=== PATIENT | male | born 1965 | race Caucasian/White ===

== ENCOUNTER → 2017-06-27 | Outpatient (CLI) | payer OTHER ==
--- NOTE | 2017-06-27 10:27 | XR ---
EXAMINATION TYPE: XR abdomen 1V DATE OF EXAM: 06/27/2017 COMPARISON: NONE HISTORY: Left lower quadrant pain TECHNIQUE: One view abdominal series FINDINGS: The osseous structures are intact. The bowel gas pattern is nonspecific. Calcifications in pelvis ar e likely vascular. Arthropathy of the hips. Degenerative and hypertrophic change of the spine. IMPRESSION: 1. Nonspecific abdomen.
== END | disposition home or self-care (01) ==
LOC: RADXRYALE 10:03
PROVIDERS: ATTEND Family Medicine
DX: R10.814 Left lower quadrant abdominal tenderness (principal)
CPT/HCPCS: 74018

== ENCOUNTER → 2017-07-06 | Outpatient (CLI) | payer OTHER ==
--- NOTE | 2017-07-06 09:13 | US ---
EXAMINATION TYPE: US kidneys/renal and bladder DATE OF EXAM: 07/06/2017 COMPARISON: NONE CLINICAL HISTORY: R31.29 Hematuria,R10.814 LLQ Abd Tenderness. Technically difficult due to large body habitus. EXAM MEASUREMENTS: Right Kidney: 11.0 x 6.5 x 5.1 cm Left Kidney: 11.9 x 6.6 x 5.3 cm Right Kidney: Hypoechoic focus in the medullary portion of the upper pole may represent cyst noted me asuring 1.3 x 1.1 x 1.1cm Left Kidney: Hypoechoic focus measuring 2.0 x 2.2 x 1.6cm is noted at the upper pole Bladder: wnl Bilateral Jets seen: Yes Cortical medullary differentiation is maintained bilaterally. No nephrolithiasis. Seen. IMPRESSION: Exam is limited. Hypoechoic lesions within the kidneys are indeterminate. Consider short interval fol low-up ultrasound to assess for stability versus dedicated CT or MRI through the kidneys.
--- NOTE | 2017-07-06 10:19 | US ---
EXAMINATION TYPE: US duplex aorta DATE OF EXAM: 07/06/2017 COMPARISON: NONE CLINICAL HISTORY: R31.29 Hematuria,R10.814 LLQ Abd Tenderness. EXAM MEASUREMENTS: Abdominal Aorta: Proximal: 2.3cm Mid: 1.7cm Distal: 1.5cm Bifurcation: Right: 1.1cm Left: 0.9 Grayscale, color Doppler imaging performed of the abdominal aorta. Triphasic waveform, color flow not ed. IMPRESSION: No evident abdominal aortic aneurysm.
== END | disposition home or self-care (01) ==
LOC: RADUSWWP 07:49
PROVIDERS: ATTEND Family Medicine
DX: N20.1 Calculus of ureter (principal); R31.29 Other microscopic hematuria; R10.814 Left lower quadrant abdominal tenderness
CPT/HCPCS: 76770; 93979

== ENCOUNTER → 2017-08-03 | Outpatient (CLI) | payer OTHER ==
--- NOTE | 2017-08-03 23:48 | CT ---
EXAMINATION TYPE: CT abdomen pelvis wo con DATE OF EXAM: 08/03/2017 COMPARISON: Renal ultrasound 07/06/2017 HISTORY: 52-year-old male Bilateral flank pain. Abnormal findings on diagnostic imaging. CT DLP: 1186 mGycm. Automated exposure control for dose reduction was used. TECHNIQUE: Contiguous axial scanning of the abdomen and pelvis without IV contrast. Coronal and sagit pepper reconstructions performed. FINDINGS: Heart is normal size without pericardial effusion. Coronary vessel calcifications are present and are unremarkable for coronary disease. Mild diffuse bronchial wall thickening in the visualized lower lungs. No pleural effusion. Low attenuation of the hepatic parenchyma. Gallbladder, adrenal glands, kidneys, and pancreas show no gross abnormality. Spleen is mildly enlarged at 14.0 cm on coronal plane. By noncontrast CT, no focal renal lesion is seen. No nephrolithiasis or hydronephrosis. Prominent 1.4 cm portacaval lymph node and 1.1 cm gastroduodenal lymph node. Findings likely reactive /post inflammatory. Mildly enlarged 9 mm right lower quadrant mesenteric lymph node. Findings probabl y reactive/post inflammatory. No dilated small bowel, free fluid, or free air. Normal appendix. Mild stool burden with some areas of mural-based containing throughout the sigmoid colon possibly due to areas of nondistention. A couple sigmoid colon diverticula are present. No pericolonic inflammato ry change. Mild atherosclerotic calcifications within the infrarenal abdominal aorta and iliac arteries without aneurysm. Bladder urine distended. Bones: Suggestion of old left hamstrings injury. Mild degenerative changes at the hips. Additional de generative changes at the SI joints, L5 hemisacralization, and degenerative changes within the mid to lower lumbar spine. Bridging anterior endplate spondylosis lower thoracic spine compatible with DISH . IMPRESSION: 1. No discrete renal lesion identified by noncontrast CT. No nephrolithiasis or hydronephrosis. Garret mmend 6 month follow-up renal ultrasound to reassess. If the findings remain indeterminate, a contras t-enhanced study may be indicated. 2. Scattered areas of mural-based thickening throughout the sigmoid colon possibly due to segments o f nondistention. Correlate with colonoscopy if routine screening has not already started. 3. Hepatic steatosis. 4. Mild splenomegaly (14.0 cm). 5. A couple diverticula in the sigmoid colon.
== END | disposition home or self-care (01) ==
LOC: RADCTMAIN 18:36
PROVIDERS: ATTEND Family Medicine
DX: K76.0 Fatty (change of) liver, not elsewhere classified (principal); R16.1 Splenomegaly, not elsewhere classified; K57.30 Diverticulosis of large intestine without perforation or abscess without bleeding; R10.9 Unspecified abdominal pain
CPT/HCPCS: 74176

== ENCOUNTER → 2017-09-12 | Outpatient (CLI) | payer OTHER ==
--- NOTE | 2017-09-12 14:41 | XR ---
Bilateral shoulders HISTORY: Chronic bilateral shoulder pain 3 views of each shoulder submitted. Correlation to prior bilateral shoulder 11/25/2015 There is no interval change. Bone mineralization, joint spaces and alignment are stable. There is an underlying scoliosis. Scoliosis. Lung apices are normal as seen. IMPRESSION: Stable exam. Shoulder MRI may be of benefit.
== END | disposition home or self-care (01) ==
LOC: RADXRYALE 09:47
PROVIDERS: ATTEND Family Medicine
DX: M25.511 Pain in right shoulder (principal); M25.512 Pain in left shoulder

== ENCOUNTER → 2017-12-29 | Outpatient (CLI) | payer OTHER ==
--- NOTE | 2017-12-29 11:04 | MR ---
EXAMINATION TYPE: MR shoulder RT wo con DATE OF EXAM: 12/29/2017 COMPARISON: X-ray dated 09/12/2017 HISTORY: Pain in right shoulder TECHNIQUE: Multiplanar, multisequence imaging of the right shoulder is performed without contrast. FINDINGS: There is mild narrowing of the glenohumeral joint. Inferior glenohumeral ligament intact. Hypertrophic spurring and narrowing of the AC joint noted. Number extending off the acromium process results in mild mass effect upon the supraspinatus tendon and muscle compatible with impingement. Cystic changes involving the humeral head likely related to chronic. Bony labrum are grossly intact. Bicipital tendon is situated the bicipital groove. Subscapularis tendon appears intact. There is abnormal signal at the insertion of the conjoined tendo n of the supra and infraspinatus tendons measuring approximately 1 cm compatible with a partial tear with no retraction. Supraspinatus tendon demonstrates a additional 7 mm area of abnormal signal in the anterior fibers ne ar its insertion compatible with partial tear. No retraction. IMPRESSION: 1. Partial tear distal margin supraspinatus and infraspinatus tendon with no evidence of retraction. 2. Impingement secondary to AC joint arthropathy.
== END | disposition home or self-care (01) ==
LOC: RADMRIMAIN 08:02
PROVIDERS: ATTEND Family Medicine
DX: M19.011 Primary osteoarthritis, right shoulder (principal); M75.111 Incomplete rotator cuff tear or rupture of right shoulder, not specified as traumatic; M75.41 Impingement syndrome of right shoulder

== ENCOUNTER 2022-10-22 01:42 | Inpatient (IN) | payer MEDICARE, OTHER ==
[2022-10-22] MEDS ORDERED: HYDROmorphone 1 MG/ML 1 ML SYRINGE IVP STA ×2 (01:58→03:24)
--- NOTE | 2022-10-22 02:19 | ED ---
General Adult HPI - General Chief complaint: Abdominal Pain Stated complaint: ABD PAIN Time Seen by Provider: 10/22/22 01:50 Source: patient, EMS Mode of arrival: EMS Limitations: no limitations - History of Present Illness Initial comments: This is a 57-year-old male with a past medical history including hypertension, previous MO presents emergency department via EMS as a transfer patient from [facility]. The patient was transferred after he was found to have acute diverticulitis with microperforation and abscess formation. The patient had significant pain and required significant pain medications at the outside facility and was transferred here for further workup and evaluation. On arrival, the patient did state that this pain began on Monday and he was unable to get to the hospital as he was taking care of his 2 sons. The patient was able to go to the hospital today and was found to have these findings. The patient continued to have generalized abdominal pain but denied of any nausea or vomiting actively. The patient did receive 10 mg of morphine for pain control during transport with EMS. On arrival, the patient did state that his pain was mildly improved. The patient denied any other acute pain or complaint at this time. - Related Data Home Medications Medication Instructions Recorded Confirmed ALPRAZolam [Xanax] 0.5 mg PO BID PRN 04/01/16 04/04/16 Albuterol Inhaler [Ventolin Hfa 1 - 2 puff INHALATION RT-Q6H PRN 04/01/16 04/04/16 Inhaler] Albuterol Nebulized [Ventolin 2.5 mg INHALATION RT-Q6H PRN 04/01/16 04/04/16 Nebulized] Sertraline [Zoloft] 50 mg PO DAILY 04/01/16 04/04/16 Previous Rx's Medication Instructions Recorded carisoprodoL [Soma] 350 mg PO TID PRN #60 tab 04/05/16 oxyCODONE-APAP 5-325MG [Percocet 1 tab PO Q8HR PRN #60 tab 04/05/16 5-325 mg] Allergies Allergy/AdvReac Type Severity Reaction Status Date / Time Sulfa (Sulfonamide Allergy Rash/Hives Verified 04/01/16 08:04 Antibiotics) Review of Systems ROS Statement: Those systems with pertinent positive or pertinent negative responses have been documented in the HPI. ROS Other: All systems not noted in ROS Statement are negative. Past Medical History Past Medical History: Asthma, Hypertension, Musculoskeletal Disorder Additional Past Medical History / Comment(s): past hx. hypertension, no longer a problem, hx. kidney stones, numbness & pain both hands & arms, PT STATED HAS HAD AN PNE VACCINE IN PAST NOT SURE OF DATE. History of Any Multi-Drug Resistant Organisms: None Reported Additional Past Surgical History / Comment(s): panniculectomy, colonoscopy, pain procedures, 12-5-16 ANT CERVICAL DECOMPRESSION W/DISCECTOMY/FUSION C4-5, C5-6, C6-7. Past Anesthesia/Blood Transfusion Reactions: No Reported Reaction Additional Past Anesthesia/Blood Transfusion Reaction / Comment(s): HAD BLOOD TRANSFUSION-NO REACTION. CLAUSTERPHOBIA Past Psychological History: Anxiety Smoking Status: Never smoker Past Alcohol Use History: None Reported Past Drug Use History: None Reported - Past Family History Mother Family Medical History: Cancer Additional Family Medical History / Comment(s): CANCER LUNG, STOMACH.BONES Father Additional Family Medical History / Comment(s): DEBBI ENCEPHALOPATHY, PHLEBITIS General Exam Limitations: no limitations General appearance: alert, in no apparent distress, obese Head exam: Present: atraumatic, normocephalic, normal inspection Eye exam: Present: normal appearance, PERRL Pupils: Present: normal accommodation ENT exam: Present: normal exam, normal oropharynx, mucous membranes moist Neck exam: Present: normal inspection, full ROM Respiratory exam: Present: normal lung sounds bilaterally Cardiovascular Exam: Present: regular rate, normal rhythm, normal heart sounds GI/Abdominal exam: Present: soft, tenderness (Tenderness noted in all abdominal quadrants) Extremities exam: Present: normal inspection, full ROM, normal capillary refill Back exam: Present: normal inspection, full ROM Neurological exam: Present: alert, oriented X3, CN II-XII intact Psychiatric exam: Present: normal affect, normal mood Skin exam: Present: warm, dry Course Vital Signs 10/22/22 10/22/22 10/22/22 01:45 01:54 03:27 Temperature 98.4 F Pulse Rate 108 H 104 H 104 H Respiratory 22 22 22 Rate Blood Pressure 171/124 159/107 140/107 O2 Sat by Pulse 92 L 90 L 93 L Oximetry EKG Findings - EKG Comments: EKG Findings:: An EKG was obtained and was interpreted by myself showing a rate of 102, NJ interval 129, QRS duration 111 and QTC of 400. This EKG showed a sinus tachycardia without any ST segment elevation or depression noted. Medical Decision Making - Medical Decision Making Was pt. sent in by a medical professional or institution (, [facility], [employer], urgent care, hospital, or jail...) When possible be specific @ -Yes, sent from [facility] emergency department Did you speak to anyone other than the patient for history (EMS, parent, family, police, friend...)? What history was obtained from this source @ -Yes, I spoke to EMS as well as the transferring physician regarding the patient's symptoms, CT findings and workup. Did you review nursing and triage notes (agree or disagree)? Why? @ -I reviewed and agree with nursing and triage notes Were old charts reviewed (outside hosp., previous admission, EMS record, old EKG, old radiological studies, urgent care reports/EKG's, jail records)? Report findings @ -Yes, I reviewed the outside chart@[email or web address] from the patient's visit to the emergency department. Differential Diagnosis (chest pain, altered mental status, abdominal pain women, abdominal pain men, vaginal bleeding, weakness, fever, dyspnea, syncope, headache, dizziness, GI bleed, back pain, seizure, CVA, palpatations, mental health)? @ -Acute diverticulitis, abscess, perforation EKG interpreted by me (3pts min.). @ -As above X-rays interpreted by me (1pt min.). @ -None done CT interpreted by me (1pt min.). @ -None done U/S interpreted by me (1pt. min.). @ -None done What testing was considered but not performed or refused? (CT, X-rays, U/S, labs)? Why? @ -Computed tomography scan was obtained at the outside facility and CT was uploaded to our system. What meds were considered but not given or refused? Why? @ -None Did you discuss the management of the patient with other professionals (professionals i.e. [facility], [employer], lab, RT, psych nurse, oncology social work, heliarc welder, teacher, preventive medicine officer, showcase maker)? Give summary @ -Yes, Dr. Zamorano was contacted regarding patient symptoms and findings on computed tomography scan. Admitting physician was also contacted regarding admission. Was smoking cessation discussed for >3mins.? @ -No Was critical care preformed (if so, how long)? @ -No Were there social determinants of health that impacted care today? How? (Homelessness, low income, unemployed, alcoholism, drug addiction, transportation, low edu. Level, literacy, decrease access to med. care, correction, rehab)? @ -No Was there de-escalation of care discussed even if they declined (Discuss DNR or withdrawal of care, Hospice)? DNR status @ -No What co-morbidities impacted this encounter? (DM, HTN, Smoking, COPD, CAD, Cancer, CVA, ARF, Chemo, Hep., AIDS, mental health diagnosis, sleep apnea, morbid obesity)? @ -Hypertension, asthma, previous MO Was patient admitted / discharged? Hospital course, mention meds given and ro alturas, prescriptions, significant lab abnormalities, going to OR and other pertinent info. @ -The patient was seen and evaluated emergency department. Physical exam, the patient was resting in bed. Vital signs on admission were within normal limits however the patient was mildly hypoxic and was started on 2 L of nasal cannula oxygen. The patient did state that he does use his brothers oxygen from time to time. The patient had laboratory workup redone here including preop labs including type and screen. EKG was also obtained. Computed tomography scan was uploaded into our system. Due to the findings on the computed tomography scan as well as the patient's symptoms, Dr. Zamorano was contacted regarding the patient. She recommended be on consult with admission to medicine. The patient's primary care physician was covered by Dr. Hermosillo who accepted the patient for admission. The patient was admitted in stable condition. Undiagnosed new problem with uncertain prognosis? @ -No Drug Therapy requiring intensive monitoring for toxicity (Heparin, Nitro, Insulin, Cardizem)? @ -No Were any procedures done? @ -No Diagnosis/symptom? @ -Acute diverticulitis with microperforation and abscess Acute, or Chronic, or Acute on Chronic? @ -Acute Uncomplicated (without systemic symptoms) or Complicated (systemic symptoms)? @ -Complicated Side effects of treatment? @ -No Exacerbation, Progression, or Severe Exacerbation? @ -No Poses a threat to life or bodily function? How? (Chest pain, USA, MO, pneumonia, PE, COPD, DKA, ARF, appy, cholecystitis, CVA, Diverticulitis, Homicidal, Suicidal, threat to staff... and all critical care pts) @ -Yes, continued microperforation and abscess can lead to further perforation leading to sepsis and possible . - Lab Data Result diagrams: 10/22/22 01:51 10/22/22 01:51 Lab Results 10/22/22 10/22/22 10/22/22 Range/Units 01:51 01:51 01:51 WBC 7.7 (3.8-10.6) k/uL RBC 5.44 (4.30-5.90) m/uL Hgb 15.9 (13.0-17.5) gm/dL Hct 47.0 (39.0-53.0) % MCV 86.5 (80.0-100.0) fL MCH 29.2 (25.0-35.0) pg MCHC 33.8 (31.0-37.0) g/dL RDW 13.4 (11.5-15.5) % Plt Count 285 (150-450) k/uL MPV 7.7 Neutrophils % (Manual) 33 % Band Neuts % (Manual) 51 % Lymphocytes % (Manual) 11 % Monocytes % (Manual) 5 % Neutrophils # (Manual) 6.40 (1.3-7.7) k/uL Lymphocytes # (Manual) 0.85 L (1.0-4.8) k/uL Monocytes # (Manual) 0.39 (0-1.0) k/uL Nucleated RBCs 0 (0-0) /100 WBC Manual Slide Review Performed PT 10.9 (9.0-12.0) sec INR 1.0 (<1.2) APTT 22.2 (22.0-30.0) sec Sodium 134 L (137-145) mmol/L Potassium 4.7 (3.5-5.1) mmol/L Chloride 97 L (98-107) mmol/L Carbon Dioxide 21 L (22-30) mmol/L Anion Gap 16 mmol/L BUN 13 (9-20) mg/dL Creatinine 0.95 (0.66-1.25) mg/dL Est GFR (CKD-EPI)AfAm >90 (>60 ml/min/1.73 sqM) Est GFR (CKD-EPI)NonAf 89 (>60 ml/min/1.73 sqM) Glucose 183 H (74-99) mg/dL Calcium 8.6 (8.4-10.2) mg/dL Total Bilirubin 0.7 (0.2-1.3) mg/dL AST 33 (17-59) U/L ALT 40 (4-49) U/L Alkaline Phosphatase 60 (38-126) U/L Total Protein 7.2 (6.3-8.2) g/dL Albumin 4.0 (3.5-5.0) g/dL Disposition Clinical Impression: Diverticulitis of intestine, part unspecified, with perforation and abscess without bleeding Disposition: ADMITTED IP TO THIS [facility] Condition: Stable Is patient prescribed a controlled substance at d/c from ED?: No Referrals: None,Stated [REFERRING] - 1-2 days Time of Disposition: 02:20 Decision to Admit Reason: Admit from EC Decision Date: 10/22/22 Decision Time: 02:20
[2022-10-22 02:30] LABS: HGB 15.9 gm/dL (13.0-17.5); MCH 29.2 pg (25.0-35.0); MCHC 33.8 g/dL (31.0-37.0); MCV 86.5 fL (80.0-100.0); Mean Platelet Volume 7.7; Platelet Count 285 k/uL (150-450); RBC 5.44 m/uL (4.30-5.90); RDW 13.4 % (11.5-15.5); WBC 7.7 k/uL (3.8-10.6)
[2022-10-22 02:38] LABS: Partial Thromboplastin Time 22.2 sec (22.0-30.0); Prothrombin Time 10.9 sec (9.0-12.0)
[2022-10-22 02:43] LABS: Band Neutrophils % 51 %; Lymphocytes # (M) 0.85 k/uL (1.0-4.8); Monocytes # (M) 0.39 k/uL (0-1.0); Neutrophils % (M) 33 %; Nucleated Red Blood Cells 0 /100 WBC (0-0); Total Cells Counted 100
[2022-10-22 03:08] LABS: ALT 40 U/L (4-49); AST 33 U/L (17-59); African American GFR (CKD) >90 (>60 ml/min/1.73 sqM); Alkaline Phosphatase 60 U/L (38-126); Anion Gap 16 mmol/L; Blood Urea Nitrogen 13 mg/dL (9-20); Calcium 8.6 mg/dL (8.4-10.2); Carbon Dioxide 21 mmol/L (22-30); Chloride 97 mmol/L (98-107); Glucose 183 mg/dL (74-99); Non-African American GFR(CKD) 89 (>60 ml/min/1.73 sqM); Potassium 4.7 mmol/L (3.5-5.1); Sodium 134 mmol/L (137-145); Total Bilirubin 0.7 mg/dL (0.2-1.3); Total Protein 7.2 g/dL (6.3-8.2)
[2022-10-22] MEDS ORDERED: NALOXONE 0.4 MG/ML 1 ML VIAL IV PRN ×2 (04:58→05:29)
--- NOTE | 2022-10-22 05:03 | P.HPIM ---
History of Present Illness H&P Date: 10/22/22 Patient is a 57-year-old male with a PMH of cervical DJD, asthma, hypertension, who initially presented to [facility] emergency room with complaints of abdominal discomfort. Patient reports that his symptoms started roughly 4-5 days ago with primarily left-sided abdominal discomfort which has been radiating throughout the abdomen. Reports that his symptoms worsened over the past 24 hours and prompted him to come to the emergency room. Reports the pain is aching in nature, occurring throughout the abdomen, non-out of 10 on maximal intensity, occurring constantly, alleviated by rest, exacerbated by food, straining, or certain movements. Denied any prior history of such pain. At boom e of interview, the patient reports that his pain is improved after having received IV pain medication. At [facility], CT abdomen and pelvis at [facility] emergency room revealed findings consistent with acute diverticulitis with micro perforation and possible early abscess formation. EKG in the emergency room revealed sinus tachycardia [address]/T-wave changes noted as reviewed by me. Laboratory evaluation revealed WBC count 7.7, hemoglobin 15.9, sodium 134, chloride 97, CO2 21, creatinine 0.95, glucose 183. ED documentation reviewed and case discussed with ED provider. Review of systems: Pertinent positives and negatives as discussed in HPI, a complete review of systems was performed and all other systems are negative. Physical examination: Vital signs reviewed General: non toxic, no distress, appears at stated age, morbidly obese Derm: no unusual rashes/lesions, warm Head: atraumatic, normocephalic, symmetric Eyes: EOMI, no lid lag, anicteric sclera, pupils equal round reactive to light ENT: Nose and ears atraumatic Neck: No cervical lymphadenopathy, trachea midline, supple Mouth: no lip lesion, mucus membranes moist Cardiovascular: S1S2 reg, no murmur, positive dorsalis pedis pulse bilateral, no edema Lungs: CTA bilateral, no rhonchi, no rales, no accessory muscle use Abdominal: soft, left lower quadrant abdominal tenderness, no guarding Ext: muscle strength 5 out of 5 in all 4 extremities grossly, no gross muscle atrophy, no contractures, Neuro: CN II-XI grossly intact, no gross focal neuro deficits Psych: Alert, oriented, appropriate affect Assessment: Acute diverticulitis with microperforation and possible abscess formation Hyperglycemia Chronic conditions: Hypertension, asthma, cervical DJD Imaging: CT abdomen and pelvis at [facility] emergency room revealed findings consistent with acute diverticulitis with micro perforation and possible early abscess formation. EKG in the emergency room revealed sinus tachycardia [address]/T-wave changes noted as reviewed by me. Data Review: Laboratory evaluation revealed WBC count 7.7, hemoglobin 15.9, sodium 134, chloride 97, CO2 21, creatinine 0.95, glucose 183. Plan: Start patient on IV ceftriaxone 2 g every 24 hours and Flagyl 500 mg every 8 hourly IV IVFs with NS 130 mL/hr General surgery consulted Pain control Nothing by mouth for now Follow-up blood cultures Cardiac monitoring Blood glucose monitoring Resume home medications once reconciled DVT prophylaxis: Heparin subq The patient is admitted with an anticipated greater than 2 midnight stay for evaluation of diverticulitis CODE STATUS: Full Code Discussed with: Patient Anticipated discharge place: Home Past Medical History Past Medical History: Asthma, Hypertension, Musculoskeletal Disorder Additional Past Medical History / Comment(s): past hx. hypertension, no longer a problem, hx. kidney stones, numbness & pain both hands & arms, PT STATED HAS HAD AN PNE VACCINE IN PAST NOT SURE OF DATE. History of Any Multi-Drug Resistant Organisms: None Reported Additional Past Surgical History / Comment(s): panniculectomy, colonoscopy, pain procedures, 04-04- ANT CERVICAL DECOMPRESSION W/DISCECTOMY/FUSION C4-5, C5-6, C6-7. Past Anesthesia/Blood Transfusion Reactions: No Reported Reaction Additional Past Anesthesia/Blood Transfusion Reaction / Comment(s): HAD BLOOD TRANSFUSION-NO REACTION. CLAUSTERPHOBIA Past Psychological History: Anxiety Smoking Status: Never smoker Past Alcohol Use History: None Reported Past Drug Use History: None Reported - Past Family History Mother Family Medical History: Cancer Additional Family Medical History / Comment(s): CANCER LUNG, STOMACH.BONES Father Additional Family Medical History / Comment(s): DEBBI ENCEPHALOPATHY, PH LEBITIS Medications and Allergies Home Medications Medication Instructions Recorded Confirmed Type ALPRAZolam [Xanax] 0.5 mg PO BID PRN 04/01/16 04/04/16 History Albuterol Inhaler [Ventolin Hfa 1 - 2 puff INHALATION RT-Q6H PRN 04/01/16 04/04/16 History Inhaler] Albuterol Nebulized [Ventolin 2.5 mg INHALATION RT-Q6H PRN 04/01/16 04/04/16 H istory Nebulized] Sertraline [Zoloft] 50 mg PO DAILY 04/01/16 04/04/16 History carisoprodoL [Soma] 350 mg PO TID PRN #60 tab 04/05/16 Rx oxyCODONE-APAP 5-325MG [Percocet 1 tab PO Q8HR PRN #60 tab 04/05/16 Rx 5-325 mg] Allergies Allergy/AdvReac Type Severity Reaction Status Date / Time Sulfa (Sulfonamide Allergy Rash/Hives Verified 04/01/16 08:04 Antibiotics) Physical Exam Vitals: Vital Signs Temp Pulse Resp BP Pulse Ox 10/22/22 03:27 104 H 22 140/107 93 L 10/22/22 01:54 104 H 22 159/107 90 L 10/22/22 01:45 98.4 F 108 H 22 171/124 92 L Intake and Output 10/21/22 10/21/22 10/22/22 14:59 22:59 06:59 Other: Weight 142.428 kg Results CBC & Chem 7: 10/22/22 01:51 10/22/22 01:51 Labs: Abnormal Lab Results - Last 24 Hours (Table) 10/22/22 10/22/22 Range/Units 01:51 01:51 Lymphocytes # (Manual) 0.85 L (1.0-4.8) k/uL Sodium 134 L (137-145) mmol/L Chloride 97 L (98-107) mmol/L Carbon Dioxide 21 L (22-30) mmol/L Glucose 183 H (74-99) mg/dL
[2022-10-22] MEDS ORDERED: ACETAMINOPHEN TAB 325 MG TAB PO PRN (05:29)
[2022-10-22] MEDS: HYDROmorphone 1 MG/ML 1 ML SYRINGE IVP PRN ×6 (06:48→22:27)
[2022-10-22] MEDS: metroNIDAZOLE-NS PMX 500 MG in SALINE 1 100ML.BAG IVPB SCH ×3 (07:03→21:42)
[2022-10-22] MEDS ORDERED: ONDANSETRON 4 MG/2 ML VIAL IVP PRN (07:15)
[2022-10-22 07:35] LABS: Glucose,Whole Blood 158 mg/dL (70-110)
[2022-10-22] MEDS: HEPARIN SODIUM,PORCINE/PF 5,000 UNIT/0.5 ML SYRINGE SQ SCH ×2 (07:42→16:36)
[2022-10-22] MEDS: INSULIN ASPART (NovoLOG) 100 UNIT/ML VIAL SQ SCH ×4 (07:44→21:41)
[2022-10-22] MEDS: SODIUM CHLORIDE 0.9% 1,000 ML IV SCH ×3 (08:00→21:43)
[2022-10-22 08:15] LABS: Appearance,Urine Cloudy (Clear); Bilirubin,Urine Negative (Negative); Blood,Urine Small (Negative); Color,Urine Yellow; Glucose,Urine (UA) Negative (Negative); Ketones,Urine 1+ (Negative); Leukocyte Esterase,Urine Negative (Negative); Mucus,Urine Rare /hpf; Nitrite,Urine Negative (Negative); Protein,Urine 2+ (Negative); RBC,Urine 6 /hpf (0-5); Squamous Epithelial Cell,Urine 3 /hpf (0-4); Urobilinogen,Urine <2.0 mg/dL (<2.0); WBC,Urine 2 /hpf (0-5)
[2022-10-22 08:16] LABS: Specific Gravity,Urine >1.050 (1.001-1.035)
[2022-10-22] MEDS: MORPHINE SULFATE 4 MG/ML SYRINGE IVP PRN (12:12)
--- NOTE | 2022-10-22 13:28 | P.PN ---
Subjective Progress Note Date: 10/22/22 Hospital course: Patient is a very pleasant 57-year-old male with a past medical history of coronary artery disease with previous [place] and stent placement in October 2021, cervical DJD, asthma, hypertension, and hypothyroidism. He initially presented to [facility] emergency room with complaints of abdominal discomfort on 10/21/22. Patient reports that his symptoms started approximately 4-5 days previously with primarily left-sided abdominal discomfort which has been radiating throughout the abdomen. Reports that his symptoms worsened over the past 24 hours and prompted him to come to the emergency room. At [facility], CT abdomen and pelvis was completed which reportedly revealed findings consistent with acute diverticulitis with micro perforation and possible early abscess formation. Patient was transferred to our facility for admission and evaluation by general surgeon. Upon arrival to our facility, labs were completed and reviewed. CBC unremarkable. Coags normal findings. BMP showing mild hyponatremia with sodium 134, hypochloremia with chloride 97, and hypocarbia with bicarb of 21. Glucose 183. Liver enzymes unremarkable. Urinalysis negative for infection. EKG was completed showing sinus tachycardia at 102 bpm with T-wave inversion in inferior lead [address] abnormalities upon personal review and interpretation.. Patient was started on IV fluid hydration along with IV antibiotics Flagyl and Rocephin and admitted under our services with consultation to general surgery. Physical examination:. General: non toxic, no distress, appears at stated age Derm: warm, dry Head: atraumatic, normocephalic, symmetric Eyes: EOMI, no lid lag, anicteric sclera Mouth: no lip lesion, mucus membranes moist Cardiovascular: S1S2 reg, no murmur, positive posterior tibial pulse bilateral, Lungs: CTA bilateral, no rhonchi, no rales , no accessory muscle use Abdominal: Diffuse Tenderness to palpation, worse in right lower quadrant Ext: no gross muscle atrophy, no edema, no contractures Neuro: CN II-XI grossly intact, no focal neuro deficits Psych: Alert, oriented, appropriate affect Assessment and plan of care: Acute diverticulitis with microperforation and possible abscess formation Hypochloremic Hyponatremia -Continue IV antibiotics with Rocephin 2 g every 24 hours and Flagyl 500 mg every 8 hours. -Gen. surgery consulted, appreciate recommendations. -Maintain NPO pending further recommendations from general surgeon. -Continue with symptomatic care and pain management. -Continue with IV fluid hydration with 0.9% normal saline at 130 mL's per hour. -Follow up on blood culture. -Order placed for repeat CBC and CMP with a.m. labs, will follow closely. Hyperglycemia -Patient was placed on glycemic protocol with NovoLog sliding scale and hemoglobin A1c to be completed. -Follow up with hemoglobin A1c results. Hypertension -Home medications reviewed and reordered metoprolol 50 mg daily and lisinopril 10 mg daily Hyperlipidemia -Continue daily medication regimen with atorvastatin 80 mg daily. Hypothyroidism -Continue daily medication regimen with levothyroxine 100 g daily. Imaging: -No new imaging completed for review. Data Review: -Vital signs reviewed. Blood pressure 138/97, heart rate 102, respiratory rate 22, and SpO2 94% on 3 L O2 via nasal cannula. -Morning labs reviewed. CBC and coags unremarkable. BMP revealing mild hyponatremia with sodium 134, hypochloremia with chloride of 97, and hypocarbia with bicarb of 21. Glucose slightly elevated at 183. Liver profile unremarkable. Urinalysis negative for infection. CODE STATUS: Full Code DVT prophylaxis: Heparin Anticipated discharge: Clinical course to determine Anticipated discharge place: Home Patient was seen independently by Nurse Pracitioner. This document was prepared using [employer] dictation software. Please allow for errors in religious healer, while rare they do occur. I reviewed the documentation as provided by the DON above, who is the original author of this note. I agree with the documented assessment and plan, with the following changes: none Objective - Vital Signs Vital signs: Vital Signs Temp 98.4 F 10/22/22 01:45 Pulse 102 H 10/22/22 07:05 Resp 22 10/22/22 07:05 BP 138/97 10/22/22 07:05 Pulse Ox 94 L 10/22/22 07:05 FiO2 Intake & Output 10/21/22 10/22/22 10/22/22 18:59 06:59 18:59 Weight 142.428 kg - Labs CBC & Chem 7: 10/24/22 06:03 10/24/22 06:03 Labs: Abnormal Lab Results - Last 24 Hours (Table) 10/22/22 10/22/22 10/22/22 Range/Units 01:51 01:51 07:32 Lymphocytes # (Manual) 0.85 L (1.0-4.8) k/uL Sodium 134 L (137-145) mmol/L Chloride 97 L (98-107) mmol/L Carbon Dioxide 21 L (22-30) mmol/L Glucose 183 H (74-99) mg/dL POC Glucose (mg/dL) 158 H (70-110) mg/dL Ur Specific [place] (1.001-1.035) Urine Protein (Negative) Urine Ketones (Negative) Urine Blood (Negative) Urine RBC (0-5) /hpf Urine Mucus (None) /hpf 10/22/22 Range/Units 08:00 Lymphocytes # (Manual) (1.0-4.8) k/uL Sodium (137-145) mmol/L Chloride (98-107) mmol/L Carbon Dioxide (22-30) mmol/L Glucose (74-99) mg/dL POC Glucose (mg/dL) (70-110) mg/dL Ur Specific [place] >1.050 H (1.001-1.035) Urine Protein 2+ H (Negative) Urine Ketones 1+ H (Negative) Urine Blood Small H (Negative) Urine RBC 6 H (0-5) /hpf Urine Mucus Rare H (None) /hpf
[2022-10-22] MEDS: METOPROLOL SUCCINATE (ER) 50 MG TAB.ER.24H PO SCH (13:35)
[2022-10-22] MEDS: lisinopriL 10 MG TAB PO SCH (13:35)
[2022-10-22] MEDS: ATORVASTATIN 80 MG TAB PO SCH (13:35)
[2022-10-22] MEDS: LEVOTHYROXINE 100 MCG TAB PO SCH (13:35)
[2022-10-22 16:27] LABS: Glucose,Whole Blood 125 mg/dL (70-110)
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
[2022-10-22 20:58] LABS: Glucose,Whole Blood 171 mg/dL (70-110)
[2022-10-23] MEDS: HEPARIN SODIUM,PORCINE/PF 5,000 UNIT/0.5 ML SYRINGE SQ SCH ×4 (00:25→23:25)
[2022-10-23] MEDS: HYDROmorphone 1 MG/ML 1 ML SYRINGE IVP PRN ×7 (01:41→22:23)
[2022-10-23] MEDS: SODIUM CHLORIDE 0.9% 1,000 ML IV SCH ×3 (05:12→20:49)
[2022-10-23 05:46] LABS: Glucose,Whole Blood 181 mg/dL (70-110)
[2022-10-23] MEDS: metroNIDAZOLE-NS PMX 500 MG in SALINE 1 100ML.BAG IVPB SCH ×3 (06:21→22:23)
[2022-10-23] MEDS: LEVOTHYROXINE 100 MCG TAB PO SCH (06:22)
[2022-10-23] MEDS: INSULIN ASPART (NovoLOG) 100 UNIT/ML VIAL SQ SCH ×4 (06:22→20:49)
[2022-10-23 06:25] LABS: HCT 40.4 % (39.0-53.0); HGB 13.3 gm/dL (13.0-17.5); MCH 29.3 pg (25.0-35.0); MCV 88.8 fL (80.0-100.0); Mean Platelet Volume 7.5; Platelet Count 239 k/uL (150-450); RBC 4.54 m/uL (4.30-5.90); RDW 13.7 % (11.5-15.5); WBC 9.3 k/uL (3.8-10.6)
[2022-10-23 06:38] LABS: ALT 27 U/L (4-49); AST 24 U/L (17-59); African American GFR (CKD) >90 (>60 ml/min/1.73 sqM); Albumin/Globulin Ratio 1.1; Alkaline Phosphatase 61 U/L (38-126); Anion Gap 9 mmol/L; Blood Urea Nitrogen 15 mg/dL (9-20); Calcium 7.6 mg/dL (8.4-10.2); Carbon Dioxide 25 mmol/L (22-30); Chloride 99 mmol/L (98-107); Globulin 2.8 g/dL; Glucose 178 mg/dL (74-99); Non-African American GFR(CKD) 83 (>60 ml/min/1.73 sqM); Potassium 4.3 mmol/L (3.5-5.1); Sodium 133 mmol/L (137-145); Total Bilirubin 0.4 mg/dL (0.2-1.3); Total Protein 5.8 g/dL (6.3-8.2)
[2022-10-23] MEDS: METOPROLOL SUCCINATE (ER) 50 MG TAB.ER.24H PO SCH (07:42)
[2022-10-23] MEDS: ATORVASTATIN 80 MG TAB PO SCH (07:42)
[2022-10-23] MEDS: lisinopriL 10 MG TAB PO SCH (07:42)
[2022-10-23] MEDS: ALBUTEROL HFA INHALER INHALATION PRN ×3 (08:05→20:17)
[2022-10-23 11:08] LABS: Glucose,Whole Blood 132 mg/dL (70-110)
[2022-10-23] MEDS: ACETAMINOPHEN IV (For NPO) 1,000 MG in EMPTY BAG 1 BAG IVPB SCH ×2 (14:52→20:48)
[2022-10-23] MEDS: KETOROLAC 15 MG/ML 1 ML VIAL IVP SCH ×2 (14:53→20:47)
--- NOTE | 2022-10-23 15:52 | P.PN ---
Subjective Progress Note Date: 10/23/22 Hospital course: Patient is a very pleasant 57-year-old male with a past medical history of coronary artery disease with previous [place] and stent placement in October 2021, cervical DJD, asthma, hypertension, and hypothyroidism. He initially presented to [facility] emergency room with complaints of abdominal discomfort on 10/21/22. Patient reports that his symptoms started approximately 4-5 days previously with primarily left-sided abdominal discomfort which has been radiating throughout the abdomen. Reports that his symptoms worsened over the past 24 hours and prompted him to come to the emergency room. At [facility], CT abdomen and pelvis was completed which reportedly revealed findings consistent with acute diverticulitis with micro perforation and possible early abscess formation. Patient was transferred to our facility for admission and evaluation by general surgeon. Upon arrival to our facility, labs were completed and reviewed. CBC unremarkable. Coags normal findings. BMP showing mild hyponatremia with sodium 134, hypochloremia with chloride 97, and hypocarbia with bicarb of 21. Glucose 183. Liver enzymes unremarkable. Urinalysis negative for infection. EKG was completed showing sinus tachycardia at 102 bpm with T-wave inversion in inferior lead [address] abnormalities upon personal review and interpretation.. Patient was started on IV fluid hydration along with IV antibiotics Flagyl and Rocephin and admitted under our services with consultation to general surgery. Physical examination:. Patient seen and fully evaluated at bedside this morning. He has been tolerating oral intake with ice chips and popsicles. However patient does report increased right lower quadrant and left lower quadrant pain and bloatingthis morning. Patient denies any episodes of nausea or vomiting, he denies passing any flatus or having a bowel movement. General: non toxic, no distress, appears at stated age Derm: warm, dry Head: atraumatic, normocephalic, symmetric Eyes: EOMI, no lid lag, anicteric sclera Mouth: no lip lesion, mucus membranes moist Cardiovascular: S1S2 reg, no murmur, positive posterior tibial pulse bilateral, Lungs: CTA bilateral, no rhonchi, no rales , no accessory muscle use Abdominal: Diffuse Tenderness to palpation worse in the right lower quadrant and left lower quadrant, taut and distended. Ext: no gross muscle atrophy, no edema, no contractures Neuro: CN II-XI grossly intact, no focal neuro deficits Psych: Alert, oriented, appropriate affect Assessment and plan of care: Acute diverticulitis with microperforation and possible abscess formation Hypochloremic Hyponatremia -Continue IV antibiotics with Rocephin 2 g every 24 hours and Flagyl 500 mg every 8 hours. -Gen. surgery following, review documentation in chart, currently recommending continued conservative treatment with IV fluids and antibiotics. -Maintain NPO pending further recommendations from general surgeon. -Continue with symptomatic care and pain management. -Continue with IV fluid hydration with 0.9% normal saline at 130 mL's per hour. -blood culture showing no growth to date -Order placed for repeat CBC and BMP with a.m. labs, will follow closely. Hyperglycemia, hemoglobin A1c 7% Resulting in diagnosis of type 2 diabetes mellitus. -Continue with glycemic protocol with NovoLog sliding scale. -Will plan to discharge patient home on metformin 500 mg twice a day. -Consult placed to case management for ordering and assistance obtaining of diabetic supplies. Hypertension -Continue metoprolol 50 mg daily and lisinopril 10 mg daily Hyperlipidemia -Continue daily medication regimen with atorvastatin 80 mg daily. Hypothyroidism -Continue daily medication regimen with levothyroxine 100 g daily. Imaging: -No new imaging completed for review. Data Review: -Vital signs reviewed. Blood pressure 154/97, heart rate 81, respiratory rate 20, SpO2 96% on 3 L O2, temp 98.4F. Patient has sleep apnea and has been using oxygen nightly, ddiscussed with RN importance of weaning off oxygen. -Morning labs reviewed. CBC remains unremarkable. BMP revealing mild hyponatremia with sodium 133 in chloride improving to 99 from previous 97. Glucose elevated at 181and hemoglobin A1c resulting at 7%. CODE STATUS: Full Code DVT prophylaxis: Heparin Anticipated discharge: Clinical course to determine Anticipated discharge place: Home Patient was seen independently by Nurse Pracitioner. This document was prepared using [employer] dictation software. Please allow for errors in segmental wall installer, while rare they do occur. I reviewed the documentation as provided by the DON above, who is the original author of this note. I agree with the documented assessment and plan, with the following changes: none Objective - Vital Signs Vital signs: Vital Signs Temp 98.4 F 10/23/22 08:00 Pulse 81 10/23/22 08:00 Resp 20 10/23/22 08:00 BP 154/97 10/23/22 08:00 Pulse Ox 96 10/23/22 08:00 FiO2 Intake & Output 10/22/22 10/23/22 10/23/22 18:59 06:59 18:59 Weight 142.428 kg Other: # Voids 0 3 - Labs CBC & Chem 7: 10/24/22 06:03 10/24/22 06:03 Labs: Abnormal Lab Results - Last 24 Hours (Table) 10/22/22 10/22/22 10/23/22 Range/Units 16:25 20:55 05:30 Sodium 133 L (137-145) mmol/L Glucose 178 H (74-99) mg/dL POC Glucose (mg/dL) 125 H 171 H (70-110) mg/dL Calcium 7.6 L (8.4-10.2) mg/dL Total Protein 5.8 L (6.3-8.2) g/dL Albumin 3.0 L (3.5-5.0) g/dL 10/23/22 Range/Units 05:44 Sodium (137-145) mmol/L Glucose (74-99) mg/dL POC Glucose (mg/dL) 181 H (70-110) mg/dL Calcium (8.4-10.2) mg/dL Total Protein (6.3-8.2) g/dL Albumin (3.5-5.0) g/dL
[2022-10-23 16:14] LABS: Glucose,Whole Blood 175 mg/dL (70-110)
[2022-10-23] MEDS: PIPERACILLIN-TAZOBACTAM 3.375 GM in SODIUM CHLORIDE 0.9% 100 ML IVPB SCH ×2 (17:15→23:26)
[2022-10-23 20:49] LABS: Glucose,Whole Blood 116 mg/dL (70-110)
[2022-10-23] MEDS: MELATONIN 3 MG TABLET PO PRN (22:25)
--- NOTE | 2022-10-23 22:36 | P.PN ---
Subjective Progress Note Date: 10/23/22 Principal diagnosis: Patient reports mild improvement of lower abdominal pain. He is passing flatus and having bowel movements. No blood in stools. Continue with ice chips and p opsicles. Continue IV antibiotics. Nonnarcotic pain management described. Objective - Vital Signs Vital signs: Vital Signs Temp 98.6 F 10/23/22 19:20 Pulse 83 10/23/22 19:20 Resp 20 10/23/22 19:20 BP 116/74 10/23/22 19:20 Pulse Ox 92 L 10/23/22 19:20 FiO2 Intake & Output 10/23/22 10/23/22 10/24/22 06:59 18:59 06:59 Other: # Voids 3 3 - Labs CBC & Chem 7: 10/23/22 05:30 10/23/22 05:30 Labs: Abnormal Lab Results - Last 24 Hours (Table) 10/23/22 10/23/22 10/23/22 Range/Units 05:30 05:30 05:44 Sodium 133 L (137-145) mmol/L Glucose 178 H (74-99) mg/dL POC Glucose (mg/dL) 181 H (70-110) mg/dL Hemoglobin A1c 7.0 H (<=6.0) % Calcium 7.6 L (8.4-10.2) mg/dL Total Protein 5.8 L (6.3-8.2) g/dL Albumin 3.0 L (3.5-5.0) g/dL 10/23/22 10/23/22 10/23/22 Range/Units 11:07 16:13 20:47 Sodium (137-145) mmol/L Glucose (74-99) mg/dL POC Glucose (mg/dL) 132 H 175 H 116 H (70-110) mg/dL Hemoglobin A1c (<=6.0) % Calcium (8.4-10.2) mg/dL Total Protein (6.3-8.2) g/dL Albumin (3.5-5.0) g/dL Microbiology - Last 24 Hours (Table) 10/22/22 07:00 Blood Culture - Preliminary Blood
[2022-10-24] MEDS: HYDROmorphone 1 MG/ML 1 ML SYRINGE IVP PRN ×7 (01:58→21:47)
[2022-10-24] MEDS: ACETAMINOPHEN IV (For NPO) 1,000 MG in EMPTY BAG 1 BAG IVPB SCH ×2 (02:51→07:48)
[2022-10-24] MEDS: KETOROLAC 15 MG/ML 1 ML VIAL IVP SCH ×4 (02:51→20:36)
[2022-10-24] MEDS: SODIUM CHLORIDE 0.9% 1,000 ML IV SCH ×3 (05:06→21:23)
[2022-10-24 06:40] LABS: Glucose,Whole Blood 123 mg/dL (70-110)
[2022-10-24] MEDS: INSULIN ASPART (NovoLOG) 100 UNIT/ML VIAL SQ SCH ×4 (06:41→20:30)
[2022-10-24] MEDS: LEVOTHYROXINE 100 MCG TAB PO SCH (06:44)
[2022-10-24] MEDS: metroNIDAZOLE-NS PMX 500 MG in SALINE 1 100ML.BAG IVPB SCH ×3 (06:44→21:47)
[2022-10-24] MEDS: METOPROLOL SUCCINATE (ER) 50 MG TAB.ER.24H PO SCH (07:47)
[2022-10-24] MEDS: ATORVASTATIN 80 MG TAB PO SCH (07:47)
[2022-10-24] MEDS: HEPARIN SODIUM,PORCINE/PF 5,000 UNIT/0.5 ML SYRINGE SQ SCH ×3 (07:47→23:41)
[2022-10-24] MEDS: lisinopriL 10 MG TAB PO SCH (07:47)
[2022-10-24] MEDS: PIPERACILLIN-TAZOBACTAM 3.375 GM in SODIUM CHLORIDE 0.9% 100 ML IVPB SCH ×3 (07:55→23:41)
[2022-10-24] MEDS: ALBUTEROL HFA INHALER INHALATION PRN ×2 (08:44→21:43)
[2022-10-24 09:19] LABS: BUN/Creat Ratio 16.92 Ratio (12.00-20.00); Blood Urea Nitrogen 20.3 mg/dL (9.0-27.0); Calcium 7.6 mg/dL (8.7-10.3); Carbon Dioxide 24.5 mmol/L (21.6-31.8); Chloride 102 mmol/L (96-109); Glucose 132 mg/dL (70-110); Potassium 4.1 mmol/L (3.5-5.5); Sodium 138 mmol/L (135-145)
[2022-10-24 09:27] LABS: HCT 36.8 % (39.6-50.0); HGB 11.8 d/dL (12.0-15.0); MCH 28.9 pg (27.0-32.0); MCHC 32.1 d/dL (32.0-37.0); Mean Platelet Volume 10.3 FL (9.5-12.2); NRBC Per 100 WBC 0 X 10*3/uL (0.00-0.01); Platelet Count 266 X 10*3/uL (140-440); RBC 4.09 X 10*6/uL (4.40-5.60); RDW 14.4 % (11.5-14.5); WBC 8.32 X 10*3/uL (4.50-10.00)
[2022-10-24 10:38] LABS: Basophils # (A) 0.04 X 10*3/uL (0.00-0.10); Basophils % (A) 0.5 %; Eosinophils # (A) 0.21 X 10*3/uL (0.04-0.35); Eosinophils % (A) 2.5 %; Lymphocytes % (A) 15.6 %; Monocytes # (A) 0.44 X 10*3/uL (0.20-1.00); Monocytes % (A) 5.3 %; Neutrophils # (A) 6.26 X 10*3/uL (1.80-7.70); Neutrophils % (A) 75.3 %; RBC Morphology Normal (Normal)
--- NOTE | 2022-10-24 11:35 | P.PN ---
Subjective Progress Note Date: 10/24/22 CHIEF COMPLAINT: Ruptured diverticulitis HISTORY OF PRESENT ILLNESS: Patient admitted to the hospital with acute diverticulitis with microperforation and abscess. He is maintaining antibiotics. Patient reporting that his pain is improving but still rates it about 7 out of 10. He does have pain with movement. He is nauseated occasionally. He did have gas and bowel movements. No blood in the stool. White count normal at 8.32. Hgb 11.8 platelets 266. afebrile. PHYSICAL EXAM: VITAL SIGNS: Reviewed GENERAL: Well-developed in no acute distress. HEENT: No sclera icterus. Extraocular movements grossly intact. Moist buccal mucosa. Head is atraumatic, normocephalic. Hears conversational speech. No nasal drainage. NECK: Supple without lymphadenopathy. CHEST: Non-labored respirations and equal bilateral excursions. CARDIOVASCULAR: Palpable 2+ radial pulses. ABDOMEN: Soft. Nondistended. Tenderness with palpation in the suprapubic, left lower quadrant and right lower MUSCULOSKELETAL: No clubbing or cyanosis. NEUROLOGIC: No focal or lateralizing signs. Cranial nerves II through XII grossly intact. PSYCH: Appropriate affect. Alert and oriented to person, place and time. SKIN: Well perfused. Good skin turgor. ASSESSMENT: 1. Acute diverticulitis with microperforation and possible early abscess PLAN: -Keep patient nothing by mouth except for ice and popsicles -Continue IV antibiotics -Continue pain management -Continue to monitor Physician Division Engineer note has been reviewed by physician. Signing provider agrees with the documented findings, assessment, and plan of care. Objective - Vital Signs Vital signs: Vital Signs Temp 98.3 F 10/24/22 07:04 Pulse 73 10/24/22 07:04 Resp 17 10/24/22 07:04 BP 140/93 10/24/22 07:04 Pulse Ox 91 L 10/24/22 07:04 FiO2 Intake & Output 10/23/22 10/24/22 10/24/22 18:59 06:59 18:59 Other: Voiding Method Toilet # Voids 3 3 - Labs CBC & Chem 7: 10/24/22 06:03 10/24/22 06:03 Labs: Abnormal Lab Results - Last 24 Hours (Table) 10/23/22 10/23/22 10/24/22 Range/Units 16:13 20:47 06:03 RBC 4.09 L (4.40-5.60) X 10*6/uL Hgb 11.8 L (12.0-15.0) d/dL Hct 36.8 L (39.6-50.0) % Glucose (70-110) mg/dL POC Glucose (mg/dL) 175 H 116 H (70-110) mg/dL Calcium (8.7-10.3) mg/dL 10/24/22 10/24/22 Range/Units 06:03 06:38 RBC (4.40-5.60) X 10*6/uL Hgb (12.0-15.0) d/dL Hct (39.6-50.0) % Glucose 132 H (70-110) mg/dL POC Glucose (mg/dL) 123 H (70-110) mg/dL Calcium 7.6 L (8.7-10.3) mg/dL Microbiology - Last 24 Hours (Table) 10/22/22 07:00 Blood Culture - Preliminary Blood
[2022-10-24 11:48] LABS: Glucose,Whole Blood 157 mg/dL (70-110)
--- NOTE | 2022-10-24 14:17 | P.PN ---
Subjective Progress Note Date: 10/24/22 Hospital course: Patient is a very pleasant 57-year-old male with a past medical history of coronary artery disease with previous AL and stent placement in October 2021, cervical DJD, asthma, hypertension, and hypothyroidism. He initially presented to [facility] emergency room with complaints of abdominal discomfort on 10/21/22. Patient reports that his symptoms started approximately 4-5 days previously with primarily left-sided abdominal discomfort which has been radiating throughout the abdomen. Reports that his symptoms worsened over the past 24 hours and prompted him to come to the emergency room. At [facility], CT abdomen and pelvis was completed which reportedly revealed findings consistent with acute diverticulitis with micro perforation and possible early abscess formation. Patient was transferred to our facility for admission and evaluation by general surgeon. Upon arrival to our facility, labs were completed and reviewed. CBC unremarkable. Coags normal findings. BMP showing mild hyponatremia with sodium 134, hypochloremia with chloride 97, and hypocarbia with bicarb of 21. Glucose 183. Liver enzymes unremarkable. Urinalysis negative for infection. EKG was completed showing sinus tachycardia at 102 bpm with T-wave inversion in inferior lead [address] abnormalities upon personal review and interpretation.. Patient was started on IV fluid hydration along with IV antibiotics Flagyl and Rocephin and admitted under our services with consultation to general surgery. Physical examination:. Patient seen and fully evaluated at bedside this morning. He has been tolerating oral intake with ice chips and popsicles. He denies any episodes of nausea or vomiting. Patient reports he started passing flatus yesterday afternoon and has since had multiple episodes of loose bowel movements. He reports minimal improvement of pain. General: non toxic, no distress, appears at stated age Derm: warm, dry Head: atraumatic, normocephalic, symmetric Eyes: EOMI, no lid lag, anicteric sclera Mouth: no lip lesion, mucus membranes moist Cardiovascular: S1S2 reg, no murmur, positive posterior tibial pulse bilateral, Lungs: CTA bilateral, no rhonchi, no rales , no accessory muscle use Abdominal: Diffuse Tenderness to palpation worse in the right lower quadrant and left lower quadrant, soft and distended. Ext: no gross muscle atrophy, no edema, no contractures Neuro: CN II-XI grossly intact, no focal neuro deficits Psych: Alert, oriented, appropriate affect Assessment and plan of care: Acute diverticulitis with microperforation and possible abscess formation Hypochloremic Hyponatremia -Continue IV antibiotics with Rocephin 2 g every 24 hours and Flagyl 500 mg every 8 hours. -Gen. surgery following, discussed plan of care with general surgery PA recommending continuation of ice chips and popsicles at this time awaiting advancement of diet. -Continue with symptomatic care and pain management. -Continue with IV fluid hydration with 0.9% normal saline at 130 mL's per hour may discontinue once diet is advanced. -Blood culture showing no growth to date Hyperglycemia, hemoglobin A1c 7% Resulting in newly diagnosed type 2 diabetes mellitus. -Continue with glycemic protocol with NovoLog sliding scale. -Will plan to discharge patient home on metformin 500 mg twice a day. -Consult placed to case management for ordering and assistance obtaining of diabetic supplies. Hypertension -Continue metoprolol 50 mg daily and lisinopril 10 mg daily Hyperlipidemia -Continue daily medication regimen with atorvastatin 80 mg daily. Hypothyroidism -Continue daily medication regimen with levothyroxine 100 g daily. Imaging: -No new imaging completed for review. Data Review: -Vital signs reviewed. Blood pressure 140/93, heart rate 73, respiratory rate 17, and SpO2 91% on room air. -Morning labs reviewed. CBC showing normocytic anemia with hemoglobin stable 11.8. BMP unremarkable with the exception of elevated glucose of 132. CODE STATUS: Full Code DVT prophylaxis: Heparin Anticipated discharge: Clinical course to determine Anticipated discharge place: Home Patient was seen independently by Nurse Pracitioner. This document was prepared using [employer] dictation software. Please allow for errors in furniture assembler and installer, while rare they do occur. I reviewed the documentation as provided by the DON above, who is the original author of this note. I agree with the documented assessment and plan, with the following changes: none Objective - Vital Signs Vital signs: Vital Signs Temp 98.3 F 10/24/22 07:04 Pulse 73 10/24/22 07:04 Resp 17 10/24/22 07:04 BP 140/93 10/24/22 07:04 Pulse Ox 91 L 10/24/22 07:04 FiO2 Intake & Output 10/23/22 10/24/22 10/24/22 18:59 06:59 18:59 Other: # Voids 3 3 - Labs CBC & Chem 7: 10/24/22 06:03 10/24/22 06:03 Labs: Abnormal Lab Results - Last 24 Hours (Table) 10/23/22 10/23/22 10/23/22 Range/Units 05:30 11:07 16:13 POC Glucose (mg/dL) 132 H 175 H (70-110) mg/dL Hemoglobin A1c 7.0 H (<=6.0) % 10/23/22 10/24/22 Range/Units 20:47 06:38 POC Glucose (mg/dL) 116 H 123 H (70-110) mg/dL Hemoglobin A1c (<=6.0) % Microbiology - Last 24 Hours (Table) 10/22/22 07:00 Blood Culture - Preliminary Blood
[2022-10-24 16:56] LABS: Glucose,Whole Blood 119 mg/dL (70-110)
[2022-10-24 19:28] LABS: Glucose,Whole Blood 128 mg/dL (70-110)
[2022-10-24] MEDS: MELATONIN 3 MG TABLET PO PRN (23:41)
[2022-10-25] MEDS: HYDROmorphone 1 MG/ML 1 ML SYRINGE IVP PRN ×7 (02:22→23:51)
[2022-10-25] MEDS: KETOROLAC 15 MG/ML 1 ML VIAL IVP SCH ×4 (02:22→21:12)
[2022-10-25] MEDS: SODIUM CHLORIDE 0.9% 1,000 ML IV SCH ×2 (02:31→13:03)
[2022-10-25 05:45] LABS: Glucose,Whole Blood 126 mg/dL (70-110)
[2022-10-25] MEDS: INSULIN ASPART (NovoLOG) 100 UNIT/ML VIAL SQ SCH ×4 (05:53→21:07)
[2022-10-25] MEDS: LEVOTHYROXINE 100 MCG TAB PO SCH (05:57)
[2022-10-25] MEDS: metroNIDAZOLE-NS PMX 500 MG in SALINE 1 100ML.BAG IVPB SCH ×3 (05:58→21:18)
[2022-10-25] MEDS: lisinopriL 10 MG TAB PO SCH (06:55)
[2022-10-25] MEDS: METOPROLOL SUCCINATE (ER) 50 MG TAB.ER.24H PO SCH (06:55)
[2022-10-25] MEDS: ATORVASTATIN 80 MG TAB PO SCH (07:44)
[2022-10-25] MEDS: HEPARIN SODIUM,PORCINE/PF 5,000 UNIT/0.5 ML SYRINGE SQ SCH ×2 (07:45→16:04)
[2022-10-25] MEDS: PIPERACILLIN-TAZOBACTAM 3.375 GM in SODIUM CHLORIDE 0.9% 100 ML IVPB SCH ×3 (07:45→23:57)
[2022-10-25] MEDS: ALBUTEROL HFA INHALER INHALATION PRN ×2 (08:51→16:43)
--- NOTE | 2022-10-25 10:38 | P.PN ---
Subjective Progress Note Date: 10/25/22 Hospital course: Patient is a very pleasant 57-year-old male with a past medical history of coronary artery disease with previous [place] and stent placement in October 2021, cervical DJD, asthma, hypertension, and hypothyroidism. He initially presented to [facility] emergency room with complaints of abdominal discomfort on 10/21/22. Patient reports that his symptoms started approximately 4-5 days previously with primarily left-sided abdominal discomfort which has been radiating throughout the abdomen. Reports that his symptoms worsened over the past 24 hours and prompted him to come to the emergency room. At [facility], CT abdomen and pelvis was completed which reportedly revealed findings consistent with acute diverticulitis with micro perforation and possible early abscess formation. Patient was transferred to our facility for admission and evaluation by general surgeon. Upon arrival to our facility, labs were completed and reviewed. CBC unremarkable. Coags normal findings. BMP showing mild hyponatremia with sodium 134, hypochloremia with chloride 97, and hypocarbia with bicarb of 21. Glucose 183. Liver enzymes unremarkable. Urinalysis negative for infection. EKG was completed showing sinus tachycardia at 102 bpm with T-wave inversion in inferior lead [address] abnormalities upon personal review and interpretation.. Patient was started on IV fluid hydration along with IV antibiotics Flagyl and Rocephin and admitted under our services with consultation to general surgery. Physical examination:. Patient seen and fully evaluated at bedside this morning. He has been tolerating oral intake with ice chips and popsicles he continues to deny any episodes of nausea or vomiting. Patient reports continued passing of flatus along with multiple episodes of loose bowel movements. He denies having any melena or hematochezia. He reports minimal improvement of pain. General: non toxic, no distress, appears at stated age Derm: warm, dry Head: atraumatic, normocephalic, symmetric Eyes: EOMI, no lid lag, anicteric sclera Mouth: no lip lesion, mucus membranes moist Cardiovascular: S1S2 reg, no murmur, positive posterior tibial pulse bilateral, Lungs: CTA bilateral, no rhonchi, no rales , no accessory muscle use Abdominal: Diffuse Tenderness to palpation worse in the right lower quadrant and left lower quadrant, soft and distended. Ext: no gross muscle atrophy, no edema, no contractures Neuro: CN II-XI grossly intact, no focal neuro deficits Psych: Alert, oriented, appropriate affect Assessment and plan of care: Acute diverticulitis with microperforation and possible abscess formation Hypochloremic Hyponatremia -Continue IV antibiotics with Flagyl 500 mg every 8 hours and general surgeon discontinued Rocephin and started patient on Zosyn 3.375 g every 8 hours -Gen. surgery following, discussed plan of care with general surgery PA stating due to continued pain/discomfort we will continue with only ice chips and popsicles at this time awaiting advancement of diet. -Continue with symptomatic care and pain management. -Continue with IV fluid hydration with 0.9% normal saline at 130 mL's per hour may discontinue once diet is advanced. -Blood culture showing no growth to date Hyperglycemia, hemoglobin A1c 7% Resulting in newly diagnosed type 2 diabetes mellitus. -Continue with glycemic protocol with NovoLog sliding scale. -Will plan to discharge patient home on metformin 500 mg twice a day. -Consult placed to case management for ordering and assistance obtaining of diabetic supplies. Hypertension -Patient blood pressure is uncontrolled and morning BP 181/101. Metoprolol increased to 100 mg daily and lisinopril 10 mg daily. Hyperlipidemia -Continue daily medication regimen with atorvastatin 80 mg daily. Hypothyroidism -Continue daily medication regimen with levothyroxine 100 g daily. Imaging: -No new imaging completed for review. Data Review: -Vital signs reviewed. Blood pressure 181/101, heart rate 61, respiratory rate 18, SpO2 98% on room air and temp 98.4F. -Morning labs reviewed. CBC showing normocytic anemia with hemoglobin stable 11.8. BMP unremarkable with the exception of elevated glucose of 132. CODE STATUS: Full Code DVT prophylaxis: Heparin Anticipated discharge: Clinical course to determine Anticipated discharge place: Home Patient was seen independently by Nurse Pracitioner. This document was prepared using [employer] dictation software. Please allow for errors in cutting supervisor, while rare they do occur. Trace Butcher NP rendered care for this patient independently, reviewed the findings and plan as documented in the note above. I did not physically speak with or examine the patient on this date. Objective - Vital Signs Vital signs: Vital Signs Temp 98.4 F 10/25/22 07:06 Pulse 61 10/25/22 07:06 Resp 18 10/25/22 07:06 BP 181/101 10/25/22 07:06 Pulse Ox 98 06/27/23 07:06 FiO2 Intake & Output 10/24/22 10/25/22 10/25/22 18:59 06:59 18:59 Intake Total 1400 Balance 1400 Weight 142.428 kg Intake: Intake, IV Titration 1400 Amount Piperacillin-Tazobactam 3 100 .375 gm In Sodium Chloride 0.9% 100 ml @ 25 mls/hr IVPB Q8HR [facility] Rx# :[id number] Sodium Chloride 0.9% 1, 1200 000 ml @ 130 mls/hr IV . Q7H42M [facility] Rx#:[id number] metroNIDAZOLE-NS PMX 500 100 mg In Saline 1 100ml.bag @ 100 mls/hr IVPB Q8H [facility] Rx#:[id number] Other: Voiding Method Toilet Toilet # Voids 3 - Labs CBC & Chem 7: 10/26/22 05:01 10/26/22 05:01 Labs: Abnormal Lab Results - Last 24 Hours (Table) 10/24/22 10/24/22 10/24/22 Range/Units 06:03 06:03 11:46 RBC 4.09 L (4.40-5.60) X 10*6/uL Hgb 11.8 L (12.0-15.0) d/dL Hct 36.8 L (39.6-50.0) % Glucose 132 H (70-110) mg/dL POC Glucose (mg/dL) 157 H (70-110) mg/dL Calcium 7.6 L (8.7-10.3) mg/dL 10/24/22 10/24/22 10/25/22 Range/Units 16:55 19:28 05:43 RBC (4.40-5.60) X 10*6/uL Hgb (12.0-15.0) d/dL Hct (39.6-50.0) % Glucose (70-110) mg/dL POC Glucose (mg/dL) 119 H 128 H 126 H (70-110) mg/dL Calcium (8.7-10.3) mg/dL Microbiology - Last 24 Hours (Table) 10/22/22 07:00 Blood Culture - Preliminary Blood
[2022-10-25 11:40] LABS: Glucose,Whole Blood 122 mg/dL (70-110)
--- NOTE | 2022-10-25 12:09 | P.PN ---
Subjective Progress Note Date: 10/25/22 CHIEF COMPLAINT: Ruptured diverticulitis HISTORY OF PRESENT ILLNESS: Patient admitted to the hospital with acute diverticulitis with microperforation and abscess. He is on IV antibiotics. Patient reports his pain is decreasing. Pain is 3 out of 10. He is still requiring the IV pain medication. His pain is still worse with movement. He denies any nausea or vomiting. He is having flatus and bowel movements. No blood in the stools. He is tolerating the ice chips. Afebrile. Blood pressure elevated. WBC 8.32 yesterday PHYSICAL EXAM: VITAL SIGNS: Reviewed GENERAL: Well-developed in no acute distress. HEENT: No sclera icterus. Extraocular movements grossly intact. Moist buccal mucosa. Head is atraumatic, normocephalic. Hears conversational speech. No nasal drainage. NECK: Supple without lymphadenopathy. CHEST: Non-labored respirations and equal bilateral excursions. CARDIOVASCULAR: Palpable 2+ radial pulses. ABDOMEN: Soft. Nondistended. Tenderness with palpation in the suprapubic, left lower quadrant MUSCULOSKELETAL: No clubbing or cyanosis. NEUROLOGIC: No focal or lateralizing signs. Cranial nerves II through XII grossly intact. PSYCH: Appropriate affect. Alert and oriented to person, place and time. SKIN: Well perfused. Good skin turgor. ASSESSMENT: 1. Acute diverticulitis with microperforation and possible early abscess PLAN: -Keep patient nothing by mouth except for ice and popsicles -Continue IV antibiotics -Continue pain management -Continue to monitor Physician Mapper note has been reviewed by physician. Signing provider agrees with the documented findings, assessment, and plan of care. Objective - Vital Signs Vital signs: Vital Signs Temp 98.4 F 10/25/22 07:06 Pulse 61 10/25/22 07:06 Resp 18 10/25/22 07:06 BP 181/101 10/25/22 07:06 Pulse Ox 98 10/25/22 07:06 FiO2 Intake & Output 10/24/22 10/25/22 10/25/22 18:59 06:59 18:59 Intake Total 1400 Balance 1400 Weight 142.428 kg Intake: Intake, IV Titration 1400 Amount Piperacillin-Tazobactam 3 100 .375 gm In Sodium Chloride 0.9% 100 ml @ 25 mls/hr IVPB Q8HR [facility] Rx# :[id number] Sodium Chloride 0.9% 1, 1200 000 ml @ 130 mls/hr IV . Q7H42M [facility] Rx#:[id number] metroNIDAZOLE-NS PMX 500 100 mg In Saline 1 100ml.bag @ 100 mls/hr IVPB Q8H [facility] Rx#:[id number] Other: Voiding Method Toilet Toilet # Voids 3 - Labs CBC & Chem 7: 10/24/22 06:03 10/24/22 06:03 Labs: Abnormal Lab Results - Last 24 Hours (Table) 10/24/22 10/24/22 10/24/22 Range/Units 11:46 16:55 19:28 POC Glucose (mg/dL) 157 H 119 H 128 H (70-110) mg/dL 10/25/22 Range/Units 05:43 POC Glucose (mg/dL) 126 H (70-110) mg/dL Microbiology - Last 24 Hours (Table) 10/22/22 07:00 Blood Culture - Preliminary Blood
[2022-10-25] MEDS ORDERED: METOPROLOL SUCCINATE (ER) 100 MG TAB.ER.24H PO STA (15:28)
[2022-10-25 16:23] LABS: Glucose,Whole Blood 119 mg/dL (70-110)
[2022-10-25 20:31] LABS: Glucose,Whole Blood 122 mg/dL (70-110)
[2022-10-26] MEDS: HEPARIN SODIUM,PORCINE/PF 5,000 UNIT/0.5 ML SYRINGE SQ SCH ×3 (00:04→16:11)
[2022-10-26] MEDS: MELATONIN 3 MG TABLET PO PRN (01:32)
[2022-10-26] MEDS: KETOROLAC 15 MG/ML 1 ML VIAL IVP SCH ×4 (03:30→20:44)
[2022-10-26] MEDS: SODIUM CHLORIDE 0.9% 1,000 ML IV SCH ×4 (03:30→20:55)
[2022-10-26] MEDS: HYDROmorphone 1 MG/ML 1 ML SYRINGE IVP PRN ×6 (03:31→20:44)
[2022-10-26] MEDS: ALBUTEROL HFA INHALER INHALATION PRN ×2 (05:13→13:16)
[2022-10-26 06:11] LABS: Glucose,Whole Blood 125 mg/dL (70-110)
[2022-10-26] MEDS: INSULIN ASPART (NovoLOG) 100 UNIT/ML VIAL SQ SCH ×4 (06:30→20:51)
[2022-10-26] MEDS: metroNIDAZOLE-NS PMX 500 MG in SALINE 1 100ML.BAG IVPB SCH ×3 (06:39→21:45)
[2022-10-26] MEDS: LEVOTHYROXINE 100 MCG TAB PO SCH (06:39)
[2022-10-26] MEDS: METOPROLOL SUCCINATE (ER) 50 MG TAB.ER.24H PO SCH (06:46)
[2022-10-26] MEDS: lisinopriL 10 MG TAB PO SCH (06:46)
[2022-10-26 08:43] LABS: HGB 11.8 d/dL (12.0-15.0); MCH 27.7 pg (27.0-32.0); MCHC 31.9 d/dL (32.0-37.0); MCV 86.9 FL (80.0-97.0); Mean Platelet Volume 9.9 FL (9.5-12.2); NRBC Per 100 WBC 0 X 10*3/uL (0.00-0.01); Platelet Count 301 X 10*3/uL (140-440); RBC 4.26 X 10*6/uL (4.40-5.60); RDW 14.5 % (11.5-14.5); WBC 8.53 X 10*3/uL (4.50-10.00)
[2022-10-26 08:49] LABS: ALT 38 U/L (10-49); AST 50 U/L (14-35); Albumin 2.8 d/dL (3.8-4.9); Albumin/Globulin Ratio 1.04 Ratio (1.60-3.17); Alkaline Phosphatase 59 U/L (41-126); BUN/Creat Ratio 16.88 Ratio (12.00-20.00); Blood Urea Nitrogen 13.5 mg/dL (9.0-27.0); Calcium 7.6 mg/dL (8.7-10.3); Carbon Dioxide 23.7 mmol/L (21.6-31.8); Chloride 103 mmol/L (96-109); Globulin 2.7 d/dL (1.6-3.3); Glucose 112 mg/dL (70-110); Sodium 140 mmol/L (135-145); Total Bilirubin 0.2 mg/dL (0.3-1.2); Total Protein 5.5 d/dL (6.2-8.2)
[2022-10-26] MEDS: ATORVASTATIN 80 MG TAB PO SCH (09:06)
[2022-10-26] MEDS: lisinopriL 20 MG TAB PO SCH (09:06)
[2022-10-26] MEDS: amLODIPine 10 MG TAB PO SCH (09:06)
[2022-10-26] MEDS: PIPERACILLIN-TAZOBACTAM 3.375 GM in SODIUM CHLORIDE 0.9% 100 ML IVPB SCH ×2 (09:07→16:11)
[2022-10-26 10:31] LABS: Acanthocytes 2+; Basophils # (A) 0.08 X 10*3/uL (0.00-0.10); Basophils % (A) 0.9 %; Eosinophils # (A) 0.16 X 10*3/uL (0.04-0.35); Eosinophils % (A) 1.9 %; Lymphocytes # (A) 2.03 X 10*3/uL (0.90-5.00); Lymphocytes % (A) 23.8 %; Monocytes # (A) 0.87 X 10*3/uL (0.20-1.00); Monocytes % (A) 10.2 %; Neutrophils # (A) 5.25 X 10*3/uL (1.80-7.70); Neutrophils % (A) 61.6 %
[2022-10-26 11:25] LABS: Glucose,Whole Blood 116 mg/dL (70-110)
[2022-10-26] MEDS: IOPAMIDOL CONTRAST (ORAL USE) VIAL PO PRN ×2 (12:06→12:54)
--- NOTE | 2022-10-26 13:59 | CT ---
EXAMINATION TYPE: CT abdomen pelvis wo con CT DLP: 2537.2 mGycm, Automated exposure control for dose reduction was used. DATE OF EXAM: 10/26/2022 1:39 PM COMPARISON: CT abdomen pelvis most recent from 10/21/2022. CLINICAL INDICATION:Male, 57 years old with history of abdominal pain, perforated diverticulitis; Abd ominal pain, perforated diverticulum TECHNIQUE: Standard CT of the abdomen and pelvis following the administration of oral contrast. Cor onal and sagittal reformats were performed. FINDINGS: Evaluation is limited due to lack of IV contrast. LOWER CHEST: Left lower lobe linear scarring and/or atelectasis. ABDOMEN LIVER: Diffusely hypoattenuating parenchyma. Focal fatty sparing around the gallbladder. GALLBLADDER AND BILE DUCTS: Unremarkable. PANCREAS: Unremarkable noncontrast appearance. SPLEEN: Unremarkable noncontrast appearance. ADRENAL GLANDS: Unremarkable noncontrast appearance. KIDNEYS AND URETERS: No evidence of hydronephrosis or renal calculus. Nonspecific bilateral perinephr ic fat stranding . PELVIS BLADDER: Unremarkable REPRODUCTIVE: Unremarkable. ABDOMEN & PELVIS STOMACH AND BOWEL: Stomach and duodenum are unremarkable. Sigmoid diverticula with decreased surround ing inflammatory change from prior examination. There is redemonstration of a gas and fluid collectio n superior to the sigmoid colon measuring grossly 7.5 x 4.2 cm this demonstrates a slightly decreased fluid component with increased gaseous component. There are additional similar foci of gas tracking superiorly. Surrounding inflammatory changes is mildly decreased. The appendix is within normal limit s. Enteric contrast reaches the descending colon. No evidence of bowel obstruction. PERITONEUM: No evidence of free fluid. VASCULATURE: Mild atherosclerotic calcifications are present throughout the abdominal aorta and its b ranches. No evidence of aortic aneurysm. MUSCULOSKELETAL: No acute osseous abnormalities. Mild disc degeneration changes are present throughou t the thoracolumbar spine. LYMPH NODES: No gross evidence for lymphadenopathy. SOFT TISSUE/ABDOMINAL WALL: Few foci of stranding and gas with anterior abdominal wall likely from me dication injection. IMPRESSION: 1. Redemonstration of perforated sigmoid diverticulitis with adjacent gas and air-fluid collection m easuring up to 7.5 cm just superior to this region. The fluid component has mildly decreased in size with increased air component. No thick wall is identified. Findings again concerning for developing a bscess. There is similar foci of gas and stranding extending superiorly to the collection. 2. Hepatic steatosis.
--- NOTE | 2022-10-26 14:40 | P.PN ---
Subjective Progress Note Date: 10/26/22 Hospital course: Patient is a very pleasant 57-year-old male with a past medical history of coronary artery disease with previous [place] and stent placement in October 2021, cervical DJD, asthma, hypertension, and hypothyroidism. He initially presented to [facility] emergency room with complaints of abdominal discomfort on 10/21/22. Patient reports that his symptoms started approximately 4-5 days previously with primarily left-sided abdominal discomfort which has been radiating throughout the abdomen. Reports that his symptoms worsened over the past 24 hours and prompted him to come to the emergency room. At [facility], CT abdomen and pelvis was completed which reportedly revealed findings consistent with acute diverticulitis with micro perforation and possible early abscess formation. Patient was transferred to our facility for admission and evaluation by general surgeon. Upon arrival to our facility, labs were completed and reviewed. CBC unremarkable. Coags normal findings. BMP showing mild hyponatremia with sodium 134, hypochloremia with chloride 97, and hypocarbia with bicarb of 21. Glucose 183. Liver enzymes unremarkable. Urinalysis negative for infection. EKG was completed showing sinus tachycardia at 102 bpm with T-wave inversion in inferior lead [address] abnormalities upon personal review and interpretation.. Patient was started on IV fluid hydration along with IV antibiotics Flagyl and Rocephin and admitted under our services with consultation to general surgery. Physical examination:. Patient seen and fully evaluated at bedside this morning. He has been tolerating oral intake with ice chips and popsicles he continues to deny any episodes of nausea or vomiting. Patient reports continued passing of flatus along with multiple episodes of loose bowel movements. He denies having any melena or hematochezia. He continues to report minimal improvement of pain. General: non toxic, no distress, appears at stated age Derm: warm, dry Head: atraumatic, normocephalic, symmetric Eyes: EOMI, no lid lag, anicteric sclera Mouth: no lip lesion, mucus membranes moist Cardiovascular: S1S2 reg, no murmur, positive posterior tibial pulse bilateral, Lungs: CTA bilateral, no rhonchi, no rales , no accessory muscle use Abdominal: Diffuse Tenderness to palpation worse in the right lower quadrant and left lower quadrant, soft and distended. Ext: no gross muscle atrophy, no edema, no contractures Neuro: CN II-XI grossly intact, no focal neuro deficits Psych: Alert, oriented, appropriate affect Assessment and plan of care: Acute diverticulitis with microperforation and possible abscess formation Hypochloremic Hyponatremia -Continue IV antibiotics with Flagyl 500 mg every 8 hours and general surgeon discontinued Rocephin and started patient on Zosyn 3.375 g every 8 hours -Gen. surgery following, discussed plan of care with general surgery PA stating due to continued pain/discomfort we will continue with only ice chips and popsicles at this time awaiting advancement of diet. -Continue with symptomatic care and pain management. -Continue with IV fluid hydration with 0.9% normal saline at 130 mL's per hour may discontinue once diet is advanced. -Blood culture showing no growth to date Hyperglycemia, hemoglobin A1c 7% Resulting in newly diagnosed type 2 diabetes mellitus. -Continue with glycemic protocol with NovoLog sliding scale. -Will plan to discharge patient home on metformin 500 mg twice a day. -Consult placed to case management for ordering and assistance obtaining of diabetic supplies. Hypertensive urgency -Patient blood pressure is uncontrolled and morning BP 182/114 with heart rate of 71 Metoprolol increased to 100 mg daily and lisinopril increased to 20 mg daily and amlodipine added 10 mg daily. Hyperlipidemia -Continue daily medication regimen with atorvastatin 80 mg daily. Hypothyroidism -Continue daily medication regimen with levothyroxine 100 g daily. Imaging: -No new imaging completed for review. Data Review: -Vital signs reviewed. Blood pressure 182/114, heart rate 71, respiratory rate 19, SpO2 is 94% on room air, and temp 98.7F. -Morning labs reviewed. CBC showing normocytic anemia with hemoglobin stable 11.8. BMP unremarkable with the exception of elevated glucose of 112. CODE STATUS: Full Code DVT prophylaxis: Heparin Anticipated discharge: Clinical course to determine Anticipated discharge place: Home Patient was seen independently by Nurse Pracitioner. This document was prepared using [employer] dictation software. Please allow for errors in window caser, while rare they do occur. I reviewed the documentation as provided by the DON above, who is the original author of this note. I agree with the documented assessment and plan, with the following changes: none Objective - Vital Signs Vital signs: Vital Signs Temp 98.7 F 10/26/22 06:45 Pulse 71 10/26/22 06:45 Resp 19 10/26/22 06:45 BP 187/100 10/26/22 07:36 Pulse Ox 94 L 10/26/22 06:45 FiO2 Intake & Output 10/25/22 10/26/22 10/26/22 18:59 06:59 18:59 Output Total 1 Balance -1 Output: Urine/Stool Mix 1 Other: # Voids 3 2 - Labs CBC & Chem 7: 10/28/22 05:59 10/28/22 05:59 Labs: Abnormal Lab Results - Last 24 Hours (Table) 10/25/22 10/25/22 10/25/22 Range/Units 11:38 16:21 20:29 POC Glucose (mg/dL) 122 H 119 H 122 H (70-110) mg/dL 10/26/22 Range/Units 06:09 POC Glucose (mg/dL) 125 H (70-110) mg/dL Microbiology - Last 24 Hours (Table) 10/22/22 07:00 Blood Culture - Preliminary Blood
--- NOTE | 2022-10-26 15:59 | P.PN ---
Subjective Progress Note Date: 10/26/22 CHIEF COMPLAINT: Ruptured diverticulitis HISTORY OF PRESENT ILLNESS: Patient admitted to the hospital with acute diverticulitis with microperforation and abscess. He is on IV antibiotics. Patient reports his pain is decreasing. He rates his pain 2-3 out of 10. Still having more pain with movement. He is having bowel movements and flatus. Occasional nausea no vomiting. Blood pressures have been elevated. BP 185/115. Medicine service has been adjusting blood pressure medication. Afebrile. WBC is 8.53 hgb 11.8 PHYSICAL EXAM: VITAL SIGNS: Reviewed GENERAL: Well-developed in no acute distress. HEENT: No sclera icterus. Extraocular movements grossly intact. Moist buccal mucosa. Head is atraumatic, normocephalic. Hears conversational speech. No nasal drainage. NECK: Supple without lymphadenopathy. CHEST: Non-labored respirations and equal bilateral excursions. CARDIOVASCULAR: Palpable 2+ radial pulses. ABDOMEN: Soft. Nondistended. Tenderness with palpation in the suprapubic, left lower quadrant and right lower quadrant MUSCULOSKELETAL: No clubbing or cyanosis. NEUROLOGIC: No focal or lateralizing signs. Cranial nerves II through XII grossly intact. PSYCH: Appropriate affect. Alert and oriented to person, place and time. SKIN: Well perfused. Good skin turgor. ASSESSMENT: 1. Acute diverticulitis with microperforation and possible early abscess PLAN: -Computed tomography scan abdomen and pelvis with oral contrast has been ordered for follow-up on patient's diverticulitis with microperforation and abscess -Keep patient nothing by mouth except for ice and popsicles -Continue IV antibiotics -Continue pain management -Continue to monitor Physician Concept Artist note has been reviewed by physician. Signing provider agrees with the documented findings, assessment, and plan of care. Objective - Vital Signs Vital signs: Vital Signs Temp 98.7 F 10/26/22 06:45 Pulse 71 10/26/22 06:45 Resp 19 10/26/22 06:45 BP 187/100 10/26/22 07:36 Pulse Ox 94 L 10/26/22 06:45 FiO2 Intake & Output 10/25/22 10/26/22 10/26/22 18:59 06:59 18:59 Output Total 1 Balance -1 Output: Urine/Stool Mix 1 Other: # Voids 3 2 - Labs CBC & Chem 7: 10/26/22 05:01 10/26/22 05:01 Labs: Abnormal Lab Results - Last 24 Hours (Table) 10/25/22 10/25/22 10/26/22 Range/Units 16:21 20:29 05:01 RBC 4.26 L (4.40-5.60) X 10*6/uL Hgb 11.8 L (12.0-15.0) d/dL Hct 37.0 L (39.6-50.0) % MCHC 31.9 L (32.0-37.0) d/dL Acanthocytes (Spur) 2+ A Anion Gap (4.00-12.00) mmol/L Glucose (70-110) mg/dL POC Glucose (mg/dL) 119 H 122 H (70-110) mg/dL Calcium (8.7-10.3) mg/dL Total Bilirubin (0.3-1.2) mg/dL AST (14-35) U/L Total Protein (6.2-8.2) d/dL Albumin (3.8-4.9) d/dL Albumin/Globulin Ratio (1.60-3.17) Ratio 10/26/22 10/26/22 10/26/22 Range/Units 05:01 06:09 11:23 RBC (4.40-5.60) X 10*6/uL Hgb (12.0-15.0) d/dL Hct (39.6-50.0) % MCHC (32.0-37.0) d/dL Acanthocytes (Spur) Anion Gap 13.30 H (4.00-12.00) mmol/L Glucose 112 H (70-110) mg/dL POC Glucose (mg/dL) 125 H 116 H (70-110) mg/dL Calcium 7.6 L (8.7-10.3) mg/dL Total Bilirubin 0.2 L (0.3-1.2) mg/dL AST 50 H (14-35) U/L Total Protein 5.5 L (6.2-8.2) d/dL Albumin 2.8 L (3.8-4.9) d/dL Albumin/Globulin Ratio 1.04 L (1.60-3.17) Ratio Microbiology - Last 24 Hours (Table) 10/22/22 07:00 Blood Culture - Preliminary Blood
[2022-10-26 16:33] LABS: Glucose,Whole Blood 115 mg/dL (70-110)
[2022-10-26 20:36] LABS: Glucose,Whole Blood 113 mg/dL (70-110)
[2022-10-27] MEDS: MELATONIN 3 MG TABLET PO PRN (00:10)
[2022-10-27] MEDS: HYDROmorphone 1 MG/ML 1 ML SYRINGE IVP PRN ×7 (00:10→22:10)
[2022-10-27] MEDS: HEPARIN SODIUM,PORCINE/PF 5,000 UNIT/0.5 ML SYRINGE SQ SCH ×3 (00:10→15:52)
[2022-10-27] MEDS: PIPERACILLIN-TAZOBACTAM 3.375 GM in SODIUM CHLORIDE 0.9% 100 ML IVPB SCH ×3 (00:10→15:54)
[2022-10-27] MEDS: KETOROLAC 15 MG/ML 1 ML VIAL IVP SCH ×4 (03:25→20:44)
[2022-10-27 05:44] LABS: Glucose,Whole Blood 99 mg/dL (70-110)
[2022-10-27] MEDS: metroNIDAZOLE-NS PMX 500 MG in SALINE 1 100ML.BAG IVPB SCH ×3 (05:54→22:09)
[2022-10-27] MEDS: SODIUM CHLORIDE 0.9% 1,000 ML IV SCH ×3 (05:55→17:03)
[2022-10-27] MEDS: LEVOTHYROXINE 100 MCG TAB PO SCH (05:55)
[2022-10-27] MEDS: INSULIN ASPART (NovoLOG) 100 UNIT/ML VIAL SQ SCH ×4 (06:47→20:40)
[2022-10-27] MEDS: lisinopriL 20 MG TAB PO SCH (07:37)
[2022-10-27] MEDS: amLODIPine 10 MG TAB PO SCH (07:37)
[2022-10-27] MEDS: METOPROLOL SUCCINATE (ER) 50 MG TAB.ER.24H PO SCH (07:37)
[2022-10-27] MEDS: ATORVASTATIN 80 MG TAB PO SCH (07:37)
[2022-10-27] MEDS: ALBUTEROL HFA INHALER INHALATION PRN ×3 (09:14→16:43)
--- NOTE | 2022-10-27 10:15 | P.PN ---
Subjective Progress Note Date: 10/27/22 Hospital course: Patient is a very pleasant 57-year-old male with a past medical history of coronary artery disease with previous SC and stent placement in October 2021, cervical DJD, asthma, hypertension, and hypothyroidism. He initially presented to [facility] emergency room with complaints of abdominal discomfort on 10/21/22. Patient reports that his symptoms started approximately 4-5 days previously with primarily left-sided abdominal discomfort which has been radiating throughout the abdomen. Reports that his symptoms worsened over the past 24 hours and prompted him to come to the emergency room. At [facility], CT abdomen and pelvis was completed which reportedly revealed findings consistent with acute diverticulitis with micro perforation and possible early abscess formation. Patient was transferred to our facility for admission and evaluation by general surgeon. Upon arrival to our facility, labs were completed and reviewed. CBC unremarkable. Coags normal findings. BMP showing mild hyponatremia with sodium 134, hypochloremia with chloride 97, and hypocarbia with bicarb of 21. Glucose 183. Liver enzymes unremarkable. Urinalysis negative for infection. EKG was completed showing sinus tachycardia at 102 bpm with T-wave inversion in inferior lead [address] abnormalities upon personal review and interpretation.. Patient was started on IV fluid hydration along with IV antibiotics Flagyl and Rocephin and admitted under our services with consultation to general surgery. Physical examination:. Patient seen and fully evaluated at bedside this morning. He has been tolerating oral intake with ice chips and popsicles he continues to deny any episodes of nausea or vomiting. Patient reports having continued pain in his right lower quadrant. CT reviewed showing concerns of developing abscess with 3 demonstrated perforation of sigmoid diverticulitis. General: non toxic, no distress, appears at stated age Derm: warm, dry Head: atraumatic, normocephalic, symmetric Eyes: EOMI, no lid lag, anicteric sclera Mouth: no lip lesion, mucus membranes moist Cardiovascular: S1S2 reg, no murmur, positive posterior tibial pulse bilateral, Lungs: CTA bilateral, no rhonchi, no rales , no accessory muscle use Abdominal: Diffuse Tenderness to palpation worse in the right lower quadrant and left lower quadrant, soft and distended. Ext: no gross muscle atrophy, no edema, no contractures Neuro: CN II-XI grossly intact, no focal neuro deficits Psych: Alert, oriented, appropriate affect Assessment and plan of care: Acute diverticulitis with microperforation and concerns of abscess formation -Continue IV antibiotics with Flagyl 500 mg every 8 hours and general surgeon discontinued Rocephin and started patient on Zosyn 3.375 g every 8 hours -Gen. surgery following, discussed plan of care with general surgery PA patient placed on nothing by mouth status with plans for likely surgery tomorrow. -Continue with symptomatic care and pain management. -Continue with IV fluid hydration with 0.9% normal saline at 130 mL's per hour may discontinue once diet is advanced. -Blood culture showing no growth to date Hyperglycemia, hemoglobin A1c 7% Resulting in newly diagnosed type 2 diabetes mellitus. -Continue with glycemic protocol with NovoLog sliding scale. -Will plan to discharge patient home on metformin 500 mg twice a day. -Consult placed to case management for ordering and assistance obtaining of diabetic supplies. Hypertensive urgency -Patient blood pressure is uncontrolled and morning BP 182/99 with heart rate of 70 Continue Metoprolol 100 mg daily and lisinopril increased to 40 mg daily and amlodipine added 10 mg daily. Hyperlipidemia -Continue daily medication regimen with atorvastatin 80 mg daily. Hypothyroidism -Continue daily medication regimen with levothyroxine 100 g daily. Hypochloremic Hyponatremia, resolved Imaging: -Reviewed CT results showing redemonstration of perforated sigmoid divert iculitis with adjacent gas and air fluid collection measuring up to 7.5 cm just superior to this region a fluid component concerning for developing abscess with similar foci of gas stranding extending superiorly to the collection. Data Review: -Vital signs reviewed. Blood pressure 182/99, heart rate 70, respiratory rate 18, SpO2 93% on room air. Temp 97.6F. -Morning labs reviewed. CBC unremarkable with WBC count of 8.3, hemoglobin 13.3, and platelet count of 317. CODE STATUS: Full Code DVT prophylaxis: Heparin Anticipated discharge: Clinical course to determine Anticipated discharge place: Home Patient was seen independently by Nurse Pracitioner. This document was prepared using [employer] dictation software. Please allow for errors in chemical compounder, while rare they do occur. Trace Butcher NP rendered care for this patient independently, reviewed the findings and plan as documented in the note above. I did not physically speak with or examine the patient on this date. Objective - Vital Signs Vital signs: Vital Signs Temp 97.6 F 06/29/23 07:00 Pulse 70 10/27/22 07:00 Resp 18 10/27/22 07:00 BP 182/99 10/27/22 07:00 Pulse Ox 93 L 10/27/22 07:00 FiO2 Intake & Output 10/26/22 10/27/22 10/27/22 18:59 06:59 18:59 Other: # Voids 3 2 # Bowel Movements 1 - Labs CBC & Chem 7: 10/27/22 11:31 10/26/22 05:01 Labs: Abnormal Lab Results - Last 24 Hours (Table) 10/26/22 10/26/22 10/26/22 Range/Units 05:01 11:23 16:31 Acanthocytes (Spur) 2+ A POC Glucose (mg/dL) 116 H 115 H (70-110) mg/dL 10/26/22 Range/Units 20:34 Acanthocytes (Spur) POC Glucose (mg/dL) 113 H (70-110) mg/dL
--- NOTE | 2022-10-27 11:25 | P.PN ---
Subjective Progress Note Date: 10/27/22 CHIEF COMPLAINT: Ruptured diverticulitis HISTORY OF PRESENT ILLNESS: Patient admitted to the hospital with acute diverticulitis with microperforation and abscess. He is on IV antibiotics. Patient had increase in abdominal pain after taking the oral contrast with CAT scan yesterday. He was ports that the pain with movement is a little less today. He is still rating his pain about 2-3 out of 10. Pain is across the lower abdomen mostly in the right lower quadrant. He denies any nausea or vomiting. Computed tomography scan results demonstrated perforated sigmoid diverticulitis with adjacent gas and air fluid collection measuring up to 7.5 cm just appeared to region. The fluid component has mildly decreased in size with increased air component. No thick wall is identified. Findings again is concerning for developing abscess. There is similar foci of gas and stranding extending superiorly to the collection. Hepatic steatosis. Afebrile. Blood pressure remains elevated. It appears related to patient's pain. After pain medication nursing staff reports that blood pressure does improve. CBC pending today PHYSICAL EXAM: VITAL SIGNS: Reviewed GENERAL: Well-developed in no acute distress. HEENT: No sclera icterus. Extraocular movements grossly intact. Moist buccal mucosa. Head is atraumatic, normocephalic. Hears conversational speech. No nasal drainage. NECK: Supple without lymphadenopathy. CHEST: Non-labored respirations and equal bilateral excursions. CARDIOVASCULAR: Palpable 2+ radial pulses. ABDOMEN: Soft. Nondistended. Tenderness with palpation in the suprapubic, left lower quadrant and right lower quadrant MUSCULOSKELETAL: No clubbing or cyanosis. NEUROLOGIC: No focal or lateralizing signs. Cranial nerves II through XII grossly intact. PSYCH: Appropriate affect. Alert and oriented to person, place and time. SKIN: Well perfused. Good skin turgor. ASSESSMENT: 1. Acute diverticulitis with microperforation and possible early abscess PLAN: -Keep patient nothing by mouth except for ice and popsicles -Continue IV antibiotics -Continue pain management -Continue to monitor closely -Possible surgical intervention if symptoms worsen Physician Regional Ehs Manager note has been reviewed by physician. Signing provider agrees with the documented findings, assessment, and plan of care. Objective - Vital Signs Vital signs: Vital Signs Temp 97.6 F 10/27/22 07:00 Pulse 70 10/27/22 07:00 Resp 18 10/27/22 07:00 BP 182/99 10/27/22 07:00 Pulse Ox 93 L 10/27/22 09:15 FiO2 Intake & Output 10/26/22 10/27/22 10/27/22 18:59 06:59 18:59 Other: # Voids 3 2 # Bowel Movements 1 - Labs CBC & Chem 7: 10/26/22 05:01 10/26/22 05:01 Labs: Abnormal Lab Results - Last 24 Hours (Table) 10/26/22 10/26/22 10/26/22 Range/Units 11:23 16:31 20:34 POC Glucose (mg/dL) 116 H 115 H 113 H (70-110) mg/dL
[2022-10-27 11:43] LABS: Basophils # (A) 0.1 k/uL (0-0.2); Basophils % (A) 1 %; Eosinophils # (A) 0.2 k/uL (0-0.7); Eosinophils % (A) 2 %; HCT 40.3 % (39.0-53.0); HGB 13.3 gm/dL (13.0-17.5); Lymphocytes # (A) 1.5 k/uL (1.0-4.8); Lymphocytes % (A) 18 %; MCH 28.7 pg (25.0-35.0); MCHC 33.1 g/dL (31.0-37.0); MCV 86.7 fL (80.0-100.0); Mean Platelet Volume 7.9; Monocytes # (A) 0.7 k/uL (0-1.0); Monocytes % (A) 9 %; Neutrophils # (A) 5.5 k/uL (1.3-7.7); Neutrophils % (A) 66 %; Platelet Count 317 k/uL (150-450); RBC 4.65 m/uL (4.30-5.90); RDW 14.2 % (11.5-15.5); WBC 8.3 k/uL (3.8-10.6)
[2022-10-27 12:14] LABS: Glucose,Whole Blood 104 mg/dL (70-110)
[2022-10-27] MEDS ORDERED: lisinopriL 20 MG TAB PO STA (15:24)
[2022-10-27 17:04] LABS: Glucose,Whole Blood 114 mg/dL (70-110)
[2022-10-27 20:08] LABS: Glucose,Whole Blood 116 mg/dL (70-110)
[2022-10-28] MEDS: HEPARIN SODIUM,PORCINE/PF 5,000 UNIT/0.5 ML SYRINGE SQ SCH ×3 (00:25→16:00)
[2022-10-28] MEDS: MORPHINE SULFATE 4 MG/ML SYRINGE IVP PRN (00:25)
[2022-10-28] MEDS: cloNIDine HCL 0.2 MG TAB PO PRN ×2 (00:26→21:16)
[2022-10-28] MEDS: PIPERACILLIN-TAZOBACTAM 3.375 GM in SODIUM CHLORIDE 0.9% 100 ML IVPB SCH ×3 (00:26→15:59)
[2022-10-28] MEDS: KETOROLAC 15 MG/ML 1 ML VIAL IVP SCH ×3 (01:55→14:55)
[2022-10-28] MEDS: HYDROmorphone 1 MG/ML 1 ML SYRINGE IVP PRN ×6 (03:31→18:33)
[2022-10-28 06:15] LABS: Glucose,Whole Blood 106 mg/dL (70-110)
[2022-10-28] MEDS: LEVOTHYROXINE 100 MCG TAB PO SCH (06:40)
[2022-10-28] MEDS: metroNIDAZOLE-NS PMX 500 MG in SALINE 1 100ML.BAG IVPB SCH ×2 (06:41→14:55)
[2022-10-28] MEDS: SODIUM CHLORIDE 0.9% 1,000 ML IV SCH (06:50)
[2022-10-28] MEDS: INSULIN ASPART (NovoLOG) 100 UNIT/ML VIAL SQ SCH ×3 (06:50→16:52)
[2022-10-28] MEDS: amLODIPine 10 MG TAB PO SCH (07:37)
[2022-10-28] MEDS: METOPROLOL SUCCINATE (ER) 50 MG TAB.ER.24H PO SCH (07:37)
[2022-10-28] MEDS: lisinopriL 20 MG TAB PO SCH (07:37)
[2022-10-28] MEDS: ATORVASTATIN 80 MG TAB PO SCH (07:37)
[2022-10-28 11:16] LABS: HCT 37.9 % (39.6-50.0); HGB 12.7 d/dL (12.0-15.0); MCH 28.4 pg (27.0-32.0); MCHC 33.5 d/dL (32.0-37.0); MCV 84.8 FL (80.0-97.0); Mean Platelet Volume 9.4 FL (9.5-12.2); NRBC Per 100 WBC 0 X 10*3/uL (0.00-0.01); Platelet Count 327 X 10*3/uL (140-440); RBC 4.47 X 10*6/uL (4.40-5.60); RDW 14.3 % (11.5-14.5); WBC 10.35 X 10*3/uL (4.50-10.00)
[2022-10-28 11:18] LABS: ALT 40 U/L (10-49); AST 42 U/L (14-35); Albumin 2.8 d/dL (3.8-4.9); Alkaline Phosphatase 56 U/L (41-126); BUN/Creat Ratio 12.43 Ratio (12.00-20.00); Blood Urea Nitrogen 8.7 mg/dL (9.0-27.0); Calcium 7.9 mg/dL (8.7-10.3); Carbon Dioxide 24.5 mmol/L (21.6-31.8); Chloride 100 mmol/L (96-109); Globulin 2.8 d/dL (1.6-3.3); Glucose 93 mg/dL (70-110); Magnesium 1.9 mg/dL (1.5-2.4); Potassium 3.8 mmol/L (3.5-5.5); Sodium 138 mmol/L (135-145); Total Bilirubin 0.3 mg/dL (0.3-1.2); Total Protein 5.6 d/dL (6.2-8.2)
[2022-10-28] MEDS: LORazepam 2 MG/ML INJ IV PRN ×2 (11:57→21:15)
[2022-10-28 12:16] LABS: Glucose,Whole Blood 114 mg/dL (70-110)
--- NOTE | 2022-10-28 14:15 | P.PN ---
Subjective Progress Note Date: 10/28/22 CHIEF COMPLAINT: Ruptured diverticulitis HISTORY OF PRESENT ILLNESS: Patient admitted to the hospital with acute diverticulitis with microperforation and abscess. He is on IV antibiotics. Patient reports that his pain is becoming more intermittent. He did have a sharp pain in the right and left lower quadrant of the abdomen last night. He is currently rating his pain about 3-4 out of 10. His pain with movement is less. He denies any nausea or vomiting. He is nothing by mouth except for ice chips. Afebrile. WBC is slighly elevated 10.35 Hgb 12.7 platelets 327. PHYSICAL EXAM: VITAL SIGNS: Reviewed GENERAL: Well-developed in no acute distress. HEENT: No sclera icterus. Extraocular movements grossly intact. Moist buccal mucosa. Head is atraumatic, normocephalic. Hears conversational speech. No nasal drainage. NECK: Supple without lymphadenopathy. CHEST: Non-labored respirations and equal bilateral excursions. CARDIOVASCULAR: Palpable 2+ radial pulses. ABDOMEN: Soft. Nondistended. Tenderness with palpation in the suprapubic, left lower quadrant and right lower quadrant. No evidence of peritonitis MUSCULOSKELETAL: No clubbing or cyanosis. NEUROLOGIC: No focal or lateralizing signs. Cranial nerves II through XII grossly intact. PSYCH: Appropriate affect. Alert and oriented to person, place and time. SKIN: Well perfused. Good skin turgor. ASSESSMENT: 1. Acute diverticulitis with microperforation and abscess 2. Hypertension with uncontrolled blood pressure PLAN: -Consult infectious disease for antibiotic recommendations -Consult intervention radiology service for PICC line placement for TPN -Consult dietitian for TPN -IR service is not available as of this week to drain the diverticular abscess -Keep patient nothing by mouth except for ice and popsicles -Continue IV antibiotics -Continue pain management -Continue to monitor closely -Possible surgical intervention if symptoms worsen Physician [employer] note has been reviewed by physician. Signing provider agrees with the documented findings, assessment, and plan of care. Objective - Vital Signs Vital signs: Vital Signs Temp 97.6 F 10/28/22 07:30 Pulse 72 10/28/22 07:30 Resp 16 10/28/22 07:30 BP 166/105 10/28/22 10:35 Pulse Ox 92 L 10/28/22 07:40 FiO2 Intake & Output 10/27/22 10/28/22 10/28/22 18:59 06:59 18:59 Weight 142.428 kg 142.428 kg Other: # Voids 1 2 # Bowel Movements 1 - Labs CBC & Chem 7: 10/28/22 05:59 10/28/22 05:59 Labs: Abnormal Lab Results - Last 24 Hours (Table) 10/27/22 10/27/22 10/28/22 Range/Units 16:59 20:05 05:59 WBC 10.35 H (4.50-10.00) X 10*3/uL Hct 37.9 L (39.6-50.0) % MPV 9.4 L (9.5-12.2) FL Anion Gap (4.00-12.00) mmol/L BUN (9.0-27.0) mg/dL POC Glucose (mg/dL) 114 H 116 H (70-110) mg/dL Calcium (8.7-10.3) mg/dL AST (14-35) U/L Total Protein (6.2-8.2) d/dL Albumin (3.8-4.9) d/dL Albumin/Globulin Ratio (1.60-3.17) Ratio 10/28/22 10/28/22 Range/Units 05:59 12:13 WBC (4.50-10.00) X 10*3/uL Hct (39.6-50.0) % MPV (9.5-12.2) FL Anion Gap 13.50 H (4.00-12.00) mmol/L BUN 8.7 L (9.0-27.0) mg/dL POC Glucose (mg/dL) 114 H (70-110) mg/dL Calcium 7.9 L (8.7-10.3) mg/dL AST 42 H (14-35) U/L Total Protein 5.6 L (6.2-8.2) d/dL Albumin 2.8 L (3.8-4.9) d/dL Albumin/Globulin Ratio 1.00 L (1.60-3.17) Ratio Microbiology - Last 24 Hours (Table) 10/22/22 07:00 Blood Culture - Final Blood
--- NOTE | 2022-10-28 16:14 | P.PN ---
Subjective Progress Note Date: 10/28/22 Hospital course: Patient is a very pleasant 57-year-old male with a past medical history of coronary artery disease with previous IA and stent placement in October 2021, cervical DJD, asthma, hypertension, and hypothyroidism. He initially presented to [facility] emergency room with complaints of abdominal discomfort on 10/21/22. Patient reports that his symptoms started approximately 4-5 days previously with primarily left-sided abdominal discomfort which has been radiating throughout the abdomen. Reports that his symptoms worsened over the past 24 hours and prompted him to come to the emergency room. At [facility], CT abdomen and pelvis was completed which reportedly revealed findings consistent with acute diverticulitis with micro perforation and possible early abscess formation. Patient was transferred to our facility for admission and evaluation by general surgeon. Upon arrival to our facility, labs were completed and reviewed. CBC unremarkable. Coags normal findings. BMP showing mild hyponatremia with sodium 134, hypochloremia with chloride 97, and hypocarbia with bicarb of 21. Glucose 183. Liver enzymes unremarkable. Urinalysis negative for infection. EKG was completed showing sinus tachycardia at 102 bpm with T-wave inversion in inferior lead [address] abnormalities upon personal review and interpretation.. Patient was started on IV fluid hydration along with IV antibiotics Flagyl and Rocephin and admitted under our services with consultation to general surgery. Repeat CT abdomen and pelvis was completed 10/26/22 showing redemonstration of perforated sigmoid diverticulitis with adjacent gas and air fluid collection measuring up to 7.5 cm just superior to this region a fluid component concerning for developing abscess with similar foci of gas stranding extending superiorly to the collection. Physical examination:. General: non toxic, no distress, appears at stated age Derm: warm, dry Head: atraumatic, normocephalic, symmetric Eyes: EOMI, no lid lag, anicteric sclera Mouth: no lip lesion, mucus membranes moist Cardiovascular: S1S2 reg, no murmur, positive posterior tibial pulse bilateral, Lungs: CTA bilateral, no rhonchi, no rales , no accessory muscle use Abdominal: Right lower quadrant tenderness upon palpation, soft and distended. Ext: no gross muscle atrophy, no edema, no contractures Neuro: CN II-XI grossly intact, no focal neuro deficits Psych: Alert, oriented, appropriate affect Assessment and plan of care: Acute diverticulitis with microperforation and concerns of abscess formation -Continue IV antibiotics with Zosyn 3.375 g every 8 hours. -Gen. surgery following, discussed plan of care with general surgery PA. General surgeon would like to continue to monitor patient at this time with continued IV antibiotics and IV fluid management. Order placed for PICC line placement and TPN to be initiated. General surgeon also consulting infectious disease for management of IV antibiotics. -Continue with symptomatic care and pain management. Patient continues to receive Dilaudid 1 mg IVP every 3-4 hours around the clock for uncontrolled right lower quadrant pain. -Continue with IV fluid hydration with 0.9% normal saline at 130 mL's per hour may discontinue once diet is advanced. -Blood culture showing no growth to date Hyperglycemia, hemoglobin A1c 7% Resulting in newly diagnosed type 2 diabetes mellitus. -Continue with glycemic protocol with NovoLog sliding scale. Blood 109 with heart rate of 72 patient has received clonidine 0.2 mg in addition to metoprolol 100 mg daily, lisinopril 40 mg daily, amlodipine 10 mg daily. Uncontrolled hypertension is believed to be secondary to uncontrolled pain and anxiety over possible surgery with need for colostomy. In addition to pain management, order placed for Ativan 1 mg IVP every 6 hours as needed for anxiety. Hyperlipidemia -Continue daily medication regimen with atorvastatin 80 mg daily. Hypothyroidism -Continue daily medication regimen with levothyroxine 100 g daily. Hypochloremic Hyponatremia, resolved Imaging: -No new imaging for review. Data Review: -Vital signs reviewed. Blood pressure 181/109, heart rate 72, respiratory rate 16, SpO2 96% on room air temp 97.6F. -Morning labs reviewed. CBC showing likely developed leukocytosis with WBC count of 10.35 which is increased from initial WBC count of 7.7. CODE STATUS: Full Code DVT prophylaxis: Heparin Anticipated discharge: Clinical course to determine Anticipated discharge place: Home Patient was seen independently by Nurse Pracitioner. This document was prepared using [employer] dictation software. Please allow for errors in behavior management specialist, while rare they do occur. Trace Butcher NP rendered care for this patient independently, reviewed the findings and plan as documented in the note above. I did not physically speak with or examine the patient on this date. Objective - Vital Signs Vital signs: Vital Signs Temp 97.6 F 10/28/22 07:30 Pulse 72 10/28/22 07:30 Resp 16 06/30/23 07:30 BP 181/109 10/28/22 07:30 Pulse Ox 92 L 10/28/22 07:40 FiO2 Intake & Output 10/27/22 10/28/22 10/28/22 18:59 06:59 18:59 Weight 142.428 kg Other: # Voids 1 2 # Bowel Movements 1 - Labs CBC & Chem 7: 10/28/22 05:59 10/28/22 05:59 Labs: Abnormal Lab Results - Last 24 Hours (Table) 10/27/22 10/27/22 Range/Units 16:59 20:05 POC Glucose (mg/dL) 114 H 116 H (70-110) mg/dL Microbiology - Last 24 Hours (Table) 10/22/22 07:00 Blood Culture - Final Blood
[2022-10-28 16:51] LABS: Glucose,Whole Blood 104 mg/dL (70-110)
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
[2022-10-28 21:35] LABS: Glucose,Whole Blood 97 mg/dL (70-110)
[2022-10-29] MEDS: SODIUM CHLORIDE 0.9% 1,000 ML IV SCH ×3 (00:57→23:05)
[2022-10-29] MEDS: HEPARIN SODIUM,PORCINE/PF 5,000 UNIT/0.5 ML SYRINGE SQ SCH ×4 (00:58→23:14)
[2022-10-29] MEDS: PIPERACILLIN-TAZOBACTAM 3.375 GM in SODIUM CHLORIDE 0.9% 100 ML IVPB SCH ×4 (00:58→23:14)
[2022-10-29] MEDS: HYDROmorphone 1 MG/ML 1 ML SYRINGE IVP PRN ×3 (01:01→08:38)
[2022-10-29] MEDS: MELATONIN 3 MG TABLET PO PRN ×2 (01:03→22:59)
[2022-10-29] MEDS: INSULIN ASPART (NovoLOG) 100 UNIT/ML VIAL SQ SCH ×5 (02:45→22:17)
[2022-10-29 06:14] LABS: Glucose,Whole Blood 84 mg/dL (70-110)
[2022-10-29] MEDS: LEVOTHYROXINE 100 MCG TAB PO SCH (07:06)
[2022-10-29 08:23] LABS: ALT 38 U/L (4-49); AST 41 U/L (17-59); African American GFR (CKD) >90 (>60 ml/min/1.73 sqM); Albumin 2.7 g/dL (3.5-5.0); Albumin/Globulin Ratio 0.9; Alkaline Phosphatase 64 U/L (38-126); Anion Gap 9 mmol/L; Blood Urea Nitrogen 9 mg/dL (9-20); Calcium 7.6 mg/dL (8.4-10.2); Carbon Dioxide 27 mmol/L (22-30); Chloride 100 mmol/L (98-107); Glucose 91 mg/dL (74-99); Magnesium 1.9 mg/dL (1.6-2.3); Non-African American GFR(CKD) >90 (>60 ml/min/1.73 sqM); Sodium 136 mmol/L (137-145); Total Bilirubin 0.4 mg/dL (0.2-1.3); Total Protein 5.7 g/dL (6.3-8.2)
[2022-10-29] MEDS: amLODIPine 10 MG TAB PO SCH (08:32)
[2022-10-29] MEDS: lisinopriL 20 MG TAB PO SCH (08:32)
[2022-10-29] MEDS: METOPROLOL SUCCINATE (ER) 50 MG TAB.ER.24H PO SCH (08:32)
[2022-10-29] MEDS: ATORVASTATIN 80 MG TAB PO SCH (08:32)
[2022-10-29 09:29] LABS: HGB 13.2 d/dL (12.0-15.0); MCH 28.1 pg (27.0-32.0); MCV 85.1 FL (80.0-97.0); Mean Platelet Volume 9.3 FL (9.5-12.2); NRBC Per 100 WBC 0 X 10*3/uL (0.00-0.01); Platelet Count 337 X 10*3/uL (140-440); RDW 14.5 % (11.5-14.5); WBC 7.93 X 10*3/uL (4.50-10.00)
--- NOTE | 2022-10-29 09:37 | P.PN ---
Subjective Progress Note Date: 10/29/22 Principal diagnosis: Sigmoid diverticulitis 57-year-old male with sigmoid diverticulitis. On antibiotics. He has been nothing by mouth except for ice chips. Says his pain is slightly better. White blood cell count is normal. Vital signs are stable. Passing a small amount of flatus. Objective - Vital Signs Vital signs: Vital Signs Temp 98.1 F 10/29/22 07:08 Pulse 80 10/29/22 07:08 Resp 18 10/29/22 07:08 BP 171/114 10/29/22 07:08 Pulse Ox 94 L 10/29/22 07:08 FiO2 Intake & Output 10/28/22 10/29/22 10/29/22 18:59 06:59 18:59 Weight 142.428 kg Other: Voiding Method Toilet # Voids 2 2 # Bowel Movements 1 - Exam Abdomen: Soft, mild distention, mild lower abdominal tenderness, no rebound or guarding - Labs CBC & Chem 7: 10/29/22 06:16 10/29/22 06:16 Labs: Abnormal Lab Results - Last 24 Hours (Table) 10/28/22 10/28/22 10/28/22 Range/Units 05:59 05:59 12:13 WBC 10.35 H (4.50-10.00) X 10*3/uL Hct 37.9 L (39.6-50.0) % MPV 9.4 L (9.5-12.2) FL Sodium (137-145) mmol/L Anion Gap 13.50 H (4.00-12.00) mmol/L BUN 8.7 L (9.0-27.0) mg/dL POC Glucose (mg/dL) 114 H (70-110) mg/dL Calcium 7.9 L (8.7-10.3) mg/dL AST 42 H (14-35) U/L Total Protein 5.6 L (6.2-8.2) d/dL Albumin 2.8 L (3.8-4.9) d/dL Albumin/Globulin Ratio 1.00 L (1.60-3.17) Ratio 10/29/22 10/29/22 Range/Units 06:16 06:16 WBC (4.50-10.00) X 10*3/uL Hct (39.6-50.0) % MPV 9.3 L (9.5-12.2) FL Sodium 136 L (137-145) mmol/L Anion Gap (4.00-12.00) mmol/L BUN (9.0-27.0) mg/dL POC Glucose (mg/dL) (70-110) mg/dL Calcium 7.6 L (8.7-10.3) mg/dL AST (14-35) U/L Total Protein 5.7 L (6.2-8.2) d/dL Albumin 2.7 L (3.8-4.9) d/dL Albumin/Globulin Ratio (1.60-3.17) Ratio Assessment and Plan (1) Diverticulitis of intestine, part unspecified, with perforation and abscess without bleeding Narrative/Plan: 57-year-old male with diverticulitis and retroperitoneal air collection. Apparently interventional radiology was consulted. Not sure there is anything that will be accessible to drainage currently. Will consider short-term repeat CAT scan. Keep nothing by mouth. Ambulate. Continue broad-spectrum antibiotics. Current Visit: Yes Status: Acute Code(s): K57.80 - DVTRCLI OF INTEST, PART UNSP, W PERF AND ABSCESS W/O BLEED SNOMED Code(s): 928232572
[2022-10-29] MEDS: LORazepam 2 MG/ML INJ IV PRN ×3 (10:26→22:59)
[2022-10-29] MEDS ORDERED: NALOXONE 0.4 MG/ML 1 ML VIAL IV PRN (11:23)
--- NOTE | 2022-10-29 11:27 | P.PN ---
Subjective Progress Note Date: 10/29/22 Hospital course: Patient is a very pleasant 57-year-old male with a past medical history of coronary artery disease with previous ND and stent placement in October 2021, cervical DJD, asthma, hypertension, and hypothyroidism. He initially presented to [facility] emergency room with complaints of abdominal discomfort on 10/21/22. At [facility], CT abdomen and pelvis was completed which reportedly revealed findings consistent with acute diverticulitis with micro perforation and possible early abscess formation. Patient was transferred to our facility for admission and evaluation by general surgeon. Upon arrival to our facility, labs were completed and reviewed. CBC unremarkable. Coags normal findings. BMP showing mild hyponatremia with sodium 134, hypochloremia with chloride 97, and hypocarbia with bicarb of 21. Glucose 183. Liver enzymes unremarkable. Urinalysis negative for infection. EKG was completed showing sinus tachycardia at 102 bpm with T-wave inversion in inferior lead [address] abnormalities upon personal review and interpretation.. Patient was started on IV fluid hydration along with IV antibiotics Flagyl and Rocephin and admitted under our services with consultation to general surgery. Gen: awake, alert HEENT: normocephalic, atraumatic, good hearing acuity, moist mucous membranes Resp: good air exchange, breathing comfortably with no accessory muscle use CVS: good distal perfusion x 4, GI: soft, NTTP, ND : no SPT, no CVAT, young catheter not present MSK: no pitting edema, no clubbing Neuro: non-focal, moving all extremities Psych: cooperative, euthymic mood Assessment and plan of care: Acute diverticulitis with 7.5cm Abscess Hypovolemic Hyponatremia -Continue IV antibiotics with Flagyl 500 mg every 8 hours and general surgeon discontinued Rocephin and started patient on Zosyn 3.375 g every 8 hours -Gen. surgery following, patient is to be kept NPO, unclear if there is an accessible surgical intervention, and IR route is preferred for drainage -Continue with symptomatic care and pain management. -Continue with IV fluid hydration with 0.9% normal saline at 130 mL's per hour may discontinue once diet is advanced. -Blood culture showing no growth to date Hyperglycemia, hemoglobin A1c 7% Resulting in newly diagnosed type 2 diabetes mellitus. -Continue with glycemic protocol with NovoLog sliding scale. -Will plan to discharge patient home on metformin 500 mg twice a day. -Consult placed to case management for ordering and assistance obtaining of diabetic supplies. Hypertensive urgency -Patient blood pressure is uncontrolled and morning BP 171/114 with heart rate of 80 -Pain control will be switched to a Dilaudid MEDIA DIRECTOR pump, continue with 4mg morphine IV q4h PRN for breakthrough pain -Metoprolol remains at 50 mg daily -Lisinopril increased to 40 mg daily -Added Hydralazine 25mg BID -Amlodipine switched to Nifedipine 60mg BID -Clonidine 0.2mg TID PRN is being administered for SBP > 180, will add DBP parameter today of greater than 110 Hyperlipidemia -Continue daily medication regimen with atorvastatin 80 mg daily. Hypothyroidism -Continue daily medication regimen with levothyroxine 100 g daily. Imaging: -No new imaging completed for review. Data Review: -Vital signs reviewed. Blood pressure 171/114, heart rate 80, SpO2 is 94% on room air -Morning labs reviewed. CBC is unremarkable. BMP unremarkable. LFTs show low albumin of 2.7, low total protein of 5.7 CODE STATUS: Full Code DVT prophylaxis: Heparin Anticipated discharge: Clinical course to determine Anticipated discharge place: Home Patient was seen independently by Nurse Pracitioner. This document was prepared using [email or web address] dictation software. Please allow for errors in change management expert, while rare they do occur. I reviewed the documentation as provided by the DON above, who is the original author of this note. I agree with the documented assessment and plan, with the following changes: none Objective - Vital Signs Vital signs: Vital Signs Temp 98.1 F 10/29/22 07:08 Pulse 80 10/29/22 07:08 Resp 18 10/29/22 07:08 BP 171/114 10/29/22 07:08 Pulse Ox 94 L 10/29/22 07:08 FiO2 Intake & Output 10/28/22 10/29/22 10/29/22 18:59 06:59 18:59 Weight 142.428 kg Other: Voiding Method Toilet # Voids 2 2 # Bowel Movements 1 - Labs CBC & Chem 7: 10/29/22 06:16 10/29/22 06:16 Labs: Abnormal Lab Results - Last 24 Hours (Table) 10/28/22 10/28/22 10/28/22 Range/Units 05:59 05:59 12:13 WBC 10.35 H (4.50-10.00) X 10*3/uL Hct 37.9 L (39.6-50.0) % MPV 9.4 L (9.5-12.2) FL Sodium (137-145) mmol/L Anion Gap 13.50 H (4.00-12.00) mmol/L BUN 8.7 L (9.0-27.0) mg/dL POC Glucose (mg/dL) 114 H (70-110) mg/dL Calcium 7.9 L (8.7-10.3) mg/dL AST 42 H (14-35) U/L Total Protein 5.6 L (6.2-8.2) d/dL Albumin 2.8 L (3.8-4.9) d/dL Albumin/Globulin Ratio 1.00 L (1.60-3.17) Ratio 10/29/22 10/29/22 Range/Units 06:16 06:16 WBC (4.50-10.00) X 10*3/uL Hct (39.6-50.0) % MPV 9.3 L (9.5-12.2) FL Sodium 136 L (137-145) mmol/L Anion Gap (4.00-12.00) mmol/L BUN (9.0-27.0) mg/dL POC Glucose (mg/dL) (70-110) mg/dL Calcium 7.6 L (8.7-10.3) mg/dL AST (14-35) U/L Total Protein 5.7 L (6.2-8.2) d/dL Albumin 2.7 L (3.8-4.9) d/dL Albumin/Globulin Ratio (1.60-3.17) Ratio
[2022-10-29 11:28] LABS: Glucose,Whole Blood 92 mg/dL (70-110)
[2022-10-29] MEDS: hydrALAZINE HCL 25 MG TAB PO SCH ×2 (12:59→22:55)
[2022-10-29] MEDS: HYDROmorphone PCA 10 MG/50 ML BAG IV PRN (13:29)
--- NOTE | 2022-10-29 15:20 | P.PN ---
Subjective Progress Note Date: 10/29/22 Principal diagnosis: Perforated diverticulitis with abscess Patient is a 57-year-old male presenting to the hospital on 10/22/2022 for evaluation of abdominal pain that has been going on for about 4 to 5 days before presentation to the hospital pain was mostly in the left abdominal area , patient did have a CT with evidence of diverticulitis and abscess repeat CAT scan completed on 10/26/2022 diverticulitis and abscess. On today's evaluation that is 10/29/2022, the patient denies having any fever and chills has been complaining of some discomfort lower abdominal area after the patient did have a long walk but denies having any nausea or vomiting no chest pain shortness of breath or cough Objective - Vital Signs Vital signs: Vital Signs Temp 98.1 F 10/29/22 07:08 Pulse 80 10/29/22 07:08 Resp 18 10/29/22 07:08 BP 171/114 10/29/22 07:08 Pulse Ox 94 L 10/29/22 07:08 FiO2 Intake & Output 10/28/22 10/29/22 10/29/22 18:59 06:59 18:59 Weight 142.428 kg 142.428 kg Other: Voiding Method Toilet # Voids 2 2 # Bowel Movements 1 - Exam GENERAL DESCRIPTION: Middle-aged male lying in bed in no distress RESPIRATORY SYSTEM: Unlabored breathing , decreased breath sounds at bases HEART: S1 S2 regular rate and rhythm , ABDOMEN: Soft , mild distention and tenderness EXTREMITIES: No edema feet - Labs CBC & Chem 7: 10/29/22 06:16 10/29/22 06:16 Labs: Abnormal Lab Results - Last 24 Hours (Table) 10/29/22 10/29/22 Range/Units 06:16 06:16 MPV 9.3 L (9.5-12.2) FL Sodium 136 L (137-145) mmol/L Calcium 7.6 L (8.4-10.2) mg/dL Total Protein 5.7 L (6.3-8.2) g/dL Albumin 2.7 L (3.5-5.0) g/dL Assessment and Plan (1) Diverticulitis of intestine, part unspecified, with perforation and abscess without bleeding Current Visit: Yes Status: Acute Code(s): K57.80 - DVTRCLI OF INTEST, PART UNSP, W PERF AND ABSCESS W/O BLEED SNOMED Code(s): 194164091 Plan: 1patient was in the hospital abdominal pain and this patient has been diagnosed with a perforated diverticulitis and concerning for abscess formation likely from enteric gram-negative both aerobes and anaerobes patient is reporting some improvement in his symptoms he is afebrile and white count is normal 2-CT-guided aspirate of this fluid collection that should be sent for culture if it can be drained through CT-guided 3-patient to continue with the Zosyn 3.37 mg every 8 hours and monitor clinical course closely Time with Patient: Less than 30
[2022-10-29 16:44] LABS: Glucose,Whole Blood 90 mg/dL (70-110)
[2022-10-29 21:25] LABS: Glucose,Whole Blood 94 mg/dL (70-110)
[2022-10-30 05:54] LABS: Glucose,Whole Blood 97 mg/dL (70-110)
[2022-10-30] MEDS: LEVOTHYROXINE 100 MCG TAB PO SCH (06:15)
[2022-10-30] MEDS: LORazepam 2 MG/ML INJ IV PRN ×3 (06:15→20:14)
[2022-10-30] MEDS: INSULIN ASPART (NovoLOG) 100 UNIT/ML VIAL SQ SCH ×4 (06:18→22:39)
[2022-10-30] MEDS: ATORVASTATIN 80 MG TAB PO SCH (08:06)
[2022-10-30] MEDS: hydrALAZINE HCL 25 MG TAB PO SCH ×2 (08:06→20:14)
[2022-10-30] MEDS: METOPROLOL SUCCINATE (ER) 50 MG TAB.ER.24H PO SCH (08:07)
[2022-10-30] MEDS: HEPARIN SODIUM,PORCINE/PF 5,000 UNIT/0.5 ML SYRINGE SQ SCH ×3 (08:07→23:17)
[2022-10-30] MEDS: lisinopriL 20 MG TAB PO SCH (08:07)
[2022-10-30] MEDS: PIPERACILLIN-TAZOBACTAM 3.375 GM in SODIUM CHLORIDE 0.9% 100 ML IVPB SCH ×3 (09:01→23:18)
[2022-10-30] MEDS: SODIUM CHLORIDE 0.9% 1,000 ML IV SCH (09:02)
--- NOTE | 2022-10-30 10:08 | P.PN ---
Subjective Progress Note Date: 10/30/22 Principal diagnosis: Sigmoid diverticulitis Patient feels better today. Says his pain is less. He is passing flatus. Denies bloating. Tolerating clear liquids. Objective - Vital Signs Vital signs: Vital Signs Temp 97.4 F L 10/30/22 07:45 Pulse 85 10/30/22 07:45 Resp 17 10/30/22 07:45 BP 145/92 10/30/22 07:45 Pulse Ox 92 L 10/30/22 07:51 FiO2 Intake & Output 10/29/22 10/30/22 10/30/22 18:59 06:59 18:59 Weight 142.428 kg Other: Voiding Method Toilet Toilet # Voids 3 3 - Exam Abdomen: Soft, nondistended, mild lower abdominal tenderness, no rebound or guarding - Constitutional General appearance: Present: average body habitus - Labs CBC & Chem 7: 10/29/22 06:16 10/29/22 06:16 Assessment and Plan (1) Diverticulitis of intestine, part unspecified, with perforation and abscess without bleeding Narrative/Plan: Patient doing better at this time. Advance to full liquid diet. Continue ambulation. Continue antibiotics. Current Visit: Yes Status: Acute Code(s): K57.80 - DVTRCLI OF INTEST, PART UNSP, W PERF AND ABSCESS W/O BLEED SNOMED Code(s): 789727938
[2022-10-30] MEDS: HYDROmorphone PCA 10 MG/50 ML BAG IV PRN (10:51)
[2022-10-30 11:03] LABS: Glucose,Whole Blood 112 mg/dL (70-110)
--- NOTE | 2022-10-30 13:18 | P.PN ---
Subjective Progress Note Date: 10/30/22 Hospital course: Patient is a very pleasant 57-year-old male with a past medical history of coronary artery disease with previous [place] and stent placement in October 2021, cervical DJD, asthma, hypertension, and hypothyroidism. He initially presented to [facility] emergency room with complaints of abdominal discomfort on 10/21/22. At [facility], CT abdomen and pelvis was completed which reportedly revealed findings consistent with acute diverticulitis with micro perforation and possible early abscess formation. Patient was transferred to our facility for admission and evaluation by general surgeon. Upon arrival to our facility, labs were completed and reviewed. CBC unremarkable. Coags normal findings. BMP showing mild hyponatremia with sodium 134, hypochloremia with chloride 97, and hypocarbia with bicarb of 21. Glucose 183. Liver enzymes unremarkable. Urinalysis negative for infection. EKG was completed showing sinus tachycardia at 102 bpm with T-wave inversion in inferior lead [address] abnormalities upon personal review and interpretation.. Patient was started on IV fluid hydration along with IV antibiotics Flagyl and Rocephin and admitted under our services with consultation to general surgery. Gen: awake, alert HEENT: normocephalic, atraumatic, good hearing acuity, moist mucous membranes Resp: good air exchange, breathing comfortably with no accessory muscle use CVS: good distal perfusion x 4, GI: soft, NTTP, ND : no SPT, no CVAT, young catheter not present MSK: no pitting edema, no clubbing Neuro: non-focal, moving all extremities Psych: cooperative, euthymic mood Assessment and plan of care: Acute diverticulitis with 7.5cm Abscess Hypovolemic Hyponatremia -Continue IV antibiotics with Zosyn 3.375 g every 8 hours -Gen. surgery following, patient is full liquid diet, unclear if there is an accessible surgical intervention, and IR route is preferred for drainage -Continue with symptomatic care and pain management. -Continue with IV fluid hydration with 0.9% normal saline at 130 mL's per hour may discontinue once diet is advanced. -Blood culture showing no growth to date Hyperglycemia, hemoglobin A1c 7% Resulting in newly diagnosed type 2 diabetes mellitus. -Continue with glycemic protocol with NovoLog sliding scale. -Will plan to discharge patient home on metformin 500 mg twice a day. -Consult placed to case management for ordering and assistance obtaining of diabetic supplies. Hypertensive urgency -Patient blood pressure is better today with 145/92, HR 85 -Pain control will be switched to a Dilaudid DIE TURNER pump, continue with 4mg morphine IV q4h PRN for breakthrough pain -Metoprolol remains at 50 mg daily -Lisinopril increased to 40 mg daily -Added Hydralazine 25mg BID -Amlodipine switched to Nifedipine 60mg BID -Clonidine 0.2mg TID PRN is being administered for SBP > 180, will add DBP parameter today of greater than 110 Hyperlipidemia -Continue daily medication regimen with atorvastatin 80 mg daily. Hypothyroidism -Continue daily medication regimen with levothyroxine 100 g daily. Imaging: -No new imaging completed for review. Data Review: -Vital signs reviewed. Blood pressure 171/114, heart rate 80, SpO2 is 94% on room air -Morning labs reviewed. CBC is unremarkable. BMP unremarkable. LFTs show low albumin of 2.7, low total protein of 5.7 CODE STATUS: Full Code DVT prophylaxis: Heparin Anticipated discharge: Clinical course to determine Anticipated discharge place: Home Patient was seen independently by Nurse Pracitioner. This document was prepared using [employer] dictation software. Please allow for errors in gerentological physiotherapist, while rare they do occur. I reviewed the documentation as provided by the DON above, who is the original author of this note. I agree with the documented assessment and plan, with the following changes: none Objective - Vital Signs Vital signs: Vital Signs Temp 97.4 F L 10/30/22 07:45 Pulse 85 10/30/22 07:45 Resp 17 10/30/22 07:45 BP 145/92 10/30/22 07:45 Pulse Ox 92 L 10/30/22 07:51 FiO2 Intake & Output 10/29/22 10/30/22 10/30/22 18:59 06:59 18:59 Weight 142.428 kg Other: Voiding Method Toilet Toilet # Voids 3 3 - Labs CBC & Chem 7: 10/29/22 06:16 10/29/22 06:16 Labs: Abnormal Lab Results - Last 24 Hours (Table) 10/30/22 Range/Units 10:59 POC Glucose (mg/dL) 112 H (70-110) mg/dL
[2022-10-30 16:28] LABS: Glucose,Whole Blood 120 mg/dL (70-110)
--- NOTE | 2022-10-30 17:20 | P.PN ---
Subjective Progress Note Date: 10/30/22 Principal diagnosis: Perforated diverticulitis with abscess Patient is a 57-year-old male presenting to the hospital on 10/22/2022 for evaluation of abdominal pain that has been going on for about 4 to 5 days before presentation to the hospital pain was mostly in the left abdominal area , patient did have a CT with evidence of diverticulitis and abscess repeat CAT scan completed on 10/26/2022 diverticulitis and abscess. On today's evaluation that is 10/30/2022, the patient remains to be afebrile, the patient abdominal abdominal pain is better controlled with UNDERWRITING ANALYST, the patient denies having any nausea or vomiting no chest pain shortness of breath or cough Objective - Vital Signs Vital signs: Vital Signs Temp 97.3 F L 10/30/22 13:23 Pulse 96 10/30/22 13:23 Resp 18 10/30/22 13:23 BP 142/88 10/30/22 13:23 Pulse Ox 92 L 10/30/22 13:23 FiO2 Intake & Output 10/29/22 10/30/22 10/30/22 18:59 06:59 18:59 Weight 142.428 kg Other: Voiding Method Toilet Toilet # Voids 3 3 - Exam GENERAL DESCRIPTION: Middle-aged male lying in bed in no distress RESPIRATORY SYSTEM: Unlabored breathing , decreased breath sounds at bases HEART: S1 S2 regular rate and rhythm , ABDOMEN: Soft , mild distention and tenderness EXTREMITIES: No edema feet - Labs CBC & Chem 7: 10/29/22 06:16 10/29/22 06:16 Labs: Abnormal Lab Results - Last 24 Hours (Table) 10/30/22 Range/Units 10:59 POC Glucose (mg/dL) 112 H (70-110) mg/dL Assessment and Plan (1) Diverticulitis of intestine, part unspecified, with perforation and abscess without bleeding Current Visit: Yes Status: Acute Code(s): K57.80 - DVTRCLI OF INTEST, PART UNSP, W PERF AND ABSCESS W/O BLEED SNOMED Code(s): 214542305 Plan: 1patient was in the hospital abdominal pain and this patient has been diagnosed with a perforated diverticulitis and concerning for abscess formation likely from enteric gram-negative both aerobes and anaerobes patient is reporting some improvement in his symptoms he is afebrile and white count is normal 2-patient seemed to show some clinical improvement and will continue with the Zosyn 3.37 mg every 8 hours and likely IV antibiotic on discharge especially if no drainage procedure planned or possible Time with Patient: Less than 30
[2022-10-30] MEDS: MELATONIN 3 MG TABLET PO PRN (20:14)
[2022-10-30 21:24] LABS: Glucose,Whole Blood 113 mg/dL (70-110)
[2022-10-31] MEDS: SODIUM CHLORIDE 0.9% 1,000 ML IV SCH ×2 (01:39→12:47)
[2022-10-31] MEDS: LORazepam 2 MG/ML INJ IV PRN ×4 (03:30→22:06)
[2022-10-31 05:37] LABS: ALT 37 U/L (4-49); AST 39 U/L (17-59); African American GFR (CKD) >90 (>60 ml/min/1.73 sqM); Albumin 2.6 g/dL (3.5-5.0); Albumin/Globulin Ratio 0.9; Alkaline Phosphatase 61 U/L (38-126); Anion Gap 6 mmol/L; Blood Urea Nitrogen 5 mg/dL (9-20); Calcium 7.6 mg/dL (8.4-10.2); Carbon Dioxide 27 mmol/L (22-30); Chloride 101 mmol/L (98-107); Globulin 2.8 g/dL; Glucose 136 mg/dL (74-99); Magnesium 1.7 mg/dL (1.6-2.3); Non-African American GFR(CKD) >90 (>60 ml/min/1.73 sqM); Phosphorus 3.4 mg/dL (2.5-4.5); Potassium 3.3 mmol/L (3.5-5.1); Sodium 134 mmol/L (137-145); Total Bilirubin 0.4 mg/dL (0.2-1.3); Total Protein 5.4 g/dL (6.3-8.2)
[2022-10-31 05:46] LABS: Ionized Calcium 4.5 mg/dL (4.5-5.3)
[2022-10-31 06:09] LABS: Glucose,Whole Blood 126 mg/dL (70-110)
[2022-10-31] MEDS: LEVOTHYROXINE 100 MCG TAB PO SCH (06:41)
[2022-10-31] MEDS: INSULIN ASPART (NovoLOG) 100 UNIT/ML VIAL SQ SCH ×3 (07:59→16:39)
[2022-10-31] MEDS: HEPARIN SODIUM,PORCINE/PF 5,000 UNIT/0.5 ML SYRINGE SQ SCH ×2 (08:33→16:38)
[2022-10-31] MEDS: METOPROLOL SUCCINATE (ER) 50 MG TAB.ER.24H PO SCH (08:33)
[2022-10-31] MEDS: ATORVASTATIN 80 MG TAB PO SCH (08:33)
[2022-10-31] MEDS: lisinopriL 20 MG TAB PO SCH (08:33)
[2022-10-31] MEDS: hydrALAZINE HCL 25 MG TAB PO SCH ×2 (08:33→22:06)
[2022-10-31] MEDS ORDERED: POTASSIUM CHLORIDE ER 20 MEQ TAB.ER PO STA (08:41)
[2022-10-31] MEDS: PIPERACILLIN-TAZOBACTAM 3.375 GM in SODIUM CHLORIDE 0.9% 100 ML IVPB SCH ×2 (08:42→17:48)
--- NOTE | 2022-10-31 09:38 | P.PN ---
Subjective Progress Note Date: 10/31/22 Hospital course: Patient is a very pleasant 57-year-old male with a past medical history of coronary artery disease with previous OR and stent placement in October 2021, cervical DJD, asthma, hypertension, and hypothyroidism. He initially presented to [facility] emergency room with complaints of abdominal discomfort on 10/21/22. At [facility], CT abdomen and pelvis was completed which reportedly revealed findings consistent with acute diverticulitis with micro perforation and possible early abscess formation. Patient was transferred to our facility for admission and evaluation by general surgeon. Upon arrival to our facility, labs were completed and reviewed. CBC unremarkable. Coags normal findings. BMP showing mild hyponatremia with sodium 134, hypochloremia with chloride 97, and hypocarbia with bicarb of 21. Glucose 183. Liver enzymes unremarkable. Urinalysis negative for infection. EKG was completed showing sinus tachycardia at 102 bpm with T-wave inversion in inferior lead [address] abnormalities upon personal review and interpretation.. Patient was started on IV fluid hydration along with IV antibiotics Flagyl and Rocephin and admitted under our services with consultation to general surgery. Gen: awake, alert HEENT: normocephalic, atraumatic, good hearing acuity, moist mucous membranes Resp: good air exchange, breathing comfortably with no accessory muscle use CVS: good distal perfusion x 4, GI: soft, NTTP, ND : no SPT, no CVAT, young catheter not present MSK: no pitting edema, no clubbing Neuro: non-focal, moving all extremities Psych: cooperative, euthymic mood Assessment and plan of care: Acute diverticulitis with 7.5cm Abscess Hypovolemic Hyponatremia -Continue IV antibiotics with Zosyn 3.375 g every 8 hours -Gen. surgery following, patient is full liquid diet, unclear if there is an accessible surgical intervention, and IR route is preferred for drainage -Continue with symptomatic care and pain management. -Continue with IV fluid hydration with 0.9% normal saline at 130 mL's per hour may discontinue once diet is advanced. -Blood culture showing no growth to date Hyperglycemia, hemoglobin A1c 7% Resulting in newly diagnosed type 2 diabetes mellitus. -Continue with glycemic protocol with NovoLog sliding scale. -Will plan to discharge patient home on metformin 500 mg twice a day. -Consult placed to case management for ordering and assistance obtaining of diabetic supplies. Hypertensive urgency -Patient blood pressure is better today with 136/90, HR 83 -Pain control with a Dilaudid PERSONAL TRAINER pump, continue with 4mg morphine IV q4h PRN for breakthrough pain -Metoprolol remains at 50 mg daily -Lisinopril increased to 40 mg daily -Added Hydralazine 25mg BID -Amlodipine switched to Nifedipine 60mg BID -Clonidine 0.2mg TID PRN is being administered for SBP > 180, will add DBP parameter today of greater than 110 Hyperlipidemia -Continue daily medication regimen with atorvastatin 80 mg daily. Hypothyroidism -Continue daily medication regimen with levothyroxine 100 g daily. Imaging: -No new imaging completed for review. Data Review: -Vital signs reviewed. Blood pressure 171/114, heart rate 80, SpO2 is 94% on room air -Morning labs reviewed. BMP shows Na 134, K 3.3. LFTs show TP 5.4, Alb 2.6 CODE STATUS: Full Code DVT prophylaxis: Heparin Anticipated discharge: Clinical course to determine Anticipated discharge place: Home Objective - Vital Signs Vital signs: Vital Signs Temp 97.8 F 10/31/22 07:45 Pulse 83 10/31/22 07:45 Resp 16 10/31/22 07:45 BP 136/90 10/31/22 07:45 Pulse Ox 94 L 10/31/22 07:45 FiO2 Intake & Output 10/30/22 10/31/22 10/31/22 18:59 06:59 18:59 Intake Total 200 Balance 200 Intake: Oral 200 Other: Voiding Method Toilet # Voids 3 2 # Bowel Movements 2 - Labs CBC & Chem 7: 10/29/22 06:16 10/31/22 04:41 Labs: Abnormal Lab Results - Last 24 Hours (Table) 10/30/22 10/30/22 10/30/22 Range/Units 10:59 16:26 21:22 Sodium (137-145) mmol/L Potassium (3.5-5.1) mmol/L BUN (9-20) mg/dL Creatinine (0.66-1.25) mg/dL Glucose (74-99) mg/dL POC Glucose (mg/dL) 112 H 120 H 113 H (70-110) mg/dL Calcium (8.4-10.2) mg/dL Total Protein (6.3-8.2) g/dL Albumin (3.5-5.0) g/dL 10/31/22 10/31/22 Range/Units 04:41 06:08 Sodium 134 L (137-145) mmol/L Potassium 3.3 L (3.5-5.1) mmol/L BUN 5 L (9-20) mg/dL Creatinine 0.61 L (0.66-1.25) mg/dL Glucose 136 H (74-99) mg/dL POC Glucose (mg/dL) 126 H (70-110) mg/dL Calcium 7.6 L (8.4-10.2) mg/dL Total Protein 5.4 L (6.3-8.2) g/dL Albumin 2.6 L (3.5-5.0) g/dL
--- NOTE | 2022-10-31 10:45 | P.PN ---
Subjective Progress Note Date: 10/31/22 Principal diagnosis: Sigmoid diverticulitis Patient says he feels better today. He was switched over to a [facility] which he found more convenient for pain control. Overall pain continues to lessen he says. He is tolerating full liquids. He did have a few bowel movements. He is afebrile. Objective - Vital Signs Vital signs: Vital Signs Temp 97.8 F 10/31/22 07:45 Pulse 83 10/31/22 07:45 Resp 16 10/31/22 07:45 BP 136/90 10/31/22 07:45 Pulse Ox 94 L 10/31/22 09:53 FiO2 Intake & Output 10/30/22 10/31/22 10/31/22 18:59 06:59 18:59 Intake Total 200 Balance 200 Intake: Oral 200 Other: Voiding Method Toilet Toilet # Voids 3 2 # Bowel Movements 2 - Exam Abdomen: Soft, nondistended, mild lower quadrant tenderness, no rebound or guarding - Labs CBC & Chem 7: 10/29/22 06:16 10/31/22 04:41 Labs: Abnormal Lab Results - Last 24 Hours (Table) 10/30/22 10/30/22 10/30/22 Range/Units 10:59 16:26 21:22 Sodium (137-145) mmol/L Potassium (3.5-5.1) mmol/L BUN (9-20) mg/dL Creatinine (0.66-1.25) mg/dL Glucose (74-99) mg/dL POC Glucose (mg/dL) 112 H 120 H 113 H (70-110) mg/dL Calcium (8.4-10.2) mg/dL Total Protein (6.3-8.2) g/dL Albumin (3.5-5.0) g/dL 10/31/22 10/31/22 Range/Units 04:41 06:08 Sodium 134 L (137-145) mmol/L Potassium 3.3 L (3.5-5.1) mmol/L BUN 5 L (9-20) mg/dL Creatinine 0.61 L (0.66-1.25) mg/dL Glucose 136 H (74-99) mg/dL POC Glucose (mg/dL) 126 H (70-110) mg/dL Calcium 7.6 L (8.4-10.2) mg/dL Total Protein 5.4 L (6.3-8.2) g/dL Albumin 2.6 L (3.5-5.0) g/dL Assessment and Plan (1) Diverticulitis of intestine, part unspecified, with perforation and abscess without bleeding Narrative/Plan: 57-year-old male with diverticulitis. Patient continues to slowly improve. Discussed case with interventional radiology earlier today. They do not feel he is a candidate for percutaneous drainage. They are advising short-term follow- up CAT scan. Patient continues to clinically improve. Continue antibiotics. Proceed with PICC line for possible home IV antibiotics. Will follow. Current Visit: Yes Status: Acute Code(s): K57.80 - DVTRCLI OF INTEST, PART UNSP, W PERF AND ABSCESS W/O BLEED SNOMED Code(s): 122495009
[2022-10-31 11:23] LABS: Glucose,Whole Blood 120 mg/dL (70-110)
[2022-10-31] MEDS: HYDROmorphone PCA 10 MG/50 ML BAG IV PRN (12:07)
[2022-10-31] MEDS: FAT EMULSION 20% 250 ML in EMPTY BAG 1 BAG IV SCH (12:40)
[2022-10-31] MEDS ORDERED: FAT EMULSION 20% 500 ML in EMPTY BAG 1 BAG IV SCH (13:00)
[2022-10-31] MEDS ORDERED: MVI, ADULT NO.4 WITH VIT K 10 ML, TRACE (CONC-1ML/DOSE) 1 ML in AMINO ACID 5%-D20W+LYTE... IV ONE ×3 (13:00)
--- NOTE | 2022-10-31 14:19 | IR ---
PICC LINE PLACEMENT: HISTORY: Infection requiring long-term antibiotic therapy PROCEDURE: Ultrasound and fluoroscopic guidance of PICC line placement. COMPLICATIONS: None ANESTHESIA: 1. 1% Lidocaine locally. FINDINGS/TECHNIQUE: The procedure was explained to the patient. The risks, complications, benefits and alternatives were discussed and any questions were answered. Informed consent was obtained. The patient was placed supine on the fluoroscopic table and prepped and draped in the usual sterile fash ion. Utilizing a 21 gauge needle and sonographic and fluoroscopic guidance, access in the left basi lic vein was achieved and there is placement of a 0.018 guidewire. The vein is patent. A 4-F sheath was placed over the guidewire. The guidewire and dilator were removed and a 4-F. PICC line was plac ed through the sheath with the tip at the level of the SVC. The sheath was removed, the catheter was flushed and sutured into position. The patient was stable throughout the procedure and remained sta ble upon discharge from the Department of Radiology. The vein puncture was patent under ultrasound. A devries scale image was obtained to document patency of the vein punctured. All elements of the maximal barrier technique were utilized. FLUOROSCOPY TIME: DAP 0.296 Gy cm2 IMPRESSION: Successful PICC line placement under ultrasound and fluoroscopic guidance.
[2022-10-31 16:30] LABS: Glucose,Whole Blood 122 mg/dL (70-110)
[2022-11-01] MEDS: HEPARIN SODIUM,PORCINE/PF 5,000 UNIT/0.5 ML SYRINGE SQ SCH ×3 (00:05→17:14)
[2022-11-01] MEDS: MELATONIN 3 MG TABLET PO PRN ×2 (00:05→21:59)
[2022-11-01] MEDS: PIPERACILLIN-TAZOBACTAM 3.375 GM in SODIUM CHLORIDE 0.9% 100 ML IVPB SCH ×3 (00:05→16:54)
[2022-11-01 00:29] LABS: Glucose,Whole Blood 127 mg/dL (70-110)
[2022-11-01] MEDS: INSULIN ASPART (NovoLOG) 100 UNIT/ML VIAL SQ SCH ×4 (03:29→17:14)
[2022-11-01] MEDS: LORazepam 2 MG/ML INJ IV PRN ×3 (04:05→17:26)
[2022-11-01 06:03] LABS: Glucose,Whole Blood 138 mg/dL (70-110)
[2022-11-01] MEDS: LEVOTHYROXINE 100 MCG TAB PO SCH (06:14)
[2022-11-01] MEDS: SODIUM CHLORIDE 0.9% 1,000 ML IV SCH (06:16)
[2022-11-01] MEDS: hydrALAZINE HCL 25 MG TAB PO SCH ×2 (08:07→21:54)
[2022-11-01] MEDS: lisinopriL 20 MG TAB PO SCH (08:07)
[2022-11-01] MEDS: ATORVASTATIN 80 MG TAB PO SCH (08:07)
[2022-11-01] MEDS: METOPROLOL SUCCINATE (ER) 50 MG TAB.ER.24H PO SCH (08:07)
[2022-11-01] MEDS: HYDROmorphone PCA 10 MG/50 ML BAG IV PRN (09:36)
--- NOTE | 2022-11-01 09:41 | P.PN ---
Subjective Progress Note Date: 11/01/22 Principal diagnosis: Sigmoid diverticulitis Patient says he did not sleep well last night. He thought that the initiation of TPN and increase fluids made him urinate too many times. He said he did have some increased discomfort lower abdomen is morning but it is better now. No fevers. Hemodynamically stable. Tolerating liquids. He did have a bowel movement yesterday. Objective - Vital Signs Vital signs: Vital Signs Temp 98 F 11/01/22 00:23 Pulse 88 11/01/22 08:00 Resp 19 11/01/22 08:00 BP 126/82 11/01/22 08:00 Pulse Ox 94 L 11/01/22 08:00 FiO2 Intake & Output 10/31/22 11/01/22 11/01/22 18:59 06:59 18:59 Intake Total 540 Output Total 1 Balance 540 -1 Weight 146.992 kg 146.5 kg Intake: Oral 540 Output: Urine 1 Other: Voiding Method Toilet # Voids 3 - Exam Abdomen: Soft, nondistended, mild lower abdominal tenderness, no rebound or guarding - Labs CBC & Chem 7: 10/29/22 06:16 10/31/22 04:41 Labs: Abnormal Lab Results - Last 24 Hours (Table) 10/31/22 10/31/22 11/01/22 Range/Units 11:17 16:26 00:22 POC Glucose (mg/dL) 120 H 122 H 127 H (70-110) mg/dL 11/01/22 Range/Units 06:01 POC Glucose (mg/dL) 138 H (70-110) mg/dL Assessment and Plan (1) Diverticulitis of intestine, part unspecified, with perforation and abscess without bleeding Narrative/Plan: Patient had PICC line placed yesterday and TPN was started. Continue liquid diet. Continue broad-spectrum antibiotics. Possible repeat CAT scan tomorrow since it will be one week. Current Visit: Yes Status: Acute Code(s): K57.80 - DVTRCLI OF INTEST, PART UNSP, W PERF AND ABSCESS W/O BLEED SNOMED Code(s): 064934896
[2022-11-01 11:28] LABS: Ionized Calcium 4.8 mg/dL (4.5-5.3)
[2022-11-01 11:34] LABS: ALT 40 U/L (4-49); AST 43 U/L (17-59); African American GFR (CKD) >90 (>60 ml/min/1.73 sqM); Alkaline Phosphatase 70 U/L (38-126); Anion Gap 8 mmol/L; Blood Urea Nitrogen 4 mg/dL (9-20); Calcium 8.2 mg/dL (8.4-10.2); Carbon Dioxide 30 mmol/L (22-30); Chloride 98 mmol/L (98-107); Globulin 3.1 g/dL; Glucose 148 mg/dL (74-99); Magnesium 1.8 mg/dL (1.6-2.3); Non-African American GFR(CKD) >90 (>60 ml/min/1.73 sqM); Phosphorus 3.9 mg/dL (2.5-4.5); Potassium 3.8 mmol/L (3.5-5.1); Sodium 136 mmol/L (137-145); Total Bilirubin 0.4 mg/dL (0.2-1.3); Total Protein 6.1 g/dL (6.3-8.2)
[2022-11-01 11:47] LABS: Glucose,Whole Blood 124 mg/dL (70-110)
[2022-11-01 11:56] LABS: Basophils # (A) 0.1 k/uL (0-0.2); Basophils % (A) 1 %; Eosinophils # (A) 0.4 k/uL (0-0.7); Eosinophils % (A) 6 %; HCT 40.4 % (39.0-53.0); Lymphocytes # (A) 1.4 k/uL (1.0-4.8); Lymphocytes % (A) 20 %; MCH 28.8 pg (25.0-35.0); MCHC 32.3 g/dL (31.0-37.0); MCV 89.1 fL (80.0-100.0); Mean Platelet Volume 7.8; Monocytes # (A) 0.4 k/uL (0-1.0); Monocytes % (A) 6 %; Neutrophils # (A) 4.4 k/uL (1.3-7.7); Neutrophils % (A) 66 %; Platelet Count 346 k/uL (150-450); RBC 4.53 m/uL (4.30-5.90); RDW 14.9 % (11.5-15.5); WBC 6.7 k/uL (3.8-10.6)
--- NOTE | 2022-11-01 14:26 | P.PN ---
Subjective Progress Note Date: 10/31/22 Principal diagnosis: Perforated diverticulitis with abscess Patient is a 57-year-old male presenting to the hospital on 10/22/2022 for evaluation of abdominal pain that has been going on for about 4 to 5 days before presentation to the hospital pain was mostly in the left abdominal area , patient did have a CT with evidence of diverticulitis and abscess repeat CAT scan completed on 10/26/2022 diverticulitis and abscess. On today's evaluation that is 10/31/2022, the patient continues to be afebrile, the patient abdominal abdominal pain is better controlled with COAT ROOM ATTENDANT, the patient denies having any nausea or vomiting , the patient denies chest pain shortness of breath or cough Objective - Vital Signs Vital signs: Vital Signs Temp 97.8 F 10/31/22 07:45 Pulse 83 10/31/22 07:45 Resp 16 10/31/22 07:45 BP 136/90 10/31/22 07:45 Pulse Ox 94 L 10/31/22 09:53 FiO2 Intake & Output 10/30/22 10/31/22 10/31/22 18:59 06:59 18:59 Intake Total 200 Balance 200 Weight 142.428 kg Intake: Oral 200 Other: Voiding Method Toilet Toilet # Voids 3 2 # Bowel Movements 2 - Exam GENERAL DESCRIPTION: Middle-aged male lying in bed in no distress RESPIRATORY SYSTEM: Unlabored breathing , decreased breath sounds at bases HEART: S1 S2 regular rate and rhythm , ABDOMEN: Soft , mild distention and tenderness EXTREMITIES: No edema feet - Labs CBC & Chem 7: 11/01/22 08:25 11/01/22 08:25 Labs: Abnormal Lab Results - Last 24 Hours (Table) 10/30/22 10/30/22 10/31/22 Range/Units 16:26 21:22 04:41 Sodium 134 L (137-145) mmol/L Potassium 3.3 L (3.5-5.1) mmol/L BUN 5 L (9-20) mg/dL Creatinine 0.61 L (0.66-1.25) mg/dL Glucose 136 H (74-99) mg/dL POC Glucose (mg/dL) 120 H 113 H (70-110) mg/dL Calcium 7.6 L (8.4-10.2) mg/dL Total Protein 5.4 L (6.3-8.2) g/dL Albumin 2.6 L (3.5-5.0) g/dL 10/31/22 10/31/22 Range/Units 06:08 11:17 Sodium (137-145) mmol/L Potassium (3.5-5.1) mmol/L BUN (9-20) mg/dL Creatinine (0.66-1.25) mg/dL Glucose (74-99) mg/dL POC Glucose (mg/dL) 126 H 120 H (70-110) mg/dL Calcium (8.4-10.2) mg/dL Total Protein (6.3-8.2) g/dL Albumin (3.5-5.0) g/dL Assessment and Plan (1) Diverticulitis of intestine, part unspecified, with perforation and abscess without bleeding Current Visit: Yes Status: Acute Code(s): K57.80 - DVTRCLI OF INTEST, PART UNSP, W PERF AND ABSCESS W/O BLEED SNOMED Code(s): 977501073 Plan: 1patient was in the hospital abdominal pain and this patient has been diagnosed with a perforated diverticulitis and concerning for abscess formation likely from enteric gram-negative both aerobes and anaerobes patient is reporting some improvement in his symptoms he is afebrile and white count is normal 2-patient has shown some clinical improvement and will continue with the Zosyn 3.37 mg every 8 hours and likely IV antibiotic on discharge and monitor clinical course closely Time with Patient: Less than 30
--- NOTE | 2022-11-01 14:27 | P.PN ---
Subjective Progress Note Date: 11/01/22 Principal diagnosis: Perforated diverticulitis with abscess Patient is a 57-year-old male presenting to the hospital on 10/22/2022 for evaluation of abdominal pain that has been going on for about 4 to 5 days before presentation to the hospital pain was mostly in the left abdominal area , patient did have a CT with evidence of diverticulitis and abscess repeat CAT scan completed on 10/26/2022 diverticulitis and abscess. On today's evaluation that is 11/01/2022, the patient denies any fever or any chills, the patient did have more abdominal pain last night however is doing better this afternoon , the patient denies having any nausea or vomiting , the patient denies chest pain shortness of breath or cough Objective - Vital Signs Vital signs: Vital Signs Temp 98 F 11/01/22 00:23 Pulse 88 11/01/22 08:00 Resp 19 11/01/22 08:00 BP 126/82 11/01/22 08:00 Pulse Ox 94 L 11/01/22 09:39 FiO2 Intake & Output 10/31/22 11/01/22 11/01/22 18:59 06:59 18:59 Intake Total 540 Output Total 2 Balance 540 -2 Weight 146.992 kg 146.5 kg Intake: Oral 540 Output: Urine 2 Other: Voiding Method Toilet # Voids 3 - Exam GENERAL DESCRIPTION: Middle-aged male lying in bed in no distress RESPIRATORY SYSTEM: Unlabored breathing , decreased breath sounds at bases HEART: S1 S2 regular rate and rhythm , ABDOMEN: Soft , mild distention and tenderness EXTREMITIES: No edema feet - Labs CBC & Chem 7: 11/01/22 08:25 11/01/22 08:25 Labs: Abnormal Lab Results - Last 24 Hours (Table) 10/31/22 11/01/22 11/01/22 Range/Units 16:26 00:22 06:01 Sodium (137-145) mmol/L BUN (9-20) mg/dL Glucose (74-99) mg/dL POC Glucose (mg/dL) 122 H 127 H 138 H (70-110) mg/dL Calcium (8.4-10.2) mg/dL Total Protein (6.3-8.2) g/dL Albumin (3.5-5.0) g/dL 11/01/22 11/01/22 Range/Units 08:25 11:45 Sodium 136 L (137-145) mmol/L BUN 4 L (9-20) mg/dL Glucose 148 H (74-99) mg/dL POC Glucose (mg/dL) 124 H (70-110) mg/dL Calcium 8.2 L (8.4-10.2) mg/dL Total Protein 6.1 L (6.3-8.2) g/dL Albumin 3.0 L (3.5-5.0) g/dL Assessment and Plan (1) Diverticulitis of intestine, part unspecified, with perforation and abscess without bleeding Current Visit: Yes Status: Acute Code(s): K57.80 - DVTRCLI OF INTEST, PART UNSP, W PERF AND ABSCESS W/O BLEED SNOMED Code(s): 524291184 Plan: 1patient was in the hospital abdominal pain and this patient has been diagnosed with a perforated diverticulitis and concerning for abscess formation likely from enteric gram-negative both aerobes and anaerobes patient is reporting some improvement in his symptoms he is afebrile and white count is normal 2-patient has shown some clinical improvement and will continue with the Zosyn 3.37 mg every 8 hours, possible plan for repeat CT tomorrow to follow-up on the abscess Time with Patient: Less than 30
--- NOTE | 2022-11-01 15:41 | P.PN ---
Subjective Progress Note Date: 11/01/22 Hospital course: Patient is a very pleasant 57-year-old male with a past medical history of coronary artery disease with previous SD and stent placement in October 2021, cervical DJD, asthma, hypertension, and hypothyroidism. He initially presented to [facility] emergency room with complaints of abdominal discomfort on 10/21/22. Patient reports that his symptoms started approximately 4-5 days previously with primarily left-sided abdominal discomfort which has been radiating throughout the abdomen. Reports that his symptoms worsened over the past 24 hours and prompted him to come to the emergency room. At [facility], CT abdomen and pelvis was completed which reportedly revealed findings consistent with acute diverticulitis with micro perforation and possible early abscess formation. Patient was transferred to our facility for admission and evaluation by general surgeon. Upon arrival to our facility, labs were completed and reviewed. CBC unremarkable. Coags normal findings. BMP showing mild hyponatremia with sodium 134, hypochloremia with chloride 97, and hypocarbia with bicarb of 21. Glucose 183. Liver enzymes unremarkable. Urinalysis negative for infection. EKG was completed showing sinus tachycardia at 102 bpm with T-wave inversion in inferior lead [address] abnormalities upon personal review and interpretation.. Patient was started on IV fluid hydration along with IV antibiotics Flagyl and Rocephin and admitted under our services with consultation to general surgery. Repeat CT abdomen and pelvis was completed 10/26/22 showing redemonstration of perforated sigmoid diverticulitis with adjacent gas and air fluid collection measuring up to 7.5 cm just superior to this region a fluid component concerning for developing abscess with similar foci of gas stranding extending superiorly to the collection. Infectious disease consulted at this time. Physical examination:. General: non toxic, no distress, appears at stated age Derm: warm, dry Head: atraumatic, normocephalic, symmetric Eyes: EOMI, no lid lag, anicteric sclera Mouth: no lip lesion, mucus membranes moist Cardiovascular: S1S2 reg, no murmur, positive posterior tibial pulse bilateral, Lungs: CTA bilateral, no rhonchi, no rales , no accessory muscle use Abdominal: Right lower quadrant tenderness upon palpation, soft and distended. Ext: no gross muscle atrophy, no edema, no contractures Neuro: CN II-XI grossly intact, no focal neuro deficits Psych: Alert, oriented, appropriate affect Assessment and plan of care: Acute diverticulitis with 7.5 cm Abscess Hypovolemic Hyponatremia, resolved -Continue IV antibiotics with Zosyn 3.375 g every 8 hours -Gen. surgery following, reviewed documentation in chart likely repeat CT tomorrow to follow-up on abscess. -Patient to continue with full liquid diet -Continue with symptomatic care and pain management. -Patient has been tolerating full liquid diet and currently receiving TPN. IV fluids discontinued at this time. -Blood cultures negative. -Infectious disease following, discussed plan of care with infectious disease physician recommending continuation of Zosyn with repeat CT tomorrow Hyperglycemia, hemoglobin A1c 7% Resulting in newly diagnosed type 2 diabetes mellitus. -Continue with glycemic protocol with NovoLog sliding scale. -Will plan to discharge patient home on metformin 500 mg twice a day. -Consult placed to case management for ordering and assistance obtaining of diabetic supplies. Hypertensive urgency, blood pressure is much better controlled -Patient blood pressure is much better today at 126/82 and heart rate of 88. -Pain better controlled with a Dilaudid BATCH STILL OPERATOR pump, continue with 4mg morphine IV q4h PRN for breakthrough pain -Continue Nifedipine 60mg BID, lisinopril 40 mg daily, metoprolol 50 mg daily, and hydralazine 25 mg twice daily. -Continue Clonidine 0.2mg TID as needed for systolic pressure > 180 and/or diastolic pressure > 110. Patient has not required a dose of PRN clonidine since 10/28/22 Hyperlipidemia -Continue daily medication regimen with atorvastatin 80 mg daily. Hypothyroidism -Continue daily medication regimen with levothyroxine 100 g daily. Imaging: -No new imaging completed for review. Data Review: -Blood cultures negative. -Vital signs reviewed. Blood pressure 126/82, heart rate 88, respiratory rate 19, temp 98.0F, and SpO2 of 94% on room air. -Morning labs reviewed. CBC unremarkable with WBC count stable at 6.7. BMP unremarkable with the exception of mildly elevated glucose of 148. Liver profile showing normal findings. Magnesium also normal findings at 1.8. CODE STATUS: Full Code DVT prophylaxis: Heparin Anticipated discharge: Clinical course to determine Anticipated discharge place: Home Patient was seen independently by Nurse Pracitioner. This document was prepared using [employer] dictation software. Please allow for errors in patient information coordinator, while rare they do occur. I reviewed the documentation as provided by the DON above, who is the original author of this note. I agree with the documented assessment and plan, with the following changes: none Objective - Vital Signs Vital signs: Vital Signs Temp 98 F 11/01/22 00:23 Pulse 88 11/01/22 08:00 Resp 19 11/01/22 08:00 BP 126/82 11/01/22 08:00 Pulse Ox 94 L 11/01/22 08:00 FiO2 Intake & Output 10/31/22 11/01/22 11/01/22 18:59 06:59 18:59 Intake Total 540 Output Total 1 Balance 540 -1 Weight 146.992 kg 146.5 kg Intake: Oral 540 Output: Urine 1 Other: Voiding Method Toilet # Voids 3 - Labs CBC & Chem 7: 11/07/22 04:38 11/07/22 04:38 Labs: Abnormal Lab Results - Last 24 Hours (Table) 10/31/22 10/31/22 11/01/22 Range/Units 11:17 16:26 00:22 POC Glucose (mg/dL) 120 H 122 H 127 H (70-110) mg/dL 11/01/22 Range/Units 06:01 POC Glucose (mg/dL) 138 H (70-110) mg/dL
[2022-11-01] MEDS: 1: MVI, ADULT NO.4 WITH VIT K 10 ML, TRACE (CONC-1ML/DOSE) 1 ML in AMINO ACID 5%-D20W+LY IV SCH ×3 (16:30)
[2022-11-01 17:08] LABS: Glucose,Whole Blood 125 mg/dL (70-110)
[2022-11-01 23:57] LABS: Glucose,Whole Blood 143 mg/dL (70-110)
[2022-11-02] MEDS: PIPERACILLIN-TAZOBACTAM 3.375 GM in SODIUM CHLORIDE 0.9% 100 ML IVPB SCH ×3 (00:10→16:15)
[2022-11-02] MEDS: LORazepam 2 MG/ML INJ IV PRN ×4 (00:10→18:43)
[2022-11-02] MEDS: HEPARIN SODIUM,PORCINE/PF 5,000 UNIT/0.5 ML SYRINGE SQ SCH ×3 (00:11→16:06)
[2022-11-02] MEDS: INSULIN ASPART (NovoLOG) 100 UNIT/ML VIAL SQ SCH ×4 (00:16→18:55)
[2022-11-02] MEDS: 1: MVI, ADULT NO.4 WITH VIT K 10 ML, TRACE (CONC-1ML/DOSE) 1 ML in AMINO ACID 5%-D20W+LY IV SCH ×9 (05:41→18:50)
[2022-11-02] MEDS: LEVOTHYROXINE 100 MCG TAB PO SCH (05:45)
[2022-11-02 05:58] LABS: Glucose,Whole Blood 137 mg/dL (70-110)
[2022-11-02] MEDS: METOPROLOL SUCCINATE (ER) 50 MG TAB.ER.24H PO SCH (07:59)
[2022-11-02] MEDS: ATORVASTATIN 80 MG TAB PO SCH (07:59)
[2022-11-02] MEDS: lisinopriL 20 MG TAB PO SCH (07:59)
[2022-11-02] MEDS: hydrALAZINE HCL 25 MG TAB PO SCH ×2 (07:59→20:43)
[2022-11-02] MEDS: ALBUTEROL HFA INHALER INHALATION PRN (09:02)
[2022-11-02 11:19] LABS: BUN/Creat Ratio 8.86 Ratio (12.00-20.00); Blood Urea Nitrogen 6.2 mg/dL (9.0-27.0); Calcium 8.3 mg/dL (8.7-10.3); Carbon Dioxide 25.2 mmol/L (21.6-31.8); Chloride 104 mmol/L (96-109); Glucose 142 mg/dL (70-110); Magnesium 1.9 mg/dL (1.5-2.4); Phosphorus 3.6 mg/dL (2.4-5.1); Potassium 3.9 mmol/L (3.5-5.5); Sodium 139 mmol/L (135-145)
--- NOTE | 2022-11-02 11:55 | P.PN ---
Subjective Progress Note Date: 11/02/22 CHIEF COMPLAINT: Ruptured diverticulitis HISTORY OF PRESENT ILLNESS: Patient admitted to the hospital with acute diverticulitis with microperforation and abscess. Patient remains on IV antibiotics. She is now requiring a HOSE TURNER pump to help control his lower abdominal pain. He does report overall pain is starting to decrease. Does report having relief in the lower abdominal pain after a bowel movement. His stools have had black pieces. He denies any pain after eating is currently on a full liquid diet. He does report that her appetite is still diminished. Pain with movement is also slowly better. Afebrile. WBC 6.7. Blood pressures shown improvement PHYSICAL EXAM: VITAL SIGNS: Reviewed GENERAL: Well-developed in no acute distress. HEENT: No sclera icterus. Extraocular movements grossly intact. Moist buccal mucosa. Head is atraumatic, normocephalic. Hears conversational speech. No nasal drainage. NECK: Supple without lymphadenopathy. CHEST: Non-labored respirations and equal bilateral excursions. CARDIOVASCULAR: Palpable 2+ radial pulses. ABDOMEN: Soft. Nondistended. Tenderness with palpation in the suprapubic, left lower quadrant and right lower quadrant. No evidence of peritonitis MUSCULOSKELETAL: No clubbing or cyanosis. NEUROLOGIC: No focal or lateralizing signs. Cranial nerves II through XII grossly intact. PSYCH: Appropriate affect. Alert and oriented to person, place and time. SKIN: Well perfused. Good skin turgor. ASSESSMENT: 1. Acute diverticulitis with microperforation and abscess 2. Hypertension with uncontrolled blood pressure PLAN: -Continue IV antibiotics -Consults interventional radiology for drainage of diverticular abscess -Continue pain management -Continue TPN for nutrition support -Continue supportive care -Continue full liquid diet -DVT prophylaxis subcu heparin Physician Radiological Metallurgist note has been reviewed by physician. Signing provider agrees with the documented findings, assessment, and plan of care. Objective - Vital Signs Vital signs: Vital Signs Temp 97.8 F 11/02/22 01:29 Pulse 78 11/02/22 01:29 Resp 19 11/02/22 01:29 BP 115/69 11/02/22 01:29 Pulse Ox 94 L 11/02/22 09:02 FiO2 Intake & Output 11/01/22 11/02/22 11/02/22 18:59 06:59 18:59 Intake Total 1080 1011 Output Total 2 Balance 1078 1011 Weight 147.5 kg Intake: Intake, IV Titration 1011 Amount Mvi, Adult No.4 with Vit 1011 K 10 ml Trace (Conc-1Ml/ Dose) 1 ml In Amino Acid 5%-D20w+Lytes*E* 1,000 ml @ 80 mls/hr IV .BY DURATION TANJA Rx#: [id number] Oral 1080 Output: Urine 2 Other: # Voids 4 2 - Labs CBC & Chem 7: 11/01/22 08:25 11/02/22 06:35 Labs: Abnormal Lab Results - Last 24 Hours (Table) 11/01/22 11/01/22 11/01/22 Range/Units 08:25 11:45 17:07 Sodium 136 L (137-145) mmol/L BUN 4 L (9-20) mg/dL Glucose 148 H (74-99) mg/dL POC Glucose (mg/dL) 124 H 125 H (70-110) mg/dL Calcium 8.2 L (8.4-10.2) mg/dL Total Protein 6.1 L (6.3-8.2) g/dL Albumin 3.0 L (3.5-5.0) g/dL 11/01/22 11/02/22 Range/Units 23:55 05:56 Sodium (137-145) mmol/L BUN (9-20) mg/dL Glucose (74-99) mg/dL POC Glucose (mg/dL) 143 H 137 H (70-110) mg/dL Calcium (8.4-10.2) mg/dL Total Protein (6.3-8.2) g/dL Albumin (3.5-5.0) g/dL
[2022-11-02 11:56] LABS: Glucose,Whole Blood 137 mg/dL (70-110)
--- NOTE | 2022-11-02 13:03 | P.CON ---
Consult Note - . Consult date: 11/02/22 Assessment/Plan:: Case has previously been discussed with surgery. Apparently and second consult requested. There is no new imaging from Monday Deanne diverticular collection is largely air on most recent CT with no established wall for drainage catheter insertion..
[2022-11-02] MEDS: IOPAMIDOL CONTRAST (ORAL USE) VIAL PO PRN ×2 (16:15→17:23)
[2022-11-02] MEDS: HYDROmorphone PCA 10 MG/50 ML BAG IV PRN (16:29)
--- NOTE | 2022-11-02 16:43 | P.PN ---
Subjective Progress Note Date: 11/02/22 Principal diagnosis: Perforated diverticulitis with abscess Patient is a 57-year-old male presenting to the hospital on 10/22/2022 for evaluation of abdominal pain that has been going on for about 4 to 5 days before presentation to the hospital pain was mostly in the left abdominal area , patient did have a CT with evidence of diverticulitis and abscess repeat CAT scan completed on 10/26/2022 diverticulitis and abscess. On today's evaluation that is 11/02/2022, the patient remains to be afebrile, the patient abdominal pain is currently controlled , the patient denies having any nausea or vomiting , the patient denies chest pain shortness of breath or cough Objective - Vital Signs Vital signs: Vital Signs Temp 97.6 F 11/02/22 07:22 Pulse 82 11/02/22 07:22 Resp 17 11/02/22 07:22 BP 124/85 11/02/22 07:22 Pulse Ox 94 L 11/02/22 09:02 FiO2 Intake & Output 11/01/22 11/02/22 11/02/22 18:59 06:59 18:59 Intake Total 1080 1011 Output Total 2 Balance 1078 1011 Weight 147.5 kg Intake: Intake, IV Titration 1011 Amount Mvi, Adult No.4 with Vit 1011 K 10 ml Trace (Conc-1Ml/ Dose) 1 ml In Amino Acid 5%-D20w+Lytes*E* 1,000 ml @ 80 mls/hr IV .BY DURATION [facility] Rx#: [id number] Oral 1080 Output: Urine 2 Other: Voiding Method Toilet # Voids 4 2 - Exam GENERAL DESCRIPTION: Middle-aged male lying in bed in no distress RESPIRATORY SYSTEM: Unlabored breathing , decreased breath sounds at bases HEART: S1 S2 regular rate and rhythm , ABDOMEN: Soft , mild distention and tenderness EXTREMITIES: No edema feet - Labs CBC & Chem 7: 11/01/22 08:25 11/02/22 06:35 Labs: Abnormal Lab Results - Last 24 Hours (Table) 11/01/22 11/01/22 11/02/22 Range/Units 17:07 23:55 05:56 BUN (9.0-27.0) mg/dL BUN/Creatinine Ratio (12.00-20.00) Ratio Glucose (70-110) mg/dL POC Glucose (mg/dL) 125 H 143 H 137 H (70-110) mg/dL Calcium (8.7-10.3) mg/dL 11/02/22 11/02/22 Range/Units 06:35 11:51 BUN 6.2 L (9.0-27.0) mg/dL BUN/Creatinine Ratio 8.86 L (12.00-20.00) Ratio Glucose 142 H (70-110) mg/dL POC Glucose (mg/dL) 137 H (70-110) mg/dL Calcium 8.3 L (8.7-10.3) mg/dL Assessment and Plan (1) Diverticulitis of intestine, part unspecified, with perforation and abscess without bleeding Current Visit: Yes Status: Acute Code(s): K57.80 - DVTRCLI OF INTEST, PART UNSP, W PERF AND ABSCESS W/O BLEED SNOMED Code(s): 039511135 Plan: 1patient was in the hospital abdominal pain and this patient has been diagnosed with a perforated diverticulitis and concerning for abscess formation likely from enteric gram-negative both aerobes and anaerobes patient is reporting some improvement in his symptoms he is afebrile and white count is normal 2-patient has shown some clinical improvement and will continue with the Zosyn 3.37 mg every 8 hours, IR has evaluated the CT and recommending no IR drainage will benefit from repeat CT discussed with the surgical CHARGE ENTRY SPECIALIST Time with Patient: Less than 30
[2022-11-02 17:22] LABS: Glucose,Whole Blood 126 mg/dL (70-110)
--- NOTE | 2022-11-02 18:00 | CT ---
EXAMINATION TYPE: CT abdomen pelvis w con CT DLP: 3924.8 mGycm, Automated exposure control for dose reduction was used. DATE OF EXAM: 11/02/2022 5:53 PM COMPARISON: 10/26/2022 CLINICAL INDICATION:Male, 57 years old with history of abdominal pain, diverticular abscess; abdomina l pain TECHNIQUE: Axial CT of the abdomen and pelvis. Sagittal and coronal reformats were created on a [employer] workstation. Contrast used:100 mL of Isovue 300 with IV Contrast, (none if empty) Oral contrast used: with Oral Contrast (none if empty) FINDINGS: Evaluation is limited due to lack of IV contrast. LOWER CHEST: Left lower lobe linear scarring and/or atelectasis. ABDOMEN LIVER: Diffusely hypoattenuating parenchyma. Focal fatty sparing around the gallbladder. GALLBLADDER AND BILE DUCTS: Unremarkable. PANCREAS: Unremarkable noncontrast appearance. SPLEEN: Unremarkable noncontrast appearance. ADRENAL GLANDS: Unremarkable noncontrast appearance. KIDNEYS AND URETERS: No evidence of hydronephrosis or renal calculus. Nonspecific bilateral perinephr ic fat stranding . PELVIS BLADDER: Unremarkable REPRODUCTIVE: Unremarkable. ABDOMEN & PELVIS STOMACH AND BOWEL: Stomach and duodenum are unremarkable. Sigmoid diverticula with decreased surround ing inflammatory change from prior examination. There is redemonstration of a gas and fluid collectio n superior to the sigmoid colon measuring grossly 7.3 x 6.8 cm with more fluid on today's exam. There are additional similar foci of gas tracking superiorly. Surrounding inflammatory changes is mildly d ecreased. The appendix is within normal limits. Enteric contrast reaches the descending colon. No adeel dence of bowel obstruction. PERITONEUM: No evidence of free fluid. VASCULATURE: Mild atherosclerotic calcifications are present throughout the abdominal aorta and its b ranches. No evidence of aortic aneurysm. MUSCULOSKELETAL: No acute osseous abnormalities. Mild disc degeneration changes are present throughou t the thoracolumbar spine. LYMPH NODES: No gross evidence for lymphadenopathy. SOFT TISSUE/ABDOMINAL WALL: Few foci of stranding and gas with anterior abdominal wall likely from me dication injection. IMPRESSION: 1. Redemonstration of perforated sigmoid diverticulitis with adjacent gas and air-fluid collection m easuring up to 7.3 x 6.8 cm just superior to this region with increased fluid within the suggestive a bscess. 2. Hepatic steatosis.
--- NOTE | 2022-11-02 19:00 | P.PN ---
Subjective Progress Note Date: 11/02/22 Hospital course: Patient is a very pleasant 57-year-old male with a past medical history of coronary artery disease with previous DC and stent placement in October 2021, cervical DJD, asthma, hypertension, and hypothyroidism. He initially presented to [facility] emergency room with complaints of abdominal discomfort on 10/21/22. Patient reports that his symptoms started approximately 4-5 days previously with primarily left-sided abdominal discomfort which has been radiating throughout the abdomen. Reports that his symptoms worsened over the past 24 hours and prompted him to come to the emergency room. At [facility], CT abdomen and pelvis was completed which reportedly revealed findings consistent with acute diverticulitis with micro perforation and possible early abscess formation. Patient was transferred to our facility for admission and evaluation by general surgeon. Upon arrival to our facility, labs were completed and reviewed. CBC unremarkable. Coags normal findings. BMP showing mild hyponatremia with sodium 134, hypochloremia with chloride 97, and hypocarbia with bicarb of 21. Glucose 183. Liver enzymes unremarkable. Urinalysis negative for infection. EKG was completed showing sinus tachycardia at 102 bpm with T-wave inversion in inferior lead [address] abnormalities upon personal review and interpretation.. Patient was started on IV fluid hydration along with IV antibiotics Flagyl and Rocephin and admitted under our services with consultation to general surgery. Repeat CT abdomen and pelvis was completed 10/26/22 showing redemonstration of perforated sigmoid diverticulitis with adjacent gas and air fluid collection measuring up to 7.5 cm just superior to this region a fluid component concerning for developing abscess with similar foci of gas stranding extending superiorly to the collection. Infectious disease consulted at this time. Physical examination:. General: non toxic, no distress, appears at stated age Derm: warm, dry Head: atraumatic, normocephalic, symmetric Eyes: EOMI, no lid lag, anicteric sclera Mouth: no lip lesion, mucus membranes moist Cardiovascular: S1S2 reg, no murmur, positive posterior tibial pulse bilateral, Lungs: CTA bilateral, no rhonchi, no rales , no accessory muscle use Abdominal: Right lower quadrant tenderness upon palpation, soft and distended. Ext: no gross muscle atrophy, no edema, no contractures Neuro: CN II-XI grossly intact, no focal neuro deficits Psych: Alert, oriented, appropriate affect Assessment and plan of care: Acute diverticulitis with 7.5 cm Abscess Hypovolemic Hyponatremia, resolved -Continue IV antibiotics with Zosyn 3.375 g every 8 hours -Gen. surgery following, reviewed documentation in chart. -CT abdomen and pelvis repeated showing redemonstration of perforated sigmoid diverticulitis with adjacent gas and air fluid collection measuring up to 7.3 x 6.8 cm concerning for abscess -Gen. surgery place consult to interventional radiology for possible drainage catheter insertion -Diet per general surgery, patient currently remains on full liquid diet -Continue with symptomatic care and pain management. -Patient has been tolerating full liquid diet and currently receiving TPN. -Blood cultures negative. -Infectious disease following, discussed plan of care with infectious disease physician recommending continuation of Zosyn. Hyperglycemia, hemoglobin A1c 7% Resulting in newly diagnosed type 2 diabetes mellitus. -Continue with glycemic protocol with NovoLog sliding scale. -Will plan to discharge patient home on metformin 500 mg twice a day. -Consult placed to case management for ordering and assistance obtaining of diabetic supplies. Hypertensive urgency, blood pressure is much better controlled -Patient blood pressure remains controlled with blood pressure 124/85, heart rate 82, respiratory rate 17, SpO2 of 93% on room air and temp 97.6F. -Pain better controlled with a Dilaudid FI[employer] MAN pump, continue with 4mg morphine IV q4h PRN for breakthrough pain -Continue Nifedipine 60mg BID, lisinopril 40 mg daily, metoprolol 50 mg daily, and hydralazine 25 mg twice daily. -Continue Clonidine 0.2mg TID as needed for systolic pressure > 180 and/or diastolic pressure > 110. Patient has not required a dose of PRN clonidine since 10/28/22 Hyperlipidemia -Continue daily medication regimen with atorvastatin 80 mg daily. Hypothyroidism -Continue daily medication regimen with levothyroxine 100 g daily. Imaging: -CT abdomen and pelvis repeated showing redemonstration of perforated sigmoid diverticulitis with adjacent gas and air fluid collection measuring up to 7.3 x 6.8 cm concerning for abscess Data Review: -Blood cultures negative. -Vital signs reviewed. blood pressure remains controlled with blood pressure 124/85, heart rate 82, respiratory rate 17, SpO2 of 93% on room air and temp 97.6F. -Morning labs reviewed. BMP unremarkable with sodium 139, potassium 3.9, chloride 104, and bicarbonate 25.2. Glucose elevated at 142. CODE STATUS: Full Code DVT prophylaxis: Heparin Anticipated discharge: Clinical course to determine Anticipated discharge place: Home Patient was seen independently by Nurse Pracitioner. This document was prepared using [employer] dictation software. Please allow for errors in controlled area checker, while rare they do occur. I reviewed the documentation as provided by the DON above, who is the original author of this note. I agree with the documented assessment and plan, with the following changes: none Objective - Vital Signs Vital signs: Vital Signs Temp 97.8 F 11/02/22 01:29 Pulse 78 11/02/22 01:29 Resp 19 11/02/22 01:29 BP 115/69 11/02/22 01:29 Pulse Ox 94 L 11/02/22 01:29 FiO2 Intake & Output 11/01/22 11/02/22 11/02/22 18:59 06:59 18:59 Intake Total 1080 1011 Output Total 2 Balance 1078 1011 Weight 147.5 kg Intake: Intake, IV Titration 1011 Amount Mvi, Adult No.4 with Vit 1011 K 10 ml Trace (Conc-1Ml/ Dose) 1 ml In Amino Acid 5%-D20w+Lytes*E* 1,000 ml @ 80 mls/hr IV .BY DURATION [facility]ANJA Rx#: [id number] Oral 1080 Output: Urine 2 Other: # Voids 4 2 - Labs CBC & Chem 7: 11/07/22 04:38 11/07/22 04:38 Labs: Abnormal Lab Results - Last 24 Hours (Table) 11/01/22 11/01/22 11/01/22 Range/Units 08:25 11:45 17:07 Sodium 136 L (137-145) mmol/L BUN 4 L (9-20) mg/dL Glucose 148 H (74-99) mg/dL POC Glucose (mg/dL) 124 H 125 H (70-110) mg/dL Calcium 8.2 L (8.4-10.2) mg/dL Total Protein 6.1 L (6.3-8.2) g/dL Albumin 3.0 L (3.5-5.0) g/dL 11/01/22 11/02/22 Range/Units 23:55 05:56 Sodium (137-145) mmol/L BUN (9-20) mg/dL Glucose (74-99) mg/dL POC Glucose (mg/dL) 143 H 137 H (70-110) mg/dL Calcium (8.4-10.2) mg/dL Total Protein (6.3-8.2) g/dL Albumin (3.5-5.0) g/dL
[2022-11-02] MEDS: MELATONIN 3 MG TABLET PO PRN (21:59)
[2022-11-03 00:02] LABS: Glucose,Whole Blood 134 mg/dL (70-110)
[2022-11-03] MEDS: PIPERACILLIN-TAZOBACTAM 3.375 GM in SODIUM CHLORIDE 0.9% 100 ML IVPB SCH ×3 (00:42→15:24)
[2022-11-03] MEDS: HEPARIN SODIUM,PORCINE/PF 5,000 UNIT/0.5 ML SYRINGE SQ SCH ×3 (00:42→15:24)
[2022-11-03] MEDS: LORazepam 2 MG/ML INJ IV PRN ×4 (00:43→21:41)
[2022-11-03] MEDS: INSULIN ASPART (NovoLOG) 100 UNIT/ML VIAL SQ SCH ×4 (03:51→17:58)
[2022-11-03 05:58] LABS: Glucose,Whole Blood 125 mg/dL (70-110)
[2022-11-03] MEDS: 1: MVI, ADULT NO.4 WITH VIT K 10 ML, TRACE (CONC-1ML/DOSE) 1 ML in AMINO ACID 5%-D20W+LY IV SCH ×6 (06:50→19:25)
[2022-11-03] MEDS: LEVOTHYROXINE 100 MCG TAB PO SCH (06:58)
[2022-11-03] MEDS: ATORVASTATIN 80 MG TAB PO SCH (07:45)
[2022-11-03] MEDS: METOPROLOL SUCCINATE (ER) 50 MG TAB.ER.24H PO SCH (07:45)
[2022-11-03] MEDS: hydrALAZINE HCL 25 MG TAB PO SCH ×2 (07:45→21:42)
[2022-11-03] MEDS: lisinopriL 20 MG TAB PO SCH (07:45)
[2022-11-03] MEDS: ALBUTEROL HFA INHALER INHALATION PRN ×2 (08:32→21:44)
--- NOTE | 2022-11-03 11:05 | P.PN ---
Subjective Progress Note Date: 11/03/22 CHIEF COMPLAINT: Ruptured diverticulitis HISTORY OF PRESENT ILLNESS: Patient admitted to the hospital with acute diverticulitis with microperforation and abscess. Patient remains on IV antibiotics. Patient's computed tomography scan of and pelvis from yesterday shows redemonstration of perforated sigmoid diverticulitis with adjacent gas and air fluid collection measuring up to 7.3 x 6.8 cm just superior to this region with increased fluid within the suggestive abscess. Hepatic steatosis. She continues to have pain across the lower abdomen. Pain is less than on admission. Patient reports that the pain is occasionally sharp and has tightness. He does have relief of the pain after a bowel movement. Continues to have pain after movement. Patient reevaluated by IR service. IR service re-looked at the CAT scan and says that the abscess cannot be drained and that it would require surgical drainage. Afebrile. PHYSICAL EXAM: VITAL SIGNS: Reviewed GENERAL: Well-developed in no acute distress. HEENT: No sclera icterus. Extraocular movements grossly intact. Moist buccal mucosa. Head is atraumatic, normocephalic. Hears conversational speech. No nasal drainage. NECK: Supple without lymphadenopathy. CHEST: Non-labored respirations and equal bilateral excursions. CARDIOVASCULAR: Palpable 2+ radial pulses. ABDOMEN: Soft. Nondistended. Tenderness with palpation in the suprapubic, left lower quadrant and more so in right lower quadrant. No evidence of peritonitis MUSCULOSKELETAL: No clubbing or cyanosis. NEUROLOGIC: No focal or lateralizing signs. Cranial nerves II through XII grossly intact. PSYCH: Appropriate affect. Alert and oriented to person, place and time. SKIN: Well perfused. Good skin turgor. ASSESSMENT: 1. Acute diverticulitis with microperforation and abscess 2. Hypertension PLAN: -Patient scheduled for drainage of intra-abdominal abscess and possible colectomy tomorrow, 11/04/[address] Zamorano -Nothing by mouth after midnight -Continue IV antibiotics -Continue pain management -Continue TPN for nutrition support -DVT prophylaxis subcu heparin Physician Toe Stapler note has been reviewed by physician. Signing provider agrees with the documented findings, assessment, and plan of care. Objective - Vital Signs Vital signs: Vital Signs Temp 98.0 F 11/03/22 07:10 Pulse 78 11/03/22 07:10 Resp 15 11/03/22 07:10 BP 128/69 11/03/22 07:10 Pulse Ox 96 11/03/22 07:10 FiO2 Intake & Output 11/02/22 11/03/22 11/03/22 18:59 06:59 18:59 Weight 145 kg Other: Voiding Method Toilet # Voids 5 2 - Labs CBC & Chem 7: 11/01/22 08:25 11/03/22 06:36 Labs: Abnormal Lab Results - Last 24 Hours (Table) 11/02/22 11/02/22 11/02/22 Range/Units 06:35 11:51 17:13 BUN 6.2 L (9.0-27.0) mg/dL BUN/Creatinine Ratio 8.86 L (12.00-20.00) Ratio Glucose 142 H (70-110) mg/dL POC Glucose (mg/dL) 137 H 126 H (70-110) mg/dL Calcium 8.3 L (8.7-10.3) mg/dL 11/03/22 11/03/22 Range/Units 00:00 05:54 BUN (9.0-27.0) mg/dL BUN/Creatinine Ratio (12.00-20.00) Ratio Glucose (70-110) mg/dL POC Glucose (mg/dL) 134 H 125 H (70-110) mg/dL Calcium (8.7-10.3) mg/dL
[2022-11-03 11:40] LABS: Glucose,Whole Blood 131 mg/dL (70-110)
[2022-11-03 11:50] LABS: BUN/Creat Ratio 10.86 Ratio (12.00-20.00); Blood Urea Nitrogen 7.6 mg/dL (9.0-27.0); Calcium 8.5 mg/dL (8.7-10.3); Carbon Dioxide 25.9 mmol/L (21.6-31.8); Chloride 104 mmol/L (96-109); Glucose 155 mg/dL (70-110); Phosphorus 3.2 mg/dL (2.4-5.1); Potassium 4.2 mmol/L (3.5-5.5); Sodium 139 mmol/L (135-145)
[2022-11-03] MEDS: FAT EMULSION 20% 250 ML in EMPTY BAG 1 BAG IV SCH (11:56)
--- NOTE | 2022-11-03 14:54 | P.PN ---
Subjective Progress Note Date: 11/03/22 Hospital course: Patient is a very pleasant 57-year-old male with a past medical history of coronary artery disease with previous HI and stent placement in October 2021, cervical DJD, asthma, hypertension, and hypothyroidism. He initially presented to [facility] emergency room with complaints of abdominal discomfort on 10/21/22. Patient reports that his symptoms started approximately 4-5 days previously with primarily left-sided abdominal discomfort which has been radiating throughout the abdomen. Reports that his symptoms worsened over the past 24 hours and prompted him to come to the emergency room. At [facility], CT abdomen and pelvis was completed which reportedly revealed findings consistent with acute diverticulitis with micro perforation and possible early abscess formation. Patient was transferred to our facility for admission and evaluation by general surgeon. Upon arrival to our facility, labs were completed and reviewed. CBC unremarkable. Coags normal findings. BMP showing mild hyponatremia with sodium 134, hypochloremia with chloride 97, and hypocarbia with bicarb of 21. Glucose 183. Liver enzymes unremarkable. Urinalysis negative for infection. EKG was completed showing sinus tachycardia at 102 bpm with T-wave inversion in inferior lead [address] abnormalities upon personal review and interpretation.. Patient was started on IV fluid hydration along with IV antibiotics Flagyl and Rocephin and admitted under our services with consultation to general surgery. Repeat CT abdomen and pelvis was completed 10/26/22 showing redemonstration of perforated sigmoid diverticulitis with adjacent gas and air fluid collection measuring up to 7.5 cm just superior to this region a fluid component concerning for developing abscess with similar foci of gas stranding extending superiorly to the collection. Infectious disease consulted at this time. CT abdomen and pelvis again repeated on 11/02/22 showing redemonstration of perforated sigmoid diverticulitis with adjacent gas and air fluid collection measuring up to 7.3 x 6.8 cm concerning for abscess Physical examination:. General: non toxic, no distress, appears at stated age Derm: warm, dry Head: atraumatic, normocephalic, symmetric Eyes: EOMI, no lid lag, anicteric sclera Mouth: no lip lesion, mucus membranes moist Cardiovascular: S1S2 reg, no murmur, positive posterior tibial pulse bilateral, Lungs: CTA bilateral, no rhonchi, no rales , no accessory muscle use Abdominal: Right lower quadrant tenderness upon palpation, soft and distended. Ext: no gross muscle atrophy, no edema, no contractures Neuro: CN II-XI grossly intact, no focal neuro deficits Psych: Alert, oriented, appropriate affect Assessment and plan of care: Perforated acute sigmoid diverticulitis with 7.5 cm Abscess Hypovolemic Hyponatremia, resolved -Continue IV antibiotics with Zosyn 3.375 g every 8 hours -Gen. surgery following, Discussed with general surgery RN MANAGED CARE stating patient is going to be scheduled to undergo intra-abdominal abscess drainage with possible colectomy tomorrow with Dr. Zamorano. -Interventional radiology was consulted to evaluate for possible drainage catheter insertion, reviewed documentation in chart. Interventional radiology stating case discussed with surgery and the Diverticular collection is largely air on most recent CT with no established wall for drainage catheter insertion. -Continue with symptomatic care and pain management. -Patient has been tolerating full liquid diet and currently receiving TPN. Patient to be NPO at midnight. -Blood cultures negative. -Infectious disease following, discussed plan of care with infectious disease physician recommending continuation of Zosyn. Hyperglycemia, hemoglobin A1c 7% Resulting in newly diagnosed type 2 diabetes mellitus. -Continue with glycemic protocol with NovoLog sliding scale. -Will plan to discharge patient home on metformin 500 mg twice a day. -Consult placed to case management for ordering and assistance obtaining of diabetic supplies. Hypertensive urgency, blood pressure is much better controlled -Patient blood pressure remains controlled since starting patient on Dilaudid SOLAR POOL HEATING INSTALLER. Blood pressure 128/69, heart rate 78, respiratory rate 15, SpO2 96% on room air and temp 98.0F. -Pain better controlled with a Dilaudid SOLAR POOL HEATING INSTALLER pump, continue with 4mg morphine IV q4h PRN for breakthrough pain -Continue Nifedipine 60mg BID, lisinopril 40 mg daily, metoprolol 50 mg daily, and hydralazine 25 mg twice daily. -Continue Clonidine 0.2mg TID as needed for systolic pressure > 180 and/or diastolic pressure > 110. Patient has not required a dose of PRN clonidine since 10/28/22 Hyperlipidemia -Continue daily medication regimen with atorvastatin 80 mg daily. Hypothyroidism -Continue daily medication regimen with levothyroxine 100 g daily. Imaging: -No new imaging to review today. Data Review: -Blood cultures negative. -Vital signs reviewed. Blood pressure 128/69, heart rate 78, respiratory rate 15, SpO2 96% on room air and temp 98.0F.. -Morning labs reviewed. BMP remains unremarkable with sodium 139, potassium 4.2, bicarb 104, and anion gap of 9.10 CODE STATUS: Full Code DVT prophylaxis: Heparin Anticipated discharge: Clinical course to determine Anticipated discharge place: Home Patient was seen independently by Nurse Pracitioner. This document was prepared using [employer] dictation software. Please allow for errors in job service specialist, while rare they do occur. I reviewed the documentation as provided by the DON above, who is the original author of this note. I agree with the documented assessment and plan, with the following changes: none Objective - Vital Signs Vital signs: Vital Signs Temp 98.0 F 11/03/22 07:10 Pulse 78 11/03/22 07:10 Resp 15 11/03/22 07:10 BP 128/69 11/03/22 07:10 Pulse Ox 96 11/03/22 07:10 FiO2 Intake & Output 11/02/22 11/03/22 11/03/22 18:59 06:59 18:59 Weight 145 kg Other: Voiding Method Toilet # Voids 5 2 - Labs CBC & Chem 7: 11/07/22 04:38 11/07/22 04:38 Labs: Abnormal Lab Results - Last 24 Hours (Table) 11/02/22 11/02/22 11/02/22 Range/Units 06:35 11:51 17:13 BUN 6.2 L (9.0-27.0) mg/dL BUN/Creatinine Ratio 8.86 L (12.00-20.00) Ratio Glucose 142 H (70-110) mg/dL POC Glucose (mg/dL) 137 H 126 H (70-110) mg/dL Calcium 8.3 L (8.7-10.3) mg/dL 11/03/22 11/03/22 Range/Units 00:00 05:54 BUN (9.0-27.0) mg/dL BUN/Creatinine Ratio (12.00-20.00) Ratio Glucose (70-110) mg/dL POC Glucose (mg/dL) 134 H 125 H (70-110) mg/dL Calcium (8.7-10.3) mg/dL
[2022-11-03] MEDS: KETOROLAC 15 MG/ML 1 ML VIAL IVP SCH ×2 (15:23→21:42)
[2022-11-03 16:59] LABS: Glucose,Whole Blood 137 mg/dL (70-110)
[2022-11-03] MEDS: MELATONIN 3 MG TABLET PO PRN (21:42)
[2022-11-04] MEDS: HEPARIN SODIUM,PORCINE/PF 5,000 UNIT/0.5 ML SYRINGE SQ SCH ×4 (00:37→23:32)
[2022-11-04 00:39] LABS: Glucose,Whole Blood 149 mg/dL (70-110)
[2022-11-04] MEDS: PIPERACILLIN-TAZOBACTAM 3.375 GM in SODIUM CHLORIDE 0.9% 100 ML IVPB SCH ×4 (00:43→23:33)
[2022-11-04] MEDS: INSULIN ASPART (NovoLOG) 100 UNIT/ML VIAL SQ SCH ×4 (00:43→17:08)
[2022-11-04] MEDS: LORazepam 2 MG/ML INJ IV PRN ×4 (03:27→23:32)
[2022-11-04 06:23] LABS: Glucose,Whole Blood 145 mg/dL (70-110)
[2022-11-04] MEDS: LEVOTHYROXINE 100 MCG TAB PO SCH (06:30)
[2022-11-04] MEDS: KETOROLAC 15 MG/ML 1 ML VIAL IVP SCH ×4 (06:30→23:32)
[2022-11-04] MEDS: 1: MVI, ADULT NO.4 WITH VIT K 10 ML, TRACE (CONC-1ML/DOSE) 1 ML in AMINO ACID 5%-D20W+LY IV SCH ×6 (07:09→20:10)
--- NOTE | 2022-11-04 07:58 | P.PN ---
Subjective Progress Note Date: 11/04/22 CHIEF COMPLAINT: Perforated, complicated diverticulitis HISTORY OF PRESENT ILLNESS: The patient is a 57-year-old male admitted with complicated diverticulitis. Multiple CT images were obtained demonstrating now organized abscess of the pelvis. Initial interventional radiology consultation for drainage requested however not amenable due to location. Surgical drainage was advised. Patient still complains of abdominal pain however somewhat improved. He is having bowel movements. He is on TPN. ROS: No fevers or chills. No new chest pain. No productive sputum PHYSICAL EXAM: VITAL SIGNS: Reviewed CONSTITUTIONAL: Well developed and in no acute distress. EYES: Conjuctivae without sclera icterus. Extraocular movements grossly intact. HEAD, EARS, NOSE, THROAT: Moist buccal mucosa. Head is atraumatic, normocephalic. Hears conversational speech. No nasal drainage. RESPIRATORY: Non-labored respirations and equal bilateral excursions. CARDIOVASCULAR: Palpable 2+ radial pulses. ABDOMEN: Obese, tender pelvis, left lower quadrant suprapubic. MUSCULOSKELETAL: No gross deformity of the lower extremities noted. No clubbing. No cyanosis. SKIN: Good skin turgor. Well perfused. NEUROLOGIC: Cranial nerves II through XII grossly intact. No focal or lateralizing signs. PSYCH: Appropriate affect. Alert and oriented to person, place and time. CLINICAL LABS: Reviewed. WBC 6.7 on 11/01/2022. Current labs pending. ASSESSMENT: 1. Perforated diverticulitis with peritonitis PLAN: 1. Due to large size of pelvic abscess, surgical drainage advised. 2. Continue IV antibiotics Objective - Vital Signs Vital signs: Vital Signs Temp 98.2 F 11/04/22 07:09 Pulse 80 11/04/22 07:09 Resp 16 11/04/22 07:09 BP 103/67 11/04/22 07:09 Pulse Ox 96 11/04/22 07:09 FiO2 Intake & Output 11/03/22 11/04/22 11/04/22 18:59 06:59 18:59 Intake Total 1011 1000 Balance 1011 1000 Weight 145 kg 145.1 kg Intake: Intake, IV Titration 1011 1000 Amount Amino Acid 5%-D20w+Lytes* 1000 E* 1,000 ml @ 80 mls/hr IV .BY DURATION TANJA Rx#: [id number] Mvi, Adult No.4 with Vit 1011 K 10 ml Trace (Conc-1Ml/ Dose) 1 ml In Amino Acid 5%-D20w+Lytes*E* 1,000 ml @ 80 mls/hr IV .BY DURATION TANJA Rx#: [id number] Other: # Voids 4 3 - Labs CBC & Chem 7: 11/01/22 08:25 11/03/22 06:36 Labs: Abnormal Lab Results - Last 24 Hours (Table) 11/03/22 11/03/22 11/03/22 Range/Units 06:36 11:39 16:58 BUN 7.6 L (9.0-27.0) mg/dL BUN/Creatinine Ratio 10.86 L (12.00-20.00) Ratio Glucose 155 H (70-110) mg/dL POC Glucose (mg/dL) 131 H 137 H (70-110) mg/dL Calcium 8.5 L (8.7-10.3) mg/dL 11/04/22 11/04/22 Range/Units 00:38 06:22 BUN (9.0-27.0) mg/dL BUN/Creatinine Ratio (12.00-20.00) Ratio Glucose (70-110) mg/dL POC Glucose (mg/dL) 149 H 145 H (70-110) mg/dL Calcium (8.7-10.3) mg/dL
[2022-11-04 08:05] LABS: ALT 32 U/L (4-49); AST 29 U/L (17-59); African American GFR (CKD) >90 (>60 ml/min/1.73 sqM); Albumin 2.9 g/dL (3.5-5.0); Alkaline Phosphatase 50 U/L (38-126); Anion Gap 5 mmol/L; Blood Urea Nitrogen 10 mg/dL (9-20); Calcium 8.1 mg/dL (8.4-10.2); Carbon Dioxide 28 mmol/L (22-30); Chloride 102 mmol/L (98-107); Globulin 2.9 g/dL; Glucose 141 mg/dL (74-99); Magnesium 1.9 mg/dL (1.6-2.3); Non-African American GFR(CKD) >90 (>60 ml/min/1.73 sqM); Phosphorus 3.8 mg/dL (2.5-4.5); Potassium 4.3 mmol/L (3.5-5.1); Sodium 135 mmol/L (137-145); Total Bilirubin 0.3 mg/dL (0.2-1.3); Total Protein 5.8 g/dL (6.3-8.2)
[2022-11-04 08:09] LABS: Basophils % (A) 1 %; Eosinophils # (A) 0.3 k/uL (0-0.7); Eosinophils % (A) 6 %; HCT 35.1 % (39.0-53.0); HGB 11.6 gm/dL (13.0-17.5); Lymphocytes # (A) 2.4 k/uL (1.0-4.8); Lymphocytes % (A) 46 %; MCH 29.1 pg (25.0-35.0); MCV 88.1 fL (80.0-100.0); Mean Platelet Volume 7.5; Monocytes # (A) 0.5 k/uL (0-1.0); Monocytes % (A) 9 %; Neutrophils # (A) 1.9 k/uL (1.3-7.7); Neutrophils % (A) 37 %; Platelet Count 331 k/uL (150-450); RBC 3.98 m/uL (4.30-5.90); RDW 15.2 % (11.5-15.5); WBC 5.2 k/uL (3.8-10.6)
[2022-11-04] MEDS ORDERED: SODIUM CHLORIDE 0.9% 1,000 ML IV ONE ×2 (08:10→10:47)
[2022-11-04] MEDS ORDERED: ONDANSETRON 4 MG/2 ML VIAL IVP ONE (08:24)
[2022-11-04] MEDS ORDERED: DEXAMETHASONE SOD PHOSPHATE 4 MG/ML 1 ML VIAL IVP ONE (08:24)
[2022-11-04] MEDS ORDERED: NEOSTIGMINE 1 MG/ML 10 ML VIAL ONE (08:29)
[2022-11-04] MEDS ORDERED: ROCURONIUM 10 MG/ML (5 ML VIAL) IV ONE (08:29)
[2022-11-04] MEDS ORDERED: MIDAZOLAM 2 MG/2 ML VIAL ONE (08:29)
[2022-11-04] MEDS ORDERED: SUCCINYLCHOLINE CHLORIDE 200 MG/10 ML VIAL IV ONE (08:29)
[2022-11-04] MEDS ORDERED: PROPOFOL 10 MG/ML 20 ML VIAL IV ONE (08:29)
[2022-11-04] MEDS ORDERED: GLYCOPYRROLATE 0.2 MG/ML 2 ML VIAL ONE (08:29)
[2022-11-04] MEDS ORDERED: fentaNYL (PF) 50 MCG/ML 2 ML AMP ONE (08:29)
[2022-11-04] MEDS ORDERED: LIDOCAINE 2% INJ 20 MG/ML (2 ML VIAL) ONE (08:29)
[2022-11-04] MEDS ORDERED: LIDOCAINE 1%-EPI 1:100,000 20 ML VIAL SQ ONE (09:26)
[2022-11-04] MEDS ORDERED: HYDROmorphone 0.5 MG/0.5 ML SYRINGE IVP ONE (10:44)
[2022-11-04] MEDS ORDERED: HYDROmorphone 1 MG/ML 1 ML SYRINGE IVP PRN (10:58)
--- NOTE | 2022-11-04 11:18 | P.OP ---
Date of Procedure: 11/04/22 Description of Procedure: SURGEON: REBECA GAINES MD PREOPERATIVE DIAGNOSES: 1. Perforated complicated sigmoid diverticulitis with contained pelvic abscess 2. Morbid obesity due to excess calories, BMI 43.4 3. Hypertensive heart disease 4. Hyperlipidemia 5. Hypothyroidism 6. Asthma 7. Gastroesophageal reflux disease POSTOPERATIVE DIAGNOSES: 1. Perforated complicated sigmoid diverticulitis with contained pelvic abscess 2. Morbid obesity due to excess calories, BMI 43.4 3. Hypertensive heart disease 4. Hyperlipidemia 5. Hypothyroidism 6. Asthma 7. Gastroesophageal reflux disease OPERATION: 1. Robotic-assisted daVinci Xi laparoscopic lysis of adhesions Anesthesia: GETA, local Estimated Blood Loss (ml): 5 Pathology: Anaerobic and aerobic culture peritoneal fluid Condition: stable Disposition: floor COMPLICATIONS: None. Operative Findings: 1. Pelvic adhesions with lysis of adhesions performed 2. New right inguinal hernia, indirect without obstruction 3. Contained pelvic abscess not amenable to drainage due to thick/concrete adhesions 4. Cultures obtained of the peritoneal fluid pelvis INDICATIONS: The patient is a 57-year-old male who presented with perforated diverticulitis. Patient treated with IV antibiotics with contained pelvic abscess. Interventional radiology consultations for drainage of pelvic abscess was obtained however not amenable to dilatation. Surgical drainage was described. Benefits and risks were discussed at length. Informed consent was obtained. All questions of the patient and family were answered. DESCRIPTION: The patient was brought into the operating room in supine position. Gen. anesthetic was induced. The abdomen was then prepped and draped in standard sterile fashion as Ioban was placed along the abdomen to minimize any contamination of skin floor. After a timeout protocol was performed, attention was then brought to the left upper quadrant whereby a 0 degree 5 mm laparoscopic trocar entry was performed. The abdominal cavity was entered and insufflated to 15 mmHg pressure, which was tolerated well. Diagnostic laparoscopy demonstrated moderate peritoneal adhesions due to recent diverticular rupture of the sigmoid colon. Next trocars were placed 20 cm superior from the pelvis. A 12-mm trocar was thong marianela along the right lateral abdominal wall. A 8 mm port was placed along the right upper quadrant. Ports were placed 10 cm apart from each other including 15-20 cm away from the target anatomy of the left pelvis. The 5-mm port was exchanged for an 8 mm robotic port. The stapler 12-mm port was arranged along the left lateral abdominal wall. The patient was then placed in Trendelenburg position, at least 16. The robotic da Checo XI system was primed. The robot was docked from the right side of the patient. Using atraumatic graspers and vessel sealer, the robotic system was docked and primed as described. Instruments were interchanged by the nursing home assistant administrator including hook cautery suction graphics software engineer and hook cautery . Next, attention was brought to identify the sigmoid colon. A large phlegmon of the pelvis was confirmed with extensive lysis of adhesions performed to release the sigmoid colon from the abdominal wall including interloop adhesions involving small bowel to sigmoid colon. Blunt dissection using graspers including sharp dissection using hook cautery was performed releasing the small bowel from the sigmoid colon. Multiple attempts were used to encounter of the pelvic abscess which was well contained very hard external capsule preventing further dissection and drainage of the contained pelvic abscess. No further gross contamination or diffuse contamination was identified of peritonitis. Sponge was used to extract peritoneal fluid and control for any mild bleeding. The robot was undocked. Next all pneumoperitoneum was evacuated from the abdominal cavity. The 8-mm trocar sites were reapproximated using 4-0 Monocryl in an interrupted subcuticular fashion. Local anesthetic was infiltrated to all wounds for postop analgesia. All incisions were also cleansed with diluted hydrogen peroxide. Exofin was applied to the rest of the skin incisions. The patient was extubated successfully. The patient was transferred to the postanesthesia care unit in stable condition.
[2022-11-04 11:38] LABS: Glucose,Whole Blood 194 mg/dL (70-110)
[2022-11-04] MEDS: HYDROmorphone PCA 10 MG/50 ML BAG IV PRN (12:08)
--- NOTE | 2022-11-04 12:26 | P.PN ---
Subjective Progress Note Date: 11/03/22 Principal diagnosis: Perforated diverticulitis with abscess Patient is a 57-year-old male presenting to the hospital on 10/22/2022 for evaluation of abdominal pain that has been going on for about 4 to 5 days before presentation to the hospital pain was mostly in the left abdominal area , patient did have a CT with evidence of diverticulitis and abscess repeat CAT scan completed on 10/26/2022 diverticulitis and abscess. On today's evaluation that is 11/03/2022, the patient continues to be afebrile, the patient abdominal pain is currently controlled with pain meds, the patient denies having any nausea or vomiting , the patient denies chest pain shortness of breath or cough Objective - Vital Signs Vital signs: Vital Signs Temp 98.0 F 11/03/22 07:10 Pulse 78 11/03/22 07:10 Resp 15 11/03/22 07:10 BP 128/69 11/03/22 07:10 Pulse Ox 96 11/03/22 07:10 FiO2 Intake & Output 11/02/22 11/03/22 11/03/22 18:59 06:59 18:59 Weight 145 kg Other: Voiding Method Toilet # Voids 5 2 - Exam GENERAL DESCRIPTION: Middle-aged male lying in bed in no distress RESPIRATORY SYSTEM: Unlabored breathing , decreased breath sounds at bases HEART: S1 S2 regular rate and rhythm , ABDOMEN: Soft , mild distention and tenderness EXTREMITIES: No edema feet - Labs CBC & Chem 7: 11/04/22 07:38 11/04/22 07:38 Labs: Abnormal Lab Results - Last 24 Hours (Table) 11/02/22 11/02/22 11/02/22 Range/Units 06:35 11:51 17:13 BUN 6.2 L (9.0-27.0) mg/dL BUN/Creatinine Ratio 8.86 L (12.00-20.00) Ratio Glucose 142 H (70-110) mg/dL POC Glucose (mg/dL) 137 H 126 H (70-110) mg/dL Calcium 8.3 L (8.7-10.3) mg/dL 11/03/22 11/03/22 Range/Units 00:00 05:54 BUN (9.0-27.0) mg/dL BUN/Creatinine Ratio (12.00-20.00) Ratio Glucose (70-110) mg/dL POC Glucose (mg/dL) 134 H 125 H (70-110) mg/dL Calcium (8.7-10.3) mg/dL Assessment and Plan (1) Diverticulitis of intestine, part unspecified, with perforation and abscess without bleeding Current Visit: Yes Status: Acute Code(s): K57.80 - DVTRCLI OF INTEST, PART UNSP, W PERF AND ABSCESS W/O BLEED SNOMED Code(s): 166891676 Plan: 1patient was in the hospital abdominal pain and this patient has been diagnosed with a perforated diverticulitis and concerning for abscess formation likely from enteric gram-negative both aerobes and anaerobes patient is reporting some improvement in his symptoms he is afebrile and white count is normal 2-repeat CT did show abscess , await IR vs surgical drainage and will continue with the Zosyn 3.37 mg every 8 hours Time with Patient: Less than 30
[2022-11-04 14:03] VITALS: BMI 43.4
[2022-11-04] MEDS: METOPROLOL SUCCINATE (ER) 50 MG TAB.ER.24H PO SCH (15:17)
[2022-11-04] MEDS: lisinopriL 20 MG TAB PO SCH (15:17)
[2022-11-04] MEDS: ATORVASTATIN 80 MG TAB PO SCH (15:17)
[2022-11-04] MEDS: hydrALAZINE HCL 25 MG TAB PO SCH ×2 (15:18→20:08)
[2022-11-04 16:21] LABS: Glucose,Whole Blood 184 mg/dL (70-110)
--- NOTE | 2022-11-04 17:48 | P.PN ---
Subjective Progress Note Date: 11/04/22 Principal diagnosis: Perforated diverticulitis with abscess Patient is a 57-year-old male presenting to the hospital on 10/22/2022 for evaluation of abdominal pain that has been going on for about 4 to 5 days before presentation to the hospital pain was mostly in the left abdominal area , patient did have a CT with evidence of diverticulitis and abscess repeat CAT scan completed on 10/26/2022 diverticulitis and abscess. patient was taken to the OR 11/04/2022 and the patient is status post robotic assisted laparoscopic lysis of adhesion and drainage of the abdominal abscess and cultures has been obtained On today's evaluation that is 11/04/2022 patient denies having any fever or chills he is breathing comfortably abdominal pain is currently controlled no nausea no vomiting and no diarrhea Objective - Vital Signs Vital signs: Vital Signs Temp 97.3 F L 11/04/22 10:17 Pulse 72 11/04/22 11:14 Resp 16 11/04/22 11:14 BP 122/72 11/04/22 11:14 Pulse Ox 96 11/04/22 11:14 FiO2 Intake & Output 11/03/22 11/04/22 11/04/22 18:59 06:59 18:59 Intake Total 1011 1000 1000 Output Total 5 Balance 1011 1000 995 Weight 145 kg 145.1 kg Intake: IV 1000 Intake, IV Titration 1011 1000 Amount Amino Acid 5%-D20w+Lytes* 1000 E* 1,000 ml @ 80 mls/hr IV .BY DURATION TANJA Rx#: [id number] Mvi, Adult No.4 with Vit 1011 K 10 ml Trace (Conc-1Ml/ Dose) 1 ml In Amino Acid 5%-D20w+Lytes*E* 1,000 ml @ 80 mls/hr IV .BY DURATION TANJA Rx#: [id number] Output: Estimated Blood Loss 5 Other: # Voids 4 3 - Exam GENERAL DESCRIPTION: Middle-aged male lying in bed in no distress RESPIRATORY SYSTEM: Unlabored breathing , decreased breath sounds at bases HEART: S1 S2 regular rate and rhythm , ABDOMEN: Soft , mild distention and tenderness EXTREMITIES: No edema feet - Labs CBC & Chem 7: 11/04/22 07:38 11/04/22 07:38 Labs: Abnormal Lab Results - Last 24 Hours (Table) 11/03/22 11/04/22 11/04/22 Range/Units 16:58 00:38 06:22 RBC (4.30-5.90) m/uL Hgb (13.0-17.5) gm/dL Hct (39.0-53.0) % Sodium (137-145) mmol/L Glucose (74-99) mg/dL POC Glucose (mg/dL) 137 H 149 H 145 H (70-110) mg/dL Calcium (8.4-10.2) mg/dL Total Protein (6.3-8.2) g/dL Albumin (3.5-5.0) g/dL 11/04/22 11/04/22 11/04/22 Range/Units 07:38 07:38 11:37 RBC 3.98 L (4.30-5.90) m/uL Hgb 11.6 L (13.0-17.5) gm/dL Hct 35.1 L (39.0-53.0) % Sodium 135 L (137-145) mmol/L Glucose 141 H (74-99) mg/dL POC Glucose (mg/dL) 194 H (70-110) mg/dL Calcium 8.1 L (8.4-10.2) mg/dL Total Protein 5.8 L (6.3-8.2) g/dL Albumin 2.9 L (3.5-5.0) g/dL Assessment and Plan (1) Diverticulitis of intestine, part unspecified, with perforation and abscess without bleeding Current Visit: Yes Status: Acute Code(s): K57.80 - DVTRCLI OF INTEST, PART UNSP, W PERF AND ABSCESS W/O BLEED SNOMED Code(s): 869562328 Plan: This was a telehealth visit 1patient was in the hospital abdominal pain and this patient has been diagnosed with a perforated diverticulitis and concerning for abscess formation likely from enteric gram-negative both aerobes and anaerobes patient is reporting some improvement in his symptoms he is afebrile and white count is normal 2-Patient is status post laparoscopic lysis of adhesion and drainage of the abscess culture has been obtained and those will be followed for now we will continue patient on Zosyn with the discharge antibiotics on the basis of final culture questions concerns were answered Time with Patient: Less than 30
--- NOTE | 2022-11-04 18:32 | P.PN ---
Subjective Progress Note Date: 11/04/22 Hospital course: Patient is a very pleasant 57-year-old male with a past medical history of coronary artery disease with previous [place] and stent placement in October 2021, cervical DJD, asthma, hypertension, and hypothyroidism. He initially presented to [facility] emergency room with complaints of abdominal discomfort on 10/21/22. Patient reports that his symptoms started approximately 4-5 days previously with primarily left-sided abdominal discomfort which has been radiating throughout the abdomen. Reports that his symptoms worsened over the past 24 hours and prompted him to come to the emergency room. At [facility], CT abdomen and pelvis was completed which reportedly revealed findings consistent with acute diverticulitis with micro perforation and possible early abscess formation. Patient was transferred to our facility for admission and evaluation by general surgeon. Upon arrival to our facility, labs were completed and reviewed. CBC unremarkable. Coags normal findings. BMP showing mild hyponatremia with sodium 134, hypochloremia with chloride 97, and hypocarbia with bicarb of 21. Glucose 183. Liver enzymes unremarkable. Urinalysis negative for infection. EKG was completed showing sinus tachycardia at 102 bpm with T-wave inversion in inferior lead [address] abnormalities upon personal review and interpretation.. Patient was started on IV fluid hydration along with IV antibiotics Flagyl and Rocephin and admitted under our services with consultation to general surgery. Repeat CT abdomen and pelvis was completed 10/26/22 showing redemonstration of perforated sigmoid diverticulitis with adjacent gas and air fluid collection measuring up to 7.5 cm just superior to this region a fluid component concerning for developing abscess with similar foci of gas stranding extending superiorly to the collection. Infectious disease consulted at this time. CT abdomen and pelvis again repeated on 11/02/22 showing redemonstration of perforated sigmoid diverticulitis with adjacent gas and air fluid collection measuring up to 7.3 x 6.8 cm concerning for abscess. Patient was taken to OR on 11/04/22 revealing perforated complicated sigmoid diverticulitis with contained pelvic abscess, patient underwent a robotic-assisted da Checo laparoscopic lysis of adhesions, per OMR documentation contained pelvic abscess was not amendable to drainage due to 6/concrete adhesions. Cultures were obtained of peritoneal fluid and pelvis and sent to lab for analysis. Patient to remain on IV antibiotics with Zosyn pending final culture and sensitivity report. Physical examination:. General: non toxic, no distress, appears at stated age Derm: warm, dry Head: atraumatic, normocephalic, symmetric Eyes: EOMI, no lid lag, anicteric sclera Mouth: no lip lesion, mucus membranes moist Cardiovascular: S1S2 reg, no murmur, positive posterior tibial pulse bilateral, Lungs: CTA bilateral, no rhonchi, no rales , no accessory muscle use Abdominal: Right lower quadrant tenderness upon palpation, soft and distended. Ext: no gross muscle atrophy, no edema, no contractures Neuro: CN II-XI grossly intact, no focal neuro deficits Psych: Alert, oriented, appropriate affect Assessment and plan of care: Perforated acute sigmoid diverticulitis with 7.5 cm Abscess Hypovolemic Hyponatremia, resolved -General surgeon to look patient to OR on 11/04/22 revealing perforated complicated sigmoid diverticulitis with contained pelvic abscess, patient underwent a robotic-assisted da Checo laparoscopic lysis of adhesions, per OMR documentation contained pelvic abscess was not amendable to drainage due to 6/concrete adhesions. -Cultures were obtained of peritoneal fluid during laparoscopic procedure and sent to lab for analysis. -Patient to remain on IV antibiotics with Zosyn 3.375 g every 8 hours pending final culture and sensitivity report. -Continue with symptomatic care and pain management. -Diet to be advanced per general surgery recommendations. Patient remains on TPN at this time. -Blood cultures negative. -Infectious disease following, and review documentation in chart. Hyperglycemia, hemoglobin A1c 7% Resulting in newly diagnosed type 2 diabetes mellitus. -Continue with glycemic protocol with NovoLog sliding scale. -Will plan to discharge patient home on metformin 500 mg twice a day. -Consult placed to case management for ordering and assistance obtaining of diabetic supplies. Hypertensive urgency, blood pressure is much better controlled -Patient blood pressure remains controlled since starting patient on Dilaudid MOTEL CLERK. Blood pressure 123/84, heart rate 82, SpO2 of 94% on room air. -Patient remains on Dilaudid MOTEL CLERK pump, continue with 4mg morphine IV q4h PRN for breakthrough pain -Continue Nifedipine 60mg BID, lisinopril 40 mg daily, metoprolol 50 mg daily, and hydralazine 25 mg twice daily. -Continue Clonidine 0.2mg TID as needed for systolic pressure > 180 and/or diastolic pressure > 110. Patient has not required a dose of PRN clonidine since 10/28/22 Hyperlipidemia -Continue daily medication regimen with atorvastatin 80 mg daily. Hypothyroidism -Continue daily medication regimen with levothyroxine 100 g daily. Imaging: -No new imaging to review today. Data Review: -Blood cultures negative. -Vital signs reviewed. Blood pressure 123/84, heart rate 82, SpO2 of 94% on room air. -Morning labs reviewed. CBC revealing mild normocytic anemia with hemoglobin stable at 11.6. BMP revealing sodium 135 and glucose 141. Magnesium normal findings at 1.9. CODE STATUS: Full Code DVT prophylaxis: Heparin Anticipated discharge: Clinical course to determine Anticipated discharge place: Home Patient was seen independently by Nurse Pracitioner. This document was prepared using [employer] dictation software. Please allow for errors in dietitian, while rare they do occur. I reviewed the documentation as provided by the ODN above, who is the original author of this note. I agree with the documented assessment and plan, with the following changes: none Objective - Vital Signs Vital signs: Vital Signs Temp 98.2 F 11/04/22 07:09 Pulse 78 11/04/22 08:14 Resp 16 11/04/22 08:14 BP 133/71 11/04/22 08:14 Pulse Ox 97 11/04/22 08:14 FiO2 Intake & Output 11/03/22 11/04/22 11/04/22 18:59 06:59 18:59 Intake Total 1011 1000 100 Balance 1011 1000 100 Weight 145 kg 145.1 kg Intake: IV 100 Intake, IV Titration 1011 1000 Amount Amino Acid 5%-D20w+Lytes* 1000 E* 1,000 ml @ 80 mls/hr IV .BY DURATION TANJA Rx#: [id number] Mvi, Adult No.4 with Vit 1011 K 10 ml Trace (Conc-1Ml/ Dose) 1 ml In Amino Acid 5%-D20w+Lytes*E* 1,000 ml @ 80 mls/hr IV .BY DURATION TANJA Rx#: [id number] Other: # Voids 4 3 - Labs CBC & Chem 7: 11/07/22 04:38 11/07/22 04:38 Labs: Abnormal Lab Results - Last 24 Hours (Table) 11/03/22 11/03/22 11/03/22 Range/Units 06:36 11:39 16:58 RBC (4.30-5.90) m/uL Hgb (13.0-17.5) gm/dL Hct (39.0-53.0) % Sodium (137-145) mmol/L BUN 7.6 L (9.0-27.0) mg/dL BUN/Creatinine Ratio 10.86 L (12.00-20.00) Ratio Glucose 155 H (70-110) mg/dL POC Glucose (mg/dL) 131 H 137 H (70-110) mg/dL Calcium 8.5 L (8.7-10.3) mg/dL Total Protein (6.3-8.2) g/dL Albumin (3.5-5.0) g/dL 11/04/22 11/04/22 11/04/22 Range/Units 00:38 06:22 07:38 RBC (4.30-5.90) m/uL Hgb (13.0-17.5) gm/dL Hct (39.0-53.0) % Sodium 135 L (137-145) mmol/L BUN (9.0-27.0) mg/dL BUN/Creatinine Ratio (12.00-20.00) Ratio Glucose 141 H (70-110) mg/dL POC Glucose (mg/dL) 149 H 145 H (70-110) mg/dL Calcium 8.1 L (8.7-10.3) mg/dL Total Protein 5.8 L (6.3-8.2) g/dL Albumin 2.9 L (3.5-5.0) g/dL 11/04/22 Range/Units 07:38 RBC 3.98 L (4.30-5.90) m/uL Hgb 11.6 L (13.0-17.5) gm/dL Hct 35.1 L (39.0-53.0) % Sodium (137-145) mmol/L BUN (9.0-27.0) mg/dL BUN/Creatinine Ratio (12.00-20.00) Ratio Glucose (70-110) mg/dL POC Glucose (mg/dL) (70-110) mg/dL Calcium (8.7-10.3) mg/dL Total Protein (6.3-8.2) g/dL Albumin (3.5-5.0) g/dL
[2022-11-04] MEDS: ALBUTEROL HFA INHALER INHALATION PRN (20:58)
[2022-11-04] MEDS: MELATONIN 3 MG TABLET PO PRN (23:54)
[2022-11-05 00:22] LABS: Glucose,Whole Blood 145 mg/dL (70-110)
[2022-11-05] MEDS: INSULIN ASPART (NovoLOG) 100 UNIT/ML VIAL SQ SCH ×4 (00:30→18:24)
[2022-11-05] MEDS: LORazepam 2 MG/ML INJ IV PRN (05:29)
[2022-11-05] MEDS: KETOROLAC 15 MG/ML 1 ML VIAL IVP SCH ×3 (05:29→18:21)
[2022-11-05] MEDS: LEVOTHYROXINE 100 MCG TAB PO SCH (05:30)
[2022-11-05 06:05] LABS: Glucose,Whole Blood 145 mg/dL (70-110)
--- NOTE | 2022-11-05 07:08 | P.PN ---
Progress Note - Text Progress Note Date: 11/05/22 Patient resting comfortable in his bed. He states he has some mild abdominal pain. On exam vital signs are stable. Abdomen soft obese with some mild tenderness. History of perforated diverticulitis with abscess phlegmon. Patient will receive IV antibiotics.
[2022-11-05 08:09] LABS: ALT 30 U/L (4-49); AST 27 U/L (17-59); African American GFR (CKD) >90 (>60 ml/min/1.73 sqM); Albumin 3.1 g/dL (3.5-5.0); Alkaline Phosphatase 52 U/L (38-126); Anion Gap 6 mmol/L; Blood Urea Nitrogen 12 mg/dL (9-20); Calcium 8.3 mg/dL (8.4-10.2); Carbon Dioxide 27 mmol/L (22-30); Chloride 103 mmol/L (98-107); Globulin 3.1 g/dL; Glucose 152 mg/dL (74-99); Non-African American GFR(CKD) >90 (>60 ml/min/1.73 sqM); Phosphorus 3.7 mg/dL (2.5-4.5); Potassium 4.4 mmol/L (3.5-5.1); Sodium 136 mmol/L (137-145); Total Bilirubin 0.3 mg/dL (0.2-1.3); Total Protein 6.2 g/dL (6.3-8.2)
[2022-11-05] MEDS: METOPROLOL SUCCINATE (ER) 50 MG TAB.ER.24H PO SCH (08:45)
[2022-11-05] MEDS: HEPARIN SODIUM,PORCINE/PF 5,000 UNIT/0.5 ML SYRINGE SQ SCH ×2 (08:45→18:21)
[2022-11-05] MEDS: lisinopriL 20 MG TAB PO SCH (08:45)
[2022-11-05] MEDS: ATORVASTATIN 80 MG TAB PO SCH (08:45)
[2022-11-05] MEDS: PIPERACILLIN-TAZOBACTAM 3.375 GM in SODIUM CHLORIDE 0.9% 100 ML IVPB SCH ×2 (08:46→18:22)
[2022-11-05] MEDS: hydrALAZINE HCL 25 MG TAB PO SCH ×2 (08:46→21:36)
[2022-11-05] MEDS: 1: MVI, ADULT NO.4 WITH VIT K 10 ML, TRACE (CONC-1ML/DOSE) 1 ML in AMINO ACID 5%-D20W+LY IV SCH ×3 (08:47)
[2022-11-05 11:42] LABS: Glucose,Whole Blood 174 mg/dL (70-110)
[2022-11-05 12:57] LABS: Basophils % (A) 0 %; Eosinophils # (A) 0.2 k/uL (0-0.7); Eosinophils % (A) 2 %; HCT 36.9 % (39.0-53.0); HGB 11.8 gm/dL (13.0-17.5); Lymphocytes # (A) 2.4 k/uL (1.0-4.8); Lymphocytes % (A) 35 %; MCH 28.6 pg (25.0-35.0); MCHC 31.8 g/dL (31.0-37.0); MCV 89.8 fL (80.0-100.0); Mean Platelet Volume 8.2; Monocytes # (A) 0.5 k/uL (0-1.0); Monocytes % (A) 8 %; Neutrophils # (A) 3.4 k/uL (1.3-7.7); Neutrophils % (A) 52 %; Platelet Count 347 k/uL (150-450); RBC 4.11 m/uL (4.30-5.90); RDW 15.1 % (11.5-15.5); WBC 6.7 k/uL (3.8-10.6)
[2022-11-05] MEDS: LORazepam 1 MG TAB PO PRN ×2 (13:15→23:31)
--- NOTE | 2022-11-05 13:47 | P.PN ---
Subjective Progress Note Date: 11/05/22 Principal diagnosis: Perforated diverticulitis with abscess Patient is a 57-year-old male presenting to the hospital on 10/22/2022 for evaluation of abdominal pain that has been going on for about 4 to 5 days before presentation to the hospital pain was mostly in the left abdominal area , patient did have a CT with evidence of diverticulitis and abscess repeat CAT scan completed on 10/26/2022 diverticulitis and abscess. patient was taken to the OR 11/04/2022 and the patient is status post robotic assisted laparoscopic lysis of adhesion and drainage of the abdominal abscess and cultures has been obtained On today's evaluation that is 11/05/2022 patient is afebrile , the Pt is breathing comfortably on room air , abdominal pain is currently controlled no nausea no vomiting and no diarrhea Objective - Vital Signs Vital signs: Vital Signs Temp 97.4 F L 11/05/22 08:18 Pulse 83 11/05/22 08:18 Resp 19 11/05/22 08:18 BP 136/87 11/05/22 08:18 Pulse Ox 95 11/05/22 08:18 FiO2 Intake & Output 11/04/22 11/05/22 11/05/22 18:59 06:59 18:59 Intake Total 2211 1000 118 Output Total 805 Balance 1406 1000 118 Weight 145.1 kg 145 kg Intake: IV 1000 Intake, IV Titration 1011 1000 Amount Amino Acid 5%-D20w+Lytes* 1000 E* 1,000 ml @ 80 mls/hr IV .BY DURATION TANJA Rx#: [id number] Mvi, Adult No.4 with Vit 1011 K 10 ml Trace (Conc-1Ml/ Dose) 1 ml In Amino Acid 5%-D20w+Lytes*E* 1,000 ml @ 80 mls/hr IV .BY DURATION TANJA Rx#: [id number] Oral 200 118 Output: Urine 800 Estimated Blood Loss 5 Other: Voiding Method Toilet # Voids 3 3 - Exam GENERAL DESCRIPTION: Middle-aged male lying in bed in no distress RESPIRATORY SYSTEM: Unlabored breathing , decreased breath sounds at bases HEART: S1 S2 regular rate and rhythm , ABDOMEN: Soft , mild distention and tenderness EXTREMITIES: No edema feet - Labs CBC & Chem 7: 11/05/22 07:22 11/05/22 07:22 Labs: Abnormal Lab Results - Last 24 Hours (Table) 11/04/22 11/05/22 11/05/22 Range/Units 16:05 00:20 06:04 Sodium (137-145) mmol/L Creatinine (0.66-1.25) mg/dL Glucose (74-99) mg/dL POC Glucose (mg/dL) 184 H 145 H 145 H (70-110) mg/dL Calcium (8.4-10.2) mg/dL Total Protein (6.3-8.2) g/dL Albumin (3.5-5.0) g/dL 11/05/22 11/05/22 Range/Units 07:22 11:41 Sodium 136 L (137-145) mmol/L Creatinine 0.64 L (0.66-1.25) mg/dL Glucose 152 H (74-99) mg/dL POC Glucose (mg/dL) 174 H (70-110) mg/dL Calcium 8.3 L (8.4-10.2) mg/dL Total Protein 6.2 L (6.3-8.2) g/dL Albumin 3.1 L (3.5-5.0) g/dL Microbiology - Last 24 Hours (Table) 11/04/22 09:54 Gram Stain - Preliminary Peritoneal Fluid Assessment and Plan (1) Diverticulitis of intestine, part unspecified, with perforation and abscess without bleeding Current Visit: Yes Status: Acute Code(s): K57.80 - DVTRCLI OF INTEST, PART UNSP, W PERF AND ABSCESS W/O BLEED SNOMED Code(s): 492290793 Plan: This was a telehealth visit 1patient was in the hospital abdominal pain and this patient has been diagnosed with a perforated diverticulitis and concerning for abscess formation likely from enteric gram-negative both aerobes and anaerobes patient is reporting some improvement in his symptoms he is afebrile and white count is normal 2-Patient is status post laparoscopic lysis of adhesion and drainage of the abscess culture has been obtained and those are pending, will continue patient on Zosyn with the discharge antibiotics on the basis of final culture Time with Patient: Less than 30
--- NOTE | 2022-11-05 16:02 | P.PN ---
Subjective Progress Note Date: 11/05/22 Hospital course: Patient is a very pleasant 57-year-old male with a past medical history of coronary artery disease with previous [place] and stent placement in October 2021, cervical DJD, asthma, hypertension, and hypothyroidism. He initially presented to [facility] emergency room with complaints of abdominal discomfort on 10/21/22. Patient reports that his symptoms started approximately 4-5 days previously with primarily left-sided abdominal discomfort which has been radiating throughout the abdomen. Reports that his symptoms worsened over the past 24 hours and prompted him to come to the emergency room. At [facility], CT abdomen and pelvis was completed which reportedly revealed findings consistent with acute diverticulitis with micro perforation and possible early abscess formation. Patient was transferred to our facility for admission and evaluation by general surgeon. Upon arrival to our facility, labs were completed and reviewed. CBC unremarkable. Coags normal findings. BMP showing mild hyponatremia with sodium 134, hypochloremia with chloride 97, and hypocarbia with bicarb of 21. Glucose 183. Liver enzymes unremarkable. Urinalysis negative for infection. EKG was completed showing sinus tachycardia at 102 bpm with T-wave inversion in inferior lead [address] abnormalities upon personal review and interpretation.. Patient was started on IV fluid hydration along with IV antibiotics Flagyl and Rocephin and admitted under our services with consultation to general surgery. Repeat CT abdomen and pelvis was completed 10/26/22 showing redemonstration of perforated sigmoid diverticulitis with adjacent gas and air fluid collection measuring up to 7.5 cm just superior to this region a fluid component concerning for developing abscess with similar foci of gas stranding extending superiorly to the collection. Infectious disease consulted at this time. CT abdomen and pelvis again repeated on 11/02/22 showing redemonstration of perforated sigmoid diverticulitis with adjacent gas and air fluid collection measuring up to 7.3 x 6.8 cm concerning for abscess. Patient was taken to OR on 11/04/22 revealing perforated complicated sigmoid diverticulitis with contained pelvic abscess, patient underwent a robotic-assisted da Checo laparoscopic lysis of adhesions, per OMR documentation contained pelvic abscess was not amendable to drainage due to 6/concrete adhesions. Cultures were obtained of peritoneal fluid and pelvis and sent to lab for analysis. Patient to remain on IV antibiotics with Zosyn pending final culture and sensitivity report. Physical examination:. Patient seen and fully evaluated at bedside this morning. Patient appears to be doing well. Patient reports tolerating regular diet, denies nausea or vomiting, reports that he has passing flatus and having intermittent sharp pains in right upper quadrant. Patient encouraged that he needs to increase ambulation today and get up out of bed. Patient instructed needed to be out of bed with all pierre ls today and attempt to increase ambulation. General: non toxic, no distress, appears at stated age Derm: warm, dry Head: atraumatic, normocephalic, symmetric Eyes: EOMI, no lid lag, anicteric sclera Mouth: no lip lesion, mucus membranes moist Cardiovascular: S1S2 reg, no murmur, positive posterior tibial pulse bilateral, Lungs: CTA bilateral, no rhonchi, no rales , no accessory muscle use Abdominal: Slight Right lower and upper quadrant tenderness upon palpation, soft and distended. Ext: no gross muscle atrophy, no edema, no contractures Neuro: CN II-XI grossly intact, no focal neuro deficits Psych: Alert, oriented, appropriate affect Assessment and plan of care: Perforated acute sigmoid diverticulitis with 7.5 cm Abscess Hypovolemic Hyponatremia, resolved -General surgeon to look patient to OR on 11/04/22 revealing perforated complicated sigmoid diverticulitis with contained pelvic abscess, patient underwent a robotic-assisted da Checo laparoscopic lysis of adhesions, per OMR documentation contained pelvic abscess was not amendable to drainage due to concrete adhesions. -Gen. surgery following and reviewed documentation in chart. -Cultures were obtained of peritoneal fluid during laparoscopic procedure and sent to lab for analysis. -Patient to remain on IV antibiotics with Zosyn 3.375 g every 8 hours pending final culture and sensitivity report. -Continue with symptomatic care and pain management. -Patient tolerating a low fiber diet, TPN discontinued at this time and RN to wean off per policy. -Blood cultures negative. -Infectious disease following, and reviewed documentation in chart. -Discontinued IV Ativan and started patient on oral Ativan 1 mg by mouth every 8 hours as needed for anxiety. -Discontinued Dilaudid CLIMATOLOGY PROFESSOR and placed patient on PRN Dilaudid 1 mg every 3 hours as needed for severe pain, scheduled Tylenol 1000 mg 3 times daily, and scheduled Toradol 15 mg IVP every 6 hours. Hyperglycemia, hemoglobin A1c 7% Resulting in newly diagnosed type 2 diabetes mellitus. -Continue with glycemic protocol with NovoLog sliding scale. -Will plan to discharge patient home on metformin 500 mg twice a day. -Consult placed to case management for ordering and assistance obtaining of diabetic supplies. Hypertensive urgency, blood pressure is much better controlled -Vital signs reviewed and stable: Blood pressure 136/87, heart rate 83, respiratory rate 19, and SpO2 of 95% on room air with temp 97.4F. -Continue Nifedipine 60mg BID, lisinopril 40 mg daily, metoprolol 50 mg daily, and hydralazine 25 mg twice daily. -Continue Clonidine 0.2mg TID as needed for systolic pressure > 180 and/or diastolic pressure > 110. Patient has not required a dose of PRN clonidine since 10/28/22 Hyperlipidemia -Continue daily medication regimen with atorvastatin 80 mg daily. Hypothyroidism -Continue daily medication regimen with levothyroxine 100 g daily. Imaging: -No new imaging to review today. Data Review: -Blood cultures negative. -Vital signs reviewed. Blood pressure 136/87, heart rate 83, respiratory rate 19, and SpO2 of 95% on room air with temp 97.4F. -Morning labs reviewed. CBC stable with hemoglobin of 11.8, BMP remains unremarkable with the exception of slightly elevated blood glucose level above 152. Liver enzymes unremarkable. CODE STATUS: Full Code DVT prophylaxis: Heparin Anticipated discharge: Clinical course to determine Anticipated discharge place: Home Patient was seen independently by Nurse Pracitioner. This document was prepared using [employer] dictation software. Please allow for errors in skiver sock linings, while rare they do occur. Trace Butcher NP rendered care for this patient independently, reviewed the findings and plan as documented in the note above. I did not physically speak with or examine the patient on this date. Objective - Vital Signs Vital signs: Vital Signs Temp 97.4 F L 11/05/22 08:18 Pulse 83 11/05/22 08:18 Resp 19 11/05/22 08:18 BP 136/87 11/05/22 08:18 Pulse Ox 95 11/05/22 08:18 FiO2 Intake & Output 11/04/22 11/05/22 11/05/22 18:59 06:59 18:59 Intake Total 2211 1000 Output Total 805 Balance 1406 1000 Weight 145.1 kg 145 kg Intake: IV 1000 Intake, IV Titration 1011 1000 Amount Amino Acid 5%-D20w+Lytes* 1000 E* 1,000 ml @ 80 mls/hr IV .BY DURATION [facility] Rx#: [id number] Mvi, Adult No.4 with Vit 1011 K 10 ml Trace (Conc-1Ml/ Dose) 1 ml In Amino Acid 5%-D20w+Lytes*E* 1,000 ml @ 80 mls/hr IV .BY DURATION TANJA Rx#: [id number] Oral 200 Output: Urine 800 Estimated Blood Loss 5 Other: Voiding Method Toilet # Voids 3 3 - Labs CBC & Chem 7: 11/05/22 07:22 11/05/22 07:22 Labs: Abnormal Lab Results - Last 24 Hours (Table) 11/04/22 11/04/22 11/05/22 Range/Units 11:37 16:05 00:20 Sodium (137-145) mmol/L Creatinine (0.66-1.25) mg/dL Glucose (74-99) mg/dL POC Glucose (mg/dL) 194 H 184 H 145 H (70-110) mg/dL Calcium (8.4-10.2) mg/dL Total Protein (6.3-8.2) g/dL Albumin (3.5-5.0) g/dL 11/05/22 11/05/22 Range/Units 06:04 07:22 Sodium 136 L (137-145) mmol/L Creatinine 0.64 L (0.66-1.25) mg/dL Glucose 152 H (74-99) mg/dL POC Glucose (mg/dL) 145 H (70-110) mg/dL Calcium 8.3 L (8.4-10.2) mg/dL Total Protein 6.2 L (6.3-8.2) g/dL Albumin 3.1 L (3.5-5.0) g/dL
[2022-11-05] MEDS: HYDROmorphone 1 MG/ML 1 ML SYRINGE IVP PRN ×2 (16:43→21:37)
[2022-11-05 18:21] LABS: Glucose,Whole Blood 144 mg/dL (70-110)
[2022-11-05] MEDS: ACETAMINOPHEN TAB 500 MG TAB PO SCH (18:25)
[2022-11-05 21:03] LABS: Glucose,Whole Blood 108 mg/dL (70-110)
[2022-11-05] MEDS: MELATONIN 3 MG TABLET PO PRN (23:31)
[2022-11-06] MEDS: KETOROLAC 15 MG/ML 1 ML VIAL IVP SCH ×5 (00:41→18:32)
[2022-11-06] MEDS: PIPERACILLIN-TAZOBACTAM 3.375 GM in SODIUM CHLORIDE 0.9% 100 ML IVPB SCH ×3 (00:42→16:19)
[2022-11-06] MEDS: ACETAMINOPHEN TAB 500 MG TAB PO SCH ×3 (00:42→16:19)
[2022-11-06] MEDS: HEPARIN SODIUM,PORCINE/PF 5,000 UNIT/0.5 ML SYRINGE SQ SCH ×3 (00:42→16:20)
[2022-11-06] MEDS: INSULIN ASPART (NovoLOG) 100 UNIT/ML VIAL SQ SCH ×5 (01:26→20:58)
[2022-11-06] MEDS: HYDROmorphone 1 MG/ML 1 ML SYRINGE IVP PRN ×5 (02:07→21:08)
[2022-11-06 04:39] LABS: ALT 34 U/L (4-49); AST 37 U/L (17-59); African American GFR (CKD) >90 (>60 ml/min/1.73 sqM); Albumin 3.3 g/dL (3.5-5.0); Alkaline Phosphatase 63 U/L (38-126); Anion Gap 7 mmol/L; Blood Urea Nitrogen 18 mg/dL (9-20); Calcium 8.6 mg/dL (8.4-10.2); Carbon Dioxide 26 mmol/L (22-30); Chloride 102 mmol/L (98-107); Globulin 3.2 g/dL; Glucose 102 mg/dL (74-99); Magnesium 1.9 mg/dL (1.6-2.3); Non-African American GFR(CKD) >90 (>60 ml/min/1.73 sqM); Phosphorus 4.3 mg/dL (2.5-4.5); Potassium 4.4 mmol/L (3.5-5.1); Sodium 135 mmol/L (137-145); Total Bilirubin 0.3 mg/dL (0.2-1.3); Total Protein 6.5 g/dL (6.3-8.2)
[2022-11-06 06:29] LABS: Glucose,Whole Blood 89 mg/dL (70-110)
--- NOTE | 2022-11-06 09:51 | P.PN ---
Progress Note - Text Progress Note Date: 11/06/22 Patient [place] stable. He's had some complaints of incisional pain. On exam vital signs appear stable. Abdomen soft obese there is some minimal tenderness. There is no rebound or guarding. History of perforated sigmoid diverticulitis with abscess. Patient continue receive IV antibiotic therapy.
[2022-11-06] MEDS: LORazepam 1 MG TAB PO PRN ×2 (09:58→22:28)
[2022-11-06] MEDS: lisinopriL 20 MG TAB PO SCH (10:04)
[2022-11-06] MEDS: ATORVASTATIN 80 MG TAB PO SCH (10:05)
[2022-11-06] MEDS: METOPROLOL SUCCINATE (ER) 50 MG TAB.ER.24H PO SCH (10:05)
[2022-11-06] MEDS: hydrALAZINE HCL 25 MG TAB PO SCH ×2 (10:10→21:02)
[2022-11-06 11:25] LABS: Glucose,Whole Blood 110 mg/dL (70-110)
--- NOTE | 2022-11-06 14:27 | P.PN ---
Subjective Progress Note Date: 11/06/22 Hospital course: Patient is a very pleasant 57-year-old male with a past medical history of coronary artery disease with previous AL and stent placement in October 2021, cervical DJD, asthma, hypertension, and hypothyroidism. He initially presented to [facility] emergency room with complaints of abdominal discomfort on 10/21/22. Patient reports that his symptoms started approximately 4-5 days previously with primarily left-sided abdominal discomfort which has been radiating throughout the abdomen. Reports that his symptoms worsened over the past 24 hours and prompted him to come to the emergency room. At [facility], CT abdomen and pelvis was completed which reportedly revealed findings consistent with acute diverticulitis with micro perforation and possible early abscess formation. Patient was transferred to our facility for admission and evaluation by general surgeon. Upon arrival to our facility, labs were completed and reviewed. CBC unremarkable. Coags normal findings. BMP showing mild hyponatremia with sodium 134, hypochloremia with chloride 97, and hypocarbia with bicarb of 21. Glucose 183. Liver enzymes unremarkable. Urinalysis negative for infection. EKG was completed showing sinus tachycardia at 102 bpm with T-wave inversion in inferior lead [address] abnormalities upon personal review and interpretation.. Patient was started on IV fluid hydration along with IV antibiotics Flagyl and Rocephin and admitted under our services with consultation to general surgery. Repeat CT abdomen and pelvis was completed 10/26/22 showing redemonstration of perforated sigmoid diverticulitis with adjacent gas and air fluid collection measuring up to 7.5 cm just superior to this region a fluid component concerning for developing abscess with similar foci of gas stranding extending superiorly to the collection. Infectious disease consulted at this time. CT abdomen and pelvis again repeated on 11/02/22 showing redemonstration of perforated sigmoid diverticulitis with adjacent gas and air fluid collection measuring up to 7.3 x 6.8 cm concerning for abscess. Patient was taken to OR on 11/04/22 revealing perforated complicated sigmoid diverticulitis with contained pelvic abscess, patient underwent a robotic-assisted da Checo laparoscopic lysis of adhesions, per OMR documentation contained pelvic abscess was not amendable to drainage due to 6/concrete adhesions. Cultures were obtained of peritoneal fluid and pelvis and sent to lab for analysis. Peritoneal fluid culture finalized showing no growth after 48 hours. Patient remains on IV antibiotics with Zosyn 3.375 mg every 8 hours being managed by infectious disease physician. Physical examination:. Patient seen and fully evaluated at bedside this morning. Patient appears to be doing well. He continues to report tolerating diet and reports walking multiple laps around the department yesterday afternoon. Patient reports that he continues to pass flatus and had 2 bowel movements yesterday. Patient does report mild incisional pain with movement, but otherwise appears to be doing well. IV Ativan and Dilaudid ASSEMBLYMAN OR WOMAN was discontinued yesterday and patient tolerating oral Ativan with PRN Dilaudid and blood pressures remain controlled. General: non toxic, no distress, appears at stated age Derm: warm, dry Head: atraumatic, normocephalic, symmetric Eyes: EOMI, no lid lag, anicteric sclera Mouth: no lip lesion, mucus membranes moist Cardiovascular: S1S2 reg, no murmur, positive posterior tibial pulse bilateral, Lungs: CTA bilateral, no rhonchi, no rales , no accessory muscle use Abdominal: Abdomen soft, nondistended. Patient reports slight incisional tenderness with palpation and otherwise denies any complaints. Normal bowel sounds 4 quadrants Ext: no gross muscle atrophy, no edema, no contractures Neuro: CN II-XI grossly intact, no focal neuro deficits Psych: Alert, oriented, appropriate affect Assessment and plan of care: Perforated acute sigmoid diverticulitis with 7.5 cm Abscess Hypovolemic Hyponatremia, resolved -General surgeon to look patient to OR on 11/04/22 revealing perforated complicated sigmoid diverticulitis with contained pelvic abscess, patient underwent a robotic-assisted da Checo laparoscopic lysis of adhesions, per OMR documentation contained pelvic abscess was not amendable to drainage due to concrete adhesions. -Gen. surgery following and reviewed documentation in chart. -Cultures were obtained of peritoneal fluid during laparoscopic procedure and sent to lab for analysis. Peritoneal fluid culture finalized showing no growth after 48 hours. -Patient remains on IV antibiotics with Zosyn 3.375 mg every 8 hours being managed by infectious disease physician. -Continue with symptomatic care and pain management. IV Ativan and Dilaudid ASSEMBLYMAN OR WOMAN was discontinued yesterday and patient tolerating oral Ativan with PRN Dilaudid and blood pressures remain controlled. -Patient tolerating a low fiber diet, TPN discontinued on 11/05/22 -Blood cultures negative. -Infectious disease following, and reviewed documentation in chart. -Continue pain management with PRN Dilaudid 1 mg every 3 hours as needed for severe pain, scheduled Tylenol 1000 mg 3 times daily, and scheduled Toradol 15 mg IVP every 6 hours. Hyperglycemia, hemoglobin A1c 7% Resulting in newly diagnosed type 2 diabetes mellitus. -Continue with glycemic protocol with NovoLog sliding scale. -Will plan to discharge patient home on metformin 500 mg twice a day. -Consult placed to case management for ordering and assistance obtaining of diabetic supplies. Hypertensive urgency, blood pressures now controlled. -Vital signs reviewed and stable: Blood pressure 140/84, heart rate 75, respiratory rate 18, SpO2 96% on room air and temperature 98.1F. -Continue Nifedipine 60mg BID, lisinopril 40 mg daily, metoprolol 50 mg daily, and hydralazine 25 mg twice daily. -Continue Clonidine 0.2mg TID as needed for systolic pressure > 180 and/or diastolic pressure > 110. Patient has not required a dose of PRN clonidine since 10/28/22 Hyperlipidemia -Continue daily medication regimen with atorvastatin 80 mg daily. Hypothyroidism -Continue daily medication regimen with levothyroxine 100 g daily. Imaging: -No new imaging to review today. Data Review: -Blood cultures negative. -Peritoneal fluid culture finalized showing no growth after 48 hours. -Vital signs reviewed. Blood pressure 140/84, heart rate 75, respiratory rate 18, SpO2 96% on room air and temperature 98.1F. -Morning labs reviewed. CMP unremarkable with sodium 135, potassium 4.4, chlor dionna 102, bicarb 26, normal renal function with BUN of 18, creatinine 0.78, GFR greater than 90. Glucose normal findings at 102. Liver profile also unremarkable. CODE STATUS: Full Code DVT prophylaxis: Heparin Anticipated discharge: Clinical course to determine Anticipated discharge place: Home Patient was seen independently by Nurse Pracitioner. This document was prepared using kompany dictation software. Please allow for errors in neon tube bender, while rare they do occur. I reviewed the documentation as provided by the DON above, who is the original author of this note. I agree with the documented assessment and plan, with the following changes: none Objective - Vital Signs Vital signs: Vital Signs Temp 98 F 11/06/22 02:00 Pulse 76 11/06/22 02:00 Resp 17 11/05/22 20:00 BP 117/82 11/06/22 02:00 Pulse Ox 96 11/06/22 02:00 FiO2 Intake & Output 11/05/22 11/06/22 11/06/22 18:59 06:59 18:59 Intake Total 118 100 Balance 118 100 Weight 145 kg Intake: Intake, IV Titration 100 Amount Piperacillin-Tazobactam 3 100 .375 gm In Sodium Chloride 0.9% 100 ml @ 25 mls/hr IVPB Q8HR [facility] Rx# :[id number] Oral 118 Other: Voiding Method Toilet # Voids 2 - Labs CBC & Chem 7: 11/07/22 04:38 11/07/22 04:38 Labs: Abnormal Lab Results - Last 24 Hours (Table) 11/05/22 11/05/22 11/05/22 Range/Units 07:22 11:41 18:20 RBC 4.11 L (4.30-5.90) m/uL Hgb 11.8 L (13.0-17.5) gm/dL Hct 36.9 L (39.0-53.0) % Sodium (137-145) mmol/L Glucose (74-99) mg/dL POC Glucose (mg/dL) 174 H 144 H (70-110) mg/dL Albumin (3.5-5.0) g/dL 11/06/22 Range/Units 04:09 RBC (4.30-5.90) m/uL Hgb (13.0-17.5) gm/dL Hct (39.0-53.0) % Sodium 135 L (137-145) mmol/L Glucose 102 H (74-99) mg/dL POC Glucose (mg/dL) (70-110) mg/dL Albumin 3.3 L (3.5-5.0) g/dL Microbiology - Last 24 Hours (Table) 11/04/22 09:54 Gram Stain - Final Peritoneal Fluid Body Fluid Culture - Final
[2022-11-06 16:45] LABS: Glucose,Whole Blood 112 mg/dL (70-110)
[2022-11-06 20:23] LABS: Glucose,Whole Blood 111 mg/dL (70-110)
[2022-11-06] MEDS: ALBUTEROL HFA INHALER INHALATION PRN (20:27)
[2022-11-06] MEDS: MELATONIN 3 MG TABLET PO PRN (22:28)
[2022-11-07] MEDS: KETOROLAC 15 MG/ML 1 ML VIAL IVP SCH ×3 (00:28→14:04)
[2022-11-07] MEDS: HEPARIN SODIUM,PORCINE/PF 5,000 UNIT/0.5 ML SYRINGE SQ SCH ×2 (00:28→08:48)
[2022-11-07] MEDS: PIPERACILLIN-TAZOBACTAM 3.375 GM in SODIUM CHLORIDE 0.9% 100 ML IVPB SCH ×2 (00:28→09:30)
[2022-11-07] MEDS: ACETAMINOPHEN TAB 500 MG TAB PO SCH ×2 (00:34→09:31)
[2022-11-07] MEDS: HYDROmorphone 1 MG/ML 1 ML SYRINGE IVP PRN ×2 (01:52→08:46)
[2022-11-07 05:27] LABS: HCT 35.1 % (39.0-53.0); HGB 11.7 gm/dL (13.0-17.5); MCH 28.9 pg (25.0-35.0); MCHC 33.4 g/dL (31.0-37.0); MCV 86.6 fL (80.0-100.0); Mean Platelet Volume 7.6; Platelet Count 339 k/uL (150-450); RBC 4.06 m/uL (4.30-5.90); RDW 15.4 % (11.5-15.5); WBC 7.1 k/uL (3.8-10.6)
[2022-11-07 06:02] LABS: ALT 34 U/L (4-49); AST 32 U/L (17-59); African American GFR (CKD) >90 (>60 ml/min/1.73 sqM); Albumin 3.2 g/dL (3.5-5.0); Albumin/Globulin Ratio 1.1; Alkaline Phosphatase 69 U/L (38-126); Anion Gap 8 mmol/L; Blood Urea Nitrogen 15 mg/dL (9-20); Calcium 8.7 mg/dL (8.4-10.2); Carbon Dioxide 24 mmol/L (22-30); Chloride 102 mmol/L (98-107); Glucose 102 mg/dL (74-99); Magnesium 1.8 mg/dL (1.6-2.3); Non-African American GFR(CKD) >90 (>60 ml/min/1.73 sqM); Phosphorus 4.6 mg/dL (2.5-4.5); Potassium 4.3 mmol/L (3.5-5.1); Sodium 134 mmol/L (137-145); Total Bilirubin 0.3 mg/dL (0.2-1.3); Total Protein 6.2 g/dL (6.3-8.2)
[2022-11-07 06:18] LABS: Glucose,Whole Blood 101 mg/dL (70-110)
[2022-11-07] MEDS: LEVOTHYROXINE 100 MCG TAB PO SCH (06:20)
[2022-11-07] MEDS: INSULIN ASPART (NovoLOG) 100 UNIT/ML VIAL SQ SCH ×2 (06:36→14:02)
[2022-11-07] MEDS: hydrALAZINE HCL 25 MG TAB PO SCH (08:47)
[2022-11-07] MEDS: METOPROLOL SUCCINATE (ER) 50 MG TAB.ER.24H PO SCH (08:47)
[2022-11-07] MEDS: ATORVASTATIN 80 MG TAB PO SCH (08:47)
[2022-11-07] MEDS: lisinopriL 20 MG TAB PO SCH (08:48)
[2022-11-07] MEDS ORDERED: HYDROcodone/APAP 5-325MG 1 EACH TAB PO PRN (08:49)
[2022-11-07] MEDS ORDERED: HYDROmorphone 1 MG/ML 1 ML SYRINGE IVP PRN (08:49)
[2022-11-07] MEDS: LORazepam 1 MG TAB PO PRN (10:02)
[2022-11-07] MEDS ORDERED: HYDROcodone/APAP 10-325MG 1 EACH TAB PO PRN (10:32)
[2022-11-07 11:59] LABS: Glucose,Whole Blood 132 mg/dL (70-110)
--- NOTE | 2022-11-07 12:33 | P.PN ---
Subjective Progress Note Date: 11/07/22 CHIEF COMPLAINT: Ruptured diverticulitis HISTORY OF PRESENT ILLNESS: Patient admitted to the hospital with acute diverticulitis with microperforation and abscess. Patient remains on IV antibiotics. Patient is status post lysis of adhesions and culture of abscess. Contained pelvic abscess not amenable to drainage due to thick concrete adhesions. Patient reports his pain and continues to show improvement. He has been up and ambulating. Denies any nausea or vomiting. He is having bowel movements. Tolerating diet. Afebrile. WBC is 7.1. Cultures negative so far PHYSICAL EXAM: VITAL SIGNS: Reviewed GENERAL: Well-developed in no acute distress. HEENT: No sclera icterus. Extraocular movements grossly intact. Moist buccal mucosa. Head is atraumatic, normocephalic. Hears conversational speech. No nasal drainage. NECK: Supple without lymphadenopathy. CHEST: Non-labored respirations and equal bilateral excursions. CARDIOVASCULAR: Palpable 2+ radial pulses. ABDOMEN: Soft. Nondistended. mild Tenderness with palpation in the suprapubic, left lower quadrant and more so in right lower quadrant. No evidence of peritonitis MUSCULOSKELETAL: No clubbing or cyanosis. NEUROLOGIC: No focal or lateralizing signs. Cranial nerves II through XII grossly intact. PSYCH: Appropriate affect. Alert and oriented to person, place and time. SKIN: Well perfused. Good skin turgor. ASSESSMENT: 1. Acute diverticulitis with microperforation and abscess 2. Hypertension PLAN: -Patient can be discharged from surgical standpoint -Discussed case with infectious disease. Dr. Hernandez is recommending Augmentin for 10 days -Also, will add Flagyl for discharge -Continue low fiber diet -Continue supportive care -Continue pain management -DVT prophylaxis subcu heparin Physician Acting Manager note has been reviewed by physician. Signing provider agrees with the documented findings, assessment, and plan of care. Objective - Vital Signs Vital signs: Vital Signs Temp 98.8 F 11/07/22 06:54 Pulse 72 11/07/22 06:54 Resp 16 11/07/22 06:54 BP 120/73 11/07/22 06:54 Pulse Ox 92 L 11/07/22 09:05 FiO2 Intake & Output 11/06/22 11/07/22 11/07/22 18:59 06:59 18:59 Weight 145.5 kg Other: # Voids 3 3 - Labs CBC & Chem 7: 07/10/23 04:38 11/07/22 04:38 Labs: Abnormal Lab Results - Last 24 Hours (Table) 11/06/22 11/06/22 11/07/22 Range/Units 16:43 20:21 04:38 RBC (4.30-5.90) m/uL Hgb (13.0-17.5) gm/dL Hct (39.0-53.0) % Sodium 134 L (137-145) mmol/L Glucose 102 H (74-99) mg/dL POC Glucose (mg/dL) 112 H 111 H (70-110) mg/dL Phosphorus 4.6 H (2.5-4.5) mg/dL Total Protein 6.2 L (6.3-8.2) g/dL Albumin 3.2 L (3.5-5.0) g/dL 11/07/22 Range/Units 04:38 RBC 4.06 L (4.30-5.90) m/uL Hgb 11.7 L (13.0-17.5) gm/dL Hct 35.1 L (39.0-53.0) % Sodium (137-145) mmol/L Glucose (74-99) mg/dL POC Glucose (mg/dL) (70-110) mg/dL Phosphorus (2.5-4.5) mg/dL Total Protein (6.3-8.2) g/dL Albumin (3.5-5.0) g/dL Microbiology - Last 24 Hours (Table) 11/04/22 09:54 Anaerobic Culture - Preliminary Peritoneal Fluid 11/04/22 09:54 Gram Stain - Final Peritoneal Fluid Body Fluid Culture - Final
--- NOTE | 2022-11-07 13:08 | P.DS ---
Providers Date of admission: 10/22/22 04:58 Expected date of discharge: 11/07/22 Attending physician: Shruti Hermosillo MD Consults: 10/22/22 05:00 Consult Physician Urgent Consulting Provider: Isha Zamorano Consult Reason/Comments: diverticul. with perforation Do you want consulting provider notified?: Yes 10/28/22 12:06 Consult Physician Routine Consulting Provider: Blank Hernandez Consult Reason/Comments: Diverticulitis with abscess Do you want consulting provider notified?: Yes Primary care physician: [facility] Course: Discharge Diagnosis: Perforated acute sigmoid diverticulitis with 7.5 cm Abscess. Patient was taken to OR on 11/04/22 revealing perforated complicated sigmoid diverticulitis with contained pelvic abscess, patient underwent a robotic-assisted da Checo laparoscopic lysis of adhesions, per OMR documentation contained pelvic abscess was not amendable to drainage due to 6/concrete adhesions. Peritoneal fluid cultures negative. Patient discharged home on an additional 10 days of antibiotic therapy with Augmentin 875/125 mg tablets twice daily and Flagyl 500 mg 3 times daily for an additional 10 days. Hypovolemic Hyponatremia, resolved Hyperglycemia, hemoglobin A1c 7% Resulting in newly diagnosed type 2 diabetes mellitus. Patient discharged home with glucometer and instructed he will need to monitor blood glucose levels daily. Patient discharged home with Glucophage 500 mg twice daily. Hypertensive urgency, blood pressures now controlled. Patient discharged home on Nifedipine 60mg BID, lisinopril 40 mg daily, metoprolol 50 mg daily, and hydralazine 25 mg twice daily. Patient instructed to monitor blood pressures twice daily and document findings in a daily log to bring with him to doctor's appointment therefore additional changes can be made to current medication regimen as he was started on multiple new medications secondary to persistently uncontrolled hypertension. Hyperlipidemia. Continue daily medication regimen with atorvastatin 80 mg daily.. Hospital Course: Patient is a very pleasant 57-year-old male with a past medical history of coronary artery disease with previous MA and stent placement in October 2021, cervical DJD, asthma, hypertension, and hypothyroidism. He initially presented to [facility] emergency room with complaints of abdominal discomfort on 10/21/22. Patient reports that his symptoms started approximately 4-5 days previously with primarily left-sided abdominal discomfort which has been radiating throughout the abdomen. Reports that his symptoms worsened over the past 24 hours and prompted him to come to the emergency room. At [facility], CT abdomen and pelvis was completed which reportedly revealed findings consistent with acute diverticulitis with micro perforation and possible early abscess formation. Patient was transferred to our facility for admission and e valuation by general surgeon. Upon arrival to our facility, labs were completed and reviewed. CBC unremarkable. Coags normal findings. BMP showing mild hyponatremia with sodium 134, hypochloremia with chloride 97, and hypocarbia with bicarb of 21. Glucose 183. Liver enzymes unremarkable. Urinalysis negative for infection. EKG was completed showing sinus tachycardia at 102 bpm with T-wave inversion in inferior lead [address] abnormalities upon personal review and interpretation.. Patient was started on IV fluid hydration along with IV antibiotics Flagyl and Rocephin and admitted under our services with consultation to general surgery. Repeat CT abdomen and pelvis was completed 10/26/22 showing redemonstration of perforated sigmoid diverticulitis with adjacent gas and air fluid collection measuring up to 7.5 cm just superior to this region a fluid component concerning for developing abscess with similar foci of gas stranding extending superiorly to the collection. Infectious disease consulted at this time. CT abdomen and pelvis again repeated on 11/02/22 showing redemonstration of perforated sigmoid diverticulitis with adjacent gas and air fluid collection measuring up to 7.3 x 6.8 cm concerning for abscess. Patient was taken to OR on 11/04/22 revealing perforated complicated sigmoid diverticulitis with contained pelvic abscess, patient underwent a robotic-assisted da Checo laparoscopic lysis of adhesions, per OMR documentation contained pelvic abscess was not amendable to drainage due to 6/concrete adhesions. Cultures were obtained of peritoneal fluid and pelvis and sent to lab for analysis. Peritoneal fluid culture finalized showing no growth after 48 hours. Patient remains on IV antibiotics with Zosyn 3.375 mg every 8 hours. Peritoneal fluid culture finalized showing no growth after 48 hours. Infectious disease clearing patient for discharge on oral antibiotics with Augmentin and Flagyl for an additional 10 days. PICC line being removed. General surgery clearing patient for discharge to follow-up outpatient in our office on 11/29/22. Patient is medically stable at this time. He is ambulating without any difficulties, urinating without any difficulties, and reports normal bowel function. Patient tolerating low-fiber diet. Patient being discharged at this time. He is instructed to follow up outpatient with PCP in 2-3 days and with general surgery as instructed. Physical examination:. General: non toxic, no distress, appears at stated age Derm: warm, dry Head: atraumatic, normocephalic, symmetric Eyes: EOMI, no lid lag, anicteric sclera Mouth: no lip lesion, mucus membranes moist Cardiovascular: S1S2 reg, no murmur, positive posterior tibial pulse bilateral, Lungs: CTA bilateral, no rhonchi, no rales , no accessory muscle use Abdominal: Abdomen soft, nondistended. Patient reports slight incisional tenderness with palpation and otherwise denies any complaints. Normal bowel sounds 4 quadrants Ext: no gross muscle atrophy, no edema, no contractures Neuro: CN II-XI grossly intact, no focal neuro deficits Psych: Alert, oriented, appropriate affect A total of 38 minutes of time were spent preparing this complex discharge summary. Pt was discharged on 11/07/22 1:05 PM Patient was seen independently by Nurse Practitioner. This document was prepared using [employer] dictation software. Please allow for errors in c iron worker while rare they do occur. I reviewed the documentation as provided by the DON above, who is the original author of this note. I agree with the documented assessment and plan, with the following changes: none Patient Condition at Discharge: Stable Plan - Discharge Summary Discharge Rx Participant: No New Discharge Prescriptions: New metroNIDAZOLE [Flagyl] 500 mg PO TID 10 Days #30 tab metFORMIN HCL [Glucophage] 500 mg PO BID 30 Days #60 tab HYDROcodone/APAP 10-325MG [Dobson 10-325] 1 tab PO Q4HR PRN 3 Days #18 tab PRN Reason: Pain NIFEdipine XL [Procardia XL] 60 mg PO Q12HR 30 Days #30 tab lisinopriL [Zestril] 40 mg PO DAILY 30 Days #60 tab Amoxic-Pot Clav 875-125Mg [Augmentin 875-125] 1 tab PO BID 10 Days #20 tab hydrALAZINE HCL [Apresoline] 25 mg PO BID 30 Days #60 tab Continue Albuterol Inhaler [Ventolin Hfa Inhaler] 1 - 2 puff INHALATION RT-Q6H PRN PRN Reason: asthma Aspirin EC [Ecotrin Low Dose] 81 mg PO DAILY Famotidine [Pepcid] 20 mg PO BID PRN PRN Reason: ACID REFLUX Levothyroxine Sodium [Synthroid] 100 mcg PO DAILY Ticagrelor [Brilinta] 90 mg PO BID Acetaminophen Tab [Tylenol] 1,000 mg PO Q6HR PRN PRN Reason: Pain Or Fever > 100.5 Metoprolol Succinate (ER) [Toprol XL] 50 mg PO DAILY Rosuvastatin Calcium [Crestor] 40 mg PO DAILY Discontinued lisinopriL [Zestril] 10 mg PO DAILY Discharge Medication List Albuterol Inhaler [Ventolin Hfa Inhaler] 1 - 2 puff INHALATION RT-Q6H PRN 04/01/16 [History] Acetaminophen Tab [Tylenol] 1,000 mg PO Q6HR PRN 10/22/22 [History] Aspirin EC [Ecotrin Low Dose] 81 mg PO DAILY 10/22/22 [History] Famotidine [Pepcid] 20 mg PO BID PRN 10/22/22 [History] Levothyroxine Sodium [Synthroid] 100 mcg PO DAILY 10/22/22 [History] Metoprolol Succinate (ER) [Toprol XL] 50 mg PO DAILY 10/22/22 [History] Rosuvastatin Calcium [Crestor] 40 mg PO DAILY 10/22/22 [History] Ticagrelor [Brilinta] 90 mg PO BID 10/22/22 [History] Amoxic-Pot Clav 875-125Mg [Augmentin 875-125] 1 tab PO BID 10 Days #20 tab 11/07/22 [Rx] HYDROcodone/APAP 10-325MG [Dobson 10-325] 1 tab PO Q4HR PRN 3 Days #18 tab 11/07/22 [Rx] NIFEdipine XL [Procardia XL] 60 mg PO Q12HR 30 Days #30 tab 11/07/22 [Rx] hydrALAZINE HCL [Apresoline] 25 mg PO BID 30 Days #60 tab 11/07/22 [Rx] lisinopriL [Zestril] 40 mg PO DAILY 30 Days #60 tab 11/07/22 [Rx] metFORMIN HCL [Glucophage] 500 mg PO BID 30 Days #60 tab 11/07/22 [Rx] metroNIDAZOLE [Flagyl] 500 mg PO TID 10 Days #30 tab 11/07/22 [Rx] Follow up Appointment(s)/Referral(s): Isha Zamorano MD [STAFF PHYSICIAN] - 11/29/22 2:15 pm Jewel Quintero DO [Primary Care Provider] - 11/15/22 9:20 am (office will call tomorrow to see how you are doing and if you have any questions) Patient Instructions/Handouts: Low Fiber Diet (DC), Type 2 Diabetes in Adults: New Diagnosis (DC), Hypertension (DC) Activity/Diet/Wound Care/Special Instructions: Activity: As tolerated. Take breaks as needed. Diet: Low fiber, carb consistent diet. Special Instructions: Take all of your medications as directed and remember to keep all of your doctor's appointments and follow-ups as needed. Glucometer is at [facility]. Please have it delivered before discharge. You will need to monitor your blood glucose levels daily and document these findings in a daily log to bring with you.to your next Doctor's appointment. It is also important to monitor your blood pressure daily as you were started on new medications during this hospitalization. Recommend monitoring your blood pressure twice daily and again documenting these findings in a daily log to bring with a neck doctor's appointment as further adjustments or decreased doses may be needed to your daily medication regimen. Also, it was discussed with surgery team and Dr. Zamorano has okay'd for you to resume your Brilinta this evening. Follow up visit telehealth with Dr. Zamorano on 11/29/22 Thank you for allowing us to participate in your care, it was truly a pleasure having you for our patient!!! Discharge Disposition: HOME SELF-CARE
[2022-11-07 15:29] VITALS: BP 119/75; PULSE 85; RESP 18; TEMP 98.3
== END 2022-11-07 17:00 | disposition home or self-care (01) | DRG 335 ==
LOC: EC 01:42 → 4SSUR 04:58
PROVIDERS: ADMIT Internal Medicine; ATTEND Internal Medicine
PROC: 02HV33Z Insertion of Infusion Device into Superior Vena Cava, Percutaneous Approach (ICD-10-PCS; 2022-10-31)
PROC: 3E0436Z Introduction of Nutritional Substance into Central Vein, Percutaneous Approach (ICD-10-PCS; 2022-10-31)
PROC: 8E0W4CZ Robotic Assisted Procedure of Trunk Region, Percutaneous Endoscopic Approach (ICD-10-PCS; principal; 2022-11-04 07:30)
PROC: 0DN84ZZ Release Small Intestine, Percutaneous Endoscopic Approach (ICD-10-PCS; principal; 2022-11-04 07:30)
PROC: 0DNN4ZZ Release Sigmoid Colon, Percutaneous Endoscopic Approach (ICD-10-PCS; principal; 2022-11-04 07:30)
DX: K57.20 Diverticulitis of large intestine with perforation and abscess without bleeding (principal); K65.1 Peritoneal abscess; Z68.41 Body mass index [BMI] 40.0-44.9, adult; E87.1 Hypo-osmolality and hyponatremia; I11.9 Hypertensive heart disease without heart failure; E87.8 Other disorders of electrolyte and fluid balance, not elsewhere classified; K76.0 Fatty (change of) liver, not elsewhere classified; E66.01 Morbid (severe) obesity due to excess calories; E11.65 Type 2 diabetes mellitus with hyperglycemia; D64.9 Anemia, unspecified; E03.9 Hypothyroidism, unspecified; Z28.310 Unvaccinated for COVID-19; K40.90 Unilateral inguinal hernia, without obstruction or gangrene, not specified as recurrent; K66.0 Peritoneal adhesions (postprocedural) (postinfection); I16.0 Hypertensive urgency; E86.1 Hypovolemia; J45.909 Unspecified asthma, uncomplicated; E78.5 Hyperlipidemia, unspecified; I25.10 Atherosclerotic heart disease of native coronary artery without angina pectoris; M47.812 Spondylosis without myelopathy or radiculopathy, cervical region; H91.90 Unspecified hearing loss, unspecified ear; F41.9 Anxiety disorder, unspecified; K21.9 Gastro-esophageal reflux disease without esophagitis; I25.2 Old myocardial infarction; Z79.82 Long term (current) use of aspirin; Z79.890 Hormone replacement therapy; Z79.02 Long term (current) use of antithrombotics/antiplatelets; Z79.899 Other long term (current) drug therapy; Z86.14 Personal history of Methicillin resistant Staphylococcus aureus infection; Z87.442 Personal history of urinary calculi; Z86.718 Personal history of other venous thrombosis and embolism; Z95.5 Presence of coronary angioplasty implant and graft; Z98.1 Arthrodesis status; Z71.3 Dietary counseling and surveillance; Z88.2 Allergy status to sulfonamides
CPT/HCPCS: 36415; 36573; 74176; 74177; 80048; 80053; 81001; 82330; 83036; 83735; 84100; 84478; 85025; 85027; 85610; 85730; 86850; 86900; 86901; 87040; 87070; 87075; 87205; 93005; 94640; 94760; 96372; 96374; 96375; 96376; 99285

== ENCOUNTER 2022-12-02 11:58 | Inpatient (IN) | payer MEDICARE ==
[2022-12-02] MEDS ORDERED: ONDANSETRON 4 MG/2 ML VIAL IVP STA (13:02)
[2022-12-02] MEDS ORDERED: FAMOTIDINE 20 MG/2 ML VIAL IV STA (13:02)
[2022-12-02] MEDS ORDERED: HYDROmorphone 1 MG/ML 1 ML SYRINGE IVP STA ×2 (13:02→15:53)
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
[2022-12-02] MEDS ORDERED: SODIUM CHLORIDE 0.9% 1,000 ML IV STA (13:39)
[2022-12-02 13:48] LABS: Basophils # (A) 0.1 k/uL (0-0.2); Basophils % (A) 0 %; Eosinophils # (A) 0.2 k/uL (0-0.7); Eosinophils % (A) 1 %; HCT 38.4 % (39.0-53.0); HGB 13.3 gm/dL (13.0-17.5); Lymphocytes # (A) 1.4 k/uL (1.0-4.8); Lymphocytes % (A) 10 %; MCH 29.1 pg (25.0-35.0); MCHC 34.6 g/dL (31.0-37.0); MCV 84.2 fL (80.0-100.0); Mean Platelet Volume 7.4; Monocytes % (A) 7 %; Neutrophils # (A) 11.3 k/uL (1.3-7.7); Neutrophils % (A) 80 %; Platelet Count 270 k/uL (150-450); RBC 4.56 m/uL (4.30-5.90); RDW 14.4 % (11.5-15.5); WBC 14.1 k/uL (3.8-10.6)
[2022-12-02 14:02] LABS: Partial Thromboplastin Time 23.7 sec (22.0-30.0); Prothrombin Time 10.5 sec (9.0-12.0)
[2022-12-02 14:06] LABS: ALT 30 U/L (4-49); AST 22 U/L (17-59); African American GFR (CKD) >90 (>60 ml/min/1.73 sqM); Albumin 4.4 g/dL (3.5-5.0); Alkaline Phosphatase 75 U/L (38-126); Amylase 56 U/L (30-110); Anion Gap 12 mmol/L; Blood Urea Nitrogen 14 mg/dL (9-20); Calcium 9.7 mg/dL (8.4-10.2); Carbon Dioxide 21 mmol/L (22-30); Chloride 101 mmol/L (98-107); Glucose 131 mg/dL (74-99); Lipase 41 U/L (23-300); Non-African American GFR(CKD) >90 (>60 ml/min/1.73 sqM); Potassium 4.7 mmol/L (3.5-5.1); Sodium 134 mmol/L (137-145); Total Bilirubin 0.6 mg/dL (0.2-1.3); Total Protein 7.8 g/dL (6.3-8.2)
[2022-12-02 14:26] LABS: Appearance,Urine Clear (Clear); Bilirubin,Urine Negative (Negative); Blood,Urine Negative (Negative); Color,Urine Light Red; Glucose,Urine (UA) Negative (Negative); Hyaline Casts,Urine 1 /lpf (0-2); Ketones,Urine Negative (Negative); Leukocyte Esterase,Urine Negative (Negative); Mucus,Urine Few /hpf; Nitrite,Urine Negative (Negative); PH, Urine 5.5 (5.0-8.0); Protein,Urine 1+ (Negative); RBC,Urine 1 /hpf (0-5); Specific Gravity,Urine 1.023 (1.001-1.035); Squamous Epithelial Cell,Urine 1 /hpf (0-4); Urobilinogen,Urine <2.0 mg/dL (<2.0); WBC,Urine 1 /hpf (0-5)
--- NOTE | 2022-12-02 14:43 | CT ---
EXAMINATION TYPE: CT abdomen pelvis w con CT DLP: 2670 mGycm, Automated exposure control for dose reduction was used. DATE OF EXAM: 12/02/2022 2:27 PM COMPARISON: CT abdomen pelvis most recent from 11/22/2022, 11/02/2022, 10/27/2022 . CLINICAL INDICATION:Male, 57 years old with history of abdominal pain; Abdominal pain, prior perforat ion TECHNIQUE: Standard CT of the abdomen and pelvis following the administration of 100 cc of Isovue 3 00 IV contrast material. Coronal and sagittal reformats were performed. FINDINGS: LOWER CHEST: The visualized lungs are clear. Mitral annulus calcifications. Coronary artery calcifica tions. ABDOMEN LIVER: Diffusely hypoattenuating parenchyma. GALLBLADDER AND BILE DUCTS: Unremarkable. PANCREAS: Unremarkable. SPLEEN: Unremarkable. ADRENAL GLANDS: Unremarkable. KIDNEYS AND URETERS: No evidence of hydronephrosis or renal calculus. The kidneys enhance symmetrical ly. Contrast demonstrated within both collecting systems on the delayed phase. PELVIS BLADDER: Under distended, limiting evaluation. REPRODUCTIVE: Unremarkable. ABDOMEN & PELVIS STOMACH AND BOWEL: Stomach and duodenum are unremarkable. The appendix is within normal limits. No ev idence of bowel obstruction. PERITONEUM: No organized fluid collection. Trace pneumoperitoneum demonstrated. Redemonstration of ga s and fluid collection with surrounding fat stranding in the mesentery just superior to the sigmoid c olon with associated fistulous tract. There is some foci of hyperdense material within this collectio n redemonstrated likely related to prior contrast administration. This grossly measures again 4.5 x 3 .5 cm, previously 4.7 x 4.6 cm. There is again wall thickening of the sigmoid colon with multiple col onic diverticula and minimal surrounding fat stranding. VASCULATURE: Mild atherosclerotic calcifications are present throughout the abdominal aorta and its b ranches. No evidence of aortic aneurysm. MUSCULOSKELETAL: No acute osseous abnormalities. Mild disc degeneration changes are present throughou t the thoracolumbar spine. LYMPH NODES: No gross evidence for lymphadenopathy. SOFT TISSUE/ABDOMINAL WALL: Unremarkable IMPRESSION: 1. Persistent perforated sigmoid diverticulitis with trace pneumoperitoneum and gas collection measur ing marginally smaller at 4.5 x 3.5 cm, previously 4.7 x 4.6 cm just superior to this region with dec reased fluid most compatible with feces/abscess. 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 S urgical consultation is again recommended. 2. Hepatic steatosis. Findings called to and discussed with Dr. Lee at 2:40 PM on 12/02/2022.
[2022-12-02] MEDS ORDERED: PIPERACILLIN-TAZOBACTAM 3.375 GM in SODIUM CHLORIDE 0.9% 100 ML IVPB STA (15:19)
[2022-12-02] MEDS ORDERED: NALOXONE 0.4 MG/ML 1 ML VIAL IV PRN (16:18)
[2022-12-02] MEDS ORDERED: ALBUTEROL HFA INHALER INHALATION PRN (16:20)
[2022-12-02] MEDS: HYDROmorphone 1 MG/ML 1 ML SYRINGE IVP PRN ×2 (18:57→22:29)
[2022-12-02] MEDS: SODIUM CHLORIDE 0.9% 1,000 ML IV SCH (18:59)
[2022-12-02] MEDS: LORazepam 2 MG/ML INJ IV PRN (19:45)
[2022-12-03] MEDS: HYDROmorphone 1 MG/ML 1 ML SYRINGE IVP PRN ×4 (01:33→10:08)
[2022-12-03] MEDS: LORazepam 2 MG/ML INJ IV PRN ×4 (01:33→22:19)
[2022-12-03] MEDS: SODIUM CHLORIDE 0.9% 1,000 ML IV SCH ×3 (01:37→17:35)
[2022-12-03] MEDS: ONDANSETRON 4 MG/2 ML VIAL IVP PRN (01:46)
[2022-12-03] MEDS: PIPERACILLIN-TAZOBACTAM 3.375 GM in SODIUM CHLORIDE 0.9% 100 ML IVPB SCH ×3 (10:10→23:58)
[2022-12-03] MEDS ORDERED: FAMOTIDINE 20 MG TAB PO PRN (11:47)
[2022-12-03] MEDS ORDERED: HYDROcodone/APAP 7.5-325MG 1 EACH TAB PO PRN (11:48)
[2022-12-03] MEDS ORDERED: SODIUM CHLORIDE 0.9% 2,000 ML IV ONE (12:14)
[2022-12-03] MEDS ORDERED: diphenhydrAMINE 50 MG/ML 1 ML VIAL IVP PRN (12:14)
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
[2022-12-03] MEDS: KETOROLAC 15 MG/ML 1 ML VIAL IVP SCH ×3 (13:01→17:40)
[2022-12-03] MEDS: GABAPENTIN 300 MG CAP PO SCH ×3 (13:02→22:28)
[2022-12-03] MEDS: METOCLOPRAMIDE 5 MG/ML 2 ML VIAL IVP SCH ×2 (13:04→17:36)
[2022-12-03 13:08] LABS: Basophils # (A) 0.1 k/uL (0-0.2); Basophils % (A) 1 %; Eosinophils # (A) 0.3 k/uL (0-0.7); Eosinophils % (A) 3 %; HCT 35.7 % (39.0-53.0); HGB 12.2 gm/dL (13.0-17.5); Lymphocytes # (A) 1.9 k/uL (1.0-4.8); Lymphocytes % (A) 22 %; MCH 29.8 pg (25.0-35.0); MCHC 34.3 g/dL (31.0-37.0); MCV 86.9 fL (80.0-100.0); Mean Platelet Volume 7.5; Monocytes # (A) 0.7 k/uL (0-1.0); Monocytes % (A) 8 %; Neutrophils # (A) 5.4 k/uL (1.3-7.7); Neutrophils % (A) 64 %; Platelet Count 229 k/uL (150-450); RBC 4.11 m/uL (4.30-5.90); RDW 14.6 % (11.5-15.5); WBC 8.5 k/uL (3.8-10.6)
[2022-12-03 13:21] LABS: Prothrombin Time 10.6 sec (9.0-12.0)
[2022-12-03 13:25] LABS: African American GFR (CKD) >90 (>60 ml/min/1.73 sqM); Anion Gap 11 mmol/L; Blood Urea Nitrogen 11 mg/dL (9-20); Calcium 8.8 mg/dL (8.4-10.2); Carbon Dioxide 24 mmol/L (22-30); Chloride 102 mmol/L (98-107); Glucose 110 mg/dL (74-99); Non-African American GFR(CKD) >90 (>60 ml/min/1.73 sqM); Potassium 4.4 mmol/L (3.5-5.1); Sodium 137 mmol/L (137-145)
[2022-12-03] MEDS: ACETAMINOPHEN IV (For NPO) 1,000 MG in EMPTY BAG 1 BAG IVPB SCH ×3 (13:28→23:58)
[2022-12-03] MEDS: PANTOPRAZOLE 40 MG/10 ML VIAL IV SCH (13:52)
[2022-12-03] MEDS: HYDROmorphone PCA 10 MG/50 ML BAG IV SCH (13:55)
[2022-12-03] MEDS: metroNIDAZOLE-NS PMX 500 MG in SALINE 1 100ML.BAG IVPB SCH ×2 (14:06→18:18)
[2022-12-03] MEDS ORDERED: DEXTROSE 50% SYRINGE 50 ML IVP PRN ×2 (14:32)
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
--- NOTE | 2022-12-03 16:04 | P.PN ---
Progress Note - Text Progress Note Date: 12/03/22 He reports improvement in abdominal pain from this morning assessment. "I want chicken broth." Hold diet pending resolved abdominal pain.
[2022-12-03 16:37] LABS: Glucose,Whole Blood 115 mg/dL (70-110)
[2022-12-03] MEDS: INSULIN ASPART (NovoLOG) 100 UNIT/ML VIAL SQ SCH ×2 (16:57→22:08)
[2022-12-03 20:50] LABS: Glucose,Whole Blood 111 mg/dL (70-110)
[2022-12-03] MEDS ORDERED: TICAGRELOR 90 MG TAB PO SCH (21:00)
[2022-12-03] MEDS: hydrALAZINE HCL 25 MG TAB PO SCH (22:19)
[2022-12-03] MEDS: HEPARIN SODIUM,PORCINE 5,000 UNIT/ML 1 ML VIAL SQ SCH (22:19)
[2022-12-04] MEDS: METOCLOPRAMIDE 5 MG/ML 2 ML VIAL IVP SCH ×4 (00:01→17:36)
[2022-12-04] MEDS: KETOROLAC 15 MG/ML 1 ML VIAL IVP SCH ×4 (00:01→17:34)
[2022-12-04] MEDS: metroNIDAZOLE-NS PMX 500 MG in SALINE 1 100ML.BAG IVPB SCH ×4 (00:02→17:44)
[2022-12-04 06:09] LABS: Glucose,Whole Blood 115 mg/dL (70-110)
[2022-12-04 06:09] LABS: Basophils # (A) 0.1 k/uL (0-0.2); Basophils % (A) 1 %; Eosinophils # (A) 0.3 k/uL (0-0.7); Eosinophils % (A) 4 %; HCT 33.2 % (39.0-53.0); HGB 11.5 gm/dL (13.0-17.5); Lymphocytes # (A) 1.9 k/uL (1.0-4.8); Lymphocytes % (A) 28 %; MCH 30.2 pg (25.0-35.0); MCHC 34.6 g/dL (31.0-37.0); MCV 87.3 fL (80.0-100.0); Mean Platelet Volume 8.1; Monocytes # (A) 0.6 k/uL (0-1.0); Monocytes % (A) 9 %; Neutrophils # (A) 3.6 k/uL (1.3-7.7); Neutrophils % (A) 55 %; Platelet Count 172 k/uL (150-450); RDW 14.5 % (11.5-15.5); WBC 6.6 k/uL (3.8-10.6)
[2022-12-04 06:10] LABS: African American GFR (CKD) >90 (>60 ml/min/1.73 sqM); Anion Gap 11 mmol/L; Blood Urea Nitrogen 11 mg/dL (9-20); Calcium 8.1 mg/dL (8.4-10.2); Carbon Dioxide 19 mmol/L (22-30); Chloride 107 mmol/L (98-107); Glucose 88 mg/dL (74-99); Non-African American GFR(CKD) >90 (>60 ml/min/1.73 sqM); Potassium 4.4 mmol/L (3.5-5.1); Sodium 137 mmol/L (137-145)
[2022-12-04] MEDS: SODIUM CHLORIDE 0.9% 1,000 ML IV SCH ×3 (06:14→16:38)
[2022-12-04] MEDS: LORazepam 2 MG/ML INJ IV PRN ×3 (06:18→17:42)
[2022-12-04] MEDS: ACETAMINOPHEN IV (For NPO) 1,000 MG in EMPTY BAG 1 BAG IVPB SCH (06:27)
[2022-12-04] MEDS: LEVOTHYROXINE 100 MCG TAB PO SCH (06:28)
[2022-12-04] MEDS: INSULIN ASPART (NovoLOG) 100 UNIT/ML VIAL SQ SCH ×4 (06:38→20:40)
[2022-12-04] MEDS: PIPERACILLIN-TAZOBACTAM 3.375 GM in SODIUM CHLORIDE 0.9% 100 ML IVPB SCH ×2 (07:57→16:07)
[2022-12-04] MEDS: HYDROmorphone PCA 10 MG/50 ML BAG IV SCH (07:59)
[2022-12-04] MEDS: ASPIRIN 81 MG PO SCH (08:33)
[2022-12-04] MEDS: lisinopriL 20 MG TAB PO SCH (08:34)
[2022-12-04] MEDS: PANTOPRAZOLE 40 MG/10 ML VIAL IV SCH (08:34)
[2022-12-04] MEDS: METOPROLOL SUCCINATE (ER) 50 MG TAB.ER.24H PO SCH (08:34)
[2022-12-04] MEDS: GABAPENTIN 300 MG CAP PO SCH ×3 (08:34→21:14)
[2022-12-04] MEDS: hydrALAZINE HCL 25 MG TAB PO SCH ×2 (08:34→20:25)
[2022-12-04] MEDS: HEPARIN SODIUM,PORCINE 5,000 UNIT/ML 1 ML VIAL SQ SCH ×2 (08:35→20:25)
[2022-12-04] MEDS ORDERED: ATORVASTATIN 80 MG TAB PO SCH (09:00)
--- NOTE | 2022-12-04 12:02 | P.PN ---
Subjective Progress Note Date: 12/04/22 Patient is a 57-year-old male with history of hypertension, dyslipidemia, CAD status post stent, diabetes, hypothyroidism, asthma presenting with worsening lower abdomen pain. Patient was recently admitted for perforated acute sigmoid diverticulitis with abscess, underwent robotic lysis of adhesions, abscess not drained. Patient was discharged home with antibiotics. [facility] was consulted for medical management. In the ED, temperature was 99, pulse 98, respiratory rate 18, blood pressure 127/76, saturating at 96% on room air. Initial WBC was 14.1, now 8.5. Sodium 137, potassium 4.4, creatinine 0.88, lipase 41. 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 12/04 Patient was seen and examined. No acute events overnight. He is on a DELI CLERK pump for pain management. He reports well-controlled pain in his abdomen. He reports nausea but no vomiting. CBC shows hemoglobin of 11.5. BMP shows bicarb of 19 and calcium of 8.1. General surgery was consulted and recommends IV antibiotics and possible surgery if patient does not improve with conservative management. Blood cultures pending. General: non toxic, no distress, appears at stated age Derm: warm, dry Head: atraumatic, normocephalic, symmetric Eyes: EOMI, no lid lag, anicteric sclera Cardiovascular: S1S2 reg, no murmur Lungs: CTA bilateral, no rhonchi, no rales , no accessory muscle use Abdominal: soft, tenderness to palpation in R and LLQ with mild rebound, no guarding, no appreciable organomegaly Ext: no gross muscle atrophy, no edema, no contractures Neuro: no focal neuro deficits Psych: Alert, oriented, appropriate affect Sepsis secondary to perforated sigmoid diverticulitis with abscess formation CAD status post stent Hypertension Dyslipidemia Type 2 diabetes Hypothyroidism Asthma exacerbation Based on my assessment of this patient, this patient meets a high complexity level of care. Patient has an acute diagnosis of sepsis secondary to perforated sigmoid dive rticulitis with abscess formation that poses a threat to life or bodily function. Sepsis secondary to perforated sigmoid diverticulitis with abscess formation: Continue Zosyn 3.375g IV Q8H + Flagyl 500 mg IV Q6H. NPO. Pain control with DELI CLERK pain pump. Continue NS at 130 cc/hr. Blood culture pending. Telemetry monitoring. Surgery on board. CAD status post stent: Continue ASA 81 mg PO QD. Hold Brilinta for possible surgical intervention. Continue Metoprolol 50 mg PO QD. Continue Crestor when OK with surgery. Hypertension: BP 109/70. Continue Metoprolol as above. Continue Hydralazine 25 mg PO BID and Lisinopril 40 mg PO QD. Type 2 diabetes: Insulin sliding scale. Accuchecks ACHS. Hypoglycemic precautions. Hypothyroidism: Continue Synthroid 100 mcg PO QD. Asthma : Albuterol inhaler PRN for SOB/wheezing. I have reviewed the following clinical program consultant notes: Surgery note reviewed. I have reviewed the results of the following tests: CBC, BMP. I have ordered the following tests: CBC, BMP. I have discussed the care of this patient with the following independent historian: I have independently interpreted the following test below: I have discussed the management of this patient with the following physician: This patient has a high risk of morbidity due to the following reasons: Patient is on a Dilaudid DELI CLERK pump for pain control. Objective - Vital Signs Vital signs: Vital Signs Temp 97.4 F L 12/04/22 07:03 Pulse 73 12/04/22 08:33 Resp 16 12/04/22 07:03 BP 109/70 12/04/22 08:33 Pulse Ox 92 L 12/04/22 07:03 FiO2 Intake & Output 12/03/22 12/04/22 12/04/22 18:59 06:59 18:59 Other: Voiding Method Toilet Toilet Toilet Urinal Urinal Urinal # Voids 3 2 - Labs CBC & Chem 7: 12/04/22 04:45 12/04/22 04:45 Labs: Abnormal Lab Results - Last 24 Hours (Table) 12/03/22 12/03/22 12/03/22 Range/Units 12:09 12:09 16:35 RBC 4.11 L (4.30-5.90) m/uL Hgb 12.2 L (13.0-17.5) gm/dL Hct 35.7 L (39.0-53.0) % Carbon Dioxide (22-30) mmol/L Glucose 110 H (74-99) mg/dL POC Glucose (mg/dL) 115 H (70-110) mg/dL Calcium (8.4-10.2) mg/dL 12/03/22 12/04/22 12/04/22 Range/Units 20:43 04:45 04:45 RBC 3.80 L (4.30-5.90) m/uL Hgb 11.5 L (13.0-17.5) gm/dL Hct 33.2 L (39.0-53.0) % Carbon Dioxide 19 L (22-30) mmol/L Glucose (74-99) mg/dL POC Glucose (mg/dL) 111 H (70-110) mg/dL Calcium 8.1 L (8.4-10.2) mg/dL 12/04/22 Range/Units 06:07 RBC (4.30-5.90) m/uL Hgb (13.0-17.5) gm/dL Hct (39.0-53.0) % Carbon Dioxide (22-30) mmol/L Glucose (74-99) mg/dL POC Glucose (mg/dL) 115 H (70-110) mg/dL Calcium (8.4-10.2) mg/dL Microbiology - Last 24 Hours (Table) 12/02/22 13:45 Blood Culture - Preliminary Blood
[2022-12-04 12:29] LABS: Glucose,Whole Blood 112 mg/dL (70-110)
--- NOTE | 2022-12-04 15:37 | P.PN ---
Subjective Progress Note Date: 12/04/22 He reports improvement of his abdominal pain No bowel movement He is on scheduled pain medications WBC improved Recommend PICC line for antibiotics Laparotomy pending clinical course Objective - Vital Signs Vital signs: Vital Signs Temp 97.6 F 12/04/22 14:39 Pulse 92 12/04/22 14:39 Resp 18 12/04/22 14:39 BP 126/76 12/04/22 14:39 Pulse Ox 91 L 12/04/22 14:39 FiO2 Intake & Output 12/03/22 12/04/22 12/04/22 18:59 06:59 18:59 Other: Voiding Method Toilet Toilet Toilet Urinal Urinal Urinal # Voids 3 2 - Labs CBC & Chem 7: 12/04/22 04:45 12/04/22 04:45 Labs: Abnormal Lab Results - Last 24 Hours (Table) 12/03/22 12/03/22 12/04/22 Range/Units 16:35 20:43 04:45 RBC 3.80 L (4.30-5.90) m/uL Hgb 11.5 L (13.0-17.5) gm/dL Hct 33.2 L (39.0-53.0) % Carbon Dioxide (22-30) mmol/L POC Glucose (mg/dL) 115 H 111 H (70-110) mg/dL Calcium (8.4-10.2) mg/dL 12/04/22 12/04/22 12/04/22 Range/Units 04:45 06:07 12:09 RBC (4.30-5.90) m/uL Hgb (13.0-17.5) gm/dL Hct (39.0-53.0) % Carbon Dioxide 19 L (22-30) mmol/L POC Glucose (mg/dL) 115 H 112 H (70-110) mg/dL Calcium 8.1 L (8.4-10.2) mg/dL Microbiology - Last 24 Hours (Table) 12/02/22 13:45 Blood Culture - Preliminary Blood
[2022-12-04 16:34] LABS: Glucose,Whole Blood 101 mg/dL (70-110)
[2022-12-04 20:47] LABS: Glucose,Whole Blood 113 mg/dL (70-110)
[2022-12-05] MEDS: PIPERACILLIN-TAZOBACTAM 3.375 GM in SODIUM CHLORIDE 0.9% 100 ML IVPB SCH ×4 (00:03→23:56)
[2022-12-05] MEDS: HYDROmorphone PCA 10 MG/50 ML BAG IV SCH ×3 (00:04→23:57)
[2022-12-05] MEDS: KETOROLAC 15 MG/ML 1 ML VIAL IVP SCH ×3 (00:04→13:15)
[2022-12-05] MEDS: LORazepam 2 MG/ML INJ IV PRN ×4 (00:07→18:41)
[2022-12-05] MEDS: METOCLOPRAMIDE 5 MG/ML 2 ML VIAL IVP SCH ×5 (00:07→17:20)
[2022-12-05] MEDS: SODIUM CHLORIDE 0.9% 1,000 ML IV SCH ×4 (01:46→23:58)
[2022-12-05] MEDS: metroNIDAZOLE-NS PMX 500 MG in SALINE 1 100ML.BAG IVPB SCH ×5 (01:46→23:56)
[2022-12-05] MEDS: LEVOTHYROXINE 100 MCG TAB PO SCH (05:35)
[2022-12-05 05:55] LABS: Glucose,Whole Blood 104 mg/dL (70-110)
[2022-12-05] MEDS: lisinopriL 20 MG TAB PO SCH (07:20)
[2022-12-05] MEDS: HEPARIN SODIUM,PORCINE 5,000 UNIT/ML 1 ML VIAL SQ SCH ×2 (07:20→20:33)
[2022-12-05] MEDS: ASPIRIN 81 MG PO SCH (07:20)
[2022-12-05] MEDS: METOPROLOL SUCCINATE (ER) 50 MG TAB.ER.24H PO SCH (07:20)
[2022-12-05] MEDS: GABAPENTIN 300 MG CAP PO SCH ×3 (07:20→20:33)
[2022-12-05] MEDS: hydrALAZINE HCL 25 MG TAB PO SCH ×2 (07:20→20:33)
[2022-12-05] MEDS: INSULIN ASPART (NovoLOG) 100 UNIT/ML VIAL SQ SCH ×4 (07:21→21:24)
[2022-12-05 08:49] LABS: HCT 34.3 % (39.0-53.0); HGB 11.7 gm/dL (13.0-17.5); MCH 29.8 pg (25.0-35.0); MCHC 34.1 g/dL (31.0-37.0); MCV 87.3 fL (80.0-100.0); Mean Platelet Volume 7.5; Platelet Count 246 k/uL (150-450); RBC 3.93 m/uL (4.30-5.90); RDW 14.5 % (11.5-15.5); WBC 6.8 k/uL (3.8-10.6)
[2022-12-05 09:03] LABS: African American GFR (CKD) >90 (>60 ml/min/1.73 sqM); Anion Gap 13 mmol/L; Blood Urea Nitrogen 4 mg/dL (9-20); Calcium 8.6 mg/dL (8.4-10.2); Carbon Dioxide 19 mmol/L (22-30); Chloride 107 mmol/L (98-107); Glucose 101 mg/dL (74-99); Non-African American GFR(CKD) >90 (>60 ml/min/1.73 sqM); Potassium 4.2 mmol/L (3.5-5.1); Sodium 139 mmol/L (137-145)
[2022-12-05] MEDS: PANTOPRAZOLE 40 MG/10 ML VIAL IV SCH (09:14)
[2022-12-05 12:29] LABS: Glucose,Whole Blood 93 mg/dL (70-110)
--- NOTE | 2022-12-05 13:01 | P.PN ---
Subjective Progress Note Date: 12/05/22 Patient is a 57-year-old male with history of hypertension, dyslipidemia, CAD status post stent, diabetes, hypothyroidism, asthma presenting with worsening lower abdomen pain. Patient was recently admitted for perforated acute sigmoid diverticulitis with abscess, underwent robotic lysis of adhesions, abscess not drained. Patient was discharged home with antibiotics. [facility] was consulted for medical management. In the ED, temperature was 99, pulse 98, respiratory rate 18, blood pressure 127/76, saturating at 96% on room air. Initial WBC was 14.1, now 8.5. Sodium 137, potassium 4.4, creatinine 0.88, lipase 41. 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 12/04 Patient was seen and examined. No acute events overnight. He is on a STOCK SAW OPERATOR pump for pain management. He reports well-controlled pain in his abdomen. He reports nausea but no vomiting. CBC shows hemoglobin of 11.5. BMP shows bicarb of 19 and calcium of 8.1. General surgery was consulted and recommends IV antibiotics and possible surgery if patient does not improve with conservative management. Blood cultures pending. 12/05 Patient was seen and examined. Passing gas today. He reports continued abdominal pain. CBC shows hemoglobin of 11.7. BMP shows bicarb of 19, BUN of 4 and glucose 101. Blood culture preliminary negative. General: non toxic, no distress, appears at stated age Derm: warm, dry Head: atraumatic, normocephalic, symmetric Eyes: EOMI, no lid lag, anicteric sclera Cardiovascular: S1S2 reg, no murmur Lungs: CTA bilateral, no rhonchi, no rales , no accessory muscle use Abdominal: soft, tenderness to palpation in R and LLQ with mild rebound, no guarding, no appreciable organomegaly Ext: no gross muscle atrophy, no edema, no contractures Neuro: no focal neuro deficits Psych: Alert, oriented, appropriate affect Sepsis secondary to perforated sigmoid diverticulitis with abscess formation CAD status post stent Hypertension Dyslipidemia Type 2 diabetes Hypothyroidism Asthma exacerbation Based on my assessment of this patient, this patient meets a high complexity level of care. Patient has an acute diagnosis of sepsis secondary to perforated sigmoid diverticulitis with abscess formation that poses a threat to life or bodily function. Sepsis secondary to perforated sigmoid diverticulitis with abscess formation: Continue Zosyn 3.375g IV Q8H + Flagyl 500 mg IV Q6H. NPO. Pain control with STOCK SAW OPERATOR pain pump. Continue NS at 130 cc/hr. Blood culture preliminary negative. Telemetry monitoring. Surgery on board. CAD status post stent: Continue ASA 81 mg PO QD. Hold Brilinta for possible surgical intervention. Continue Metoprolol 50 mg PO QD. Continue Crestor when OK with surgery. Hypertension: BP 117/78. Continue Metoprolol as above. Continue Hydralazine 25 mg PO BID and Lisinopril 40 mg PO QD. Type 2 diabetes: Insulin sliding scale. Accuchecks ACHS. Hypoglycemic precautions. Hypothyroidism: Continue Synthroid 100 mcg PO QD. Asthma : Albuterol inhaler PRN for SOB/wheezing. I have reviewed the following relationship consultant notes: Surgery note reviewed. I have reviewed the results of the following tests: CBC, BMP. I have ordered the following tests: CBC, BMP. I have discussed the care of this patient with the following independent historian: I have independently interpreted the following test below: I have discussed the management of this patient with the following physician: This patient has a high risk of morbidity due to the following reasons: Patient is on a Dilaudid STOCK SAW OPERATOR pump for pain control. Objective - Vital Signs Vital signs: Vital Signs Temp 97.8 F 12/05/22 07:17 Pulse 92 12/05/22 07:17 Resp 18 12/05/22 07:17 BP 117/78 12/05/22 07:17 Pulse Ox 93 L 12/05/22 07:17 FiO2 Intake & Output 12/04/22 12/05/22 12/05/22 18:59 06:59 18:59 Intake Total 1560 Balance 1560 Intake: IV 1560 Sodium Chloride 0.9% 1, 1560 000 ml @ 130 mls/hr IV . Q7H42M [facility] Rx#:[id number] Other: Voiding Method Toilet Toilet Urinal Urinal # Voids 1 - Labs CBC & Chem 7: 12/05/22 08:22 12/05/22 08:22 Labs: Abnormal Lab Results - Last 24 Hours (Table) 12/04/22 12/05/22 12/05/22 Range/Units 20:39 08:22 08:22 RBC 3.93 L (4.30-5.90) m/uL Hgb 11.7 L (13.0-17.5) gm/dL Hct 34.3 L (39.0-53.0) % Carbon Dioxide 19 L (22-30) mmol/L BUN 4 L (9-20) mg/dL Glucose 101 H (74-99) mg/dL POC Glucose (mg/dL) 113 H (70-110) mg/dL Microbiology - Last 24 Hours (Table) 12/02/22 13:45 Blood Culture - Preliminary Blood
--- NOTE | 2022-12-05 15:15 | P.PN ---
Subjective Progress Note Date: 12/05/22 CHIEF COMPLAINT: Perforated diverticulitis with abscess HISTORY OF PRESENT ILLNESS: Patient complains of left lower quadrant and suprapubic abdominal pain. He reports the pain is slightly better than yest erday. Denies any bowel movement. He is having flatus. Denies any nausea or vomiting. Afebrile. WBC is 6.6. PHYSICAL EXAM: VITAL SIGNS: Reviewed GENERAL: Well-developed in no acute distress. HEENT: No sclera icterus. Extraocular movements grossly intact. Moist buccal mucosa. Head is atraumatic, normocephalic. Hears conversational speech. No nasal drainage. NECK: Supple without lymphadenopathy. CHEST: Non-labored respirations and equal bilateral excursions. CARDIOVASCULAR: Palpable 2+ radial pulses. ABDOMEN: Soft. Nondistended. Tenderness to palpation on left lower quadrant a nd suprapubic area MUSCULOSKELETAL: No clubbing or cyanosis. NEUROLOGIC: No focal or lateralizing signs. Cranial nerves II through XII grossly intact. PSYCH: Appropriate affect. Alert and oriented to person, place and time. SKIN: Well perfused. Good skin turgor. ASSESSMENT: 1. Perforated sigmoid diverticulitis with abscess 2. Coronary artery disease 3. Chronic antiplatelet therapy 4. Diabetes type 2, [id number] 5. Hypertensive heart disease 6. Chronic pain syndrome 7. History of narcotic abuse PLAN: -Patient continues to want to proceed with IV antibiotic management instead of surgical intervention -Interventional radiology is not available for drainage of the diverticular abscess or PICC line placement. Vascular surgery is not available for PICC line placement either -Continue IV antibiotics -Continue to monitor patient closely -Patient can have broth only -Continue pain management -Hold Brilenta for possible surgical intervention Physician Automotive Worker note has been reviewed by physician. Signing provider agrees with the documented findings, assessment, and plan of care. Objective - Vital Signs Vital signs: Vital Signs Temp 97.8 F 12/05/22 07:17 Pulse 92 12/05/22 07:17 Resp 18 12/05/22 07:17 BP 117/78 12/05/22 07:17 Pulse Ox 93 L 12/05/22 07:17 FiO2 Intake & Output 12/04/22 12/05/22 12/05/22 18:59 06:59 18:59 Intake Total 1560 Balance 1560 Intake: IV 1560 Sodium Chloride 0.9% 1, 1560 000 ml @ 130 mls/hr IV . Q7H42M [facility] Rx#:[id number] Other: Voiding Method Toilet Toilet Urinal Urinal # Voids 1 - Labs CBC & Chem 7: 12/05/22 08:22 12/05/22 08:22 Labs: Abnormal Lab Results - Last 24 Hours (Table) 12/04/22 12/05/22 12/05/22 Range/Units 20:39 08:22 08:22 RBC 3.93 L (4.30-5.90) m/uL Hgb 11.7 L (13.0-17.5) gm/dL Hct 34.3 L (39.0-53.0) % Carbon Dioxide 19 L (22-30) mmol/L BUN 4 L (9-20) mg/dL Glucose 101 H (74-99) mg/dL POC Glucose (mg/dL) 113 H (70-110) mg/dL Microbiology - Last 24 Hours (Table) 12/02/22 13:45 Blood Culture - Preliminary Blood
[2022-12-05 17:01] LABS: Glucose,Whole Blood 93 mg/dL (70-110)
[2022-12-05 20:53] LABS: Glucose,Whole Blood 97 mg/dL (70-110)
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
[2022-12-06] MEDS: LORazepam 2 MG/ML INJ IV PRN ×4 (01:11→21:16)
[2022-12-06 05:35] LABS: Glucose,Whole Blood 86 mg/dL (70-110)
[2022-12-06] MEDS: SODIUM CHLORIDE 0.9% 1,000 ML IV SCH ×2 (05:39→15:46)
[2022-12-06] MEDS: INSULIN ASPART (NovoLOG) 100 UNIT/ML VIAL SQ SCH ×4 (05:39→21:27)
[2022-12-06] MEDS: METOCLOPRAMIDE 5 MG/ML 2 ML VIAL IVP SCH ×3 (05:42→18:10)
[2022-12-06] MEDS: LEVOTHYROXINE 100 MCG TAB PO SCH (05:52)
[2022-12-06] MEDS: metroNIDAZOLE-NS PMX 500 MG in SALINE 1 100ML.BAG IVPB SCH ×3 (05:53→18:10)
[2022-12-06] MEDS: HEPARIN SODIUM,PORCINE 5,000 UNIT/ML 1 ML VIAL SQ SCH ×2 (08:52→21:16)
[2022-12-06] MEDS: GABAPENTIN 300 MG CAP PO SCH ×3 (08:52→21:15)
[2022-12-06] MEDS: PIPERACILLIN-TAZOBACTAM 3.375 GM in SODIUM CHLORIDE 0.9% 100 ML IVPB SCH ×2 (08:52→16:30)
[2022-12-06] MEDS: METOPROLOL SUCCINATE (ER) 50 MG TAB.ER.24H PO SCH (08:53)
[2022-12-06] MEDS: ASPIRIN 81 MG PO SCH (08:53)
[2022-12-06] MEDS: hydrALAZINE HCL 25 MG TAB PO SCH ×2 (08:53→21:15)
[2022-12-06] MEDS: lisinopriL 20 MG TAB PO SCH (08:53)
[2022-12-06] MEDS: PANTOPRAZOLE 40 MG/10 ML VIAL IV SCH (09:26)
[2022-12-06 09:43] LABS: Basophils % (A) 1 %; Eosinophils # (A) 0.2 k/uL (0-0.7); Eosinophils % (A) 5 %; HCT 33.7 % (39.0-53.0); HGB 11.3 gm/dL (13.0-17.5); Lymphocytes # (A) 1.4 k/uL (1.0-4.8); Lymphocytes % (A) 33 %; MCH 29.3 pg (25.0-35.0); MCHC 33.7 g/dL (31.0-37.0); Mean Platelet Volume 7.2; Monocytes # (A) 0.3 k/uL (0-1.0); Monocytes % (A) 7 %; Neutrophils # (A) 2.2 k/uL (1.3-7.7); Neutrophils % (A) 51 %; Platelet Count 226 k/uL (150-450); RBC 3.87 m/uL (4.30-5.90); RDW 14.5 % (11.5-15.5); WBC 4.3 k/uL (3.8-10.6)
--- NOTE | 2022-12-06 11:02 | CDI ---
Documentation Clarification Form Date: 12/06/2022 10:09:23 AM From: Janell Moffett RN CCDS Phone: [phone] Admit Date: 12/02/2022 04:18:00 PM Patient Name: Tom Quinn Visit Number: [id number] Discharge Date: ATTENTION: The Clinical Documentation Specialists (CDI) and [facility] Coding Staff appreciate your assistance in clarifying documentation. Please respond to the clarification below the line at the bottom and electronically sign. The CDI & [facility] Coding staff will review the response and follow-up if needed. Please note: Queries are made part of the Legal Health Record. If you have any questions, please contact the author of this message via ITS. Dr. Isha Zamorano Your patient has Sepsis secondary to perforated sigmoid diverticulitis with abscess formation, documented in the Medicine H&P, 12/03 and in following progress notes through 12/05. Based on this information and the findings below, is there an additional diagnosis that is clinically appropriate for this patient? Patient history/risk factors: 57-year-old male presents to the ED with increased lower abdominal pain and burning sensation. The patient reports his pain is not as severe as his prior hospitalization 10/22 for perforated diverticulitis was treated conservatively with IV antibiotics. Medical History: Asthma, DVT, HTN, HLD, Thyroid disorder and diverticulitis with perforation. 12/03, Medicine H&P. Clinical Indicators: 12/02, VSS: B/P 127/76; HR 98; Temp 99 F Oral; RR 18; SpO2 96% room air. 12/02, Labs: Wbc 14.1; Neutrophils 11.3; 12/03, Medicine consult: He does have some chills, denies any fevers. 12/02, CT ABD/PELVIS: Persistent perforated sigmoid diverticulitis with trace pneumoperitoneum and gas collection with slightly smaller abscess. 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 87, ID Consult for antibiotic therapy: worsening abdominal pain and evidence of perforation diverticulitis with intra-abdominal abscess slightly decreased in size, clinically doubt if he can completely clear of this abscess without any surgical drainage. for now continue patient on Zosyn 3.375 g every 8 hours along with bowel rest with a plan for repeat CT on 12/07/2022 as per discussion with the patient. Treatment: ID consult above, 12/02 Zosyn Ivpb x 1; 12/02 0.9NS IV 130cchr; 12/03 Zosyn Ivpb Q8HR [facility]; 12/03 0.9NS 2L IV bolus x 1; 12/03 Flagyl IVPB Q6HR [facility]. Is there an additional diagnosis that is clinically appropriate for this patient? [ X ] Sepsis [ ] Sepsis Ruled Out [ ] Unable to determine [ ] Other, please specify (Template Last Reviewed: June 2022) [ X ] Sepsis, present on admission KM 1148 12/10/22 GIORGID
[2022-12-06 11:12] LABS: Glucose,Whole Blood 88 mg/dL (70-110)
--- NOTE | 2022-12-06 13:31 | P.PN ---
Subjective Progress Note Date: 12/06/22 Hospital course Patient is a 57-year-old male with history of hypertension, dyslipidemia, CAD s tatus post stent, diabetes, hypothyroidism, asthma presenting with worsening lower abdomen pain. Patient was recently admitted for perforated acute sigmoid diverticulitis with abscess, underwent robotic lysis of adhesions, abscess not drained. Patient was discharged home with antibiotics. [facility] was consulted for medical management. In the ED, temperature was 99, pulse 98, respiratory rate 18, blood pressure 127/76, saturating at 96% on room air. Initial WBC was 14.1, now 8.5. Sodium 137, potassium 4.4, creatinine 0.88, lipase 41. 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 Patient currently on IV Zosyn. Infectious disease is following the patient. Patient admitted to general surgery. Per general surgery patient may need surgery if no improvement. Subjective Patient says that he continues to have lower quadrant abdominal pain. He denies any fever or chills. Physical exam General examination - Alert and Oriented 3 in NAD Heart - + S1S2 no murmurs Lungs - Clear to auscultation Abdomen soft tenderness to palpate in the lower quadrant ND +ve BS Extremities - No edema JOB HONER - Moving all 4 extremities spontaneously Psych - Calm and cooperative Assessment and Plan: Sepsis on admission secondary to perforated sigmoid diverticulitis with abscess formation CAD status post stent Hypertension Dyslipidemia Type 2 diabetes Hypothyroidism Asthma exacerbation Based on my assessment of this patient, this patient meets a high complexity level of care. Patient has an acute diagnosis of sepsis secondary to perforated sigmoid diverticulitis with abscess. Regarding the sepsis from sigmoid diverticulitis and abscess we will continue with Zosyn. Infectious disease on board. Patient on HOME ATTENDANT pump for pain. Blood cultures remain negative. Continue normal saline at 1 30 mL an hour. Per general surgery IR is not available for drainage of the diverticular abscess. Follow up on blood cultures. Patient's WBC has normalized. We'll continue to trend CBC and BMP. Resume home meds CODE STATUS: FULL CODE. DVT prophylaxis: SC heparin Anticipated discharge place: Home Anticipated discharge time: Pending clinical course I have reviewed the following regulatory affairs consultant notes: Infectious disease and general surgery I have reviewed the results of the following tests: CBC I have ordered the following tests: CBC and BMP I have discussed the care of this patient with the following independent hist pasquale: None I have independently interpreted the following test below: None I have discussed the management of this patient with the following physician: None This patient has a high risk of morbidity due to the following reasons: Sepsis with diverticulitis with perforation and abscess Objective - Vital Signs Vital signs: Vital Signs Temp 98 F 12/06/22 07:25 Pulse 91 12/06/22 07:25 Resp 17 12/06/22 07:25 BP 116/72 12/06/22 07:25 Pulse Ox 92 L 12/06/22 07:25 FiO2 Intake & Output 12/05/22 12/06/22 12/06/22 18:59 06:59 18:59 Intake Total 1630 Balance 1630 Intake: Intake, IV Titration 1630 Amount Piperacillin-Tazobactam 3 100 .375 gm In Sodium Chloride 0.9% 100 ml @ 25 mls/hr IVPB Q8HR [facility] Rx# :[id number] Sodium Chloride 0.9% 1, 1430 000 ml @ 130 mls/hr IV . Q7H42M [facility] Rx#:[id number] metroNIDAZOLE-NS PMX 500 100 mg In Saline 1 100ml.bag @ 100 mls/hr IVPB Q6HR [facility] Rx#:[id number] Other: Voiding Method Toilet Urinal # Voids 3 3 - Labs CBC & Chem 7: 12/06/22 09:14 12/05/22 08:22 Labs: Abnormal Lab Results - Last 24 Hours (Table) 12/06/22 Range/Units 09:14 RBC 3.87 L (4.30-5.90) m/uL Hgb 11.3 L (13.0-17.5) gm/dL Hct 33.7 L (39.0-53.0) % Microbiology - Last 24 Hours (Table) 12/02/22 13:45 Blood Culture - Preliminary Blood
--- NOTE | 2022-12-06 14:45 | P.PN ---
Subjective Progress Note Date: 12/06/22 CHIEF COMPLAINT: Perforated diverticulitis with abscess HISTORY OF PRESENT ILLNESS: Patient complains of left lower quadrant and suprapubic abdominal pain. Patient denies any worsening in his abdominal pain. He has been tolerating the broth. He did have some nausea earlier but again it has not worsened and is controlled with antiemetics. He denies any bowel movement. He is having a small amount flatus. He has been up and ambulating. Afebrile. WBC 4.3 PHYSICAL EXAM: VITAL SIGNS: Reviewed GENERAL: Well-developed in no acute distress. HEENT: No sclera icterus. Extraocular movements grossly intact. Moist buccal mucosa. Head is atraumatic, normocephalic. Hears conversational speech. No nasal drainage. NECK: Supple without lymphadenopathy. CHEST: Non-labored respirations and equal bilateral excursions. CARDIOVASCULAR: Palpable 2+ radial pulses. ABDOMEN: Soft. Nondistended. Tenderness to palpation on left lower quadrant and suprapubic area MUSCULOSKELETAL: No clubbing or cyanosis. NEUROLOGIC: No focal or lateralizing signs. Cranial nerves II through XII grossly intact. PSYCH: Appropriate affect. Alert and oriented to person, place and time. SKIN: Well perfused. Good skin turgor. ASSESSMENT: 1. Perforated sigmoid diverticulitis with abscess 2. Coronary artery disease 3. Chronic antiplatelet therapy 4. Diabetes type 2, [id number] 5. Hypertensive heart disease 6. Chronic pain syndrome 7. History of narcotic abuse PLAN: -Patient continues to want to proceed with IV antibiotic management instead of surgical intervention -Interventional radiology is not available for drainage of the diverticular abscess or PICC line placement. Vascular surgery is not available for PICC line placement either -Continue IV antibiotics -Continue to monitor patient closely -Patient can have broth and water only -Continue pain management -Hold Brilenta for possible surgical intervention Physician Spice Cleaner note has been reviewed by physician. Signing provider agrees with the documented findings, assessment, and plan of care. Objective - Vital Signs Vital signs: Vital Signs Temp 97.1 F L 12/06/22 13:34 Pulse 100 12/06/22 13:34 Resp 17 12/06/22 13:34 BP 126/75 12/06/22 13:34 Pulse Ox 94 L 12/06/22 13:34 FiO2 Intake & Output 12/05/22 12/06/22 12/06/22 18:59 06:59 18:59 Intake Total 1630 Balance 1630 Intake: Intake, IV Titration 1630 Amount Piperacillin-Tazobactam 3 100 .375 gm In Sodium Chloride 0.9% 100 ml @ 25 mls/hr IVPB Q8HR [facility] Rx# :[id number] Sodium Chloride 0.9% 1, 1430 000 ml @ 130 mls/hr IV . Q7H42M [facility] Rx#:[id number] metroNIDAZOLE-NS PMX 500 100 mg In Saline 1 100ml.bag @ 100 mls/hr IVPB Q6HR [facility] Rx#:[id number] Other: Voiding Method Toilet Urinal # Voids 3 3 - Labs CBC & Chem 7: 12/06/22 09:14 12/05/22 08:22 Labs: Abnormal Lab Results - Last 24 Hours (Table) 12/06/22 Range/Units 09:14 RBC 3.87 L (4.30-5.90) m/uL Hgb 11.3 L (13.0-17.5) gm/dL Hct 33.7 L (39.0-53.0) % Microbiology - Last 24 Hours (Table) 12/02/22 13:45 Blood Culture - Preliminary Blood
[2022-12-06 17:03] LABS: Glucose,Whole Blood 85 mg/dL (70-110)
[2022-12-06] MEDS: HYDROmorphone PCA 10 MG/50 ML BAG IV SCH (18:01)
[2022-12-06 21:11] LABS: Glucose,Whole Blood 86 mg/dL (70-110)
[2022-12-07] MEDS: SODIUM CHLORIDE 0.9% 1,000 ML IV SCH ×2 (00:47→05:52)
[2022-12-07] MEDS: PIPERACILLIN-TAZOBACTAM 3.375 GM in SODIUM CHLORIDE 0.9% 100 ML IVPB SCH ×4 (00:55→22:54)
[2022-12-07] MEDS: METOCLOPRAMIDE 5 MG/ML 2 ML VIAL IVP SCH ×5 (00:55→22:54)
[2022-12-07] MEDS: metroNIDAZOLE-NS PMX 500 MG in SALINE 1 100ML.BAG IVPB SCH ×5 (00:56→22:52)
[2022-12-07] MEDS: LORazepam 2 MG/ML INJ IV PRN ×4 (03:49→22:43)
[2022-12-07] MEDS: LEVOTHYROXINE 100 MCG TAB PO SCH (06:12)
[2022-12-07] MEDS: INSULIN ASPART (NovoLOG) 100 UNIT/ML VIAL SQ SCH ×4 (07:25→21:43)
[2022-12-07] MEDS: HYDROmorphone PCA 10 MG/50 ML BAG IV SCH ×2 (08:09→20:03)
[2022-12-07] MEDS: PANTOPRAZOLE 40 MG/10 ML VIAL IV SCH (08:10)
[2022-12-07] MEDS: METOPROLOL SUCCINATE (ER) 50 MG TAB.ER.24H PO SCH (08:10)
[2022-12-07] MEDS: ASPIRIN 81 MG PO SCH (08:10)
[2022-12-07] MEDS: HEPARIN SODIUM,PORCINE 5,000 UNIT/ML 1 ML VIAL SQ SCH ×2 (08:10→20:12)
[2022-12-07] MEDS: hydrALAZINE HCL 25 MG TAB PO SCH ×2 (08:10→20:11)
[2022-12-07] MEDS: lisinopriL 20 MG TAB PO SCH (08:10)
[2022-12-07] MEDS: GABAPENTIN 300 MG CAP PO SCH ×3 (08:10→21:32)
[2022-12-07 09:36] LABS: Basophils # (A) 0.07 X 10*3/uL (0.00-0.10); Basophils % (A) 0.8 %; Eosinophils # (A) 0.17 X 10*3/uL (0.04-0.35); HCT 32.9 % (39.6-50.0); HGB 10.6 d/dL (13.0-17.0); Lymphocytes # (A) 1.36 X 10*3/uL (0.90-5.00); Lymphocytes % (A) 16.1 %; MCH 28.5 pg (27.0-32.0); MCHC 32.2 d/dL (32.0-37.0); MCV 88.4 FL (80.0-97.0); Mean Platelet Volume 10.1 FL (9.5-12.2); Monocytes # (A) 0.74 X 10*3/uL (0.20-1.00); Monocytes % (A) 8.8 %; NRBC Per 100 WBC 0 X 10*3/uL (0.00-0.01); Neutrophils # (A) 6.08 X 10*3/uL (1.80-7.70); Neutrophils % (A) 71.9 %; Platelet Count 293 X 10*3/uL (140-440); RBC 3.72 X 10*6/uL (4.40-5.60); RDW 15.3 % (11.5-14.5); WBC 8.45 X 10*3/uL (4.50-10.00)
[2022-12-07 09:41] LABS: BUN/Creat Ratio <5.00 Ratio (12.00-20.00); Blood Urea Nitrogen <3.5 mg/dL (9.0-27.0); Calcium 8.4 mg/dL (8.7-10.3); Carbon Dioxide 16.2 mmol/L (21.6-31.8); Chloride 107 mmol/L (96-109); Glucose 76 mg/dL (70-110); Potassium 4.5 mmol/L (3.5-5.5); Sodium 139 mmol/L (135-145)
[2022-12-07] MEDS: LACTATED RINGERS 1,000 ML IV SCH ×2 (11:13→21:42)
[2022-12-07 11:25] LABS: Glucose,Whole Blood 91 mg/dL (70-110)
--- NOTE | 2022-12-07 14:25 | P.PN ---
Subjective Progress Note Date: 12/07/22 Hospital course Patient is a 57-year-old male with history of hypertension, dyslipidemia, CAD status post stent, diabetes, hypothyroidism, asthma presenting with worsening lower abdomen pain. Patient was recently admitted for perforated acute sigmoid diverticulitis with abscess, underwent robotic lysis of adhesions, abscess not drained. Patient was discharged home with antibiotics. [facility] was consulted for medical management. In the ED, temperature was 99, pulse 98, r espiratory rate 18, blood pressure 127/76, saturating at 96% on room air. Initial WBC was 14.1, now 8.5. Sodium 137, potassium 4.4, creatinine 0.88, lipase 41. 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 Patient currently on IV Zosyn. Infectious disease is following the patient. Patient admitted to general surgery. Per general surgery patient may need surgery if no improvement. Subjective Patient states that he had a bowel movement this morning. He states that he gets intermittent lower quadrant abdominal pain. Physical exam General examination - Alert and Oriented 3 in NAD Heart - + S1S2 no murmurs Lungs - Clear to auscultation Abdomen soft tenderness to palpate in the lower quadrant ND +ve BS Extremities - No edema TRAFFIC CHECKER - Moving all 4 extremities spontaneously Psych - Calm and cooperative Assessment and Plan: Sepsis on admission secondary to perforated sigmoid diverticulitis with abscess formation Metabolic acidosis likely due to sepsis versus iatrogenic from normal saline CAD status post stent Hypertension Dyslipidemia Type 2 diabetes Hypothyroidism Asthma exacerbation Based on my assessment of this patient, this patient meets a high complexity level of care. Patient has an acute diagnosis of sepsis secondary to perforated sigmoid divert iculitis with abscess. Regarding the sepsis from sigmoid diverticulitis and abscess we will continue with Zosyn. Infectious disease on board. Patient on RECYCLING TECH pump for pain. Blood cultures remain negative. Per general surgery IR is not available for drainage of the diverticular abscess. Follow up on blood cultures. Patient's WBC has normalized. We'll continue to trend CBC and BMP. In regards to the metabolic acidosis we'll continue to treat for sepsis as above and I'll switch his normal saline to lactated Ringer's at 135 mL an hour Resume home meds CODE STATUS: FULL CODE. DVT prophylaxis: SC heparin Anticipated discharge place: Home Anticipated discharge time: Pending clinical course I have reviewed the following service consultant notes: Infectious disease and general surgery I have reviewed the results of the following tests: CBC and BMP I have ordered the following tests: CBC and BMP I have discussed the care of this patient with the following independent historian: None I have independently interpreted the following test below: None I have discussed the management of this patient with the following physician: None This patient has a high risk of morbidity due to the following reasons: Sepsis with diverticulitis with perforation and abscess Objective - Vital Signs Vital signs: Vital Signs Temp 98.6 F 12/07/22 07:11 Pulse 91 12/07/22 07:11 Resp 19 12/07/22 07:11 BP 148/84 12/07/22 07:11 Pulse Ox 92 L 12/07/22 07:11 FiO2 Intake & Output 12/06/22 12/07/22 12/07/22 18:59 06:59 18:59 Weight 136.078 kg Other: Voiding Method Toilet Toilet Urinal Urinal # Voids 1 2 - Labs CBC & Chem 7: 12/07/22 05:38 12/07/22 05:38 Labs: Abnormal Lab Results - Last 24 Hours (Table) 12/07/22 12/07/22 Range/Units 05:38 05:38 RBC 3.72 L (4.40-5.60) X 10*6/uL Hgb 10.6 L (13.0-17.0) d/dL Hct 32.9 L (39.6-50.0) % RDW 15.3 H (11.5-14.5) % Carbon Dioxide 16.2 L (21.6-31.8) mmol/L Anion Gap 15.80 H (4.00-12.00) mmol/L BUN <3.5 L (9.0-27.0) mg/dL BUN/Creatinine Ratio <5.00 L (12.00-20.00) Ratio Calcium 8.4 L (8.7-10.3) mg/dL
[2022-12-07 16:38] LABS: Glucose,Whole Blood 100 mg/dL (70-110)
--- NOTE | 2022-12-07 16:42 | P.PN ---
Subjective Progress Note Date: 12/07/22 CHIEF COMPLAINT: Perforated diverticulitis with abscess HISTORY OF PRESENT ILLNESS: Patient complains of left lower quadrant and suprapubic abdominal pain. She did have some increase in pain during a bowel movement yesterday. Bowel movement was small and some flatus. Does have some intermittent nausea. Afebrile. WBC 8.45 PHYSICAL EXAM: VITAL SIGNS: Reviewed GENERAL: Well-developed in no acute distress. HEENT: No sclera icterus. Extraocular movements grossly intact. Moist buccal mucosa. Head is atraumatic, normocephalic. Hears conversational speech. No nasal drainage. NECK: Supple without lymphadenopathy. CHEST: Non-labored respirations and equal bilateral excursions. CARDIOVASCULAR: Palpable 2+ radial pulses. ABDOMEN: Soft. Nondistended. Tenderness to palpation on left lower quadrant and suprapubic area MUSCULOSKELETAL: No clubbing or cyanosis. NEUROLOGIC: No focal or lateralizing signs. Cranial nerves II through XII grossly intact. PSYCH: Appropriate affect. Alert and oriented to person, place and time. SKIN: Well perfused. Good skin turgor. ASSESSMENT: 1. Perforated sigmoid diverticulitis with abscess 2. Coronary artery disease 3. Chronic antiplatelet therapy 4. Diabetes type 2, [id number] 5. Hypertensive heart disease 6. Chronic pain syndrome 7. History of narcotic abuse PLAN: -Patient continues to want to proceed with IV antibiotic management instead of surgical intervention. Patient has been informed we'll plan for surgery on 12/12/2022 if his symptoms have not improved. Patient is agreeable to plan. -Interventional radiology is not available for drainage of the diverticular abscess or PICC line placement. Vascular surgery is not available for PICC line placement either -Continue IV antibiotics -Continue to monitor patient closely -Patient can have broth and water only -Continue pain management -Hold Brilenta for possible surgical intervention Physician [employer] Development Rep note has been reviewed by physician. Signing provider agrees with the documented findings, assessment, and plan of care. Objective - Vital Signs Vital signs: Vital Signs Temp 98.2 F 12/07/22 13:21 Pulse 106 H 12/07/22 13:21 Resp 22 12/07/22 13:21 BP 117/67 12/07/22 13:21 Pulse Ox 92 L 12/07/22 13:21 FiO2 Intake & Output 08/12/2112/07/22 12/07/22 18:59 06:59 18:59 Intake Total 236 Balance 236 Weight 136.078 kg Intake: Oral 236 Other: Voiding Method Toilet Toilet Urinal Urinal # Voids 1 2 - Labs CBC & Chem 7: 12/07/22 05:38 12/07/22 05:38 Labs: Abnormal Lab Results - Last 24 Hours (Table) 12/07/22 12/07/22 Range/Units 05:38 05:38 RBC 3.72 L (4.40-5.60) X 10*6/uL Hgb 10.6 L (13.0-17.0) d/dL Hct 32.9 L (39.6-50.0) % RDW 15.3 H (11.5-14.5) % Carbon Dioxide 16.2 L (21.6-31.8) mmol/L Anion Gap 15.80 H (4.00-12.00) mmol/L BUN <3.5 L (9.0-27.0) mg/dL BUN/Creatinine Ratio <5.00 L (12.00-20.00) Ratio Calcium 8.4 L (8.7-10.3) mg/dL
[2022-12-07] MEDS: ONDANSETRON 4 MG/2 ML VIAL IVP PRN (20:11)
[2022-12-07 21:35] LABS: Glucose,Whole Blood 123 mg/dL (70-110)
[2022-12-08] MEDS: LACTATED RINGERS 1,000 ML IV SCH ×3 (03:26→21:03)
[2022-12-08] MEDS: metroNIDAZOLE-NS PMX 500 MG in SALINE 1 100ML.BAG IVPB SCH ×4 (05:34→23:36)
[2022-12-08] MEDS: LORazepam 2 MG/ML INJ IV PRN ×4 (05:34→23:36)
[2022-12-08] MEDS: METOCLOPRAMIDE 5 MG/ML 2 ML VIAL IVP SCH ×4 (05:34→23:36)
[2022-12-08] MEDS: INSULIN ASPART (NovoLOG) 100 UNIT/ML VIAL SQ SCH ×4 (05:41→20:32)
[2022-12-08] MEDS: LEVOTHYROXINE 100 MCG TAB PO SCH (05:51)
[2022-12-08] MEDS: ASPIRIN 81 MG PO SCH (09:02)
[2022-12-08] MEDS: HEPARIN SODIUM,PORCINE 5,000 UNIT/ML 1 ML VIAL SQ SCH ×2 (09:02→20:39)
[2022-12-08] MEDS: PIPERACILLIN-TAZOBACTAM 3.375 GM in SODIUM CHLORIDE 0.9% 100 ML IVPB SCH ×3 (09:02→23:36)
[2022-12-08] MEDS: hydrALAZINE HCL 25 MG TAB PO SCH ×2 (09:02→20:39)
[2022-12-08] MEDS: GABAPENTIN 300 MG CAP PO SCH ×3 (09:02→20:39)
[2022-12-08] MEDS: lisinopriL 20 MG TAB PO SCH (09:02)
[2022-12-08] MEDS: HYDROmorphone PCA 10 MG/50 ML BAG IV SCH ×2 (09:05→21:53)
[2022-12-08] MEDS: METOPROLOL SUCCINATE (ER) 50 MG TAB.ER.24H PO SCH (09:23)
[2022-12-08] MEDS: PANTOPRAZOLE 40 MG/10 ML VIAL IV SCH (09:23)
[2022-12-08 10:49] LABS: Basophils # (A) 0.04 X 10*3/uL (0.00-0.10); Basophils % (A) 0.6 %; Eosinophils # (A) 0.21 X 10*3/uL (0.04-0.35); HCT 30.5 % (39.6-50.0); HGB 9.7 d/dL (13.0-17.0); Lymphocytes # (A) 1.57 X 10*3/uL (0.90-5.00); Lymphocytes % (A) 22.4 %; MCH 27.7 pg (27.0-32.0); MCHC 31.8 d/dL (32.0-37.0); MCV 87.1 FL (80.0-97.0); Mean Platelet Volume 9.5 FL (9.5-12.2); Monocytes # (A) 0.91 X 10*3/uL (0.20-1.00); NRBC Per 100 WBC 0 X 10*3/uL (0.00-0.01); Neutrophils # (A) 4.25 X 10*3/uL (1.80-7.70); Neutrophils % (A) 60.7 %; Platelet Count 252 X 10*3/uL (140-440); RDW 15.4 % (11.5-14.5)
[2022-12-08 11:01] LABS: BUN/Creat Ratio <5.00 Ratio (12.00-20.00); Blood Urea Nitrogen <3.5 mg/dL (9.0-27.0); Calcium 8.4 mg/dL (8.7-10.3); Carbon Dioxide 21.3 mmol/L (21.6-31.8); Chloride 105 mmol/L (96-109); Glucose 99 mg/dL (70-110); Potassium 3.8 mmol/L (3.5-5.5); Sodium 137 mmol/L (135-145)
--- NOTE | 2022-12-08 11:03 | P.PN ---
Subjective Progress Note Date: 12/08/22 Pt has no new complaints today. Discussed with surgery, plan is to see how well patient does by Monday and if no improvement, will proceed to surgery. Gen: awake, alert HEENT: normocephalic, atraumatic, good hearing acuity, moist mucous membranes Resp: good air exchange, breathing comfortably with no accessory muscle use CVS: good distal perfusion x 4, GI: soft, NTTP, ND : no SPT, no CVAT, young catheter not present MSK: no pitting edema, no clubbing Neuro: non-focal, moving all extremities Psych: cooperative, euthymic mood Hospital course: Patient is a 57-year-old male with history of hypertension, dyslipidemia, CAD status post stent, diabetes, hypothyroidism, asthma presenting with worsening lower abdomen pain. Patient was recently admitted for perforated acute sigmoid diverticulitis with abscess, underwent robotic lysis of adhesions, abscess not drained. Patient was discharged home with antibiotics. [facility] was consulted for medical management. In the ED, temperature was 99, pulse 98, respiratory rate 18, blood pressure 127/76, saturating at 96% on room air. Initial WBC was 14.1, now 8.5. Sodium 137, potassium 4.4, creatinine 0.88, lipase 41. 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 Patient currently on IV Zosyn. Infectious disease is following the patient. Patient admitted to general surgery. Per general surgery patient may need surgery if no improvement. Assessment: Sepsis on admission secondary to perforated sigmoid diverticulitis with abscess formation Metabolic acidosis likely due to sepsis versus iatrogenic from normal saline CAD status post stent Hypertension Dyslipidemia Type 2 diabetes Hypothyroidism Asthma exacerbation Plan: Today, patient is afebrile, 128/77, heart rate 89, 92% on room air. CBC shows anemia of 9.7. Basic metabolic panel shows CO2 of 21, albumin of less than 3.5 Continue Zosyn, Flagyl Continue albuterol 2 puffs every 6 hours when necessary Continue pain control: 1 mg hydromorphone every 3 hours when necessary Continue hydralazine 25 mg twice a day, lisinopril 40 mg daily Continue gabapentin 300 mg 3 times a day Continue levothyroxine 100 g Patient is full code Objective - Vital Signs Vital signs: Vital Signs Temp 98.3 F 12/08/22 07:57 Pulse 89 12/08/22 07:57 Resp 19 12/08/22 07:57 BP 128/77 12/08/22 07:57 Pulse Ox 92 L 12/08/22 07:57 FiO2 Intake & Output 12/07/22 12/08/22 12/08/22 18:59 06:59 18:59 Intake Total 236 1500 Balance 236 1500 Weight 136.078 kg Intake: IV 1500 Sodium Chloride 0.9% 1, 1500 000 ml @ 130 mls/hr IV . Q7H42M [facility] Rx#:[id number] Oral 236 Other: Voiding Method Toilet Toilet Urinal Urinal # Voids 2 1 - Labs CBC & Chem 7: 12/08/22 07:01 12/07/22 05:38 Labs: Abnormal Lab Results - Last 24 Hours (Table) 12/07/22 12/08/22 Range/Units 21:22 07:01 RBC 3.50 L (4.40-5.60) X 10*6/uL Hgb 9.7 L (13.0-17.0) d/dL Hct 30.5 L (39.6-50.0) % MCHC 31.8 L (32.0-37.0) d/dL RDW 15.4 H (11.5-14.5) % POC Glucose (mg/dL) 123 H (70-110) mg/dL Microbiology - Last 24 Hours (Table) 12/02/22 13:45 Blood Culture - Final Blood
[2022-12-08 11:48] LABS: Glucose,Whole Blood 146 mg/dL (70-110)
--- NOTE | 2022-12-08 11:51 | P.PN ---
Subjective Progress Note Date: 12/08/22 CHIEF COMPLAINT: Perforated diverticulitis with abscess HISTORY OF PRESENT ILLNESS: Patient complains of left lower quadrant and suprapubic abdominal pain. Patient reports that his pain is better than yes terday. He is having flatus no bowel movements. Denies any nausea or vomiting. Patient is tired because he did not sleep well. Afebrile. WBC 7.0 Hgb 9.7 platelets 252 sodium is 137 creatinine 0.7 PHYSICAL EXAM: VITAL SIGNS: Reviewed GENERAL: Well-developed in no acute distress. HEENT: No sclera icterus. Extraocular movements grossly intact. Moist buccal mucosa. Head is atraumatic, normocephalic. Hears conversational speech. No nasal drainage. NECK: Supple without lymphadenopathy. CHEST: Non-labored respirations and equal bilateral excursions. CARDIOVASCULAR: Palpable 2+ radial pulses. ABDOMEN: Soft. Nondistended. Tenderness to palpation on left lower quadrant and suprapubic area MUSCULOSKELETAL: No clubbing or cyanosis. NEUROLOGIC: No focal or lateralizing signs. Cranial nerves II through XII grossly intact. PSYCH: Appropriate affect. Alert and oriented to person, place and time. SKIN: Well perfused. Good skin turgor. ASSESSMENT: 1. Perforated sigmoid diverticulitis with abscess 2. Coronary artery disease 3. Chronic antiplatelet therapy 4. Diabetes type 2, [id number]-ricckxglf 5. Hypertensive heart disease 6. Chronic pain syndrome 7. History of narcotic abuse PLAN: -Patient continues to want to proceed with IV antibiotic management instead of surgical intervention. Patient has been informed we'll plan for surgery on 12/12/2022 if his symptoms have not improved. Patient is agreeable to plan. -Interventional radiology is not available for drainage of the diverticular abscess or PICC line placement. Vascular surgery is not available for PICC line placement either -Continue IV antibiotics -Continue to monitor patient closely -Patient can have broth and water only -Continue pain management -Hold Brilenta for possible surgical intervention Physician [employer] Well[employer] Coordinator note has been reviewed by physician. Signing provider agrees with the documented findings, assessment, and plan of care. Objective - Vital Signs Vital signs: Vital Signs Temp 98.3 F 12/08/22 07:57 Pulse 89 12/08/22 07:57 Resp 19 12/08/22 07:57 BP 128/77 12/08/22 07:57 Pulse Ox 92 L 12/08/22 07:57 FiO2 Intake & Output 12/07/22 12/08/22 12/08/22 18:59 06:59 18:59 Intake Total 236 1500 Balance 236 1500 Weight 136.078 kg Intake: IV 1500 Sodium Chloride 0.9% 1, 1500 000 ml @ 130 mls/hr IV . Q7H42M [facility] Rx#:[id number] Oral 236 Other: Voiding Method Toilet Toilet Urinal Urinal # Voids 2 1 - Labs CBC & Chem 7: 12/08/22 07:01 12/08/22 07:01 Labs: Abnormal Lab Results - Last 24 Hours (Table) 12/07/22 12/08/22 12/08/22 Range/Units 21:22 07:01 07:01 RBC 3.50 L (4.40-5.60) X 10*6/uL Hgb 9.7 L (13.0-17.0) d/dL Hct 30.5 L (39.6-50.0) % MCHC 31.8 L (32.0-37.0) d/dL RDW 15.4 H (11.5-14.5) % Carbon Dioxide 21.3 L (21.6-31.8) mmol/L BUN <3.5 L (9.0-27.0) mg/dL BUN/Creatinine Ratio <5.00 L (12.00-20.00) Ratio POC Glucose (mg/dL) 123 H (70-110) mg/dL Calcium 8.4 L (8.7-10.3) mg/dL 12/08/22 Range/Units 11:47 RBC (4.40-5.60) X 10*6/uL Hgb (13.0-17.0) d/dL Hct (39.6-50.0) % MCHC (32.0-37.0) d/dL RDW (11.5-14.5) % Carbon Dioxide (21.6-31.8) mmol/L BUN (9.0-27.0) mg/dL BUN/Creatinine Ratio (12.00-20.00) Ratio POC Glucose (mg/dL) 146 H (70-110) mg/dL Calcium (8.7-10.3) mg/dL Microbiology - Last 24 Hours (Table) 12/02/22 13:45 Blood Culture - Final Blood
[2022-12-08 16:09] LABS: Glucose,Whole Blood 117 mg/dL (70-110)
--- NOTE | 2022-12-08 16:17 | P.PN ---
Subjective Progress Note Date: 12/08/22 Principal diagnosis: Perforated diverticulitis and intra-abdominal abscess Patient is a 57 year male with a recent admission to the hospital with perforated diverticulitis and abscess status post laparoscopic drainage culture were negative patient received 2 weeks of IV antibiotic in the hospital subsequent discharged on oral antibiotic and presented back to the hospital with worsening abdominal pain, patient did have CT of abdominal pelvis which did shows trace peritoneal and abscess. On today's evaluation that is 12/08/2022, the patient continues to be afebrile, the patient is breathing comfortably on room air, patient denies chest pain shortness of breath, the patient abdominal pain is controlled with pain medication, the patient did have some nausea but no vomiting and did not have any bowel movement Patient white count is 7.0, hemoglobin is 9.7 creatinine 0.7 blood culture has been negative Objective - Vital Signs Vital signs: Vital Signs Temp 98.3 F 12/08/22 07:57 Pulse 89 12/08/22 07:57 Resp 19 12/08/22 07:57 BP 128/77 12/08/22 07:57 Pulse Ox 92 L 12/08/22 07:57 FiO2 Intake & Output 12/07/22 12/08/22 12/08/22 18:59 06:59 18:59 Intake Total 236 1500 236 Balance 236 1500 236 Weight 136.078 kg Intake: IV 1500 Sodium Chloride 0.9% 1, 1500 000 ml @ 130 mls/hr IV . Q7H42M [facility] Rx#:[id number] Oral 236 236 Other: Voiding Method Toilet Toilet Urinal Urinal # Voids 2 1 - Exam GENERAL DESCRIPTION: Middle-age male lying in bed in no distress RESPIRATORY SYSTEM: Unlabored breathing , clear to auscultation anteriorly HEART: S1 S2 regular rate and rhythm , ABDOMEN: Soft , mild distention and tenderness EXTREMITIES: No edema feet - Labs CBC & Chem 7: 12/08/22 07:01 12/08/22 07:01 Labs: Abnormal Lab Results - Last 24 Hours (Table) 12/07/22 12/08/22 12/08/22 Range/Units 21:22 07:01 07:01 RBC 3.50 L (4.40-5.60) X 10*6/uL Hgb 9.7 L (13.0-17.0) d/dL Hct 30.5 L (39.6-50.0) % MCHC 31.8 L (32.0-37.0) d/dL RDW 15.4 H (11.5-14.5) % Carbon Dioxide 21.3 L (21.6-31.8) mmol/L BUN <3.5 L (9.0-27.0) mg/dL BUN/Creatinine Ratio <5.00 L (12.00-20.00) Ratio POC Glucose (mg/dL) 123 H (70-110) mg/dL Calcium 8.4 L (8.7-10.3) mg/dL 12/08/22 Range/Units 11:47 RBC (4.40-5.60) X 10*6/uL Hgb (13.0-17.0) d/dL Hct (39.6-50.0) % MCHC (32.0-37.0) d/dL RDW (11.5-14.5) % Carbon Dioxide (21.6-31.8) mmol/L BUN (9.0-27.0) mg/dL BUN/Creatinine Ratio (12.00-20.00) Ratio POC Glucose (mg/dL) 146 H (70-110) mg/dL Calcium (8.7-10.3) mg/dL Microbiology - Last 24 Hours (Table) 12/02/22 13:45 Blood Culture - Final Blood Assessment and Plan (1) Diverticulitis of intestine, part unspecified, with perforation and abscess without bleeding Current Visit: No Status: Acute Code(s): K57.80 - DVTRCLI OF INTEST, PART UNSP, W PERF AND ABSCESS W/O BLEED SNOMED Code(s): 035360297 (2) Intra-abdominal abscess Current Visit: No Status: Acute Code(s): K65.1 - PERITONEAL ABSCESS SNOMED Code(s): 17800477 Plan: 1patient with intra-abdominal abscess from perforated diverticulitis in this patient with a previous laparoscopic drainage of the abscess and cultures were negative now presented back to the hospital with worsening abdominal pain and evidence of perforation diverticulitis with intra-abdominal abscess slightly decreased in size, with a previous laparoscopic drainage culture did not grow any bacteria 2- patient is afebrile and the patient white count is normal 3- the patient is currently being treated medically with nonavailability of IR, patient continue with Zosyn 3.375 g every 8 hours along with bowel rest possible repeat CT on Monday and evaluation by IR Patient did have multiple questions consult was also elevated to Dictation was produced using [employer] dictation software. please excuse any grammatical, word or spelling errors. Time with Patient: Less than 30
[2022-12-08 20:36] LABS: Glucose,Whole Blood 113 mg/dL (70-110)
[2022-12-09] MEDS: LACTATED RINGERS 1,000 ML IV SCH ×4 (03:34→23:32)
[2022-12-09 06:04] LABS: Glucose,Whole Blood 109 mg/dL (70-110)
[2022-12-09] MEDS: INSULIN ASPART (NovoLOG) 100 UNIT/ML VIAL SQ SCH ×4 (06:12→20:35)
[2022-12-09] MEDS: METOCLOPRAMIDE 5 MG/ML 2 ML VIAL IVP SCH ×4 (06:18→23:32)
[2022-12-09] MEDS: LEVOTHYROXINE 100 MCG TAB PO SCH (06:19)
[2022-12-09] MEDS: metroNIDAZOLE-NS PMX 500 MG in SALINE 1 100ML.BAG IVPB SCH ×4 (06:19→23:32)
[2022-12-09] MEDS: LORazepam 2 MG/ML INJ IV PRN ×3 (06:19→20:39)
[2022-12-09] MEDS: PIPERACILLIN-TAZOBACTAM 3.375 GM in SODIUM CHLORIDE 0.9% 100 ML IVPB SCH ×3 (08:45→23:32)
[2022-12-09] MEDS: PANTOPRAZOLE 40 MG/10 ML VIAL IV SCH (08:46)
[2022-12-09] MEDS: hydrALAZINE HCL 25 MG TAB PO SCH ×2 (08:47→20:39)
[2022-12-09] MEDS: GABAPENTIN 300 MG CAP PO SCH ×3 (08:47→20:39)
[2022-12-09] MEDS: METOPROLOL SUCCINATE (ER) 50 MG TAB.ER.24H PO SCH (08:47)
[2022-12-09] MEDS: lisinopriL 20 MG TAB PO SCH (08:47)
[2022-12-09] MEDS: HEPARIN SODIUM,PORCINE 5,000 UNIT/ML 1 ML VIAL SQ SCH ×2 (08:47→20:39)
[2022-12-09] MEDS: ASPIRIN 81 MG PO SCH (08:47)
[2022-12-09 11:20] LABS: Glucose,Whole Blood 102 mg/dL (70-110)
[2022-12-09] MEDS: HYDROmorphone PCA 10 MG/50 ML BAG IV SCH ×2 (12:23→21:13)
--- NOTE | 2022-12-09 12:53 | P.PN ---
Subjective Progress Note Date: 12/09/22 CHIEF COMPLAINT: Perforated diverticulitis with abscess HISTORY OF PRESENT ILLNESS: Patient complains of left lower quadrant and suprapubic abdominal pain. Patient reports that his pain continues to improve. He did have a bowel movement. But does have increase in abdominal pain with bowel movements. Denies any vomiting. Has had some nausea. Afebrile. PHYSICAL EXAM: VITAL SIGNS: Reviewed GENERAL: Well-developed in no acute distress. HEENT: No sclera icterus. Extraocular movements grossly intact. Moist buccal mucosa. Head is atraumatic, normocephalic. Hears conversational speech. No nasal drainage. NECK: Supple without lymphadenopathy. CHEST: Non-labored respirations and equal bilateral excursions. CARDIOVASCULAR: Palpable 2+ radial pulses. ABDOMEN: Soft. Nondistended. Tenderness to palpation across lower abdomen MUSCULOSKELETAL: No clubbing or cyanosis. NEUROLOGIC: No focal or lateralizing signs. Cranial nerves II through XII grossly intact. PSYCH: Appropriate affect. Alert and oriented to person, place and time. SKIN: Well perfused. Good skin turgor. ASSESSMENT: 1. Perforated sigmoid diverticulitis with abscess 2. Coronary artery disease 3. Chronic antiplatelet therapy 4. Diabetes type 2, [id number]-sahigzihm 5. Hypertensive heart disease 6. Chronic pain syndrome 7. History of narcotic abuse PLAN: -Computed tomography scan of abdomen and pelvis with oral and IV contrast ordered for Monday for further evaluation of patient's diverticulitis perfora tion and abscess. -Patient is tentatively boarded for surgery on 12/12/2022 -Patient continues to want to proceed with IV antibiotic management instead of surgical intervention. Patient has been informed we'll plan for surgery on 12/12/2022 if his symptoms have not improved. Patient is agreeable to plan. -Interventional radiology is not available for drainage of the diverticular a bscess or PICC line placement. Vascular surgery is not available for PICC line placement either -Advance diet to full liquids -Continue IV antibiotics -Continue to monitor patient closely -Continue pain management -Hold Brilenta for possible surgical intervention Physician Umbrella Tipper Machine note has been reviewed by physician. Signing provider agrees with the documented findings, assessment, and plan of care. Objective - Vital Signs Vital signs: Vital Signs Temp 98.7 F 12/09/22 07:16 Pulse 88 12/09/22 07:16 Resp 21 12/09/22 07:16 BP 118/75 12/09/22 07:16 Pulse Ox 94 L 12/09/22 07:16 FiO2 Intake & Output 12/08/22 12/09/22 12/09/22 18:59 06:59 18:59 Intake Total 236 Balance 236 Intake: Oral 236 Other: Voiding Method Toilet Toilet Toilet Urinal Urinal Urinal # Voids 2 2 - Labs CBC & Chem 7: 12/08/22 07:01 12/08/22 07:01 Labs: Abnormal Lab Results - Last 24 Hours (Table) 12/08/22 12/08/22 Range/Units 16:08 20:35 POC Glucose (mg/dL) 117 H 113 H (70-110) mg/dL
--- NOTE | 2022-12-09 14:18 | P.PN ---
Subjective Progress Note Date: 12/09/22 Pt has no new complaints today. Discussed with surgery, will proceed to surgery on Monday. Gen: awake, alert HEENT: normocephalic, atraumatic, good hearing acuity, moist mucous membranes Resp: good air exchange, breathing comfortably with no accessory muscle use CVS: good distal perfusion x 4, GI: soft, NTTP, ND : no SPT, no CVAT, young catheter not present MSK: no pitting edema, no clubbing Neuro: non-focal, moving all extremities Psych: cooperative, euthymic mood Hospital course: Patient is a 57-year-old male with history of hypertension, dyslipidemia, CAD status post stent, diabetes, hypothyroidism, asthma presenting with worsening lower abdomen pain. Patient was recently admitted for perforated acute sigmoid diverticulitis with abscess, underwent robotic lysis of adhesions, abscess not drained. Patient was discharged home with antibiotics. [facility] was consulted for medical management. In the ED, temperature was 99, pulse 98, respiratory rate 18, blood pressure 127/76, saturating at 96% on room air. Initial WBC was 14.1, now 8.5. Sodium 137, potassium 4.4, creatinine 0.88, lipase 41. 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 Patient currently on IV Zosyn. Infectious disease is following the patient. Patient admitted to general surgery. Per general surgery patient may need surgery if no improvement. Assessment: Sepsis on admission secondary to perforated sigmoid diverticulitis with abscess formation Metabolic acidosis likely due to sepsis versus iatrogenic from normal saline CAD status post stent Hypertension Dyslipidemia Type 2 diabetes Hypothyroidism Asthma exacerbation Plan: Continue Zosyn, Flagyl Continue albuterol 2 puffs every 6 hours when necessary Continue pain control: 1 mg hydromorphone every 3 hours when necessary Continue hydralazine 25 mg twice a day, lisinopril 40 mg daily Continue gabapentin 300 mg 3 times a day Continue levothyroxine 100 g Patient is full code Objective - Vital Signs Vital signs: Vital Signs Temp 98.7 F 12/09/22 07:16 Pulse 88 12/09/22 07:16 Resp 21 12/09/22 07:16 BP 118/75 12/09/22 07:16 Pulse Ox 94 L 12/09/22 07:16 FiO2 Intake & Output 12/08/22 12/09/22 12/09/22 18:59 06:59 18:59 Intake Total 236 Balance 236 Intake: Oral 236 Other: Voiding Method Toilet Toilet Toilet Urinal Urinal Urinal # Voids 2 2 - Labs CBC & Chem 7: 12/08/22 07:01 12/08/22 07:01 Labs: Abnormal Lab Results - Last 24 Hours (Table) 12/08/22 12/08/22 Range/Units 16:08 20:35 POC Glucose (mg/dL) 117 H 113 H (70-110) mg/dL
[2022-12-09 16:13] LABS: Glucose,Whole Blood 129 mg/dL (70-110)
[2022-12-09 20:29] LABS: Glucose,Whole Blood 120 mg/dL (70-110)
[2022-12-10] MEDS: LORazepam 2 MG/ML INJ IV PRN ×4 (04:04→21:30)
[2022-12-10] MEDS: ONDANSETRON 4 MG/2 ML VIAL IVP PRN (04:07)
[2022-12-10] MEDS: INSULIN ASPART (NovoLOG) 100 UNIT/ML VIAL SQ SCH ×4 (06:04→21:32)
[2022-12-10] MEDS: metroNIDAZOLE-NS PMX 500 MG in SALINE 1 100ML.BAG IVPB SCH ×3 (06:35→17:08)
[2022-12-10] MEDS: METOCLOPRAMIDE 5 MG/ML 2 ML VIAL IVP SCH ×3 (06:35→17:08)
[2022-12-10] MEDS: LEVOTHYROXINE 100 MCG TAB PO SCH (06:35)
[2022-12-10] MEDS: hydrALAZINE HCL 25 MG TAB PO SCH ×2 (09:36→21:31)
[2022-12-10] MEDS: lisinopriL 20 MG TAB PO SCH (09:36)
[2022-12-10] MEDS: ASPIRIN 81 MG PO SCH (09:36)
[2022-12-10] MEDS: GABAPENTIN 300 MG CAP PO SCH ×3 (09:36→21:31)
[2022-12-10] MEDS: HEPARIN SODIUM,PORCINE 5,000 UNIT/ML 1 ML VIAL SQ SCH ×2 (09:36→21:31)
[2022-12-10] MEDS: METOPROLOL SUCCINATE (ER) 50 MG TAB.ER.24H PO SCH (09:36)
[2022-12-10] MEDS: PANTOPRAZOLE 40 MG/10 ML VIAL IV SCH (09:37)
[2022-12-10] MEDS: PIPERACILLIN-TAZOBACTAM 3.375 GM in SODIUM CHLORIDE 0.9% 100 ML IVPB SCH ×2 (09:40→16:20)
--- NOTE | 2022-12-10 09:48 | P.PN ---
Subjective Progress Note Date: 12/10/22 Principal diagnosis: Diverticulitis Patient says he is doing about the same. Some discomfort when drinking liquids. T-max 99.5. He is having bowel movements. Objective - Vital Signs Vital signs: Vital Signs Temp 97.8 F 12/10/22 06:57 Pulse 80 12/10/22 06:57 Resp 17 12/10/22 06:57 BP 108/61 12/10/22 06:57 Pulse Ox 92 L 12/10/22 06:57 FiO2 Intake & Output 12/09/22 12/10/22 12/10/22 18:59 06:59 18:59 Weight 136.078 kg Other: Voiding Method Toilet Urinal # Voids 1 2 # Bowel Movements 1 - Exam Abdomen: Soft, mild left lower quadrant tenderness, no rebound or guarding - Labs CBC & Chem 7: 12/08/22 07:01 12/08/22 07:01 Labs: Abnormal Lab Results - Last 24 Hours (Table) 12/09/22 12/09/22 Range/Units 16:12 20:27 POC Glucose (mg/dL) 129 H 120 H (70-110) mg/dL Assessment and Plan (1) Diverticulitis Narrative/Plan: 57-year-old male with diverticulitis and possible abscess. Continue full liquids. Continue antibiotics. Repeat CAT scan Monday. Current Visit: Yes Status: Acute Code(s): K57.92 - DVTRCLI OF INTEST, PART UNSP, W/O PERF OR ABSCESS W/O BLEED SNOMED Code(s): 517484892
[2022-12-10 11:17] LABS: Glucose,Whole Blood 118 mg/dL (70-110)
[2022-12-10] MEDS: HYDROmorphone PCA 10 MG/50 ML BAG IV SCH (13:17)
--- NOTE | 2022-12-10 13:24 | P.PN ---
Subjective Progress Note Date: 12/10/22 Pt has no new complaints today. Zosyn dropped off the MAR today. Discussed with pharmacology, renewed prescription. Gen: awake, alert HEENT: normocephalic, atraumatic, good hearing acuity, moist mucous membranes Resp: good air exchange, breathing comfortably with no accessory muscle use CVS: good distal perfusion x 4, GI: soft, NTTP, ND : no SPT, no CVAT, young catheter not present MSK: no pitting edema, no clubbing Neuro: non-focal, moving all extremities Psych: cooperative, euthymic mood Hospital course: Patient is a 57-year-old male with history of hypertension, dyslipidemia, CAD status post stent, diabetes, hypothyroidism, asthma presenting with worsening lower abdomen pain. Patient was recently admitted for perforated acute sigmoid diverticulitis with abscess, underwent robotic lysis of adhesions, abscess not drained. Patient was discharged home with antibiotics. [facility] was consulted for medical management. In the ED, temperature was 99, pulse 98, respiratory rate 18, blood pressure 127/76, saturating at 96% on room air. Initial WBC was 14.1, now 8.5. Sodium 137, potassium 4.4, creatinine 0.88, lipase 41. 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 Patient currently on IV Zosyn. Infectious disease is following the patient. Patient admitted to general surgery. Per general surgery patient may need surgery if no improvement. Assessment: Sepsis on admission secondary to perforated sigmoid diverticulitis with abscess formation Metabolic acidosis likely due to sepsis versus iatrogenic from normal saline CAD status post stent Hypertension Dyslipidemia Type 2 diabetes Hypothyroidism Asthma exacerbation Plan: Continue Zosyn, Flagyl, discussed with pharmacy. Continue albuterol 2 puffs every 6 hours when necessary Continue pain control: 1 mg hydromorphone every 3 hours when necessary Continue hydralazine 25 mg twice a day, lisinopril 40 mg daily Continue gabapentin 300 mg 3 times a day Continue levothyroxine 100 g Patient is full code Objective - Vital Signs Vital signs: Vital Signs Temp 97.8 F 12/10/22 06:57 Pulse 80 12/10/22 09:49 Resp 17 12/10/22 09:49 BP 108/61 12/10/22 06:57 Pulse Ox 92 L 12/10/22 06:57 FiO2 Intake & Output 12/09/22 12/10/22 12/10/22 18:59 06:59 18:59 Weight 136.078 kg Other: Voiding Method Toilet Toilet Urinal Urinal # Voids 1 2 # Bowel Movements 1 - Labs CBC & Chem 7: 12/08/22 07:01 12/08/22 07:01 Labs: Abnormal Lab Results - Last 24 Hours (Table) 12/09/22 12/09/22 12/10/22 Range/Units 16:12 20:27 11:16 POC Glucose (mg/dL) 129 H 120 H 118 H (70-110) mg/dL
[2022-12-10 16:54] LABS: Glucose,Whole Blood 112 mg/dL (70-110)
[2022-12-10] MEDS: LACTATED RINGERS 1,000 ML IV SCH ×2 (19:30→19:32)
[2022-12-11] MEDS: metroNIDAZOLE-NS PMX 500 MG in SALINE 1 100ML.BAG IVPB SCH ×4 (00:01→17:59)
[2022-12-11] MEDS: PIPERACILLIN-TAZOBACTAM 3.375 GM in SODIUM CHLORIDE 0.9% 100 ML IVPB SCH ×3 (00:01→16:05)
[2022-12-11] MEDS: METOCLOPRAMIDE 5 MG/ML 2 ML VIAL IVP SCH ×4 (00:02→17:58)
[2022-12-11] MEDS: HYDROmorphone PCA 10 MG/50 ML BAG IV SCH ×2 (01:29→22:58)
[2022-12-11] MEDS: LORazepam 2 MG/ML INJ IV PRN ×4 (03:59→22:01)
[2022-12-11] MEDS: LACTATED RINGERS 1,000 ML IV SCH ×3 (04:00→21:56)
[2022-12-11] MEDS: LEVOTHYROXINE 100 MCG TAB PO SCH (06:21)
[2022-12-11] MEDS: INSULIN ASPART (NovoLOG) 100 UNIT/ML VIAL SQ SCH ×4 (07:02→21:56)
[2022-12-11] MEDS: PANTOPRAZOLE 40 MG/10 ML VIAL IV SCH (08:09)
[2022-12-11] MEDS: lisinopriL 20 MG TAB PO SCH (08:09)
[2022-12-11] MEDS: METOPROLOL SUCCINATE (ER) 50 MG TAB.ER.24H PO SCH (08:09)
[2022-12-11] MEDS: ASPIRIN 81 MG PO SCH (08:09)
[2022-12-11] MEDS: HEPARIN SODIUM,PORCINE 5,000 UNIT/ML 1 ML VIAL SQ SCH ×2 (08:09→20:57)
[2022-12-11] MEDS: GABAPENTIN 300 MG CAP PO SCH ×3 (08:09→20:56)
[2022-12-11] MEDS: hydrALAZINE HCL 25 MG TAB PO SCH ×2 (08:09→20:56)
[2022-12-11 08:46] LABS: African American GFR (CKD) >90 (>60 ml/min/1.73 sqM); Anion Gap 5 mmol/L; Blood Urea Nitrogen <2 mg/dL (9-20); Calcium 7.7 mg/dL (8.4-10.2); Carbon Dioxide 30 mmol/L (22-30); Chloride 100 mmol/L (98-107); Glucose 144 mg/dL (74-99); Non-African American GFR(CKD) >90 (>60 ml/min/1.73 sqM); Potassium 3.2 mmol/L (3.5-5.1); Sodium 135 mmol/L (137-145)
[2022-12-11 09:06] LABS: Basophils % (A) 1 %; Eosinophils # (A) 0.2 k/uL (0-0.7); Eosinophils % (A) 4 %; HCT 29.9 % (39.0-53.0); Lymphocytes # (A) 1.3 k/uL (1.0-4.8); Lymphocytes % (A) 23 %; MCHC 33.4 g/dL (31.0-37.0); MCV 86.8 fL (80.0-100.0); Mean Platelet Volume 7.8; Monocytes # (A) 0.5 k/uL (0-1.0); Monocytes % (A) 9 %; Neutrophils # (A) 3.3 k/uL (1.3-7.7); Neutrophils % (A) 61 %; Platelet Count 258 k/uL (150-450); RBC 3.45 m/uL (4.30-5.90); RDW 15.5 % (11.5-15.5); WBC 5.5 k/uL (3.8-10.6)
[2022-12-11] MEDS ORDERED: POTASSIUM CHLORIDE ER 20 MEQ TAB.ER PO STA (10:30)
--- NOTE | 2022-12-11 10:31 | P.PN ---
Subjective Progress Note Date: 12/11/22 Pt has no new complaints today. K is low at 3.2 Gen: awake, alert HEENT: normocephalic, atraumatic, good hearing acuity, moist mucous membranes Resp: good air exchange, breathing comfortably with no accessory muscle use CVS: good distal perfusion x 4, GI: soft, NTTP, ND : no SPT, no CVAT, young catheter not present MSK: no pitting edema, no clubbing Neuro: non-focal, moving all extremities Psych: cooperative, euthymic mood Hospital course: Patient is a 57-year-old male with history of hypertension, dyslipidemia, CAD status post stent, diabetes, hypothyroidism, asthma presenting with worsening lower abdomen pain. Patient was recently admitted for perforated acute sigmoid diverticulitis with abscess, underwent robotic lysis of adhesions, abscess not drained. Patient was discharged home with antibiotics. [facility] [place] [facility] was consulted for medical management. In the ED, temperature was 99, pulse 98, respiratory rate 18, blood pressure 127/76, saturating at 96% on room air. Initial WBC was 14.1, now 8.5. Sodium 137, potassium 4.4, creatinine 0.88, lipase 41. 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 Patient currently on IV Zosyn. Infectious disease is following the patient. Patient admitted to general surgery. Per general surgery patient may need surgery if no improvement. Assessment: Sepsis on admission secondary to perforated sigmoid diverticulitis with abscess formation Metabolic acidosis likely due to sepsis versus iatrogenic from normal saline CAD status post stent Hypertension Dyslipidemia Type 2 diabetes Hypothyroidism Asthma exacerbation Plan: K is 3.2 Continue Zosyn, Flagyl, discussed with pharmacy. Continue albuterol 2 puffs every 6 hours when necessary Continue pain control: 1 mg hydromorphone every 3 hours when necessary Continue hydralazine 25 mg twice a day, lisinopril 40 mg daily Continue gabapentin 300 mg 3 times a day Continue levothyroxine 100 g Give 40mEq PO once today Patient is full code Objective - Vital Signs Vital signs: Vital Signs Temp 98.9 F 12/11/22 01:25 Pulse 82 12/11/22 01:25 Resp 18 12/11/22 08:08 BP 116/71 12/11/22 01:25 Pulse Ox 91 L 12/11/22 01:25 FiO2 Intake & Output 12/10/22 12/11/22 12/11/22 18:59 06:59 18:59 Other: Voiding Method Toilet Toilet Urinal # Voids 1 - Labs CBC & Chem 7: 12/11/22 07:45 12/11/22 07:45 Labs: Abnormal Lab Results - Last 24 Hours (Table) 12/10/22 12/10/22 12/11/22 Range/Units 11:16 16:53 07:45 RBC 3.45 L (4.30-5.90) m/uL Hgb 10.0 L (13.0-17.5) gm/dL Hct 29.9 L (39.0-53.0) % Sodium (137-145) mmol/L Potassium (3.5-5.1) mmol/L BUN (9-20) mg/dL Creatinine (0.66-1.25) mg/dL Glucose (74-99) mg/dL POC Glucose (mg/dL) 118 H 112 H (70-110) mg/dL Calcium (8.4-10.2) mg/dL 12/11/22 Range/Units 07:45 RBC (4.30-5.90) m/uL Hgb (13.0-17.5) gm/dL Hct (39.0-53.0) % Sodium 135 L (137-145) mmol/L Potassium 3.2 L (3.5-5.1) mmol/L BUN <2 L (9-20) mg/dL Creatinine 0.64 L (0.66-1.25) mg/dL Glucose 144 H (74-99) mg/dL POC Glucose (mg/dL) (70-110) mg/dL Calcium 7.7 L (8.4-10.2) mg/dL
--- NOTE | 2022-12-11 10:33 | P.PN ---
Subjective Progress Note Date: 12/09/22 Principal diagnosis: Perforated diverticulitis and intra-abdominal abscess Patient is a 57 year male with a recent admission to the hospital with perforated diverticulitis and abscess status post laparoscopic drainage culture were negative patient received 2 weeks of IV antibiotic in the hospital subsequent discharged on oral antibiotic and presented back to the hospital with worsening abdominal pain, patient did have CT of abdominal pelvis which did shows trace peritoneal and abscess. On today's evaluation that is 12/09/2022, the patient denies having any fever or any chills, patient is breathing comfortably regarding some abdominal pain the control of the pain medication no nausea vomiting and no diarrhea no blood work was done today Objective - Vital Signs Vital signs: Vital Signs Temp 98.7 F 12/09/22 07:16 Pulse 88 12/09/22 07:16 Resp 21 12/09/22 07:16 BP 118/75 12/09/22 07:16 Pulse Ox 94 L 12/09/22 07:16 FiO2 Intake & Output 12/08/22 12/09/22 12/09/22 18:59 06:59 18:59 Intake Total 236 Balance 236 Intake: Oral 236 Other: Voiding Method Toilet Toilet Toilet Urinal Urinal Urinal # Voids 2 2 - Exam GENERAL DESCRIPTION: Middle-age male lying in bed in no distress RESPIRATORY SYSTEM: Unlabored breathing , clear to auscultation anteriorly HEART: S1 S2 regular rate and rhythm , ABDOMEN: Soft , mild distention and tenderness EXTREMITIES: No edema feet - Labs CBC & Chem 7: 12/11/22 07:45 12/11/22 07:45 Labs: Abnormal Lab Results - Last 24 Hours (Table) 12/08/22 12/08/22 Range/Units 16:08 20:35 POC Glucose (mg/dL) 117 H 113 H (70-110) mg/dL Assessment and Plan (1) Diverticulitis of intestine, part unspecified, with perforation and abscess without bleeding Current Visit: No Status: Acute Code(s): K57.80 - DVTRCLI OF INTEST, PART UNSP, W PERF AND ABSCESS W/O BLEED SNOMED Code(s): 169297312 (2) Intra-abdominal abscess Current Visit: No Status: Acute Code(s): K65.1 - PERITONEAL ABSCESS SNOMED Code(s): 68792123 Plan: 1patient with intra-abdominal abscess from perforated diverticulitis in this patient with a previous laparoscopic drainage of the abscess and cultures were negative now presented back to the hospital with worsening abdominal pain and evidence of perforation diverticulitis with intra-abdominal abscess slightly decreased in size, with a previous laparoscopic drainage culture did not grow any bacteria 2- patient is afebrile and the patient white count is normal 3- the patient is currently being treated medically with nonavailability of IR, patient continue with Zosyn 3.375 g every 8 hours along with bowel rest , Plan is for repeat CT on Monday and evaluation by IR Dictation was produced using [employer] dictation software. please excuse any grammatical, word or spelling errors. Time with Patient: Less than 30
--- NOTE | 2022-12-11 11:30 | P.PN ---
Subjective Progress Note Date: 12/11/22 Principal diagnosis: Diverticulitis Patient doing about the same today. Mild bloating. No nausea or vomiting. Mild discomfort. White blood cell count normal. Objective - Vital Signs Vital signs: Vital Signs Temp 98.1 F 12/11/22 08:00 Pulse 83 12/11/22 08:00 Resp 18 12/11/22 08:08 BP 121/73 12/11/22 08:00 Pulse Ox 91 L 12/11/22 08:00 FiO2 Intake & Output 12/10/22 12/11/22 12/11/22 18:59 06:59 18:59 Other: Voiding Method Toilet Toilet Urinal # Voids 1 1 # Bowel Movements 1 - Exam Abdomen: Soft, mild left lower quadrant tenderness, no rebound or guarding - Labs CBC & Chem 7: 12/11/22 07:45 12/11/22 07:45 Labs: Abnormal Lab Results - Last 24 Hours (Table) 12/10/22 12/11/22 12/11/22 Range/Units 16:53 07:45 07:45 RBC 3.45 L (4.30-5.90) m/uL Hgb 10.0 L (13.0-17.5) gm/dL Hct 29.9 L (39.0-53.0) % Sodium 135 L (137-145) mmol/L Potassium 3.2 L (3.5-5.1) mmol/L BUN <2 L (9-20) mg/dL Creatinine 0.64 L (0.66-1.25) mg/dL Glucose 144 H (74-99) mg/dL POC Glucose (mg/dL) 112 H (70-110) mg/dL Calcium 7.7 L (8.4-10.2) mg/dL Assessment and Plan (1) Diverticulitis Narrative/Plan: Patient without leukocytosis. Continue antibiotics. Repeat CAT scan tomorrow. Current Visit: Yes Status: Acute Code(s): K57.92 - DVTRCLI OF INTEST, PART UNSP, W/O PERF OR ABSCESS W/O BLEED SNOMED Code(s): 321267967
[2022-12-11 11:52] LABS: Glucose,Whole Blood 133 mg/dL (70-110)
--- NOTE | 2022-12-11 16:48 | P.PN ---
Subjective Progress Note Date: 12/11/22 Principal diagnosis: Perforated diverticulitis and intra-abdominal abscess Patient is a 57 year male with a recent admission to the hospital with perforated diverticulitis and abscess status post laparoscopic drainage culture were negative patient received 2 weeks of IV antibiotic in the hospital subsequent discharged on oral antibiotic and presented back to the hospital with worsening abdominal pain, patient did have CT of abdominal pelvis which did shows trace peritoneal and abscess. On today's evaluation that is 12/11/2022, the patient is afebrile, patient is br eathing comfortably on room air, the patient abdominal pain is controlled with pain medication no nausea vomiting and no diarrhea Patient did have hemoglobin of 10.0, white count is 5.5, creatinine 0.64 Objective - Vital Signs Vital signs: Vital Signs Temp 98.2 F 12/11/22 14:55 Pulse 78 12/11/22 14:55 Resp 18 12/11/22 14:55 BP 117/75 12/11/22 14:55 Pulse Ox 93 L 12/11/22 14:55 FiO2 Intake & Output 12/10/22 12/11/22 12/11/22 18:59 06:59 18:59 Other: Voiding Method Toilet Toilet Urinal # Voids 1 1 # Bowel Movements 1 - Exam GENERAL DESCRIPTION: Middle-age male lying in bed in no distress RESPIRATORY SYSTEM: Unlabored breathing , clear to auscultation anteriorly HEART: S1 S2 regular rate and rhythm , ABDOMEN: Soft , mild distention and tenderness EXTREMITIES: No edema feet - Labs CBC & Chem 7: 12/11/22 07:45 12/11/22 07:45 Labs: Abnormal Lab Results - Last 24 Hours (Table) 12/10/22 12/11/22 12/11/22 Range/Units 16:53 07:45 07:45 RBC 3.45 L (4.30-5.90) m/uL Hgb 10.0 L (13.0-17.5) gm/dL Hct 29.9 L (39.0-53.0) % Sodium 135 L (137-145) mmol/L Potassium 3.2 L (3.5-5.1) mmol/L BUN <2 L (9-20) mg/dL Creatinine 0.64 L (0.66-1.25) mg/dL Glucose 144 H (74-99) mg/dL POC Glucose (mg/dL) 112 H (70-110) mg/dL Calcium 7.7 L (8.4-10.2) mg/dL 12/11/22 Range/Units 11:51 RBC (4.30-5.90) m/uL Hgb (13.0-17.5) gm/dL Hct (39.0-53.0) % Sodium (137-145) mmol/L Potassium (3.5-5.1) mmol/L BUN (9-20) mg/dL Creatinine (0.66-1.25) mg/dL Glucose (74-99) mg/dL POC Glucose (mg/dL) 133 H (70-110) mg/dL Calcium (8.4-10.2) mg/dL Assessment and Plan (1) Diverticulitis of intestine, part unspecified, with perforation and abscess without bleeding Current Visit: No Status: Acute Code(s): K57.80 - DVTRCLI OF INTEST, PART UNSP, W PERF AND ABSCESS W/O BLEED SNOMED Code(s): 275188097 (2) Intra-abdominal abscess Current Visit: No Status: Acute Code(s): K65.1 - PERITONEAL ABSCESS SNOMED Code(s): 78996262 Plan: 1patient with intra-abdominal abscess from perforated diverticulitis in this patient with a previous laparoscopic drainage of the abscess and cultures were negative now presented back to the hospital with worsening abdominal pain and evidence of perforation diverticulitis with intra-abdominal abscess slightly decreased in size, with a previous laparoscopic drainage culture did not grow any bacteria 2- patient is afebrile and the patient white count is normal 3- the patient is currently being treated medically with nonavailability of IR, 4- patient to continue Zosyn 3.375 g every 8 hours along with bowel rest , await CT in a.m. and evaluation by IR and further recomendation on the basis of that CT and IR eval, questions concerned were answered Dictation was produced using [email or web address] dictation software. please excuse any gramm atical, word or spelling errors. Time with Patient: Less than 30
[2022-12-11 16:54] LABS: Glucose,Whole Blood 148 mg/dL (70-110)
[2022-12-11 20:16] LABS: Glucose,Whole Blood 111 mg/dL (70-110)
[2022-12-12] MEDS: PIPERACILLIN-TAZOBACTAM 3.375 GM in SODIUM CHLORIDE 0.9% 100 ML IVPB SCH ×3 (00:11→14:57)
[2022-12-12] MEDS: METOCLOPRAMIDE 5 MG/ML 2 ML VIAL IVP SCH ×4 (00:11→17:40)
[2022-12-12] MEDS: metroNIDAZOLE-NS PMX 500 MG in SALINE 1 100ML.BAG IVPB SCH ×5 (00:12→23:26)
[2022-12-12] MEDS: LORazepam 2 MG/ML INJ IV PRN ×4 (03:45→21:50)
[2022-12-12 05:32] LABS: Glucose,Whole Blood 142 mg/dL (70-110)
[2022-12-12] MEDS: LACTATED RINGERS 1,000 ML IV SCH ×3 (05:45→17:40)
[2022-12-12] MEDS: INSULIN ASPART (NovoLOG) 100 UNIT/ML VIAL SQ SCH ×4 (06:23→20:59)
[2022-12-12] MEDS: IOPAMIDOL CONTRAST (ORAL USE) VIAL PO PRN ×2 (07:49→08:45)
[2022-12-12] MEDS: LEVOTHYROXINE 100 MCG TAB PO SCH (07:50)
[2022-12-12] MEDS: GABAPENTIN 300 MG CAP PO SCH ×3 (08:47→21:37)
[2022-12-12] MEDS: ASPIRIN 81 MG PO SCH (08:47)
[2022-12-12] MEDS: HEPARIN SODIUM,PORCINE 5,000 UNIT/ML 1 ML VIAL SQ SCH ×2 (08:48→21:37)
[2022-12-12] MEDS: hydrALAZINE HCL 25 MG TAB PO SCH ×2 (08:48→21:37)
[2022-12-12] MEDS: lisinopriL 20 MG TAB PO SCH (08:48)
[2022-12-12] MEDS: METOPROLOL SUCCINATE (ER) 50 MG TAB.ER.24H PO SCH (08:49)
[2022-12-12] MEDS: HYDROmorphone PCA 10 MG/50 ML BAG IV SCH ×2 (09:16→23:33)
[2022-12-12] MEDS: PANTOPRAZOLE 40 MG/10 ML VIAL IV SCH (09:36)
--- NOTE | 2022-12-12 10:12 | CT ---
EXAMINATION TYPE: CT abdomen pelvis w con CT DLP: 3805.4 mGycm, Automated exposure control for dose reduction was used. DATE OF EXAM: 12/12/2022 9:35 AM COMPARISON: Multiple CT abdomen pelvis with most recent 12/02/2022 CLINICAL INDICATION:Male, 57 years old with history of Follow-up on diverticulitis with abscess; Foll ow up for diverticulitis. TECHNIQUE: Standard CT of the abdomen and pelvis following the administration of 100 cc of Isovue 3 00 IV contrast material and oral contrast. Coronal and sagittal reformats were performed. FINDINGS: LOWER CHEST: Posterior dependent subsegmental atelectasis is noted. Coronary artery calcifications. M itral annulus calcifications. ABDOMEN LIVER: Diffusely hypoattenuating parenchyma. GALLBLADDER AND BILE DUCTS: Mildly distended gallbladder. No biliary duct dilatation. PANCREAS: Unremarkable. SPLEEN: Unremarkable. ADRENAL GLANDS: Unremarkable. KIDNEYS AND URETERS: No evidence of hydronephrosis or renal calculus. The kidneys enhance symmetrical ly. Contrast is demonstrated within both collecting systems on the delayed phase. PELVIS BLADDER: Unremarkable REPRODUCTIVE: Unremarkable. ABDOMEN & PELVIS STOMACH AND BOWEL: Stomach and duodenum are unremarkable. Enteric contrast reaches the mid small rad l. The appendix is within normal limits. There is again circumferential wall thickening with divertic ganesh and fat stranding involving the sigmoid colon. No evidence of bowel obstruction. PERITONEUM: No free fluid. No pneumoperitoneum. Thick-walled gas and fluid collection with focus of r etained enteric contrast and surrounding inflammatory changes redemonstrated within the mesentery jus t superior to the sigmoid colon measuring 5.6 x 4.7 cm, previously measured 4.5 x 3.5 cm. There again appears to be a tract to the sigmoid colon. VASCULATURE: Mild atherosclerotic calcifications are present throughout the abdominal aorta and its b ranches. No evidence of aortic aneurysm. MUSCULOSKELETAL: No acute osseous abnormalities. Mild disc degeneration changes are present throughou t the thoracolumbar spine. LYMPH NODES: No gross evidence for lymphadenopathy. SOFT TISSUE/ABDOMINAL WALL: Multiple foci of fat stranding density within the anterior abdominal wall soft tissues likely related to medication injection. Mild anasarca. IMPRESSION: 1. Mildly increased size of perisigmoid abscess with increased surrounding inflammatory changes from prior examination. Continued inflammatory changes from sigmoid diverticulitis. 2. Hepatic steatosis.
[2022-12-12] MEDS ORDERED: POTASSIUM CHLORIDE ER 20 MEQ TAB.ER PO STA ×2 (11:30→11:57)
--- NOTE | 2022-12-12 11:30 | P.PN ---
Subjective Progress Note Date: 12/12/22 Pt has no new complaints today. K is low at 3.1 Gen: awake, alert HEENT: normocephalic, atraumatic, good hearing acuity, moist mucous membranes Resp: good air exchange, breathing comfortably with no accessory muscle use CVS: good distal perfusion x 4, GI: soft, NTTP, ND : no SPT, no CVAT, young catheter not present MSK: no pitting edema, no clubbing Neuro: non-focal, moving all extremities Psych: cooperative, euthymic mood Hospital course: Patient is a 57-year-old male with history of hypertension, dyslipidemia, CAD status post stent, diabetes, hypothyroidism, asthma presenting with worsening lower abdomen pain. Patient was recently admitted for perforated acute sigmoid diverticulitis with abscess, underwent robotic lysis of adhesions, abscess not drained. Patient was discharged home with antibiotics. [facility] was consulted for medical management. In the ED, temperature was 99, pulse 98, respiratory rate 18, blood pressure 127/76, saturating at 96% on room air. Initial WBC was 14.1, now 8.5. Sodium 137, potassium 4.4, creatinine 0.88, lipase 41. 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 Patient currently on IV Zosyn. Infectious disease is following the patient. Patient admitted to general surgery. Per general surgery patient may need surgery if no improvement. Assessment: Sepsis on admission secondary to perforated sigmoid diverticulitis with abscess formation Metabolic acidosis likely due to sepsis versus iatrogenic from normal saline CAD status post stent Hypertension Dyslipidemia Type 2 diabetes Hypothyroidism Asthma exacerbation Plan: K is 3.1 Continue Zosyn, Flagyl, discussed with pharmacy. Continue albuterol 2 puffs every 6 hours when necessary Continue pain control: 1 mg hydromorphone every 3 hours when necessary Continue hydralazine 25 mg twice a day, lisinopril 40 mg daily Continue gabapentin 300 mg 3 times a day Continue levothyroxine 100 g Give 40mEq PO once again today Patient is full code Objective - Vital Signs Vital signs: Vital Signs Temp 97.6 F 12/12/22 08:15 Pulse 86 12/12/22 08:15 Resp 15 12/12/22 08:15 BP 109/71 12/12/22 08:15 Pulse Ox 95 12/12/22 09:26 FiO2 Intake & Output 12/11/22 12/12/22 12/12/22 18:59 06:59 18:59 Other: Voiding Method Toilet Toilet # Voids 1 2 # Bowel Movements 1 - Labs CBC & Chem 7: 12/11/22 07:45 12/12/22 06:26 Labs: Abnormal Lab Results - Last 24 Hours (Table) 12/11/22 12/11/22 12/11/22 Range/Units 11:51 16:52 20:14 Potassium (3.5-5.1) mmol/L POC Glucose (mg/dL) 133 H 148 H 111 H (70-110) mg/dL 12/12/22 12/12/22 Range/Units 05:30 06:26 Potassium 3.1 L (3.5-5.1) mmol/L POC Glucose (mg/dL) 142 H (70-110) mg/dL
[2022-12-12 17:04] LABS: Glucose,Whole Blood 174 mg/dL (70-110)
--- NOTE | 2022-12-12 17:30 | P.PN ---
Subjective Progress Note Date: 12/12/22 CHIEF COMPLAINT: Abdominal pain, diverticulitis HISTORY OF PRESENT ILLNESS: The patient is a 57-year-old -year-old male with recurrent diverticulitis. He had opted for conservative management as he did not want surgical intervention. He was on brillinta which is now discontinued more than 5 days. Patient reports lower abdominal soreness however feeling better. He does not have complete resolution of his symptoms. ROS: No reports of nausea and vomiting. Has bowel movements. No fevers or chills. No new chest pain. No productive sputum PHYSICAL EXAM: VITAL SIGNS: Reviewed CONSTITUTIONAL: Well developed and in no acute distress. EYES: Conjuctivae without sclera icterus. Extraocular movements grossly intact. HEAD, EARS, NOSE, THROAT: Moist buccal mucosa. Head is atraumatic, normocep halic. Hears conversational speech. No nasal drainage. RESPIRATORY: Non-labored respirations and equal bilateral excursions. CARDIOVASCULAR: Palpable 2+ radial pulses. ABDOMEN: Obese, mild tenderness bilateral lower abdomen. No peritonitis. No rigidity or guarding. MUSCULOSKELETAL: No gross deformity of the lower extremities noted. No clubbing. No cyanosis. SKIN: Good skin turgor. Well perfused. NEUROLOGIC: Cranial nerves II through XII grossly intact. No focal or lateralizing signs. PSYCH: Appropriate affect. Alert and oriented to person, place and time. CLINICAL LABS: Reviewed. WBC normal 5.5 12/11/2022. Potassium low 3.1. STUDIES: Repeat CT of the abdomen and pelvis reviewed demonstrates persistent pelvic abscess from diverticulitis. This is my independent interpretation. No gross free free air ASSESSMENT: 1. Perforated diverticulitis with abscess 2. Morbid obesity due to excess calories 3. Hypokalemia PLAN: 1. Additional potassium 40 mEq by mouth 2. We'll proceed with colectomy and ostomy during this hospitalization. 3. I was personally notified by interventional radiology that abscess is too small for drain and not accessible via interventional radiology Objective - Vital Signs Vital signs: Vital Signs Temp 97.6 F 12/12/22 14:13 Pulse 75 12/12/22 14:13 Resp 15 12/12/22 14:13 BP 109/74 12/12/22 14:13 Pulse Ox 95 12/12/22 14:13 FiO2 Intake & Output 12/11/22 12/12/22 12/12/22 18:59 06:59 18:59 Weight 136.078 kg Other: Voiding Method Toilet Toilet # Voids 1 2 # Bowel Movements 1 - Labs CBC & Chem 7: 12/11/22 07:45 12/12/22 06:26 Labs: Abnormal Lab Results - Last 24 Hours (Table) 12/11/22 12/12/22 12/12/22 Range/Units 20:14 05:30 06:26 Potassium 3.1 L (3.5-5.1) mmol/L POC Glucose (mg/dL) 111 H 142 H (70-110) mg/dL 12/12/22 Range/Units 16:57 Potassium (3.5-5.1) mmol/L POC Glucose (mg/dL) 174 H (70-110) mg/dL
[2022-12-12 20:57] LABS: Glucose,Whole Blood 102 mg/dL (70-110)
[2022-12-13] MEDS: METOCLOPRAMIDE 5 MG/ML 2 ML VIAL IVP SCH ×4 (00:57→17:22)
[2022-12-13] MEDS: PIPERACILLIN-TAZOBACTAM 3.375 GM in SODIUM CHLORIDE 0.9% 100 ML IVPB SCH ×3 (00:57→17:22)
[2022-12-13 06:29] LABS: Glucose,Whole Blood 104 mg/dL (70-110)
[2022-12-13] MEDS: metroNIDAZOLE-NS PMX 500 MG in SALINE 1 100ML.BAG IVPB SCH ×2 (06:53→12:41)
[2022-12-13] MEDS: LEVOTHYROXINE 100 MCG TAB PO SCH (06:53)
[2022-12-13] MEDS: LORazepam 2 MG/ML INJ IV PRN ×3 (06:54→18:28)
[2022-12-13] MEDS: INSULIN ASPART (NovoLOG) 100 UNIT/ML VIAL SQ SCH ×4 (07:13→20:47)
[2022-12-13] MEDS: LACTATED RINGERS 1,000 ML IV SCH ×3 (09:02→22:51)
[2022-12-13] MEDS: PANTOPRAZOLE 40 MG/10 ML VIAL IV SCH (09:19)
[2022-12-13] MEDS: lisinopriL 20 MG TAB PO SCH (09:20)
[2022-12-13] MEDS: hydrALAZINE HCL 25 MG TAB PO SCH ×2 (09:20→21:12)
[2022-12-13] MEDS: HEPARIN SODIUM,PORCINE 5,000 UNIT/ML 1 ML VIAL SQ SCH ×2 (09:20→21:12)
[2022-12-13] MEDS: ASPIRIN 81 MG PO SCH (09:20)
[2022-12-13] MEDS: GABAPENTIN 300 MG CAP PO SCH ×3 (09:20→21:12)
[2022-12-13] MEDS: METOPROLOL SUCCINATE (ER) 50 MG TAB.ER.24H PO SCH (09:20)
--- NOTE | 2022-12-13 10:39 | P.PN ---
Subjective Progress Note Date: 12/13/22 Pt has no new complaints today. Gen: awake, alert HEENT: normocephalic, atraumatic, good hearing acuity, moist mucous membranes Resp: good air exchange, breathing comfortably with no accessory muscle use CVS: good distal perfusion x 4, GI: soft, NTTP, ND : no SPT, no CVAT, young catheter not present MSK: no pitting edema, no clubbing Neuro: non-focal, moving all extremities Psych: cooperative, euthymic mood Hospital course: Patient is a 57-year-old male with history of hypertension, dyslipidemia, CAD status post stent, diabetes, hypothyroidism, asthma presenting with worsening lower abdomen pain. Patient was recently admitted for perforated acute sigmoid diverticulitis with abscess, underwent robotic lysis of adhesions, abscess not drained. Patient was discharged home with antibiotics. [facility] was consulted for medical management. In the ED, temperature was 99, pulse 98, respiratory rate 18, blood pressure 127/76, saturating at 96% on room air. Initial WBC was 14.1, now 8.5. Sodium 137, potassium 4.4, creatinine 0.88, lipase 41. 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 Patient currently on IV Zosyn. Infectious disease is following the patient. Patient admitted to general surgery. Per general surgery patient may need surgery if no improvement. Assessment: Sepsis on admission secondary to perforated sigmoid diverticulitis with abscess formation Metabolic acidosis likely due to sepsis versus iatrogenic from normal saline CAD status post stent Hypertension Dyslipidemia Type 2 diabetes Hypothyroidism Asthma exacerbation Plan: Labs this AM are pending Colectomy and colostomy planned by surgery Continue Zosyn Continue albuterol 2 puffs every 6 hours when necessary Continue pain control: 1 mg hydromorphone every 3 hours when necessary Continue hydralazine 25 mg twice a day, lisinopril 40 mg daily Continue gabapentin 300 mg 3 times a day Continue levothyroxine 100 g Patient is full code Objective - Vital Signs Vital signs: Vital Signs Temp 98.4 F 12/13/22 07:44 Pulse 79 12/13/22 07:44 Resp 17 12/13/22 07:44 BP 119/77 12/13/22 07:44 Pulse Ox 93 L 12/13/22 07:44 FiO2 Intake & Output 12/12/22 12/13/22 12/13/22 18:59 06:59 18:59 Weight 136.078 kg Other: Voiding Method Toilet Toilet # Voids 3 # Bowel Movements 1 - Labs CBC & Chem 7: 12/11/22 07:45 12/12/22 06:26 Labs: Abnormal Lab Results - Last 24 Hours (Table) 12/12/22 Range/Units 16:57 POC Glucose (mg/dL) 174 H (70-110) mg/dL
[2022-12-13 13:35] LABS: African American GFR (CKD) >90 (>60 ml/min/1.73 sqM); Anion Gap 8 mmol/L; Blood Urea Nitrogen <2 mg/dL (9-20); Calcium 8.2 mg/dL (8.4-10.2); Carbon Dioxide 28 mmol/L (22-30); Chloride 102 mmol/L (98-107); Glucose 104 mg/dL (74-99); Non-African American GFR(CKD) >90 (>60 ml/min/1.73 sqM); Potassium 3.6 mmol/L (3.5-5.1); Sodium 138 mmol/L (137-145)
[2022-12-13 20:30] LABS: Glucose,Whole Blood 116 mg/dL (70-110)
[2022-12-13] MEDS: HYDROmorphone PCA 10 MG/50 ML BAG IV SCH (22:46)
[2022-12-14] MEDS: PIPERACILLIN-TAZOBACTAM 3.375 GM in SODIUM CHLORIDE 0.9% 100 ML IVPB SCH ×3 (00:24→17:18)
[2022-12-14] MEDS: METOCLOPRAMIDE 5 MG/ML 2 ML VIAL IVP SCH ×4 (00:25→17:55)
[2022-12-14] MEDS: LORazepam 2 MG/ML INJ IV PRN ×5 (00:25→21:57)
[2022-12-14] MEDS: LACTATED RINGERS 1,000 ML IV SCH ×3 (03:47→22:04)
[2022-12-14 06:05] LABS: Glucose,Whole Blood 109 mg/dL (70-110)
[2022-12-14] MEDS: INSULIN ASPART (NovoLOG) 100 UNIT/ML VIAL SQ SCH ×4 (06:18→20:54)
[2022-12-14] MEDS: LEVOTHYROXINE 100 MCG TAB PO SCH (06:52)
--- NOTE | 2022-12-14 08:09 | P.PN ---
Subjective Progress Note Date: 12/13/22 CHIEF COMPLAINT: Abdominal pain, diverticulitis HISTORY OF PRESENT ILLNESS: The patient is a 57-year-old -year-old male with recurrent diverticulitis. No increased abdominal pain. He has been nothing by mouth for 24 hours. ROS: No reports of nausea and vomiting. Has bowel movements. No fevers or c hills. No new chest pain. No productive sputum PHYSICAL EXAM: VITAL SIGNS: Reviewed CONSTITUTIONAL: Well developed and in no acute distress. EYES: Conjuctivae without sclera icterus. Extraocular movements grossly intact. HEAD, EARS, NOSE, THROAT: Moist buccal mucosa. Head is atraumatic, norm ocephalic. Hears conversational speech. No nasal drainage. RESPIRATORY: Non-labored respirations and equal bilateral excursions. CARDIOVASCULAR: Palpable 2+ radial pulses. ABDOMEN: Obese. Mild lower abdominal tenderness. MUSCULOSKELETAL: No gross deformity of the lower extremities noted. No c lubbing. No cyanosis. SKIN: Good skin turgor. Well perfused. NEUROLOGIC: Cranial nerves II through XII grossly intact. No focal or lateralizing signs. PSYCH: Appropriate affect. Alert and oriented to person, place and time. CLINICAL LABS: Reviewed. ASSESSMENT: 1. Perforated diverticulitis with abscess 2. Morbid obesity due to excess calories 3. Hypokalemia PLAN: 1. May have full liquid diet in the interim 2. Continue IV antibiotics 3. Surgery deferred due to limited OR time Objective - Vital Signs Vital signs: Vital Signs Temp 98.6 F 12/14/22 07:04 Pulse 87 12/14/22 07:04 Resp 19 12/14/22 07:04 BP 133/71 12/14/22 07:04 Pulse Ox 95 12/14/22 07:04 FiO2 Intake & Output 12/13/22 12/14/22 12/14/22 18:59 06:59 18:59 Intake Total 1800 Balance 1800 Intake: Intake, IV Titration 1800 Amount Lactated Ringers 1,000 ml 1500 @ 125 mls/hr IV .Q8H [facility] Rx#:[id number] Piperacillin-Tazobactam 3 200 .375 gm In Sodium Chloride 0.9% 100 ml @ 25 mls/hr IVPB Q8HR [facility] Rx# :[id number] metroNIDAZOLE-NS PMX 500 100 mg In Saline 1 100ml.bag @ 100 mls/hr IVPB Q6HR [facility] Rx#:[id number] Other: # Voids 4 4 # Bowel Movements 1 - Labs CBC & Chem 7: 12/11/22 07:45 12/13/22 12:50 Labs: Abnormal Lab Results - Last 24 Hours (Table) 12/13/22 12/13/22 Range/Units 12:50 20:28 BUN <2 L (9-20) mg/dL Creatinine 0.59 L (0.66-1.25) mg/dL Glucose 104 H (74-99) mg/dL POC Glucose (mg/dL) 116 H (70-110) mg/dL Calcium 8.2 L (8.4-10.2) mg/dL
[2022-12-14] MEDS: hydrALAZINE HCL 25 MG TAB PO SCH ×2 (09:03→21:57)
[2022-12-14] MEDS: METOPROLOL SUCCINATE (ER) 50 MG TAB.ER.24H PO SCH (09:03)
[2022-12-14] MEDS: GABAPENTIN 300 MG CAP PO SCH ×3 (09:03→21:57)
[2022-12-14] MEDS: lisinopriL 20 MG TAB PO SCH (09:03)
[2022-12-14] MEDS: ASPIRIN 81 MG PO SCH (09:03)
[2022-12-14] MEDS: HEPARIN SODIUM,PORCINE 5,000 UNIT/ML 1 ML VIAL SQ SCH ×2 (09:03→21:56)
--- NOTE | 2022-12-14 10:25 | P.PN ---
Subjective Progress Note Date: 12/14/22 Pt has c/o abd pain in the RLQ, no longer having BMs. Surgery post-poned until Monday. Gen: awake, alert HEENT: normocephalic, atraumatic, good hearing acuity, moist mucous membranes Resp: good air exchange, breathing comfortably with no accessory muscle use CVS: good distal perfusion x 4, GI: soft, NTTP, ND : no SPT, no CVAT, young catheter not present MSK: no pitting edema, no clubbing Neuro: non-focal, moving all extremities Psych: cooperative, euthymic mood Hospital course: Patient is a 57-year-old male with history of hypertension, dyslipidemia, CAD status post stent, diabetes, hypothyroidism, asthma presenting with worsening lower abdomen pain. Patient was recently admitted for perforated acute sigmoid diverticulitis with abscess, underwent robotic lysis of adhesions, abscess not drained. Patient was discharged home with antibiotics. [facility] was consulted for medical management. In the ED, temperature was 99, pulse 98, respiratory rate 18, blood pressure 127/76, saturating at 96% on room air. Initial WBC was 14.1, now 8.5. Sodium 137, potassium 4.4, creatinine 0.88, lipase 41. 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 Patient currently on IV Zosyn. Infectious disease is following the patient. Patient admitted to general surgery. Per general surgery patient may need surgery if no improvement. Assessment: Sepsis on admission secondary to perforated sigmoid diverticulitis with abscess formation Metabolic acidosis likely due to sepsis versus iatrogenic from normal saline CAD status post stent Hypertension Dyslipidemia Type 2 diabetes Hypothyroidism Asthma exacerbation Plan: Labs this AM are pending Colectomy and colostomy planned by surgery Continue Zosyn Continue albuterol 2 puffs every 6 hours when necessary Continue pain control: 1 mg hydromorphone every 3 hours when necessary Continue hydralazine 25 mg twice a day, lisinopril 40 mg daily Continue gabapentin 300 mg 3 times a day Continue levothyroxine 100 g Patient is full code Objective - Vital Signs Vital signs: Vital Signs Temp 98.6 F 12/14/22 07:04 Pulse 87 12/14/22 07:04 Resp 19 12/14/22 07:04 BP 133/71 12/14/22 07:04 Pulse Ox 95 12/14/22 07:04 FiO2 Intake & Output 12/13/22 12/14/22 12/14/22 18:59 06:59 18:59 Intake Total 1800 Balance 1800 Intake: Intake, IV Titration 1800 Amount Lactated Ringers 1,000 ml 1500 @ 125 mls/hr IV .Q8H [facility] Rx#:[id number] Piperacillin-Tazobactam 3 200 .375 gm In Sodium Chloride 0.9% 100 ml @ 25 mls/hr IVPB Q8HR [facility] Rx# :[id number] metroNIDAZOLE-NS PMX 500 100 mg In Saline 1 100ml.bag @ 100 mls/hr IVPB Q6HR [facility] Rx#:[id number] Other: # Voids 4 4 # Bowel Movements 1 - Labs CBC & Chem 7: 12/11/22 07:45 12/13/22 12:50 Labs: Abnormal Lab Results - Last 24 Hours (Table) 12/13/22 12/13/22 Range/Units 12:50 20:28 BUN <2 L (9-20) mg/dL Creatinine 0.59 L (0.66-1.25) mg/dL Glucose 104 H (74-99) mg/dL POC Glucose (mg/dL) 116 H (70-110) mg/dL Calcium 8.2 L (8.4-10.2) mg/dL
--- NOTE | 2022-12-14 10:34 | P.PN ---
Subjective Progress Note Date: 12/13/22 Principal diagnosis: Perforated diverticulitis and intra-abdominal abscess Patient is a 57 year male with a recent admission to the hospital with perforated diverticulitis and abscess status post laparoscopic drainage culture were negative patient received 2 weeks of IV antibiotic in the hospital subsequent discharged on oral antibiotic and presented back to the hospital with worsening abdominal pain, patient did have CT of abdominal pelvis which did shows trace peritoneal and abscess. On today's evaluation that is 12/13/2022, the patient denies any fever or any ch ills, patient is breathing comfortably on 2 L nasal cannula oxygen, the patient denies having any chest pain or cough, the patient abdominal pain is controlled with pain medication, the patient did have some nausea but no vomiting and no diarrhea Patient did have hemoglobin of 10.0, white count is 5.5 as of 12/11/2022 , creatinine 0.59 done this morning Objective - Vital Signs Vital signs: Vital Signs Temp 98.4 F 12/13/22 07:44 Pulse 79 12/13/22 07:44 Resp 17 12/13/22 07:44 BP 119/77 12/13/22 07:44 Pulse Ox 93 L 12/13/22 07:44 FiO2 Intake & Output 12/12/22 12/13/22 12/13/22 18:59 06:59 18:59 Weight 136.078 kg Other: Voiding Method Toilet Toilet # Voids 3 # Bowel Movements 1 - Exam GENERAL DESCRIPTION: Middle-age male lying in bed in no distress RESPIRATORY SYSTEM: Unlabored breathing , clear to auscultation anteriorly HEART: S1 S2 regular rate and rhythm , ABDOMEN: Soft , mild distention and tenderness EXTREMITIES: No edema feet - Labs CBC & Chem 7: 12/11/22 07:45 12/13/22 12:50 Labs: Abnormal Lab Results - Last 24 Hours (Table) 12/12/22 Range/Units 16:57 POC Glucose (mg/dL) 174 H (70-110) mg/dL Assessment and Plan (1) Diverticulitis of intestine, part unspecified, with perforation and abscess without bleeding Current Visit: No Status: Acute Code(s): K57.80 - DVTRCLI OF INTEST, PART UNSP, W PERF AND ABSCESS W/O BLEED SNOMED Code(s): 516731322 (2) Intra-abdominal abscess Current Visit: No Status: Acute Code(s): K65.1 - PERITONEAL ABSCESS SNOMED Code(s): 59372294 Plan: 1patient with intra-abdominal abscess from perforated diverticulitis in this patient with a previous laparoscopic drainage of the abscess and cultures were negative now presented back to the hospital with worsening abdominal pain and evidence of perforation diverticulitis with intra-abdominal abscess slightly decreased in size, with a previous laparoscopic drainage culture did not grow any bacteria 2- patient is afebrile and the patient white count is normal 3- the patient did have a repeat a CT abdominal pelvis that was reviewed with the IR and cannot be drained CT-guided, plan is for surgical drainage during this admission per surgical note 4- patient to continue Zosyn 3.375 g every 8 hours along with bowel rest and monitor clinical course closely Dictation was produced using [employer] dictation software. please excuse any grammatical, word or spelling errors.
[2022-12-14] MEDS: HYDROmorphone PCA 10 MG/50 ML BAG IV SCH (11:08)
[2022-12-14] MEDS: PANTOPRAZOLE 40 MG/10 ML VIAL IV SCH (11:11)
[2022-12-14 11:16] LABS: Basophils % (A) 0 %; Eosinophils # (A) 0.5 k/uL (0-0.7); Eosinophils % (A) 6 %; HCT 34.2 % (39.0-53.0); HGB 11.4 gm/dL (13.0-17.5); Lymphocytes # (A) 1.5 k/uL (1.0-4.8); Lymphocytes % (A) 19 %; MCHC 33.4 g/dL (31.0-37.0); MCV 86.8 fL (80.0-100.0); Mean Platelet Volume 7.2; Monocytes # (A) 0.5 k/uL (0-1.0); Monocytes % (A) 6 %; Neutrophils # (A) 5.5 k/uL (1.3-7.7); Neutrophils % (A) 67 %; Platelet Count 351 k/uL (150-450); RBC 3.94 m/uL (4.30-5.90); RDW 15.7 % (11.5-15.5); WBC 8.1 k/uL (3.8-10.6)
[2022-12-14 11:30] LABS: African American GFR (CKD) >90 (>60 ml/min/1.73 sqM); Anion Gap 6 mmol/L; Blood Urea Nitrogen <2 mg/dL (9-20); Calcium 8.4 mg/dL (8.4-10.2); Carbon Dioxide 27 mmol/L (22-30); Chloride 101 mmol/L (98-107); Glucose 135 mg/dL (74-99); Magnesium 1.7 mg/dL (1.6-2.3); Non-African American GFR(CKD) >90 (>60 ml/min/1.73 sqM); Potassium 3.9 mmol/L (3.5-5.1); Sodium 134 mmol/L (137-145)
[2022-12-14 11:41] LABS: Glucose,Whole Blood 134 mg/dL (70-110)
[2022-12-14 12:25] LABS: Phosphorus 3.4 mg/dL (2.5-4.5)
[2022-12-14 16:36] LABS: Glucose,Whole Blood 115 mg/dL (70-110)
[2022-12-14 20:54] LABS: Glucose,Whole Blood 132 mg/dL (70-110)
--- NOTE | 2022-12-14 21:57 | P.PN ---
Subjective Progress Note Date: 12/14/22 CHIEF COMPLAINT: Abdominal pain, diverticulitis HISTORY OF PRESENT ILLNESS: The patient is a 57-year-old -year-old male with recurrent diverticulitis. Reports passage of flatus. Decreased bowel movemen ts. Pain is tolerable high-level of lower abdomen. ROS: No reports of nausea and vomiting. No fevers or chills. No new chest pain. No productive sputum PHYSICAL EXAM: VITAL SIGNS: Reviewed CONSTITUTIONAL: Well developed and in no acute distress. EYES: Conjuctivae without sclera icterus. Extraocular movements grossly intact. HEAD, EARS, NOSE, THROAT: Moist buccal mucosa. Head is atraumatic, normocephalic. Hears conversational speech. No nasal drainage. RESPIRATORY: Non-labored respirations and equal bilateral excursions. CARDIOVASCULAR: Palpable 2+ radial pulses. ABDOMEN: Obese. lower abdominal tenderness. MUSCULOSKELETAL: No gross deformity of the lower extremities noted. No clubbing. No cyanosis. SKIN: Good skin turgor. Well perfused. NEUROLOGIC: Cranial nerves II through XII grossly intact. No focal or lateralizing signs. PSYCH: Appropriate affect. Alert and oriented to person, place and time. CLINICAL LABS: Reviewed. WBC normal at 8.5. Hemoglobin 11.4, anemia ASSESSMENT: 1. Perforated diverticulitis with abscess 2. Morbid obesity due to excess calories 3. Hypokalemia PLAN: 1. Recommend PICC line for antibiotics as well as TPN 2. Surgical resection described for diverticulitis Objective - Vital Signs Vital signs: Vital Signs Temp 98.9 F 12/14/22 14:02 Pulse 85 12/14/22 14:02 Resp 19 12/14/22 14:02 BP 136/70 12/14/22 14:02 Pulse Ox 95 12/14/22 14:02 FiO2 Intake & Output 12/13/22 12/14/22 12/14/22 18:59 06:59 18:59 Intake Total 1800 Balance 1800 Weight 136.078 kg Intake: Intake, IV Titration 1800 Amount Lactated Ringers 1,000 ml 1500 @ 125 mls/hr IV .Q8H [facility] Rx#:[id number] Piperacillin-Tazobactam 3 200 .375 gm In Sodium Chloride 0.9% 100 ml @ 25 mls/hr IVPB Q8HR [facility] Rx# :[id number] metroNIDAZOLE-NS PMX 500 100 mg In Saline 1 100ml.bag @ 100 mls/hr IVPB Q6HR [facility] Rx#:[id number] Other: # Voids 4 4 # Bowel Movements 1 - Labs CBC & Chem 7: 12/14/22 10:50 12/14/22 10:50 Labs: Abnormal Lab Results - Last 24 Hours (Table) 12/13/22 12/14/22 12/14/22 Range/Units 20:28 10:50 10:50 RBC 3.94 L (4.30-5.90) m/uL Hgb 11.4 L (13.0-17.5) gm/dL Hct 34.2 L (39.0-53.0) % RDW 15.7 H (11.5-15.5) % Sodium 134 L (137-145) mmol/L BUN <2 L (9-20) mg/dL Glucose 135 H (74-99) mg/dL POC Glucose (mg/dL) 116 H (70-110) mg/dL 12/14/22 12/14/22 Range/Units 11:39 16:34 RBC (4.30-5.90) m/uL Hgb (13.0-17.5) gm/dL Hct (39.0-53.0) % RDW (11.5-15.5) % Sodium (137-145) mmol/L BUN (9-20) mg/dL Glucose (74-99) mg/dL POC Glucose (mg/dL) 134 H 115 H (70-110) mg/dL
[2022-12-15] MEDS: PIPERACILLIN-TAZOBACTAM 3.375 GM in SODIUM CHLORIDE 0.9% 100 ML IVPB SCH ×3 (00:46→17:09)
[2022-12-15] MEDS: METOCLOPRAMIDE 5 MG/ML 2 ML VIAL IVP SCH ×4 (00:46→18:37)
[2022-12-15] MEDS: HYDROmorphone PCA 10 MG/50 ML BAG IV SCH ×2 (01:58→17:36)
[2022-12-15] MEDS: LORazepam 2 MG/ML INJ IV PRN ×6 (02:07→23:27)
[2022-12-15] MEDS: LACTATED RINGERS 1,000 ML IV SCH ×3 (05:05→21:28)
[2022-12-15] MEDS: HEPARIN SODIUM,PORCINE 5,000 UNIT/ML 1 ML VIAL SQ SCH ×2 (05:38→21:31)
[2022-12-15 06:07] LABS: Glucose,Whole Blood 119 mg/dL (70-110)
[2022-12-15] MEDS: INSULIN ASPART (NovoLOG) 100 UNIT/ML VIAL SQ SCH ×4 (06:13→21:31)
[2022-12-15] MEDS: LEVOTHYROXINE 100 MCG TAB PO SCH (06:21)
[2022-12-15] MEDS: METOPROLOL SUCCINATE (ER) 50 MG TAB.ER.24H PO SCH (08:14)
[2022-12-15] MEDS: ASPIRIN 81 MG PO SCH (08:14)
[2022-12-15] MEDS: hydrALAZINE HCL 25 MG TAB PO SCH ×2 (08:14→21:31)
[2022-12-15] MEDS: PANTOPRAZOLE 40 MG/10 ML VIAL IV SCH (08:14)
[2022-12-15] MEDS: lisinopriL 20 MG TAB PO SCH (08:14)
[2022-12-15] MEDS: GABAPENTIN 300 MG CAP PO SCH ×3 (08:14→21:31)
--- NOTE | 2022-12-15 09:48 | IR ---
PICC LINE PLACEMENT: HISTORY: Infection requiring long-term antibiotic therapy PROCEDURE: Ultrasound and fluoroscopic guidance of PICC line placement. COMPLICATIONS: None ANESTHESIA: 1. 1% Lidocaine locally. FINDINGS/TECHNIQUE: The procedure was explained to the patient. The risks, complications, benefits and alternatives were discussed and any questions were answered. Informed consent was obtained. The patient was placed supine on the fluoroscopic table and prepped and draped in the usual sterile fash ion. Utilizing a 21 gauge needle and sonographic and fluoroscopic guidance, access in the left ceph alic vein was achieved and there is placement of a 0.018 guidewire. The vein is patent. A 4-F sheat h was placed over the guidewire. The guidewire and dilator were removed and a 4-F. PICC line was thong marianela through the sheath with the tip at the level of the SVC. The sheath was removed, the catheter wa s flushed and sutured into position. The patient was stable throughout the procedure and remained st able upon discharge from the Department of Radiology. The vein puncture was patent under ultrasound. A devries scale image was obtained to document patency of the vein punctured. All elements of the maximal barrier technique were utilized. FLUOROSCOPY TIME: DAP 0.655Gy cm2 IMPRESSION: Successful PICC line placement under ultrasound and fluoroscopic guidance.
[2022-12-15 11:47] LABS: Glucose,Whole Blood 112 mg/dL (70-110)
[2022-12-15 11:49] LABS: INR 1.04 sec (0.93-1.11); Prothrombin Time 11.7 sec (9.9-11.9)
--- NOTE | 2022-12-15 13:51 | P.PN ---
Subjective Progress Note Date: 12/15/22 Patient is a 57-year-old male with history of hypertension, dyslipidemia, CAD status post stent, diabetes, hypothyroidism, asthma presenting with worsening lower abdomen pain. Patient was recently admitted for perforated acute sigmoid diverticulitis with abscess, underwent robotic lysis of adhesions, abscess not drained. Patient was discharged home with antibiotics. [facility] was consulted for medical management. In the ED, temperature was 99, pulse 98, respiratory rate 18, blood pressure 127/76, saturating at 96% on room air. Initial WBC was 14.1, now 8.5. Sodium 137, potassium 4.4, creatinine 0.88, lipase 41. 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 12/15 Patient was seen and examined. No acute events overnight. Pain well controlled on Dialudid TAPE SEWING MACHINE OPERATOR pump. Plans for surgery on Monday. INR is 1.04. [id number] glucose ranging from 112-134 over the past 24 hours. General: non toxic, no distress, appears at stated age Derm: warm, dry Head: atraumatic, normocephalic, symmetric Eyes: EOMI, no lid lag, anicteric sclera Cardiovascular: S1S2 reg, no murmur Lungs: CTA bilateral, no rhonchi, no rales , no accessory muscle use Abdominal: soft, tenderness to palpation in R and LLQ with mild rebound, no guarding, no appreciable organomegaly Ext: no gross muscle atrophy, no edema, no contractures Neuro: no focal neuro deficits Psych: Alert, oriented, appropriate affect Sepsis secondary to perforated sigmoid diverticulitis with abscess formation CAD status post stent Hypertension Dyslipidemia Type 2 diabetes Hypothyroidism Asthma exacerbation Based on my assessment of this patient, this patient meets a high complexity level of care. Patient has an acute diagnosis of sepsis secondary to perforated sigmoid diverticulitis with abscess formation that poses a threat to life or bodily function. Sepsis secondary to perforated sigmoid diverticulitis with abscess formation: Continue Zosyn 3.375g IV Q8H + Flagyl 500 mg IV Q6H. NPO. Pain control with TAPE SEWING MACHINE OPERATOR pain pump. Continue LR at 125 cc/hr. Blood culture negative. Telemetry monitoring. Surgery on board. CAD status post stent: Continue ASA 81 mg PO QD. Hold Brilinta for possible surgical intervention. Continue Metoprolol 50 mg PO QD. Continue Crestor when OK with surgery. Hypertension: BP 104/65. Continue Metoprolol as above. Continue Hydralazine 25 mg PO BID and Lisinopril 40 mg PO QD. Type 2 diabetes: Insulin sliding scale. Accuchecks ACHS. Hypoglycemic precautio ns. Hypothyroidism: Continue Synthroid 100 mcg PO QD. Asthma : Albuterol inhaler PRN for SOB/wheezing. I have reviewed the following wireless consultant notes: I have reviewed the results of the following tests: INR. I have ordered the following tests: CBC, BMP. I have discussed the care of this patient with the following independent historian: I have independently interpreted the following test below: I have discussed the management of this patient with the following physician: This patient has a high risk of morbidity due to the following reasons: Patient is on a Dilaudid TAPE SEWING MACHINE OPERATOR pump for pain control. Objective - Vital Signs Vital signs: Vital Signs Temp 98.5 F 12/15/22 06:57 Pulse 81 12/15/22 06:57 Resp 18 12/15/22 06:57 BP 104/65 12/15/22 06:57 Pulse Ox 93 L 12/15/22 06:57 FiO2 Intake & Output 12/14/22 12/15/22 12/15/22 18:59 06:59 18:59 Intake Total 1600 Balance 1600 Weight 136.078 kg Intake: Intake, IV Titration 1600 Amount Lactated Ringers 1,000 ml 1500 @ 125 mls/hr IV .Q8H [facility] Rx#:[id number] Piperacillin-Tazobactam 3 100 .375 gm In Sodium Chloride 0.9% 100 ml @ 25 mls/hr IVPB Q8HR [facility] Rx# :[id number] Other: Voiding Method Toilet # Voids 2 2 - Labs CBC & Chem 7: 12/14/22 10:50 12/14/22 10:50 Labs: Abnormal Lab Results - Last 24 Hours (Table) 12/14/22 12/14/22 12/15/22 Range/Units 16:34 20:53 06:06 POC Glucose (mg/dL) 115 H 132 H 119 H (70-110) mg/dL 12/15/22 Range/Units 11:45 POC Glucose (mg/dL) 112 H (70-110) mg/dL
--- NOTE | 2022-12-15 16:29 | P.PN ---
Subjective Progress Note Date: 12/15/22 CHIEF COMPLAINT: Abdominal pain, diverticulitis HISTORY OF PRESENT ILLNESS: The patient is a 57-year-old -year-old male with recurrent diverticulitis. He reports persistent lower abdominal pain. He's t olerating full liquid diet. PICC line obtained today. ROS: No reports of nausea and vomiting. No fevers or chills. No new chest pain. No productive sputum PHYSICAL EXAM: VITAL SIGNS: Reviewed CONSTITUTIONAL: Well developed and in no acute distress. EYES: Conjuctivae without sclera icterus. Extraocular movements grossly intact. HEAD, EARS, NOSE, THROAT: Moist buccal mucosa. Head is atraumatic, normocephalic. Hears conversational speech. No nasal drainage. RESPIRATORY: Non-labored respirations and equal bilateral excursions. CARDIOVASCULAR: Palpable 2+ radial pulses. ABDOMEN: Obese. Lower abdominal tenderness. No peritonitis. MUSCULOSKELETAL: No gross deformity of the lower extremities noted. No clubbing. No cyanosis. SKIN: Good skin turgor. Well perfused. NEUROLOGIC: Cranial nerves II through XII grossly intact. No focal or lateralizing signs. PSYCH: Appropriate affect. Alert and oriented to person, place and time. CLINICAL LABS: Reviewed. Blood sugar glucose less than 120. ASSESSMENT: 1. Perforated diverticulitis with abscess 2. Morbid obesity due to excess calories 3. Hypokalemia PLAN: 1. Nothing by mouth today 2. Open colectomy with ostomy described for persistent abdominal pain and copy to diverticulitis 3. Peritoneal cultures to be obtained during surgery for adjustment of antibiotics 4. All questions addressed. 5. Patient's want ex- to be notified at [phone] after surgery Objective - Vital Signs Vital signs: Vital Signs Temp 98.0 F 12/15/22 13:37 Pulse 81 12/15/22 13:37 Resp 18 12/15/22 13:37 BP 119/77 12/15/22 13:37 Pulse Ox 95 12/15/22 13:37 FiO2 Intake & Output 12/14/22 12/15/22 12/15/22 18:59 06:59 18:59 Intake Total 1600 Balance 1600 Weight 136.078 kg Intake: Intake, IV Titration 1600 Amount Lactated Ringers 1,000 ml 1500 @ 125 mls/hr IV .Q8H [facility] Rx#:[id number] Piperacillin-Tazobactam 3 100 .375 gm In Sodium Chloride 0.9% 100 ml @ 25 mls/hr IVPB Q8HR [facility] Rx# :[id number] Other: Voiding Method Toilet # Voids 2 2 - Labs CBC & Chem 7: 12/14/22 10:50 12/14/22 10:50 Labs: Abnormal Lab Results - Last 24 Hours (Table) 12/14/22 12/14/22 12/15/22 Range/Units 16:34 20:53 06:06 POC Glucose (mg/dL) 115 H 132 H 119 H (70-110) mg/dL 12/15/22 Range/Units 11:45 POC Glucose (mg/dL) 112 H (70-110) mg/dL
[2022-12-16] MEDS: METOCLOPRAMIDE 5 MG/ML 2 ML VIAL IVP SCH ×5 (00:24→23:57)
[2022-12-16] MEDS: PIPERACILLIN-TAZOBACTAM 3.375 GM in SODIUM CHLORIDE 0.9% 100 ML IVPB SCH ×4 (00:24→23:57)
[2022-12-16] MEDS: LORazepam 2 MG/ML INJ IV PRN ×4 (03:44→23:20)
[2022-12-16] MEDS: LACTATED RINGERS 1,000 ML IV SCH ×3 (04:44→20:29)
[2022-12-16] MEDS: LEVOTHYROXINE 100 MCG TAB PO SCH (06:39)
[2022-12-16 07:01] LABS: Glucose,Whole Blood 105 mg/dL (70-110)
[2022-12-16] MEDS: INSULIN ASPART (NovoLOG) 100 UNIT/ML VIAL SQ SCH ×4 (07:01→23:33)
--- NOTE | 2022-12-16 08:08 | P.PN ---
Subjective Progress Note Date: 12/14/22 Principal diagnosis: Perforated diverticulitis and intra-abdominal abscess Patient is a 57 year male with a recent admission to the hospital with perforated diverticulitis and abscess status post laparoscopic drainage culture were negative patient received 2 weeks of IV antibiotic in the hospital subsequent discharged on oral antibiotic and presented back to the hospital with worsening abdominal pain, patient did have CT of abdominal pelvis which did shows trace peritoneal and abscess. On today's evaluation that is 12/14/2022 the patient denies having any fever or any chills, the patient is breathing comfortably on room air the patient abdominal pain is currently controlled with pain medication denies any chest pain shortness of breath or cough. Patient did have a hemoglobin of 11.4 white count 8.1 creatinine 0.67 Objective - Vital Signs Vital signs: Vital Signs Temp 98.6 F 12/14/22 07:04 Pulse 87 12/14/22 07:04 Resp 19 12/14/22 07:04 BP 133/71 12/14/22 07:04 Pulse Ox 95 12/14/22 07:04 FiO2 Intake & Output 12/13/22 12/14/22 12/14/22 18:59 06:59 18:59 Intake Total 1800 Balance 1800 Intake: Intake, IV Titration 1800 Amount Lactated Ringers 1,000 ml 1500 @ 125 mls/hr IV .Q8H [facility] Rx#:[id number] Piperacillin-Tazobactam 3 200 .375 gm In Sodium Chloride 0.9% 100 ml @ 25 mls/hr IVPB Q8HR [facility] Rx# :[id number]-NS PMX 500 100 mg In Saline 1 100ml.bag @ 100 mls/hr IVPB Q6HR [facility] Rx#:[id number] Other: # Voids 4 4 # Bowel Movements 1 - Exam GENERAL DESCRIPTION: Middle-age male lying in bed in no distress RESPIRATORY SYSTEM: Unlabored breathing , clear to auscultation anteriorly HEART: S1 S2 regular rate and rhythm , ABDOMEN: Soft , mild distention and tenderness EXTREMITIES: No edema feet - Labs CBC & Chem 7: 12/14/22 10:50 12/14/22 10:50 Labs: Abnormal Lab Results - Last 24 Hours (Table) 12/13/22 12/13/22 Range/Units 12:50 20:28 BUN <2 L (9-20) mg/dL Creatinine 0.59 L (0.66-1.25) mg/dL Glucose 104 H (74-99) mg/dL POC Glucose (mg/dL) 116 H (70-110) mg/dL Calcium 8.2 L (8.4-10.2) mg/dL Assessment and Plan (1) Diverticulitis of intestine, part unspecified, with perforation and abscess without bleeding Current Visit: No Status: Acute Code(s): K57.80 - DVTRCLI OF INTEST, PART UNSP, W PERF AND ABSCESS W/O BLEED SNOMED Code(s): 443222367 (2) Intra-abdominal abscess Current Visit: No Status: Acute Code(s): K65.1 - PERITONEAL ABSCESS SNOMED Code(s): 12472469 Plan: 1patient with intra-abdominal abscess from perforated diverticulitis in this patient with a previous laparoscopic drainage of the abscess and cultures were negative now presented back to the hospital with worsening abdominal pain and evidence of perforation diverticulitis with intra-abdominal abscess slightly decreased in size, with a previous laparoscopic drainage culture did not grow any bacteria 2- patient is afebrile and the patient white count is normal 3- the patient did have a repeat a CT abdominal pelvis that was reviewed with the IR and cannot be drained CT-guided, plan is for surgical drainage during this admission per surgical note 4-Patient is currently being treated with Zosyn along with bowel rest and monitor clinical course closely Dictation was produced using [employer] dictation software. please excuse any grammatical, word or spelling errors. Time with Patient: Less than 30
--- NOTE | 2022-12-16 08:10 | P.PN ---
Subjective Progress Note Date: 12/15/22 Principal diagnosis: Perforated diverticulitis and intra-abdominal abscess Patient is a 57 year male with a recent admission to the hospital with perforated diverticulitis and abscess status post laparoscopic drainage culture were negative patient received 2 weeks of IV antibiotic in the hospital subsequent discharged on oral antibiotic and presented back to the hospital with worsening abdominal pain, patient did have CT of abdominal pelvis which did shows trace peritoneal and abscess. On today's evaluation that is 12/15/2022 the patient remains to be afebrile the patient is breathing comfortably on room air patient denies any worsening abdominal pain no nausea vomiting no significant bowel movement no chest pain shortness of breath or cough. Patient did have a normal white count normal of 8.1 as of yesterday no CBC was done today Objective - Vital Signs Vital signs: Vital Signs Temp 98.5 F 12/15/22 06:57 Pulse 81 12/15/22 06:57 Resp 18 12/15/22 06:57 BP 104/65 12/15/22 06:57 Pulse Ox 93 L 12/15/22 06:57 FiO2 Intake & Output 12/14/22 12/15/22 12/15/22 18:59 06:59 18:59 Intake Total 1600 Balance 1600 Weight 136.078 kg Intake: Intake, IV Titration 1600 Amount Lactated Ringers 1,000 ml 1500 @ 125 mls/hr IV .Q8H [facility] Rx#:[id number] Piperacillin-Tazobactam 3 100 .375 gm In Sodium Chloride 0.9% 100 ml @ 25 mls/hr IVPB Q8HR [facility] Rx# :[id number] Other: Voiding Method Toilet # Voids 2 2 - Exam GENERAL DESCRIPTION: Middle-age male lying in bed in no distress RESPIRATORY SYSTEM: Unlabored breathing , clear to auscultation anteriorly HEART: S1 S2 regular rate and rhythm , ABDOMEN: Soft , mild distention and tenderness EXTREMITIES: No edema feet - Labs CBC & Chem 7: 12/14/22 10:50 12/14/22 10:50 Labs: Abnormal Lab Results - Last 24 Hours (Table) 12/14/22 12/14/22 12/15/22 Range/Units 16:34 20:53 06:06 POC Glucose (mg/dL) 115 H 132 H 119 H (70-110) mg/dL 08/17/23 Range/Units 11:45 POC Glucose (mg/dL) 112 H (70-110) mg/dL Assessment and Plan (1) Diverticulitis of intestine, part unspecified, with perforation and abscess without bleeding Current Visit: No Status: Acute Code(s): K57.80 - DVTRCLI OF INTEST, PART UNSP, W PERF AND ABSCESS W/O BLEED SNOMED Code(s): 573766397 (2) Intra-abdominal abscess Current Visit: No Status: Acute Code(s): K65.1 - PERITONEAL ABSCESS SNOMED Code(s): 10970288 Plan: 1patient with intra-abdominal abscess from perforated diverticulitis in this patient with a previous laparoscopic drainage of the abscess and cultures were negative now presented back to the hospital with worsening abdominal pain and evidence of perforation diverticulitis with intra-abdominal abscess slightly decreased in size, with a previous laparoscopic drainage culture did not grow any bacteria 2- patient is afebrile and the patient white count is normal 3- the patient did have a repeat a CT abdominal pelvis that was reviewed with the IR and cannot be drained CT-guided, plan is for surgical drainage during this admission per surgical note 4-Patient to continue with the Zosyn hopefully plan for surgical drainage tomorrow and deep cultures which will be followed questions concern answered Dictation was produced using [email or web address] dictation software. please excuse any grammatical, word or spelling errors. Time with Patient: Less than 30
[2022-12-16] MEDS: HEPARIN SODIUM,PORCINE 5,000 UNIT/ML 1 ML VIAL SQ SCH ×2 (08:11→21:41)
[2022-12-16] MEDS: ASPIRIN 81 MG PO SCH (08:11)
[2022-12-16] MEDS: lisinopriL 20 MG TAB PO SCH (08:16)
[2022-12-16] MEDS: PANTOPRAZOLE 40 MG/10 ML VIAL IV SCH (08:16)
[2022-12-16] MEDS: hydrALAZINE HCL 25 MG TAB PO SCH ×2 (08:16→23:20)
[2022-12-16] MEDS: METOPROLOL SUCCINATE (ER) 50 MG TAB.ER.24H PO SCH (08:16)
[2022-12-16] MEDS: GABAPENTIN 300 MG CAP PO SCH ×3 (08:16→23:20)
--- NOTE | 2022-12-16 10:58 | CA ---
Transthoracic Echo Report Name: Tom Quinn Age: 57 Gender: M : 1965 Exam Date: 12/16/2022 08:54 Exam Location: [place] [facility] Ht (in): 72 Wt (lb): 300 Ordering Physician: Isha Zamorano MD Attending/Referring Phys: [id number] Campbell [employer] Forecast Analyst Lucien Wallace Procedure CPT: Indications: cardiomyopathy Cardiac Hx: Technical Quality: Technically difficult study Contrast 1: Lumason Total Dose (mL): 5 Contrast 2: Total Dose (mL): MEASUREMENTS (Male / Female) Normal Values 2D ECHO LV Diastolic Diameter PLAX 5.0 cm 4.2 - 5.9 / 3.9 - 5.3 cm LV Systolic Diameter PLAX 3.4 cm IVS Diastolic Thickness 1.2 cm 0.6 - 1.0 / 0.6 - 0.9 cm LVPW Diastolic Thickness 1.0 cm 0.6 - 1.0 / 0.6 - 0.9 cm LV Relative Wall Thickness 0.4 RV Internal Dim ED PLAX 3.0 cm LVOT Diameter 2.3 cm Aortic Root Diameter 3.5 cm LA Systolic Diameter LX 3.3 cm 3.0 - 4.0 / 2.7 - 3.8 cm LV Diastolic Volume MOD BP 75.6 cm??? 67 - 155 / 56 - 104 cm??? LV Systolic Volume MOD BP 43.8 cm??? 22 - 58 / 19 - 49 cm??? LV Ejection Fraction MOD BP 42.2 % >= 55 % LV Cardiac Index MOD BP 997.0 cm???/min???m??? LV Diastolic Volume MOD 4C 85.1 cm??? LV Systolic Volume MOD 4C 43.6 cm??? LV Ejection Fraction MOD 4C 48.8 % LV Cardiac Index MOD 4C 1298.3 cm???/min???m??? LV Diastolic Length 4C 7.8 cm LV Systolic Length 4C 7.4 cm LV Diastolic Volume MOD 2C 60.1 cm??? LV Systolic Volume MOD 2C 42.7 cm??? LV Ejection Fraction MOD 2C 28.9 % LV Cardiac Index MOD 2C 542.9 cm???/min???m??? LV Diastolic Length 2C 6.9 cm LV Systolic Length 2C 7.1 cm LA Volume 46.8 cm??? 18 - 58 / 22 - 52 cm??? Ascending Aorta Diameter 3.5 cm DOPPLER AV Peak Velocity 123.5 cm/s AV Peak Gradient 6.1 mmHg LVOT Peak Velocity 103.1 cm/s LVOT Peak Gradient 4.2 mmHg AV Area Cont Eq pk 3.5 cm??? MV Peak Velocity 88.1 cm/s MV Peak Gradient 3.1 mmHg MV Mean Velocity 54.9 cm/s MV Mean Gradient 1.4 mmHg MV Velocity Time Integral 30.4 cm Mitral E Point Velocity 95.1 cm/s Mitral A Point Velocity 85.0 cm/s Mitral E to A Ratio 1.1 MV Deceleration Time 279.3 ms MV E' Velocity 11.5 cm/s Mitral E to MV E' Ratio 8.3 TR Peak Velocity 206.2 cm/s TR Peak Gradient 17.0 mmHg Right Ventricular Systolic Press 23.5 mmHg FINDINGS Left Ventricle Normal LV size and wall thickness. Left ventricular ejection fraction is estimated at50-55 %. Right Ventricle Normal right ventricular size. RSVP= 32mmhg Right Atrium Normal right atrial size. Left Atrium Normal left atrial size. Mitral Valve Structurally normal mitral valve. No mitral regurgitation. Aortic Valve Trileaflet aortic valve. No aortic valve stenosis or regurgitation. Tricuspid Valve Structurally normal tricuspid valve. Pulmonic Valve Pulmonic valve not well visualized. No pulmonic regurgitation. Pericardium Normal pericardium. Aorta Normal size aortic root and proximal ascending aorta. CONCLUSIONS Normal LV function Previewed by: Dr. Karan Gant MD (Electronically Signed) Final Date: 16 December 2022 10:57
[2022-12-16 11:10] LABS: Basophils # (A) 0.06 X 10*3/uL (0.00-0.10); Eosinophils # (A) 0.31 X 10*3/uL (0.04-0.35); Eosinophils % (A) 5.3 %; HCT 29.8 % (39.6-50.0); HGB 9.5 d/dL (13.0-17.0); Lymphocytes # (A) 1.71 X 10*3/uL (0.90-5.00); Lymphocytes % (A) 29.3 %; MCH 27.7 pg (27.0-32.0); MCHC 31.9 d/dL (32.0-37.0); MCV 86.9 FL (80.0-97.0); Mean Platelet Volume 9.2 FL (9.5-12.2); Monocytes # (A) 0.82 X 10*3/uL (0.20-1.00); Monocytes % (A) 14.1 %; NRBC Per 100 WBC 0 X 10*3/uL (0.00-0.01); Neutrophils # (A) 2.91 X 10*3/uL (1.80-7.70); Platelet Count 335 X 10*3/uL (140-440); RBC 3.43 X 10*6/uL (4.40-5.60); RDW 15.8 % (11.5-14.5); WBC 5.83 X 10*3/uL (4.50-10.00)
[2022-12-16 12:46] LABS: Glucose,Whole Blood 106 mg/dL (70-110)
[2022-12-16 13:17] LABS: BUN/Creat Ratio <4.38 Ratio (12.00-20.00); Blood Urea Nitrogen <3.5 mg/dL (9.0-27.0); Glucose 103 mg/dL (70-110)
[2022-12-16 13:18] LABS: Calcium 8.6 mg/dL (8.7-10.3); Carbon Dioxide 26.7 mmol/L (21.6-31.8); Chloride 102 mmol/L (96-109); Potassium 4.1 mmol/L (3.5-5.5); Sodium 139 mmol/L (135-145)
--- NOTE | 2022-12-16 13:56 | P.PN ---
Subjective Progress Note Date: 12/16/22 Patient is a 57-year-old male with history of hypertension, dyslipidemia, CAD status post stent, diabetes, hypothyroidism, asthma presenting with worsening lower abdomen pain. Patient was recently admitted for perforated acute sigmoid diverticulitis with abscess, underwent robotic lysis of adhesions, abscess not drained. Patient was discharged home with antibiotics. [facility] was consulted for medical management. In the ED, temperature was 99, pulse 98, respiratory rate 18, blood pressure 127/76, saturating at 96% on room air. Initial WBC was 14.1, now 8.5. Sodium 137, potassium 4.4, creatinine 0.88, lipase 41. 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 12/15 Patient was seen and examined. No acute events overnight. Pain well controlled on Dialudid CONTROL ROOM HELPER pump. Plans for surgery on Monday. INR is 1.04. [id number] glucose ranging from 112-134 over the past 24 hours. 12/16 Patient was seen and examined. Plans for open colectomy with ostomy with Dr. Zamorano today. He continues to report abdominal pain controlled with Dilaudid CONTROL ROOM HELPER pump. Had a bowel movement this morning. CBC shows hemoglobin 9.5. BMP shows < 3.5 and Ca of 8.6. Echocardiogram was done which shows EF 50-55%. General: non toxic, no distress, appears at stated age Derm: warm, dry Head: atraumatic, normocephalic, symmetric Eyes: EOMI, no lid lag, anicteric sclera Cardiovascular: S1S2 reg, no murmur Lungs: CTA bilateral, no rhonchi, no rales , no accessory muscle use Abdominal: soft, tenderness to palpation in R and LLQ with mild rebound, no guarding, no appreciable organomegaly Ext: no gross muscle atrophy, no edema, no contractures Neuro: no focal neuro deficits Psych: Alert, oriented, appropriate affect Sepsis secondary to perforated sigmoid diverticulitis with abscess formation CAD status post stent Hypertension Dyslipidemia Type 2 diabetes Hypothyroidism Asthma exacerbation Based on my assessment of this patient, this patient meets a high complexity level of care. Patient has an acute diagnosis of sepsis secondary to perforated sigmoid di verticulitis with abscess formation that poses a threat to life or bodily function. Sepsis secondary to perforated sigmoid diverticulitis with abscess formation: Continue Zosyn 3.375g IV Q8H + Flagyl 500 mg IV Q6H. NPO. Pain control with CONTROL ROOM HELPER pain pump. Continue LR at 125 cc/hr. Blood culture negative. Telemetry monitoring. Surgery on board. Plans for open colectomy with ostomy with Dr. Zamorano today. CAD status post stent: Continue ASA 81 mg PO QD. Hold Brilinta for surgical intervention. Continue Metoprolol 50 mg PO QD. Continue Crestor when OK with surgery. Hypertension: BP 130/74. Continue Metoprolol as above. Continue Hydralazine 25 mg PO BID and Lisinopril 40 mg PO QD. Type 2 diabetes: Insulin sliding scale. Accuchecks ACHS. Hypoglycemic precautions. Hypothyroidism: Continue Synthroid 100 mcg PO QD. Asthma : Albuterol inhaler PRN for SOB/wheezing. I have reviewed the following information consultant notes: I have reviewed the results of the following tests: CBC, BMP, Echo. I have ordered the following tests: CBC, BMP. I have discussed the care of this patient with the following independent historian: I have independently interpreted the following test below: I have discussed the management of this patient with the following physician: Case discussed with Dr. Hernandez with plans as above. This patient has a high risk of morbidity due to the following reasons: Patient is on a Dilaudid CONTROL ROOM HELPER pump for pain control. Objective - Vital Signs Vital signs: Vital Signs Temp 99 F 12/16/22 06:54 Pulse 82 12/16/22 06:54 Resp 15 12/16/22 06:54 BP 130/74 12/16/22 06:54 Pulse Ox 93 L 12/16/22 08:32 FiO2 Intake & Output 12/15/22 12/16/22 12/16/22 18:59 06:59 18:59 Other: # Voids 2 - Labs CBC & Chem 7: 12/16/22 07:31 12/16/22 07:31 Labs: Abnormal Lab Results - Last 24 Hours (Table) 12/16/22 12/16/22 Range/Units 07:31 07:31 RBC 3.43 L (4.40-5.60) X 10*6/uL Hgb 9.5 L (13.0-17.0) d/dL Hct 29.8 L (39.6-50.0) % MCHC 31.9 L (32.0-37.0) d/dL RDW 15.8 H (11.5-14.5) % MPV 9.2 L (9.5-12.2) FL BUN <3.5 L (9.0-27.0) mg/dL BUN/Creatinine Ratio <4.38 L (12.00-20.00) Ratio Calcium 8.6 L (8.7-10.3) mg/dL
[2022-12-16 14:46] LABS: Glucose,Whole Blood 109 mg/dL (70-110)
[2022-12-16] MEDS ORDERED: ceFAZolin 3 GM in SODIUM CHLORIDE 0.9% 100 ML IVPB ONE (14:49)
[2022-12-16] MEDS ORDERED: MIDAZOLAM 2 MG/2 ML VIAL IVP ONE (15:00)
[2022-12-16] MEDS ORDERED: LACTATED RINGERS 1,000 ML IV ONE ×2 (15:02→19:34)
[2022-12-16] MEDS: ONDANSETRON 4 MG/2 ML VIAL IVP PRN (15:02)
[2022-12-16] MEDS ORDERED: fentaNYL (PF) 50 MCG/ML 2 ML AMP IVP ONE (15:03)
[2022-12-16] MEDS ORDERED: SUCCINYLCHOLINE CHLORIDE 200 MG/10 ML VIAL IV ONE (15:21)
[2022-12-16] MEDS ORDERED: PHENYLEPHRINE-0.9% NACL SYG 1,000 MCG/10 ML SYRINGE ONE (15:21)
[2022-12-16] MEDS ORDERED: MIDAZOLAM 2 MG/2 ML VIAL ONE (15:21)
[2022-12-16] MEDS ORDERED: HEPARIN SODIUM,PORCINE 5,000 UNIT/ML 1 ML VIAL ONE (15:21)
[2022-12-16] MEDS ORDERED: GLYCOPYRROLATE 0.2 MG/ML 2 ML VIAL ONE (15:21)
[2022-12-16] MEDS ORDERED: LIDOCAINE 2% INJ 20 MG/ML (2 ML VIAL) ONE (15:21)
[2022-12-16] MEDS ORDERED: ROCURONIUM 10 MG/ML (5 ML VIAL) IV ONE (15:21)
[2022-12-16] MEDS ORDERED: PROPOFOL 10 MG/ML 20 ML VIAL IV ONE (15:21)
[2022-12-16] MEDS ORDERED: NEOSTIGMINE 1 MG/ML 10 ML VIAL ONE (15:21)
[2022-12-16] MEDS ORDERED: fentaNYL (PF) 50 MCG/ML 2 ML AMP ONE (15:21)
[2022-12-16] MEDS ORDERED: ROPIVACAINE 5 MG/ML 30 ML VIAL ONE (15:21)
--- NOTE | 2022-12-16 16:19 | P.PN ---
Subjective Progress Note Date: 12/16/22 Principal diagnosis: Perforated diverticulitis and intra-abdominal abscess Patient is a 57 year male with a recent admission to the hospital with perforated diverticulitis and abscess status post laparoscopic drainage culture were negative patient received 2 weeks of IV antibiotic in the hospital subsequent discharged on oral antibiotic and presented back to the hospital with worsening abdominal pain, patient did have CT of abdominal pelvis which did shows trace peritoneal and abscess. On today's evaluation that is 12/16/2022 the patient remains to be afebrile, the patient is breathing comfortably controlled and is on oxygen denies any chest pain shortness of breath or cough denies any worsening abdominal pain no nausea no vomiting did have some bowel movements. Patient did have white count of 5.83 creatinine 0.8 Objective - Vital Signs Vital signs: Vital Signs Temp 99 F 12/16/22 06:54 Pulse 82 12/16/22 06:54 Resp 15 12/16/22 06:54 BP 130/74 12/16/22 06:54 Pulse Ox 93 L 12/16/22 08:32 FiO2 Intake & Output 12/15/22 12/16/22 12/16/22 18:59 06:59 18:59 Other: # Voids 2 - Exam GENERAL DESCRIPTION: Middle-age male lying in bed in no distress RESPIRATORY SYSTEM: Unlabored breathing , clear to auscultation anteriorly HEART: S1 S2 regular rate and rhythm , ABDOMEN: Soft , mild distention and tenderness EXTREMITIES: No edema feet - Labs CBC & Chem 7: 12/16/22 07:31 12/16/22 07:31 Labs: Abnormal Lab Results - Last 24 Hours (Table) 12/16/22 Range/Units 07:31 RBC 3.43 L (4.40-5.60) X 10*6/uL Hgb 9.5 L (13.0-17.0) d/dL Hct 29.8 L (39.6-50.0) % MCHC 31.9 L (32.0-37.0) d/dL RDW 15.8 H (11.5-14.5) % MPV 9.2 L (9.5-12.2) FL Assessment and Plan (1) Diverticulitis of intestine, part unspecified, with perforation and abscess without bleeding Current Visit: No Status: Acute Code(s): K57.80 - DVTRCLI OF INTEST, PART UNSP, W PERF AND ABSCESS W/O BLEED SNOMED Code(s): 403012097 (2) Intra-abdominal abscess Current Visit: No Status: Acute Code(s): K65.1 - PERITONEAL ABSCESS SNOMED Code(s): 08882452 Plan: 1patient with intra-abdominal abscess from perforated diverticulitis in this patient with a previous laparoscopic drainage of the abscess and cultures were negative now presented back to the hospital with worsening abdominal pain and evidence of perforation diverticulitis with intra-abdominal abscess slightly decreased in size, with a previous laparoscopic drainage culture did not grow any bacteria 2- patient is afebrile and the patient white count is normal 3- the patient did have a repeat a CT abdominal pelvis that was reviewed with the IR and cannot be drained CT-guided, plan is for surgical drainage during this admission per surgical note 4-Patient to continue with the Nelsysyn , patient scheduled for surgical procedure this afternoon and possible drainage of the abscess and culture which will be followed and monitored clinical course closely Dictation was produced using [employer] dictation software. please excuse any grammatical, word or spelling errors. Time with Patient: Less than 30
[2022-12-16 20:02] LABS: Glucose,Whole Blood 149 mg/dL (70-110)
[2022-12-16] MEDS ORDERED: HYDROmorphone 0.5 MG/0.5 ML SYRINGE IVP ONE (20:06)
[2022-12-16 21:03] LABS: Glucose,Whole Blood 171 mg/dL (70-110)
[2022-12-16] MEDS: KETOROLAC 15 MG/ML 1 ML VIAL IVP SCH (23:20)
--- NOTE | 2022-12-16 23:22 | P.ANPRN ---
Procedure Note - Anesthesia - Nerve Block Performed Bilateral Rectus Abdominis Single Time Out Performed: Yes (1500) Date of Procedure: 12/16/22 Procedure Start Time: 15:01 Procedure Stop Time: 15:07 Location of Patient: PreOp Indication: Acute Post-Operative Pain, Requested by Surgeon Specifically requested for management of pain by DrNoemi: Isha Zamorano Sedation Type: Sedate with meaningful contact maintained Preparation: Sterile Prep Position: Supine Catheter: None Needle Types: Pajunk Needle Gauge: 21 Ultrasound used to visualize needle placement: Yes Ultrasound used to observe medication spread: Yes Injectate: 0.5% Ropivacaine (see comment for volume) (30cc each side) Blood Aspirated: No Pain Paresthesia on Injection Noted: No Resistance on Injection: Normal Image Stored and Saved: Yes Events: Uneventful and Well Tolerated
[2022-12-16] MEDS: HYDROmorphone PCA 10 MG/50 ML BAG IV SCH (23:43)
[2022-12-17] MEDS: LACTATED RINGERS 1,000 ML IV SCH ×3 (02:56→23:24)
[2022-12-17] MEDS: LORazepam 2 MG/ML INJ IV PRN ×4 (02:56→22:26)
[2022-12-17] MEDS: METOCLOPRAMIDE 5 MG/ML 2 ML VIAL IVP SCH ×3 (05:22→17:33)
[2022-12-17] MEDS: KETOROLAC 15 MG/ML 1 ML VIAL IVP SCH ×3 (05:22→17:33)
[2022-12-17] MEDS: LEVOTHYROXINE 100 MCG TAB PO SCH (05:23)
[2022-12-17 06:03] LABS: Glucose,Whole Blood 133 mg/dL (70-110)
[2022-12-17] MEDS: INSULIN ASPART (NovoLOG) 100 UNIT/ML VIAL SQ SCH ×4 (06:29→22:06)
--- NOTE | 2022-12-17 08:26 | P.OP ---
Date of Procedure: 12/17/22 Description of Procedure: PREOPERATIVE DIAGNOSES: 1. Perforated diverticulitis with pneumoperitoneum/abscess 2. Ischemic cardiomyopathy 3. Hypertensive heart disease 4. Morbid obesity due to excess calories, BMI 40.7 POSTOP DIAGNOSES: 1. Perforated diverticulitis with pneumoperitoneum/abscess 2. Ischemic cardiomyopathy 3. Hypertensive heart disease 4. Morbid obesity due to excess calories, BMI 40.7 5. Pelvic abscess due to ruptured diverticulitis 6. 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 Severe pelvic adhesions with phlegmon PROCEDURES PERFORMED: 1. Exploratory laparotomy with lysis of adhesions, over 2.5 hours 2. Sigmoid colectomy 3. Descending colostomy for Mansoor's procedure 4. Abdominal lavage 3.5 L normal saline 5. Placement of round #19 César-Felder drain at pelvis 6. Placement of incisional wound VAC system, universal PREVENA, 30 cm incision 7. Excision of small bowel fistula 2, small bowel resection 2 with primary anastomosis 8. Drainage of pelvic abscess, 30 mL SURGEON: Dr. Isha Zamorano. ANESTHESIA: General ESTIMATED BLOOD LOSS: 300 mL. SPECIMENS: 1. Sigmoid colon 2. Aerobic and anaerobic cultures 3. Small bowel resection 2 COMPLICATIONS: None. CONDITION: Guarded. FINDINGS: 1. Rectal stump was tagged with 2-0 Prolene 2. Dense sigmoid concrete phlegmon of the pelvis involving the sigmoid colon, pelvic abscess 30 mL drain 3. Small bowel fistula 2 involving pelvic phlegmon with early bowel obstruction 4. Small bowel resection mid ileum and distal jejunum for small bowel fistula 5. Presence of prior abdominoplasty adding complexity to the case. 6. Per patient request, family obtained via telephone, ex- [phone] INDICATIONS: The patient is a 57-year-old male who presents with recurrent perforated diverticulitis. Patient opted for conservative management, due to persistent abdominal pain, exploratory laparotomy, bowel resection including descending colostomy were described. Cardiac risk assessment was obtained due to pre-existing hypertensive heart disease, ischemic cardiomyopathy. Benefits, risks of procedure including bleeding, infection, bowel resection and ostomy were described in detail. Informed consent was obtained. DESCRIPTION: The patient was brought to the operating room. Preoperatively he did have a nasogastric tube from the floor. He did receive hemodialysis yesterday. Additionally, he had been on heparin drip and had gotten dialyzed. The patient was brought on the operating table. An epidural was placed per Anesthesia. Please note that a central line has also been placed by anesthesia as well. After general induction, a Rick catheter was placed. The abdomen had been prepped and draped in standard sterile fashion including placement of Ioban draping. Prior to incision, a time-out protocol was confirmed with surgical team regarding the patient's name and procedures being performed. He was on scheduled IV antibiotics. Initial attention was brought to this previous cicatrix of the mid to lower abdomen. A #10 blade was used to enter the previous incision and deepened into the subcutaneous tissue. From and along the length of the incision, severe adhesions were found involving the small bowel. Carefully the abdomen was entered using a combination of blunt dissection with a Kitner as well as Metzenbaum scissors and a #10 blade. Extensive lysis of adhesions occurred well over an hour upon entry into the abdomen to avoid any enterotomies. Next once the abdomen was entered, the bowel was investigated from the ligament of Treitz distally. Multiple interloop adhesions were found involving the proximal mid and distal jejunum. Along the distal jejunum however, the small bowel was found to be tethered to the sacral promontory. He did have features of previous diverticulitis as intraabdominal nodules highly suspicious for fecal matter was found involving the left lower quadrant into the deep pelvis. Separately the cecum and ascending colon was completely decompressed. The entire ilium was also completely decompressed. Mesenteric adhesions were also similarly lysed using a combination of blunt dissection, including Metzenbaum scissors. At the left lower quadrant, the small bowel was also tethered and twisted very deep into the pelvis creating a 360 degree obstruction which is consistent with a complete bowel obstruction. Adhesiolysis was performed. The small bowel loop involved was narrowed and fibrotic consistent with chronic obstruction. The focal narrowing also created a functional obstruction despite removed the peritoneal adhesion. As a results of this finding a small bowel section was proposed. The point of resection was along the mid to distal jejunum. A 3-0 silk suture was placed along the antimesenteric border. Next the bowel was resected proximally and distally using a 60 mm Covidien mcnally staple load. The small bowel loop was dissected along its mesenteric using LigaSure. Next enterotomies were made along the antimesenteric border and a stapler 60 mm mcnally load was fired to create neolumen. The enterotomy was closed using similar stapler load. The mesenteric defect was oversewn and closed using 3-0 silk. This was also performed to prevent internal hernias along this mesenteric defect. Please note, prior to small bowel resection, the rest of the small bowel had been investigated for any other intramucosal obstruction. A soft spongy food bezoar was palpated. Per discussion with patient's , he had been eating steak which had brought him to the ER for a bowel obstruction. This food bezoar was then milked into the cecum. The decompressed distal small bowel had been resolved with ent jimbo contents leading into the colon. Prior to irrigation of the abdomen, the nasogastric tube was repositioned and confirmed with Anesthesia. The abdomen was copiously irrigated with 3 L of warm normal saline solution. Hemostasis had been checked. Given the moderate amount of irrigation a round 19 drain was exited via the right lower quadrant with suction within the deep pelvis. The greater omentum was found tether along the upper abdomen and hence Interceed was placed along the closure of the abdomen as to minimize any future peritoneal adhesions along the midline. The abdomen had been closed using double-stranded 0-PDS. The subcutaneous tissue had been cleansed. Next, interrupted 3- 0 Vicryl along the dermis was placed. A Optifoam surgical dressing was placed lengthwise. Please note, a 2-0 nylon drain stitch was placed. The tubing was cut to size, and a SUSAN bulb was placed. Optifoam dressing was also placed over the SUSAN site as well. At the end of the procedure, the sponge and instrument count had been verified correct by the surgical appliance fitter. The patient tolerated the procedure well and was brought to the anesthesia postanesthesia care unit in guarded condition. Intraabdominal findings were reviewed at length with the patient's family. Entry to the abdomen took at least 1 hour with over 2.5 hours of extensive lysis of adhesions to address all multiple areas of obstruction, at least 6 identified.
[2022-12-17 08:59] LABS: African American GFR (CKD) >90 (>60 ml/min/1.73 sqM); Anion Gap 4 mmol/L; Blood Urea Nitrogen 6 mg/dL (9-20); Carbon Dioxide 29 mmol/L (22-30); Chloride 102 mmol/L (98-107); Glucose 126 mg/dL (74-99); Non-African American GFR(CKD) >90 (>60 ml/min/1.73 sqM); Potassium 4.5 mmol/L (3.5-5.1); Sodium 135 mmol/L (137-145)
[2022-12-17] MEDS: PIPERACILLIN-TAZOBACTAM 3.375 GM in SODIUM CHLORIDE 0.9% 100 ML IVPB SCH ×2 (09:12→15:34)
[2022-12-17] MEDS: ASPIRIN 81 MG PO SCH (09:12)
[2022-12-17] MEDS: GABAPENTIN 300 MG CAP PO SCH ×3 (09:12→22:06)
[2022-12-17] MEDS: PANTOPRAZOLE 40 MG/10 ML VIAL IV SCH (09:12)
[2022-12-17] MEDS: lisinopriL 20 MG TAB PO SCH (09:12)
[2022-12-17] MEDS: HEPARIN SODIUM,PORCINE 5,000 UNIT/ML 1 ML VIAL SQ SCH ×2 (09:12→22:06)
[2022-12-17] MEDS: hydrALAZINE HCL 25 MG TAB PO SCH ×2 (09:12→22:06)
[2022-12-17] MEDS: METOPROLOL SUCCINATE (ER) 50 MG TAB.ER.24H PO SCH (09:12)
[2022-12-17] MEDS: HYDROmorphone 1 MG/ML 1 ML SYRINGE IVP PRN ×5 (09:19→23:02)
[2022-12-17 09:44] LABS: HCT 33.2 % (39.0-53.0); HGB 10.8 gm/dL (13.0-17.5); MCH 28.9 pg (25.0-35.0); MCHC 32.7 g/dL (31.0-37.0); MCV 88.2 fL (80.0-100.0); Mean Platelet Volume 7.6; Platelet Count 403 k/uL (150-450); RBC 3.76 m/uL (4.30-5.90); RDW 15.6 % (11.5-15.5); WBC 8.7 k/uL (3.8-10.6)
--- NOTE | 2022-12-17 10:20 | P.PN ---
Progress Note - Text Progress Note Date: 12/17/22 The patient's postoperative day 1 from exploratory laparotomy and small bowel resection and colostomy. Patient's complaints of incisional pain. He states his GUYLINE OPERATOR isn't holding him. On exam vital signs appear stable. Abdomen soft. Colostomy appears viable. There is no significant output. Status post exploratory lap sigmoid clipped B with and colostomy. Patient will have his GUYLINE OPERATOR stopped. He will have Dilaudid IV prescribed. He'll K receive supportive care.
[2022-12-17 11:25] LABS: Glucose,Whole Blood 151 mg/dL (70-110)
--- NOTE | 2022-12-17 14:10 | P.PN ---
Subjective Progress Note Date: 12/17/22 Patient is a 57-year-old male with history of hypertension, dyslipidemia, CAD status post stent, diabetes, hypothyroidism, asthma presenting with worsening lower abdomen pain. Patient was recently admitted for perforated acute sigmoid diverticulitis with abscess, underwent robotic lysis of adhesions, abscess not drained. Patient was discharged home with antibiotics. [facility] was consulted for medical management. In the ED, temperature was 99, pulse 98, respiratory rate 18, blood pressure 127/76, saturating at 96% on room air. Initial WBC was 14.1, now 8.5. Sodium 137, potassium 4.4, creatinine 0.88, lipase 41. 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 12/15 Patient was seen and examined. No acute events overnight. Pain well controlled on Dialudid TELETYPEWRITER INSTALLER pump. Plans for surgery on Monday. INR is 1.04. [id number] glucose ranging from 112-134 over the past 24 hours. 12/16 Patient was seen and examined. Plans for open colectomy with ostomy with Dr. Zamorano today. He continues to report abdominal pain controlled with Dilaudid TELETYPEWRITER INSTALLER pump. Had a bowel movement this morning. CBC shows hemoglobin 9.5. BMP shows < 3.5 and Ca of 8.6. Echocardiogram was done which shows EF 50-55%. 12/17 Patient was seen and examined. He underwent exploratory laparotomy with lysis of adhesions, sigmoid colectomy, drainage of pelvic abscess. He reports uncontrollable pain in his abdomen. No bowel movement since surgery not passing gas. Currently with Rick catheter. CBC shows hemoglobin of 10.8. BMP shows sodium of 135, BUN 6, glucose 126 and calcium 8. General: non toxic, no distress, appears at stated age Derm: warm, dry Head: atraumatic, normocephalic, symmetric Eyes: EOMI, no lid lag, anicteric sclera Cardiovascular: S1S2 reg, no murmur Lungs: CTA bilateral, no rhonchi, no rales , no accessory muscle use Abdominal: soft, sluggish bowel sounds with midline surgical incision dressing c/d/i, no guarding, no appreciable organomegaly, colostomy intact Ext: no gross muscle atrophy, no edema, no contractures Neuro: no focal neuro deficits Psych: Alert, oriented, appropriate affect Sepsis secondary to perforated sigmoid diverticulitis with abscess formation status post exploratory laparotomy with lysis of adhesions, sigmoid colectomy, drainage of pelvic abscess CAD status post stent Hypertension Dyslipidemia Type 2 diabetes Hypothyroidism Asthma exacerbation Based on my assessment of this patient, this patient meets a moderate complexity level of care. Patient has an acute diagnosis of sepsis secondary to perforated sigmoid diverticulitis with abscess formation that poses a threat to life or bodily function. Sepsis secondary to perforated sigmoid diverticulitis with abscess formation: Continue Zosyn 3.375g IV Q8H. CLD and advance as tolerated. TELETYPEWRITER INSTALLER pain pump discontinued and patient started on PRN Dilaudid. Continue LR at 125 cc/hr. Blood culture negative. Telemetry monitoring. Surgery on board. Exploratory lapa rotomy with lysis of adhesions, sigmoid colectomy, drainage of pelvic abscess done on 12/16. CAD status post stent: Continue ASA 81 mg PO QD. Continue Brilinta with OK with surgery. Continue Metoprolol 50 mg PO QD. Continue Crestor when OK with surgery. Hypertension: BP 112/67. Continue Metoprolol as above. Continue Hydralazine 25 mg PO BID and Lisinopril 40 mg PO QD. Type 2 diabetes: Insulin sliding scale. Accuchecks ACHS. Hypoglycemic precautions. Hypothyroidism: Continue Synthroid 100 mcg PO QD. Asthma : Albuterol inhaler PRN for SOB/wheezing. I have reviewed the following senior internet sales consultant notes: Surgery note reviewed. I have reviewed the results of the following tests: CBC, BMP. I have ordered the following tests: CBC, BMP. I have discussed the care of this patient with the following independent historian: I have independently interpreted the following test below: I have discussed the management of this patient with the following physician: This patient has a high risk of morbidity due to the following reasons: Objective - Vital Signs Vital signs: Vital Signs Temp 98.2 F 12/17/22 06:55 Pulse 98 12/17/22 07:45 Resp 19 12/17/22 07:45 BP 112/67 12/17/22 06:55 Pulse Ox 94 L 12/17/22 08:10 FiO2 Intake & Output 12/16/22 12/17/22 12/17/22 18:59 06:59 18:59 Intake Total 1000 1600 Output Total 2140 Balance 1000 -540 Weight 136.078 kg Intake: IV 1000 0 Intake, IV Titration 1600 Amount Lactated Ringers 1,000 ml 1500 @ 125 mls/hr IV .Q8H [facility] Rx#:[id number] Piperacillin-Tazobactam 3 100 .375 gm In Sodium Chloride 0.9% 100 ml @ 25 mls/hr IVPB Q8HR [facility] Rx# :[id number] Output: Drainage 20 Right Anterior Abdomen 20 Urine 1800 Estimated Blood Loss 320 Other: Voiding Method Indwelling Catheter Indwelling Catheter - Labs CBC & Chem 7: 12/17/22 07:22 12/17/22 07:22 Labs: Abnormal Lab Results - Last 24 Hours (Table) 12/16/22 12/16/22 12/17/22 Range/Units 20:02 21:00 06:02 RBC (4.30-5.90) m/uL Hgb (13.0-17.5) gm/dL Hct (39.0-53.0) % RDW (11.5-15.5) % Sodium (137-145) mmol/L BUN (9-20) mg/dL Glucose (74-99) mg/dL POC Glucose (mg/dL) 149 H 171 H 133 H (70-110) mg/dL Calcium (8.4-10.2) mg/dL 12/17/22 12/17/22 12/17/22 Range/Units 07:22 07:22 11:24 RBC 3.76 L (4.30-5.90) m/uL Hgb 10.8 L (13.0-17.5) gm/dL Hct 33.2 L (39.0-53.0) % RDW 15.6 H (11.5-15.5) % Sodium 135 L (137-145) mmol/L BUN 6 L (9-20) mg/dL Glucose 126 H (74-99) mg/dL POC Glucose (mg/dL) 151 H (70-110) mg/dL Calcium 8.0 L (8.4-10.2) mg/dL
--- NOTE | 2022-12-17 15:14 | P.PN ---
Subjective Progress Note Date: 12/17/22 Principal diagnosis: Perforated diverticulitis and intra-abdominal abscess Patient is a 57 year male with a recent admission to the hospital with perforated diverticulitis and abscess status post laparoscopic drainage culture were negative patient received 2 weeks of IV antibiotic in the hospital subsequent discharged on oral antibiotic and presented back to the hospital with worsening abdominal pain, patient did have CT of abdominal pelvis which did shows trace peritoneal and abscess.Patient is status post exploratory laparotomy with lysis of adhesion sigmoid colectomy excision of small bowel fistula x2 and small bowel resection along with primary anastomosis procedure was completed on 12/16/2022. On today's evaluation that is 12/17/2022 the patient is afebrile the patient is currently breathing comfortably on 2 L nasal cannula oxygen, The Pt denies having any chest pain or shortness of the cough abdomen is currently controlled no nausea no vomiting. Patient white count is 8.7 creatinine 0.76 abdominal cultures currently pending Objective - Vital Signs Vital signs: Vital Signs Temp 98.2 F 12/17/22 06:55 Pulse 98 12/17/22 06:55 Resp 19 12/17/22 06:55 BP 112/67 12/17/22 06:55 Pulse Ox 94 L 12/17/22 08:10 FiO2 Intake & Output 12/16/22 12/17/22 12/17/22 18:59 06:59 18:59 Intake Total 1000 1600 Output Total 2140 Balance 1000 -540 Weight 136.078 kg Intake: IV 1000 0 Intake, IV Titration 1600 Amount Lactated Ringers 1,000 ml 1500 @ 125 mls/hr IV .Q8H [facility] Rx#:[id number] Piperacillin-Tazobactam 3 100 .375 gm In Sodium Chloride 0.9% 100 ml @ 25 mls/hr IVPB Q8HR [facility] Rx# :[id number] Output: Drainage 20 Right Anterior Abdomen 20 Urine 1800 Estimated Blood Loss 320 Other: Voiding Method Indwelling Catheter - Exam GENERAL DESCRIPTION: Middle-age male lying in bed in no distress RESPIRATORY SYSTEM: Unlabored breathing , clear to auscultation anteriorly HEART: S1 S2 regular rate and rhythm , ABDOMEN: Soft , mild distention and tenderness EXTREMITIES: No edema feet - Labs CBC & Chem 7: 12/17/22 07:22 12/17/22 07:22 Labs: Abnormal Lab Results - Last 24 Hours (Table) 12/16/22 12/16/22 12/16/22 Range/Units 07:31 07:31 20:02 RBC 3.43 L (4.40-5.60) X 10*6/uL Hgb 9.5 L (13.0-17.0) d/dL Hct 29.8 L (39.6-50.0) % MCHC 31.9 L (32.0-37.0) d/dL RDW 15.8 H (11.5-14.5) % MPV 9.2 L (9.5-12.2) FL Sodium (137-145) mmol/L BUN <3.5 L (9.0-27.0) mg/dL BUN/Creatinine Ratio <4.38 L (12.00-20.00) Ratio Glucose (74-99) mg/dL POC Glucose (mg/dL) 149 H (70-110) mg/dL Calcium 8.6 L (8.7-10.3) mg/dL 12/16/22 12/17/22 12/17/22 Range/Units 21:00 06:02 07:22 RBC (4.40-5.60) X 10*6/uL Hgb (13.0-17.0) d/dL Hct (39.6-50.0) % MCHC (32.0-37.0) d/dL RDW (11.5-14.5) % MPV (9.5-12.2) FL Sodium 135 L (137-145) mmol/L BUN 6 L (9.0-27.0) mg/dL BUN/Creatinine Ratio (12.00-20.00) Ratio Glucose 126 H (74-99) mg/dL POC Glucose (mg/dL) 171 H 133 H (70-110) mg/dL Calcium 8.0 L (8.7-10.3) mg/dL Assessment and Plan (1) Diverticulitis of intestine, part unspecified, with perforation and abscess without bleeding Current Visit: No Status: Acute Code(s): K57.80 - DVTRCLI OF INTEST, PART UNSP, W PERF AND ABSCESS W/O BLEED SNOMED Code(s): 248459866 (2) Intra-abdominal abscess Current Visit: No Status: Acute Code(s): K65.1 - PERITONEAL ABSCESS SNOMED Code(s): 27995396 Plan: 1patient with intra-abdominal abscess from perforated diverticulitis in this patient with a previous laparoscopic drainage of the abscess and cultures were negative now presented back to the hospital with worsening abdominal pain and evidence of perforation diverticulitis with intra-abdominal abscess slightly decreased in size, with a previous laparoscopic drainage culture did not grow any bacteria 2- patient is afebrile and the patient white count is normal 3- the patient did have a repeat a CT abdominal pelvis that was reviewed with the IR and cannot be drained CT-guided, Patient status post extensive surgery drainage of the abscess sigmoid colectomy resection of the small bowel fistula and primary anastomosis completed on 12/16/2022. 4patient to continue with the Zosyn OR cultures to monitor closely antibiotic adjusted if needed. Questions concerns answered Dictation was produced using [employer] dictation software. please excuse any grammatical, word or spelling errors.
[2022-12-17 16:29] LABS: Glucose,Whole Blood 183 mg/dL (70-110)
[2022-12-17 20:30] LABS: Glucose,Whole Blood 151 mg/dL (70-110)
[2022-12-18] MEDS: KETOROLAC 15 MG/ML 1 ML VIAL IVP SCH ×4 (00:21→17:15)
[2022-12-18] MEDS: PIPERACILLIN-TAZOBACTAM 3.375 GM in SODIUM CHLORIDE 0.9% 100 ML IVPB SCH ×4 (00:21→23:45)
[2022-12-18] MEDS: METOCLOPRAMIDE 5 MG/ML 2 ML VIAL IVP SCH ×4 (00:22→17:20)
[2022-12-18] MEDS: LACTATED RINGERS 1,000 ML IV SCH ×4 (00:59→23:45)
[2022-12-18] MEDS: HYDROmorphone 0.5 MG/0.5 ML SYRINGE IVP PRN ×2 (01:00→03:43)
[2022-12-18] MEDS: HYDROmorphone 1 MG/ML 1 ML SYRINGE IVP PRN ×8 (02:15→23:45)
[2022-12-18 06:05] LABS: Glucose,Whole Blood 138 mg/dL (70-110)
[2022-12-18] MEDS: LEVOTHYROXINE 100 MCG TAB PO SCH (06:05)
[2022-12-18] MEDS: INSULIN ASPART (NovoLOG) 100 UNIT/ML VIAL SQ SCH ×4 (06:13→22:10)
[2022-12-18] MEDS: ONDANSETRON 4 MG/2 ML VIAL IVP PRN (08:01)
[2022-12-18 08:05] LABS: HCT 28.8 % (39.0-53.0); HGB 9.5 gm/dL (13.0-17.5); Hypochromasia Slight; MCH 29.3 pg (25.0-35.0); MCV 88.6 fL (80.0-100.0); Mean Platelet Volume 7.6; Platelet Count 458 k/uL (150-450); RBC 3.25 m/uL (4.30-5.90); RDW 15.7 % (11.5-15.5); WBC 11.1 k/uL (3.8-10.6)
[2022-12-18] MEDS: PANTOPRAZOLE 40 MG/10 ML VIAL IV SCH (08:08)
[2022-12-18 08:19] LABS: African American GFR (CKD) >90 (>60 ml/min/1.73 sqM); Blood Urea Nitrogen 9 mg/dL (9-20); Calcium 8.2 mg/dL (8.4-10.2); Carbon Dioxide 30 mmol/L (22-30); Glucose 138 mg/dL (74-99); Non-African American GFR(CKD) >90 (>60 ml/min/1.73 sqM); Sodium 135 mmol/L (137-145)
[2022-12-18] MEDS: ASPIRIN 81 MG PO SCH (09:05)
[2022-12-18] MEDS: hydrALAZINE HCL 25 MG TAB PO SCH (09:05)
[2022-12-18] MEDS: GABAPENTIN 300 MG CAP PO SCH ×3 (09:05→22:10)
[2022-12-18] MEDS: lisinopriL 20 MG TAB PO SCH (09:05)
[2022-12-18] MEDS: METOPROLOL SUCCINATE (ER) 50 MG TAB.ER.24H PO SCH (09:05)
[2022-12-18] MEDS: HEPARIN SODIUM,PORCINE 5,000 UNIT/ML 1 ML VIAL SQ SCH ×3 (09:05→20:56)
[2022-12-18 09:59] LABS: Anion Gap 5 mmol/L; Chloride 100 mmol/L (98-107)
[2022-12-18 11:41] LABS: Glucose,Whole Blood 223 mg/dL (70-110)
--- NOTE | 2022-12-18 12:46 | P.PN ---
Subjective Progress Note Date: 12/18/22 Patient is a 57-year-old male with history of hypertension, dyslipidemia, CAD status post stent, diabetes, hypothyroidism, asthma presenting with worsening lower abdomen pain. Patient was recently admitted for perforated acute sigmoid diverticulitis with abscess, underwent robotic lysis of adhesions, abscess not drained. Patient was discharged home with antibiotics. [facility] was consulted for medical management. In the ED, temperature was 99, pulse 98, respiratory rate 18, blood pressure 127/76, saturating at 96% on room air. Initial WBC was 14.1, now 8.5. Sodium 137, potassium 4.4, creatinine 0.88, lipase 41. 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 12/15 Patient was seen and examined. No acute events overnight. Pain well controlled on Dialudid SHIFT COMMANDER pump. Plans for surgery on Monday. INR is 1.04. [id number] glucose ranging from 112-134 over the past 24 hours. 12/16 Patient was seen and examined. Plans for open colectomy with ostomy with Dr. Zamorano today. He continues to report abdominal pain controlled with Dilaudid SHIFT COMMANDER pump. Had a bowel movement this morning. CBC shows hemoglobin 9.5. BMP shows < 3.5 and Ca of 8.6. Echocardiogram was done which shows EF 50-55%. 12/17 Patient was seen and examined. He underwent exploratory laparotomy with lysis of adhesions, sigmoid colectomy, drainage of pelvic abscess. He reports uncontrollable pain in his abdomen. No bowel movement since surgery not passing gas. Currently with Rick catheter. CBC shows hemoglobin of 10.8. BMP shows sodium of 135, BUN 6, glucose 126 and calcium 8. 12/18 Patient was seen and examined. He reports 9/10 severity abdominal pain. SHIFT COMMANDER pump discontinued yesterday for IV Toradol and Dilaudid as needed. He reports bilious nausea and vomiting. No bowel movement, not passing gas. No stool in ostomy. CBC shows WBC count of 11.1 and hemoglobin 9.5 along with platelet count of 458. BMP shows sodium 135 and glucose of 138, calcium of 8.2. General: non toxic, no distress, appears at stated age Derm: warm, dry Head: atraumatic, normocephalic, symmetric Eyes: EOMI, no lid lag, anicteric sclera Cardiovascular: S1S2 reg, no murmur Lungs: CTA bilateral, no rhonchi, no rales , no accessory muscle use Abdominal: no bowel sounds with midline surgical incision dressing c/d/i, no guarding, no appreciable organomegaly, colostomy intact Ext: no gross muscle atrophy, no edema, no contractures Neuro: no focal neuro deficits Psych: Alert, oriented, appropriate affect Sepsis secondary to perforated sigmoid diverticulitis with abscess formation status post exploratory laparotomy with lysis of adhesions, sigmoid colectomy, drainage of pelvic abscess CAD status post stent Hypertension Dyslipidemia Type 2 diabetes Hypothyroidism Asthma exacerbation Based on my assessment of this patient, this patient meets a moderate complexity level of care. Patient has an acute diagnosis of sepsis secondary to perforated sigmoid diverticulitis with abscess formation that poses a threat to life or bodily function. Sepsis secondary to perforated sigmoid diverticulitis with abscess formation: Continue Zosyn 3.375g IV Q8H. CLD and advance as tolerated. SHIFT COMMANDER pain pump discontinued and patient started on PRN Dilaudid. Continue LR at 125 cc/hr. Bl ood culture negative. Telemetry monitoring. Surgery on board. Exploratory laparotomy with lysis of adhesions, sigmoid colectomy, drainage of pelvic abscess done on 12/16. KUB ordered to rule out ileus. CAD status post stent: Continue ASA 81 mg PO QD. Continue Brilinta with OK with surgery. Continue Metoprolol 50 mg PO QD. Continue Crestor when OK with surgery. Hypertension: BP 146/92. Continue Metoprolol as above. Continue Hydralazine 25 mg PO BID and Lisinopril 40 mg PO QD. Type 2 diabetes: Insulin sliding scale. Accuchecks ACHS. Hypoglycemic precautions. Hypothyroidism: Continue Synthroid 100 mcg PO QD. Asthma : Albuterol inhaler PRN for SOB/wheezing. I have reviewed the following senior management consultant notes: I have reviewed the results of the following tests: CBC, BMP. I have ordered the following tests: CBC, BMP. KUB. I have discussed the care of this patient with the following independent historian: I have independently interpreted the following test below: I have discussed the management of this patient with the following physician: This patient has a high risk of morbidity due to the following reasons: Objective - Vital Signs Vital signs: Vital Signs Temp 97.9 F 12/18/22 07:40 Pulse 101 H 08/20/23 07:40 Resp 23 12/18/22 07:40 BP 146/92 12/18/22 07:40 Pulse Ox 93 L 12/18/22 07:40 FiO2 Intake & Output 12/17/22 12/18/22 12/18/22 18:59 06:59 18:59 Intake Total 1840 Output Total 1575 1270 1200 Balance -1575 570 -1200 Intake: Intake, IV Titration 1600 Amount Lactated Ringers 1,000 ml 1500 @ 125 mls/hr IV .Q8H [facility] Rx#:[id number] Piperacillin-Tazobactam 3 100 .375 gm In Sodium Chloride 0.9% 100 ml @ 25 mls/hr IVPB Q8HR [facility] Rx# :[id number] Oral 240 Output: Drainage 70 Right Abdomen 70 Right Anterior Abdomen 0 Urine 1575 1200 1200 Other: Voiding Method Indwelling Catheter Indwelling Catheter Indwelling Catheter # Voids 2 - Labs CBC & Chem 7: 12/18/22 07:02 12/18/22 07:02 Labs: Abnormal Lab Results - Last 24 Hours (Table) 12/17/22 12/17/22 12/18/22 Range/Units 16:28 20:27 06:01 WBC (3.8-10.6) k/uL RBC (4.30-5.90) m/uL Hgb (13.0-17.5) gm/dL Hct (39.0-53.0) % RDW (11.5-15.5) % Plt Count (150-450) k/uL Sodium (137-145) mmol/L Glucose (74-99) mg/dL POC Glucose (mg/dL) 183 H 151 H 138 H (70-110) mg/dL Calcium (8.4-10.2) mg/dL 12/18/22 12/18/22 12/18/22 Range/Units 07:02 07:02 11:40 WBC 11.1 H (3.8-10.6) k/uL RBC 3.25 L (4.30-5.90) m/uL Hgb 9.5 L (13.0-17.5) gm/dL Hct 28.8 L (39.0-53.0) % RDW 15.7 H (11.5-15.5) % Plt Count 458 H (150-450) k/uL Sodium 135 L (137-145) mmol/L Glucose 138 H (74-99) mg/dL POC Glucose (mg/dL) 223 H (70-110) mg/dL Calcium 8.2 L (8.4-10.2) mg/dL Microbiology - Last 24 Hours (Table) 12/16/22 18:57 Gram Stain - Preliminary Other - Other 12/16/22 18:57 Gram Stain - Preliminary Other - Other
[2022-12-18] MEDS: LORazepam 2 MG/ML INJ IV PRN ×2 (13:11→20:55)
--- NOTE | 2022-12-18 13:26 | XR ---
EXAMINATION TYPE: XR KUB portable DATE OF EXAM: 12/18/2022 COMPARISON: CT abdomen pelvis 12/12/2022 HISTORY: Abdominal distention, evaluate for ileus. TECHNIQUE: Supine view of the abdomen was obtained with 3 radiographs. FINDINGS: There is some mildly distended small bowel within the left lower quadrant measuring up to 3.5 cm. Gas and fecal material is seen in non-distended colon. Post surgical changes with midline skin linsey. Surgical drain identified and terminating in the lef t lower quadrant. Additional surgical drain terminates in the left upper quadrant. No unusual calcifications. The osseous structures are intact. Degenerative changes of the spine. IMPRESSION: 1. Findings suggestive of an ileus with mildly dilated small bowel in the left lower quadrant. 2. Postsurgical changes.
--- NOTE | 2022-12-18 14:25 | P.PN ---
Progress Note - Text Progress Note Date: 12/18/22 The patient throughout his lunch. He is quite some nausea. The patient has a kidney basal with a large amount of bilious fluid. On exam vital signs appear stable. Abdomen soft obese with some minimal distention. There is some mild incisional pain. Status post sigmoid resection with colostomy. Patient has developed a postoperative ileus. He is made nothing by mouth. I recommended patient have nasogastric tube he is reluctant at this time. He'll be closely observed.
[2022-12-18 16:44] LABS: Glucose,Whole Blood 183 mg/dL (70-110)
[2022-12-18 21:06] LABS: Glucose,Whole Blood 131 mg/dL (70-110)
[2022-12-19] MEDS: METOCLOPRAMIDE 5 MG/ML 2 ML VIAL IVP SCH ×5 (00:47→23:45)
[2022-12-19] MEDS: hydrALAZINE HCL 25 MG TAB PO SCH ×3 (01:20→21:04)
[2022-12-19] MEDS: LORazepam 2 MG/ML INJ IV PRN ×5 (02:36→20:55)
[2022-12-19] MEDS: HYDROmorphone 1 MG/ML 1 ML SYRINGE IVP PRN ×6 (04:56→23:45)
[2022-12-19] MEDS: LEVOTHYROXINE 100 MCG TAB PO SCH (05:32)
[2022-12-19 05:54] LABS: Glucose,Whole Blood 136 mg/dL (70-110)
[2022-12-19] MEDS: INSULIN ASPART (NovoLOG) 100 UNIT/ML VIAL SQ SCH ×4 (07:42→21:04)
[2022-12-19] MEDS: PIPERACILLIN-TAZOBACTAM 3.375 GM in SODIUM CHLORIDE 0.9% 100 ML IVPB SCH ×3 (08:14→23:46)
[2022-12-19] MEDS: PANTOPRAZOLE 40 MG/10 ML VIAL IV SCH (08:15)
[2022-12-19] MEDS: HEPARIN SODIUM,PORCINE 5,000 UNIT/ML 1 ML VIAL SQ SCH ×2 (08:15→21:02)
[2022-12-19] MEDS: LACTATED RINGERS 1,000 ML IV SCH ×2 (08:15→17:09)
--- NOTE | 2022-12-19 08:15 | P.PN ---
Subjective Progress Note Date: 12/18/22 Principal diagnosis: Perforated diverticulitis and intra-abdominal abscess Patient is a 57 year male with a recent admission to the hospital with perforated diverticulitis and abscess status post laparoscopic drainage culture were negative patient received 2 weeks of IV antibiotic in the hospital subsequent discharged on oral antibiotic and presented back to the hospital with worsening abdominal pain, patient did have CT of abdominal pelvis which did shows trace peritoneal and abscess.Patient is status post exploratory laparotomy with lysis of adhesion sigmoid colectomy excision of small bowel fistula x2 and small bowel resection along with primary anastomosis procedure was completed on 12/16/2022. On today's evaluation that is 12/18/2022, the patient is afebrile, breathing comfortably on 2 L nasal cannula oxygen patient has been complaining of nausea and did have episodes of vomiting denies any worsening abdominal pain, no output in colostomy no chest pain shortness of breath or cough. Patient did have hemoglobin 9.5 vitamin of 11.1 creatinine 0.81 abdominal cultures currently pending Objective - Vital Signs Vital signs: Vital Signs Temp 98.0 F 12/18/22 19:37 Pulse 99 12/18/22 19:37 Resp 18 12/18/22 19:37 BP 129/76 12/18/22 19:37 Pulse Ox 86 L 12/18/22 19:37 FiO2 Intake & Output 12/18/22 12/18/22 12/19/22 06:59 18:59 06:59 Intake Total 1840 500 Output Total 1270 6735 Balance 570 -6235 Intake: Intake, IV Titration 1600 100 Amount Lactated Ringers 1,000 ml 1500 @ 125 mls/hr IV .Q8H [facility] Rx#:[id number] Piperacillin-Tazobactam 3 100 100 .375 gm In Sodium Chloride 0.9% 100 ml @ 25 mls/hr IVPB Q8HR [facility] Rx# :[id number] Oral 240 400 Output: Gastric Drainage 3000 Drainage 70 35 Right Abdomen 70 35 Right Anterior Abdomen 0 Urine 1200 2200 Emesis 1500 Other: Voiding Method Indwelling Catheter Indwelling Catheter # Voids 2 - Exam GENERAL DESCRIPTION: Middle-age male lying in bed in no distress RESPIRATORY SYSTEM: Unlabored breathing , clear to auscultation anteriorly HEART: S1 S2 regular rate and rhythm , ABDOMEN: Soft , mild distention and tenderness EXTREMITIES: No edema feet - Labs CBC & Chem 7: 12/18/22 07:02 12/18/22 07:02 Labs: Abnormal Lab Results - Last 24 Hours (Table) 12/18/22 12/18/22 12/18/22 Range/Units 06:01 07:02 07:02 WBC 11.1 H (3.8-10.6) k/uL RBC 3.25 L (4.30-5.90) m/uL Hgb 9.5 L (13.0-17.5) gm/dL Hct 28.8 L (39.0-53.0) % RDW 15.7 H (11.5-15.5) % Plt Count 458 H (150-450) k/uL Sodium 135 L (137-145) mmol/L Glucose 138 H (74-99) mg/dL POC Glucose (mg/dL) 138 H (70-110) mg/dL Calcium 8.2 L (8.4-10.2) mg/dL 12/18/22 12/18/22 12/18/22 Range/Units 11:40 16:42 21:04 WBC (3.8-10.6) k/uL RBC (4.30-5.90) m/uL Hgb (13.0-17.5) gm/dL Hct (39.0-53.0) % RDW (11.5-15.5) % Plt Count (150-450) k/uL Sodium (137-145) mmol/L Glucose (74-99) mg/dL POC Glucose (mg/dL) 223 H 183 H 131 H (70-110) mg/dL Calcium (8.4-10.2) mg/dL Microbiology - Last 24 Hours (Table) 12/16/22 18:57 Gram Stain - Preliminary Other - Other Wound Culture - Preliminary 12/16/22 18:57 Anaerobic Culture - Preliminary Other - Other 12/16/22 18:57 Gram Stain - Preliminary Other - Other Assessment and Plan (1) Diverticulitis of intestine, part unspecified, with perforation and abscess without bleeding Current Visit: No Status: Acute Code(s): K57.80 - DVTRCLI OF INTEST, PART UNSP, W PERF AND ABSCESS W/O BLEED SNOMED Code(s): 011404512 (2) Intra-abdominal abscess Current Visit: No Status: Acute Code(s): K65.1 - PERITONEAL ABSCESS SNOMED Code(s): 71508170 Plan: 1patient with intra-abdominal abscess from perforated diverticulitis in this patient with a previous laparoscopic drainage of the abscess and cultures were negative now presented back to the hospital with worsening abdominal pain and ev idence of perforation diverticulitis with intra-abdominal abscess slightly decreased in size, with a previous laparoscopic drainage culture did not grow any bacteria 2- patient is afebrile and the patient white count is normal 3- the patient did have a repeat a CT abdominal pelvis that was reviewed with the IR and cannot be drained CT-guided, Patient status post extensive surgery drainage of the abscess sigmoid colectomy resection of the small bowel fistula and primary anastomosis completed on 12/16/2022 abdominal cultures were obtained which are currently pending. 4patient to continue with the Zosyn did have developed significant vomiting being monitored closely by surgery KUB x-ray was suggestive of ileus Dictation was produced using [employer] dictation software. please excuse any grammatical, word or spelling errors.
[2022-12-19] MEDS: ASPIRIN 81 MG PO SCH (08:16)
[2022-12-19] MEDS: GABAPENTIN 300 MG CAP PO SCH ×3 (08:24→21:05)
[2022-12-19] MEDS: lisinopriL 20 MG TAB PO SCH (08:25)
[2022-12-19] MEDS: METOPROLOL SUCCINATE (ER) 50 MG TAB.ER.24H PO SCH (08:25)
[2022-12-19] MEDS: ONDANSETRON 4 MG/2 ML VIAL IVP PRN (08:32)
--- NOTE | 2022-12-19 10:18 | P.PN ---
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 Over the weekend, patient developed emesis from ileus. Nasogastric tube present. He reports improvement of his abdominal pain. 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 No new chest pain. No productive sputum PHYSICAL EXAM: VITAL SIGNS: Reviewed CONSTITUTIONAL: Well developed and in no acute distress. EYES: Conjuctivae without sclera icterus. Extraocular movements grossly intact. HEAD, EARS, NOSE, THROAT: Moist buccal mucosa. Head is atraumatic, normocephalic. Hears conversational speech. No nasal drainage. RESPIRATORY: Non-labored respirations and equal bilateral excursions. CARDIOVASCULAR: Palpable 2+ radial pulses. ABDOMEN: Obese. Incisional wound VAC intact. Ostomy with blood. MUSCULOSKELETAL: No gross deformity of the lower extremities noted. No cl ubbing. No cyanosis. SKIN: Good skin turgor. Well perfused. NEUROLOGIC: Cranial nerves II through XII grossly intact. No focal or lateralizing signs. PSYCH: Appropriate affect. Alert and oriented to person, place and time. CLINICAL LABS: Reviewed. WBC elevated 11,000 12/17/2022. ASSESSMENT: 1. Perforated diverticulitis with abscess and phlegmon 2. Morbid obesity due to excess calories 3. Hypokalemia 4. Small bowel fistula status post resection PLAN: 1. Continue nasogastric tube for ileus, expected outcome following surgery 2. May have ice chips popsicles 3. TPN management 4. IV antibiotic management per infectious disease 5. CBC ordered. 6. All questions addressed with patient Objective - Vital Signs Vital signs: Vital Signs Temp 99.2 F 12/19/22 07:16 Pulse 76 12/19/22 07:16 Resp 16 12/19/22 07:16 BP 120/73 12/19/22 07:16 Pulse Ox 95 12/19/22 07:16 FiO2 Intake & Output 12/18/22 12/19/22 12/19/22 18:59 06:59 18:59 Intake Total 500 1500 Output Total 6735 725 1870 Balance -6261 821 -6059 Intake: Intake, IV Titration 100 1500 Amount Lactated Ringers 1,000 ml 1500 @ 125 mls/hr IV .Q8H [facility] Rx#:[id number] Piperacillin-Tazobactam 3 100 .375 gm In Sodium Chloride 0.9% 100 ml @ 25 mls/hr IVPB Q8HR [facility] Rx# :[id number] Oral 400 Output: Gastric Drainage 3000 725 1250 Drainage 35 0 20 Right Abdomen 35 20 Right Anterior Abdomen 0 Urine 2200 600 Emesis 1500 Other: Voiding Method Indwelling Catheter Indwelling Catheter # Voids 2 - Labs CBC & Chem 7: 12/18/22 07:02 12/18/22 07:02 Labs: Abnormal Lab Results - Last 24 Hours (Table) 12/18/22 12/18/22 12/18/22 Range/Units 11:40 16:42 21:04 POC Glucose (mg/dL) 223 H 183 H 131 H (70-110) mg/dL 12/19/22 Range/Units 05:53 POC Glucose (mg/dL) 136 H (70-110) mg/dL Microbiology - Last 24 Hours (Table) 12/16/22 18:57 Anaerobic Culture - Preliminary Other - Other 12/16/22 18:57 Gram Stain - Preliminary Other - Other Wound Culture - Preliminary 12/16/22 18:57 Anaerobic Culture - Preliminary Other - Other 12/16/22 18:57 Gram Stain - Preliminary Other - Other
[2022-12-19 11:13] LABS: Glucose,Whole Blood 146 mg/dL (70-110)
[2022-12-19 11:33] LABS: Basophils % (A) 0 %; Eosinophils # (A) 0.2 k/uL (0-0.7); Eosinophils % (A) 2 %; HCT 23.4 % (39.0-53.0); Hypochromasia Slight; Lymphocytes # (A) 1.4 k/uL (1.0-4.8); Lymphocytes % (A) 17 %; MCH 28.5 pg (25.0-35.0); MCHC 31.9 g/dL (31.0-37.0); MCV 89.3 fL (80.0-100.0); Mean Platelet Volume 8.3; Monocytes # (A) 0.6 k/uL (0-1.0); Monocytes % (A) 7 %; Neutrophils % (A) 72 %; Platelet Count 400 k/uL (150-450); RBC 2.62 m/uL (4.30-5.90); RDW 15.6 % (11.5-15.5); WBC 8.4 k/uL (3.8-10.6)
[2022-12-19 11:35] LABS: HGB 7.5 gm/dL (13.0-17.5)
[2022-12-19 13:05] LABS: ALT 19 U/L (4-49); AST 43 U/L (17-59); African American GFR (CKD) >90 (>60 ml/min/1.73 sqM); Albumin 2.6 g/dL (3.5-5.0); Albumin/Globulin Ratio 0.9; Alkaline Phosphatase 42 U/L (38-126); Anion Gap 8 mmol/L; Blood Urea Nitrogen 13 mg/dL (9-20); Calcium 8.2 mg/dL (8.4-10.2); Carbon Dioxide 31 mmol/L (22-30); Chloride 102 mmol/L (98-107); Globulin 2.9 g/dL; Glucose 133 mg/dL (74-99); Non-African American GFR(CKD) >90 (>60 ml/min/1.73 sqM); Phosphorus 3.6 mg/dL (2.5-4.5); Potassium 3.9 mmol/L (3.5-5.1); Sodium 141 mmol/L (137-145); Total Bilirubin 0.3 mg/dL (0.2-1.3); Total Protein 5.5 g/dL (6.3-8.2)
--- NOTE | 2022-12-19 13:24 | P.PN ---
Subjective Progress Note Date: 12/19/22 Patient is a 57-year-old male with history of hypertension, dyslipidemia, CAD status post stent, diabetes, hypothyroidism, asthma presenting with worsening lower abdomen pain. Patient was recently admitted for perforated acute sigmoid diverticulitis with abscess, underwent robotic lysis of adhesions, abscess not drained. Patient was discharged home with antibiotics. [facility] was consulted for medical management. In the ED, temperature was 99, pulse 98, respiratory rate 18, blood pressure 127/76, saturating at 96% on room air. Initial WBC was 14.1, now 8.5. Sodium 137, potassium 4.4, creatinine 0.88, lipase 41. 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 12/15 Patient was seen and examined. No acute events overnight. Pain well controlled on Dialudid STEM CRUSHER pump. Plans for surgery on Monday. INR is 1.04. [id number] glucose ranging from 112-134 over the past 24 hours. 12/16 Patient was seen and examined. Plans for open colectomy with ostomy with Dr. Zamorano today. He continues to report abdominal pain controlled with Dilaudid STEM CRUSHER pump. Had a bowel movement this morning. CBC shows hemoglobin 9.5. BMP shows < 3.5 and Ca of 8.6. Echocardiogram was done which shows EF 50-55%. 12/17 Patient was seen and examined. He underwent exploratory laparotomy with lysis of adhesions, sigmoid colectomy, drainage of pelvic abscess. He reports uncontrollable pain in his abdomen. No bowel movement since surgery not passing gas. Currently with Rick catheter. CBC shows hemoglobin of 10.8. BMP shows sodium of 135, BUN 6, glucose 126 and calcium 8. 12/18 Patient was seen and examined. He reports 9/10 severity abdominal pain. STEM CRUSHER pump discontinued yesterday for IV Toradol and Dilaudid as needed. He reports bilious nausea and vomiting. No bowel movement, not passing gas. No stool in ostomy. CBC shows WBC count of 11.1 and hemoglobin 9.5 along with platelet count of 458. BMP shows sodium 135 and glucose of 138, calcium of 8.2. 12/19 Patient was seen and examined. KUB done yesterday confirming ileus. He reports multiple episode of N/V since yesterday. Abdominal pain is well controlled on current pain medications. Currently with NG tube draining over 3L bilious material. Started on Reglan 10 mg IV Q6H. CBC shows Hg 7.5. BMP shows bicarb 31, glucose 133, Ca 8.2, albumin 2.6. General: non toxic, no distress, appears at stated age Derm: warm, dry Head: atraumatic, normocephalic, symmetric, NG tube to suction Eyes: EOMI, no lid lag, anicteric sclera Cardiovascular: S1S2 reg, no murmur Lungs: CTA bilateral, no rhonchi, no rales , no accessory muscle use Abdominal: no bowel sounds with midline surgical incision dressing c/d/i, no guarding, no appreciable organomegaly, colostomy intact Ext: no gross muscle atrophy, no edema, no contractures Neuro: no focal neuro deficits Psych: Alert, oriented, appropriate affect Ileus Acute blood loss anemia Sepsis secondary to perforated sigmoid diverticulitis with abscess formation status post exploratory laparotomy with lysis of adhesions, sigmoid colectomy, drainage of pelvic abscess CAD status post stent Hypertension Dyslipidemia Type 2 diabetes Hypothyroidism Asthma exacerbation Based on my assessment of this patient, this patient meets a high complexity level of care. Patient has an acute diagnosis of sepsis secondary to perforated sigmoid diverticulitis with abscess formation that poses a threat to life or bodily function. Ileus: As seen on KUB. NPO. Continue Reglan 10 mg IV Q6H. NG tube inserted to suction. Maintain K > 4 and Mg > 2. Acute blood loss anemia: Hg 7.5. Expected result of surgery. Transfuse if Hg < 7. Repeat CBC tomorrow morning. Sepsis secondary to perforated sigmoid diverticulitis with abscess formation: Continue Zosyn 3.375g IV Q8H. CLD and advance as tolerated. STEM CRUSHER pain pump discontinued and patient started on PRN Dilaudid. Continue LR at 125 cc/hr. Blood culture negative. Telemetry monitoring. Surgery on board. Exploratory la parotomy with lysis of adhesions, sigmoid colectomy, drainage of pelvic abscess done on 12/16. CAD status post stent: Continue ASA 81 mg PO QD. Continue Brilinta with OK with surgery. Continue Metoprolol 50 mg PO QD. Continue Crestor when OK with surgery. Hypertension: BP 120/73. Continue Metoprolol as above. Continue Hydralazine 25 mg PO BID and Lisinopril 40 mg PO QD. Type 2 diabetes: Insulin sliding scale. Accuchecks ACHS. Hypoglycemic precautions. Hypothyroidism: Continue Synthroid 100 mcg PO QD. Asthma : Albuterol inhaler PRN for SOB/wheezing. I have reviewed the following database consultant notes: I have reviewed the results of the following tests: CBC, BMP. I have ordered the following tests: CBC, BMP. I have discussed the care of this patient with the following independent historian: I have independently interpreted the following test below: KUB as above. I have discussed the management of this patient with the following physician: This patient has a high risk of morbidity due to the following reasons: Objective - Vital Signs Vital signs: Vital Signs Temp 99.2 F 12/19/22 07:16 Pulse 76 12/19/22 07:16 Resp 16 12/19/22 07:16 BP 120/73 12/19/22 07:16 Pulse Ox 95 12/19/22 07:16 FiO2 Intake & Output 12/18/22 12/19/22 12/19/22 18:59 06:59 18:59 Intake Total 500 1500 Output Total 6735 725 2970 Balance -6235 775 -2970 Intake: Intake, IV Titration 100 1500 Amount Lactated Ringers 1,000 ml 1500 @ 125 mls/hr IV .Q8H [facility] Rx#:[id number] Piperacillin-Tazobactam 3 100 .375 gm In Sodium Chloride 0.9% 100 ml @ 25 mls/hr IVPB Q8HR [facility] Rx# :[id number] Oral 400 Output: Gastric Drainage 3000 725 2350 Drainage 35 0 20 Right Abdomen 35 20 Right Anterior Abdomen 0 Urine 2200 600 Emesis 1500 Other: Voiding Method Indwelling Catheter Indwelling Catheter Indwelling Catheter # Voids 2 - Labs CBC & Chem 7: 12/19/22 10:43 12/19/22 10:43 Labs: Abnormal Lab Results - Last 24 Hours (Table) 12/18/22 12/18/22 12/19/22 Range/Units 16:42 21:04 05:53 RBC (4.30-5.90) m/uL Hgb (13.0-17.5) gm/dL Hct (39.0-53.0) % RDW (11.5-15.5) % Carbon Dioxide (22-30) mmol/L Glucose (74-99) mg/dL POC Glucose (mg/dL) 183 H 131 H 136 H (70-110) mg/dL Calcium (8.4-10.2) mg/dL Total Protein (6.3-8.2) g/dL Albumin (3.5-5.0) g/dL 12/19/22 12/19/22 12/19/22 Range/Units 10:43 10:43 11:12 RBC 2.62 L (4.30-5.90) m/uL Hgb 7.5 L D (13.0-17.5) gm/dL Hct 23.4 L (39.0-53.0) % RDW 15.6 H (11.5-15.5) % Carbon Dioxide 31 H (22-30) mmol/L Glucose 133 H (74-99) mg/dL POC Glucose (mg/dL) 146 H (70-110) mg/dL Calcium 8.2 L (8.4-10.2) mg/dL Total Protein 5.5 L (6.3-8.2) g/dL Albumin 2.6 L (3.5-5.0) g/dL Microbiology - Last 24 Hours (Table) 12/16/22 18:57 Anaerobic Culture - Preliminary Other - Other 12/16/22 18:57 Gram Stain - Preliminary Other - Other Wound Culture - Preliminary 12/16/22 18:57 Anaerobic Culture - Preliminary Other - Other 12/16/22 18:57 Gram Stain - Preliminary Other - Other
[2022-12-19] MEDS ORDERED: MVI, ADULT NO.4 WITH VIT K 10 ML, TRACE (CONC-1ML/DOSE) 1 ML in AMINO ACID 5%-D20W+LYTE... IV SCH ×3 (16:00)
[2022-12-19 16:38] LABS: Glucose,Whole Blood 137 mg/dL (70-110)
[2022-12-19 20:14] LABS: Glucose,Whole Blood 150 mg/dL (70-110)
[2022-12-20] MEDS: LORazepam 2 MG/ML INJ IV PRN ×4 (01:01→22:36)
[2022-12-20] MEDS: LACTATED RINGERS 1,000 ML IV SCH ×3 (01:02→16:14)
[2022-12-20] MEDS: HYDROmorphone 1 MG/ML 1 ML SYRINGE IVP PRN ×5 (04:07→21:02)
[2022-12-20] MEDS: METOCLOPRAMIDE 5 MG/ML 2 ML VIAL IVP SCH ×4 (05:24→23:59)
[2022-12-20 05:28] LABS: Glucose,Whole Blood 145 mg/dL (70-110)
[2022-12-20] MEDS: LEVOTHYROXINE 100 MCG TAB PO SCH (06:14)
[2022-12-20 07:42] LABS: ALT 28 U/L (4-49); AST 61 U/L (17-59); African American GFR (CKD) >90 (>60 ml/min/1.73 sqM); Albumin 2.5 g/dL (3.5-5.0); Albumin/Globulin Ratio 0.9; Alkaline Phosphatase 40 U/L (38-126); Anion Gap 4 mmol/L; Blood Urea Nitrogen 11 mg/dL (9-20); Calcium 7.9 mg/dL (8.4-10.2); Carbon Dioxide 34 mmol/L (22-30); Chloride 103 mmol/L (98-107); Globulin 2.8 g/dL; Glucose 130 mg/dL (74-99); Non-African American GFR(CKD) >90 (>60 ml/min/1.73 sqM); Phosphorus 3.8 mg/dL (2.5-4.5); Potassium 3.7 mmol/L (3.5-5.1); Sodium 141 mmol/L (137-145); Total Bilirubin 0.2 mg/dL (0.2-1.3); Total Protein 5.3 g/dL (6.3-8.2)
--- NOTE | 2022-12-20 07:48 | P.PN ---
Subjective Progress Note Date: 12/19/22 Principal diagnosis: Perforated diverticulitis and intra-abdominal abscess Patient is a 57 year male with a recent admission to the hospital with perforated diverticulitis and abscess status post laparoscopic drainage culture were negative patient received 2 weeks of IV antibiotic in the hospital subsequent discharged on oral antibiotic and presented back to the hospital with worsening abdominal pain, patient did have CT of abdominal pelvis which did shows trace peritoneal and abscess.Patient is status post exploratory laparotomy with lysis of adhesion sigmoid colectomy excision of small bowel fistula x2 and small bowel resection along with primary anastomosis procedure was completed on 12/16/2022. On today's evaluation that is 12/19/2022 the patient remains to be afebrile, the patient is breathing comfortably on the 2 L nasal cannula oxygen the patient did have NG placed yesterday for ileus still complains of abdominal discomfort no worsening of the wound output in the colostomy no chest pain or cough. Patient white count normalized to 8.4 creatinine 0.91 abdominal cultures currently pending Objective - Vital Signs Vital signs: Vital Signs Temp 98.8 F 12/19/22 20:39 Pulse 89 12/19/22 20:39 Resp 20 12/19/22 20:39 BP 125/77 12/19/22 20:39 Pulse Ox 95 12/19/22 20:39 FiO2 Intake & Output 12/19/22 12/19/22 12/20/22 06:59 18:59 06:59 Intake Total 1500 Output Total 725 5090 Balance 775 -5090 Weight 136.078 kg Intake: Intake, IV Titration 1500 Amount Lactated Ringers 1,000 ml 1500 @ 125 mls/hr IV .Q8H [facility] Rx#:[id number] Output: Gastric Drainage 725 2950 Drainage 0 40 Right Abdomen 40 Right Anterior Abdomen 0 Urine 2100 Other: Voiding Method Indwelling Catheter Indwelling Catheter - Exam GENERAL DESCRIPTION: Middle-age male lying in bed in no distress RESPIRATORY SYSTEM: Unlabored breathing , clear to auscultation anteriorly HEART: S1 S2 regular rate and rhythm , ABDOMEN: Soft , mild distention and tenderness EXTREMITIES: No edema feet - Labs CBC & Chem 7: 12/19/22 10:43 12/20/22 07:01 Labs: Abnormal Lab Results - Last 24 Hours (Table) 12/19/22 12/19/22 12/19/22 Range/Units 05:53 10:43 10:43 RBC 2.62 L (4.30-5.90) m/uL Hgb 7.5 L D (13.0-17.5) gm/dL Hct 23.4 L (39.0-53.0) % RDW 15.6 H (11.5-15.5) % Carbon Dioxide 31 H (22-30) mmol/L Glucose 133 H (74-99) mg/dL POC Glucose (mg/dL) 136 H (70-110) mg/dL Calcium 8.2 L (8.4-10.2) mg/dL Total Protein 5.5 L (6.3-8.2) g/dL Albumin 2.6 L (3.5-5.0) g/dL Triglycerides 175.00 H (0.00-149.00) mg/dL 12/19/22 12/19/22 12/19/22 Range/Units 11:12 16:37 20:13 RBC (4.30-5.90) m/uL Hgb (13.0-17.5) gm/dL Hct (39.0-53.0) % RDW (11.5-15.5) % Carbon Dioxide (22-30) mmol/L Glucose (74-99) mg/dL POC Glucose (mg/dL) 146 H 137 H 150 H (70-110) mg/dL Calcium (8.4-10.2) mg/dL Total Protein (6.3-8.2) g/dL Albumin (3.5-5.0) g/dL Triglycerides (0.00-149.00) mg/dL Microbiology - Last 24 Hours (Table) 12/16/22 18:57 Gram Stain - Final Other - Other Wound Culture - Final 12/16/22 18:57 Gram Stain - Preliminary Other - Other Wound Culture - Preliminary 12/16/22 18:57 Anaerobic Culture - Preliminary Other - Other 12/16/22 18:57 Anaerobic Culture - Preliminary Other - Other Assessment and Plan (1) Diverticulitis of intestine, part unspecified, with perforation and abscess without bleeding Current Visit: No Status: Acute Code(s): K57.80 - DVTRCLI OF INTEST, PART UNSP, W PERF AND ABSCESS W/O BLEED SNOMED Code(s): 956125290 (2) Intra-abdominal abscess Current Visit: No Status: Acute Code(s): K65.1 - PERITONEAL ABSCESS SNOMED Code(s): 03148353 Plan: 1patient with intra-abdominal abscess from perforated diverticulitis in this patient with a previous laparoscopic drainage of the abscess and cultures were negative now presented back to the hospital with worsening abdominal pain and evidence of perforation diverticulitis with intra-abdominal abscess slightly decreased in size, with a previous laparoscopic drainage culture did not grow any bacteria 2- patient is afebrile and the patient white count is normal 3- the patient did have a repeat a CT abdominal pelvis that was reviewed with the IR and cannot be drained CT-guided, Patient status post extensive surgery drainage of the abscess sigmoid colectomy resection of the small bowel fistula and primary anastomosis completed on 12/16/2022 abdominal cultures were obtained which are currently pending. 4Patient has developed postop ileus NG has been placed again, we will keep the patient on Zosyn while waiting for the culture to finalize and monitor clinical course closely Dictation was produced using [employer] dictation software. please excuse any grammatical, word or spelling errors. Time with Patient: Less than 30
[2022-12-20] MEDS: INSULIN ASPART (NovoLOG) 100 UNIT/ML VIAL SQ SCH ×5 (08:04→23:59)
[2022-12-20] MEDS: PANTOPRAZOLE 40 MG/10 ML VIAL IV SCH (08:05)
[2022-12-20] MEDS: PIPERACILLIN-TAZOBACTAM 3.375 GM in SODIUM CHLORIDE 0.9% 100 ML IVPB SCH ×3 (08:06→21:03)
[2022-12-20] MEDS: GABAPENTIN 300 MG CAP PO SCH ×3 (08:11→23:09)
[2022-12-20] MEDS: ASPIRIN 81 MG PO SCH (08:11)
[2022-12-20] MEDS: lisinopriL 20 MG TAB PO SCH (08:12)
[2022-12-20] MEDS: hydrALAZINE HCL 25 MG TAB PO SCH ×2 (08:12→23:09)
[2022-12-20] MEDS: HEPARIN SODIUM,PORCINE 5,000 UNIT/ML 1 ML VIAL SQ SCH ×2 (08:12→23:08)
[2022-12-20] MEDS: METOPROLOL SUCCINATE (ER) 50 MG TAB.ER.24H PO SCH (08:12)
[2022-12-20] MEDS: FAT EMULSION 20% 250 ML IV SCH (08:18)
[2022-12-20 11:25] LABS: Glucose,Whole Blood 161 mg/dL (70-110)
[2022-12-20 11:36] LABS: Basophils # (A) 0.07 X 10*3/uL (0.00-0.10); Basophils % (A) 1.2 %; Eosinophils # (A) 0.24 X 10*3/uL (0.04-0.35); HGB 6.5 d/dL (13.0-17.0); Hypochromasia (M) 2+; Lymphocytes % (A) 28.6 %; MCH 27.7 pg (27.0-32.0); MCV 89.4 FL (80.0-97.0); Mean Platelet Volume 9.7 FL (9.5-12.2); Monocytes % (A) 11.8 %; NRBC Per 100 WBC 0 X 10*3/uL (0.00-0.01); Neutrophils # (A) 3.22 X 10*3/uL (1.80-7.70); Neutrophils % (A) 54.1 %; Platelet Count 366 X 10*3/uL (140-440); RBC 2.35 X 10*6/uL (4.40-5.60); RDW 15.5 % (11.5-14.5); WBC 5.95 X 10*3/uL (4.50-10.00)
[2022-12-20] MEDS: ACETAMINOPHEN IV (For NPO) 1,000 MG in EMPTY BAG 1 BAG IVPB SCH ×2 (12:36→18:41)
[2022-12-20] MEDS ORDERED: POTASSIUM CHLORIDE 20 MEQ in WATER FOR INJECTION 1 100ML.BAG IVPB ONE (13:00)
--- NOTE | 2022-12-20 14:11 | P.PN ---
Subjective Progress Note Date: 12/20/22 Subjective: Seen and examined at bedside. No acute events overnight. Patient did have significant vomiting yesterday, NG tube placed. Also has a Rick catheter in place. No significant output from ostomy. Pertinent positives and negatives as discussed above, a complete review of s ystems was performed and all other systems are negative. Vitals Signs Reviewed. General: non toxic, no distress, appears at stated age Derm: warm, dry Head: atraumatic, normocephalic, symmetric, NG tube to suction Eyes: EOMI, no lid lag, anicteric sclera Cardiovascular: S1S2 reg, no murmur Lungs: CTA bilateral, no rhonchi, no rales , no accessory muscle use Abdominal: no bowel sounds with midline surgical incision dressing c/d/i, no guarding, no appreciable organomegaly, colostomy intact Ext: no gross muscle atrophy, no edema, no contractures Neuro: no focal neuro deficits Psych: Alert, oriented, appropriate affect Data Reviewed Today: Pertinent Labs: Hemoglobin 6.5, sodium 141, potassium 3.7, bicarb 34, creatinine 0.74, blood sugars range between 130 to 161. Imaging: No new imaging Assessment and Plan: Acute blood loss anemia Ileus Sepsis secondary to perforated sigmoid diverticulitis with abscess formation status post exploratory laparotomy with lysis of adhesions, sigmoid colectomy, drainage of pelvic abscess CAD status post stent Hypertension Dyslipidemia Type 2 diabetes Hypothyroidism Asthma exacerbation, resolved -1 unit of pRBCs ordered -Repeat CBC tomorrow -Continue IV pantoprazole -NG tube to suction, being management per surgery -Patient remains on TPN -ID also following -Currently on Zosyn IV -Home medications reviewed, no changes -Continue sliding scale insulin, change to q6h as patient is nothing by mouth Thank you for allowing us to participate in the care of this pleasant patient. Do not hesitate to contact us with questions. Someone can be reached from the [facility] hospitalist group all hours of the day at [phone] or via [employer]. Objective - Vital Signs Vital signs: Vital Signs Temp 98.9 F 12/20/22 13:50 Pulse 79 12/20/22 13:50 Resp 17 12/20/22 13:50 BP 130/75 12/20/22 13:50 Pulse Ox 97 12/20/22 13:50 FiO2 Intake & Output 12/19/22 12/20/22 12/20/22 18:59 06:59 18:59 Intake Total 436.167 57.5 Output Total 5090 3220 Balance -5090 -2783.833 57.5 Weight 136.078 kg Intake: Intake, IV Titration 436.167 57.5 Amount Mvi, Adult No.4 with Vit 436.167 57.5 K 10 ml Trace (Conc-1Ml/ Dose) 1 ml In Amino Acid 5%-D20w+Lytes*E* 1,000 ml @ 30 mls/hr IV .Q24H [facility] Rx#:[id number] Output: Gastric Drainage 2950 1750 Drainage 40 20 Right Abdomen 40 20 Urine 2100 1450 Other: Voiding Method Indwelling Catheter Indwelling Catheter # Voids 0 - Labs CBC & Chem 7: 12/20/22 07:01 12/20/22 07:01 Labs: Abnormal Lab Results - Last 24 Hours (Table) 12/19/22 12/19/22 12/19/22 Range/Units 10:43 16:37 20:13 RBC (4.40-5.60) X 10*6/uL Hgb (13.0-17.0) d/dL Hct (39.6-50.0) % MCHC (32.0-37.0) d/dL RDW (11.5-14.5) % Hypochromasia (manual) Carbon Dioxide (22-30) mmol/L Glucose (74-99) mg/dL POC Glucose (mg/dL) 137 H 150 H (70-110) mg/dL Calcium (8.4-10.2) mg/dL AST (17-59) U/L Total Protein (6.3-8.2) g/dL Albumin (3.5-5.0) g/dL Triglycerides 175.00 H (0.00-149.00) mg/dL Crossmatch 12/20/22 12/20/22 12/20/22 Range/Units 05:27 07:01 07:01 RBC 2.35 L (4.40-5.60) X 10*6/uL Hgb 6.5 H* (13.0-17.0) d/dL Hct 21.0 L (39.6-50.0) % MCHC 31.0 L (32.0-37.0) d/dL RDW 15.5 H (11.5-14.5) % Hypochromasia (manual) 2+ A Carbon Dioxide 34 H (22-30) mmol/L Glucose 130 H (74-99) mg/dL POC Glucose (mg/dL) 145 H (70-110) mg/dL Calcium 7.9 L (8.4-10.2) mg/dL AST 61 H (17-59) U/L Total Protein 5.3 L (6.3-8.2) g/dL Albumin 2.5 L (3.5-5.0) g/dL Triglycerides (0.00-149.00) mg/dL Crossmatch 12/20/22 12/20/22 Range/Units 11:23 12:52 RBC (4.40-5.60) X 10*6/uL Hgb (13.0-17.0) d/dL Hct (39.6-50.0) % MCHC (32.0-37.0) d/dL RDW (11.5-14.5) % Hypochromasia (manual) Carbon Dioxide (22-30) mmol/L Glucose (74-99) mg/dL POC Glucose (mg/dL) 161 H (70-110) mg/dL Calcium (8.4-10.2) mg/dL AST (17-59) U/L Total Protein (6.3-8.2) g/dL Albumin (3.5-5.0) g/dL Triglycerides (0.00-149.00) mg/dL Crossmatch See Detail Microbiology - Last 24 Hours (Table) 12/16/22 18:57 Gram Stain - Final Other - Other Wound Culture - Final 12/16/22 18:57 Gram Stain - Preliminary Other - Other Wound Culture - Preliminary
--- NOTE | 2022-12-20 15:42 | P.PN ---
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 Over the weekend, patient developed emesis from ileus. Nasogastric tube placed. Patient is on TPN for nutrition support. NG tube output is more bilious today. He had about 2000 and output through the night. He is still requiring the IV Dilaudid for pain. Also receiving IV Ativan for anxiety. SUSAN drain serosanguineous output. Afebrile. Hemoglobin is down to 6.5. Patient did not receive subcu heparin this AM PHYSICAL EXAM: VITAL SIGNS: Reviewed GENERAL: Well-developed in no acute distress. HEENT: No sclera icterus. Extraocular movements grossly intact. Moist buccal mucosa. Head is atraumatic, normocephalic. Hears conversational speech. No nasal drainage. NECK: Supple without lymphadenopathy. CHEST: Non-labored respirations and equal bilateral excursions. CARDIOVASCULAR: Palpable 2+ radial pulses. ABDOMEN: Soft. Nondistended. Ostomy with blood. Incision wound VAC intact. MUSCULOSKELETAL: No clubbing or cyanosis. NEUROLOGIC: No focal or lateralizing signs. Cranial nerves II through XII grossly intact. PSYCH: Appropriate affect. Alert and oriented to person, place and time. SKIN: Well perfused. Good skin turgor. ASSESSMENT: 1. Perforated diverticulitis with abscess and phlegmon 2. Morbid obesity due to excess calories 3. Hypokalemia 4. Small bowel fistula status post resection 5. Postoperative Ileus expected outcome following surgery PLAN: -Patient receiving 1 unit of blood for hemoglobin of 6.5 -Continue antibiotics -Encourage patient to increase activity level -Continue NG tube for decompression for ileus -Encourage patient to ambulate -Encourage patient to use incentive spirometer -Continue TPN for nutrition support -IV Tylenol added for pain control -Discontinue Rick catheter Physician Supervisor Incising note has been reviewed by physician. Signing provider agrees with the documented findings, assessment, and plan of care. Objective - Vital Signs Vital signs: Vital Signs Temp 98.6 F 12/20/22 07:08 Pulse 82 12/20/22 07:08 Resp 16 08/22/23 07:08 BP 123/74 12/20/22 07:08 Pulse Ox 95 12/20/22 08:33 FiO2 Intake & Output 12/19/22 12/20/22 12/20/22 18:59 06:59 18:59 Intake Total 436.167 57.5 Output Total 5090 3220 Balance -5090 -2783.833 57.5 Weight 136.078 kg Intake: Intake, IV Titration 436.167 57.5 Amount Mvi, Adult No.4 with Vit 436.167 57.5 K 10 ml Trace (Conc-1Ml/ Dose) 1 ml In Amino Acid 5%-D20w+Lytes*E* 1,000 ml @ 30 mls/hr IV .Q24H [facility] Rx#:[id number] Output: Gastric Drainage 2950 1750 Drainage 40 20 Right Abdomen 40 20 Urine 2100 1450 Other: Voiding Method Indwelling Catheter Indwelling Catheter # Voids 0 - Labs CBC & Chem 7: 12/20/22 07:01 12/20/22 07:01 Labs: Abnormal Lab Results - Last 24 Hours (Table) 12/19/22 12/19/22 12/19/22 Range/Units 10:43 16:37 20:13 RBC (4.40-5.60) X 10*6/uL Hgb (13.0-17.0) d/dL Hct (39.6-50.0) % MCHC (32.0-37.0) d/dL RDW (11.5-14.5) % Hypochromasia (manual) Carbon Dioxide 31 H (22-30) mmol/L Glucose 133 H (74-99) mg/dL POC Glucose (mg/dL) 137 H 150 H (70-110) mg/dL Calcium 8.2 L (8.4-10.2) mg/dL AST (17-59) U/L Total Protein 5.5 L (6.3-8.2) g/dL Albumin 2.6 L (3.5-5.0) g/dL Triglycerides 175.00 H (0.00-149.00) mg/dL 12/20/22 12/20/22 12/20/22 Range/Units 05:27 07:01 07:01 RBC 2.35 L (4.40-5.60) X 10*6/uL Hgb 6.5 H* (13.0-17.0) d/dL Hct 21.0 L (39.6-50.0) % MCHC 31.0 L (32.0-37.0) d/dL RDW 15.5 H (11.5-14.5) % Hypochromasia (manual) 2+ A Carbon Dioxide 34 H (22-30) mmol/L Glucose 130 H (74-99) mg/dL POC Glucose (mg/dL) 145 H (70-110) mg/dL Calcium 7.9 L (8.4-10.2) mg/dL AST 61 H (17-59) U/L Total Protein 5.3 L (6.3-8.2) g/dL Albumin 2.5 L (3.5-5.0) g/dL Triglycerides (0.00-149.00) mg/dL 12/20/22 Range/Units 11:23 RBC (4.40-5.60) X 10*6/uL Hgb (13.0-17.0) d/dL Hct (39.6-50.0) % MCHC (32.0-37.0) d/dL RDW (11.5-14.5) % Hypochromasia (manual) Carbon Dioxide (22-30) mmol/L Glucose (74-99) mg/dL POC Glucose (mg/dL) 161 H (70-110) mg/dL Calcium (8.4-10.2) mg/dL AST (17-59) U/L Total Protein (6.3-8.2) g/dL Albumin (3.5-5.0) g/dL Triglycerides (0.00-149.00) mg/dL Microbiology - Last 24 Hours (Table) 12/16/22 18:57 Gram Stain - Final Other - Other Wound Culture - Final 12/16/22 18:57 Gram Stain - Preliminary Other - Other Wound Culture - Preliminary
--- NOTE | 2022-12-20 16:11 | P.PN ---
Subjective Progress Note Date: 12/20/22 Principal diagnosis: Perforated diverticulitis and intra-abdominal abscess Patient is a 57 year male with a recent admission to the hospital with perforated diverticulitis and abscess status post laparoscopic drainage culture were negative patient received 2 weeks of IV antibiotic in the hospital subsequent discharged on oral antibiotic and presented back to the hospital with worsening abdominal pain, patient did have CT of abdominal pelvis which did shows trace peritoneal and abscess.Patient is status post exploratory laparotomy with lysis of adhesion sigmoid colectomy excision of small bowel fistula x2 and small bowel resection along with primary anastomosis procedure was completed on 12/16/2022. On today's evaluation that is 12/20/2022 the patient continues to be afebrile, the patient is breathing comfortably on the 2 L nasal cannula oxygen the patient did have NG because of ileus patient denies any worsening abdominal discomfort no further vomiting and did not have any output in the colostomy no chest pain or cough. Patient white count is 5.95 creatinine is 0.74 abdominal cultures currently pending Objective - Vital Signs Vital signs: Vital Signs Temp 98.6 F 12/20/22 07:08 Pulse 82 12/20/22 07:08 Resp 16 12/20/22 07:08 BP 123/74 12/20/22 07:08 Pulse Ox 95 12/20/22 08:33 FiO2 Intake & Output 12/19/22 12/20/22 12/20/22 18:59 06:59 18:59 Intake Total 436.167 57.5 Output Total 5090 3220 Balance -5090 -2783.833 57.5 Weight 136.078 kg Intake: Intake, IV Titration 436.167 57.5 Amount Mvi, Adult No.4 with Vit 436.167 57.5 K 10 ml Trace (Conc-1Ml/ Dose) 1 ml In Amino Acid 5%-D20w+Lytes*E* 1,000 ml @ 30 mls/hr IV .Q24H [facility] Rx#:[id number] Output: Gastric Drainage 2950 1750 Drainage 40 20 Right Abdomen 40 20 Urine 2100 1450 Other: Voiding Method Indwelling Catheter Indwelling Catheter # Voids 0 - Exam GENERAL DESCRIPTION: Middle-age male lying in bed in no distress RESPIRATORY SYSTEM: Unlabored breathing , clear to auscultation anteriorly HEART: S1 S2 regular rate and rhythm , ABDOMEN: Soft , mild distention and tenderness EXTREMITIES: No edema feet - Labs CBC & Chem 7: 12/20/22 07:01 12/20/22 07:01 Labs: Abnormal Lab Results - Last 24 Hours (Table) 12/19/22 12/19/22 12/19/22 Range/Units 10:43 16:37 20:13 RBC (4.40-5.60) X 10*6/uL Hgb (13.0-17.0) d/dL Hct (39.6-50.0) % MCHC (32.0-37.0) d/dL RDW (11.5-14.5) % Hypochromasia (manual) Carbon Dioxide 31 H (22-30) mmol/L Glucose 133 H (74-99) mg/dL POC Glucose (mg/dL) 137 H 150 H (70-110) mg/dL Calcium 8.2 L (8.4-10.2) mg/dL AST (17-59) U/L Total Protein 5.5 L (6.3-8.2) g/dL Albumin 2.6 L (3.5-5.0) g/dL Triglycerides 175.00 H (0.00-149.00) mg/dL 12/20/22 12/20/22 12/20/22 Range/Units 05:27 07:01 07:01 RBC 2.35 L (4.40-5.60) X 10*6/uL Hgb 6.5 H* (13.0-17.0) d/dL Hct 21.0 L (39.6-50.0) % MCHC 31.0 L (32.0-37.0) d/dL RDW 15.5 H (11.5-14.5) % Hypochromasia (manual) 2+ A Carbon Dioxide 34 H (22-30) mmol/L Glucose 130 H (74-99) mg/dL POC Glucose (mg/dL) 145 H (70-110) mg/dL Calcium 7.9 L (8.4-10.2) mg/dL AST 61 H (17-59) U/L Total Protein 5.3 L (6.3-8.2) g/dL Albumin 2.5 L (3.5-5.0) g/dL Triglycerides (0.00-149.00) mg/dL 12/20/22 Range/Units 11:23 RBC (4.40-5.60) X 10*6/uL Hgb (13.0-17.0) d/dL Hct (39.6-50.0) % MCHC (32.0-37.0) d/dL RDW (11.5-14.5) % Hypochromasia (manual) Carbon Dioxide (22-30) mmol/L Glucose (74-99) mg/dL POC Glucose (mg/dL) 161 H (70-110) mg/dL Calcium (8.4-10.2) mg/dL AST (17-59) U/L Total Protein (6.3-8.2) g/dL Albumin (3.5-5.0) g/dL Triglycerides (0.00-149.00) mg/dL Microbiology - Last 24 Hours (Table) 12/16/22 18:57 Gram Stain - Final Other - Other Wound Culture - Final 12/16/22 18:57 Gram Stain - Preliminary Other - Other Wound Culture - Preliminary Assessment and Plan (1) Diverticulitis of intestine, part unspecified, with perforation and abscess without bleeding Current Visit: No Status: Acute Code(s): K57.80 - DVTRCLI OF INTEST, PART UNSP, W PERF AND ABSCESS W/O BLEED SNOMED Code(s): 170563686 (2) Intra-abdominal abscess Current Visit: No Status: Acute Code(s): K65.1 - PERITONEAL ABSCESS SNOMED Code(s): 43894540 Plan: 1patient with intra-abdominal abscess from perforated diverticulitis in this patient with a previous laparoscopic drainage of the abscess and cultures were negative now presented back to the hospital with worsening abdominal pain and evidence of perforation diverticulitis with intra-abdominal abscess slightly decreased in size, with a previous laparoscopic drainage culture did not grow any bacteria 2- patient is afebrile and the patient white count is normal 3- the patient did have a repeat a CT abdominal pelvis that was reviewed with the IR and cannot be drained CT-guided, Patient status post extensive surgery drainage of the abscess sigmoid colectomy resection of the small bowel fistula and primary anastomosis completed on 12/16/2022 abdominal cultures were obtained which are currently pending. 4Patient has developed postop ileus NG has been placed again, patient abdominal cultures so far negative the patient white count is normal continue the Zosyn and monitor clinical course closely Dictation was produced using [employer] dictation software. please excuse any grammatical, word or spelling errors. Time with Patient: Less than 30
[2022-12-20] MEDS: 1: MVI, ADULT NO.4 WITH VIT K 10 ML, TRACE (CONC-1ML/DOSE) 1 ML in AMINO ACID 5%-D20W+LY IV SCH ×3 (16:21)
[2022-12-20 16:36] LABS: Glucose,Whole Blood 125 mg/dL (70-110)
[2022-12-20 19:57] LABS: Glucose,Whole Blood 125 mg/dL (70-110)
[2022-12-20 23:53] LABS: Glucose,Whole Blood 155 mg/dL (70-110)
[2022-12-21] MEDS ORDERED: PIPERACILLIN-TAZOBACTAM 3.375 GM in SODIUM CHLORIDE 0.9% 100 ML IVPB SCH ×2
[2022-12-21] MEDS: ACETAMINOPHEN IV (For NPO) 1,000 MG in EMPTY BAG 1 BAG IVPB SCH ×2 (02:12→09:24)
[2022-12-21] MEDS: LORazepam 2 MG/ML INJ IV PRN ×4 (02:13→20:55)
[2022-12-21] MEDS: LACTATED RINGERS 1,000 ML IV SCH ×4 (03:05→23:09)
[2022-12-21] MEDS: HYDROmorphone 1 MG/ML 1 ML SYRINGE IVP PRN ×8 (03:40→23:08)
[2022-12-21] MEDS: PIPERACILLIN-TAZOBACTAM 3.375 GM in SODIUM CHLORIDE 0.9% 100 ML IVPB SCH ×3 (03:40→20:54)
[2022-12-21 05:14] LABS: Glucose,Whole Blood 133 mg/dL (70-110)
[2022-12-21] MEDS: METOCLOPRAMIDE 5 MG/ML 2 ML VIAL IVP SCH ×4 (05:59→23:08)
[2022-12-21] MEDS: INSULIN ASPART (NovoLOG) 100 UNIT/ML VIAL SQ SCH ×4 (06:00→23:07)
[2022-12-21] MEDS: LEVOTHYROXINE 100 MCG TAB PO SCH ×2 (06:00→06:02)
[2022-12-21] MEDS: 1: MVI, ADULT NO.4 WITH VIT K 10 ML, TRACE (CONC-1ML/DOSE) 1 ML in AMINO ACID 5%-D20W+LY IV SCH ×6 (06:33→20:21)
[2022-12-21 07:47] LABS: ALT 55 U/L (4-49); AST 90 U/L (17-59); African American GFR (CKD) >90 (>60 ml/min/1.73 sqM); Albumin 2.6 g/dL (3.5-5.0); Albumin/Globulin Ratio 0.9; Alkaline Phosphatase 49 U/L (38-126); Anion Gap 6 mmol/L; Blood Urea Nitrogen 9 mg/dL (9-20); Calcium 7.9 mg/dL (8.4-10.2); Carbon Dioxide 29 mmol/L (22-30); Chloride 104 mmol/L (98-107); Globulin 2.8 g/dL; Glucose 116 mg/dL (74-99); Magnesium 1.9 mg/dL (1.6-2.3); Non-African American GFR(CKD) >90 (>60 ml/min/1.73 sqM); Potassium 3.7 mmol/L (3.5-5.1); Sodium 139 mmol/L (137-145); Total Bilirubin 0.4 mg/dL (0.2-1.3); Total Protein 5.4 g/dL (6.3-8.2)
[2022-12-21] MEDS: METOPROLOL SUCCINATE (ER) 50 MG TAB.ER.24H PO SCH (09:24)
[2022-12-21] MEDS: HEPARIN SODIUM,PORCINE 5,000 UNIT/ML 1 ML VIAL SQ SCH ×2 (09:24→09:39)
[2022-12-21] MEDS: lisinopriL 20 MG TAB PO SCH (09:24)
[2022-12-21] MEDS: hydrALAZINE HCL 25 MG TAB PO SCH ×2 (09:24→20:55)
[2022-12-21] MEDS: ASPIRIN 81 MG PO SCH ×2 (09:24→09:32)
[2022-12-21] MEDS: GABAPENTIN 300 MG CAP PO SCH ×4 (09:24→20:55)
[2022-12-21] MEDS: PANTOPRAZOLE 40 MG/10 ML VIAL IV SCH (09:36)
[2022-12-21 10:52] LABS: Basophils # (A) 0.06 X 10*3/uL (0.00-0.10); Basophils % (A) 1.1 %; Eosinophils # (A) 0.31 X 10*3/uL (0.04-0.35); Eosinophils % (A) 5.6 %; HCT 24.2 % (39.6-50.0); HGB 7.5 d/dL (13.0-17.0); Lymphocytes # (A) 1.59 X 10*3/uL (0.90-5.00); Lymphocytes % (A) 28.9 %; MCH 27.6 pg (27.0-32.0); Mean Platelet Volume 9.8 FL (9.5-12.2); Monocytes # (A) 0.83 X 10*3/uL (0.20-1.00); Monocytes % (A) 15.1 %; NRBC Per 100 WBC 0 X 10*3/uL (0.00-0.01); Neutrophils # (A) 2.66 X 10*3/uL (1.80-7.70); Neutrophils % (A) 48.4 %; Platelet Count 348 X 10*3/uL (140-440); RBC 2.72 X 10*6/uL (4.40-5.60)
--- NOTE | 2022-12-21 12:58 | P.PN ---
Subjective Progress Note Date: 12/21/22 Subjective: Seen and examined at bedside. No acute events overnight. Rick taken out. NG still in place. Pertinent positives and negatives as discussed above, a complete review of sy stems was performed and all other systems are negative. Vitals Signs Reviewed. General: non toxic, no distress, appears at stated age Derm: warm, dry Head: atraumatic, normocephalic, symmetric, NG tube to suction Eyes: EOMI, no lid lag, anicteric sclera Cardiovascular: S1S2 reg, no murmur Lungs: CTA bilateral, no rhonchi, no rales , no accessory muscle use Abdominal: no bowel sounds with midline surgical incision dressing c/d/i, no guarding, no appreciable organomegaly, colostomy intact Ext: no gross muscle atrophy, no edema, no contractures Neuro: no focal neuro deficits Psych: Alert, oriented, appropriate affect Data Reviewed Today: Pertinent Labs: Hemoglobin 7.5, potassium 3.7, creatinine 0.64, blood sugars range between 116-155 Imaging: No new imaging Assessment and Plan: Acute blood loss anemia, hemoglobin stable Ileus Sepsis secondary to perforated sigmoid diverticulitis with abscess formation status post exploratory laparotomy with lysis of adhesions, sigmoid colectomy, drainage of pelvic abscess CAD status post stent Hypertension Dyslipidemia Type 2 diabetes Hypothyroidism Asthma exacerbation, resolved -Continue IV pantoprazole -NG tube to suction, being management per surgery -Patient remains on TPN -ID also following -Currently on Zosyn IV -Home medications reviewed, no changes -Continue sliding scale insulin, q6h as patient is nothing by mouth Thank you for allowing us to participate in the care of this pleasant patient. Do not hesitate to contact us with questions. Someone can be reached from the [facility] hospitalist group all hours of the day at [phone] or via [employer]. Objective - Vital Signs Vital signs: Vital Signs Temp 98.1 F 12/21/22 08:00 Pulse 77 12/21/22 08:00 Resp 19 12/21/22 08:00 BP 154/92 12/21/22 08:00 Pulse Ox 97 12/21/22 08:38 FiO2 21 12/21/22 08:38 Intake & Output 12/20/22 12/21/22 12/21/22 18:59 06:59 18:59 Intake Total 367.5 Output Total 1170 1590 Balance -802.5 -1590 Intake: Intake, IV Titration 57.5 Amount Mvi, Adult No.4 with Vit 57.5 K 10 ml Trace (Conc-1Ml/ Dose) 1 ml In Amino Acid 5%-D20w+Lytes*E* 1,000 ml @ 30 mls/hr IV .Q24H [facility] Rx#:[id number] Blood Product 310 Rc As-1 Unit 310 [id number] Output: Gastric Drainage 200 200 Drainage 20 90 Right Abdomen 20 90 Urine 950 1300 Other: Voiding Method Indwelling Catheter Indwelling Catheter Urinal - Labs CBC & Chem 7: 12/21/22 07:02 12/21/22 07:02 Labs: Abnormal Lab Results - Last 24 Hours (Table) 12/20/22 12/20/22 12/20/22 Range/Units 12:52 16:34 19:56 RBC (4.40-5.60) X 10*6/uL Hgb (13.0-17.0) d/dL Hct (39.6-50.0) % MCHC (32.0-37.0) d/dL RDW (11.5-14.5) % Creatinine (0.66-1.25) mg/dL Glucose (74-99) mg/dL POC Glucose (mg/dL) 125 H 125 H (70-110) mg/dL Calcium (8.4-10.2) mg/dL AST (17-59) U/L ALT (4-49) U/L Total Protein (6.3-8.2) g/dL Albumin (3.5-5.0) g/dL Crossmatch See Detail 12/20/22 12/21/22 12/21/22 Range/Units 23:52 05:12 07:02 RBC (4.40-5.60) X 10*6/uL Hgb (13.0-17.0) d/dL Hct (39.6-50.0) % MCHC (32.0-37.0) d/dL RDW (11.5-14.5) % Creatinine 0.64 L (0.66-1.25) mg/dL Glucose 116 H (74-99) mg/dL POC Glucose (mg/dL) 155 H 133 H (70-110) mg/dL Calcium 7.9 L (8.4-10.2) mg/dL AST 90 H (17-59) U/L ALT 55 H (4-49) U/L Total Protein 5.4 L (6.3-8.2) g/dL Albumin 2.6 L (3.5-5.0) g/dL Crossmatch 12/21/22 Range/Units 07:02 RBC 2.72 L (4.40-5.60) X 10*6/uL Hgb 7.5 L (13.0-17.0) d/dL Hct 24.2 L (39.6-50.0) % MCHC 31.0 L (32.0-37.0) d/dL RDW 15.0 H (11.5-14.5) % Creatinine (0.66-1.25) mg/dL Glucose (74-99) mg/dL POC Glucose (mg/dL) (70-110) mg/dL Calcium (8.4-10.2) mg/dL AST (17-59) U/L ALT (4-49) U/L Total Protein (6.3-8.2) g/dL Albumin (3.5-5.0) g/dL Crossmatch Microbiology - Last 24 Hours (Table) 12/16/22 18:57 Anaerobic Culture - Final Other - Other 12/16/22 18:57 Anaerobic Culture - Final Other - Other 12/16/22 18:57 Gram Stain - Final Other - Other Wound Culture - Final
[2022-12-21 13:11] LABS: Glucose,Whole Blood 133 mg/dL (70-110)
--- NOTE | 2022-12-21 16:23 | P.PN ---
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 Over the weekend, patient developed emesis from ileus. Nasogastric tube placed. Patient is on TPN for nutrition support. Patient having flatus in his colostomy bag. Does Report abdominal pain. NG tube with 200 mL of bilious output. SUSAN drain 90 mL serosanguineous output. Rick catheter removed yesterday. WBC 5.5 Hgb 6.5-7.5 after 1 unit of blood PHYSICAL EXAM: VITAL SIGNS: Reviewed GENERAL: Well-developed in no acute distress. HEENT: No sclera icterus. Extraocular movements grossly intact. Moist buccal mucosa. Head is atraumatic, normocephalic. Hears conversational speech. No nasal drainage. NECK: Supple without lymphadenopathy. CHEST: Non-labored respirations and equal bilateral excursions. CARDIOVASCULAR: Palpable 2+ radial pulses. ABDOMEN: Soft. Nondistended. Ostomy with blood. Incision Prevana wound VAC intact. MUSCULOSKELETAL: No clubbing or cyanosis. NEUROLOGIC: No focal or lateralizing signs. Cranial nerves II through XII grossly intact. PSYCH: Appropriate affect. Alert and oriented to person, place and time. SKIN: Well perfused. Good skin turgor. ASSESSMENT: 1. Perforated diverticulitis with abscess and phlegmon 2. Morbid obesity due to excess calories 3. Hypokalemia 4. Small bowel fistula status post resection 5. Postoperative Ileus expected outcome following surgery 6. Acute blood loss anemia PLAN: -Discontinue NG tube -Start clear liquid diet -Continue pain management. Scheduled oral Tylenol ordered -Continue antibiotics -Encourage patient to increase activity level -Encourage patient to ambulate -Encourage patient to use incentive spirometer -Continue TPN for nutrition support -Subcu heparin discontinued due to anemia and bleeding from ostomy Physician Project Planner note has been reviewed by physician. Signing provider agrees with the documented findings, assessment, and plan of care. Objective - Vital Signs Vital signs: Vital Signs Temp 98.1 F 12/21/22 08:00 Pulse 77 12/21/22 08:00 Resp 19 12/21/22 08:00 BP 154/92 12/21/22 08:00 Pulse Ox 97 12/21/22 08:38 FiO2 21 12/21/22 08:38 Intake & Output 12/20/22 12/21/22 12/21/22 18:59 06:59 18:59 Intake Total 367.5 Output Total 1170 1590 Balance -802.5 -1590 Intake: Intake, IV Titration 57.5 Amount Mvi, Adult No.4 with Vit 57.5 K 10 ml Trace (Conc-1Ml/ Dose) 1 ml In Amino Acid 5%-D20w+Lytes*E* 1,000 ml @ 30 mls/hr IV .Q24H [facility] Rx#:[id number] Blood Product 310 Rc As-1 Unit 310 [id number] Output: Gastric Drainage 200 200 Drainage 20 90 Right Abdomen 20 90 Urine 950 1300 Other: Voiding Method Indwelling Catheter Indwelling Catheter Urinal - Labs CBC & Chem 7: 12/21/22 07:02 12/21/22 07:02 Labs: Abnormal Lab Results - Last 24 Hours (Table) 12/20/22 12/20/22 12/20/22 Range/Units 07:01 11:23 12:52 RBC 2.35 L (4.40-5.60) X 10*6/uL Hgb 6.5 H* (13.0-17.0) d/dL Hct 21.0 L (39.6-50.0) % MCHC 31.0 L (32.0-37.0) d/dL RDW 15.5 H (11.5-14.5) % Hypochromasia (manual) 2+ A Creatinine (0.66-1.25) mg/dL Glucose (74-99) mg/dL POC Glucose (mg/dL) 161 H (70-110) mg/dL Calcium (8.4-10.2) mg/dL AST (17-59) U/L ALT (4-49) U/L Total Protein (6.3-8.2) g/dL Albumin (3.5-5.0) g/dL Crossmatch See Detail 12/20/22 12/20/22 12/20/22 Range/Units 16:34 19:56 23:52 RBC (4.40-5.60) X 10*6/uL Hgb (13.0-17.0) d/dL Hct (39.6-50.0) % MCHC (32.0-37.0) d/dL RDW (11.5-14.5) % Hypochromasia (manual) Creatinine (0.66-1.25) mg/dL Glucose (74-99) mg/dL POC Glucose (mg/dL) 125 H 125 H 155 H (70-110) mg/dL Calcium (8.4-10.2) mg/dL AST (17-59) U/L ALT (4-49) U/L Total Protein (6.3-8.2) g/dL Albumin (3.5-5.0) g/dL Crossmatch 12/21/22 12/21/22 12/21/22 Range/Units 05:12 07:02 07:02 RBC 2.72 L (4.40-5.60) X 10*6/uL Hgb 7.5 L (13.0-17.0) d/dL Hct 24.2 L (39.6-50.0) % MCHC 31.0 L (32.0-37.0) d/dL RDW 15.0 H (11.5-14.5) % Hypochromasia (manual) Creatinine 0.64 L (0.66-1.25) mg/dL Glucose 116 H (74-99) mg/dL POC Glucose (mg/dL) 133 H (70-110) mg/dL Calcium 7.9 L (8.4-10.2) mg/dL AST 90 H (17-59) U/L ALT 55 H (4-49) U/L Total Protein 5.4 L (6.3-8.2) g/dL Albumin 2.6 L (3.5-5.0) g/dL Crossmatch Microbiology - Last 24 Hours (Table) 12/16/22 18:57 Anaerobic Culture - Final Other - Other 12/16/22 18:57 Anaerobic Culture - Final Other - Other 12/16/22 18:57 Gram Stain - Final Other - Other Wound Culture - Final
[2022-12-21] MEDS: ACETAMINOPHEN TAB 500 MG TAB PO SCH ×2 (18:06→23:08)
[2022-12-21 18:30] LABS: Glucose,Whole Blood 148 mg/dL (70-110)
[2022-12-21] MEDS ORDERED: HYDROmorphone 0.5 MG/0.5 ML SYRINGE IVP STA (19:04)
[2022-12-21 20:44] LABS: Glucose,Whole Blood 144 mg/dL (70-110)
[2022-12-22] MEDS: HYDROmorphone 1 MG/ML 1 ML SYRINGE IVP PRN ×7 (02:13→21:19)
[2022-12-22] MEDS: LORazepam 2 MG/ML INJ IV PRN ×3 (03:28→22:38)
[2022-12-22] MEDS: PIPERACILLIN-TAZOBACTAM 3.375 GM in SODIUM CHLORIDE 0.9% 100 ML IVPB SCH ×3 (03:39→20:13)
[2022-12-22] MEDS: LEVOTHYROXINE 100 MCG TAB PO SCH (05:38)
[2022-12-22] MEDS: METOCLOPRAMIDE 5 MG/ML 2 ML VIAL IVP SCH ×3 (05:38→18:10)
[2022-12-22] MEDS: ACETAMINOPHEN TAB 500 MG TAB PO SCH ×4 (05:38→22:37)
[2022-12-22 06:00] LABS: Glucose,Whole Blood 145 mg/dL (70-110)
[2022-12-22] MEDS: INSULIN ASPART (NovoLOG) 100 UNIT/ML VIAL SQ SCH ×3 (06:09→17:22)
[2022-12-22] MEDS: PANTOPRAZOLE 40 MG/10 ML VIAL IV SCH (08:41)
[2022-12-22] MEDS: lisinopriL 20 MG TAB PO SCH (09:00)
[2022-12-22] MEDS: hydrALAZINE HCL 25 MG TAB PO SCH ×2 (09:01→20:13)
[2022-12-22] MEDS: GABAPENTIN 300 MG CAP PO SCH ×3 (09:01→20:13)
[2022-12-22] MEDS: METOPROLOL SUCCINATE (ER) 50 MG TAB.ER.24H PO SCH (09:01)
[2022-12-22] MEDS: ASPIRIN 81 MG PO SCH (09:01)
[2022-12-22] MEDS: 1: MVI, ADULT NO.4 WITH VIT K 10 ML, TRACE (CONC-1ML/DOSE) 1 ML in AMINO ACID 5%-D20W+LY IV SCH ×6 (10:22→22:38)
--- NOTE | 2022-12-22 10:42 | P.PN ---
Subjective Progress Note Date: 12/22/22 Subjective: Seen and examined at bedside. No acute events overnight. able to tolerate some clear liquids. Pertinent positives and negatives as discussed above, a complete review of systems was performed and all other systems are negative. Vitals Signs Reviewed. General: non toxic, no distress, appears at stated age Derm: warm, dry Head: atraumatic, normocephalic, symmetric Eyes: EOMI, no lid lag, anicteric sclera Cardiovascular: S1S2 reg, no murmur Lungs: CTA bilateral, no rhonchi, no rales , no accessory muscle use Abdominal: no bowel sounds with midline surgical incision dressing c/d/i, no guarding, no appreciable organomegaly, colostomy intact, drain in place Ext: no gross muscle atrophy, no edema, no contractures Neuro: no focal neuro deficits Psych: Alert, oriented, appropriate affect Data Reviewed Today: Pertinent Labs: CBC BMP pending, will be reviewed when available, blood sugars range between 133-148 Imaging: No new imaging Assessment and Plan: Acute blood loss anemia, hemoglobin stable Ileus Sepsis secondary to perforated sigmoid diverticulitis with abscess formation status post exploratory laparotomy with lysis of adhesions, sigmoid colectomy, drainage of pelvic abscess CAD status post stent Hypertension Dyslipidemia Type 2 diabetes Hypothyroidism Asthma exacerbation, resolved -Continue IV pantoprazole -NG tube now out, patient started on clear liquids -Patient remains on TPN -ID also following -Currently on Zosyn IV -Home medications reviewed, no changes -Continue sliding scale insulin, q6h as patient is nothing by mouth Thank you for allowing us to participate in the care of this pleasant patient. Do not hesitate to contact us with questions. Someone can be reached from the [facility] hospitalist group all hours of the day at [phone] or via [employer]. Objective - Vital Signs Vital signs: Vital Signs Temp 98.6 F 12/22/22 07:04 Pulse 88 12/22/22 07:04 Resp 17 12/22/22 07:04 BP 114/72 12/22/22 07:04 Pulse Ox 91 L 12/22/22 07:04 FiO2 21 12/21/22 08:38 Intake & Output 12/21/22 12/22/22 12/22/22 18:59 06:59 18:59 Intake Total 1000 3060 Output Total 200 845 40 Balance 800 2215 -40 Weight 136.078 kg Intake: Intake, IV Titration 1000 2700 Amount Amino Acid 5%-D20w+Lytes* 900 1000 E* 1,000 ml @ 75 mls/hr IV .BY DURATION [facility] Rx#: [id number] Lactated Ringers 1,000 ml 1500 @ 125 mls/hr IV .Q8H [facility] Rx#:[id number] Piperacillin-Tazobactam 3 200 .375 gm In Sodium Chloride 0.9% 100 ml @ 25 mls/hr IVPB Q8H [facility] Rx#: [id number] Piperacillin-Tazobactam 3 100 .375 gm In Sodium Chloride 0.9% 100 ml @ 25 mls/hr IVPB Q8HR [facility] Rx# :[id number] Oral 360 Output: Drainage 200 95 40 Right Abdomen 200 95 40 Urine 750 Other: Voiding Method Urinal Urinal - Labs CBC & Chem 7: 12/21/22 07:02 12/21/22 07:02 Labs: Abnormal Lab Results - Last 24 Hours (Table) 12/21/22 12/21/22 12/21/22 Range/Units 07:02 13:08 18:28 RBC 2.72 L (4.40-5.60) X 10*6/uL Hgb 7.5 L (13.0-17.0) d/dL Hct 24.2 L (39.6-50.0) % MCHC 31.0 L (32.0-37.0) d/dL RDW 15.0 H (11.5-14.5) % POC Glucose (mg/dL) 133 H 148 H (70-110) mg/dL 12/21/22 12/22/22 Range/Units 20:43 06:00 RBC (4.40-5.60) X 10*6/uL Hgb (13.0-17.0) d/dL Hct (39.6-50.0) % MCHC (32.0-37.0) d/dL RDW (11.5-14.5) % POC Glucose (mg/dL) 144 H 145 H (70-110) mg/dL
[2022-12-22 11:29] LABS: Glucose,Whole Blood 148 mg/dL (70-110)
[2022-12-22] MEDS: LACTATED RINGERS 1,000 ML IV SCH ×2 (12:03→20:15)
--- NOTE | 2022-12-22 13:21 | P.PN ---
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 Patient is having air through his ostomy bag. NG tube was removed yesterday and he was started on clear liquid diet. He is tolerating diet no nausea or vomiting. Pain is better controlled today. He is sitting up at bedside chair. Afebrile. Labs for today are pending. Patient had ostomy teaching yesterday. Prevana wound vac removed y esterday. PHYSICAL EXAM: VITAL SIGNS: Reviewed GENERAL: Well-developed in no acute distress. HEENT: No sclera icterus. Extraocular movements grossly intact. Moist buccal mucosa. Head is atraumatic, normocephalic. Hears conversational speech. No nasal drainage. NECK: Supple without lymphadenopathy. CHEST: Non-labored respirations and equal bilateral excursions. CARDIOVASCULAR: Palpable 2+ radial pulses. ABDOMEN: Soft. Nondistended. Ostomy with blood. Stoma dusky. Incisional dressing clean dry and intact MUSCULOSKELETAL: No clubbing or cyanosis. NEUROLOGIC: No focal or lateralizing signs. Cranial nerves II through XII grossly intact. PSYCH: Appropriate affect. Alert and oriented to person, place and time. SKIN: Well perfused. Good skin turgor. ASSESSMENT: 1. Perforated diverticulitis with abscess and phlegmon 2. Morbid obesity due to excess calories 3. Hypokalemia 4. Small bowel fistula status post resection 5. Postoperative Ileus expected outcome following surgery 6. Acute blood loss anemia PLAN: -Advance diet to low fiber -Continue TPN until oral intake increases and to make sure patient is tolerating diet. -Continue pain management -Continue antibiotics -Encourage patient to increase activity level -Encourage patient to ambulate -Encourage patient to use incentive spirometer -Subcu heparin discontinued due to anemia and bleeding from ostomy -Repeat labs in a.m. -DVT prophylaxis SCDs Physician Galley Stripper note has been reviewed by physician. Signing provider agrees with the documented findings, assessment, and plan of care. Objective - Vital Signs Vital signs: Vital Signs Temp 98.6 F 12/22/22 07:04 Pulse 88 12/22/22 07:04 Resp 17 12/22/22 07:04 BP 114/72 12/22/22 07:04 Pulse Ox 91 L 12/22/22 07:04 FiO2 21 12/21/22 08:38 Intake & Output 12/21/22 12/22/22 12/22/22 18:59 06:59 18:59 Intake Total 1000 3060 Output Total 200 845 40 Balance 800 2215 -40 Weight 136.078 kg Intake: Intake, IV Titration 1000 2700 Amount Amino Acid 5%-D20w+Lytes* 900 1000 E* 1,000 ml @ 75 mls/hr IV .BY DURATION [facility] Rx#: [id number] Lactated Ringers 1,000 ml 1500 @ 125 mls/hr IV .Q8H [facility] Rx#:[id number] Piperacillin-Tazobactam 3 200 .375 gm In Sodium Chloride 0.9% 100 ml @ 25 mls/hr IVPB Q8H [facility] Rx#: [id number] Piperacillin-Tazobactam 3 100 .375 gm In Sodium Chloride 0.9% 100 ml @ 25 mls/hr IVPB Q8HR [facility] Rx# :[id number] Oral 360 Output: Drainage 200 95 40 Right Abdomen 200 95 40 Urine 750 Other: Voiding Method Urinal Urinal - Labs CBC & Chem 7: 12/21/22 07:02 12/21/22 07:02 Labs: Abnormal Lab Results - Last 24 Hours (Table) 12/21/22 12/21/22 12/22/22 Range/Units 18:28 20:43 06:00 POC Glucose (mg/dL) 148 H 144 H 145 H (70-110) mg/dL 12/22/22 Range/Units 11:28 POC Glucose (mg/dL) 148 H (70-110) mg/dL
[2022-12-22 14:37] LABS: HCT 24.3 % (39.6-50.0); HGB 7.6 d/dL (13.0-17.0); MCH 27.7 pg (27.0-32.0); MCHC 31.3 d/dL (32.0-37.0); MCV 88.7 FL (80.0-97.0); Mean Platelet Volume 9.8 FL (9.5-12.2); NRBC Per 100 WBC 0.02 X 10*3/uL (0.00-0.01); Platelet Count 357 X 10*3/uL (140-440); RBC 2.74 X 10*6/uL (4.40-5.60); RDW 15.4 % (11.5-14.5); WBC 5.73 X 10*3/uL (4.50-10.00)
[2022-12-22 16:20] LABS: Glucose,Whole Blood 153 mg/dL (70-110)
[2022-12-22 20:49] LABS: Glucose,Whole Blood 141 mg/dL (70-110)
[2022-12-23] MEDS: HYDROmorphone 1 MG/ML 1 ML SYRINGE IVP PRN ×6 (00:29→21:11)
[2022-12-23] MEDS: METOCLOPRAMIDE 5 MG/ML 2 ML VIAL IVP SCH ×4 (00:29→17:47)
[2022-12-23] MEDS: INSULIN ASPART (NovoLOG) 100 UNIT/ML VIAL SQ SCH ×5 (00:35→20:59)
[2022-12-23 00:55] LABS: BUN/Creat Ratio 14.67 Ratio (12.00-20.00); Blood Urea Nitrogen 8.8 mg/dL (9.0-27.0); Calcium 8.2 mg/dL (8.7-10.3); Carbon Dioxide 26.1 mmol/L (21.6-31.8); Chloride 101 mmol/L (96-109); Glucose 128 mg/dL (70-110); Potassium 3.9 mmol/L (3.5-5.5); Sodium 137 mmol/L (135-145)
[2022-12-23] MEDS: LACTATED RINGERS 1,000 ML IV SCH ×3 (03:07→18:16)
[2022-12-23] MEDS: PIPERACILLIN-TAZOBACTAM 3.375 GM in SODIUM CHLORIDE 0.9% 100 ML IVPB SCH ×3 (03:26→21:13)
[2022-12-23 06:01] LABS: Glucose,Whole Blood 148 mg/dL (70-110)
[2022-12-23] MEDS: ACETAMINOPHEN TAB 500 MG TAB PO SCH ×3 (06:29→17:46)
[2022-12-23] MEDS: LEVOTHYROXINE 100 MCG TAB PO SCH (06:29)
[2022-12-23] MEDS: METOPROLOL SUCCINATE (ER) 50 MG TAB.ER.24H PO SCH (08:51)
[2022-12-23] MEDS: lisinopriL 20 MG TAB PO SCH (08:51)
[2022-12-23] MEDS: GABAPENTIN 300 MG CAP PO SCH ×3 (08:51→21:13)
[2022-12-23] MEDS: ASPIRIN 81 MG PO SCH (08:51)
[2022-12-23] MEDS: hydrALAZINE HCL 25 MG TAB PO SCH ×2 (08:51→23:27)
[2022-12-23 09:13] LABS: African American GFR (CKD) >90 (>60 ml/min/1.73 sqM); Anion Gap 6 mmol/L; Blood Urea Nitrogen 12 mg/dL (9-20); Calcium 7.5 mg/dL (8.4-10.2); Carbon Dioxide 24 mmol/L (22-30); Chloride 102 mmol/L (98-107); Glucose 128 mg/dL (74-99); Magnesium 1.8 mg/dL (1.6-2.3); Non-African American GFR(CKD) >90 (>60 ml/min/1.73 sqM); Phosphorus 3.4 mg/dL (2.5-4.5); Potassium 3.9 mmol/L (3.5-5.1); Sodium 132 mmol/L (137-145)
[2022-12-23] MEDS: PANTOPRAZOLE 40 MG/10 ML VIAL IV SCH (09:38)
[2022-12-23] MEDS ORDERED: MAGNESIUM SULFATE-D5W PMX 1 GM in DEXTROSE/WATER 1 100ML.BAG IVPB ONE (10:00)
[2022-12-23] MEDS: 1: MVI, ADULT NO.4 WITH VIT K 10 ML, TRACE (CONC-1ML/DOSE) 1 ML in AMINO ACID 5%-D20W+LY IV SCH ×6 (10:33→11:07)
[2022-12-23] MEDS: FAT EMULSION 20% 250 ML IV SCH (10:34)
[2022-12-23 11:07] LABS: Glucose,Whole Blood 150 mg/dL (70-110)
[2022-12-23 11:09] LABS: HCT 23.6 % (39.6-50.0); HGB 7.6 d/dL (13.0-17.0); MCH 27.8 pg (27.0-32.0); MCHC 32.2 d/dL (32.0-37.0); MCV 86.4 FL (80.0-97.0); Mean Platelet Volume 9.9 FL (9.5-12.2); NRBC Per 100 WBC 0 X 10*3/uL (0.00-0.01); Platelet Count 366 X 10*3/uL (140-440); RBC 2.73 X 10*6/uL (4.40-5.60); RDW 15.3 % (11.5-14.5); WBC 5.34 X 10*3/uL (4.50-10.00)
--- NOTE | 2022-12-23 13:25 | P.PN ---
Subjective Progress Note Date: 12/23/22 Subjective: Seen and examined at bedside. No acute events overnight. able to tolerate some solid food, but did have increased abdominal pain after that. Pertinent positives and negatives as discussed above, a complete review of systems was performed and all other systems are negative. Vitals Signs Reviewed. General: non toxic, no distress, appears at stated age Derm: warm, dry Head: atraumatic, normocephalic, symmetric Eyes: EOMI, no lid lag, anicteric sclera Cardiovascular: S1S2 reg, no murmur Lungs: CTA bilateral, no rhonchi, no rales , no accessory muscle use Abdominal: no bowel sounds with midline surgical incision dressing c/d/i, no guarding, no appreciable organomegaly, colostomy intact, drain in place Ext: no gross muscle atrophy, no edema, no contractures Neuro: no focal neuro deficits Psych: Alert, oriented, appropriate affect Data Reviewed Today: Pertinent Labs: Hemoglobin 7.6, sodium 132, potassium 3.9, creatinine 0.71 128 153 Imaging: No new imaging Assessment and Plan: Acute blood loss anemia, hemoglobin stable Ileus Sepsis secondary to perforated sigmoid diverticulitis with abscess formation status post exploratory laparotomy with lysis of adhesions, sigmoid colectomy, drainage of pelvic abscess CAD status post stent Hypertension Dyslipidemia Type 2 diabetes Hypothyroidism Asthma exacerbation, resolved -Continue IV pantoprazole -Advancing diet slowly -Patient remains on TPN -ID also following -Currently on Zosyn IV -Home medications reviewed, no changes -Continue sliding scale insulin, change to before meals at bedtime Thank you for allowing us to participate in the care of this pleasant patient. Do not hesitate to contact us with questions. Someone can be reached from the [facility] hospitalist group all hours of the day at [phone] or via [employer]. Objective - Vital Signs Vital signs: Vital Signs Temp 99.3 F 12/23/22 07:02 Pulse 84 12/23/22 11:37 Resp 18 12/23/22 11:37 BP 104/69 12/23/22 07:02 Pulse Ox 95 12/23/22 07:02 FiO2 21 12/21/22 08:38 Intake & Output 12/22/22 12/23/22 12/23/22 18:59 06:59 18:59 Intake Total 1011 3080 993.75 Output Total 65 1980 Balance 946 1100 993.75 Intake: Intake, IV Titration 1011 2600 893.75 Amount Amino Acid 5%-D20w+Lytes* 1000 E* 1,000 ml @ 75 mls/hr IV .BY DURATION [facility] Rx#: [id number] Lactated Ringers 1,000 ml 1500 @ 125 mls/hr IV .Q8H [facility] Rx#:[id number] Mvi, Adult No.4 with Vit 1011 893.75 K 10 ml Trace (Conc-1Ml/ Dose) 1 ml In Amino Acid 5%-D20w+Lytes*E* 1,000 ml @ 75 mls/hr IV .BY DURATION [facility] Rx#: [id number] Piperacillin-Tazobactam 3 100 .375 gm In Sodium Chloride 0.9% 100 ml @ 25 mls/hr IVPB Q8H [facility] Rx#: [id number] Oral 480 100 Output: Drainage 65 30 Right Abdomen 65 30 Urine 1950 Other: Voiding Method Urinal Urinal # Voids 3 - Labs CBC & Chem 7: 12/23/22 08:09 12/23/22 08:09 Labs: Abnormal Lab Results - Last 24 Hours (Table) 12/22/22 12/22/22 12/22/22 Range/Units 04:26 04:26 16:18 RBC 2.74 L (4.40-5.60) X 10*6/uL Hgb 7.6 L (13.0-17.0) d/dL Hct 24.3 L (39.6-50.0) % MCHC 31.3 L (32.0-37.0) d/dL RDW 15.4 H (11.5-14.5) % NRBC/100 WBC Diff 0.02 H (0.00-0.01) X 10*3/uL Sodium (137-145) mmol/L BUN 8.8 L (9.0-27.0) mg/dL Glucose 128 H (70-110) mg/dL POC Glucose (mg/dL) 153 H (70-110) mg/dL Calcium 8.2 L (8.7-10.3) mg/dL 12/22/22 12/23/22 12/23/22 Range/Units 20:47 06:00 08:09 RBC 2.73 L (4.40-5.60) X 10*6/uL Hgb 7.6 L (13.0-17.0) d/dL Hct 23.6 L (39.6-50.0) % MCHC (32.0-37.0) d/dL RDW 15.3 H (11.5-14.5) % NRBC/100 WBC Diff (0.00-0.01) X 10*3/uL Sodium (137-145) mmol/L BUN (9.0-27.0) mg/dL Glucose (70-110) mg/dL POC Glucose (mg/dL) 141 H 148 H (70-110) mg/dL Calcium (8.7-10.3) mg/dL 12/23/22 12/23/22 Range/Units 08:09 11:06 RBC (4.40-5.60) X 10*6/uL Hgb (13.0-17.0) d/dL Hct (39.6-50.0) % MCHC (32.0-37.0) d/dL RDW (11.5-14.5) % NRBC/100 WBC Diff (0.00-0.01) X 10*3/uL Sodium 132 L (137-145) mmol/L BUN (9.0-27.0) mg/dL Glucose 128 H (70-110) mg/dL POC Glucose (mg/dL) 150 H (70-110) mg/dL Calcium 7.5 L (8.7-10.3) mg/dL
[2022-12-23 13:40] LABS: Magnesium 1.7 mg/dL (1.5-2.4); Phosphorus 3.1 mg/dL (2.4-5.1)
[2022-12-23 15:00] LABS: HCT 27.6 % (39.0-53.0); HGB 9.1 gm/dL (13.0-17.5); Hypochromasia Slight; MCH 28.8 pg (25.0-35.0); MCHC 32.9 g/dL (31.0-37.0); MCV 87.5 fL (80.0-100.0); Platelet Count 412 k/uL (150-450); RBC 3.15 m/uL (4.30-5.90); RDW 15.6 % (11.5-15.5); WBC 5.6 k/uL (3.8-10.6)
[2022-12-23] MEDS: LORazepam 2 MG/ML INJ IV PRN ×2 (15:35→19:49)
--- NOTE | 2022-12-23 15:36 | P.PN ---
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 Patient's ostomy is functioning. He is tolerating a low fiber diet. He does report that the appetite though is decreased. Afebrile WBC 5.3 for Hgb 7.6 PHYSICAL EXAM: VITAL SIGNS: Reviewed GENERAL: Well-developed in no acute distress. HEENT: No sclera icterus. Extraocular movements grossly intact. Moist buccal mucosa. Head is atraumatic, normocephalic. Hears conversational speech. No nasal drainage. NECK: Supple without lymphadenopathy. CHEST: Non-labored respirations and equal bilateral excursions. CARDIOVASCULAR: Palpable 2+ radial pulses. ABDOMEN: Soft. Nondistended. Ostomy with stool. No further blood noted. St jada is less dusky today. Incision with serous drainage noted on bandage. SUSAN drain serous MUSCULOSKELETAL: No clubbing or cyanosis. NEUROLOGIC: No focal or lateralizing signs. Cranial nerves II through XII grossly intact. PSYCH: Appropriate affect. Alert and oriented to person, place and time. SKIN: Well perfused. Good skin turgor. ASSESSMENT: 1. Perforated diverticulitis with abscess and phlegmon 2. Morbid obesity due to excess calories 3. Hypokalemia 4. Small bowel fistula status post resection 5. Postoperative Ileus expected outcome following surgery 6. Acute blood loss anemia PLAN: -Nursing staff to change surgical dressing. Incision to be cleaned with hydrogen peroxide twice a day and covered with 4 x 4's. Change dressing as needed -Wean off TPN -Continue low fiber diet -Continue pain management -Continue antibiotics -Encourage patient to increase activity level -Encourage patient to ambulate -Encourage patient to use incentive spirometer -Subcu heparin discontinued due to anemia and bleeding from ostomy. No further bleeding noted. -Repeat labs in a.m. -DVT prophylaxis SCDs Physician Finance Consultant note has been reviewed by physician. Signing provider agrees with the documented findings, assessment, and plan of care. Objective - Vital Signs Vital signs: Vital Signs Temp 99.3 F 12/23/22 07:02 Pulse 84 12/23/22 07:02 Resp 16 12/23/22 07:02 BP 104/69 12/23/22 07:02 Pulse Ox 95 12/23/22 07:02 FiO2 21 12/21/22 08:38 Intake & Output 12/22/22 12/23/22 12/23/22 18:59 06:59 18:59 Intake Total 1011 3080 893.75 Output Total 65 1980 Balance 946 1100 893.75 Intake: Intake, IV Titration 1011 2600 893.75 Amount Amino Acid 5%-D20w+Lytes* 1000 E* 1,000 ml @ 75 mls/hr IV .BY DURATION [facility] Rx#: [id number] Lactated Ringers 1,000 ml 1500 @ 125 mls/hr IV .Q8H [facility] Rx#:[id number] Mvi, Adult No.4 with Vit 1011 893.75 K 10 ml Trace (Conc-1Ml/ Dose) 1 ml In Amino Acid 5%-D20w+Lytes*E* 1,000 ml @ 75 mls/hr IV .BY DURATION [facility] Rx#: [id number] Piperacillin-Tazobactam 3 100 .375 gm In Sodium Chloride 0.9% 100 ml @ 25 mls/hr IVPB Q8H [facility] Rx#: [id number] Oral 480 Output: Drainage 65 30 Right Abdomen 65 30 Urine 1950 Other: Voiding Method Urinal # Voids 3 - Labs CBC & Chem 7: 12/23/22 08:09 12/23/22 08:09 Labs: Abnormal Lab Results - Last 24 Hours (Table) 12/22/22 12/22/22 12/22/22 Range/Units 04:26 04:26 16:18 RBC 2.74 L (4.40-5.60) X 10*6/uL Hgb 7.6 L (13.0-17.0) d/dL Hct 24.3 L (39.6-50.0) % MCHC 31.3 L (32.0-37.0) d/dL RDW 15.4 H (11.5-14.5) % NRBC/100 WBC Diff 0.02 H (0.00-0.01) X 10*3/uL Sodium (137-145) mmol/L BUN 8.8 L (9.0-27.0) mg/dL Glucose 128 H (70-110) mg/dL POC Glucose (mg/dL) 153 H (70-110) mg/dL Calcium 8.2 L (8.7-10.3) mg/dL 12/22/22 12/23/22 12/23/22 Range/Units 20:47 06:00 08:09 RBC 2.73 L (4.40-5.60) X 10*6/uL Hgb 7.6 L (13.0-17.0) d/dL Hct 23.6 L (39.6-50.0) % MCHC (32.0-37.0) d/dL RDW 15.3 H (11.5-14.5) % NRBC/100 WBC Diff (0.00-0.01) X 10*3/uL Sodium (137-145) mmol/L BUN (9.0-27.0) mg/dL Glucose (70-110) mg/dL POC Glucose (mg/dL) 141 H 148 H (70-110) mg/dL Calcium (8.7-10.3) mg/dL 12/23/22 12/23/22 Range/Units 08:09 11:06 RBC (4.40-5.60) X 10*6/uL Hgb (13.0-17.0) d/dL Hct (39.6-50.0) % MCHC (32.0-37.0) d/dL RDW (11.5-14.5) % NRBC/100 WBC Diff (0.00-0.01) X 10*3/uL Sodium 132 L (137-145) mmol/L BUN (9.0-27.0) mg/dL Glucose 128 H (70-110) mg/dL POC Glucose (mg/dL) 150 H (70-110) mg/dL Calcium 7.5 L (8.7-10.3) mg/dL
[2022-12-23 16:10] LABS: Glucose,Whole Blood 151 mg/dL (70-110)
--- NOTE | 2022-12-23 16:29 | P.PN ---
Subjective Progress Note Date: 12/21/22 Principal diagnosis: Perforated diverticulitis and intra-abdominal abscess Patient is a 57 year male with a recent admission to the hospital with perforated diverticulitis and abscess status post laparoscopic drainage culture were negative patient received 2 weeks of IV antibiotic in the hospital subsequent discharged on oral antibiotic and presented back to the hospital with worsening abdominal pain, patient did have CT of abdominal pelvis which did shows trace peritoneal and abscess.Patient is status post exploratory laparotomy with lysis of adhesion sigmoid colectomy excision of small bowel fistula x2 and small bowel resection along with primary anastomosis procedure was completed on 12/16/2022. On today's evaluation that is 12/21/2022 the patient remains to be afebrile, the patient is breathing comfortably on the 2 L nasal cannula oxygen the patient NG has been discontinued and the patient complaining of more abdominal discomfort after removal of the NG, no further vomiting and did not have any output in the colostomy no chest pain or cough. Patient white count is 5.50 creatinine is 0.64 abdominal cultures currently pending Objective - Vital Signs Vital signs: Vital Signs Temp 98.1 F 12/21/22 08:00 Pulse 77 12/21/22 08:00 Resp 19 12/21/22 08:00 BP 154/92 12/21/22 08:00 Pulse Ox 97 12/21/22 08:38 FiO2 21 12/21/22 08:38 Intake & Output 12/20/22 12/21/22 12/21/22 18:59 06:59 18:59 Intake Total 367.5 Output Total 1170 1590 Balance -802.5 -1590 Weight 136.078 kg Intake: Intake, IV Titration 57.5 Amount Mvi, Adult No.4 with Vit 57.5 K 10 ml Trace (Conc-1Ml/ Dose) 1 ml In Amino Acid 5%-D20w+Lytes*E* 1,000 ml @ 30 mls/hr IV .Q24H [facility] Rx#:[id number] Blood Product 310 Rc As-1 Unit 310 [id number] Output: Gastric Drainage 200 200 Drainage 20 90 Right Abdomen 20 90 Urine 950 1300 Other: Voiding Method Indwelling Catheter Indwelling Catheter Urinal - Exam GENERAL DESCRIPTION: Middle-age male lying in bed in no distress RESPIRATORY SYSTEM: Unlabored breathing , clear to auscultation anteriorly HEART: S1 S2 regular rate and rhythm , ABDOMEN: Soft , mild distention and tenderness EXTREMITIES: No edema feet - Labs CBC & Chem 7: 12/23/22 14:31 12/23/22 08:09 Labs: Abnormal Lab Results - Last 24 Hours (Table) 12/20/22 12/20/22 12/20/22 Range/Units 12:52 19:56 23:52 RBC (4.40-5.60) X 10*6/uL Hgb (13.0-17.0) d/dL Hct (39.6-50.0) % MCHC (32.0-37.0) d/dL RDW (11.5-14.5) % Creatinine (0.66-1.25) mg/dL Glucose (74-99) mg/dL POC Glucose (mg/dL) 125 H 155 H (70-110) mg/dL Calcium (8.4-10.2) mg/dL AST (17-59) U/L ALT (4-49) U/L Total Protein (6.3-8.2) g/dL Albumin (3.5-5.0) g/dL Crossmatch See Detail 12/21/22 12/21/22 12/21/22 Range/Units 05:12 07:02 07:02 RBC 2.72 L (4.40-5.60) X 10*6/uL Hgb 7.5 L (13.0-17.0) d/dL Hct 24.2 L (39.6-50.0) % MCHC 31.0 L (32.0-37.0) d/dL RDW 15.0 H (11.5-14.5) % Creatinine 0.64 L (0.66-1.25) mg/dL Glucose 116 H (74-99) mg/dL POC Glucose (mg/dL) 133 H (70-110) mg/dL Calcium 7.9 L (8.4-10.2) mg/dL AST 90 H (17-59) U/L ALT 55 H (4-49) U/L Total Protein 5.4 L (6.3-8.2) g/dL Albumin 2.6 L (3.5-5.0) g/dL Crossmatch 12/21/22 Range/Units 13:08 RBC (4.40-5.60) X 10*6/uL Hgb (13.0-17.0) d/dL Hct (39.6-50.0) % MCHC (32.0-37.0) d/dL RDW (11.5-14.5) % Creatinine (0.66-1.25) mg/dL Glucose (74-99) mg/dL POC Glucose (mg/dL) 133 H (70-110) mg/dL Calcium (8.4-10.2) mg/dL AST (17-59) U/L ALT (4-49) U/L Total Protein (6.3-8.2) g/dL Albumin (3.5-5.0) g/dL Crossmatch Microbiology - Last 24 Hours (Table) 12/16/22 18:57 Anaerobic Culture - Final Other - Other 12/16/22 18:57 Anaerobic Culture - Final Other - Other 12/16/22 18:57 Gram Stain - Final Other - Other Wound Culture - Final Assessment and Plan (1) Diverticulitis of intestine, part unspecified, with perforation and abscess without bleeding Current Visit: No Status: Acute Code(s): K57.80 - DVTRCLI OF INTEST, PART UNSP, W PERF AND ABSCESS W/O BLEED SNOMED Code(s): 084264757 (2) Intra-abdominal abscess Current Visit: No Status: Acute Code(s): K65.1 - PERITONEAL ABSCESS SNOMED Code(s): 25109911 Plan: 1patient with intra-abdominal abscess from perforated diverticulitis in this patient with a previous laparoscopic drainage of the abscess and cultures were negative now presented back to the hospital with worsening abdominal pain and evidence of perforation diverticulitis with intra-abdominal abscess slightly decreased in size, with a previous laparoscopic drainage culture did not grow any bacteria 2- patient is afebrile and the patient white count is normal 3- the patient did have a repeat a CT abdominal pelvis that was reviewed with the IR and cannot be drained CT-guided, Patient status post extensive surgery drainage of the abscess sigmoid colectomy resection of the small bowel fistula and primary anastomosis completed on 12/16/2022 abdominal cultures were obtained which are so far negative 4Patient NG has been discontinued this morning has coming up with more abdominal pain if any worsening abdominal pain may benefit from repeat a CT, patient to continue the Zosyn and monitor clinical course closely Dictation was produced using [employer] dictation software. please excuse any grammatical, word or spelling errors.
--- NOTE | 2022-12-23 16:31 | P.PN ---
Subjective Progress Note Date: 12/22/22 Principal diagnosis: Perforated diverticulitis and intra-abdominal abscess Patient is a 57 year male with a recent admission to the hospital with perforated diverticulitis and abscess status post laparoscopic drainage culture were negative patient received 2 weeks of IV antibiotic in the hospital subsequent discharged on oral antibiotic and presented back to the hospital with worsening abdominal pain, patient did have CT of abdominal pelvis which did shows trace peritoneal and abscess.Patient is status post exploratory laparotomy with lysis of adhesion sigmoid colectomy excision of small bowel fistula x2 and small bowel resection along with primary anastomosis procedure was completed on 12/16/2022. On today's evaluation that is 12/22/2022 the patient continues to be afebrile, the patient is breathing comfortably on room air, the patient abdominal discomfort has decreased in intensity, no further vomiting and did not have any output in the colostomy no chest pain or cough. Patient white count is 5.73 creatinine is 0.6 abdominal cultures so far negative. Objective - Vital Signs Vital signs: Vital Signs Temp 98.6 F 12/22/22 07:04 Pulse 88 12/22/22 07:04 Resp 17 12/22/22 07:04 BP 114/72 12/22/22 07:04 Pulse Ox 91 L 12/22/22 07:04 FiO2 21 12/21/22 08:38 Intake & Output 12/21/22 12/22/22 12/22/22 18:59 06:59 18:59 Intake Total 1000 3060 Output Total 200 845 40 Balance 800 2215 -40 Weight 136.078 kg Intake: Intake, IV Titration 1000 2700 Amount Amino Acid 5%-D20w+Lytes* 900 1000 E* 1,000 ml @ 75 mls/hr IV .BY DURATION [facility] Rx#: [id number] Lactated Ringers 1,000 ml 1500 @ 125 mls/hr IV .Q8H [facility] Rx#:[id number] Piperacillin-Tazobactam 3 200 .375 gm In Sodium Chloride 0.9% 100 ml @ 25 mls/hr IVPB Q8H [facility] Rx#: [id number] Piperacillin-Tazobactam 3 100 .375 gm In Sodium Chloride 0.9% 100 ml @ 25 mls/hr IVPB Q8HR [facility] Rx# :[id number] Oral 360 Output: Drainage 200 95 40 Right Abdomen 200 95 40 Urine 750 Other: Voiding Method Urinal Urinal - Exam GENERAL DESCRIPTION: Middle-age male lying in bed in no distress RESPIRATORY SYSTEM: Unlabored breathing , clear to auscultation anteriorly HEART: S1 S2 regular rate and rhythm , ABDOMEN: Soft , mild distention and tenderness EXTREMITIES: No edema feet - Labs CBC & Chem 7: 12/23/22 14:31 12/23/22 08:09 Labs: Abnormal Lab Results - Last 24 Hours (Table) 12/21/22 12/21/22 12/22/22 Range/Units 18:28 20:43 06:00 POC Glucose (mg/dL) 148 H 144 H 145 H (70-110) mg/dL 12/22/22 Range/Units 11:28 POC Glucose (mg/dL) 148 H (70-110) mg/dL Assessment and Plan (1) Diverticulitis of intestine, part unspecified, with perforation and abscess without bleeding Current Visit: No Status: Acute Code(s): K57.80 - DVTRCLI OF INTEST, PART UNSP, W PERF AND ABSCESS W/O BLEED SNOMED Code(s): 453624262 (2) Intra-abdominal abscess Current Visit: No Status: Acute Code(s): K65.1 - PERITONEAL ABSCESS SNOMED Code(s): 03235973 Plan: 1patient with intra-abdominal abscess from perforated diverticulitis in this patient with a previous laparoscopic drainage of the abscess and cultures were negative now presented back to the hospital with worsening abdominal pain and evidence of perforation diverticulitis with intra-abdominal abscess slightly decreased in size, with a previous laparoscopic drainage culture did not grow any bacteria 2- the patient did have a repeat a CT abdominal pelvis that was reviewed with the IR and cannot be drained CT-guided, Patient status post extensive surgery drainage of the abscess sigmoid colectomy resection of the small bowel fistula and primary anastomosis completed on 12/16/2022 abdominal cultures were obtained which are so far negative 3Patient seemed to be slowly clinical improvement the patient was to be from her white count is normal, patient to continue the Zosyn and monitor clinical course closely Dictation was produced using [employer] dictation software. please excuse any grammatical, word or spelling errors. Time with Patient: Less than 30
--- NOTE | 2022-12-23 16:33 | P.PN ---
Subjective Progress Note Date: 12/23/22 Principal diagnosis: Perforated diverticulitis and intra-abdominal abscess Patient is a 57 year male with a recent admission to the hospital with perforated diverticulitis and abscess status post laparoscopic drainage culture were negative patient received 2 weeks of IV antibiotic in the hospital subsequent discharged on oral antibiotic and presented back to the hospital with worsening abdominal pain, patient did have CT of abdominal pelvis which did shows trace peritoneal and abscess.Patient is status post exploratory laparotomy with lysis of adhesion sigmoid colectomy excision of small bowel fistula x2 and small bowel resection along with primary anastomosis procedure was completed on 12/16/2022. On today's evaluation that is 12/23/2022 the patient denies any fever or chills, the patient is breathing comfortably on room air, the patient abdominal discomfort has decreased in intensity, the patient denies nausea or vomiting has been started on a clear liquid diet the patient has been tolerating and did have some output in the colostomy Patient white count is 5.6 creatinine is 0.71 abdominal cultures so far negative. Objective - Vital Signs Vital signs: Vital Signs Temp 99.1 F 12/23/22 13:28 Pulse 80 12/23/22 13:28 Resp 17 12/23/22 13:28 BP 124/79 12/23/22 13:28 Pulse Ox 95 12/23/22 13:28 FiO2 21 12/21/22 08:38 Intake & Output 12/22/22 12/23/22 12/23/22 18:59 06:59 18:59 Intake Total 1011 3080 993.75 Output Total 65 1980 800 Balance 946 1100 193.75 Weight 136.078 kg Intake: Intake, IV Titration 1011 2600 893.75 Amount Amino Acid 5%-D20w+Lytes* 1000 E* 1,000 ml @ 75 mls/hr IV .BY DURATION [facility] Rx#: [id number] Lactated Ringers 1,000 ml 1500 @ 125 mls/hr IV .Q8H [facility] Rx#:[id number] Mvi, Adult No.4 with Vit 1011 893.75 K 10 ml Trace (Conc-1Ml/ Dose) 1 ml In Amino Acid 5%-D20w+Lytes*E* 1,000 ml @ 75 mls/hr IV .BY DURATION [facility] Rx#: [id number] Piperacillin-Tazobactam 3 100 .375 gm In Sodium Chloride 0.9% 100 ml @ 25 mls/hr IVPB Q8H [facility] Rx#: [id number] Oral 480 100 Output: Drainage 65 30 Right Abdomen 65 30 Urine 1950 800 Other: Voiding Method Urinal Urinal # Voids 3 - Exam GENERAL DESCRIPTION: Middle-age male lying in bed in no distress RESPIRATORY SYSTEM: Unlabored breathing , clear to auscultation anteriorly HEART: S1 S2 regular rate and rhythm , ABDOMEN: Soft , mild distention and tenderness EXTREMITIES: No edema feet - Labs CBC & Chem 7: 12/23/22 14:31 12/23/22 08:09 Labs: Abnormal Lab Results - Last 24 Hours (Table) 12/22/22 12/22/22 12/22/22 Range/Units 04:26 16:18 20:47 RBC (4.40-5.60) X 10*6/uL Hgb (13.0-17.0) d/dL Hct (39.6-50.0) % RDW (11.5-14.5) % Sodium (137-145) mmol/L BUN 8.8 L (9.0-27.0) mg/dL Glucose 128 H (70-110) mg/dL POC Glucose (mg/dL) 153 H 141 H (70-110) mg/dL Calcium 8.2 L (8.7-10.3) mg/dL 12/23/22 12/23/22 12/23/22 Range/Units 06:00 08:09 08:09 RBC 2.73 L (4.40-5.60) X 10*6/uL Hgb 7.6 L (13.0-17.0) d/dL Hct 23.6 L (39.6-50.0) % RDW 15.3 H (11.5-14.5) % Sodium 132 L (137-145) mmol/L BUN (9.0-27.0) mg/dL Glucose 128 H (70-110) mg/dL POC Glucose (mg/dL) 148 H (70-110) mg/dL Calcium 7.5 L (8.7-10.3) mg/dL 12/23/22 Range/Units 11:06 RBC (4.40-5.60) X 10*6/uL Hgb (13.0-17.0) d/dL Hct (39.6-50.0) % RDW (11.5-14.5) % Sodium (137-145) mmol/L BUN (9.0-27.0) mg/dL Glucose (70-110) mg/dL POC Glucose (mg/dL) 150 H (70-110) mg/dL Calcium (8.7-10.3) mg/dL Assessment and Plan (1) Diverticulitis of intestine, part unspecified, with perforation and abscess without bleeding Current Visit: No Status: Acute Code(s): K57.80 - DVTRCLI OF INTEST, PART UNSP, W PERF AND ABSCESS W/O BLEED SNOMED Code(s): 285180709 (2) Intra-abdominal abscess Current Visit: No Status: Acute Code(s): K65.1 - PERITONEAL ABSCESS SNOMED Code(s): 02302895 Plan: 1patient with intra-abdominal abscess from perforated diverticulitis in this patient with a previous laparoscopic drainage of the abscess and cultures were negative now presented back to the hospital with worsening abdominal pain and evidence of perforation diverticulitis with intra-abdominal abscess slightly decreased in size, with a previous laparoscopic drainage culture did not grow any bacteria 2- the patient did have a repeat a CT abdominal pelvis that was reviewed with the IR and cannot be drained CT-guided, Patient status post extensive surgery drainage of the abscess sigmoid colectomy resection of the small bowel fistula and primary anastomosis completed on 12/16/2022 abdominal cultures were obtained which are so far negative 3Patient seemed to be slowly clinical improvement the patient was to be from her white count is normal 4-patient to continue the Zosyn and continue supportive care Dictation was produced using [employer] dictation software. please excuse any grammatical, word or spelling errors. Time with Patient: Less than 30
[2022-12-23 17:15] LABS: Eosinophils # (M) 0.39 k/uL (0-0.7); Lymphocytes # (M) 1.96 k/uL (1.0-4.8); Monocytes # (M) 0.84 k/uL (0-1.0); Neutrophils # (M) 2.41 k/uL (1.3-7.7); Neutrophils % (M) 43 %; Nucleated Red Blood Cells 0 /100 WBC (0-0); Total Cells Counted 100
[2022-12-23 17:16] LABS: Polychromasia Present
[2022-12-24] MEDS: METOCLOPRAMIDE 5 MG/ML 2 ML VIAL IVP SCH ×5 (00:22→23:00)
[2022-12-24] MEDS: ACETAMINOPHEN TAB 500 MG TAB PO SCH ×5 (00:22→23:00)
[2022-12-24] MEDS: HYDROmorphone 1 MG/ML 1 ML SYRINGE IVP PRN ×7 (00:23→21:17)
[2022-12-24] MEDS: LORazepam 2 MG/ML INJ IV PRN ×4 (02:18→22:45)
[2022-12-24] MEDS: PIPERACILLIN-TAZOBACTAM 3.375 GM in SODIUM CHLORIDE 0.9% 100 ML IVPB SCH ×3 (04:00→21:18)
[2022-12-24] MEDS: LEVOTHYROXINE 100 MCG TAB PO SCH (06:07)
[2022-12-24] MEDS: INSULIN ASPART (NovoLOG) 100 UNIT/ML VIAL SQ SCH ×4 (06:47→21:19)
[2022-12-24 07:52] LABS: Basophils % (A) 1 %; Eosinophils # (A) 0.3 k/uL (0-0.7); Eosinophils % (A) 6 %; HCT 25.1 % (39.0-53.0); Hypochromasia Slight; Lymphocytes # (A) 1.9 k/uL (1.0-4.8); Lymphocytes % (A) 37 %; MCH 27.3 pg (25.0-35.0); MCHC 31.7 g/dL (31.0-37.0); MCV 86.1 fL (80.0-100.0); Mean Platelet Volume 7.7; Monocytes # (A) 0.7 k/uL (0-1.0); Monocytes % (A) 13 %; Neutrophils # (A) 2.1 k/uL (1.3-7.7); Neutrophils % (A) 41 %; Platelet Count 453 k/uL (150-450); RBC 2.92 m/uL (4.30-5.90); RDW 15.5 % (11.5-15.5); WBC 5.2 k/uL (3.8-10.6)
[2022-12-24 07:56] LABS: African American GFR (CKD) >90 (>60 ml/min/1.73 sqM); Anion Gap 8 mmol/L; Blood Urea Nitrogen 11 mg/dL (9-20); Calcium 7.9 mg/dL (8.4-10.2); Carbon Dioxide 23 mmol/L (22-30); Chloride 102 mmol/L (98-107); Glucose 97 mg/dL (74-99); Non-African American GFR(CKD) >90 (>60 ml/min/1.73 sqM); Potassium 4.2 mmol/L (3.5-5.1); Sodium 133 mmol/L (137-145)
[2022-12-24] MEDS: LACTATED RINGERS 1,000 ML IV SCH ×3 (08:17→22:31)
[2022-12-24 09:09] LABS: Eosinophils # (M) 0.26 k/uL (0-0.7); Lymphocytes # (M) 2.24 k/uL (1.0-4.8); Monocytes # (M) 0.62 k/uL (0-1.0); Neutrophils # (M) 2.08 k/uL (1.3-7.7); Neutrophils % (M) 40 %; Nucleated Red Blood Cells 0 /100 WBC (0-0); Total Cells Counted 100
[2022-12-24] MEDS: PANTOPRAZOLE 40 MG/10 ML VIAL IV SCH (09:23)
[2022-12-24] MEDS: ASPIRIN 81 MG PO SCH (09:24)
[2022-12-24] MEDS: METOPROLOL SUCCINATE (ER) 50 MG TAB.ER.24H PO SCH (09:24)
[2022-12-24] MEDS: GABAPENTIN 300 MG CAP PO SCH ×3 (09:24→21:19)
[2022-12-24] MEDS: lisinopriL 20 MG TAB PO SCH (09:24)
[2022-12-24] MEDS: hydrALAZINE HCL 25 MG TAB PO SCH ×2 (09:24→21:19)
--- NOTE | 2022-12-24 10:09 | P.PN ---
Subjective Progress Note Date: 12/24/22 Principal diagnosis: Diverticulitis Patient says he overall feeling gradually better. White blood cell count 5.2. He has had increased incisional drainage. No fevers. Objective - Vital Signs Vital signs: Vital Signs Temp 97.7 F 12/24/22 06:59 Pulse 84 12/24/22 06:59 Resp 17 12/24/22 06:59 BP 105/72 12/24/22 06:59 Pulse Ox 94 L 12/24/22 08:59 FiO2 21 12/21/22 08:38 Intake & Output 12/23/22 12/24/22 12/24/22 18:59 06:59 18:59 Intake Total 1593.75 Output Total 800 1470 Balance 793.75 -1470 Weight 136.078 kg Intake: Intake, IV Titration 893.75 Amount Mvi, Adult No.4 with Vit 893.75 K 10 ml Trace (Conc-1Ml/ Dose) 1 ml In Amino Acid 5%-D20w+Lytes*E* 1,000 ml @ 75 mls/hr IV .BY DURATION [facility] Rx#: [id number] Oral 700 Output: Drainage 20 Right Abdomen 20 Urine 800 1450 Other: Voiding Method Urinal Urinal - Exam Abdomen: Soft, nondistended, incision with slightly cloudy serosanguineous fluid coming from the supraumbilical incision and also the suprapubic aspect of the incision, ostomy pink and functioning, drain in place, mild tenderness - Labs CBC & Chem 7: 12/24/22 07:03 12/24/22 07:03 Labs: Abnormal Lab Results - Last 24 Hours (Table) 12/23/22 12/23/22 12/23/22 Range/Units 08:09 11:06 14:31 RBC 2.73 L 3.15 L (4.40-5.60) X 10*6/uL Hgb 7.6 L 9.1 L D (13.0-17.0) d/dL Hct 23.6 L 27.6 L (39.6-50.0) % RDW 15.3 H 15.6 H (11.5-14.5) % Plt Count (150-450) k/uL Sodium (137-145) mmol/L POC Glucose (mg/dL) 150 H (70-110) mg/dL Calcium (8.4-10.2) mg/dL 12/23/22 12/24/22 12/24/22 Range/Units 16:10 07:03 07:03 RBC 2.92 L (4.40-5.60) X 10*6/uL Hgb 8.0 L (13.0-17.0) d/dL Hct 25.1 L (39.6-50.0) % RDW (11.5-14.5) % Plt Count 453 H (150-450) k/uL Sodium 133 L (137-145) mmol/L POC Glucose (mg/dL) 151 H (70-110) mg/dL Calcium 7.9 L (8.4-10.2) mg/dL Assessment and Plan (1) Diverticulitis Narrative/Plan: Patient overall doing well. He does have 2 areas of cloudy drainage from the incision. 2 linsey removed at each site with evacuation of cloudy fluid. Packed with iodoform gauze. Continue daily dressing changes. Current Visit: Yes Status: Acute Code(s): K57.92 - DVTRCLI OF INTEST, PART UNSP, W/O PERF OR ABSCESS W/O BLEED SNOMED Code(s): 897801192
[2022-12-24 11:19] LABS: Glucose,Whole Blood 111 mg/dL (70-110)
--- NOTE | 2022-12-24 13:24 | P.PN ---
Subjective Progress Note Date: 12/24/22 Subjective: Seen and examined at bedside. No acute events overnight. Slowly advancing his diet. Pertinent positives and negatives as discussed above, a complete review of systems was performed and all other systems are negative. Vitals Signs Reviewed. General: non toxic, no distress, appears at stated age Derm: warm, dry Head: atraumatic, normocephalic, symmetric Eyes: EOMI, no lid lag, anicteric sclera Cardiovascular: S1S2 reg, no murmur Lungs: CTA bilateral, no rhonchi, no rales , no accessory muscle use Abdominal: no bowel sounds with midline surgical incision dressing c/d/i, no guarding, no appreciable organomegaly, colostomy intact, drain in place Ext: no gross muscle atrophy, no edema, no contractures Neuro: no focal neuro deficits Psych: Alert, oriented, appropriate affect Data Reviewed Today: Pertinent Labs: Hemoglobin 8, sodium 133, calcium 4.2, creatinine 0.69, blood sugars range between 97-151 Imaging: No new imaging Assessment and Plan: Acute blood loss anemia, hemoglobin stable Ileus Sepsis secondary to perforated sigmoid diverticulitis with abscess formation status post exploratory laparotomy with lysis of adhesions, sigmoid colectomy, drainage of pelvic abscess CAD status post stent Hypertension Dyslipidemia Type 2 diabetes Hypothyroidism Asthma exacerbation, resolved -Continue supportive care -Advancing diet slowly, on low fiber diet -TPN now discontinued -ID also following -Currently on Zosyn IV -Home medications reviewed, no changes -Continue sliding scale insulin before meals at bedtime Thank you for allowing us to participate in the care of this pleasant patient. Do not hesitate to contact us with questions. Someone can be reached from the [facility] [place] [facility] [place] group all hours of the day at [phone] or via [employer]. Objective - Vital Signs Vital signs: Vital Signs Temp 97.7 F 12/24/22 06:59 Pulse 84 12/24/22 06:59 Resp 17 12/24/22 06:59 BP 105/72 12/24/22 06:59 Pulse Ox 94 L 12/24/22 08:59 FiO2 21 12/21/22 08:38 Intake & Output 12/23/22 12/24/22 12/24/22 18:59 06:59 18:59 Intake Total 1593.75 Output Total 800 1470 700 Balance 793.75 -1470 -700 Weight 136.078 kg Intake: Intake, IV Titration 893.75 Amount Mvi, Adult No.4 with Vit 893.75 K 10 ml Trace (Conc-1Ml/ Dose) 1 ml In Amino Acid 5%-D20w+Lytes*E* 1,000 ml @ 75 mls/hr IV .BY DURATION [facility] Rx#: [id number] Oral 700 Output: Drainage 20 Right Abdomen 20 Urine 800 1450 700 Other: Voiding Method Urinal Urinal Urinal - Labs CBC & Chem 7: 12/24/22 07:03 12/24/22 07:03 Labs: Abnormal Lab Results - Last 24 Hours (Table) 12/23/22 12/23/22 12/24/22 Range/Units 14:31 16:10 07:03 RBC 3.15 L 2.92 L (4.30-5.90) m/uL Hgb 9.1 L D 8.0 L (13.0-17.5) gm/dL Hct 27.6 L 25.1 L (39.0-53.0) % RDW 15.6 H (11.5-15.5) % Plt Count 453 H (150-450) k/uL Sodium (137-145) mmol/L POC Glucose (mg/dL) 151 H (70-110) mg/dL Calcium (8.4-10.2) mg/dL 12/24/22 12/24/22 Range/Units 07:03 11:17 RBC (4.30-5.90) m/uL Hgb (13.0-17.5) gm/dL Hct (39.0-53.0) % RDW (11.5-15.5) % Plt Count (150-450) k/uL Sodium 133 L (137-145) mmol/L POC Glucose (mg/dL) 111 H (70-110) mg/dL Calcium 7.9 L (8.4-10.2) mg/dL
[2022-12-24 16:34] LABS: Glucose,Whole Blood 118 mg/dL (70-110)
--- NOTE | 2022-12-24 16:50 | P.PN ---
Subjective Progress Note Date: 12/24/22 Principal diagnosis: Perforated diverticulitis and intra-abdominal abscess Patient is a 57 year male with a recent admission to the hospital with perforated diverticulitis and abscess status post laparoscopic drainage culture were negative patient received 2 weeks of IV antibiotic in the hospital subsequent discharged on oral antibiotic and presented back to the hospital with worsening abdominal pain, patient did have CT of abdominal pelvis which did shows trace peritoneal and abscess.Patient is status post exploratory laparotomy with lysis of adhesion sigmoid colectomy excision of small bowel fistula x2 and small bowel resection along with primary anastomosis procedure was completed on 12/16/2022. On today's evaluation that is 12/24/2022 the patient remains to be afebrile, the patient is breathing comfortably on 2 L nasal cannula oxygen, the patient abdominal discomfort has decreased in intensity, the patient denies nausea or vomiting has been started on a clear liquid diet which the patient has been tolerating and did have some output in the colostomy Patient white count is 5.2 creatinine is 0.69,OR abdominal cultures so far negative. Objective - Vital Signs Vital signs: Vital Signs Temp 97.5 F L 12/24/22 13:04 Pulse 81 12/24/22 13:04 Resp 18 12/24/22 13:04 BP 111/68 12/24/22 13:04 Pulse Ox 95 12/24/22 13:04 FiO2 21 12/21/22 08:38 Intake & Output 12/23/22 12/24/22 12/24/22 18:59 06:59 18:59 Intake Total 1593.75 Output Total 800 1470 700 Balance 793.75 -1470 -700 Weight 136.078 kg Intake: Intake, IV Titration 893.75 Amount Mvi, Adult No.4 with Vit 893.75 K 10 ml Trace (Conc-1Ml/ Dose) 1 ml In Amino Acid 5%-D20w+Lytes*E* 1,000 ml @ 75 mls/hr IV .BY DURATION [facility] Rx#: [id number] Oral 700 Output: Drainage 20 Right Abdomen 20 Urine 800 1450 700 Other: Voiding Method Urinal Urinal Urinal - Exam GENERAL DESCRIPTION: Middle-age male lying in bed in no distress RESPIRATORY SYSTEM: Unlabored breathing , clear to auscultation anteriorly HEART: S1 S2 regular rate and rhythm , ABDOMEN: Soft , mild distention and tenderness EXTREMITIES: No edema feet - Labs CBC & Chem 7: 12/24/22 07:03 12/24/22 07:03 Labs: Abnormal Lab Results - Last 24 Hours (Table) 12/23/22 12/23/22 12/24/22 Range/Units 14:31 16:10 07:03 RBC 3.15 L 2.92 L (4.30-5.90) m/uL Hgb 9.1 L D 8.0 L (13.0-17.5) gm/dL Hct 27.6 L 25.1 L (39.0-53.0) % RDW 15.6 H (11.5-15.5) % Plt Count 453 H (150-450) k/uL Sodium (137-145) mmol/L POC Glucose (mg/dL) 151 H (70-110) mg/dL Calcium (8.4-10.2) mg/dL 12/24/22 12/24/22 Range/Units 07:03 11:17 RBC (4.30-5.90) m/uL Hgb (13.0-17.5) gm/dL Hct (39.0-53.0) % RDW (11.5-15.5) % Plt Count (150-450) k/uL Sodium 133 L (137-145) mmol/L POC Glucose (mg/dL) 111 H (70-110) mg/dL Calcium 7.9 L (8.4-10.2) mg/dL Assessment and Plan (1) Diverticulitis of intestine, part unspecified, with perforation and abscess without bleeding Current Visit: No Status: Acute Code(s): K57.80 - DVTRCLI OF INTEST, PART UNSP, W PERF AND ABSCESS W/O BLEED SNOMED Code(s): 495294518 (2) Intra-abdominal abscess Current Visit: No Status: Acute Code(s): K65.1 - PERITONEAL ABSCESS SNOMED Code(s): 14026091 Plan: 1patient with intra-abdominal abscess from perforated diverticulitis in this patient with a previous laparoscopic drainage of the abscess and cultures were negative now presented back to the hospital with worsening abdominal pain and evidence of perforation diverticulitis with intra-abdominal abscess slightly de creased in size, with a previous laparoscopic drainage culture did not grow any bacteria 2- the patient did have a repeat a CT abdominal pelvis that was reviewed with the IR and cannot be drained CT-guided, Patient status post extensive surgery drainage of the abscess sigmoid colectomy resection of the small bowel fistula and primary anastomosis completed on 12/16/2022 abdominal cultures were obtained which are so far negative 3Patient slowly clinical improvement the patient is afebrile and white count remains to be normal abdominal culture negative for any resistant pathogen 4-patient to continue the Zosyn and monitor clinical course closely Dictation was produced using [employer] dictation software. please excuse any grammatical, word or spelling errors. Time with Patient: Less than 30
[2022-12-25] MEDS: HYDROmorphone 1 MG/ML 1 ML SYRINGE IVP PRN ×6 (00:28→20:42)
[2022-12-25] MEDS: PIPERACILLIN-TAZOBACTAM 3.375 GM in SODIUM CHLORIDE 0.9% 100 ML IVPB SCH ×3 (03:39→20:44)
[2022-12-25] MEDS: LORazepam 2 MG/ML INJ IV PRN ×4 (04:55→22:03)
[2022-12-25] MEDS: METOCLOPRAMIDE 5 MG/ML 2 ML VIAL IVP SCH ×3 (06:20→17:34)
[2022-12-25] MEDS: ACETAMINOPHEN TAB 500 MG TAB PO SCH ×3 (06:20→17:34)
[2022-12-25] MEDS: LEVOTHYROXINE 100 MCG TAB PO SCH (06:21)
[2022-12-25] MEDS: INSULIN ASPART (NovoLOG) 100 UNIT/ML VIAL SQ SCH ×4 (06:26→20:41)
[2022-12-25 07:51] LABS: African American GFR (CKD) >90 (>60 ml/min/1.73 sqM); Anion Gap 5 mmol/L; Blood Urea Nitrogen 13 mg/dL (9-20); Carbon Dioxide 25 mmol/L (22-30); Chloride 101 mmol/L (98-107); Glucose 105 mg/dL (74-99); Non-African American GFR(CKD) >90 (>60 ml/min/1.73 sqM); Potassium 4.4 mmol/L (3.5-5.1); Sodium 131 mmol/L (137-145)
[2022-12-25] MEDS: LACTATED RINGERS 1,000 ML IV SCH ×3 (08:57→20:51)
[2022-12-25] MEDS: hydrALAZINE HCL 25 MG TAB PO SCH ×2 (09:18→20:43)
[2022-12-25] MEDS: ASPIRIN 81 MG PO SCH (09:18)
[2022-12-25] MEDS: lisinopriL 20 MG TAB PO SCH (09:18)
[2022-12-25] MEDS: METOPROLOL SUCCINATE (ER) 50 MG TAB.ER.24H PO SCH (09:19)
[2022-12-25] MEDS: GABAPENTIN 300 MG CAP PO SCH ×3 (09:19→20:43)
[2022-12-25] MEDS: PANTOPRAZOLE 40 MG/10 ML VIAL IV SCH (09:20)
--- NOTE | 2022-12-25 09:51 | P.PN ---
Subjective Progress Note Date: 12/25/22 Principal diagnosis: Diverticulitis Patient doing well today. Feels tired. He did not do much activity out of bed yesterday. Having some drainage from the lower wound site. He is afebrile. Objective - Vital Signs Vital signs: Vital Signs Temp 98.2 F 12/25/22 07:30 Pulse 80 12/25/22 07:30 Resp 18 12/25/22 07:30 BP 103/68 12/25/22 07:30 Pulse Ox 96 12/25/22 07:30 FiO2 21 12/21/22 08:38 Intake & Output 12/24/22 12/25/22 12/25/22 18:59 06:59 18:59 Output Total 700 600 Balance -700 -600 Output: Urine 700 600 Other: Voiding Method Urinal Urinal # Voids 3 - Exam Abdomen: Soft, nondistended, nontender, 2 wound sites with cloudy serosanguineous drainage - Labs CBC & Chem 7: 12/24/22 07:03 12/25/22 06:59 Labs: Abnormal Lab Results - Last 24 Hours (Table) 12/24/22 12/24/22 12/25/22 Range/Units 11:17 16:33 06:59 Sodium 131 L (137-145) mmol/L Glucose 105 H (74-99) mg/dL POC Glucose (mg/dL) 111 H 118 H (70-110) mg/dL Calcium 8.0 L (8.4-10.2) mg/dL Assessment and Plan (1) Diverticulitis Narrative/Plan: She seems a slightly better today. Increase activity today. May shower. Continue local wound care. Discussed with nursing staff. Binder will be cut to fit around the ostomy site. Current Visit: Yes Status: Acute Code(s): K57.92 - DVTRCLI OF INTEST, PART UNSP, W/O PERF OR ABSCESS W/O BLEED SNOMED Code(s): 355743799
--- NOTE | 2022-12-25 11:18 | P.PN ---
Subjective Progress Note Date: 12/25/22 Subjective: Seen and examined at bedside. No acute events overnight. Slowly advancing his diet. Pertinent positives and negatives as discussed above, a complete review of systems was performed and all other systems are negative. Vitals Signs Reviewed. General: non toxic, no distress, appears at stated age Derm: warm, dry Head: atraumatic, normocephalic, symmetric Eyes: EOMI, no lid lag, anicteric sclera Cardiovascular: S1S2 reg, no murmur Lungs: CTA bilateral, no rhonchi, no rales , no accessory muscle use Abdominal: no bowel sounds with midline surgical incision dressing c/d/i, no guarding, no appreciable organomegaly, colostomy intact, drain in place Ext: no gross muscle atrophy, no edema, no contractures Neuro: no focal neuro deficits Psych: Alert, oriented, appropriate affect Data Reviewed Today: Pertinent Labs: Hemoglobin sodium 131, potassium 4.4, creatinine 0.75, blood sugars range between 105-118 Imaging: No new imaging Assessment and Plan: Sepsis secondary to perforated sigmoid diverticulitis with abscess formation status post exploratory laparotomy with lysis of adhesions, sigmoid colectomy, drainage of pelvic abscess Acute blood loss anemia, hemoglobin stable Ileus resolving CAD status post stent Hypertension Dyslipidemia Type 2 diabetes Hypothyroidism Asthma exacerbation, resolved -Continue supportive care -Advancing diet slowly, on low fiber diet -ID also following -Currently on Zosyn IV -Home medications reviewed, no changes -Continue sliding scale insulin before meals at bedtime -Physical therapy following Thank you for allowing us to participate in the care of this pleasant patient. Do not hesitate to contact us with questions. Someone can be reached from the [facility] hospitalist group all hours of the day at [phone] or via [email or web address]. Objective - Vital Signs Vital signs: Vital Signs Temp 98.2 F 12/25/22 07:30 Pulse 80 12/25/22 07:30 Resp 18 12/25/22 07:30 BP 103/68 12/25/22 07:30 Pulse Ox 96 12/25/22 10:11 FiO2 21 12/25/22 10:11 Intake & Output 12/24/22 12/25/22 12/25/22 18:59 06:59 18:59 Output Total 700 600 Balance -700 -600 Output: Urine 700 600 Other: Voiding Method Urinal Urinal # Voids 3 - Labs CBC & Chem 7: 12/24/22 07:03 12/25/22 06:59 Labs: Abnormal Lab Results - Last 24 Hours (Table) 12/24/22 12/24/22 12/25/22 Range/Units 11:17 16:33 06:59 Sodium 131 L (137-145) mmol/L Glucose 105 H (74-99) mg/dL POC Glucose (mg/dL) 111 H 118 H (70-110) mg/dL Calcium 8.0 L (8.4-10.2) mg/dL
[2022-12-25 11:22] LABS: Glucose,Whole Blood 148 mg/dL (70-110)
--- NOTE | 2022-12-25 15:55 | P.PN ---
Subjective Progress Note Date: 12/25/22 Principal diagnosis: Perforated diverticulitis and intra-abdominal abscess Patient is a 57 year male with a recent admission to the hospital with perforated diverticulitis and abscess status post laparoscopic drainage culture were negative patient received 2 weeks of IV antibiotic in the hospital subsequent discharged on oral antibiotic and presented back to the hospital with worsening abdominal pain, patient did have CT of abdominal pelvis which did shows trace peritoneal and abscess.Patient is status post exploratory laparotomy with lysis of adhesion sigmoid colectomy excision of small bowel fistula x2 and small bowel resection along with primary anastomosis procedure was completed on 12/16/2022. On today's evaluation that is 12/25/2022, the patient remains to be afebrile patient is breathing comfortably on the 2 L nasal cannula oxygen denies any chest pain shortness of breath or cough has been complaining of mostly pain to the lower back as well as abdominal area has been tolerating his diet and did have output in his colostomy. Patient did have a white count of 5.2, creatinine 0.75 over abdominal cultures so far negative Objective - Vital Signs Vital signs: Vital Signs Temp 97.6 F 12/25/22 13:35 Pulse 84 12/25/22 13:35 Resp 18 12/25/22 13:35 BP 114/71 12/25/22 13:35 Pulse Ox 92 L 12/25/22 13:35 FiO2 21 12/25/22 10:11 Intake & Output 12/24/22 12/25/22 12/25/22 18:59 06:59 18:59 Output Total 700 600 40 Balance -700 -600 -40 Output: Drainage 40 Right Abdomen 40 Urine 700 600 Other: Voiding Method Urinal Urinal # Voids 3 - Exam GENERAL DESCRIPTION: Middle-age male lying in bed in no distress RESPIRATORY SYSTEM: Unlabored breathing , clear to auscultation anteriorly HEART: S1 S2 regular rate and rhythm , ABDOMEN: Soft , mild distention and tenderness EXTREMITIES: No edema feet - Labs CBC & Chem 7: 12/24/22 07:03 12/25/22 06:59 Labs: Abnormal Lab Results - Last 24 Hours (Table) 12/24/22 12/25/22 12/25/22 Range/Units 16:33 06:59 11:21 Sodium 131 L (137-145) mmol/L Glucose 105 H (74-99) mg/dL POC Glucose (mg/dL) 118 H 148 H (70-110) mg/dL Calcium 8.0 L (8.4-10.2) mg/dL Assessment and Plan (1) Diverticulitis of intestine, part unspecified, with perforation and abscess without bleeding Current Visit: No Status: Acute Code(s): K57.80 - DVTRCLI OF INTEST, PART UNSP, W PERF AND ABSCESS W/O BLEED SNOMED Code(s): 896308148 (2) Intra-abdominal abscess Current Visit: No Status: Acute Code(s): K65.1 - PERITONEAL ABSCESS SNOMED Code(s): 28694052 Plan: 1patient with intra-abdominal abscess from perforated diverticulitis in this patient with a previous laparoscopic drainage of the abscess and cultures were negative now presented back to the hospital with worsening abdominal pain and evidence of perforation diverticulitis with intra-abdominal abscess slightly decreased in size, with a previous laparoscopic drainage culture did not grow any bacteria 2- the patient did have a repeat a CT abdominal pelvis that was reviewed with the IR and cannot be drained CT-guided, Patient status post extensive surgery drainage of the abscess sigmoid colectomy resection of the small bowel fistula and primary anastomosis completed on 12/16/2022 abdominal cultures were obtained which are so far negative 3patient is afebrile patient white count has been normal abdominal cultures negative for any resistant pathogen. 4patient to continue Zosyn keeping in mind his complicated history and moderate medical course closely Dictation was produced using [employer] dictation software. please excuse any grammatical, word or spelling errors. Time with Patient: Less than 30
[2022-12-25 16:45] LABS: Glucose,Whole Blood 127 mg/dL (70-110)
[2022-12-26] MEDS: HYDROmorphone 1 MG/ML 1 ML SYRINGE IVP PRN ×8 (00:15→21:44)
[2022-12-26] MEDS: METOCLOPRAMIDE 5 MG/ML 2 ML VIAL IVP SCH ×4 (00:16→17:46)
[2022-12-26] MEDS: ACETAMINOPHEN TAB 500 MG TAB PO SCH ×4 (00:16→17:45)
[2022-12-26] MEDS: LACTATED RINGERS 1,000 ML IV SCH ×2 (01:58→11:47)
[2022-12-26] MEDS: LORazepam 2 MG/ML INJ IV PRN ×4 (02:00→23:22)
[2022-12-26] MEDS: PIPERACILLIN-TAZOBACTAM 3.375 GM in SODIUM CHLORIDE 0.9% 100 ML IVPB SCH ×3 (03:30→20:48)
[2022-12-26] MEDS: LEVOTHYROXINE 100 MCG TAB PO SCH (06:39)
[2022-12-26] MEDS: INSULIN ASPART (NovoLOG) 100 UNIT/ML VIAL SQ SCH ×4 (06:39→20:33)
[2022-12-26 07:43] LABS: ALT 28 U/L (4-49); AST 27 U/L (17-59); African American GFR (CKD) >90 (>60 ml/min/1.73 sqM); Albumin 2.7 g/dL (3.5-5.0); Albumin/Globulin Ratio 0.9; Alkaline Phosphatase 58 U/L (38-126); Anion Gap 7 mmol/L; Blood Urea Nitrogen 13 mg/dL (9-20); Calcium 8.1 mg/dL (8.4-10.2); Carbon Dioxide 26 mmol/L (22-30); Chloride 101 mmol/L (98-107); Globulin 3.1 g/dL; Glucose 105 mg/dL (74-99); Non-African American GFR(CKD) >90 (>60 ml/min/1.73 sqM); Potassium 4.6 mmol/L (3.5-5.1); Sodium 134 mmol/L (137-145); Total Bilirubin 0.3 mg/dL (0.2-1.3); Total Protein 5.8 g/dL (6.3-8.2)
[2022-12-26 09:33] LABS: Basophils % (A) 1 %; Eosinophils # (A) 0.3 k/uL (0-0.7); Eosinophils % (A) 5 %; HCT 25.4 % (39.0-53.0); HGB 8.3 gm/dL (13.0-17.5); Hypochromasia Slight; Lymphocytes # (A) 2.4 k/uL (1.0-4.8); Lymphocytes % (A) 40 %; MCH 28.1 pg (25.0-35.0); MCHC 32.6 g/dL (31.0-37.0); MCV 86.1 fL (80.0-100.0); Mean Platelet Volume 8.2; Monocytes # (A) 0.8 k/uL (0-1.0); Monocytes % (A) 14 %; Neutrophils # (A) 2.3 k/uL (1.3-7.7); Neutrophils % (A) 38 %; Platelet Count 549 k/uL (150-450); RBC 2.95 m/uL (4.30-5.90); RDW 15.3 % (11.5-15.5)
[2022-12-26] MEDS: hydrALAZINE HCL 25 MG TAB PO SCH ×2 (09:37→20:48)
[2022-12-26] MEDS: ASPIRIN 81 MG PO SCH (09:37)
[2022-12-26] MEDS: lisinopriL 20 MG TAB PO SCH (09:37)
[2022-12-26] MEDS: METOPROLOL SUCCINATE (ER) 50 MG TAB.ER.24H PO SCH (09:37)
[2022-12-26] MEDS: GABAPENTIN 300 MG CAP PO SCH ×3 (09:37→23:22)
[2022-12-26] MEDS: PANTOPRAZOLE 40 MG/10 ML VIAL IV SCH (09:39)
--- NOTE | 2022-12-26 10:35 | P.PN ---
Subjective Progress Note Date: 12/26/22 Subjective: Seen and examined at bedside. No acute events overnight. Slowly advancing his diet. Pertinent positives and negatives as discussed above, a complete review of systems was performed and all other systems are negative. Vitals Signs Reviewed. General: non toxic, no distress, appears at stated age Derm: warm, dry Head: atraumatic, normocephalic, symmetric Eyes: EOMI, no lid lag, anicteric sclera Cardiovascular: S1S2 reg, no murmur Lungs: CTA bilateral, no rhonchi, no rales , no accessory muscle use Abdominal: no bowel sounds with midline surgical incision dressing c/d/i, no guarding, no appreciable organomegaly, colostomy intact, drain in place Ext: no gross muscle atrophy, no edema, no contractures Neuro: no focal neuro deficits Psych: Alert, oriented, appropriate affect Data Reviewed Today: Pertinent Labs: Hemoglobin 8.3, sodium 134, creatinine 0.74, blood sugars range between 105-148 Imaging: No new imaging Assessment and Plan: Sepsis secondary to perforated sigmoid diverticulitis with abscess formation status post exploratory laparotomy with lysis of adhesions, sigmoid colectomy, drainage of pelvic abscess Acute blood loss anemia, hemoglobin stable and improving Ileus resolving History of CAD status post stent Hypertension Dyslipidemia Type 2 diabetes Hypothyroidism Asthma exacerbation, resolved -Continue supportive care -Advancing diet slowly, on low fiber diet -ID also following -Currently on Zosyn IV -Continue on lactated Ringer at 1 25 mL an hour until patient is able to increase oral intake -Continue sliding scale insulin before meals at bedtime, hold metformin -Continue home medications -On aspirin, statin -brillinta held, stent was placed over 1 year ago -Physical therapy following Thank you for allowing us to participate in the care of this pleasant patient. Do not hesitate to contact us with questions. Someone can be reached from the [facility] hospitalist group all hours of the day at [phone] or via [email or web address]. Objective - Vital Signs Vital signs: Vital Signs Temp 97.4 F L 12/26/22 07:14 Pulse 81 12/26/22 07:14 Resp 14 12/26/22 07:14 BP 106/65 12/26/22 07:14 Pulse Ox 93 L 12/26/22 07:14 FiO2 21 12/25/22 10:11 Intake & Output 12/25/22 12/26/2212/26/23 18:59 06:59 18:59 Output Total 40 575 500 Balance -40 -575 -500 Output: Drainage 40 75 Right Abdomen 40 75 Urine 500 500 Other: Voiding Method Toilet Urinal # Voids 3 - Labs CBC & Chem 7: 12/26/22 06:52 12/26/22 06:52 Labs: Abnormal Lab Results - Last 24 Hours (Table) 12/25/22 12/25/22 12/26/22 Range/Units 11:21 16:43 06:52 RBC (4.30-5.90) m/uL Hgb (13.0-17.5) gm/dL Hct (39.0-53.0) % Plt Count (150-450) k/uL Sodium 134 L (137-145) mmol/L Glucose 105 H (74-99) mg/dL POC Glucose (mg/dL) 148 H 127 H (70-110) mg/dL Calcium 8.1 L (8.4-10.2) mg/dL Total Protein 5.8 L (6.3-8.2) g/dL Albumin 2.7 L (3.5-5.0) g/dL 12/26/22 Range/Units 06:52 RBC 2.95 L (4.30-5.90) m/uL Hgb 8.3 L (13.0-17.5) gm/dL Hct 25.4 L (39.0-53.0) % Plt Count 549 H (150-450) k/uL Sodium (137-145) mmol/L Glucose (74-99) mg/dL POC Glucose (mg/dL) (70-110) mg/dL Calcium (8.4-10.2) mg/dL Total Protein (6.3-8.2) g/dL Albumin (3.5-5.0) g/dL
--- NOTE | 2022-12-26 13:51 | P.PN ---
Subjective Progress Note Date: 12/26/22 CHIEF COMPLAINT: Perforated diverticulitis with abscess HISTORY OF PRESENT ILLNESS: The patient is a 57-year-old -year-old male status post sigmoid colectomy with phlegmon for perforated diverticulitis, small bowel resection for small bowel fistula, 12/16/2022. Patient reports having stool through his ostomy. Patient's stoma is dark in color. He does complain of abdominal pain requiring the IV Dilaudid every 3 hours. Denies any nausea or vomiting. He has more pain with movement. Afebrile. WBC 6.0 hgb 8.3 platelets 549 Na 134 k 4.6 cr 0.74 PHYSICAL EXAM: VITAL SIGNS: Reviewed GENERAL: Well-developed in no acute distress. HEENT: No sclera icterus. Extraocular movements grossly intact. Moist buccal mucosa. Head is atraumatic, normocephalic. Hears conversational speech. No nasal drai nage. NECK: Supple without lymphadenopathy. CHEST: Non-labored respirations and equal bilateral excursions. CARDIOVASCULAR: Palpable 2+ radial pulses. ABDOMEN: Soft. Nondistended. Ostomy with dark stoma. Incision with purulent drainage and distal incision. MUSCULOSKELETAL: No clubbing or cyanosis. NEUROLOGIC: No focal or lateralizing signs. Cranial nerves II through XII grossly intact. PSYCH: Appropriate affect. Alert and oriented to person, place and time. SKIN: Well perfused. Good skin turgor. ASSESSMENT: 1. Perforated diverticulitis with abscess and phlegmon 2. Morbid obesity due to excess calories 3. Hypokalemia 4. Small bowel fistula status post resection 5. Postoperative Ileus expected outcome following surgery 6. Acute blood loss anemia 7. Abdominal incision infection PLAN: -Patient will require revision of his colostomy -Consult pain service for pain management -Add Toradol. Continue Tylenol and gabapentin -Continue local wound -Continue low fiber diet -Continue antibiotics -Encourage patient to increase activity level -Encourage patient to use incentive spirometer -DVT prophylaxis SCDs Physician Broiler Manager note has been reviewed by physician. Signing provider agrees with the documented findings, assessment, and plan of care. Objective - Vital Signs Vital signs: Vital Signs Temp 97.4 F L 12/26/22 07:14 Pulse 81 12/26/22 07:14 Resp 14 12/26/22 07:14 BP 106/65 12/26/22 07:14 Pulse Ox 93 L 12/26/22 07:14 FiO2 21 12/25/22 10:11 Intake & Output 12/25/22 12/26/22 12/26/22 18:59 06:59 18:59 Output Total 40 575 500 Balance -40 -575 -500 Weight 136.078 kg Output: Drainage 40 75 Right Abdomen 40 75 Urine 500 500 Other: Voiding Method Toilet Urinal # Voids 3 - Labs CBC & Chem 7: 12/26/22 06:52 12/26/22 06:52 Labs: Abnormal Lab Results - Last 24 Hours (Table) 12/25/22 12/26/22 12/26/22 Range/Units 16:43 06:52 06:52 RBC 2.95 L (4.30-5.90) m/uL Hgb 8.3 L (13.0-17.5) gm/dL Hct 25.4 L (39.0-53.0) % Plt Count 549 H (150-450) k/uL Sodium 134 L (137-145) mmol/L Glucose 105 H (74-99) mg/dL POC Glucose (mg/dL) 127 H (70-110) mg/dL Calcium 8.1 L (8.4-10.2) mg/dL Total Protein 5.8 L (6.3-8.2) g/dL Albumin 2.7 L (3.5-5.0) g/dL
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
[2022-12-26] MEDS: KETOROLAC 15 MG/ML 1 ML VIAL IVP SCH ×2 (15:14→18:20)
--- NOTE | 2022-12-26 18:00 | P.PN ---
Subjective Progress Note Date: 12/26/22 Principal diagnosis: Perforated diverticulitis and intra-abdominal abscess Patient is a 57 year male with a recent admission to the hospital with perforated diverticulitis and abscess status post laparoscopic drainage culture were negative patient received 2 weeks of IV antibiotic in the hospital subsequent discharged on oral antibiotic and presented back to the hospital with worsening abdominal pain, patient did have CT of abdominal pelvis which did shows trace peritoneal and abscess.Patient is status post exploratory laparotomy with lysis of adhesion sigmoid colectomy excision of small bowel fistula x2 and small bowel resection along with primary anastomosis procedure was completed on 12/16/2022. On today's evaluation that is 12/26/2022, the patient continues to be afebrile patient is breathing comfortably on 2 L nasal cannula oxygen , the patient denies any chest pain shortness of breath or cough has been complaining of mostly pain to the lower back as well as abdominal area has been tolerating his diet and did have output in his colostomy. Patient did have a white count of 6.0, creatinine 0.74 ,OR abdominal cultures so far negative Objective - Vital Signs Vital signs: Vital Signs Temp 97.4 F L 12/26/22 07:14 Pulse 81 12/26/22 07:14 Resp 14 12/26/22 07:14 BP 106/65 12/26/22 07:14 Pulse Ox 93 L 12/26/22 07:14 FiO2 21 12/25/22 10:11 Intake & Output 12/25/22 12/26/22 12/26/22 18:59 06:59 18:59 Output Total 40 575 500 Balance -40 -575 -500 Output: Drainage 40 75 Right Abdomen 40 75 Urine 500 500 Other: Voiding Method Toilet Urinal # Voids 3 - Exam GENERAL DESCRIPTION: Middle-age male lying in bed in no distress RESPIRATORY SYSTEM: Unlabored breathing , clear to auscultation anteriorly HEART: S1 S2 regular rate and rhythm , ABDOMEN: Soft , mild distention and tenderness EXTREMITIES: No edema feet - Labs CBC & Chem 7: 12/26/22 06:52 12/26/22 06:52 Labs: Abnormal Lab Results - Last 24 Hours (Table) 12/25/22 12/26/22 12/26/22 Range/Units 16:43 06:52 06:52 RBC 2.95 L (4.30-5.90) m/uL Hgb 8.3 L (13.0-17.5) gm/dL Hct 25.4 L (39.0-53.0) % Plt Count 549 H (150-450) k/uL Sodium 134 L (137-145) mmol/L Glucose 105 H (74-99) mg/dL POC Glucose (mg/dL) 127 H (70-110) mg/dL Calcium 8.1 L (8.4-10.2) mg/dL Total Protein 5.8 L (6.3-8.2) g/dL Albumin 2.7 L (3.5-5.0) g/dL Assessment and Plan (1) Diverticulitis of intestine, part unspecified, with perforation and abscess without bleeding Current Visit: No Status: Acute Code(s): K57.80 - DVTRCLI OF INTEST, PART UNSP, W PERF AND ABSCESS W/O BLEED SNOMED Code(s): 141895501 (2) Intra-abdominal abscess Current Visit: No Status: Acute Code(s): K65.1 - PERITONEAL ABSCESS SNOMED Code(s): 82772993 Plan: 1patient with intra-abdominal abscess from perforated diverticulitis in this patient with a previous laparoscopic drainage of the abscess and cultures were negative now presented back to the hospital with worsening abdominal pain and evidence of perforation diverticulitis with intra-abdominal abscess slightly decreased in size, with a previous laparoscopic drainage culture did not grow any bacteria 2- the patient did have a repeat a CT abdominal pelvis that was reviewed with the IR and cannot be drained CT-guided, Patient status post extensive surgery drainage of the abscess sigmoid colectomy resection of the small bowel fistula and primary anastomosis completed on 12/16/2022 abdominal cultures were obtained which are so far negative 3patient is afebrile patient white count has been normal abdominal cultures negative for any resistant pathogen. 4patient is slowly clinically improving and we will continue Zosyn while inpatient and monitor clinical course closely Dictation was produced using [employer] dictation software. please excuse any grammatical, word or spelling errors. Time with Patient: Less than 30
[2022-12-26 20:28] LABS: Glucose,Whole Blood 134 mg/dL (70-110)
[2022-12-26] MEDS: ATORVASTATIN 40 MG TAB PO SCH (20:48)
[2022-12-27] MEDS: LACTATED RINGERS 1,000 ML IV SCH ×4 (00:27→17:11)
[2022-12-27] MEDS: HYDROmorphone 1 MG/ML 1 ML SYRINGE IVP PRN ×7 (00:33→20:00)
[2022-12-27] MEDS: ACETAMINOPHEN TAB 500 MG TAB PO SCH ×4 (00:34→17:10)
[2022-12-27] MEDS: KETOROLAC 15 MG/ML 1 ML VIAL IVP SCH ×4 (00:35→17:10)
[2022-12-27] MEDS: METOCLOPRAMIDE 5 MG/ML 2 ML VIAL IVP SCH ×4 (00:36→17:11)
[2022-12-27] MEDS: PIPERACILLIN-TAZOBACTAM 3.375 GM in SODIUM CHLORIDE 0.9% 100 ML IVPB SCH ×3 (03:29→19:59)
[2022-12-27] MEDS: INSULIN ASPART (NovoLOG) 100 UNIT/ML VIAL SQ SCH ×4 (06:40→20:03)
[2022-12-27] MEDS: LEVOTHYROXINE 100 MCG TAB PO SCH (06:41)
[2022-12-27] MEDS: ASPIRIN 81 MG PO SCH (08:49)
[2022-12-27] MEDS: METOPROLOL SUCCINATE (ER) 50 MG TAB.ER.24H PO SCH (08:49)
[2022-12-27] MEDS: GABAPENTIN 300 MG CAP PO SCH ×3 (08:49→21:40)
[2022-12-27] MEDS: hydrALAZINE HCL 25 MG TAB PO SCH ×2 (08:50→20:02)
[2022-12-27] MEDS: lisinopriL 20 MG TAB PO SCH (08:50)
[2022-12-27] MEDS: PANTOPRAZOLE 40 MG/10 ML VIAL IV SCH (08:50)
[2022-12-27] MEDS: HYDROcodone/APAP 10-325MG 1 EACH TAB PO PRN (08:54)
[2022-12-27] MEDS: LORazepam 2 MG/ML INJ IV PRN ×3 (09:04→22:49)
[2022-12-27 11:40] LABS: Glucose,Whole Blood 114 mg/dL (70-110)
--- NOTE | 2022-12-27 12:04 | P.PN ---
Subjective Progress Note Date: 12/27/22 CHIEF COMPLAINT: Perforated diverticulitis with abscess HISTORY OF PRESENT ILLNESS: The patient is a 57-year-old -year-old male status post sigmoid colectomy with phlegmon for perforated diverticulitis, small bowel resection for small bowel fistula, 12/16/2022. Patient's ostomy is functioning. He has been seen by pain service they've added [place]. He does report the pain is better controlled today. Denies any nausea or vomiting. Tolerating diet but still has decreased appetite. Afebrile. No new labs PHYSICAL EXAM: VITAL SIGNS: Reviewed GENERAL: Well-developed in no acute distress. HEENT: No sclera icterus. Extraocular movements grossly intact. Moist buccal mucosa. Head is atraumatic, normocephalic. Hears conversational speech. No nasal drainage. NECK: Supple without lymphadenopathy. CHEST: Non-labored respirations and equal bilateral excursions. CARDIOVASCULAR: Palpable 2+ radial pulses. ABDOMEN: Soft. Nondistended. Ostomy with bag full of stool. Unable to see stoma at this time. Incision with purulent drainage admitted incision and distal incision. MUSCULOSKELETAL: No clubbing or cyanosis. NEUROLOGIC: No focal or lateralizing signs. Cranial nerves II through XII grossly intact. PSYCH: Appropriate affect. Alert and oriented to person, place and time. SKIN: Well perfused. Good skin turgor. ASSESSMENT: 1. Perforated diverticulitis with abscess and phlegmon 2. Morbid obesity due to excess calories 3. Hypokalemia 4. Small bowel fistula status post resection 5. Postoperative Ileus expected outcome following surgery 6. Acute blood loss anemia 7. Abdominal incision infection PLAN: -Patient will require revision of his colostomy for ischemic stoma -Continue pain management -Continue local wound -Continue low fiber diet -Continue antibiotics -Encourage patient to increase activity level -Encourage patient to use incentive spirometer -DVT prophylaxis SCDs Physician Dietitian Consultant note has been reviewed by physician. Signing provider agrees with the documented findings, assessment, and plan of care. Objective - Vital Signs Vital signs: Vital Signs Temp 97.8 F 12/27/22 07:07 Pulse 68 12/27/22 07:07 Resp 16 12/27/22 07:07 BP 107/69 12/27/22 07:07 Pulse Ox 97 12/27/22 07:07 FiO2 21 12/25/22 10:11 Intake & Output 12/26/22 12/27/22 12/27/22 18:59 06:59 18:59 Intake Total 1080 Output Total 1000 Balance 80 Weight 136.078 kg 131.542 kg Intake: Oral 1080 Output: Urine 1000 Other: Voiding Method Toilet Toilet Urinal Urinal - Labs CBC & Chem 7: 12/26/22 06:52 12/26/22 06:52 Labs: Abnormal Lab Results - Last 24 Hours (Table) 12/26/22 12/27/22 Range/Units 20:27 11:39 POC Glucose (mg/dL) 134 H 114 H (70-110) mg/dL
--- NOTE | 2022-12-27 16:01 | P.PN ---
Subjective Progress Note Date: 12/27/22 Patient is a 57-year-old male with history of hypertension, dyslipidemia, CAD status post stent, diabetes, hypothyroidism, asthma presenting with worsening lower abdomen pain. Patient was recently admitted for perforated acute sigmoid diverticulitis with abscess, underwent robotic lysis of adhesions, abscess not drained. Patient was discharged home with antibiotics. [facility] was consulted for medical management. In the ED, temperature was 99, pulse 98, respiratory rate 18, blood pressure 127/76, saturating at 96% on room air. Initial WBC was 14.1, now 8.5. Sodium 137, potassium 4.4, creatinine 0.88, lipase 41. 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 12/15 Patient was seen and examined. No acute events overnight. Pain well controlled on Dialudid TRUCK GUARD pump. Plans for surgery on Monday. INR is 1.04. [id number] glucose ranging from 112-134 over the past 24 hours. 12/16 Patient was seen and examined. Plans for open colectomy with ostomy with Dr. Zamorano today. He continues to report abdominal pain controlled with Dilaudid TRUCK GUARD pump. Had a bowel movement this morning. CBC shows hemoglobin 9.5. BMP shows < 3.5 and Ca of 8.6. Echocardiogram was done which shows EF 50-55%. 12/17 Patient was seen and examined. He underwent exploratory laparotomy with lysis of adhesions, sigmoid colectomy, drainage of pelvic abscess. He reports uncontrollable pain in his abdomen. No bowel movement since surgery not passing gas. Currently with Rick catheter. CBC shows hemoglobin of 10.8. BMP shows sodium of 135, BUN 6, glucose 126 and calcium 8. 12/18 Patient was seen and examined. He reports 9/10 severity abdominal pain. TRUCK GUARD pump discontinued yesterday for IV Toradol and Dilaudid as needed. He reports bilious nausea and vomiting. No bowel movement, not passing gas. No stool in ostomy. CBC shows WBC count of 11.1 and hemoglobin 9.5 along with platelet count of 458. BMP shows sodium 135 and glucose of 138, calcium of 8.2. 12/19 Patient was seen and examined. KUB done yesterday confirming ileus. He reports multiple episode of N/V since yesterday. Abdominal pain is well controlled on current pain medications. Currently with NG tube draining over 3L bilious material. Started on Reglan 10 mg IV Q6H. CBC shows Hg 7.5. BMP shows bicarb 31, glucose 133, Ca 8.2, albumin 2.6. 12/20 Patient was seen and examined. Abdominal pain well controlled. Has had output out of the ostomy. Patient will require revision of his colostomy for ischemic stoma per surgery. Ileus has resolved. General: non toxic, no distress, appears at stated age Derm: warm, dry Head: atraumatic, normocephalic, symmetric, NG tube to suction Eyes: EOMI, no lid lag, anicteric sclera Cardiovascular: S1S2 reg, no murmur Lungs: CTA bilateral, no rhonchi, no rales , no accessory muscle use Abdominal: no bowel sounds with midline surgical incision dressing c/d/i, no guarding, no appreciable organomegaly, colostomy intact Ext: no gross muscle atrophy, no edema, no contractures Neuro: no focal neuro deficits Psych: Alert, oriented, appropriate affect Acute blood loss anemia Sepsis secondary to perforated sigmoid diverticulitis with abscess formation status post exploratory laparotomy with lysis of adhesions, sigmoid colectomy, drainage of pelvic abscess CAD status post stent Hypertension Dyslipidemia Type 2 diabetes Hypothyroidism Asthma exacerbation Resolved: Ileus Based on my assessment of this patient, this patient meets a high complexity level of care. Patient has an acute diagnosis of sepsis secondary to perforated sigmoid diver ticulitis with abscess formation that poses a threat to life or bodily function. Acute blood loss anemia: Hg 8.3. Expected result of surgery. Transfuse if Hg < 7. Repeat CBC tomorrow morning. Sepsis secondary to perforated sigmoid diverticulitis with abscess formation: Continue Zosyn 3.375g IV Q8H. Low fiber diet and advance as tolerated. TRUCK GUARD pain pump discontinued and patient started on PRN Dilaudid and Toradol, [place]. Continue LR at 125 cc/hr. Blood culture negative. Telemetry monitoring. Surgery on board. Exploratory laparotomy with lysis of adhesions, sigmoid colectomy, drainage of pelvic abscess done on 12/16. Patient will require revision of his colostomy for ischemic stoma per surgery. CAD status post stent: Continue ASA 81 mg PO QD. Continue Brilinta with OK with surgery. Continue Metoprolol 50 mg PO QD. Continue Crestor when OK with surgery. Hypertension: BP 108/69. Continue Metoprolol as above. Continue Hydralazine 25 mg PO BID and Lisinopril 40 mg PO QD. Type 2 diabetes: Insulin sliding scale. Accuchecks ACHS. Hypoglycemic precautions. Hypothyroidism: Continue Synthroid 100 mcg PO QD. Asthma : Albuterol inhaler PRN for SOB/wheezing. I have reviewed the following leadership development consultant notes: Surgery and Pain management note. I have reviewed the results of the following tests: I have ordered the following tests: CBC, BMP. I have discussed the care of this patient with the following independent historian: I have independently interpreted the following test below: I have discussed the management of this patient with the following physician: This patient has a high risk of morbidity due to the following reasons: Objective - Vital Signs Vital signs: Vital Signs Temp 98.5 F 12/27/22 14:00 Pulse 81 12/27/22 14:00 Resp 16 12/27/22 14:00 BP 108/69 12/27/22 14:00 Pulse Ox 95 12/27/22 14:00 FiO2 21 12/25/22 10:11 Intake & Output 12/26/22 12/27/22 12/27/22 18:59 06:59 18:59 Intake Total 1080 100 Output Total 1000 10 Balance 80 90 Weight 136.078 kg 131.542 kg Intake: Intake, IV Titration 100 Amount Piperacillin-Tazobactam 3 100 .375 gm In Sodium Chloride 0.9% 100 ml @ 25 mls/hr IVPB Q8H [facility] Rx#: [id number] Oral 1080 Output: Drainage 10 Right Abdomen 10 Urine 1000 Other: Voiding Method Toilet Toilet Urinal Urinal - Labs CBC & Chem 7: 12/26/22 06:52 12/26/22 06:52 Labs: Abnormal Lab Results - Last 24 Hours (Table) 12/26/22 12/27/22 Range/Units 20:27 11:39 POC Glucose (mg/dL) 134 H 114 H (70-110) mg/dL
[2022-12-27] MEDS: ATORVASTATIN 40 MG TAB PO SCH (20:01)
[2022-12-28] MEDS: HYDROmorphone 1 MG/ML 1 ML SYRINGE IVP PRN ×6 (00:12→20:23)
[2022-12-28] MEDS: KETOROLAC 15 MG/ML 1 ML VIAL IVP SCH ×4 (00:14→17:57)
[2022-12-28] MEDS: METOCLOPRAMIDE 5 MG/ML 2 ML VIAL IVP SCH ×4 (00:14→17:56)
[2022-12-28] MEDS: ACETAMINOPHEN TAB 500 MG TAB PO SCH ×4 (00:15→17:57)
[2022-12-28] MEDS: PIPERACILLIN-TAZOBACTAM 3.375 GM in SODIUM CHLORIDE 0.9% 100 ML IVPB SCH ×3 (03:46→20:22)
[2022-12-28] MEDS: LORazepam 2 MG/ML INJ IV PRN ×4 (05:23→22:23)
[2022-12-28] MEDS: LEVOTHYROXINE 100 MCG TAB PO SCH (05:26)
[2022-12-28] MEDS: INSULIN ASPART (NovoLOG) 100 UNIT/ML VIAL SQ SCH ×4 (06:49→20:33)
[2022-12-28] MEDS: LACTATED RINGERS 1,000 ML IV SCH ×3 (06:51→17:58)
[2022-12-28] MEDS: ASPIRIN 81 MG PO SCH (08:16)
[2022-12-28] MEDS: lisinopriL 20 MG TAB PO SCH (08:16)
[2022-12-28] MEDS: hydrALAZINE HCL 25 MG TAB PO SCH ×2 (08:16→20:23)
[2022-12-28] MEDS: METOPROLOL SUCCINATE (ER) 50 MG TAB.ER.24H PO SCH (08:16)
[2022-12-28] MEDS: PANTOPRAZOLE 40 MG/10 ML VIAL IV SCH (08:16)
[2022-12-28] MEDS: GABAPENTIN 300 MG CAP PO SCH ×3 (08:16→22:23)
[2022-12-28 10:09] LABS: Glucose,Whole Blood 102 mg/dL (70-110)
[2022-12-28 10:57] LABS: HCT 25.9 % (39.0-53.0); HGB 8.3 gm/dL (13.0-17.5); Hypochromasia Slight; MCH 27.4 pg (25.0-35.0); MCHC 31.9 g/dL (31.0-37.0); Mean Platelet Volume 7.9; Platelet Count 681 k/uL (150-450); RBC 3.01 m/uL (4.30-5.90); RDW 15.4 % (11.5-15.5)
--- NOTE | 2022-12-28 11:12 | P.PN ---
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 Patient's ostomy is functioning. There are concerns for possible ischemic stoma. Per nurses picture from yesterday the stoma is grayish in color. Patient's stoma is currently covered with stool. Pain is better controlled today. Denies any nausea vomiting. Afebrile. WBC 6.0 hgb 8.3 PHYSICAL EXAM: VITAL SIGNS: Reviewed GENERAL: Well-developed in no acute distress. HEENT: No sclera icterus. Extraocular movements grossly intact. Moist buccal mucosa. Head is atraumatic, normocephalic. Hears conversational speech. No nasal angela inage. NECK: Supple without lymphadenopathy. CHEST: Non-labored respirations and equal bilateral excursions. CARDIOVASCULAR: Palpable 2+ radial pulses. ABDOMEN: Soft. Nondistended. Ostomy with bag full of stool. Unable to see stoma at this time. Incisional dressing clean dry and intact MUSCULOSKELETAL: No clubbing or cyanosis. NEUROLOGIC: No focal or lateralizing signs. Cranial nerves II through XII grossly intact. PSYCH: Appropriate affect. Alert and oriented to person, place and time. SKIN: Well perfused. Good skin turgor. ASSESSMENT: 1. Perforated diverticulitis with abscess and phlegmon 2. Morbid obesity due to excess calories 3. Hypokalemia 4. Small bowel fistula status post resection 5. Postoperative Ileus expected outcome following surgery 6. Acute blood loss anemia 7. Abdominal incision infection PLAN: -Patient will require revision of his colostomy for ischemic stoma -Continue pain management -Continue local wound -Continue low fiber diet -Continue antibiotics -Encourage patient to increase activity level -Encourage patient to use incentive spirometer -DVT prophylaxis SCDs Physician Rn School note has been reviewed by physician. Signing provider agrees with the documented findings, assessment, and plan of care. Objective - Vital Signs Vital signs: Vital Signs Temp 97.4 F L 12/28/22 08:00 Pulse 68 12/28/22 08:00 Resp 16 12/28/22 08:00 BP 131/85 12/28/22 08:00 Pulse Ox 95 12/28/22 08:00 FiO2 21 12/25/22 10:11 Intake & Output 12/27/22 12/28/22 12/28/22 18:59 06:59 18:59 Intake Total 100 Output Total 10 860 500 Balance 90 -860 -500 Weight 131.542 kg Intake: Intake, IV Titration 100 Amount Piperacillin-Tazobactam 3 100 .375 gm In Sodium Chloride 0.9% 100 ml @ 25 mls/hr IVPB Q8H [facility] Rx#: [id number] Output: Drainage 10 35 Right Abdomen 10 35 Urine 825 500 Other: Voiding Method Toilet Urinal # Voids 3 - Labs CBC & Chem 7: 12/28/22 10:27 12/26/22 06:52 Labs: Abnormal Lab Results - Last 24 Hours (Table) 12/27/22 12/28/22 Range/Units 11:39 10:27 RBC 3.01 L (4.30-5.90) m/uL Hgb 8.3 L (13.0-17.5) gm/dL Hct 25.9 L (39.0-53.0) % Plt Count 681 H (150-450) k/uL POC Glucose (mg/dL) 114 H (70-110) mg/dL
--- NOTE | 2022-12-28 12:13 | P.PN ---
Subjective Progress Note Date: 12/28/22 Patient is a 57-year-old male with history of hypertension, dyslipidemia, CAD status post stent, diabetes, hypothyroidism, asthma presenting with worsening lower abdomen pain. Patient was recently admitted for perforated acute sigmoid diverticulitis with abscess, underwent robotic lysis of adhesions, abscess not drained. Patient was discharged home with antibiotics. [facility] was consulted for medical management. In the ED, temperature was 99, pulse 98, respiratory rate 18, blood pressure 127/76, saturating at 96% on room air. Initial WBC was 14.1, now 8.5. Sodium 137, potassium 4.4, creatinine 0.88, lipase 41. 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 12/15 Patient was seen and examined. No acute events overnight. Pain well controlled on Dialudid LATHMAKER pump. Plans for surgery on Monday. INR is 1.04. [id number] glucose ranging from 112-134 over the past 24 hours. 12/16 Patient was seen and examined. Plans for open colectomy with ostomy with Dr. Zamorano today. He continues to report abdominal pain controlled with Dilaudid LATHMAKER pump. Had a bowel movement this morning. CBC shows hemoglobin 9.5. BMP shows < 3.5 and Ca of 8.6. Echocardiogram was done which shows EF 50-55%. 12/17 Patient was seen and examined. He underwent exploratory laparotomy with lysis of adhesions, sigmoid colectomy, drainage of pelvic abscess. He reports uncontrollable pain in his abdomen. No bowel movement since surgery not passing gas. Currently with Rick catheter. CBC shows hemoglobin of 10.8. BMP shows sodium of 135, BUN 6, glucose 126 and calcium 8. 12/18 Patient was seen and examined. He reports 9/10 severity abdominal pain. LATHMAKER pump discontinued yesterday for IV Toradol and Dilaudid as needed. He reports bilious nausea and vomiting. No bowel movement, not passing gas. No stool in ostomy. CBC shows WBC count of 11.1 and hemoglobin 9.5 along with platelet count of 458. BMP shows sodium 135 and glucose of 138, calcium of 8.2. 12/19 Patient was seen and examined. KUB done yesterday confirming ileus. He reports multiple episode of N/V since yesterday. Abdominal pain is well controlled on current pain medications. Currently with NG tube draining over 3L bilious material. Started on Reglan 10 mg IV Q6H. CBC shows Hg 7.5. BMP shows bicarb 31, glucose 133, Ca 8.2, albumin 2.6. 12/27 Patient was seen and examined. Abdominal pain well controlled. Has had output out of the ostomy. Patient will require revision of his colostomy for ischemic stoma per surgery. Ileus has resolved. 12/28 Patient was seen and examined. No acute events overnight. Plans for revision of colostomy. He has no complaints. CBC shows Hg 8.3, Plt 681. General: non toxic, no distress, appears at stated age Derm: warm, dry Head: atraumatic, normocephalic, symmetric Eyes: EOMI, no lid lag, anicteric sclera Cardiovascular: S1S2 reg, no murmur Lungs: CTA bilateral, no rhonchi, no rales , no accessory muscle use Abdominal: no bowel sounds with midline surgical incision dressing c/d/i, no guarding, no appreciable organomegaly, colostomy intact Ext: no gross muscle atrophy, no edema, no contractures Neuro: no focal neuro deficits Psych: Alert, oriented, appropriate affect Acute blood loss anemia Sepsis secondary to perforated sigmoid diverticulitis with abscess formation status post exploratory laparotomy with lysis of adhesions, sigmoid colectomy, drainage of pelvic abscess CAD status post stent Hypertension Dyslipidemia Type 2 diabetes Hypothyroidism Asthma exacerbation Resolved: Ileus Based on my assessment of this patient, this patient meets a high complexity level of care. Patient has an acute diagnosis of sepsis secondary to perforated sigmoid diverticulitis with abscess formation that poses a threat to life or bodily func tion. Acute blood loss anemia: Hg 8.3. Expected result of surgery. Transfuse if Hg < 7. Repeat CBC tomorrow morning. Sepsis secondary to perforated sigmoid diverticulitis with abscess formation: Continue Zosyn 3.375g IV Q8H. Low fiber diet and advance as tolerated. LATHMAKER pain pump discontinued and patient started on PRN Dilaudid and Toradol, [place]. Continue LR at 125 cc/hr. Blood culture negative. Telemetry monitoring. Surgery on board. Exploratory laparotomy with lysis of adhesions, sigmoid colectomy, drainage of pelvic abscess done on 12/16. Patient will require revision of his colostomy for ischemic stoma per surgery. CAD status post stent: Continue ASA 81 mg PO QD. Continue Brilinta with OK with surgery. Continue Metoprolol 50 mg PO QD. Continue Crestor when OK with surgery. Hypertension: BP 108/69. Continue Metoprolol as above. Continue Hydralazine 25 mg PO BID and Lisinopril 40 mg PO QD. Type 2 diabetes: Insulin sliding scale. Accuchecks ACHS. Hypoglycemic precautions. Hypothyroidism: Continue Synthroid 100 mcg PO QD. Asthma : Albuterol inhaler PRN for SOB/wheezing. I have reviewed the following communications consultant notes: Surgery note. I have reviewed the results of the following tests: I have ordered the following tests: CBC. I have discussed the care of this patient with the following independent historian: I have independently interpreted the following test below: I have discussed the management of this patient with the following physician: This patient has a high risk of morbidity due to the following reasons: Objective - Vital Signs Vital signs: Vital Signs Temp 97.4 F L 12/28/22 08:00 Pulse 68 12/28/22 08:00 Resp 16 12/28/22 08:00 BP 131/85 12/28/22 08:00 Pulse Ox 95 12/28/22 08:00 FiO2 21 12/25/22 10:11 Intake & Output 12/27/22 12/28/22 12/28/22 18:59 06:59 18:59 Intake Total 100 Output Total 10 860 500 Balance 90 -860 -500 Weight 131.542 kg Intake: Intake, IV Titration 100 Amount Piperacillin-Tazobactam 3 100 .375 gm In Sodium Chloride 0.9% 100 ml @ 25 mls/hr IVPB Q8H [facility] Rx#: [id number] Output: Drainage 10 35 Right Abdomen 10 35 Urine 825 500 Other: Voiding Method Toilet Urinal # Voids 3 - Labs CBC & Chem 7: 12/28/22 10:27 12/26/22 06:52 Labs: Abnormal Lab Results - Last 24 Hours (Table) 12/28/22 Range/Units 10:27 RBC 3.01 L (4.30-5.90) m/uL Hgb 8.3 L (13.0-17.5) gm/dL Hct 25.9 L (39.0-53.0) % Plt Count 681 H (150-450) k/uL
--- NOTE | 2022-12-28 12:41 | P.PN ---
Subjective Progress Note Date: 12/27/22 Principal diagnosis: Perforated diverticulitis and intra-abdominal abscess Patient is a 57 year male with a recent admission to the hospital with perforated diverticulitis and abscess status post laparoscopic drainage culture were negative patient received 2 weeks of IV antibiotic in the hospital subsequent discharged on oral antibiotic and presented back to the hospital with worsening abdominal pain, patient did have CT of abdominal pelvis which did shows trace peritoneal and abscess.Patient is status post exploratory laparotomy with lysis of adhesion sigmoid colectomy excision of small bowel fistula x2 and small bowel resection along with primary anastomosis procedure was completed on 12/16/2022. On today's evaluation that is 12/27/2022, the patient remains to be afebrile, patient is breathing comfortably on 2 L nasal cannula oxygen , the patient denies any chest pain shortness of breath or cough , the patient abdominal pain is controlled with the [place] has been tolerating his diet and did have output in his colostomy Patient did have a white count of 6.0, creatinine 0.74 as of 12/26/2022 no blood draw today,OR abdominal cultures so far negative Objective - Vital Signs Vital signs: Vital Signs Temp 97.8 F 12/27/22 07:07 Pulse 68 12/27/22 07:07 Resp 16 12/27/22 07:07 BP 107/69 12/27/22 07:07 Pulse Ox 97 12/27/22 07:07 FiO2 21 12/25/22 10:11 Intake & Output 12/26/22 12/27/22 12/27/22 18:59 06:59 18:59 Intake Total 1080 100 Output Total 1000 10 Balance 80 90 Weight 136.078 kg 131.542 kg Intake: Intake, IV Titration 100 Amount Piperacillin-Tazobactam 3 100 .375 gm In Sodium Chloride 0.9% 100 ml @ 25 mls/hr IVPB Q8H [facility] Rx#: [id number] Oral 1080 Output: Drainage 10 Right Abdomen 10 Urine 1000 Other: Voiding Method Toilet Toilet Urinal Urinal - Exam GENERAL DESCRIPTION: Middle-age male lying in bed in no distress RESPIRATORY SYSTEM: Unlabored breathing , clear to auscultation anteriorly HEART: S1 S2 regular rate and rhythm , ABDOMEN: Soft , mild distention and tenderness EXTREMITIES: No edema feet - Labs CBC & Chem 7: 12/28/22 10:27 12/26/22 06:52 Labs: Abnormal Lab Results - Last 24 Hours (Table) 12/26/22 12/27/22 Range/Units 20:27 11:39 POC Glucose (mg/dL) 134 H 114 H (70-110) mg/dL Assessment and Plan (1) Diverticulitis of intestine, part unspecified, with perforation and abscess without bleeding Current Visit: No Status: Acute Code(s): K57.80 - DVTRCLI OF INTEST, PART UNSP, W PERF AND ABSCESS W/O BLEED SNOMED Code(s): 228468547 (2) Intra-abdominal abscess Current Visit: No Status: Acute Code(s): K65.1 - PERITONEAL ABSCESS SNOMED Code(s): 83608133 Plan: 1patient with intra-abdominal abscess from perforated diverticulitis in this patient with a previous laparoscopic drainage of the abscess and cultures were negative now presented back to the hospital with worsening abdominal pain and evidence of perforation diverticulitis with intra-abdominal abscess slightly decreased in size, with a previous laparoscopic drainage culture did not grow any bacteria 2- the patient did have a repeat a CT abdominal pelvis that was reviewed with the IR and cannot be drained CT-guided, Patient status post extensive surgery drainage of the abscess sigmoid colectomy resection of the small bowel fistula and primary anastomosis completed on 12/16/2022 abdominal cultures were obtained which are so far negative 3patient is afebrile patient white count has been normal abdominal cultures negative for any resistant pathogen. 4patient is slowly clinically improving , patient was noticed to have some discoloration of his stoma and may need revision as per discussion with the surgical DIAL BUFFER and we will continue Zosyn and monitor clinical course closely Dictation was produced using [employer] dictation software. please excuse any grammatical, word or spelling errors. Time with Patient: Less than 30
--- NOTE | 2022-12-28 12:42 | P.PN ---
Subjective Progress Note Date: 12/28/22 Principal diagnosis: Perforated diverticulitis and intra-abdominal abscess Patient is a 57 year male with a recent admission to the hospital with perforated diverticulitis and abscess status post laparoscopic drainage culture were negative patient received 2 weeks of IV antibiotic in the hospital subsequent discharged on oral antibiotic and presented back to the hospital with worsening abdominal pain, patient did have CT of abdominal pelvis which did shows trace peritoneal and abscess.Patient is status post exploratory laparotomy with lysis of adhesion sigmoid colectomy excision of small bowel fistula x2 and small bowel resection along with primary anastomosis procedure was completed on 12/16/2022. On today's evaluation that is 12/28/2022, the patient continues to be afebrile, patient is breathing comfortably on room air, the patient denies any chest pain shortness of breath or cough , the patient abdominal pain is controlled with the [place], the patient has been tolerating his diet and did have output in his colostomy Patient did have a white count of 6.0 as of 12/28/2022, creatinine 0.74 as of 12/26/2022 the patient OR abdominal cultures so far negative Objective - Vital Signs Vital signs: Vital Signs Temp 97.4 F L 12/28/22 08:00 Pulse 68 12/28/22 08:00 Resp 16 12/28/22 08:00 BP 131/85 12/28/22 08:00 Pulse Ox 95 12/28/22 08:00 FiO2 21 12/25/22 10:11 Intake & Output 12/27/22 12/28/22 12/28/22 18:59 06:59 18:59 Intake Total 100 Output Total 10 860 Balance 90 -860 Weight 131.542 kg Intake: Intake, IV Titration 100 Amount Piperacillin-Tazobactam 3 100 .375 gm In Sodium Chloride 0.9% 100 ml @ 25 mls/hr IVPB Q8H [facility] Rx#: [id number] Output: Drainage 10 35 Right Abdomen 10 35 Urine 825 Other: Voiding Method Toilet Urinal # Voids 3 - Exam GENERAL DESCRIPTION: Middle-age male lying in bed in no distress RESPIRATORY SYSTEM: Unlabored breathing , clear to auscultation anteriorly HEART: S1 S2 regular rate and rhythm , ABDOMEN: Soft , mild distention and tenderness EXTREMITIES: No edema feet - Labs CBC & Chem 7: 12/28/22 10:27 12/26/22 06:52 Labs: Abnormal Lab Results - Last 24 Hours (Table) 12/27/22 Range/Units 11:39 POC Glucose (mg/dL) 114 H (70-110) mg/dL Assessment and Plan (1) Diverticulitis of intestine, part unspecified, with perforation and abscess without bleeding Current Visit: No Status: Acute Code(s): K57.80 - DVTRCLI OF INTEST, PART UNSP, W PERF AND ABSCESS W/O BLEED SNOMED Code(s): 320902986 (2) Intra-abdominal abscess Current Visit: No Status: Acute Code(s): K65.1 - PERITONEAL ABSCESS SNOMED Code(s): 87011589 Plan: 1patient with intra-abdominal abscess from perforated diverticulitis in this patient with a previous laparoscopic drainage of the abscess and cultures were negative now presented back to the hospital with worsening abdominal pain and evidence of perforation diverticulitis with intra-abdominal abscess slightly decreased in size, with a previous laparoscopic drainage culture did not grow any bacteria 2- the patient did have a repeat a CT abdominal pelvis that was reviewed with the IR and cannot be drained CT-guided, Patient status post extensive surgery drainage of the abscess sigmoid colectomy resection of the small bowel fistula and primary anastomosis completed on 12/16/2022 abdominal cultures were obtained which are so far negative 3patient is afebrile patient white count has been normal abdominal cultures negative for any resistant pathogen. 4patient was noticed to have some discoloration of his stoma and may need revision as per discussion with the surgical [facility] 5- we will continue Zosyn and monitor clinical course closely Dictation was produced using [employer] dictation software. please excuse any grammatical, word or spelling errors. Time with Patient: Less than 30
[2022-12-28 17:00] LABS: Glucose,Whole Blood 120 mg/dL (70-110)
[2022-12-28] MEDS: ATORVASTATIN 40 MG TAB PO SCH (20:23)
--- NOTE | 2022-12-28 21:43 | P.PN ---
Progress Note - Text Progress Note Date: 12/28/22 Patient is increased left lower quadrant abdominal pain. We'll obtain CT of the abdomen and pelvis for further assessment of intra-abdominal abscess versus ischemic ostomy. Additional surgical intervention pending further diagnostic studies
[2022-12-29] MEDS: HYDROmorphone 1 MG/ML 1 ML SYRINGE IVP PRN ×8 (00:18→23:48)
[2022-12-29] MEDS: METOCLOPRAMIDE 5 MG/ML 2 ML VIAL IVP SCH ×5 (00:20→23:47)
[2022-12-29] MEDS: KETOROLAC 15 MG/ML 1 ML VIAL IVP SCH ×5 (00:20→23:47)
[2022-12-29] MEDS: ACETAMINOPHEN TAB 500 MG TAB PO SCH ×5 (00:22→23:48)
[2022-12-29] MEDS: LORazepam 2 MG/ML INJ IV PRN ×3 (02:33→20:51)
[2022-12-29] MEDS: PIPERACILLIN-TAZOBACTAM 3.375 GM in SODIUM CHLORIDE 0.9% 100 ML IVPB SCH ×3 (03:48→20:48)
[2022-12-29] MEDS: LACTATED RINGERS 1,000 ML IV SCH ×3 (03:51→20:41)
[2022-12-29 06:00] LABS: Glucose,Whole Blood 109 mg/dL (70-110)
[2022-12-29] MEDS: LEVOTHYROXINE 100 MCG TAB PO SCH (06:59)
[2022-12-29] MEDS: INSULIN ASPART (NovoLOG) 100 UNIT/ML VIAL SQ SCH ×4 (07:00→20:42)
[2022-12-29] MEDS: METOPROLOL SUCCINATE (ER) 50 MG TAB.ER.24H PO SCH (08:16)
[2022-12-29] MEDS: hydrALAZINE HCL 25 MG TAB PO SCH ×2 (08:16→20:51)
[2022-12-29] MEDS: PANTOPRAZOLE 40 MG/10 ML VIAL IV SCH (08:16)
[2022-12-29] MEDS: GABAPENTIN 300 MG CAP PO SCH ×3 (08:16→20:52)
[2022-12-29] MEDS: ASPIRIN 81 MG PO SCH (08:16)
[2022-12-29] MEDS: IOPAMIDOL CONTRAST (ORAL USE) VIAL PO PRN ×2 (08:16→09:26)
[2022-12-29] MEDS: lisinopriL 20 MG TAB PO SCH (08:16)
--- NOTE | 2022-12-29 11:12 | CT ---
EXAMINATION TYPE: CT abdomen pelvis w con CT DLP: 3486.4 mGycm, Automated exposure control for dose reduction was used. DATE OF EXAM: 12/29/2022 10:07 AM COMPARISON: CT abdomen pelvis most recent from 12/12/2022 CLINICAL INDICATION:Male, 57 years old with history of Abdominal pain, perf diverticulitis; h/o bowel perforation f/u TECHNIQUE: Axial CT of the abdomen and pelvis. Sagittal and coronal reformats were created on a [employer] workstation. Contrast used:100 mL of Isovue 300 with IV Contrast, (none if empty) Oral contrast used: with Oral Contrast (none if empty) FINDINGS: LOWER CHEST: Atherosclerosis of the coronary arteries. ABDOMEN LIVER: Diffusely hypoattenuating parenchyma. GALLBLADDER AND BILE DUCTS: Unremarkable. PANCREAS: Unremarkable. SPLEEN: Unremarkable. ADRENAL GLANDS: Unremarkable. KIDNEYS AND URETERS: No evidence of hydronephrosis or renal calculus. The ureters are unremarkable. PELVIS BLADDER: Unremarkable REPRODUCTIVE: Unremarkable. ABDOMEN & PELVIS STOMACH AND BOWEL: No evidence of bowel obstruction. Left lower quadrant colostomy. Phlegmonous versu s postsurgical change around the sigmoid colon surgical site. The appendix is normal. PERITONEUM/RETROPERITONEUM: No evidence of pneumoperitoneum or free fluid. César-Felder drain termin ates in the low pelvis. No significant fluid collection. VASCULATURE: Mild atherosclerotic calcifications are present throughout the abdominal aorta and its b ranches. No evidence of aortic aneurysm. MUSCULOSKELETAL: No acute osseous abnormalities LYMPH NODES: No gross evidence for lymphadenopathy. SOFT TISSUE/ABDOMINAL WALL: Post surgical changes to the anterior abdominal wall with a few foci of g as. Skin linsey are present. Few areas of high density material within the surgical site are present , superiorly series 201 image 57 and inferiorly series 201 image 87. Left lateral wall fat stranding unchanged from prior. IMPRESSION: 1. Postsurgical changes with César-Felder drainage tube in place. No significant free organizing fl uid collection present. There remains phlegmonous change in and around the the surgical site of the s igmoid colon. Left colostomy appears intact. No evidence of intra-abdominal organizing fluid collecti on or free air. 2. Anterior abdominal wall postsurgical change with areas of hyperdensity correlate with physical ex am for packing material. 3. Hepatic steatosis. 4. Moderate coronary artery atherosclerosis.
[2022-12-29 11:39] LABS: Glucose,Whole Blood 106 mg/dL (70-110)
[2022-12-29 12:47] VITALS: BMI 39.3
--- NOTE | 2022-12-29 13:32 | P.PN ---
Subjective Progress Note Date: 12/29/22 Principal diagnosis: Perforated diverticulitis and intra-abdominal abscess Patient is a 57 year male with a recent admission to the hospital with perforated diverticulitis and abscess status post laparoscopic drainage culture were negative patient received 2 weeks of IV antibiotic in the hospital subsequent discharged on oral antibiotic and presented back to the hospital with worsening abdominal pain, patient did have CT of abdominal pelvis which did shows trace peritoneal and abscess.Patient is status post exploratory laparotomy with lysis of adhesion sigmoid colectomy excision of small bowel fistula x2 and small bowel resection along with primary anastomosis procedure was completed on 12/16/2022. On today's evaluation that is 12/29/2022, the patient denies any fever or chills, patient is breathing comfortably on room air, the patient denies any chest pain shortness of breath or cough , the patient abdominal pain is controlled with current medication, the patient has been tolerating his diet and did have output in his colostomy, no new symptoms Patient did have a white count of 6.0 as of 12/28/2022, no CBC was done today, patient OR abdominal cultures so far negative Objective - Vital Signs Vital signs: Vital Signs Temp 98.8 F 12/29/22 08:00 Pulse 84 12/29/22 08:00 Resp 16 12/29/22 08:00 BP 128/78 12/29/22 08:00 Pulse Ox 92 L 12/29/22 08:00 FiO2 21 12/25/22 10:11 Intake & Output 12/28/22 12/29/22 12/29/22 18:59 06:59 18:59 Intake Total 100 Output Total 1000 1490 Balance -900 -1490 Intake: Intake, IV Titration 100 Amount Piperacillin-Tazobactam 3 100 .375 gm In Sodium Chloride 0.9% 100 ml @ 25 mls/hr IVPB Q8H [facility] Rx#: [id number] Output: Drainage 90 Right Abdomen 90 Urine 500 1400 Stool 500 Other: Voiding Method Toilet Urinal - Exam GENERAL DESCRIPTION: Middle-age male lying in bed in no distress RESPIRATORY SYSTEM: Unlabored breathing , clear to auscultation anteriorly HEART: S1 S2 regular rate and rhythm , ABDOMEN: Soft , mild distention and tenderness EXTREMITIES: No edema feet - Labs CBC & Chem 7: 12/28/22 10:27 12/26/22 06:52 Labs: Abnormal Lab Results - Last 24 Hours (Table) 12/28/22 Range/Units 16:59 POC Glucose (mg/dL) 120 H (70-110) mg/dL Assessment and Plan (1) Diverticulitis of intestine, part unspecified, with perforation and abscess without bleeding Current Visit: No Status: Acute Code(s): K57.80 - DVTRCLI OF INTEST, PART UNSP, W PERF AND ABSCESS W/O BLEED SNOMED Code(s): 667650778 (2) Intra-abdominal abscess Current Visit: No Status: Acute Code(s): K65.1 - PERITONEAL ABSCESS SNOMED Code(s): 09488632 Plan: 1patient with intra-abdominal abscess from perforated diverticulitis in this pa tient with a previous laparoscopic drainage of the abscess and cultures were negative now presented back to the hospital with worsening abdominal pain and evidence of perforation diverticulitis with intra-abdominal abscess slightly decreased in size, with a previous laparoscopic drainage culture did not grow any bacteria 2- the patient did have a repeat a CT abdominal pelvis that was reviewed with the IR and cannot be drained CT-guided, Patient status post extensive surgery drainage of the abscess sigmoid colectomy resection of the small bowel fistula and primary anastomosis completed on 12/16/2022 abdominal cultures were obtained which are so far negative 3patient is afebrile patient white count has been normal abdominal cultures negative for any resistant pathogen. 4patient was noticed to have some discoloration of his stoma and may need revision as per discussion with the surgical CABLE SPO[employer]ER 5- patient did have CT abdominal pelvis completed this morning tissue some phlegmon changes but no intra-abdominal abscess continue Zosyn and monitor clinical course closely Dictation was produced using [employer] dictation software. please excuse any grammatical, word or spelling errors. Time with Patient: Less than 30
--- NOTE | 2022-12-29 14:31 | P.PN ---
Subjective Progress Note Date: 12/29/22 CHIEF COMPLAINT: Perforated diverticulitis with abscess HISTORY OF PRESENT ILLNESS: The patient is a 57-year-old -year-old male status post sigmoid colectomy with phlegmon for perforated diverticulitis, small bowel resection for small bowel fistula, 12/16/2022. Patient's ostomy is functioning. There are concerns for possible ischemic stoma. Stoma is still looking devries and dark in color. Computed tomography scan of abdomen shows no free 19 fluid collection. There remains phlegmon as change in and around the surgical site of the sigmoid colon. Left colostomy appears intact. No evidence of intra- abdominal organizing fluid collection or free air. Afebrile. WBC 6.0 PHYSICAL EXAM: VITAL SIGNS: Reviewed GENERAL: Well-developed in no acute distress. HEENT: No sclera icterus. Extraocular movements grossly intact. Moist buccal mucosa. Head is atraumatic, normocephalic. Hears conversational speech. No nasal drainage. NECK: Supple without lymphadenopathy. CHEST: Non-labored respirations and equal bilateral excursions. CARDIOVASCULAR: Palpable 2+ radial pulses. ABDOMEN: Soft. Nondistended. Ostomy with bag with stool. Stoma moise and dark in color. Incisional dressing clean dry and intact. Packing in place MUSCULOSKELETAL: No clubbing or cyanosis. NEUROLOGIC: No focal or lateralizing signs. Cranial nerves II through XII grossly intact. PSYCH: Appropriate affect. Alert and oriented to person, place and time. SKIN: Well perfused. Good skin turgor. ASSESSMENT: 1. Perforated diverticulitis with abscess and phlegmon 2. Morbid obesity due to excess calories 3. Hypokalemia 4. Small bowel fistula status post resection 5. Postoperative Ileus expected outcome following surgery 6. Acute blood loss anemia 7. Abdominal incision infection 8. Ischemic stoma PLAN: -Patient scheduled for exploratory laparotomy, colectomy and ostomy revision tomorrow with Dr. Zamorano -Continue pain management -Continue local wound -Continue low fiber diet -Nothing by mouth after midnight -Continue antibiotics -Encourage patient to increase activity level -Encourage patient to use incentive spirometer -DVT prophylaxis SCDs Physician Stage Builder note has been reviewed by physician. Signing provider agrees with the documented findings, assessment, and plan of care. Objective - Vital Signs Vital signs: Vital Signs Temp 98.8 F 12/29/22 08:00 Pulse 84 08/31/23 08:00 Resp 16 12/29/22 08:00 BP 128/78 12/29/22 08:00 Pulse Ox 92 L 12/29/22 08:00 FiO2 21 12/25/22 10:11 Intake & Output 12/28/22 12/29/22 12/29/22 18:59 06:59 18:59 Intake Total 100 Output Total 1000 1490 Balance -900 -1490 Intake: Intake, IV Titration 100 Amount Piperacillin-Tazobactam 3 100 .375 gm In Sodium Chloride 0.9% 100 ml @ 25 mls/hr IVPB Q8H [facility] Rx#: [id number] Output: Drainage 90 Right Abdomen 90 Urine 500 1400 Stool 500 Other: Voiding Method Toilet Urinal - Labs CBC & Chem 7: 12/28/22 10:27 12/26/22 06:52 Labs: Abnormal Lab Results - Last 24 Hours (Table) 12/28/22 Range/Units 16:59 POC Glucose (mg/dL) 120 H (70-110) mg/dL
--- NOTE | 2022-12-29 14:50 | P.PN ---
Subjective Progress Note Date: 12/29/22 Patient is a 57-year-old male with history of hypertension, dyslipidemia, CAD status post stent, diabetes, hypothyroidism, asthma presenting with worsening lower abdomen pain. Patient was recently admitted for perforated acute sigmoid diverticulitis with abscess, underwent robotic lysis of adhesions, abscess not drained. Patient was discharged home with antibiotics. [facility] was consulted for medical management. In the ED, temperature was 99, pulse 98, respiratory rate 18, blood pressure 127/76, saturating at 96% on room air. Initial WBC was 14.1, now 8.5. Sodium 137, potassium 4.4, creatinine 0.88, lipase 41. 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 12/15 Patient was seen and examined. No acute events overnight. Pain well controlled on Dialudid REFUGE WORKER pump. Plans for surgery on Monday. INR is 1.04. [id number] glucose ranging from 112-134 over the past 24 hours. 12/16 Patient was seen and examined. Plans for open colectomy with ostomy with Dr. Zamorano today. He continues to report abdominal pain controlled with Dilaudid REFUGE WORKER pump. Had a bowel movement this morning. CBC shows hemoglobin 9.5. BMP shows < 3.5 and Ca of 8.6. Echocardiogram was done which shows EF 50-55%. 12/17 Patient was seen and examined. He underwent exploratory laparotomy with lysis of adhesions, sigmoid colectomy, drainage of pelvic abscess. He reports uncontrollable pain in his abdomen. No bowel movement since surgery not passing gas. Currently with Rick catheter. CBC shows hemoglobin of 10.8. BMP shows sodium of 135, BUN 6, glucose 126 and calcium 8. 12/18 Patient was seen and examined. He reports 9/10 severity abdominal pain. REFUGE WORKER pump discontinued yesterday for IV Toradol and Dilaudid as needed. He reports bilious nausea and vomiting. No bowel movement, not passing gas. No stool in ostomy. CBC shows WBC count of 11.1 and hemoglobin 9.5 along with platelet count of 458. BMP shows sodium 135 and glucose of 138, calcium of 8.2. 12/19 Patient was seen and examined. KUB done yesterday confirming ileus. He reports multiple episode of N/V since yesterday. Abdominal pain is well controlled on current pain medications. Currently with NG tube draining over 3L bilious material. Started on Reglan 10 mg IV Q6H. CBC shows Hg 7.5. BMP shows bicarb 31, glucose 133, Ca 8.2, albumin 2.6. 12/27 Patient was seen and examined. Abdominal pain well controlled. Has had output out of the ostomy. Patient will require revision of his colostomy for ischemic stoma per surgery. Ileus has resolved. 12/28 Patient was seen and examined. No acute events overnight. Plans for revision of colostomy. He has no complaints. CBC shows Hg 8.3, Plt 681. 12/29 Patient was seen and examined. Reported increased abdominal pain yesterday (at baseline today) CT AP was done which showed post surgical changes with no fluid collection. Plans for revision of colostomy tomorrow. Complains of increased anxiety. General: non toxic, no distress, appears at stated age Derm: warm, dry Head: atraumatic, normocephalic, symmetric Eyes: EOMI, no lid lag, anicteric sclera Cardiovascular: S1S2 reg, no murmur Lungs: CTA bilateral, no rhonchi, no rales , no accessory muscle use Abdominal: no bowel sounds with midline surgical incision dressing c/d/i, no guarding, no appreciable organomegaly, colostomy intact Ext: no gross muscle atrophy, no edema, no contractures Neuro: no focal neuro deficits Psych: Alert, oriented, appropriate affect Acute blood loss anemia Sepsis secondary to perforated sigmoid diverticulitis with abscess formation status post exploratory laparotomy with lysis of adhesions, sigmoid colectomy, drainage of pelvic abscess CAD status post stent Hypertension Dyslipidemia Type 2 diabetes Hypothyroidism Asthma exacerbation Resolved: Ileus Based on my assessment of this patient, this patient meets a high complexity level of care. Patient has an acute diagnosis of sepsis secondary to perforated sigmoid diverticulitis with abscess formation that poses a threat to life or bodily function. Acute blood loss anemia: Hg 8.3. Expected result of surgery. Transfuse if Hg < 7. Sepsis secondary to perforated sigmoid diverticulitis with abscess formation: Continue Zosyn 3.375g IV Q8H. Low fiber diet and advance as tolerated. REFUGE WORKER pain pump discontinued and patient started on PRN Dilaudid and Toradol, [place]. Continue LR at 125 cc/hr. Blood culture negative. Telemetry monitoring. Surgery on board. Exploratory laparotomy with lysis of adhesions, sigmoid colectomy, drainage of pelvic abscess done on 12/16. Patient will require revision of his colostomy for ischemic stoma per surgery. CAD status post stent: Continue ASA 81 mg PO QD. Continue Brilinta with OK with surgery. Continue Metoprolol 50 mg PO QD. Continue Crestor when OK with surgery. Hypertension: BP 108/69. Continue Metoprolol as above. Continue Hydralazine 25 mg PO BID and Lisinopril 40 mg PO QD. Type 2 diabetes: Insulin sliding scale. Accuchecks ACHS. Hypoglycemic p recautions. Hypothyroidism: Continue Synthroid 100 mcg PO QD. Asthma : Albuterol inhaler PRN for SOB/wheezing. I have reviewed the following dynamics ax consultant notes: Surgery, ID note. I have reviewed the results of the following tests: CT AP I have ordered the following tests: I have discussed the care of this patient with the following independent historian: I have independently interpreted the following test below: I have discussed the management of this patient with the following physician: This patient has a high risk of morbidity due to the following reasons: Objective - Vital Signs Vital signs: Vital Signs Temp 97.8 F 12/29/22 13:54 Pulse 85 12/29/22 13:54 Resp 16 12/29/22 13:54 BP 120/77 12/29/22 13:54 Pulse Ox 96 12/29/22 13:54 FiO2 21 12/25/22 10:11 Intake & Output 12/28/22 12/29/22 12/29/22 18:59 06:59 18:59 Intake Total 100 Output Total 1000 1490 Balance -900 -1490 Weight 131.542 kg Intake: Intake, IV Titration 100 Amount Piperacillin-Tazobactam 3 100 .375 gm In Sodium Chloride 0.9% 100 ml @ 25 mls/hr IVPB Q8H [facility] Rx#: [id number] Output: Drainage 90 Right Abdomen 90 Urine 500 1400 Stool 500 Other: Voiding Method Toilet Urinal - Labs CBC & Chem 7: 12/28/22 10:27 12/26/22 06:52 Labs: Abnormal Lab Results - Last 24 Hours (Table) 12/28/22 Range/Units 16:59 POC Glucose (mg/dL) 120 H (70-110) mg/dL
[2022-12-29 16:37] LABS: Glucose,Whole Blood 116 mg/dL (70-110)
[2022-12-29] MEDS: ATORVASTATIN 40 MG TAB PO SCH (20:51)
[2022-12-30] MEDS: LORazepam 2 MG/ML INJ IV PRN ×3 (01:04→22:07)
[2022-12-30] MEDS: LACTATED RINGERS 1,000 ML IV SCH ×4 (02:11→16:37)
[2022-12-30] MEDS: PIPERACILLIN-TAZOBACTAM 3.375 GM in SODIUM CHLORIDE 0.9% 100 ML IVPB SCH ×3 (03:01→22:08)
[2022-12-30] MEDS: HYDROmorphone 1 MG/ML 1 ML SYRINGE IVP PRN ×4 (03:02→22:53)
[2022-12-30] MEDS: ACETAMINOPHEN TAB 500 MG TAB PO SCH ×4 (05:01→22:52)
[2022-12-30] MEDS: KETOROLAC 15 MG/ML 1 ML VIAL IVP SCH ×4 (05:02→22:52)
[2022-12-30] MEDS: METOCLOPRAMIDE 5 MG/ML 2 ML VIAL IVP SCH ×4 (05:02→22:52)
[2022-12-30] MEDS: LEVOTHYROXINE 100 MCG TAB PO SCH (06:19)
[2022-12-30] MEDS: INSULIN ASPART (NovoLOG) 100 UNIT/ML VIAL SQ SCH ×4 (06:23→22:08)
[2022-12-30] MEDS: GABAPENTIN 300 MG CAP PO SCH ×3 (07:42→22:52)
[2022-12-30] MEDS: hydrALAZINE HCL 25 MG TAB PO SCH ×2 (07:42→22:08)
[2022-12-30] MEDS: lisinopriL 20 MG TAB PO SCH (07:43)
[2022-12-30] MEDS: ASPIRIN 81 MG PO SCH (07:43)
[2022-12-30] MEDS: PANTOPRAZOLE 40 MG/10 ML VIAL IV SCH (07:43)
[2022-12-30] MEDS: METOPROLOL SUCCINATE (ER) 50 MG TAB.ER.24H PO SCH (07:43)
[2022-12-30 14:06] LABS: HCT 25.6 % (39.6-50.0); MCHC 31.3 d/dL (32.0-37.0); MCV 86.5 FL (80.0-97.0); Mean Platelet Volume 9.2 FL (9.5-12.2); NRBC Per 100 WBC 0 X 10*3/uL (0.00-0.01); Platelet Count 729 X 10*3/uL (140-440); RBC 2.96 X 10*6/uL (4.40-5.60); RDW 15.7 % (11.5-14.5); WBC 6.47 X 10*3/uL (4.50-10.00)
[2022-12-30 14:08] LABS: BUN/Creat Ratio 12.75 Ratio (12.00-20.00); Blood Urea Nitrogen 10.2 mg/dL (9.0-27.0); Calcium 8.9 mg/dL (8.7-10.3); Carbon Dioxide 23.3 mmol/L (21.6-31.8); Chloride 105 mmol/L (96-109); Glucose 100 mg/dL (70-110); Potassium 4.6 mmol/L (3.5-5.5); Sodium 140 mmol/L (135-145)
--- NOTE | 2022-12-30 15:09 | P.PN ---
Subjective Progress Note Date: 12/30/22 Patient is a 57-year-old male with history of hypertension, dyslipidemia, CAD status post stent, diabetes, hypothyroidism, asthma presenting with worsening lower abdomen pain. Patient was recently admitted for perforated acute sigmoid diverticulitis with abscess, underwent robotic lysis of adhesions, abscess not drained. Patient was discharged home with antibiotics. [facility] was consulted for medical management. In the ED, temperature was 99, pulse 98, respiratory rate 18, blood pressure 127/76, saturating at 96% on room air. Initial WBC was 14.1, now 8.5. Sodium 137, potassium 4.4, creatinine 0.88, lipase 41. 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 12/15 Patient was seen and examined. No acute events overnight. Pain well controlled on Dialudid KINDERGARTEN ASSISTANT pump. Plans for surgery on Monday. INR is 1.04. Rwrfi-au-dgbp glucose ranging from 112-134 over the past 24 hours. 12/16 Patient was seen and examined. Plans for open colectomy with ostomy with Dr. Zamorano today. He continues to report abdominal pain controlled with Dilaudid KINDERGARTEN ASSISTANT pump. Had a bowel movement this morning. CBC shows hemoglobin 9.5. BMP shows < 3.5 and Ca of 8.6. Echocardiogram was done which shows EF 50-55%. 12/17 Patient was seen and examined. He underwent exploratory laparotomy with lysis of adhesions, sigmoid colectomy, drainage of pelvic abscess. He reports uncontrollable pain in his abdomen. No bowel movement since surgery not passing gas. Currently with Rick catheter. CBC shows hemoglobin of 10.8. BMP shows sodium of 135, BUN 6, glucose 126 and calcium 8. 12/18 Patient was seen and examined. He reports 9/10 severity abdominal pain. KINDERGARTEN ASSISTANT pump discontinued yesterday for IV Toradol and Dilaudid as needed. He reports bilious nausea and vomiting. No bowel movement, not passing gas. No stool in ostomy. CBC shows WBC count of 11.1 and hemoglobin 9.5 along with platelet count of 458. BMP shows sodium 135 and glucose of 138, calcium of 8.2. 12/19 Patient was seen and examined. KUB done yesterday confirming ileus. He reports multiple episode of N/V since yesterday. Abdominal pain is well controlled on current pain medications. Currently with NG tube draining over 3L bilious material. Started on Reglan 10 mg IV Q6H. CBC shows Hg 7.5. BMP shows bicarb 31, glucose 133, Ca 8.2, albumin 2.6. 12/27 Patient was seen and examined. Abdominal pain well controlled. Has had output out of the ostomy. Patient will require revision of his colostomy for ischemic stoma per surgery. Ileus has resolved. 12/28 Patient was seen and examined. No acute events overnight. Plans for revision of colostomy. He has no complaints. CBC shows Hg 8.3, Plt 681. 12/29 Patient was seen and examined. Reported increased abdominal pain yesterday (at baseline today) CT AP was done which showed post surgical changes with no fluid collection. Plans for revision of colostomy tomorrow. Complains of increased anxiety. 12/30 Patient was seen and examined. Sleeping comfortably. CBC shows Hg 8 and Plt 729. BMP unremarkable. Plans for revision of colostomy today. General: non toxic, no distress, appears at stated age Derm: warm, dry Head: atraumatic, normocephalic, symmetric Eyes: EOMI, no lid lag, anicteric sclera Cardiovascular: Good distal perfusion all 4 extremities Lungs: Breathing comfortably , no accessory muscle use Acute blood loss anemia Sepsis secondary to perforated sigmoid diverticulitis with abscess formation status post exploratory laparotomy with lysis of adhesions, sigmoid colectomy, drainage of pelvic abscess CAD status post stent Hypertension Dyslipidemia Type 2 diabetes Hypothyroidism Asthma exacerbation Resolved: Ileus Based on my assessment of this patient, this patient meets a high complexity level of care. Patient has an acute diagnosis of sepsis secondary to perforated sigmoid diverticulitis with abscess formation that poses a threat to life or bodily function. Acute blood loss anemia: Hg 8. Expected result of surgery. Transfuse if Hg < 7. Sepsis secondary to perforated sigmoid diverticulitis with abscess formation: Co ntinue Zosyn 3.375g IV Q8H. Low fiber diet and advance as tolerated. KINDERGARTEN ASSISTANT pain pump discontinued and patient started on PRN Dilaudid and Toradol, [place]. Continue LR at 125 cc/hr. Blood culture negative. Telemetry monitoring. Surgery on board. Exploratory laparotomy with lysis of adhesions, sigmoid colectomy, drainage of pelvic abscess done on 12/16. Patient will require revision of his colostomy for ischemic stoma today. CAD status post stent: Continue ASA 81 mg PO QD. Continue Brilinta with OK with surgery. Continue Metoprolol 50 mg PO QD. Continue Crestor when OK with surgery. Hypertension: BP 113/74. Continue Metoprolol as above. Continue Hydralazine 25 mg PO BID and Lisinopril 40 mg PO QD. Type 2 diabetes: Insulin sliding scale. Accuchecks ACHS. Hypoglycemic precautions. Hypothyroidism: Continue Synthroid 100 mcg PO QD. Asthma : Albuterol inhaler PRN for SOB/wheezing. I have reviewed the following sap consultant notes: I have reviewed the results of the following tests: CBC, BMP. I have ordered the following tests: CBC. I have discussed the care of this patient with the following independent historian: I have independently interpreted the following test below: I have discussed the management of this patient with the following physician: Objective - Vital Signs Vital signs: Vital Signs Temp 98.4 F 12/30/22 12:45 Pulse 81 12/30/22 12:45 Resp 15 12/30/22 12:45 BP 113/74 12/30/22 12:45 Pulse Ox 91 L 12/30/22 12:45 FiO2 21 12/30/22 09:33 Intake & Output 12/29/22 12/30/22 12/30/22 18:59 06:59 18:59 Output Total 400 650 Balance -400 -650 Weight 131.542 kg 131.542 kg Output: Urine 650 Stool 400 Other: # Voids 6 3 - Labs CBC & Chem 7: 12/30/22 07:23 12/30/22 07:23 Labs: Abnormal Lab Results - Last 24 Hours (Table) 12/29/22 12/30/22 Range/Units 16:35 07:23 RBC 2.96 L (4.40-5.60) X 10*6/uL Hgb 8.0 L (13.0-17.0) d/dL Hct 25.6 L (39.6-50.0) % MCHC 31.3 L (32.0-37.0) d/dL RDW 15.7 H (11.5-14.5) % Plt Count 729 H (140-440) X 10*3/uL MPV 9.2 L (9.5-12.2) FL POC Glucose (mg/dL) 116 H (70-110) mg/dL
[2022-12-30] MEDS ORDERED: DEXAMETHASONE SOD PHOSPHATE 4 MG/ML 1 ML VIAL IVP ONE (15:53)
[2022-12-30] MEDS ORDERED: ONDANSETRON 4 MG/2 ML VIAL IVP ONE (15:53)
[2022-12-30 16:01] LABS: Glucose,Whole Blood 109 mg/dL (70-110)
[2022-12-30] MEDS ORDERED: LIDOCAINE 2% INJ 20 MG/ML (2 ML VIAL) ONE (16:34)
[2022-12-30] MEDS ORDERED: HYDROmorphone (PF) 1 MG/ML ONE (16:34)
[2022-12-30] MEDS ORDERED: PROPOFOL 10 MG/ML 20 ML VIAL IV ONE (16:34)
[2022-12-30] MEDS ORDERED: MIDAZOLAM 2 MG/2 ML VIAL ONE (16:34)
[2022-12-30] MEDS ORDERED: ceFAZolin 1,000 MG VIAL ONE (16:34)
[2022-12-30] MEDS ORDERED: NEOSTIGMINE 1 MG/ML 10 ML VIAL ONE (16:34)
[2022-12-30] MEDS ORDERED: GLYCOPYRROLATE 0.2 MG/ML 2 ML VIAL ONE (16:34)
[2022-12-30] MEDS ORDERED: fentaNYL (PF) 50 MCG/ML 2 ML AMP ONE (16:34)
[2022-12-30] MEDS ORDERED: SODIUM CHLORIDE 0.9% 100 ML BAG ONE (16:34)
[2022-12-30] MEDS ORDERED: SUCCINYLCHOLINE CHLORIDE 200 MG/10 ML VIAL IV ONE (16:34)
[2022-12-30] MEDS ORDERED: ROCURONIUM 10 MG/ML (5 ML VIAL) IV ONE (16:34)
[2022-12-30] MEDS ORDERED: SODIUM CHLORIDE 0.9% 50 ML with ceFAZolin 2,000 MG IV ONE ×2 (17:16)
[2022-12-30] MEDS ORDERED: LACTATED RINGERS 1,000 ML IV ONE ×2 (18:58→19:29)
[2022-12-30] MEDS ORDERED: HYDROmorphone 0.5 MG/0.5 ML SYRINGE IVP ONE ×4 (20:51→21:28)
--- NOTE | 2022-12-30 20:58 | P.OP ---
Date of Procedure: 12/30/22 Description of Procedure: SURGEON: REBECA GAINES MD PREOPERATIVE DIAGNOSES: 1. Perforated sigmoid diverticulitis with descending colostomy 2. Gangrene descending colostomy 3. Coronary artery disease 4. Thrombocytosis 5. Hypertensive heart disease 6. Morbid obesity due to excess calories, BMI 39.3 POSTOPERATIVE DIAGNOSES: 1. Perforated sigmoid diverticulitis with descending colostomy 2. 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 Coronary artery disease 4. Thrombocytosis 5. Hypertensive heart disease 6. Morbid obesity due to excess calories, BMI 39.3 7. Severe pelvic adhesions ANESTHESIA: General ESTIMATED BLOOD LOSS: 200 mL. SPECIMENS REMOVED: Descending colon COMPLICATIONS: None. OPERATION: 1. Exploratory laparotomy with extensive lysis of adhesions over 2 hours 2. Colectomy with resection of necrotic descending colostomy 3. Descending colostomy recuperation/revision 3. Peritoneal lavage over 2 liters normal saline 4. Removal of César-Felder drain right pelvis 5. Debridement of abdominal wall midline incision, 26 cm x 3 cm , water jet pulse lavage 1 L normal saline. 6. Placement of customizable PREVENA incisional wound VAC system FINDINGS: 1. Confirm complete necrosis of descending colostomy with resection and new ostomy placement 2. Severe pelvic and intra-abdominal adhesions of small bowel to the pelvis requiring extensive lysis of adhesions over 2 hours 3. Severe fat necrosis of midline incision including omentum with mechanical debridement using Pulsavac, 1 L normal saline INDICATIONS: The patient is a 57-year-old male status post recent exploration of perforated sigmoid diverticulosis with phlegmon status post small bowel re section and colectomy with descending colostomy. Patient had increase in thrombocytosis including ischemic changes of colostomy. clinical exam demonstrated necrosis of colostomy requiring resection and revision. All questions were answered and risks were reviewed with the patient. Informed consent was obtained. DESCRIPTION: Patient was brought to the operating room. The patient was placed in supine position whereby general induction was performed. Abdomen had been prepped and draped in the standard sterile fashion with placement of nasogastric tube. Rick catheter was present from the floor . Ioban draping was also placed to minimize any contamination to the skin. Skin linsey were removed along the midline. Her previous SUSAN drain was placed underneath Ioban dressing. Next, prior midline incision was reopened using hemostat. The subcutaneous tissue was without infection. The fascia was intact. The 0-Prolene's were cut using scissors and the abdomen was entered. No free sp illage of peritoneal content was identified until attention was brought to the right lower quadrant. Immediately fresh enteric content was suctioned with anaerobic and aerobic cultures sent. No defined abscess was identified within the abdomen consistent with a very fresh perforation from the patient's clinical status change this morning. The transverse colon was moderately dilated. Adhesions were gently taken down using digital palpation without injury to the small bowel. A contained fluid collection was found between the small bowel of the distal jejunal mesentery and suctioned. For complete exposure of the pelvis, a universal retractor system was placed. The small bowel was toweled off along the upper abdomen. The colorectal anastomosis was intact. Three (3) centimeters proximal to the anastomosis, a fresh perforation of the descending colon was identified unrelated to her colorectal anastomosis. The descending colon was resected using purple loads of Covidien tri-stapler. Contour stapler was also used to resect just above the anastomosis. The omentum was densely adherent into the pelvis and resected to allow for her descending colostomy creation. The highly redundant transverse colon and descending colon was prepared and mobilized for her colostomy. The mesentery was thickened and addressed using Enseal LigaSure device. Specimens passed off include descending colon as well as omentum. Hemostasis was checked with electro Bovie cautery including Enseal. Peritoneal lavage was performed as fluid collection was confirmed along the bilateral upper abdomen including lower abdomen. Over 10-12 L of warm normal saline solution was used until the aspirant was clear. Her previous SUSAN drain along the right lower quadrant was exchanged for a fresh SUSAN tubing with extended length into the deep pelvis over the resected colon site. Separately, another drain was positioned along the right upper abdomen under liver and extending to the left upper abdomen. Next, attention was brought to the delivering and creating of the descending colostomy. A point along the abdominal wall and rectus muscle was selected for the colostomy. Mikie was used to elevate the skin and a #10 blade was taken across in tangential manner to create the skin defect of approximately quarter-size. The fat of the skin was mobilized using a small rich. The rectus muscle was identified and scored with a cruciate scoring of electro- Bovie cautery. Next, using a muscle-splitting technique with a hemostat, the peritoneum was entered. The peritoneum was widened such that 3 fingerbreadths could easily pass for delivering and evaginating the descending portion of the colon through the skin. Next, the SUSAN drains were tacked along the skin using a 2-0 nylon. JPs were attached to bulb suction. The midline incision was closed using double-stranded 0 PDS. Next, the subcutaneous tissue was copiously irrigated with normal saline and hydrogen peroxide. For the rest of the incision, stainless steel skin linsey were applied. The midline incision was covered using PREVENA wound VAC and attention was brought to maturation of the colostomy. The staple edge was divided and removed. Next quadrant sutures at 12 o'clock, 3 o'clock, 6 o'clock, and 9 o'clock position was made using serosa and dermal bites using 3-0 Vicryl. Running suture 4-0 Monocryl was placed for the colostomy mucosa to dermal bites. Hemostasis was checked. A Coloplast was then placed. At the end of the procedure, needle, sponge, and instrument count had been verified correct by certified ophthalmic surgical assistant. The patient's family was updated on level of care.
[2022-12-30] MEDS: ATORVASTATIN 40 MG TAB PO SCH (22:08)
[2022-12-31] MEDS: HYDROmorphone 1 MG/ML 1 ML SYRINGE IVP PRN ×8 (02:02→23:40)
[2022-12-31] MEDS: LORazepam 2 MG/ML INJ IV PRN ×2 (02:03→21:24)
[2022-12-31] MEDS: HYDROcodone/APAP 10-325MG 1 EACH TAB PO PRN ×4 (02:41→22:34)
[2022-12-31] MEDS: PIPERACILLIN-TAZOBACTAM 3.375 GM in SODIUM CHLORIDE 0.9% 100 ML IVPB SCH ×3 (02:43→20:40)
[2022-12-31] MEDS: LACTATED RINGERS 1,000 ML IV SCH (02:45)
[2022-12-31] MEDS: LEVOTHYROXINE 100 MCG TAB PO SCH (04:55)
[2022-12-31] MEDS: ACETAMINOPHEN TAB 500 MG TAB PO SCH ×4 (04:55→23:53)
[2022-12-31] MEDS: KETOROLAC 15 MG/ML 1 ML VIAL IVP SCH ×2 (04:55→13:48)
[2022-12-31] MEDS: METOCLOPRAMIDE 5 MG/ML 2 ML VIAL IVP SCH ×4 (04:55→23:40)
[2022-12-31] MEDS: INSULIN ASPART (NovoLOG) 100 UNIT/ML VIAL SQ SCH ×4 (05:01→20:30)
[2022-12-31] MEDS: PANTOPRAZOLE 40 MG/10 ML VIAL IV SCH (08:20)
[2022-12-31 08:35] LABS: ALT 24 U/L (4-49); AST 28 U/L (17-59); African American GFR (CKD) >90 (>60 ml/min/1.73 sqM); Albumin/Globulin Ratio 0.9; Alkaline Phosphatase 53 U/L (38-126); Anion Gap 10 mmol/L; Blood Urea Nitrogen 16 mg/dL (9-20); Calcium 9.1 mg/dL (8.4-10.2); Carbon Dioxide 23 mmol/L (22-30); Chloride 105 mmol/L (98-107); Globulin 3.3 g/dL; Glucose 153 mg/dL (74-99); Magnesium 1.6 mg/dL (1.6-2.3); Non-African American GFR(CKD) >90 (>60 ml/min/1.73 sqM); Phosphorus 5.5 mg/dL (2.5-4.5); Potassium 5.3 mmol/L (3.5-5.1); Sodium 138 mmol/L (137-145); Total Bilirubin 0.5 mg/dL (0.2-1.3); Total Protein 6.3 g/dL (6.3-8.2)
[2022-12-31 08:40] LABS: Basophils % (A) 0 %; Eosinophils % (A) 0 %; HCT 32.3 % (39.0-53.0); Hypochromasia Moderate; Lymphocytes % (A) 8 %; MCH 26.9 pg (25.0-35.0); MCHC 30.9 g/dL (31.0-37.0); MCV 86.8 fL (80.0-100.0); Monocytes # (A) 1.1 k/uL (0-1.0); Monocytes % (A) 9 %; Neutrophils # (A) 10.4 k/uL (1.3-7.7); Neutrophils % (A) 82 %; Platelet Count 827 k/uL (150-450); Poikilocytosis Slight; RBC 3.72 m/uL (4.30-5.90); RDW 15.5 % (11.5-15.5); WBC 12.6 k/uL (3.8-10.6)
[2022-12-31] MEDS: METOPROLOL SUCCINATE (ER) 50 MG TAB.ER.24H PO SCH (08:41)
[2022-12-31] MEDS: HEPARIN SODIUM,PORCINE 5,000 UNIT/ML 1 ML VIAL SQ SCH ×2 (08:41→20:25)
[2022-12-31] MEDS: ASPIRIN 81 MG PO SCH (08:41)
[2022-12-31] MEDS: GABAPENTIN 300 MG CAP PO SCH ×3 (08:41→21:24)
[2022-12-31] MEDS: hydrALAZINE HCL 25 MG TAB PO SCH ×2 (08:41→20:32)
[2022-12-31] MEDS: lisinopriL 20 MG TAB PO SCH (08:41)
--- NOTE | 2022-12-31 13:12 | P.PN ---
Subjective Progress Note Date: 12/31/22 Principal diagnosis: diverticulitis with gangrenous colostomy POD 1 from colostomy revision, wound debridement and washout. Patient states pain moderately controlled Objective - Vital Signs Vital signs: Vital Signs Temp 97.5 F L 12/31/22 07:45 Pulse 77 12/31/22 08:20 Resp 15 12/31/22 08:20 BP 121/75 12/31/22 07:45 Pulse Ox 93 L 12/31/22 07:45 FiO2 21 12/30/22 09:33 Intake & Output 12/30/22 12/31/22 12/31/22 18:59 06:59 18:59 Intake Total 2049 1380 Output Total 1800 Balance 2049 - Weight 131.542 kg Intake: IV 2049 300 Oral 1080 Output: Urine 1200 Stool 400 Estimated Blood Loss 200 Other: Voiding Method Indwelling Catheter Indwelling Catheter # Voids 4 2 - Constitutional General appearance: Present: average body habitus - EENT Eyes: Present: normal appearance ENT: Absent: hard of hearing - Respiratory Details: decreased breath sounds b/l but nonlabored - Cardiovascular Rhythm: regular - Gastrointestinal Gastrointestinal Comment(s): appropriate ttp. ostomy pink/patent General gastrointestinal: Present: soft - Integumentary Integumentary: Present: normal - Neurologic Neurologic: Present: CNII-XII intact - Musculoskeletal Musculoskeletal: Present: strength equal bilaterally - Labs CBC & Chem 7: 12/31/22 07:29 12/31/22 07:29 Labs: Abnormal Lab Results - Last 24 Hours (Table) 12/30/22 12/31/22 12/31/22 Range/Units 07: 07:29 07:29 WBC 12.6 H (3.8-10.6) k/uL RBC 2.96 L 3.72 L (4.40-5.60) X 10*6/uL Hgb 8.0 L 10.0 L D (13.0-17.0) d/dL Hct 25.6 L 32.3 L (39.6-50.0) % MCHC 31.3 L 30.9 L (32.0-37.0) d/dL RDW 15.7 H (11.5-14.5) % Plt Count 729 H 827 H (140-440) X 10*3/uL MPV 9.2 L (9.5-12.2) FL Neutrophils # 10.4 H (1.3-7.7) k/uL Monocytes # 1.1 H (0-1.0) k/uL Potassium 5.3 H (3.5-5.1) mmol/L Glucose 153 H (74-99) mg/dL Phosphorus 5.5 H (2.5-4.5) mg/dL Albumin 3.0 L (3.5-5.0) g/dL Assessment and Plan Assessment: s/p ostomy revision and wound washout. Cont current therapy. Ambulate in hallway today. Incentive spirometry (1) Diverticulitis Current Visit: Yes Status: Acute Code(s): K57.92 - DVTRCLI OF INTEST, PART UNSP, W/O PERF OR ABSCESS W/O BLEED SNOMED Code(s): 106071146
--- NOTE | 2022-12-31 15:55 | P.PN ---
Subjective Progress Note Date: 12/31/22 Patient is a 57-year-old male with history of hypertension, dyslipidemia, CAD status post stent, diabetes, hypothyroidism, asthma presenting with worsening lower abdomen pain. Patient was recently admitted for perforated acute sigmoid diverticulitis with abscess, underwent robotic lysis of adhesions, abscess not drained. Patient was discharged home with antibiotics. [facility] was consulted for medical management. In the ED, temperature was 99, pulse 98, respiratory rate 18, blood pressure 127/76, saturating at 96% on room air. Initial WBC was 14.1, now 8.5. Sodium 137, potassium 4.4, creatinine 0.88, lipase 41. 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 12/15 Patient was seen and examined. No acute events overnight. Pain well controlled on Dialudid MACHINE HEEL [employer] pump. Plans for surgery on Monday. INR is 1.04. [id number] glucose ranging from 112-134 over the past 24 hours. 12/16 Patient was seen and examined. Plans for open colectomy with ostomy with Dr. Zamorano today. He continues to report abdominal pain controlled with Dilaudid MACH[employer] HEEL [employer] pump. Had a bowel movement this morning. CBC shows hemoglobin 9.5. BMP shows < 3.5 and Ca of 8.6. Echocardiogram was done which shows EF 50-55%. 12/17 Patient was seen and examined. He underwent exploratory laparotomy with lysis of adhesions, sigmoid colectomy, drainage of pelvic abscess. He reports uncontrollable pain in his abdomen. No bowel movement since surgery not passing gas. Currently with Rick catheter. CBC shows hemoglobin of 10.8. BMP shows sodium of 135, BUN 6, glucose 126 and calcium 8. 12/18 Patient was seen and examined. He reports 9/10 severity abdominal pain. MACHINE HEEL [employer] pump discontinued yesterday for IV Toradol and Dilaudid as needed. He reports bilious nausea and vomiting. No bowel movement, not passing gas. No stool in ostomy. CBC shows WBC count of 11.1 and hemoglobin 9.5 along with platelet count of 458. BMP shows sodium 135 and glucose of 138, calcium of 8.2. 12/19 Patient was seen and examined. KUB done yesterday confirming ileus. He reports multiple episode of N/V since yesterday. Abdominal pain is well controlled on current pain medications. Currently with NG tube draining over 3L bilious material. Started on Reglan 10 mg IV Q6H. CBC shows Hg 7.5. BMP shows bicarb 31, glucose 133, Ca 8.2, albumin 2.6. 12/27 Patient was seen and examined. Abdominal pain well controlled. Has had output out of the ostomy. Patient will require revision of his colostomy for ischemic stoma per surgery. Ileus has resolved. 12/28 Patient was seen and examined. No acute events overnight. Plans for revision of colostomy. He has no complaints. CBC shows Hg 8.3, Plt 681. 12/29 Patient was seen and examined. Reported increased abdominal pain yesterday (at baseline today) CT AP was done which showed post surgical changes with no fluid collection. Plans for revision of colostomy tomorrow. Complains of increased anxiety. 12/30 Patient was seen and examined. Sleeping comfortably. CBC shows Hg 8 and Plt 729. BMP unremarkable. Plans for revision of colostomy today. 12/31 Patient was seen and examined. Underwent exploratory laparotomy with extensive lysis of adhesions, colectomy with resection of necrotic descending colostomy 12/30. He reports 10/10 in his abdomen at the side on incision. CBC shows WBC count of 12.6 and Hg 10 with Plt 827. CMP shows K 5.3, glucose 153, albumin 3. Phos 5.5. General: non toxic, no distress, appears at stated age Derm: warm, dry Head: atraumatic, normocephalic, symmetric Eyes: EOMI, no lid lag, anicteric sclera Cardiovascular: Good distal perfusion all 4 extremities Lungs: Breathing comfortably , no accessory muscle use Acute blood loss anemia Hyperkalemia Sepsis secondary to perforated sigmoid diverticulitis with abscess formation status post exploratory laparotomy with lysis of adhesions, sigmoid colectomy, drainage of pelvic abscess CAD status post stent Hypertension Dyslipidemia Type 2 diabetes Hypothyroidism Asthma exacerbation Resolved: Ileus Based on my assessment of this patient, this patient meets a high complexity level of care. Patient has an acute diagnosis of sepsis secondary to perforated sigmoid diverticulitis with abscess formation that poses a threat to life or bodily function. Acute blood loss anemia: Hg 10. Expected result of surgery. Transfuse if Hg < 7. Hyperkalemia: K 5.3. Mildly elevated. Discontinue Lisinopril. Continue to monitor. Sepsis secondary to perforated sigmoid diverticulitis with abscess formation: Continue Zosyn 3.375g IV Q8H. Low fiber diet and advance as tolerated. MACHINE HEEL [employer] pain pump discontinued and patient started on PRN Dilaudid and Toradol, [place]. Continue LR at 125 cc/hr. Blood culture negative. Telemetry monitoring. Surgery on board. Exploratory laparotomy with lysis of adhesions, sigmoid colectomy, drainage of pelvic abscess done on 12/16. Patient will require revision of his colostomy for ischemic stoma today. CAD status post stent: Continue ASA 81 mg PO QD. Continue Brilinta with OK with surgery. Continue Metoprolol 50 mg PO QD. Continue Crestor when OK with surgery. Hypertension: BP 121/76. Continue Metoprolol as above. Continue Hydralazine 25 mg PO BID. Type 2 diabetes: Insulin sliding scale. Accuchecks ACHS. Hypoglycemic precautions. Hypothyroidism: Continue Synthroid 100 mcg PO QD. Asthma : Albuterol inhaler PRN for SOB/wheezing. I have reviewed the following net developer consultant notes: I have reviewed the results of the following tests: CBC, CMP. I have ordered the following tests: BMP. I have discussed the care of this patient with the following independent historian: I have independently interpreted the following test below: I have discussed the management of this patient with the following physician: Objective - Vital Signs Vital signs: Vital Signs Temp 97.5 F L 12/31/22 07:45 Pulse 77 12/31/22 08:20 Resp 15 12/31/22 08:20 BP 121/75 12/31/22 07:45 Pulse Ox 93 L 12/31/22 07:45 FiO2 21 12/30/22 09:33 Intake & Output 12/30/22 12/31/22 12/31/22 18:59 06:59 18:59 Intake Total 2049 1380 Output Total 1800 Balance 2049 -420 Weight 131.542 kg Intake: IV 2049 300 Oral 1080 Output: Urine 1200 Stool 400 Estimated Blood Loss 200 Other: Voiding Method Indwelling Catheter Indwelling Catheter # Voids 4 2 - Labs CBC & Chem 7: 12/31/22 07:29 12/31/22 07:29 Labs: Abnormal Lab Results - Last 24 Hours (Table) 12/31/22 12/31/22 Range/Units 07:29 07:29 WBC 12.6 H (3.8-10.6) k/uL RBC 3.72 L (4.30-5.90) m/uL Hgb 10.0 L D (13.0-17.5) gm/dL Hct 32.3 L (39.0-53.0) % MCHC 30.9 L (31.0-37.0) g/dL Plt Count 827 H (150-450) k/uL Neutrophils # 10.4 H (1.3-7.7) k/uL Monocytes # 1.1 H (0-1.0) k/uL Potassium 5.3 H (3.5-5.1) mmol/L Glucose 153 H (74-99) mg/dL Phosphorus 5.5 H (2.5-4.5) mg/dL Albumin 3.0 L (3.5-5.0) g/dL
[2022-12-31 20:22] LABS: Glucose,Whole Blood 140 mg/dL (70-110)
[2022-12-31] MEDS: ATORVASTATIN 40 MG TAB PO SCH (20:23)
--- NOTE | 2022-12-31 22:18 | P.PN ---
Subjective Progress Note Date: 12/30/22 Principal diagnosis: Perforated diverticulitis and intra-abdominal abscess Patient is a 57 year male with a recent admission to the hospital with perforated diverticulitis and abscess status post laparoscopic drainage culture were negative patient received 2 weeks of IV antibiotic in the hospital subsequent discharged on oral antibiotic and presented back to the hospital with worsening abdominal pain, patient did have CT of abdominal pelvis which did shows trace peritoneal and abscess.Patient is status post exploratory laparotomy with lysis of adhesion sigmoid colectomy excision of small bowel fistula x2 and small bowel resection along with primary anastomosis procedure was completed on 12/16/2022. On today's evaluation that is 12/30/2022, the patient denies having any fever or any chills, the patient is breathing comfortably, denies any chest pain shortness of breath or cough still, some abdominal pain no nausea vomiting did have output in his colostomy. Patient did have vital of 6.47 creatinine 0.84 Objective - Vital Signs Vital signs: Vital Signs Temp 97.2 F L 12/30/22 07:29 Pulse 79 12/30/22 07:29 Resp 16 12/30/22 07:29 BP 120/76 12/30/22 07:29 Pulse Ox 92 L 12/30/22 09:33 FiO2 21 12/30/22 09:33 Intake & Output 12/29/22 12/30/22 12/30/22 18:59 06:59 18:59 Output Total 400 650 Balance -400 -650 Weight 131.542 kg 131.542 kg Output: Urine 650 Stool 400 Other: # Voids 6 3 - Exam GENERAL DESCRIPTION: Middle-age male lying in bed in no distress RESPIRATORY SYSTEM: Unlabored breathing , clear to auscultation anteriorly HEART: S1 S2 regular rate and rhythm , ABDOMEN: Soft , mild distention and tenderness EXTREMITIES: No edema feet - Labs CBC & Chem 7: 12/31/22 07:29 12/31/22 07:29 Labs: Abnormal Lab Results - Last 24 Hours (Table) 12/29/22 Range/Units 16:35 POC Glucose (mg/dL) 116 H (70-110) mg/dL Assessment and Plan (1) Diverticulitis of intestine, part unspecified, with perforation and abscess without bleeding Current Visit: No Status: Acute Code(s): K57.80 - DVTRCLI OF INTEST, PART UNSP, W PERF AND ABSCESS W/O BLEED SNOMED Code(s): 193962006 (2) Intra-abdominal abscess Current Visit: No Status: Acute Code(s): K65.1 - PERITONEAL ABSCESS SNOMED Code(s): 77975000 Plan: 1patient with intra-abdominal abscess from perforated diverticulitis in this patient with a previous laparoscopic drainage of the abscess and cultures were negative now presented back to the hospital with worsening abdominal pain and evidence of perforation diverticulitis with intra-abdominal abscess slightly decreased in size, with a previous laparoscopic drainage culture did not grow any bacteria 2- the patient did have a repeat a CT abdominal pelvis that was reviewed with the IR and cannot be drained CT-guided, Patient status post extensive surgery drainage of the abscess sigmoid colectomy resection of the small bowel fistula and primary anastomosis completed on 12/16/2022 abdominal cultures were obtained which are so far negative 3patient is afebrile patient white count has been normal abdominal cultures negative for any resistant pathogen. 4patient was noticed to have some discoloration of his stoma the patient scheduled to have revision this afternoon. We will continue the patient on Zosyn and monitor his clinical course closely Dictation was produced using [employer] dictation software. please excuse any grammatical, word or spelling errors.
--- NOTE | 2022-12-31 22:22 | P.PN ---
Subjective Progress Note Date: 12/31/22 Principal diagnosis: Perforated diverticulitis and intra-abdominal abscess Patient is a 57 year male with a recent admission to the hospital with perforated diverticulitis and abscess status post laparoscopic drainage culture were negative patient received 2 weeks of IV antibiotic in the hospital subsequent discharged on oral antibiotic and presented back to the hospital with worsening abdominal pain, patient did have CT of abdominal pelvis which did shows trace peritoneal and abscess.Patient is status post exploratory laparotomy with lysis of adhesion sigmoid colectomy excision of small bowel fistula x2 and small bowel resection along with primary anastomosis procedure was completed on 12/16/2022.The patient is status post expiratory laparotomy lysis of adhesion colectomy with resection of necrotic descending colostomy along with revision of his colostomy debridement of abdominal wall midline incision and placement of prevana incisional wound vac completed on 12/30/2022 On today's evaluation that is 12/31/2022 patient denies having any fever or any chills patient is breathing comfortably on 2 L nasal cannula oxygen no chest pain shortness of breath cough no abdominal pain no nausea vomiting no output in colostomy bag. Patient did have a hemoglobin of 10 white of 12.6 creatinine 0.93 Objective - Vital Signs Vital signs: Vital Signs Temp 97.5 F L 12/31/22 07:45 Pulse 77 12/31/22 08:20 Resp 15 12/31/22 08:20 BP 121/75 12/31/22 07:45 Pulse Ox 93 L 12/31/22 07:45 FiO2 21 12/30/22 09:33 Intake & Output 12/30/22 12/31/22 12/31/22 18:59 06:59 18:59 Intake Total 2049 1380 Output Total 1800 Balance 2049 -420 Weight 131.542 kg Intake: IV 2049 300 Oral 1080 Output: Urine 1200 Stool 400 Estimated Blood Loss 200 Other: Voiding Method Indwelling Catheter Indwelling Catheter # Voids 4 2 - Exam GENERAL DESCRIPTION: Middle-age male lying in bed in no distress RESPIRATORY SYSTEM: Unlabored breathing , clear to auscultation anteriorly HEART: S1 S2 regular rate and rhythm , ABDOMEN: Soft , mild distention and tenderness EXTREMITIES: No edema feet - Labs CBC & Chem 7: 12/31/22 07:29 12/31/22 07:29 Labs: Abnormal Lab Results - Last 24 Hours (Table) 12/30/22 12/31/2212/31/23 Range/Units 07:23 07:29 07:29 WBC 12.6 H (3.8-10.6) k/uL RBC 2.96 L 3.72 L (4.40-5.60) X 10*6/uL Hgb 8.0 L 10.0 L D (13.0-17.0) d/dL Hct 25.6 L 32.3 L (39.6-50.0) % MCHC 31.3 L 30.9 L (32.0-37.0) d/dL RDW 15.7 H (11.5-14.5) % Plt Count 729 H 827 H (140-440) X 10*3/uL MPV 9.2 L (9.5-12.2) FL Neutrophils # 10.4 H (1.3-7.7) k/uL Monocytes # 1.1 H (0-1.0) k/uL Potassium 5.3 H (3.5-5.1) mmol/L Glucose 153 H (74-99) mg/dL Phosphorus 5.5 H (2.5-4.5) mg/dL Albumin 3.0 L (3.5-5.0) g/dL Assessment and Plan (1) Diverticulitis of intestine, part unspecified, with perforation and abscess without bleeding Current Visit: No Status: Acute Code(s): K57.80 - DVTRCLI OF INTEST, PART UNSP, W PERF AND ABSCESS W/O BLEED SNOMED Code(s): 527003182 (2) Intra-abdominal abscess Current Visit: No Status: Acute Code(s): K65.1 - PERITONEAL ABSCESS SNOMED Code(s): 83170212 Plan: 1patient with intra-abdominal abscess from perforated diverticulitis in this patient with a previous laparoscopic drainage of the abscess and cultures were negative now presented back to the hospital with worsening abdominal pain and evidence of perforation diverticulitis with intra-abdominal abscess slightly decreased in size, with a previous laparoscopic drainage culture did not grow any bacteria 2- the patient did have a repeat a CT abdominal pelvis that was reviewed with the IR and cannot be drained CT-guided, Patient status post extensive surgery drainage of the abscess sigmoid colectomy resection of the small bowel fistula and primary anastomosis completed on 12/16/2022 abdominal cultures were obtained which are so far negative 3patient is status post laparotomy and revision of his stoma completed on 12/30/2022 operative report did not mention any evidence of intra-abdominal abscess. 4mild leukocytosis likely reactive postoperatively. 5to continue the patient on Zosyn and will monitor his clinical course closely Dictation was produced using [employer] dictation software. please excuse any grammatical, word or spelling errors.
[2023-01-01] MEDS: LORazepam 2 MG/ML INJ IV PRN ×2 (01:28→05:35)
[2023-01-01] MEDS: HYDROmorphone 1 MG/ML 1 ML SYRINGE IVP PRN ×6 (03:18→23:14)
[2023-01-01] MEDS: LACTATED RINGERS 1,000 ML IV SCH (03:53)
[2023-01-01] MEDS: PIPERACILLIN-TAZOBACTAM 3.375 GM in SODIUM CHLORIDE 0.9% 100 ML IVPB SCH ×3 (04:31→20:03)
[2023-01-01] MEDS: HYDROcodone/APAP 10-325MG 1 EACH TAB PO PRN ×2 (04:31→11:15)
[2023-01-01] MEDS: LEVOTHYROXINE 100 MCG TAB PO SCH (05:34)
[2023-01-01] MEDS: METOCLOPRAMIDE 5 MG/ML 2 ML VIAL IVP SCH ×3 (05:35→17:13)
[2023-01-01 06:11] LABS: Glucose,Whole Blood 136 mg/dL (70-110)
[2023-01-01] MEDS: INSULIN ASPART (NovoLOG) 100 UNIT/ML VIAL SQ SCH ×4 (07:05→20:19)
[2023-01-01] MEDS: ACETAMINOPHEN TAB 500 MG TAB PO SCH ×3 (07:06→20:02)
[2023-01-01 09:01] LABS: HCT 25.4 % (39.0-53.0); Hypochromasia Marked; MCH 27.2 pg (25.0-35.0); MCHC 31.7 g/dL (31.0-37.0); MCV 85.9 fL (80.0-100.0); Mean Platelet Volume 7.4; Platelet Count 689 k/uL (150-450); Poikilocytosis Slight; RBC 2.96 m/uL (4.30-5.90); RDW 15.7 % (11.5-15.5); WBC 11.7 k/uL (3.8-10.6)
[2023-01-01 09:03] LABS: HGB 8.1 gm/dL (13.0-17.5)
[2023-01-01 09:12] LABS: African American GFR (CKD) >90 (>60 ml/min/1.73 sqM); Anion Gap 3 mmol/L; Blood Urea Nitrogen 19 mg/dL (9-20); Calcium 8.5 mg/dL (8.4-10.2); Carbon Dioxide 27 mmol/L (22-30); Chloride 104 mmol/L (98-107); Glucose 119 mg/dL (74-99); Non-African American GFR(CKD) >90 (>60 ml/min/1.73 sqM); Potassium 4.6 mmol/L (3.5-5.1); Sodium 134 mmol/L (137-145)
[2023-01-01] MEDS: PANTOPRAZOLE 40 MG/10 ML VIAL IV SCH (09:20)
[2023-01-01] MEDS: ASPIRIN 81 MG PO SCH (09:22)
[2023-01-01] MEDS: HEPARIN SODIUM,PORCINE 5,000 UNIT/ML 1 ML VIAL SQ SCH ×2 (09:22→20:04)
[2023-01-01] MEDS: GABAPENTIN 300 MG CAP PO SCH ×3 (09:22→23:14)
[2023-01-01] MEDS: hydrALAZINE HCL 25 MG TAB PO SCH ×2 (10:54→20:19)
[2023-01-01] MEDS: METOPROLOL SUCCINATE (ER) 50 MG TAB.ER.24H PO SCH (10:55)
[2023-01-01] MEDS ORDERED: oxyCODONE-APAP 10-325MG 1 EACH TAB PO PRN (13:24)
--- NOTE | 2023-01-01 13:29 | P.PN ---
Subjective Progress Note Date: 01/01/23 Patient is a 57-year-old male with history of hypertension, dyslipidemia, CAD status post stent, diabetes, hypothyroidism, asthma presenting with worsening lower abdomen pain. Patient was recently admitted for perforated acute sigmoid diverticulitis with abscess, underwent robotic lysis of adhesions, abscess not drained. Patient was discharged home with antibiotics. [facility] was consulted for medical management. In the ED, temperature was 99, pulse 98, respiratory rate 18, blood pressure 127/76, saturating at 96% on room air. Initial WBC was 14.1, now 8.5. Sodium 137, potassium 4.4, creatinine 0.88, lipase 41. 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 12/15 Patient was seen and examined. No acute events overnight. Pain well controlled on Dialudid DYE RANGE TENDER pump. Plans for surgery on Monday. INR is 1.04. [id number] glucose ranging from 112-134 over the past 24 hours. 12/16 Patient was seen and examined. Plans for open colectomy with ostomy with Dr. Zamorano today. He continues to report abdominal pain controlled with Dilaudid DYE RANGE TENDER pump. Had a bowel movement this morning. CBC shows hemoglobin 9.5. BMP shows < 3.5 and Ca of 8.6. Echocardiogram was done which shows EF 50-55%. 12/17 Patient was seen and examined. He underwent exploratory laparotomy with lysis of adhesions, sigmoid colectomy, drainage of pelvic abscess. He reports uncontrollable pain in his abdomen. No bowel movement since surgery not passing gas. Currently with Rick catheter. CBC shows hemoglobin of 10.8. BMP shows sodium of 135, BUN 6, glucose 126 and calcium 8. 12/18 Patient was seen and examined. He reports 9/10 severity abdominal pain. DYE RANGE TENDER pump discontinued yesterday for IV Toradol and Dilaudid as needed. He reports bilious nausea and vomiting. No bowel movement, not passing gas. No stool in ostomy. CBC shows WBC count of 11.1 and hemoglobin 9.5 along with platelet count of 458. BMP shows sodium 135 and glucose of 138, calcium of 8.2. 12/19 Patient was seen and examined. KUB done yesterday confirming ileus. He reports multiple episode of N/V since yesterday. Abdominal pain is well controlled on current pain medications. Currently with NG tube draining over 3L bilious material. Started on Reglan 10 mg IV Q6H. CBC shows Hg 7.5. BMP shows bicarb 31, glucose 133, Ca 8.2, albumin 2.6. 12/27 Patient was seen and examined. Abdominal pain well controlled. Has had output out of the ostomy. Patient will require revision of his colostomy for ischemic stoma per surgery. Ileus has resolved. 12/28 Patient was seen and examined. No acute events overnight. Plans for revision of colostomy. He has no complaints. CBC shows Hg 8.3, Plt 681. 12/29 Patient was seen and examined. Reported increased abdominal pain yesterday (at baseline today) CT AP was done which showed post surgical changes with no fluid collection. Plans for revision of colostomy tomorrow. Complains of increased anxiety. 12/30 Patient was seen and examined. Sleeping comfortably. CBC shows Hg 8 and Plt 729. BMP unremarkable. Plans for revision of colostomy today. 12/31 Patient was seen and examined. Underwent exploratory laparotomy with extensive lysis of adhesions, colectomy with resection of necrotic descending colostomy 12/30. He reports 10/10 in his abdomen at the side on incision. CBC shows WBC count of 12.6 and Hg 10 with Plt 827. CMP shows K 5.3, glucose 153, albumin 3. Phos 5.5. 01/01 Patient was seen and examined. He reports uncontrolled pain in his abdomen at the site on incision. No nausea or vomiting. States that Dilaudid wears off quickly. CBC shows WBC count of 11.7 and Hg 8.1 with Plt 689. CMP shows N1 134, glucose 119. General: non toxic, no distress, appears at stated age Derm: warm, dry Head: atraumatic, normocephalic, symmetric Eyes: EOMI, no lid lag, anicteric sclera Cardiovascular: Good distal perfusion all 4 extremities Lungs: Breathing comfortably , no accessory muscle use Acute blood loss anemia Sepsis secondary to perforated sigmoid diverticulitis with abscess formation status post exploratory laparotomy with lysis of adhesions, sigmoid colectomy, drainage of pelvic abscess CAD status post stent Hypertension Dyslipidemia Type 2 diabetes Hypothyroidism Asthma exacerbation Resolved: Ileus Based on my assessment of this patient, this patient meets a high complexity level of care. Patient has an acute diagnosis of sepsis secondary to perforated sigmoid diverticulitis with abscess formation that poses a threat to life or bodily function. Acute blood loss anemia: Hg 8.1. Expected result of surgery. Transfuse if Hg < 7. Sepsis secondary to perforated sigmoid diverticulitis with abscess formation: Continue Zosyn 3.375g IV Q8H. Low fiber diet and advance as tolerated. Change Dilaudid to Q2 frequency. Change [place] to Percocet 10 Q4H PRN. Continue LR at 125 cc/hr. Blood culture negative. Telemetry monitoring. Surgery on board. Exploratory laparotomy with lysis of adhesions, sigmoid colectomy, drainage of pelvic abscess done on 12/16. Exploratory laparotomy with extensive lysis of adhesions, colectomy with resection of necrotic descending colostomy 12/30. CAD status post stent: Continue ASA 81 mg PO QD. Continue Brilinta with OK with surgery. Continue Metoprolol 50 mg PO QD. Continue Crestor when OK with surgery. Hypertension: BP 105/68. Continue Metoprolol as above. Continue Hydralazine 25 mg PO BID. Type 2 diabetes: Insulin sliding scale. Accuchecks ACHS. Hypoglycemic precautions. Hypothyroidism: Continue Synthroid 100 mcg PO QD. Asthma : Albuterol inhaler PRN for SOB/wheezing. I have reviewed the following revenue cycle consultant notes: I have reviewed the results of the following tests: CBC, BMP. I have ordered the following tests: CBC I have discussed the care of this patient with the following independent historian: I have independently interpreted the following test below: I have discussed the management of this patient with the following physician: Objective - Vital Signs Vital signs: Vital Signs Temp 98.7 F 01/01/23 07:19 Pulse 88 01/01/23 09:21 Resp 16 01/01/23 09:21 BP 105/68 01/01/23 07:19 Pulse Ox 97 01/01/23 07:51 FiO2 21 12/30/22 09:33 Intake & Output 12/31/22 01/01/23 01/01/23 18:59 06:59 18:59 Output Total 400 2024 Balance -400 -2024 Output: Urine 400 2024 Uretheral (Rick) 875 Other: Voiding Method Indwelling Catheter Indwelling Catheter Indwelling Catheter - Labs CBC & Chem 7: 01/01/23 08:33 01/01/23 08:33 Labs: Abnormal Lab Results - Last 24 Hours (Table) 12/31/22 01/01/23 01/01/23 Range/Units 20:18 06:06 08:33 WBC 11.7 H (3.8-10.6) k/uL RBC 2.96 L (4.30-5.90) m/uL Hgb 8.1 L D (13.0-17.5) gm/dL Hct 25.4 L (39.0-53.0) % RDW 15.7 H (11.5-15.5) % Plt Count 689 H (150-450) k/uL Sodium (137-145) mmol/L Glucose (74-99) mg/dL POC Glucose (mg/dL) 140 H 136 H (70-110) mg/dL 01/01/23 Range/Units 08:33 WBC (3.8-10.6) k/uL RBC (4.30-5.90) m/uL Hgb (13.0-17.5) gm/dL Hct (39.0-53.0) % RDW (11.5-15.5) % Plt Count (150-450) k/uL Sodium 134 L (137-145) mmol/L Glucose 119 H (74-99) mg/dL POC Glucose (mg/dL) (70-110) mg/dL
[2023-01-01] MEDS: 1: MVI, ADULT NO.4 WITH VIT K 10 ML, TRACE (CONC-1ML/DOSE) 1 ML in AMINO ACID 5%-D20W+LY IV SCH ×3 (14:26)
--- NOTE | 2023-01-01 15:35 | P.PN ---
Subjective Progress Note Date: 01/01/23 Principal diagnosis: Perforated diverticulitis and intra-abdominal abscess Patient is a 57 year male with a recent admission to the hospital with perforated diverticulitis and abscess status post laparoscopic drainage culture were negative patient received 2 weeks of IV antibiotic in the hospital subsequent discharged on oral antibiotic and presented back to the hospital with worsening abdominal pain, patient did have CT of abdominal pelvis which did shows trace peritoneal and abscess.Patient is status post exploratory laparotomy with lysis of adhesion sigmoid colectomy excision of small bowel fistula x2 and small bowel resection along with primary anastomosis procedure was completed on 12/16/2022.The patient is status post expiratory laparotomy lysis of adhesion colectomy with resection of necrotic descending colostomy along with revision of his colostomy debridement of abdominal wall midline incision and placement of prevana incisional wound vac completed on 12/30/2022 On today's evaluation that is 01/01/2023 patient remains to be afebrile, patient is breathing comfortably on 4 L nasal cannula oxygen , patient concerned about a blood pressure being low, patient denies chest pain shortness of breath cough no abdominal pain no nausea vomiting , no new symptoms Patient did have a hemoglobin of 8.1, white count is 11.7, creatinine 0.78 Objective - Vital Signs Vital signs: Vital Signs Temp 98.6 F 01/01/23 13:13 Pulse 85 01/01/23 13:13 Resp 15 01/01/23 13:13 BP 104/67 01/01/23 13:13 Pulse Ox 93 L 01/01/23 13:13 FiO2 21 12/30/22 09:33 Intake & Output 12/31/22 01/01/23 01/01/23 18:59 06:59 18:59 Output Total 400 2024 Balance -400 -2024 Output: Urine 400 2024 Uretheral (Rick) 875 Other: Voiding Method Indwelling Catheter Indwelling Catheter Indwelling Catheter - Exam GENERAL DESCRIPTION: Middle-age male lying in bed in no distress RESPIRATORY SYSTEM: Unlabored breathing , clear to auscultation anteriorly HEART: S1 S2 regular rate and rhythm , ABDOMEN: Soft , mild distention and tenderness EXTREMITIES: No edema feet - Labs CBC & Chem 7: 01/01/23 08:33 01/01/23 08:33 Labs: Abnormal Lab Results - Last 24 Hours (Table) 12/31/22 01/01/23 01/01/23 Range/Units 20:18 06:06 08:33 WBC 11.7 H (3.8-10.6) k/uL RBC 2.96 L (4.30-5.90) m/uL Hgb 8.1 L D (13.0-17.5) gm/dL Hct 25.4 L (39.0-53.0) % RDW 15.7 H (11.5-15.5) % Plt Count 689 H (150-450) k/uL Sodium (137-145) mmol/L Glucose (74-99) mg/dL POC Glucose (mg/dL) 140 H 136 H (70-110) mg/dL 01/01/23 Range/Units 08:33 WBC (3.8-10.6) k/uL RBC (4.30-5.90) m/uL Hgb (13.0-17.5) gm/dL Hct (39.0-53.0) % RDW (11.5-15.5) % Plt Count (150-450) k/uL Sodium 134 L (137-145) mmol/L Glucose 119 H (74-99) mg/dL POC Glucose (mg/dL) (70-110) mg/dL Assessment and Plan (1) Diverticulitis of intestine, part unspecified, with perforation and abscess without bleeding Current Visit: No Status: Acute Code(s): K57.80 - DVTRCLI OF INTEST, PART UNSP, W PERF AND ABSCESS W/O BLEED SNOMED Code(s): 171429303 (2) Intra-abdominal abscess Current Visit: No Status: Acute Code(s): K65.1 - PERITONEAL ABSCESS SNOMED Code(s): 51609546 Plan: 1patient with intra-abdominal abscess from perforated diverticulitis in this patient with a previous laparoscopic drainage of the abscess and cultures were negative now presented back to the hospital with worsening abdominal pain and evidence of perforation diverticulitis with intra-abdominal abscess slightly decreased in size, with a previous laparoscopic drainage culture did not grow any bacteria 2- the patient did have a repeat a CT abdominal pelvis that was reviewed with the IR and cannot be drained CT-guided, Patient status post extensive surgery drainage of the abscess sigmoid colectomy resection of the small bowel fistula and primary anastomosis completed on 12/16/2022 abdominal cultures were obtained which are so far negative 3patient is status post laparotomy and revision of his stoma completed on 2022 operative report did not mention any evidence of intra-abdominal abscess. 4mild leukocytosis likely reactive postoperatively and is trending down. 5patient to continue the patient on Zosyn and possible placement to the fpc and IV antibiotic discussed with the surgeon Dictation was produced using [employer] dictation software. please excuse any grammatical, word or spelling errors. Time with Patient: Less than 30
--- NOTE | 2023-01-01 16:12 | P.PN ---
Subjective Progress Note Date: 01/01/23 CHIEF COMPLAINT: Diverticulitis HISTORY OF PRESENT ILLNESS: The patient is a 57-year-old male status post exploratory laparotomy, lysis of adhesions and revision of descending colostomy, 12/30/2022. Complains of moderate incisional pain in the setting of chronic pain. ROS: No reports of nausea and vomiting. No bowel movements. No fevers or chills. No new chest pain. No productive sputum PHYSICAL EXAM: VITAL SIGNS: Reviewed CONSTITUTIONAL: Well developed and in no acute distress. EYES: Conjuctivae without sclera icterus. Extraocular movements grossly intact. HEAD, EARS, NOSE, THROAT: Moist buccal mucosa. Head is atraumatic, normocephalic. Hears conversational speech. No nasal drainage. RESPIRATORY: Non-labored respirations and equal bilateral excursions. CARDIOVASCULAR: Palpable 2+ radial pulses. ABDOMEN: Ostomy is pink and patent. The wound VAC system without suction. MUSCULOSKELETAL: No gross deformity of the lower extremities noted. No clubbing. No cyanosis. SKIN: Good skin turgor. Well perfused. NEUROLOGIC: Cranial nerves II through XII grossly intact. No focal or lateralizing signs. PSYCH: Appropriate affect. Alert and oriented to person, place and time. CLINICAL LABS: Reviewed. WBC elevated at 11.3, leukocytosis. WBC 8.0-8.1, anemia ASSESSMENT: 1. Complicated perforated diverticulitis 2. Chronic pain syndrome 3. Hypertensive heart disease 4. Morbid obesity due to excess calories, BMI 39.3 5. Anemia PLAN: 1. Complains of moderate incisional pain in the setting of chronic pain. Adjust pain medications for scheduled flexeril, tylenol, toradol. 2. Hold oral narcotics as too early in postop course with high risk of rebound ileus. 3. Wall suction changed for PREVENA due to power lost to vac device. 4. Low fiber diet. 5. Continue IV antibiotics Objective - Vital Signs Vital signs: Vital Signs Temp 98.6 F 01/01/23 13:13 Pulse 85 01/01/23 13:13 Resp 15 01/01/23 13:13 BP 104/67 01/01/23 13:13 Pulse Ox 93 L 01/01/23 13:13 FiO2 21 12/30/22 09:33 Intake & Output 12/31/22 01/01/23 01/01/23 18:59 06:59 18:59 Output Total 400 2024 Balance -400 -202 Output: Urine 400 2024 Uretheral (Rick) 875 Other: Voiding Method Indwelling Catheter Indwelling Catheter Indwelling Catheter - Labs CBC & Chem 7: 01/01/23 08:33 01/01/23 08:33 Labs: Abnormal Lab Results - Last 24 Hours (Table) 12/31/22 01/01/23 01/01/23 Range/Units 20:18 06:06 08:33 WBC 11.7 H (3.8-10.6) k/uL RBC 2.96 L (4.30-5.90) m/uL Hgb 8.1 L D (13.0-17.5) gm/dL Hct 25.4 L (39.0-53.0) % RDW 15.7 H (11.5-15.5) % Plt Count 689 H (150-450) k/uL Sodium (137-145) mmol/L Glucose (74-99) mg/dL POC Glucose (mg/dL) 140 H 136 H (70-110) mg/dL 01/01/23 Range/Units 08:33 WBC (3.8-10.6) k/uL RBC (4.30-5.90) m/uL Hgb (13.0-17.5) gm/dL Hct (39.0-53.0) % RDW (11.5-15.5) % Plt Count (150-450) k/uL Sodium 134 L (137-145) mmol/L Glucose 119 H (74-99) mg/dL POC Glucose (mg/dL) (70-110) mg/dL
[2023-01-01] MEDS: CYCLOBENZAPRINE 10 MG TAB PO SCH ×2 (16:47→23:14)
[2023-01-01] MEDS: metroNIDAZOLE-NS PMX 500 MG in SALINE 1 100ML.BAG IVPB SCH (16:54)
[2023-01-01] MEDS: KETOROLAC 15 MG/ML 1 ML VIAL IVP SCH (17:13)
[2023-01-01] MEDS: ATORVASTATIN 40 MG TAB PO SCH (20:03)
[2023-01-02] MEDS: metroNIDAZOLE-NS PMX 500 MG in SALINE 1 100ML.BAG IVPB SCH ×3 (00:51→16:14)
[2023-01-02] MEDS: KETOROLAC 15 MG/ML 1 ML VIAL IVP SCH ×4 (00:52→17:42)
[2023-01-02] MEDS: METOCLOPRAMIDE 5 MG/ML 2 ML VIAL IVP SCH ×4 (00:52→17:42)
[2023-01-02] MEDS: ACETAMINOPHEN TAB 500 MG TAB PO SCH ×4 (01:27→17:52)
[2023-01-02] MEDS: HYDROmorphone 1 MG/ML 1 ML SYRINGE IVP PRN ×6 (01:28→21:34)
[2023-01-02] MEDS: PIPERACILLIN-TAZOBACTAM 3.375 GM in SODIUM CHLORIDE 0.9% 100 ML IVPB SCH ×2 (04:08→11:46)
[2023-01-02] MEDS: LEVOTHYROXINE 100 MCG TAB PO SCH (05:54)
[2023-01-02 05:59] LABS: Glucose,Whole Blood 107 mg/dL (70-110)
[2023-01-02] MEDS: LACTATED RINGERS 1,000 ML IV SCH (08:20)
[2023-01-02] MEDS: PANTOPRAZOLE 40 MG/10 ML VIAL IV SCH (08:22)
[2023-01-02] MEDS: GABAPENTIN 300 MG CAP PO SCH ×3 (09:42→21:32)
[2023-01-02] MEDS: ASPIRIN 81 MG PO SCH (09:42)
[2023-01-02] MEDS: CYCLOBENZAPRINE 10 MG TAB PO SCH ×3 (09:42→21:32)
[2023-01-02] MEDS: HEPARIN SODIUM,PORCINE 5,000 UNIT/ML 1 ML VIAL SQ SCH ×2 (09:42→21:32)
[2023-01-02] MEDS: INSULIN ASPART (NovoLOG) 100 UNIT/ML VIAL SQ SCH ×4 (09:45→23:35)
[2023-01-02] MEDS: METOPROLOL SUCCINATE (ER) 50 MG TAB.ER.24H PO SCH (09:46)
[2023-01-02] MEDS: hydrALAZINE HCL 25 MG TAB PO SCH ×2 (09:46→21:33)
--- NOTE | 2023-01-02 11:35 | P.PN ---
Subjective Progress Note Date: 01/02/23 Principal diagnosis: He is not moving much due to pain. Pain has improved since yesterday however. No emesis. Ostomy pink and patent. Midline incision attached to wall suction with moderate serosangiunos drainage. Advanced diet, remove young, PT/OT. Patient encouraged for rehab due to moderate weakness with social work assistance for home needs. Disposition 72 hrs. Objective - Vital Signs Vital signs: Vital Signs Temp 98.7 F 01/02/23 07:08 Pulse 78 01/02/23 08:22 Resp 18 01/02/23 08:22 BP 105/63 01/02/23 07:08 Pulse Ox 90 L 01/02/23 01:30 FiO2 21 12/30/22 09:33 Intake & Output 01/01/23 01/02/23 01/02/23 18:59 06:59 18:59 Output Total 1375 Balance -1375 Output: Urine 1375 Uretheral (Young) 750 Other: Voiding Method Indwelling Catheter Indwelling Catheter Indwelling Catheter - Labs CBC & Chem 7: 01/01/23 08:33 01/01/23 08:33
[2023-01-02 11:41] LABS: Glucose,Whole Blood 159 mg/dL (70-110)
[2023-01-02 12:49] LABS: Anisocytosis Slight; HGB 7.7 gm/dL (13.0-17.5); Hypochromasia Marked; MCH 26.4 pg (25.0-35.0); MCHC 30.7 g/dL (31.0-37.0); MCV 86.2 fL (80.0-100.0); Mean Platelet Volume 7.2; Platelet Count 639 k/uL (150-450); WBC 7.7 k/uL (3.8-10.6)
--- NOTE | 2023-01-02 14:33 | P.PN ---
Subjective Progress Note Date: 01/02/23 Patient is a 57-year-old male with history of hypertension, dyslipidemia, CAD status post stent, diabetes, hypothyroidism, asthma presenting with worsening lower abdomen pain. Patient was recently admitted for perforated acute sigmoid diverticulitis with abscess, underwent robotic lysis of adhesions, abscess not drained. Patient was discharged home with antibiotics. [facility] was consulted for medical management. In the ED, temperature was 99, pulse 98, respiratory rate 18, blood pressure 127/76, saturating at 96% on room air. Initial WBC was 14.1, now 8.5. Sodium 137, potassium 4.4, creatinine 0.88, lipase 41. 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 12/15 Patient was seen and examined. No acute events overnight. Pain well controlled on Dialudid SENIOR REPORT DEVELOPER pump. Plans for surgery on Monday. INR is 1.04. [id number] glucose ranging from 112-134 over the past 24 hours. 12/16 Patient was seen and examined. Plans for open colectomy with ostomy with Dr. Zamorano today. He continues to report abdominal pain controlled with Dilaudid SENIOR REPORT DEVELOPER pump. Had a bowel movement this morning. CBC shows hemoglobin 9.5. BMP shows < 3.5 and Ca of 8.6. Echocardiogram was done which shows EF 50-55%. 12/17 Patient was seen and examined. He underwent exploratory laparotomy with lysis of adhesions, sigmoid colectomy, drainage of pelvic abscess. He reports uncontrollable pain in his abdomen. No bowel movement since surgery not passing gas. Currently with Rick catheter. CBC shows hemoglobin of 10.8. BMP shows sodium of 135, BUN 6, glucose 126 and calcium 8. 12/18 Patient was seen and examined. He reports 9/10 severity abdominal pain. SENIOR REPORT DEVELOPER pump discontinued yesterday for IV Toradol and Dilaudid as needed. He reports bilious nausea and vomiting. No bowel movement, not passing gas. No stool in ostomy. CBC shows WBC count of 11.1 and hemoglobin 9.5 along with platelet count of 458. BMP shows sodium 135 and glucose of 138, calcium of 8.2. 12/19 Patient was seen and examined. KUB done yesterday confirming ileus. He reports multiple episode of N/V since yesterday. Abdominal pain is well controlled on current pain medications. Currently with NG tube draining over 3L bilious material. Started on Reglan 10 mg IV Q6H. CBC shows Hg 7.5. BMP shows bicarb 31, glucose 133, Ca 8.2, albumin 2.6. 12/27 Patient was seen and examined. Abdominal pain well controlled. Has had output out of the ostomy. Patient will require revision of his colostomy for ischemic stoma per surgery. Ileus has resolved. 12/28 Patient was seen and examined. No acute events overnight. Plans for revision of colostomy. He has no complaints. CBC shows Hg 8.3, Plt 681. 12/29 Patient was seen and examined. Reported increased abdominal pain yesterday (at baseline today) CT AP was done which showed post surgical changes with no fluid collection. Plans for revision of colostomy tomorrow. Complains of increased anxiety. 12/30 Patient was seen and examined. Sleeping comfortably. CBC shows Hg 8 and Plt 729. BMP unremarkable. Plans for revision of colostomy today. 12/31 Patient was seen and examined. Underwent exploratory laparotomy with extensive lysis of adhesions, colectomy with resection of necrotic descending colostomy 12/30. He reports 10/10 in his abdomen at the side on incision. CBC shows WBC count of 12.6 and Hg 10 with Plt 827. CMP shows K 5.3, glucose 153, albumin 3. Phos 5.5. 01/01 Patient was seen and examined. He reports uncontrolled pain in his abdomen at the site on incision. No nausea or vomiting. States that Dilaudid wears off quickly. CBC shows WBC count of 11.7 and Hg 8.1 with Plt 689. CMP shows N1 134, glucose 119. 01/02 Patient was seen and examined. Pain is better controlled today. CBC shows Hg 7.7 and Plt 639. Midline incision attached to wall suction with serosanguineous discharge. Plans for discontinuation of Rick catheter. He will need PT and OT evaluation for possible SNF. Plans for discharge in the next 72 hours per surgery. General: non toxic, no distress, appears at stated age Derm: warm, dry Head: atraumatic, normocephalic, symmetric Eyes: EOMI, no lid lag, anicteric sclera Cardiovascular: Good distal perfusion all 4 extremities Lungs: Breathing comfortably , no accessory muscle use Acute blood loss anemia Sepsis secondary to perforated sigmoid diverticulitis with abscess formation status post exploratory laparotomy with lysis of adhesions, sigmoid colectomy, drainage of pelvic abscess CAD status post stent Hypertension Dyslipidemia Type 2 diabetes Hypothyroidism Asthma exacerbation Resolved: Ileus Based on my assessment of this patient, this patient meets a high complexity level of care. Patient has an acute diagnosis of sepsis secondary to perforated sigmoid diverticulitis with abscess formation that poses a threat to life or bodily function. Acute blood loss anemia: Hg 7.7. Expected result of surgery. Transfuse if Hg < 7. Sepsis secondary to perforated sigmoid diverticulitis with abscess formation: Zosyn discontinued by surgery and started on Flagyl 500 mg IV TID. Low fiber diet and advance as tolerated. Dilaudid 1mg IV Q2H PRN and Toradol 15 mg IV Q6H PRN for pain control. Continue LR at 125 cc/hr. Blood culture negative. Telemetry monitoring. Surgery on board. Exploratory laparotomy with lysis of adhesions, sigmoid colectomy, drainage of pelvic abscess done on 12/16. Exploratory laparotomy with extensive lysis of adhesions, colectomy with resection of necrotic descending colostomy 12/30. CAD status post stent: Continue ASA 81 mg PO QD. Continue Brilinta with OK with surgery. Continue Metoprolol 50 mg PO QD. Continue Crestor when OK with surgery. Hypertension: BP 105/63. Continue Metoprolol as above. Continue Hydralazine 25 mg PO BID. Type 2 diabetes: Insulin sliding scale. Accuchecks ACHS. Hypoglycemic precautions. Hypothyroidism: Continue Synthroid 100 mcg PO QD. Asthma : Albuterol inhaler PRN for SOB/wheezing. I have reviewed the following acquisition consultant notes: Surgery note. I have reviewed the results of the following tests: CBC I have ordered the following tests: CBC I have discussed the care of this patient with the following independent historian: I have independently interpreted the following test below: I have discussed the management of this patient with the following physician: Objective - Vital Signs Vital signs: Vital Signs Temp 98.7 F 01/02/23 07:08 Pulse 78 01/02/23 08:22 Resp 18 01/02/23 08:22 BP 105/63 01/02/23 07:08 Pulse Ox 90 L 01/02/23 01:30 FiO2 21 12/30/22 09:33 Intake & Output 01/01/23 01/02/2323 18:59 06:59 18:59 Output Total 1375 Balance -1375 Output: Urine 1375 Uretheral (Rick) 750 Other: Voiding Method Indwelling Catheter Indwelling Catheter Indwelling Catheter - Labs CBC & Chem 7: 01/02/23 11:22 01/01/23 08:33 Labs: Abnormal Lab Results - Last 24 Hours (Table) 01/02/23 01/02/23 Range/Units 11:22 11:39 RBC 2.90 L (4.30-5.90) m/uL Hgb 7.7 L (13.0-17.5) gm/dL Hct 25.0 L (39.0-53.0) % MCHC 30.7 L (31.0-37.0) g/dL RDW 16.0 H (11.5-15.5) % Plt Count 639 H (150-450) k/uL POC Glucose (mg/dL) 159 H (70-110) mg/dL
[2023-01-02 16:56] LABS: Glucose,Whole Blood 134 mg/dL (70-110)
[2023-01-02] MEDS: ATORVASTATIN 40 MG TAB PO SCH (21:32)
[2023-01-03] MEDS: METOCLOPRAMIDE 5 MG/ML 2 ML VIAL IVP SCH ×5 (00:19→23:43)
[2023-01-03] MEDS: metroNIDAZOLE-NS PMX 500 MG in SALINE 1 100ML.BAG IVPB SCH ×4 (00:19→23:45)
[2023-01-03] MEDS: KETOROLAC 15 MG/ML 1 ML VIAL IVP SCH ×5 (00:19→23:42)
[2023-01-03] MEDS: ACETAMINOPHEN TAB 500 MG TAB PO SCH ×5 (00:20→23:44)
[2023-01-03] MEDS: HYDROmorphone 1 MG/ML 1 ML SYRINGE IVP PRN ×7 (00:32→23:43)
[2023-01-03] MEDS: LEVOTHYROXINE 100 MCG TAB PO SCH (05:31)
[2023-01-03 05:39] LABS: Glucose,Whole Blood 104 mg/dL (70-110)
[2023-01-03] MEDS: INSULIN ASPART (NovoLOG) 100 UNIT/ML VIAL SQ SCH ×4 (07:00→20:29)
--- NOTE | 2023-01-03 07:50 | P.PN ---
Subjective Progress Note Date: 01/03/23 Principal diagnosis: Tolerated low fiber diet. Remove catheter. PT/OT for rehab eval. Disposition to rehab when bed available. Continue incisional wound vac for drainage. Monitor H gb. Check iron. Objective - Vital Signs Vital signs: Vital Signs Temp 99.1 F 01/03/23 01:31 Pulse 88 01/03/23 01:31 Resp 18 01/03/23 01:31 BP 145/87 01/03/23 01:31 Pulse Ox 96 01/03/23 01:31 FiO2 21 12/30/22 09:33 Intake & Output 01/02/23 01/03/23 01/03/23 18:59 06:59 18:59 Output Total 725 600 Balance -725 -600 Output: Urine 725 600 Other: Voiding Method Indwelling Catheter Indwelling Catheter - Labs CBC & Chem 7: 01/02/23 11:22 01/01/23 08:33 Labs: Abnormal Lab Results - Last 24 Hours (Table) 01/02/23 01/02/23 01/02/23 Range/Units 11:22 11:39 16:55 RBC 2.90 L (4.30-5.90) m/uL Hgb 7.7 L (13.0-17.5) gm/dL Hct 25.0 L (39.0-53.0) % MCHC 30.7 L (31.0-37.0) g/dL RDW 16.0 H (11.5-15.5) % Plt Count 639 H (150-450) k/uL POC Glucose (mg/dL) 159 H 134 H (70-110) mg/dL
[2023-01-03] MEDS: PANTOPRAZOLE 40 MG/10 ML VIAL IV SCH (10:19)
[2023-01-03] MEDS: GABAPENTIN 300 MG CAP PO SCH ×3 (10:21→20:28)
[2023-01-03] MEDS: CYCLOBENZAPRINE 10 MG TAB PO SCH ×3 (10:21→20:27)
[2023-01-03] MEDS: hydrALAZINE HCL 25 MG TAB PO SCH ×2 (10:22→20:27)
[2023-01-03] MEDS: METOPROLOL SUCCINATE (ER) 50 MG TAB.ER.24H PO SCH (10:22)
[2023-01-03] MEDS: ASPIRIN 81 MG PO SCH (10:22)
[2023-01-03] MEDS: LACTATED RINGERS 1,000 ML IV SCH ×4 (10:23→17:33)
[2023-01-03] MEDS: HEPARIN SODIUM,PORCINE 5,000 UNIT/ML 1 ML VIAL SQ SCH ×2 (11:42→20:29)
[2023-01-03 11:51] LABS: Glucose,Whole Blood 117 mg/dL (70-110)
[2023-01-03 12:17] LABS: African American GFR (CKD) >90 (>60 ml/min/1.73 sqM); Anion Gap 10 mmol/L; Blood Urea Nitrogen 15 mg/dL (9-20); Calcium 8.7 mg/dL (8.4-10.2); Carbon Dioxide 24 mmol/L (22-30); Chloride 104 mmol/L (98-107); Glucose 111 mg/dL (74-99); Non-African American GFR(CKD) >90 (>60 ml/min/1.73 sqM); Potassium 4.5 mmol/L (3.5-5.1); Sodium 138 mmol/L (137-145)
[2023-01-03 12:32] LABS: Basophils # (A) 0.1 k/uL (0-0.2); Basophils % (A) 1 %; Eosinophils # (A) 0.6 k/uL (0-0.7); Eosinophils % (A) 6 %; HCT 28.5 % (39.0-53.0); Hypochromasia Marked; Lymphocytes % (A) 30 %; MCH 26.8 pg (25.0-35.0); MCHC 31.5 g/dL (31.0-37.0); MCV 85.1 fL (80.0-100.0); Mean Platelet Volume 7.5; Monocytes # (A) 0.6 k/uL (0-1.0); Monocytes % (A) 6 %; Neutrophils # (A) 5.6 k/uL (1.3-7.7); Neutrophils % (A) 56 %; Platelet Count 713 k/uL (150-450); RBC 3.34 m/uL (4.30-5.90)
--- NOTE | 2023-01-03 13:10 | P.PN ---
Subjective Progress Note Date: 01/03/23 Subjective: Seen and examined at bedside. No acute events overnight. Still has significant abdominal pain. Not ambulating well. Pertinent positives and negatives as discussed above, a complete review of systems was performed and all other systems are negative. Vitals Signs Reviewed. General: non toxic, no distress, appears at stated age Derm: warm, dry Head: atraumatic, normocephalic, symmetric Eyes: EOMI, no lid lag, anicteric sclera Cardiovascular: S1S2 reg, no murmur Lungs: CTA bilateral, no rhonchi, no rales , no accessory muscle use Abdominal: no bowel sounds with midline surgical incision dressing c/d/i, no guarding, no appreciable organomegaly, colostomy intact, wound vac in place Ext: no gross muscle atrophy, no edema, no contractures Neuro: no focal neuro deficits Psych: Alert, oriented, appropriate affect Data Reviewed Today: Pertinent Labs: Hemoglobin 9, platelet 713, creatinine 0.7 to, blood sugars range between 104-134 Imaging: No new imaging Assessment and Plan: Sepsis secondary to perforated sigmoid diverticulitis with abscess formation status post exploratory laparotomy with lysis of adhesions, sigmoid colectomy, drainage of pelvic abscess on 12/16, repeat exploratory laparotomy with extensive lysis of 50 lesion, colectomy with resection of necrotic descending colostomy on 12/30 Acute blood loss anemia, hemoglobin stable and improving Ileus resolved History of CAD status post stent Hypertension Dyslipidemia Type 2 diabetes Hypothyroidism Asthma exacerbation, resolved -Continue supportive care -Advancing diet slowly, on low fiber diet -ID also following -Remains on IV antibiotics -Continue on lactated Ringer at 1 25 mL an hour until patient is able to increase oral intake -Continue sliding scale insulin before meals at bedtime, hold metformin -Continue home medications -On aspirin, statin -brillinta held, stent was placed over 1 year ago -Pain regimen per Gen. surgery Thank you for allowing us to participate in the care of this pleasant patient. Do not hesitate to contact us with questions. Someone can be reached from the [facility] hospitalist group all hours of the day at [phone] or via [employer]. Objective - Vital Signs Vital signs: Vital Signs Temp 98.3 F 01/03/23 06:40 Pulse 70 01/03/23 06:40 Resp 18 01/03/23 06:40 BP 133/83 01/03/23 06:40 Pulse Ox 95 01/03/23 06:40 FiO2 21 12/30/22 09:33 Intake & Output 01/02/23 01/03/23 01/03/23 18:59 06:59 18:59 Output Total 418 432 1990 Balance -725 -600 -1250 Output: Urine 341 056 7277 Stool 200 Other: Voiding Method Indwelling Catheter Indwelling Catheter - Labs CBC & Chem 7: 01/03/23 11:13 01/03/23 11:13 Labs: Abnormal Lab Results - Last 24 Hours (Table) 01/02/23 01/03/23 01/03/23 Range/Units 16:55 11:13 11:13 RBC 3.34 L (4.30-5.90) m/uL Hgb 9.0 L (13.0-17.5) gm/dL Hct 28.5 L (39.0-53.0) % RDW 16.0 H (11.5-15.5) % Plt Count 713 H (150-450) k/uL Glucose 111 H (74-99) mg/dL POC Glucose (mg/dL) 134 H (70-110) mg/dL 01/03/23 Range/Units 11:50 RBC (4.30-5.90) m/uL Hgb (13.0-17.5) gm/dL Hct (39.0-53.0) % RDW (11.5-15.5) % Plt Count (150-450) k/uL Glucose (74-99) mg/dL POC Glucose (mg/dL) 117 H (70-110) mg/dL
--- NOTE | 2023-01-03 14:15 | CDI ---
Documentation Clarification Form Date: 01/03/2023 01:42:30 PM From: Janell Moffett RN CCDS Phone: [phone] Admit Date: 12/02/2022 04:18:00 PM Patient Name: Tom Quinn Visit Number: [id number] Discharge Date: ATTENTION: The Clinical Documentation Specialists (CDI) and [facility] Coding Staff appreciate your assistance in clarifying documentation. Please respond to the clarification below the line at the bottom and electronically sign. The CDI & [facility] Coding staff will review the response and follow-up if needed. Please note: Queries are made part of the Legal Health Record. If you have any questions, please contact the author of this message via ITS. Dr. Isha Zamorano There is documentation of ischemic stoma, 12/27, Surgery note. Additional clarification is requested. History/Risk Factors: 57-year-old male presents to the ED increased lower abdominal pain. Patient was recently admitted with a perforated diverticulitis 3 -4 weeks ago treated conservatively with IV antibiotics had a laparoscopy for attempted drainage of a sigmoid abscess. He was discharged home on oral antibiotics. Medical History: Diverticulitis, Hypertensive heart disease, chronic pain syndrome, CAD and DM2. 12/03, H&P. Clinical Indicators: 12/30, Surgical, note: Patient had increase in thrombocytosis including ischemic changes of colostomy. Clinical exam demonstrated necrosis of colostomy requiring resection and revision. Findings: Confirm complete necrosis of descending colostomy with resection and new ostomy placement. Treatment: 12/30 Colectomy with resection of necrotic descending colostomy with revision. Can you please clarify ischemic stoma? [X ] Acute ischemic stoma [ ] Other, please specify [ ] Unable to determine (Template Last Revised: June 2020) [X ] Acute ischemic stoma 01/06/23 Nikkie 16:41 MTDD
[2023-01-03 16:55] LABS: Glucose,Whole Blood 125 mg/dL (70-110)
[2023-01-03] MEDS: ATORVASTATIN 40 MG TAB PO SCH (20:29)
[2023-01-03 21:20] LABS: Iron 14 UG/DL (65-175); Total Iron Binding Capacity 209 UG/DL (228-460)
[2023-01-03] MEDS: LORazepam 2 MG/ML INJ IV PRN (22:18)
[2023-01-04] MEDS: HYDROmorphone 1 MG/ML 1 ML SYRINGE IVP PRN ×5 (04:07→21:15)
[2023-01-04] MEDS: LACTATED RINGERS 1,000 ML IV SCH ×4 (04:25→19:38)
[2023-01-04] MEDS: INSULIN ASPART (NovoLOG) 100 UNIT/ML VIAL SQ SCH ×4 (04:25→21:16)
[2023-01-04] MEDS: METOCLOPRAMIDE 5 MG/ML 2 ML VIAL IVP SCH ×3 (04:59→19:38)
[2023-01-04] MEDS: ACETAMINOPHEN TAB 500 MG TAB PO SCH ×3 (04:59→19:38)
[2023-01-04] MEDS: LEVOTHYROXINE 100 MCG TAB PO SCH (05:00)
[2023-01-04] MEDS: KETOROLAC 15 MG/ML 1 ML VIAL IVP SCH ×3 (05:00→19:38)
[2023-01-04] MEDS: METOPROLOL SUCCINATE (ER) 50 MG TAB.ER.24H PO SCH (08:24)
[2023-01-04] MEDS: hydrALAZINE HCL 25 MG TAB PO SCH ×2 (08:25→21:16)
[2023-01-04] MEDS: CYCLOBENZAPRINE 10 MG TAB PO SCH ×3 (08:25→21:16)
[2023-01-04] MEDS: GABAPENTIN 300 MG CAP PO SCH ×3 (08:26→21:16)
[2023-01-04] MEDS: ASPIRIN 81 MG PO SCH (08:26)
[2023-01-04] MEDS: PANTOPRAZOLE 40 MG/10 ML VIAL IV SCH (08:35)
[2023-01-04] MEDS: HEPARIN SODIUM,PORCINE 5,000 UNIT/ML 1 ML VIAL SQ SCH ×2 (08:36→21:15)
[2023-01-04] MEDS: metroNIDAZOLE-NS PMX 500 MG in SALINE 1 100ML.BAG IVPB SCH ×2 (08:39→15:06)
[2023-01-04] MEDS: SODIUM FERRIC GLUCONAT-SUCROSE 125 MG in SODIUM CHLORIDE 0.9% 100 ML IVPB SCH (10:05)
[2023-01-04] MEDS: ONDANSETRON 4 MG/2 ML VIAL IVP PRN (10:05)
--- NOTE | 2023-01-04 10:51 | P.PN ---
Subjective Progress Note Date: 01/04/23 Subjective: Seen and examined at bedside. No acute events overnight. Has abdominal pain with ambulation, otherwise improving. Able to urinate. Pertinent positives and negatives as discussed above, a complete review of systems was performed and all other systems are negative. Vitals Signs Reviewed. General: non toxic, no distress, appears at stated age Derm: warm, dry Head: atraumatic, normocephalic, symmetric Eyes: EOMI, no lid lag, anicteric sclera Cardiovascular: S1S2 reg, no murmur Lungs: CTA bilateral, no rhonchi, no rales , no accessory muscle use Abdominal: no bowel sounds with midline surgical incision dressing c/d/i, no guarding, no appreciable organomegaly, colostomy intact, wound vac in place Ext: no gross muscle atrophy, no edema, no contractures Neuro: no focal neuro deficits Psych: Alert, oriented, appropriate affect Data Reviewed Today: Pertinent Labs: Blood sugars range between 111-120 Imaging: No new imaging Assessment and Plan: Sepsis secondary to perforated sigmoid diverticulitis with abscess formation status post exploratory laparotomy with lysis of adhesions, sigmoid colectomy, drainage of pelvic abscess on 12/16, repeat exploratory laparotomy with extensive lysis of 50 lesion, colectomy with resection of necrotic descending colostomy on 12/30 Acute blood loss anemia, hemoglobin stable and improving Iron deficiency anemia Ileus resolved History of CAD status post stent Hypertension Dyslipidemia Type 2 diabetes Hypothyroidism Asthma exacerbation, resolved -Continue supportive care -Known regular diet -ID also following -Remains on IV antibiotics -Continue on lactated Ringer at 1 25 mL an hour until patient is able to increase oral intake -Continue sliding scale insulin before meals at bedtime, hold metformin: No changes -Continue home medications -On aspirin, statin -brillinta held, stent was placed over 1 year ago -Pain regimen per Gen. surgery -Started on IV iron per surgery Thank you for allowing us to participate in the care of this pleasant patient. Do not hesitate to contact us with questions. Someone can be reached from the [facility] hospitalist group all hours of the day at [phone] or via [employer]. Objective - Vital Signs Vital signs: Vital Signs Temp 98.5 F 01/04/23 06:55 Pulse 74 01/04/23 06:55 Resp 14 01/04/23 06:55 BP 111/74 01/04/23 06:55 Pulse Ox 97 01/04/23 06:55 FiO2 21 12/30/22 09:33 Intake & Output 01/03/23 01/04/23 01/04/23 18:59 06:59 18:59 Intake Total 1500 Output Total 1900 Balance -400 Weight 131.542 kg Intake: Intake, IV Titration 1500 Amount Lactated Ringers 1,000 ml 1500 @ 125 mls/hr IV .Q8H [facility] Rx#:[id number] Output: Urine 1500 Stool 400 - Labs CBC & Chem 7: 01/03/23 11:13 01/03/23 11:13 Labs: Abnormal Lab Results - Last 24 Hours (Table) 01/03/23 01/03/23 01/03/23 Range/Units 11:13 11:13 11:50 RBC 3.34 L (4.30-5.90) m/uL Hgb 9.0 L (13.0-17.5) gm/dL Hct 28.5 L (39.0-53.0) % RDW 16.0 H (11.5-15.5) % Plt Count 713 H (150-450) k/uL Glucose 111 H (74-99) mg/dL POC Glucose (mg/dL) 117 H (70-110) mg/dL Iron 14 L (65-175) UG/DL TIBC 209 L (228-460) UG/DL % Saturation 6.70 L (15.00-50.00) Transferrin 149.0 L (204.0-354.0) mg/dL 01/03/23 Range/Units 16:53 RBC (4.30-5.90) m/uL Hgb (13.0-17.5) gm/dL Hct (39.0-53.0) % RDW (11.5-15.5) % Plt Count (150-450) k/uL Glucose (74-99) mg/dL POC Glucose (mg/dL) 125 H (70-110) mg/dL Iron (65-175) UG/DL TIBC (228-460) UG/DL % Saturation (15.00-50.00) Transferrin (204.0-354.0) mg/dL
--- NOTE | 2023-01-04 14:30 | P.PN ---
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 Patient had a descending colostomy necrosis due to ischemia he is status post colectomy with resection of necrotic descending colostomy and lysis of adhesions on 12/30/2022. Patient's ostomy is functioning. He is tolerating a low fiber diet. Afebrile. WBC 10 Hemoglobin did go up from 7.7-9. Platelets 713 Iron 14 PHYSICAL EXAM: VITAL SIGNS: Reviewed GENERAL: Well-developed in no acute distress. HEENT: No sclera icterus. Extraocular movements grossly intact. Moist buccal mucosa. Head is atraumatic, normocephalic. Hears conversational speech. No nasal drainage. NECK: Supple without lymphadenopathy. CHEST: Non-labored respirations and equal bilateral excursions. CARDIOVASCULAR: Palpable 2+ radial pulses. ABDOMEN: Soft. Nondistended. Ostomy functioning. Prevana wound VAC intact and placed to wall suction. SUSAN drain serosanguineous output MUSCULOSKELETAL: No clubbing or cyanosis. NEUROLOGIC: No focal or lateralizing signs. Cranial nerves II through XII grossly intact. PSYCH: Appropriate affect. Alert and oriented to person, place and time. SKIN: Well perfused. Good skin turgor. ASSESSMENT: 1. Perforated sigmoid diverticulitis with descending colostomy 2. 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 Coronary artery disease 4. Thrombocytosis 5. Hypertensive heart disease 6. Morbid obesity due to excess calories, BMI 39.3 7. Severe pelvic adhesions 8. Iron deficiency anemia PLAN: -Anticipate discharge to ECF possibly Monday -Continue antibiotics. Awaiting ID recommendations for discharge antibiotics for Monday -Continue low fiber diet -Continue Prevana to wall suction -IV iron daily 3 doses -Jeevan protein drinks added to promote wound healing -Encourage patient to ambulate -Encourage patient to use incentive spirometer -DVT prophylaxis SCDs Physician Internet Marketing Director note has been reviewed by physician. Signing provider agrees with the documented findings, assessment, and plan of care. Objective - Vital Signs Vital signs: Vital Signs Temp 98.5 F 01/04/23 06:55 Pulse 74 01/04/23 06:55 Resp 14 01/04/23 06:55 BP 111/74 01/04/23 06:55 Pulse Ox 97 01/04/23 06:55 FiO2 21 12/30/22 09:33 Intake & Output 01/03/23 01/04/23 01/04/23 18:59 06:59 18:59 Intake Total 1500 Output Total 1900 Balance -400 Weight 131.542 kg Intake: Intake, IV Titration 1500 Amount Lactated Ringers 1,000 ml 1500 @ 125 mls/hr IV .Q8H [facility] Rx#:[id number] Output: Urine 1500 Stool 400 Other: Voiding Method Indwelling Catheter - Labs CBC & Chem 7: 01/03/23 11:13 01/03/23 11:13 Labs: Abnormal Lab Results - Last 24 Hours (Table) 01/03/23 01/03/23 Range/Units 11:13 16:53 POC Glucose (mg/dL) 125 H (70-110) mg/dL Iron 14 L (65-175) UG/DL TIBC 209 L (228-460) UG/DL % Saturation 6.70 L (15.00-50.00) Transferrin 149.0 L (204.0-354.0) mg/dL
[2023-01-04 20:00] LABS: Glucose,Whole Blood 130 mg/dL (70-110)
[2023-01-04] MEDS: ATORVASTATIN 40 MG TAB PO SCH (21:16)
[2023-01-05] MEDS: HYDROmorphone 1 MG/ML 1 ML SYRINGE IVP PRN ×5 (00:48→21:18)
[2023-01-05] MEDS: PIPERACILLIN-TAZOBACTAM 3.375 GM in SODIUM CHLORIDE 0.9% 100 ML IVPB SCH ×4 (00:48→23:34)
[2023-01-05] MEDS: ACETAMINOPHEN TAB 500 MG TAB PO SCH ×3 (00:49→13:35)
[2023-01-05] MEDS: KETOROLAC 15 MG/ML 1 ML VIAL IVP SCH ×5 (00:49→23:34)
[2023-01-05] MEDS: metroNIDAZOLE-NS PMX 500 MG in SALINE 1 100ML.BAG IVPB SCH ×2 (00:49→09:24)
[2023-01-05] MEDS: METOCLOPRAMIDE 5 MG/ML 2 ML VIAL IVP SCH ×3 (00:50→13:38)
[2023-01-05] MEDS: LACTATED RINGERS 1,000 ML IV SCH ×3 (04:48→18:28)
[2023-01-05] MEDS: LEVOTHYROXINE 100 MCG TAB PO SCH (05:47)
[2023-01-05 05:51] LABS: Glucose,Whole Blood 104 mg/dL (70-110)
[2023-01-05] MEDS: LORazepam 2 MG/ML INJ IV PRN ×2 (05:56→23:52)
[2023-01-05] MEDS: INSULIN ASPART (NovoLOG) 100 UNIT/ML VIAL SQ SCH ×4 (06:42→21:18)
[2023-01-05] MEDS: SODIUM FERRIC GLUCONAT-SUCROSE 125 MG in SODIUM CHLORIDE 0.9% 100 ML IVPB SCH (09:24)
[2023-01-05] MEDS: PANTOPRAZOLE 40 MG/10 ML VIAL IV SCH (09:25)
[2023-01-05] MEDS: hydrALAZINE HCL 25 MG TAB PO SCH ×2 (09:26→21:17)
[2023-01-05] MEDS: METOPROLOL SUCCINATE (ER) 50 MG TAB.ER.24H PO SCH (09:26)
[2023-01-05] MEDS: GABAPENTIN 300 MG CAP PO SCH ×3 (09:26→22:22)
[2023-01-05] MEDS: HEPARIN SODIUM,PORCINE 5,000 UNIT/ML 1 ML VIAL SQ SCH ×2 (09:26→21:18)
[2023-01-05] MEDS: ASPIRIN 81 MG PO SCH (09:26)
[2023-01-05] MEDS: CYCLOBENZAPRINE 10 MG TAB PO SCH ×3 (09:26→22:22)
--- NOTE | 2023-01-05 11:12 | P.PN ---
Subjective Progress Note Date: 01/05/23 Subjective: Seen and examined at bedside. No acute events overnight. Has abdominal pain with ambulation, otherwise improving. Pertinent positives and negatives as discussed above, a complete review of systems was performed and all other systems are negative. Vitals Signs Reviewed. General: non toxic, no distress, appears at stated age Derm: warm, dry Head: atraumatic, normocephalic, symmetric Eyes: EOMI, no lid lag, anicteric sclera Cardiovascular: S1S2 reg, no murmur Lungs: CTA bilateral, no rhonchi, no rales , no accessory muscle use Abdominal: no bowel sounds with midline surgical incision dressing c/d/i, no guarding, no appreciable organomegaly, colostomy intact, wound vac in place Ext: no gross muscle atrophy, no edema, no contractures Neuro: no focal neuro deficits Psych: Alert, oriented, appropriate affect Data Reviewed Today: Pertinent Labs: Blood sugars range between 104 to 130 Imaging: No new imaging Assessment and Plan: Sepsis secondary to perforated sigmoid diverticulitis with abscess formation status post exploratory laparotomy with lysis of adhesions, sigmoid colectomy, drainage of pelvic abscess on 12/16, repeat exploratory laparotomy with extensive lysis of 50 lesion, colectomy with resection of necrotic descending colostomy on 12/30 Acute blood loss anemia, hemoglobin stable and improving Iron deficiency anemia Ileus resolved History of CAD status post stent Hypertension Dyslipidemia Type 2 diabetes Hypothyroidism Asthma exacerbation, resolved -Continue supportive care -now on regular diet -ID also following -Remains on IV antibiotics -Continue on lactated Ringer at 1 25 mL an hour until patient is able to increase oral intake -Continue sliding scale insulin before meals at bedtime, hold metformin: No changes -Continue home medications -On aspirin, statin -brillinta held, stent was placed over 1 year ago -Pain regimen per Gen. surgery -on IV iron per surgery -possible DC to rehab in 1-2 days Thank you for allowing us to participate in the care of this pleasant patient. Do not hesitate to contact us with questions. Someone can be reached from the [facility] hospitalist group all hours of the day at [phone] or via perfect serve. Objective - Vital Signs Vital signs: Vital Signs Temp 98.4 F 01/05/23 08:02 Pulse 76 01/05/23 08:02 Resp 16 01/05/23 08:02 BP 114/74 01/05/23 08:02 Pulse Ox 93 L 01/05/23 08:19 FiO2 21 12/30/22 09:33 Intake & Output 01/04/23 01/05/23 01/05/23 18:59 06:59 18:59 Output Total 1000 Balance -1000 Output: Urine 1000 - Labs CBC & Chem 7: 01/03/23 11:13 01/03/23 11:13 Labs: Abnormal Lab Results - Last 24 Hours (Table) 01/04/23 Range/Units 19:59 POC Glucose (mg/dL) 130 H (70-110) mg/dL
[2023-01-05 11:23] LABS: ALT 16 U/L (10-49); AST 19 U/L (14-35); Albumin 2.5 d/dL (3.8-4.9); Albumin/Globulin Ratio 0.89 Ratio (1.60-3.17); Alkaline Phosphatase 45 U/L (41-126); BUN/Creat Ratio 14.33 Ratio (12.00-20.00); Blood Urea Nitrogen 8.6 mg/dL (9.0-27.0); Calcium 8.4 mg/dL (8.7-10.3); Carbon Dioxide 26.4 mmol/L (21.6-31.8); Chloride 102 mmol/L (96-109); Globulin 2.8 d/dL (1.6-3.3); Glucose 98 mg/dL (70-110); Potassium 4.3 mmol/L (3.5-5.5); Sodium 138 mmol/L (135-145); Total Bilirubin 0.2 mg/dL (0.3-1.2); Total Protein 5.3 d/dL (6.2-8.2)
[2023-01-05 11:26] LABS: Basophils # (A) 0.08 X 10*3/uL (0.00-0.10); Basophils % (A) 0.9 %; Eosinophils # (A) 0.64 X 10*3/uL (0.04-0.35); Eosinophils % (A) 7.3 %; HCT 23.7 % (39.6-50.0); HGB 7.2 d/dL (13.0-17.0); Lymphocytes # (A) 2.15 X 10*3/uL (0.90-5.00); Lymphocytes % (A) 24.5 %; MCH 25.9 pg (27.0-32.0); MCHC 30.4 d/dL (32.0-37.0); MCV 85.3 FL (80.0-97.0); Mean Platelet Volume 9.3 FL (9.5-12.2); Monocytes # (A) 0.72 X 10*3/uL (0.20-1.00); Monocytes % (A) 8.2 %; NRBC Per 100 WBC 0 X 10*3/uL (0.00-0.01); Neutrophils # (A) 5.16 X 10*3/uL (1.80-7.70); Neutrophils % (A) 58.6 %; Platelet Count 588 X 10*3/uL (140-440); RBC 2.78 X 10*6/uL (4.40-5.60); RDW 16.6 % (11.5-14.5); WBC 8.79 X 10*3/uL (4.50-10.00)
--- NOTE | 2023-01-05 12:58 | P.PN ---
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 Patient had a descending colostomy necrosis due to ischemia he is status post colectomy with resection of necrotic descending colostomy and lysis of adhesions on 12/30/2022. Patient's ostomy is functioning. He is tolerating a low fiber diet. Oral intake is decreased. Afebrile. Patient receiving IV iron for anemia. WBC is 8.79 Hgb is down from 9-7.2 platelets 588 PHYSICAL EXAM: VITAL SIGNS: Reviewed GENERAL: Well-developed in no acute distress. HEENT: No sclera icterus. Extraocular movements grossly intact. Moist buccal mucosa. Head is atraumatic, normocephalic. Hears conversational speech. No nasal drainage. NECK: Supple without lymphadenopathy. CHEST: Non-labored respirations and equal bilateral excursions. CARDIOVASCULAR: Palpable 2+ radial pulses. ABDOMEN: Soft. Nondistended. Ostomy functioning. stoma beefy red. Prevana wound VAC intact and placed to wall suction. MUSCULOSKELETAL: No clubbing or cyanosis. NEUROLOGIC: No focal or lateralizing signs. Cranial nerves II through XII grossly intact. PSYCH: Appropriate affect. Alert and oriented to person, place and time. SKIN: Well perfused. Good skin turgor. ASSESSMENT: 1. Perforated sigmoid diverticulitis with descending colostomy 2. 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 Coronary artery disease 4. Thrombocytosis 5. Hypertensive heart disease 6. Morbid obesity due to excess calories, BMI 39.3 7. Severe pelvic adhesions 8. Iron deficiency anemia PLAN: -Anticipate discharge to ECF possibly Monday. Insurance authorization in progress -Discharge antibiotics per infectious disease -Continue low fiber diet -Continue Prevana to wall suction -IV iron daily. Patient received 2 out of 3 doses -Encourage patient to ambulate -Encourage patient to use incentive spirometer -DVT prophylaxis SCDs Physician Billing Clerk note has been reviewed by physician. Signing provider agrees with the documented findings, assessment, and plan of care. Objective - Vital Signs Vital signs: Vital Signs Temp 98.4 F 01/05/23 08:02 Pulse 76 01/05/23 08:02 Resp 16 01/05/23 08:02 BP 114/74 01/05/23 08:02 Pulse Ox 93 L 01/05/23 08:19 FiO2 21 12/30/22 09:33 Intake & Output 01/04/23 01/05/23 01/05/23 18:59 06:59 18:59 Output Total 1000 Balance -1000 Output: Urine 1000 - Labs CBC & Chem 7: 01/05/23 07:16 01/05/23 07:16 Labs: Abnormal Lab Results - Last 24 Hours (Table) 01/04/23 01/05/23 01/05/23 Range/Units 19:59 07:16 07:16 RBC 2.78 L (4.40-5.60) X 10*6/uL Hgb 7.2 L (13.0-17.0) d/dL Hct 23.7 L (39.6-50.0) % MCH 25.9 L (27.0-32.0) pg MCHC 30.4 L (32.0-37.0) d/dL RDW 16.6 H (11.5-14.5) % Plt Count 588 H (140-440) X 10*3/uL MPV 9.3 L (9.5-12.2) FL Eosinophils # 0.64 H (0.04-0.35) X 10*3/uL BUN 8.6 L (9.0-27.0) mg/dL POC Glucose (mg/dL) 130 H (70-110) mg/dL Calcium 8.4 L (8.7-10.3) mg/dL Total Bilirubin 0.2 L (0.3-1.2) mg/dL C-Reactive Protein 4.90 H (0.00-0.80) mg/dL Total Protein 5.3 L (6.2-8.2) d/dL Albumin 2.5 L (3.8-4.9) d/dL Albumin/Globulin Ratio 0.89 L (1.60-3.17) Ratio
[2023-01-05] MEDS ORDERED: HYDROmorphone 1 MG/ML 1 ML SYRINGE IVP PRN (14:15)
[2023-01-05] MEDS: metroNIDAZOLE 500 MG TAB PO SCH ×2 (16:25→23:35)
[2023-01-05 21:15] LABS: Glucose,Whole Blood 120 mg/dL (70-110)
[2023-01-05] MEDS: ATORVASTATIN 40 MG TAB PO SCH (21:17)
--- NOTE | 2023-01-05 23:07 | P.PN ---
Subjective Progress Note Date: 01/02/23 Principal diagnosis: Perforated diverticulitis and intra-abdominal abscess Patient is a 57 year male with a recent admission to the hospital with perforated diverticulitis and abscess status post laparoscopic drainage culture were negative patient received 2 weeks of IV antibiotic in the hospital subsequent discharged on oral antibiotic and presented back to the hospital with worsening abdominal pain, patient did have CT of abdominal pelvis which did shows trace peritoneal and abscess.Patient is status post exploratory laparotomy with lysis of adhesion sigmoid colectomy excision of small bowel fistula x2 and small bowel resection along with primary anastomosis procedure was completed on 12/16/2022.The patient is status post expiratory laparotomy lysis of adhesion colectomy with resection of necrotic descending colostomy along with revision of his colostomy debridement of abdominal wall midline incision and placement of prevana incisional wound vac completed on 12/30/2022 On today's evaluation that is01/02/2023, the patient remains to be afebrile the patient is breathing comfortably on room air patient denies having any chest pain shortness with occasional cough some nausea but no vomiting tolerating his diet. Patient did have a white count of 7.7 that is normal creatinine is normal Objective - Vital Signs Vital signs: Vital Signs Temp 97.8 F 01/02/23 15:39 Pulse 74 01/02/23 15:39 Resp 18 01/02/23 15:39 BP 115/71 01/02/23 15:39 Pulse Ox 95 01/02/23 15:39 FiO2 21 12/30/22 09:33 Intake & Output 01/01/23 01/02/23 01/02/23 18:59 06:59 18:59 Output Total 1375 Balance -1375 Output: Urine 1375 Uretheral (Rick) 750 Other: Voiding Method Indwelling Catheter Indwelling Catheter Indwelling Catheter - Exam GENERAL DESCRIPTION: Middle-age male lying in bed in no distress RESPIRATORY SYSTEM: Unlabored breathing , clear to auscultation anteriorly HEART: S1 S2 regular rate and rhythm , ABDOMEN: Soft , mild distention and tenderness EXTREMITIES: No edema feet - Labs CBC & Chem 7: 01/05/23 07:16 01/05/23 07:16 Labs: Abnormal Lab Results - Last 24 Hours (Table) 01/02/23 01/02/23 01/02/23 Range/Units 11:22 11:39 16:55 RBC 2.90 L (4.30-5.90) m/uL Hgb 7.7 L (13.0-17.5) gm/dL Hct 25.0 L (39.0-53.0) % MCHC 30.7 L (31.0-37.0) g/dL RDW 16.0 H (11.5-15.5) % Plt Count 639 H (150-450) k/uL POC Glucose (mg/dL) 159 H 134 H (70-110) mg/dL Assessment and Plan (1) Diverticulitis of intestine, part unspecified, with perforation and abscess without bleeding Current Visit: No Status: Acute Code(s): K57.80 - DVTRCLI OF INTEST, PART UNSP, W PERF AND ABSCESS W/O BLEED SNOMED Code(s): 281366345 (2) Intra-abdominal abscess Current Visit: No Status: Acute Code(s): K65.1 - PERITONEAL ABSCESS SNOMED Code(s): 33239092 Plan: 1patient with intra-abdominal abscess from perforated diverticulitis in this patient with a previous laparoscopic drainage of the abscess and cultures were negative now presented back to the hospital with worsening abdominal pain and evidence of perforation diverticulitis with intra-abdominal abscess slightly decreased in size, with a previous laparoscopic drainage culture did not grow any bacteria 2- the patient did have a repeat a CT abdominal pelvis that was reviewed with the IR and cannot be drained CT-guided, Patient status post extensive surgery drainage of the abscess sigmoid colectomy resection of the small bowel fistula and primary anastomosis completed on 12/16/2022 abdominal cultures were obtained which are so far negative 3patient is status post laparotomy and revision of his stoma completed on 12/30/2022 operative report did not mention any evidence of intra-abdominal abscess. 4mild leukocytosis likely reactive postoperatively and the patient white count has normalized. 5patient to continue with the Zosyn currently waiting for placement and outpatient antibiotic arrangement Dictation was produced using [employer] dictation software. please excuse any grammatical, word or spelling errors.
--- NOTE | 2023-01-05 23:09 | P.PN ---
Subjective Progress Note Date: 01/03/23 Principal diagnosis: Perforated diverticulitis and intra-abdominal abscess Patient is a 57 year male with a recent admission to the hospital with perforated diverticulitis and abscess status post laparoscopic drainage culture were negative patient received 2 weeks of IV antibiotic in the hospital subsequent discharged on oral antibiotic and presented back to the hospital with worsening abdominal pain, patient did have CT of abdominal pelvis which did shows trace peritoneal and abscess.Patient is status post exploratory laparotomy with lysis of adhesion sigmoid colectomy excision of small bowel fistula x2 and small bowel resection along with primary anastomosis procedure was completed on 12/16/2022.The patient is status post expiratory laparotomy lysis of adhesion colectomy with resection of necrotic descending colostomy along with revision of his colostomy debridement of abdominal wall midline incision and placement of prevana incisional wound vac completed on 12/30/2022 On today's evaluation that is 01/03/2023, the patient continues to be afebrile the patient is breathing comfortably on 2 L nasal cannula oxygen patient denies having any chest pain shortness breath the patient did have occasional cough some nausea but no vomiting tolerating his diet. Patient did have a white count of 10.0, creatinine 0.72 Objective - Vital Signs Vital signs: Vital Signs Temp 98.3 F 01/03/23 06:40 Pulse 70 01/03/23 06:40 Resp 18 01/03/23 06:40 BP 133/83 01/03/23 06:40 Pulse Ox 95 01/03/23 06:40 FiO2 21 12/30/22 09:33 Intake & Output 01/02/23 01/03/23 01/03/23 18:59 06:59 18:59 Output Total 840 482 4730 Balance -725 -600 -1250 Output: Urine 300 149 3614 Stool 200 Other: Voiding Method Indwelling Catheter Indwelling Catheter - Exam GENERAL DESCRIPTION: Middle-age male lying in bed in no distress RESPIRATORY SYSTEM: Unlabored breathing , clear to auscultation anteriorly HEART: S1 S2 regular rate and rhythm , ABDOMEN: Soft , mild distention and tenderness EXTREMITIES: No edema feet - Labs CBC & Chem 7: 01/05/23 07:16 01/05/23 07:16 Labs: Abnormal Lab Results - Last 24 Hours (Table) 01/02/23 01/03/23 01/03/23 Range/Units 16:55 11:13 11:13 RBC 3.34 L (4.30-5.90) m/uL Hgb 9.0 L (13.0-17.5) gm/dL Hct 28.5 L (39.0-53.0) % RDW 16.0 H (11.5-15.5) % Plt Count 713 H (150-450) k/uL Glucose 111 H (74-99) mg/dL POC Glucose (mg/dL) 134 H (70-110) mg/dL 01/03/23 Range/Units 11:50 RBC (4.30-5.90) m/uL Hgb (13.0-17.5) gm/dL Hct (39.0-53.0) % RDW (11.5-15.5) % Plt Count (150-450) k/uL Glucose (74-99) mg/dL POC Glucose (mg/dL) 117 H (70-110) mg/dL Assessment and Plan (1) Diverticulitis of intestine, part unspecified, with perforation and abscess without bleeding Current Visit: No Status: Acute Code(s): K57.80 - DVTRCLI OF INTEST, PART UNSP, W PERF AND ABSCESS W/O BLEED SNOMED Code(s): 543388028 (2) Intra-abdominal abscess Current Visit: No Status: Acute Code(s): K65.1 - PERITONEAL ABSCESS SNOMED Code(s): 46095180 Plan: 1patient with intra-abdominal abscess from perforated diverticulitis in this patient with a previous laparoscopic drainage of the abscess and cultures were negative now presented back to the hospital with worsening abdominal pain and evidence of perforation diverticulitis with intra-abdominal abscess slightly decreased in size, with a previous laparoscopic drainage culture did not grow any bacteria 2- the patient did have a repeat a CT abdominal pelvis that was reviewed with the IR and cannot be drained CT-guided, Patient status post extensive surgery drainage of the abscess sigmoid colectomy resection of the small bowel fistula and primary anastomosis completed on 12/16/2022 abdominal cultures were obtained which are so far negative 3patient is status post laparotomy and revision of his stoma completed on 12/30/2022 operative report did not mention any evidence of intra-abdominal abscess. 4mild leukocytosis likely reactive postoperatively and the patient white count has normalized. 5patient is slowly clinically proving and will continue with the Zosyn currently waiting for surgical clearance for discharge and outpatient antibiotic arrangement Dictation was produced using [employer] dictation software. please excuse any grammatical, word or spelling errors.
--- NOTE | 2023-01-05 23:15 | P.PN ---
Subjective Progress Note Date: 01/05/23 Principal diagnosis: Perforated diverticulitis and intra-abdominal abscess Patient is a 57 year male with a recent admission to the hospital with perforated diverticulitis and abscess status post laparoscopic drainage culture were negative patient received 2 weeks of IV antibiotic in the hospital subsequent discharged on oral antibiotic and presented back to the hospital with worsening abdominal pain, patient did have CT of abdominal pelvis which did shows trace peritoneal and abscess.Patient is status post exploratory laparotomy with lysis of adhesion sigmoid colectomy excision of small bowel fistula x2 and small bowel resection along with primary anastomosis procedure was completed on 12/16/2022.The patient is status post expiratory laparotomy lysis of adhesion colectomy with resection of necrotic descending colostomy along with revision of his colostomy debridement of abdominal wall midline incision and placement of prevana incisional wound vac completed on 12/30/2022 On today's evaluation that is 01/05/2023 the patient denies any fever or any chills, the patient is breathing comfortably on 2 L nasal cannula oxygen, the patient denies chest pain shortness of the cough, denies any worsening abdominal pain no nausea no vomiting tolerating his diet and did have output in his colostomy Patient white count of 8.79 hemoglobin 7.2 creatinine 0.6 Objective - Vital Signs Vital signs: Vital Signs Temp 98.4 F 01/05/23 08:02 Pulse 76 01/05/23 08:02 Resp 16 01/05/23 08:02 BP 114/74 01/05/23 08:02 Pulse Ox 93 L 01/05/23 08:19 FiO2 21 12/30/22 09:33 Intake & Output 01/04/23 01/05/23 01/05/23 18:59 06:59 18:59 Output Total 1000 Balance -1000 Output: Urine 1000 - Exam GENERAL DESCRIPTION: Middle-age male lying in bed in no distress RESPIRATORY SYSTEM: Unlabored breathing , clear to auscultation anteriorly HEART: S1 S2 regular rate and rhythm , ABDOMEN: Soft , mild distention and tenderness EXTREMITIES: No edema feet - Labs CBC & Chem 7: 01/05/23 07:16 01/05/23 07:16 Labs: Abnormal Lab Results - Last 24 Hours (Table) 01/04/23 01/05/23 01/05/23 Range/Units 19:59 07:16 07:16 RBC 2.78 L (4.40-5.60) X 10*6/uL Hgb 7.2 L (13.0-17.0) d/dL Hct 23.7 L (39.6-50.0) % MCH 25.9 L (27.0-32.0) pg MCHC 30.4 L (32.0-37.0) d/dL RDW 16.6 H (11.5-14.5) % Plt Count 588 H (140-440) X 10*3/uL MPV 9.3 L (9.5-12.2) FL Eosinophils # 0.64 H (0.04-0.35) X 10*3/uL BUN 8.6 L (9.0-27.0) mg/dL POC Glucose (mg/dL) 130 H (70-110) mg/dL Calcium 8.4 L (8.7-10.3) mg/dL Total Bilirubin 0.2 L (0.3-1.2) mg/dL C-Reactive Protein 4.90 H (0.00-0.80) mg/dL Total Protein 5.3 L (6.2-8.2) d/dL Albumin 2.5 L (3.8-4.9) d/dL Albumin/Globulin Ratio 0.89 L (1.60-3.17) Ratio Assessment and Plan (1) Diverticulitis of intestine, part unspecified, with perforation and abscess without bleeding Current Visit: No Status: Acute Code(s): K57.80 - DVTRCLI OF INTEST, PART UNSP, W PERF AND ABSCESS W/O BLEED SNOMED Code(s): 780575280 (2) Intra-abdominal abscess Current Visit: No Status: Acute Code(s): K65.1 - PERITONEAL ABSCESS SNOMED Code(s): 94221554 Plan: 1patient with intra-abdominal abscess from perforated diverticulitis in this patient with a previous laparoscopic drainage of the abscess and cultures were negative now presented back to the hospital with worsening abdominal pain and evidence of perforation diverticulitis with intra-abdominal abscess slightly decreased in size, with a previous laparoscopic drainage culture did not grow any bacteria 2- the patient did have a repeat a CT abdominal pelvis that was reviewed with the IR and cannot be drained CT-guided, Patient status post extensive surgery drainage of the abscess sigmoid colectomy resection of the small bowel fistula and primary anastomosis completed on 12/16/2022 abdominal cultures were obtained which are so far negative 3patient is status post laparotomy and revision of his stoma completed on 12/30/2022 operative report did not mention any evidence of intra-abdominal abscess. 4mild leukocytosis likely reactive postoperatively and the patient white count has normalized. 5-keeping in mind his complicated course requiring multiple surgeries and high risk of infection as per discussion with the surgical team we will recommend a 2-week course of IV Zosyn on discharge apparently the patient will be able to go to the custodial tomorrow plan on doing a CT before completion of his antibiotic therapy Dictation was produced using [employer] dictation software. please excuse any grammatical, word or spelling errors. Time with Patient: Less than 30
[2023-01-06] MEDS: HYDROmorphone 1 MG/ML 1 ML SYRINGE IVP PRN ×2 (02:08→09:32)
[2023-01-06] MEDS: LACTATED RINGERS 1,000 ML IV SCH ×2 (03:19→13:06)
[2023-01-06 06:17] LABS: Glucose,Whole Blood 105 mg/dL (70-110)
[2023-01-06] MEDS: LEVOTHYROXINE 100 MCG TAB PO SCH (06:18)
[2023-01-06] MEDS: KETOROLAC 15 MG/ML 1 ML VIAL IVP SCH ×2 (06:18→13:08)
[2023-01-06] MEDS: HYDROcodone/APAP 10-325MG 1 EACH TAB PO PRN ×2 (06:18→15:19)
[2023-01-06] MEDS: INSULIN ASPART (NovoLOG) 100 UNIT/ML VIAL SQ SCH ×2 (06:28→13:01)
[2023-01-06] MEDS ORDERED: PANTOPRAZOLE 40 MG TABLET PO SCH (07:30)
[2023-01-06 07:57] VITALS: TEMP 97.7
[2023-01-06 08:02] LABS: Anisocytosis Slight; HCT 24.4 % (39.0-53.0); HGB 7.8 gm/dL (13.0-17.5); Hypochromasia Marked; MCH 27.2 pg (25.0-35.0); MCHC 31.8 g/dL (31.0-37.0); MCV 85.3 fL (80.0-100.0); Mean Platelet Volume 7.6; Platelet Count 515 k/uL (150-450); Poikilocytosis Slight; RBC 2.86 m/uL (4.30-5.90); RDW 16.4 % (11.5-15.5); WBC 8.3 k/uL (3.8-10.6)
[2023-01-06] MEDS: metroNIDAZOLE 500 MG TAB PO SCH (09:09)
[2023-01-06] MEDS: PIPERACILLIN-TAZOBACTAM 3.375 GM in SODIUM CHLORIDE 0.9% 100 ML IVPB SCH (09:10)
[2023-01-06] MEDS: hydrALAZINE HCL 25 MG TAB PO SCH (09:13)
[2023-01-06] MEDS: METOPROLOL SUCCINATE (ER) 50 MG TAB.ER.24H PO SCH (09:13)
[2023-01-06] MEDS: CYCLOBENZAPRINE 10 MG TAB PO SCH (09:13)
[2023-01-06] MEDS: HEPARIN SODIUM,PORCINE 5,000 UNIT/ML 1 ML VIAL SQ SCH (09:13)
[2023-01-06] MEDS: GABAPENTIN 300 MG CAP PO SCH (09:13)
[2023-01-06] MEDS: ASPIRIN 81 MG PO SCH (09:13)
[2023-01-06 10:13] VITALS: PULSE 81; RESP 16
[2023-01-06] MEDS: SODIUM FERRIC GLUCONAT-SUCROSE 125 MG in SODIUM CHLORIDE 0.9% 100 ML IVPB SCH (11:11)
[2023-01-06] MEDS: LORazepam 2 MG/ML INJ IV PRN (11:15)
--- NOTE | 2023-01-06 11:34 | P.DS ---
Providers Date of admission: 12/02/22 16:18 Expected date of discharge: 01/06/23 Attending physician: Isha Zamorano Consults: 12/02/22 18:15 Consult Physician Routine Consulting Provider: Lorenzo Coronado Consult Reason/Comments: Medical Management Do you want consulting provider notified?: Yes 12/05/22 08:00 Consult Physician Routine Consulting Provider: Blank Hernandez Consult Reason/Comments: diverticulitis abscess Do you want consulting provider notified?: Yes 12/26/22 13:44 Consult Physician Routine Consulting Provider: Tono Juarez Consult Reason/Comments: pain management Do you want consulting provider notified?: Yes Primary care physician: Jewel Quintero Hospital Course: Discharge diagnosis 1. Perforated sigmoid diverticulitis with descending colostomy 2. 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 Coronary artery disease 4. Thrombocytosis 5. Hypertensive heart disease 6. Morbid obesity due to excess calories, BMI 39.3 7. Severe pelvic adhesions 8. Iron deficiency anemia status post iron transfusions Hospital course This is a 57-year-old male with a known history of perforated diverticulitis requiring hospitalization from 10/22/2022 to 11/07/2022 and treated conservatively with IV antibiotics. Patient had been doing well and then had increased abdominal pain and required readmission to the hospital on 12/03/2022 for his perforated diverticulitis with abscess. Patient has had a prolonged hospitalization. Patient did receive IV antibiotics during his hospitalization. He did not have improvement in his symptoms and require sigmoid colectomy for phlegmon with perforated diverticulitis, small bowel resection for small bowel fistula, 12/16/2022. Patient had been doing well postoperatively and had been started on diet. His ostomy had been functioning. However, the stoma became necrotic and patient required to go back to surgery on 12/30/2022 for descending colostomy necrosis due to ischemia and is status post colectomy with resection of necrotic descending colostomy and lysis of adhesions. Patient's pain is controlled. He is tolerating diet. He is afebrile. Ostomy is functioning. He is stable for discharge. Physician Offal Trimmer note has been reviewed by physician. Signing provider agrees with the documented findings, assessment, and plan of care. Patient Condition at Discharge: Stable Plan - Discharge Summary New Discharge Prescriptions: New Gabapentin [Neurontin] 300 mg PO TID PRN #9 cap PRN Reason: Pain Piperacillin-Tazobactam [Zosyn] 3.375 gm IVPB Q8HR 14 Days each Cyclobenzaprine [Flexeril] 10 mg PO TID #9 tab Continue Albuterol Inhaler [Ventolin Hfa Inhaler] 1 - 2 puff INHALATION RT-Q6H PRN PRN Reason: asthma Aspirin EC [Ecotrin Low Dose] 81 mg PO DAILY Famotidine [Pepcid] 20 mg PO BID PRN PRN Reason: ACID REFLUX Levothyroxine Sodium [Synthroid] 100 mcg PO DAILY metFORMIN HCL [Glucophage] 500 mg PO BID 30 Days #60 tab NIFEdipine XL [Procardia XL] 60 mg PO Q12HR 30 Days #30 tab HYDROcodone/APAP 10-325MG [[place] 10-325] 1 tab PO Q4HR PRN 7 Days #42 tab PRN Reason: Pain Metoprolol Succinate (ER) [Toprol XL] 50 mg PO DAILY Rosuvastatin Calcium [Crestor] 40 mg PO DAILY hydrALAZINE HCL [Apresoline] 25 mg PO BID 30 Days #60 tab Discontinued Ticagrelor [Brilinta] 90 mg PO BID metroNIDAZOLE [Flagyl] 500 mg PO TID 10 Days #30 tab Acetaminophen Tab [Tylenol] 1,000 mg PO Q6HR PRN PRN Reason: Pain Or Fever > 100.5 No Action lisinopriL [Zestril] 40 mg PO DAILY 30 Days #60 tab Discharge Medication List Albuterol Inhaler [Ventolin Hfa Inhaler] 1 - 2 puff INHALATION RT-Q6H PRN 04/01/16 [History] Aspirin EC [Ecotrin Low Dose] 81 mg PO DAILY 10/22/22 [History] Famotidine [Pepcid] 20 mg PO BID PRN 10/22/22 [History] Levothyroxine Sodium [Synthroid] 100 mcg PO DAILY 10/22/22 [History] Metoprolol Succinate (ER) [Toprol XL] 50 mg PO DAILY 10/22/22 [History] Rosuvastatin Calcium [Crestor] 40 mg PO DAILY 10/22/22 [History] NIFEdipine XL [Procardia XL] 60 mg PO Q12HR 30 Days #30 tab 11/07/22 [Rx] hydrALAZINE HCL [Apresoline] 25 mg PO BID 30 Days #60 tab 11/07/22 [Rx] lisinopriL [Zestril] 40 mg PO DAILY 30 Days #60 tab 11/07/22 [Rx] metFORMIN HCL [Glucophage] 500 mg PO BID 30 Days #60 tab 11/07/22 [Rx] HYDROcodone/APAP 10-325MG [[place] 10-325] 1 tab PO Q4HR PRN 7 Days #42 tab 12/26/22 [Rx] Cyclobenzaprine [Flexeril] 10 mg PO TID #9 tab 01/06/23 [Rx] Gabapentin [Neurontin] 300 mg PO TID PRN #9 cap 01/06/23 [Rx] Piperacillin-Tazobactam [Zosyn] 3.375 gm IVPB Q8HR 14 Days each 01/06/23 [Rx] Follow up Appointment(s)/Referral(s): Isha Zamorano MD [STAFF PHYSICIAN] - 01/10/23 Jewel Quintero DO [Primary Care Provider] - 1-2 days Activity/Diet/Wound Care/Special Instructions: Wear abdominal binder at all times for comfort. No lifting over 4 pounds in 4 weeks You May shower. Cover the Nader drain with 4x4 dressings No bath tub soaks for two weeks Continue Regular diet Continue Ensure protein drinks to promote healing Discharge Disposition: TRANSFER TO SNF/ECF
[2023-01-06 11:48] LABS: Glucose,Whole Blood 116 mg/dL (70-110)
[2023-01-06 13:41] VITALS: BP 128/75
--- NOTE | 2023-01-06 14:59 | P.PN ---
Subjective Progress Note Date: 01/06/23 Subjective: Seen and examined at bedside. No acute events overnight. Pertinent positives and negatives as discussed above, a complete review of systems was performed and all other systems are negative. Vitals Signs Reviewed. General: non toxic, no distress, appears at stated age Derm: warm, dry Head: atraumatic, normocephalic, symmetric Eyes: EOMI, no lid lag, anicteric sclera Cardiovascular: S1S2 reg, no murmur Lungs: CTA bilateral, no rhonchi, no rales , no accessory muscle use Abdominal: surgical incision dressing c/d/i, no guarding, no appreciable organomegaly, colostomy intact Ext: no gross muscle atrophy, no edema, no contractures Neuro: no focal neuro deficits Psych: Alert, oriented, appropriate affect Data Reviewed Today: Pertinent Labs: Hemoglobin 7.8, blood sugars range between 105-120 Imaging: No new imaging Assessment and Plan: Sepsis secondary to perforated sigmoid diverticulitis with abscess formation status post exploratory laparotomy with lysis of adhesions, sigmoid colectomy, drainage of pelvic abscess on 12/16, repeat exploratory laparotomy with extensive lysis of 50 lesion, colectomy with resection of necrotic descending colostomy on 12/30 Acute blood loss anemia, hemoglobin stable and improving Iron deficiency anemia Ileus resolved History of CAD status post stent Hypertension Dyslipidemia Type 2 diabetes Hypothyroidism Asthma exacerbation, resolved -Medications reconciled for discharge to rehab facility -ID recommending 2 weeks of IV Zosyn, PICC line in place -brillinta discontinued as part extension was placed over one year ago, continue aspirin and statin -Lisinopril discontinued as blood pressure has been well controlled on nifed ipine and hydralazine -Recommend PCP follow-up for further blood pressure medication reconciliation, ideally should be on KG inhibitor and taken off of hydralazine Patient is medically optimized for discharge to rehab facility Thank you for allowing us to participate in the care of this pleasant patient. Do not hesitate to contact us with questions. Someone can be reached from the [facility] hospitalist group all hours of the day at [phone] or via perfect serve. Objective - Vital Signs Vital signs: Vital Signs Temp 97.7 F 01/06/23 13:40 Pulse 81 01/06/23 13:40 Resp 16 01/06/23 10:10 BP 128/75 01/06/23 13:40 Pulse Ox 97 01/06/23 13:40 FiO2 21 12/30/22 09:33 Intake & Output 01/05/23 01/06/23 01/06/23 18:59 06:59 18:59 Intake Total 1840 Output Total 950 1900 1900 Balance -950 -1900 -60 Weight 131.542 kg Intake: Intake, IV Titration 1600 Amount Lactated Ringers 1,000 ml 1500 @ 125 mls/hr IV .Q8H TANJA Rx#:[id number] Piperacillin-Tazobactam 3 100 .375 gm In Sodium Chloride 0.9% 100 ml @ 25 mls/hr IVPB Q8HR TANJA Rx# :[id number] Oral 240 Output: Drainage 0 Medial Abdomen 0 Urine 950 1900 1900 Other: Voiding Method Urinal Urinal # Voids 1 - Labs CBC & Chem 7: 01/06/23 05:27 01/05/23 07:16 Labs: Abnormal Lab Results - Last 24 Hours (Table) 01/05/23 01/06/23 01/06/23 Range/Units 21:12 05:27 11:45 RBC 2.86 L (4.30-5.90) m/uL Hgb 7.8 L (13.0-17.5) gm/dL Hct 24.4 L (39.0-53.0) % RDW 16.4 H (11.5-15.5) % Plt Count 515 H (150-450) k/uL POC Glucose (mg/dL) 120 H 116 H (70-110) mg/dL
== END 2023-01-06 15:21 | DRG 853 ==
LOC: EC 11:58 → 4SSUR 16:18
PROVIDERS: ADMIT Surgery Plastic and Reconstructive Surgery; ATTEND Surgery Plastic and Reconstructive Surgery
PROC: 02HV33Z Insertion of Infusion Device into Superior Vena Cava, Percutaneous Approach (ICD-10-PCS; 2022-12-15)
PROC: 3E0T3BZ Introduction of Anesthetic Agent into Peripheral Nerves and Plexi, Percutaneous Approach (ICD-10-PCS; 2022-12-16)
PROC: 0DTN0ZZ Resection of Sigmoid Colon, Open Approach (ICD-10-PCS; principal; 2022-12-17)
PROC: 0D1M0Z4 Bypass Descending Colon to Cutaneous, Open Approach (ICD-10-PCS; 2022-12-17)
PROC: 0DNA0ZZ Release Jejunum, Open Approach (ICD-10-PCS; 2022-12-17)
PROC: 0DN80ZZ Release Small Intestine, Open Approach (ICD-10-PCS; 2022-12-17)
PROC: 0DNV0ZZ Release Mesentery, Open Approach (ICD-10-PCS; 2022-12-17)
PROC: 0D9670Z Drainage of Stomach with Drainage Device, Via Natural or Artificial Opening (ICD-10-PCS; 2022-12-17)
PROC: 0DNW0ZZ Release Peritoneum, Open Approach (ICD-10-PCS; 2022-12-17)
PROC: 0DBA0ZZ Excision of Jejunum, Open Approach (ICD-10-PCS; 2022-12-17)
PROC: 0W9J00Z Drainage of Pelvic Cavity with Drainage Device, Open Approach (ICD-10-PCS; 2022-12-17)
PROC: 3E0M05Z Introduction of Adhesion Barrier into Peritoneal Cavity, Open Approach (ICD-10-PCS; 2022-12-17)
PROC: 3E0436Z Introduction of Nutritional Substance into Central Vein, Percutaneous Approach (ICD-10-PCS; 2022-12-19)
PROC: 30233N1 Transfusion of Nonautologous Red Blood Cells into Peripheral Vein, Percutaneous Approach (ICD-10-PCS; 2022-12-20)
DX: A41.9 Sepsis, unspecified organism (principal); K55.049 Acute infarction of large intestine, extent unspecified; K65.1 Peritoneal abscess; K56.52 Intestinal adhesions [bands] with complete obstruction; K55.9 Vascular disorder of intestine, unspecified; K56.7 Ileus, unspecified; Z68.41 Body mass index [BMI] 40.0-44.9, adult; T81.41XA Infection following a procedure, superficial incisional surgical site, initial encounter; K63.2 Fistula of intestine; K57.20 Diverticulitis of large intestine with perforation and abscess without bleeding; J45.901 Unspecified asthma with (acute) exacerbation; D62 Acute posthemorrhagic anemia; K28.3 Acute gastrojejunal ulcer without hemorrhage or perforation; J44.9 Chronic obstructive pulmonary disease, unspecified; F11.10 Opioid abuse, uncomplicated; E66.01 Morbid (severe) obesity due to excess calories; K66.8 Other specified disorders of peritoneum; I11.9 Hypertensive heart disease without heart failure; E03.9 Hypothyroidism, unspecified; D50.9 Iron deficiency anemia, unspecified; I25.5 Ischemic cardiomyopathy; I25.10 Atherosclerotic heart disease of native coronary artery without angina pectoris; D75.839 Thrombocytosis, unspecified; K21.9 Gastro-esophageal reflux disease without esophagitis; E78.5 Hyperlipidemia, unspecified; G89.4 Chronic pain syndrome; H91.90 Unspecified hearing loss, unspecified ear; E87.6 Hypokalemia; E87.5 Hyperkalemia; F41.9 Anxiety disorder, unspecified; Y83.3 Surgical operation with formation of external stoma as the cause of abnormal reaction of the patient, or of later complication, without mention of misadventure at the time of the procedure; Z86.718 Personal history of other venous thrombosis and embolism; I25.2 Old myocardial infarction; Z95.5 Presence of coronary angioplasty implant and graft; Z98.1 Arthrodesis status; Z28.310 Unvaccinated for COVID-19; Z86.14 Personal history of Methicillin resistant Staphylococcus aureus infection; Z79.899 Other long term (current) drug therapy; Z79.82 Long term (current) use of aspirin; Z79.890 Hormone replacement therapy; Z79.02 Long term (current) use of antithrombotics/antiplatelets; Z79.84 Long term (current) use of oral hypoglycemic drugs; Z88.2 Allergy status to sulfonamides; Z80.1 Family history of malignant neoplasm of trachea, bronchus and lung; Z80.0 Family history of malignant neoplasm of digestive organs; Z80.8 Family history of malignant neoplasm of other organs or systems; Z97.8 Presence of other specified devices
CPT/HCPCS: 36415; 36573; 64488; 74018; 74177; 80048; 80053; 81001; 82150; 82330; 82728; 83540; 83550; 83605; 83690; 83735; 84100; 84132; 84478; 84484; 85025; 85027; 85610; 85730; 86140; 86850; 86900; 86901; 86920; 87040; 87070; 87075; 87205; 88304; 88307; 93306; 94760; 96361; 96365; 96366; 96375; 96376; 99285